=== PATIENT | female | born 1975 | race African-American/Black ===

== ENCOUNTER 2016-11-24 21:47 | Inpatient (IN) | payer MEDICARE, MEDICAID ==
[2016-11-24 23:09] LABS: ABSOLUTE BASOPHILS # (AUTO) 0.1 10^3/uL (0.0-0.2); ABSOLUTE EOSINOPHILS # (AUTO) 0.1 10^3/uL (0.0-0.6); ABSOLUTE LYMPHOCYTES (AUTO) 0.6 10^3/uL (0.5-4.7); ABSOLUTE MONOCYTES (AUTO) 0.4 10^3/uL (0.1-1.4); ABSOLUTE NEUT (AUTO) 4.2 10^3/uL (1.7-8.2); BASOPHILS % (AUTO) 1.3 % (0-2); EOSINOPHILS % (AUTO) 1.4 % (0-6); HEMATOCRIT 40.3 % (36.0-47.0); HEMOGLOBIN 13.1 g/dL (12.0-15.5); LYMPHOCYTES % (AUTO) 10.3 % (13-45); MEAN CORPUSCULAR HEMOGLOBIN 29.3 pg (27.0-33.4); MEAN CORPUSCULAR HGB CONC 32.6 g/dL (32.0-36.0); MEAN CORPUSCULAR VOLUME 90 fl (80-97); MONOCYTES % (AUTO) 8.2 % (3-13); RED BLOOD COUNT 4.47 10^6/uL (3.72-5.28); RED CELL DISTRIBUTION WIDTH 15.9 % (11.5-14.0); SEGMENTED NEUTROPHILS % (AUTO) 78.8 % (42-78); WHITE BLOOD COUNT 5.4 10^3/uL (4.0-10.5)
[2016-11-24] MEDS ORDERED: ALBUTEROL SULFATE HFA (90 MCG/PUFF) 200 PUFF/8.5 GM MDI IH PRN (23:15)
[2016-11-24 23:21] LABS: ANION GAP 10 (5-19); BLOOD UREA NITROGEN 44 mg/dL (7-20); CALCIUM 8.1 mg/dL (8.4-10.2); CARBON DIOXIDE 21 mmol/L (22-30); CHLORIDE 112 mmol/L (98-107); CREATININE RESULT 2.28 mg/dL (0.52-1.25); GLUCOSE 70 mg/dL (75-110); POTASSIUM 3.8 mmol/L (3.6-5.0)
[2016-11-24] MEDS ORDERED: CARVEDILOL 12.5 MG TABLET PO SCH (23:30)
[2016-11-24] MEDS ORDERED: FUROSEMIDE 80 MG TABLET PO SCH (23:30)
[2016-11-25] MEDS: DIPHENHYDRAMINE HCL 25 MG CAPSULE PO PRN ×4 (01:05→21:29)
[2016-11-25] MEDS: MORPHINE SULFATE 10 MG/ML INJ IV PRN ×3 (01:05→21:29)
[2016-11-25 07:33] LABS: PROTHROMBIN TIME 15.1 SEC (11.4-15.4)
[2016-11-25 07:34] LABS: PARTIAL THROMBOPLASTIN TIME 33.6 SEC (23.5-35.8)
[2016-11-25] MEDS: METOLAZONE 5 MG TABLET PO SCH (10:18)
[2016-11-25] MEDS: CARVEDILOL 12.5 MG TABLET PO SCH ×2 (10:19→21:29)
[2016-11-25] MEDS: FAMOTIDINE 20 MG TABLET PO SCH (10:19)
[2016-11-25] MEDS: LISINOPRIL 10 MG TABLET PO SCH (10:19)
[2016-11-25] MEDS: ISOSORBIDE MONONITRATE 60 MG TAB.ER.24H PO SCH (10:20)
[2016-11-25] MEDS: DIGOXIN 0.125 MG TABLET PO SCH (10:20)
[2016-11-25] MEDS: FUROSEMIDE 80 MG TABLET PO SCH (13:09)
--- NOTE | 2016-11-25 17:38 | PDOC H&P ---
History of Present Illness Admission Date/PCP: 11/24/16 21:47 VU GUZMAN MD History of Present Illness: BERONICA YEUNG is a 41 year old female, she also history of chronic combined systolic and diastolic failure, she was admitted directly from the office to the hospital because it was felt that she have ascites on that she needed to have abdominal paracentesis, but the CT scan of the abdomen and pelvis did not show any ascite it showed abdominal wall anasarca. She was admitted for observation Past Medical History Cardiac Medical History: Reports: Congestive Heart Failure, Coronary Artery Disease, Myocardial Infarction, Hypertension Endocrine Medical History: Reports: Diabetes Mellitus Type 2 Renal/ Medical History: Reports: Chronic Kidney Disease - Chronic kidney disease stage IV, Other - Nephrotic syndrome GI Medical History: Reports: Gastroesophageal Reflux Disease Psychiatric Medical History: Reports: Depression Past Surgical History Past Surgical History: Reports: Cardiac Catheterization - stent x1, Coronary Stent, Pacemaker - AICD Social History Smoking Status: Never Smoker Frequency of Alcohol Use: None Hx Recreational Drug Use: No Hx Prescription Drug Abuse: No Family History Family History: Reviewed & Not Pertinent, Hypertension Parental Family History Reviewed: Yes Children Family History Reviewed: Yes Sibling(s) Family History Reviewed.: Yes Medication/Allergy Home Medications: Albuterol Sulfate [Proair Respiclick] 90 mcg IH Q4HP PRN 11/25/16 Allopurinol [Zyloprim 100 mg Tablet] 100 mg PO DAILY 11/25/16 Aspirin [Aspirin 81 mg Chewable Tablet] 81 mg PO DAILY 11/25/16 Atorvastatin Calcium [Lipitor 80 mg Tablet] 80 mg PO DAILY 11/25/16 Carvedilol [Coreg 25 mg Tablet] 12.5 tab PO Q12 11/25/16 Diazepam [Valium] 10 mg PO DAILY 11/25/16 Diphenhydramine HCl [Benadryl] 50 mg PO Q8 11/25/16 Docusate Sodium [Colace 100 mg Capsule] 100 mg PO BIDP PRN 11/25/16 Furosemide [Lasix] 80 mg PO BID 11/25/16 Isosorbide Mononitrate [Isosorbide Mononitrate ER] 120 mg PO DAILY 11/25/16 Morphine Sulfate [Morphine Ir 15 Mg Tablet] 10 mg PO Q8 11/25/16 Omeprazole 40 mg PO DAILY 02/28/17 Sacubitril/Valsartan [Entresto 24 mg-26 mg Tablet] 1 each PO BID 11/25/16 Simethicone [Gas Relief] 125 mg PO QID 11/25/16 Allergies/Adverse Reactions: hydrocodone bitartrate [From Vicodin] Allergy (Verified 11/14/13 15:11) Hives hydromorphone HCl [From Dilaudid] Allergy (Verified 11/14/13 15:11) Hives levofloxacin [From Levaquin] Allergy (Verified 11/14/13 15:11) Hives oxycodone HCl [From Percocet] Allergy (Verified 11/14/13 15:11) Hives tramadol [Tramadol] Allergy (Verified 11/14/13 15:11) Hives Review of Systems Constitutional: PRESENT: fatigue, weight gain Cardiovascular: PRESENT: dyspnea on exertion Gastrointestinal: PRESENT: abdominal pain, bloating, nausea Musculoskeletal: PRESENT: back pain Psychiatric: PRESENT: depression Physical Exam Vital Signs: Temp Pulse Resp BP Pulse Ox 98.8 F 73 16 141/96 H 100 11/25/16 16:00 11/25/16 16:00 11/25/16 16:00 11/25/16 16:00 11/25/16 16:00 Intake & Output 11/24/16 11/25/16 11/26/16 06:59 06:59 06:59 Intake Total 360 Balance 360 Weight 109.225 kg General appearance: PRESENT: mild distress Head exam: PRESENT: atraumatic, normocephalic Eye exam: PRESENT: conjunctiva pink, EOMI, PERRLA Mouth exam: PRESENT: moist, tongue midline Neck exam: PRESENT: full ROM Respiratory exam: PRESENT: crackles Cardiovascular exam: PRESENT: RRR, +S1, +S2 Vascular exam: PRESENT: normal capillary refill GI/Abdominal exam: PRESENT: normal bowel sounds, soft, other - There is abdominal wall edema Rectal exam: PRESENT: deferred Extremities exam: PRESENT: pedal edema, other - There is lower extremity up to the thighs Neurological exam: PRESENT: alert, awake, oriented to person, oriented to place , oriented to time, oriented to situation, CN II-XII grossly intact Psychiatric exam: PRESENT: appropriate affect, normal mood Skin exam: PRESENT: dry, intact, warm Results Laboratory Results: 11/24/16 23:05 11/24/16 23:05 11/24/16 11/24/16 23:05 23:05 WBC 5.4 RBC 4.47 Hgb 13.1 Hct 40.3 MCV 90 MCH 29.3 MCHC 32.6 RDW 15.9 H Plt Count 190 Seg Neutrophils % 78.8 H Lymphocytes % 10.3 L Monocytes % 8.2 Eosinophils % 1.4 Basophils % 1.3 Absolute Neutrophils 4.2 Absolute Lymphocytes 0.6 Absolute Monocytes 0.4 Absolute Eosinophils 0.1 Absolute Basophils 0.1 Sodium 143.0 Potassium 3.8 Chloride 112 H Carbon Dioxide 21 L Anion Gap 10 BUN 44 H Creatinine 2.28 H Est GFR ( Amer) 29 L Est GFR (Non-Af Amer) 24 L Glucose 70 L Calcium 8.1 L Impressions: Abdomen/Pelvis CT 11/25/16 00:00 IMPRESSION: No ascites. Third-spacing of fluid along the abdominal wall fat, anasarca Moderate right, small left pleural effusions Assessment & Plan - Diagnosis (1) Anasarca Is this a current diagnosis for this admission?: YesPlan: The anasarca is from combination of nephrotic syndrome and chronic diastolic and systolic heart failure, she will be diuresed with furosemide infusion thank you (2) Chronic combined systolic (congestive) and diastolic (congestive) heart failure Is this a current diagnosis for this admission?: Yes (3) Chronic kidney disease, stage 4 (severe) Is this a current diagnosis for this admission?: Yes (4) Nephrotic syndrome Is this a current diagnosis for this admission?: Yes
[2016-11-25] MEDS: NORMAL SALINE 250 ML with FUROSEMIDE 250 MG IV PRN ×2 (20:38)
[2016-11-25] MEDS: ONDANSETRON 4 MG TAB.RAPDIS PO PRN (21:29)
[2016-11-26] MEDS: ZOLPIDEM TARTRATE 5 MG TABLET PO PRN ×2 (00:27→22:44)
[2016-11-26] MEDS: METOLAZONE 5 MG TABLET PO SCH (10:41)
[2016-11-26] MEDS: DIGOXIN 0.125 MG TABLET PO SCH (10:42)
[2016-11-26] MEDS: FAMOTIDINE 20 MG TABLET PO SCH (10:43)
[2016-11-26] MEDS: ISOSORBIDE MONONITRATE 60 MG TAB.ER.24H PO SCH (10:43)
[2016-11-26] MEDS: FUROSEMIDE 80 MG TABLET PO SCH (10:46)
[2016-11-26] MEDS: CARVEDILOL 12.5 MG TABLET PO SCH ×2 (10:46→22:44)
[2016-11-26] MEDS: LISINOPRIL 10 MG TABLET PO SCH (10:46)
--- NOTE | 2016-11-26 17:20 | PDOC PROGRESS REPORT ---
Subjective Progress Note for:: 11/26/16 Subjective:: Patient was admitted for observation due to anasarca for combination of nephrotic syndrome and combined diastolic and systolic heart failure. She was admitted for treatment, she is diuresing quite well with the intravenous furosemide. She said she wants to stay one more day because of the very good result she is seeing. Physical Exam Vital Signs: Temp Pulse Resp BP Pulse Ox 97.3 F 70 20 122/81 98 11/26/16 15:56 11/26/16 15:56 11/26/16 15:56 11/26/16 15:56 11/26/16 15:56 Intake & Output 11/25/16 11/26/16 11/27/16 06:59 06:59 06:59 Intake Total 360 1175 747 Balance 360 1175 747 Weight 109.225 kg 107.2 kg General appearance: PRESENT: no acute distress Eye exam: PRESENT: PERRLA Respiratory exam: PRESENT: clear to auscultation abdi Cardiovascular exam: PRESENT: +S1, +S2 GI/Abdominal exam: PRESENT: other - Abdominal wall edema Neurological exam: PRESENT: alert, CN II-XII grossly intact Results Laboratory Results: 11/24/16 23:05 11/24/16 23:05 Impressions: Abdomen/Pelvis CT 11/25/16 00:00 IMPRESSION: No ascites. Third-spacing of fluid along the abdominal wall fat, anasarca Moderate right, small left pleural effusions Assessment & Plan - Diagnosis (1) Anasarca Is this a current diagnosis for this admission?: YesPlan: She will continue furosemide infusion at the same rate (2) Chronic combined systolic (congestive) and diastolic (congestive) heart failure Is this a current diagnosis for this admission?: Yes (3) Chronic kidney disease, stage 4 (severe) Is this a current diagnosis for this admission?: Yes (4) Nephrotic syndrome Is this a current diagnosis for this admission?: Yes
[2016-11-26 18:31] LABS: ANION GAP 9 (5-19); BLOOD UREA NITROGEN 49 mg/dL (7-20); CALCIUM 8.6 mg/dL (8.4-10.2); CARBON DIOXIDE 27 mmol/L (22-30); CHLORIDE 103 mmol/L (98-107); GLUCOSE 98 mg/dL (75-110); POTASSIUM 4.6 mmol/L (3.6-5.0); SODIUM 138.7 mmol/L (137-145)
[2016-11-26] MEDS: NORMAL SALINE 250 ML with FUROSEMIDE 250 MG IV PRN ×2 (18:36)
[2016-11-26] MEDS: DIPHENHYDRAMINE HCL 25 MG CAPSULE PO PRN (22:44)
[2016-11-26] MEDS: ONDANSETRON 4 MG TAB.RAPDIS PO PRN (22:44)
[2016-11-26] MEDS: MORPHINE SULFATE 10 MG/ML INJ IV PRN (22:55)
[2016-11-27] MEDS: METOLAZONE 5 MG TABLET PO SCH (10:06)
[2016-11-27] MEDS: DIGOXIN 0.125 MG TABLET PO SCH (10:06)
[2016-11-27] MEDS: FAMOTIDINE 20 MG TABLET PO SCH (10:07)
[2016-11-27] MEDS: ISOSORBIDE MONONITRATE 60 MG TAB.ER.24H PO SCH (10:08)
[2016-11-27] MEDS: CARVEDILOL 12.5 MG TABLET PO SCH ×2 (10:08→22:26)
[2016-11-27] MEDS: NORMAL SALINE 250 ML with FUROSEMIDE 250 MG IV PRN ×4 (10:08→18:38)
[2016-11-27] MEDS: LISINOPRIL 10 MG TABLET PO SCH (10:08)
--- NOTE | 2016-11-27 20:28 | PDOC PROGRESS REPORT ---
Subjective Progress Note for:: 11/27/16 Subjective:: Patient seen by the bedside she is still on Lasix infusion Physical Exam Vital Signs: Temp Pulse Resp BP Pulse Ox 97.5 F 72 16 115/75 98 11/27/16 17:11 11/27/16 17:11 11/27/16 17:11 11/27/16 17:11 11/27/16 17:11 Intake & Output 11/26/16 11/27/16 11/28/16 06:59 06:59 06:59 Intake Total 1175 1747 621 Balance 1175 1747 621 Weight 107.2 kg 106.2 kg General appearance: PRESENT: no acute distress Eye exam: PRESENT: PERRLA Respiratory exam: PRESENT: decreased breath sounds Cardiovascular exam: PRESENT: +S1, +S2 GI/Abdominal exam: PRESENT: soft Neurological exam: PRESENT: alert, CN II-XII grossly intact Results Laboratory Results: 11/24/16 23:05 11/26/16 18:00 Impressions: Abdomen/Pelvis CT 11/25/16 00:00 IMPRESSION: No ascites. Third-spacing of fluid along the abdominal wall fat, anasarca Moderate right, small left pleural effusions Assessment & Plan - Diagnosis (1) Anasarca Is this a current diagnosis for this admission?: Yes (2) Chronic combined systolic (congestive) and diastolic (congestive) heart failure Is this a current diagnosis for this admission?: Yes (3) Chronic kidney disease, stage 4 (severe) Is this a current diagnosis for this admission?: Yes (4) Nephrotic syndrome Is this a current diagnosis for this admission?: Yes
[2016-11-27 20:57] LABS: ANION GAP 8 (5-19); BLOOD UREA NITROGEN 58 mg/dL (7-20); CALCIUM 8.4 mg/dL (8.4-10.2); CARBON DIOXIDE 31 mmol/L (22-30); CHLORIDE 99 mmol/L (98-107); CREATININE RESULT 2.69 mg/dL (0.52-1.25); GLUCOSE 81 mg/dL (75-110); POTASSIUM 3.9 mmol/L (3.6-5.0); SODIUM 137.8 mmol/L (137-145)
[2016-11-27] MEDS: DIPHENHYDRAMINE HCL 25 MG CAPSULE PO PRN (22:26)
[2016-11-27] MEDS: ONDANSETRON 4 MG TAB.RAPDIS PO PRN (22:26)
[2016-11-27] MEDS: ZOLPIDEM TARTRATE 5 MG TABLET PO PRN (22:27)
[2016-11-27] MEDS: MORPHINE SULFATE 10 MG/ML INJ IV PRN (23:22)
[2016-11-27] MEDS: DOCUSATE SODIUM 100 MG CAPSULE PO PRN (23:22)
[2016-11-28] MEDS: FUROSEMIDE 80 MG TABLET PO SCH ×2 (06:24→13:36)
[2016-11-28] MEDS: METOLAZONE 5 MG TABLET PO SCH (10:57)
[2016-11-28] MEDS: FAMOTIDINE 20 MG TABLET PO SCH (10:57)
[2016-11-28] MEDS: CARVEDILOL 12.5 MG TABLET PO SCH ×2 (11:08→22:57)
[2016-11-28] MEDS: LISINOPRIL 10 MG TABLET PO SCH (11:08)
[2016-11-28] MEDS: DIGOXIN 0.125 MG TABLET PO SCH (11:08)
[2016-11-28] MEDS: ISOSORBIDE MONONITRATE 60 MG TAB.ER.24H PO SCH (11:08)
[2016-11-28] MEDS: DOCUSATE SODIUM 100 MG CAPSULE PO PRN ×2 (11:13→22:57)
[2016-11-28] MEDS: MAGNESIUM CITRATE 296 ML BOTTLE PO PRN (22:56)
[2016-11-28] MEDS: ONDANSETRON 4 MG TAB.RAPDIS PO PRN (22:57)
[2016-11-28] MEDS: DIPHENHYDRAMINE HCL 25 MG CAPSULE PO PRN (22:57)
[2016-11-28] MEDS: ZOLPIDEM TARTRATE 5 MG TABLET PO PRN (22:57)
[2016-11-28] MEDS: MORPHINE SULFATE 10 MG/ML INJ IV PRN (22:57)
[2016-11-29] MEDS: MORPHINE SULFATE 10 MG/ML INJ IV PRN ×2 (04:01→21:55)
[2016-11-29] MEDS: DIPHENHYDRAMINE HCL 25 MG CAPSULE PO PRN ×2 (06:09→21:55)
[2016-11-29] MEDS: MAGNESIUM CITRATE 296 ML BOTTLE PO PRN (06:12)
[2016-11-29] MEDS: CARVEDILOL 12.5 MG TABLET PO SCH ×2 (10:43→21:55)
[2016-11-29] MEDS: DIGOXIN 0.125 MG TABLET PO SCH (10:43)
[2016-11-29] MEDS: ISOSORBIDE MONONITRATE 60 MG TAB.ER.24H PO SCH (10:43)
[2016-11-29] MEDS: METOLAZONE 5 MG TABLET PO SCH (10:43)
[2016-11-29] MEDS: FAMOTIDINE 20 MG TABLET PO SCH (10:44)
[2016-11-29] MEDS: DOCUSATE SODIUM 100 MG CAPSULE PO PRN ×2 (10:46→23:58)
[2016-11-29] MEDS: LISINOPRIL 10 MG TABLET PO SCH (10:47)
--- NOTE | 2016-11-29 17:12 | PDOC PROGRESS REPORT ---
Subjective Progress Note for:: 11/28/16 Subjective:: Patient was seen by the bedside, she continues to require Lasix infusion she is diuresing very well Physical Exam Vital Signs: Temp Pulse Resp BP Pulse Ox 97.3 F 73 14 114/68 99 11/28/16 15:08 11/28/16 15:08 11/28/16 15:08 11/28/16 15:08 11/28/16 15:08 Intake & Output 11/27/16 11/28/16 11/29/16 06:59 06:59 06:59 Intake Total 1747 1646 1230 Balance 1747 1646 1230 Weight 106.2 kg 105.6 kg General appearance: PRESENT: no acute distress Eye exam: PRESENT: PERRLA Cardiovascular exam: PRESENT: +S1, +S2 Neurological exam: PRESENT: alert Results Laboratory Results: 11/24/16 23:05 11/27/16 20:40 11/27/16 20:40 Sodium 137.8 Potassium 3.9 Chloride 99 Carbon Dioxide 31 H Anion Gap 8 BUN 58 H Creatinine 2.69 H Est GFR ( Amer) 24 L Est GFR (Non-Af Amer) 20 L Glucose 81 Calcium 8.4 Impressions: Abdomen/Pelvis CT 11/25/16 00:00 IMPRESSION: No ascites. Third-spacing of fluid along the abdominal wall fat, anasarca Moderate right, small left pleural effusions Assessment & Plan - Diagnosis (1) Anasarca Is this a current diagnosis for this admission?: YesPlan: Continue IV furosemide (2) Chronic combined systolic (congestive) and diastolic (congestive) heart failure Is this a current diagnosis for this admission?: Yes (3) Chronic kidney disease, stage 4 (severe) Is this a current diagnosis for this admission?: Yes (4) Nephrotic syndrome Is this a current diagnosis for this admission?: Yes
[2016-11-29] MEDS ORDERED: FUROSEMIDE INJ/PF 100 MG/10 ML SDV ONE (22:58)
[2016-11-30] MEDS: MORPHINE SULFATE 10 MG/ML INJ IV PRN ×3 (01:04→18:43)
[2016-11-30] MEDS: MAGNESIUM CITRATE 296 ML BOTTLE PO PRN (09:55)
[2016-11-30] MEDS: CARVEDILOL 12.5 MG TABLET PO SCH ×2 (09:55→21:31)
[2016-11-30] MEDS: DIGOXIN 0.125 MG TABLET PO SCH (09:56)
[2016-11-30] MEDS: LISINOPRIL 10 MG TABLET PO SCH (09:56)
[2016-11-30] MEDS: METOLAZONE 5 MG TABLET PO SCH (09:56)
[2016-11-30] MEDS: FAMOTIDINE 20 MG TABLET PO SCH (09:56)
[2016-11-30] MEDS: ISOSORBIDE MONONITRATE 60 MG TAB.ER.24H PO SCH (09:56)
[2016-11-30] MEDS: DIPHENHYDRAMINE HCL 25 MG CAPSULE PO PRN ×2 (10:00→18:45)
--- NOTE | 2016-11-30 15:18 | PDOC PROGRESS REPORT ---
Subjective Progress Note for:: 11/29/16 Subjective:: Patient was seen by the bedside, she has no new complaints Physical Exam Vital Signs: Temp Pulse Resp BP Pulse Ox 97.4 F 70 20 109/68 100 11/30/16 07:44 11/30/16 12:26 11/30/16 12:26 11/30/16 12:26 11/30/16 12:26 Intake & Output 11/29/16 11/30/16 12/01/16 06:59 06:59 06:59 Intake Total 2080 690 Output Total 1800 Balance 280 690 General appearance: PRESENT: no acute distress, well-developed, well-nourished Head exam: PRESENT: atraumatic, normocephalic Eye exam: PRESENT: conjunctiva pink, EOMI, PERRLA Ear exam: PRESENT: normal external ear exam Neck exam: PRESENT: full ROM Respiratory exam: PRESENT: clear to auscultation abdi Cardiovascular exam: PRESENT: RRR, +S1, +S2 Pulses: PRESENT: normal dorsalis pedis pul, +2 pedal pulses bilateral Vascular exam: PRESENT: normal capillary refill GI/Abdominal exam: PRESENT: normal bowel sounds, soft Rectal exam: PRESENT: deferred Neurological exam: PRESENT: alert, awake, oriented to person, oriented to place , oriented to time, oriented to situation, CN II-XII grossly intact. ABSENT: motor sensory deficit Psychiatric exam: PRESENT: appropriate affect, normal mood Skin exam: PRESENT: dry, intact, warm Results Laboratory Results: 11/24/16 23:05 11/27/16 20:40 Impressions: Abdomen/Pelvis CT 11/25/16 00:00 IMPRESSION: No ascites. Third-spacing of fluid along the abdominal wall fat, anasarca Moderate right, small left pleural effusions Assessment & Plan - Diagnosis (1) Anasarca Is this a current diagnosis for this admission?: Yes (2) Chronic combined systolic (congestive) and diastolic (congestive) heart failure Is this a current diagnosis for this admission?: Yes (3) Chronic kidney disease, stage 4 (severe) Is this a current diagnosis for this admission?: Yes (4) Nephrotic syndrome Is this a current diagnosis for this admission?: Yes
--- NOTE | 2016-11-30 16:07 | PDOC DISCHARGE SUMMARY ---
General - Admit/Disc Date/PCP Admission Date/Primary Care Provider: 11/27/16 11:45 VU GUZMAN MD Discharge Date: 12/01/16 - Discharge Diagnosis (1) Anasarca Is this a current diagnosis for this admission?: Yes (2) Chronic combined systolic (congestive) and diastolic (congestive) heart failure Is this a current diagnosis for this admission?: Yes (3) Chronic kidney disease, stage 4 (severe) Is this a current diagnosis for this admission?: Yes (4) Nephrotic syndrome Is this a current diagnosis for this admission?: Yes - Additional Information Discharge Diet: Cardiac, Diabetic Discharge Activity: Activity As Tolerated, Balance Activity w/Rest, Weigh Daily Home Medications: Albuterol Sulfate [Proair Respiclick] 90 mcg IH Q4HP PRN 11/25/16 Allopurinol [Zyloprim 100 mg Tablet] 100 mg PO DAILY 11/25/16 Aspirin [Aspirin 81 mg Chewable Tablet] 81 mg PO DAILY 11/25/16 Atorvastatin Calcium [Lipitor 80 mg Tablet] 80 mg PO DAILY 11/25/16 Carvedilol [Coreg 25 mg Tablet] 12.5 tab PO Q12 11/25/16 Docusate Sodium [Colace 100 mg Capsule] 100 mg PO BIDP PRN 11/25/16 Furosemide [Lasix] 80 mg PO BID 11/25/16 Isosorbide Mononitrate [Isosorbide Mononitrate ER] 120 mg PO DAILY 11/25/16 Omeprazole 40 mg PO DAILY 11/25/16 Sacubitril/Valsartan [Entresto 24 mg-26 mg Tablet] 1 each PO BID 11/25/16 Simethicone [Gas Relief] 125 mg PO QID 11/25/16 History of Present Illness History of Present Illness: BERONICA YEUNG is a 41 year old female, she also history of chronic combined systolic and diastolic failure, she was admitted directly from the office to the hospital because it was felt that she have ascites on that she needed to have abdominal paracentesis, but the CT scan of the abdomen and pelvis did not show any ascite it showed abdominal wall anasarca. She was admitted for observation Hospital Course Hospital Course: Patient was admitted because of anasarca on the fact that she may have ascites the initial intent was to do paracentesis of the abdomen but CT scan of the abdomen and pelvis was done and it was negative for ascites. She was treated with IV furosemide infusion with very good result she diuresed quite well she lost a tremendous amount of fluid. Physical Exam Vital Signs: Temp Pulse Resp BP Pulse Ox 97.4 F 70 20 109/68 100 11/30/16 07:44 11/30/16 12:26 11/30/16 12:26 11/30/16 12:26 11/30/16 12:26 Intake & Output 11/29/16 11/30/16 12/01/16 06:59 06:59 06:59 Intake Total 2080 690 Output Total 1800 Balance 280 690 General appearance: PRESENT: no acute distress Eye exam: PRESENT: PERRLA Respiratory exam: PRESENT: clear to auscultation abdi Cardiovascular exam: PRESENT: +S1, +S2 GI/Abdominal exam: PRESENT: soft Extremities exam: PRESENT: other - There is lower extremity edema Neurological exam: PRESENT: alert, CN II-XII grossly intact Results Laboratory Results: 11/24/16 23:05 11/27/16 20:40 Impressions: Abdomen/Pelvis CT 11/25/16 00:00 IMPRESSION: No ascites. Third-spacing of fluid along the abdominal wall fat, anasarca Moderate right, small left pleural effusions
[2016-11-30] MEDS: ONDANSETRON 4 MG TAB.RAPDIS PO PRN (18:45)
[2016-12-01] MEDS: MORPHINE SULFATE 10 MG/ML INJ IV PRN ×2 (00:14→10:07)
[2016-12-01] MEDS: NORMAL SALINE 250 ML with FUROSEMIDE 250 MG IV PRN ×2 (00:14)
[2016-12-01 08:25] VITALS: BP 108/74
[2016-12-01] MEDS: METOLAZONE 5 MG TABLET PO SCH (10:08)
[2016-12-01] MEDS: DIGOXIN 0.125 MG TABLET PO SCH (10:08)
[2016-12-01] MEDS: ISOSORBIDE MONONITRATE 60 MG TAB.ER.24H PO SCH (10:08)
[2016-12-01] MEDS: DIPHENHYDRAMINE HCL 25 MG CAPSULE PO PRN (10:08)
[2016-12-01] MEDS: LISINOPRIL 10 MG TABLET PO SCH (10:09)
[2016-12-01] MEDS: CARVEDILOL 12.5 MG TABLET PO SCH (10:09)
[2016-12-01] MEDS: FAMOTIDINE 20 MG TABLET PO SCH (10:09)
== END 2016-12-01 13:00 | disposition home or self-care (01) | DRG 292 ==
LOC: 5 21:47 → OBSVTOIN 11-27 11:45
PROVIDERS: ADMIT Internal Medicine; ATTEND Internal Medicine
PROC: 5A09357 Assistance with Respiratory Ventilation, Less than 24 Consecutive Hours, Continuous Positive Airway Pressure (ICD-10-PCS; principal; 2016-11-25)
DX: I13.0 Hypertensive heart and chronic kidney disease with heart failure and stage 1 through stage 4 chronic kidney disease, or unspecified chronic kidney disease (principal); I50.42 Chronic combined systolic (congestive) and diastolic (congestive) heart failure; N18.4 Chronic kidney disease, stage 4 (severe); I25.10 Atherosclerotic heart disease of native coronary artery without angina pectoris; E11.22 Type 2 diabetes mellitus with diabetic chronic kidney disease; K21.9 Gastro-esophageal reflux disease without esophagitis; F32.9 Major depressive disorder, single episode, unspecified; I25.2 Old myocardial infarction; Z88.6 Allergy status to analgesic agent; Z79.899 Other long term (current) drug therapy; Z95.5 Presence of coronary angioplasty implant and graft; Z95.810 Presence of automatic (implantable) cardiac defibrillator; Z88.3 Allergy status to other anti-infective agents; Z82.49 Family history of ischemic heart disease and other diseases of the circulatory system
CPT/HCPCS: 36415; 74176; 80048; 82962; 85025; 85610; 85730; 94660; G0378; G0379; J1940; J2270; J3490; J7050; S0119

== ENCOUNTER 2017-05-04 20:40 | Inpatient (IN) | payer MEDICARE, MEDICAID ==
[2017-05-04] MEDS ORDERED: FENTANYL CITRATE INJ/PF 100 MCG/2 ML AMPUL IV ONE (21:31)
--- NOTE | 2017-05-04 21:32 | ER Document Report ---
ED General - General Chief Complaint: Shortness Of Breath Stated Complaint: SHORTNESS OF BREATH Time Seen by Provider: 05/04/17 20:47 Notes: Patient is a 42-year-old female with past medical history of chronic combined systolic and diastolic heart failure, chronic kidney disease, morbid obesity, who presents with progressively worsening shortness of breath, worsening bilateral lower extremity edema as well as increasing abdominal edema. Patient saw her primary care doctor in the office last week and was actually scheduled for direct admission did not show for that. Since that time states that she is actually out of her furosemide. She states this is significantly worsened her swelling. Nothing seems to improve her symptoms. She denies any chest pain but does note some diffuse lower abdominal tenderness that she describes as a constant, cramping, aching pain. Has a history of similar presentations in the past. TRAVEL OUTSIDE OF THE [place] IN LAST 30 DAYS: No - Related Data Allergies/Adverse Reactions: hydrocodone bitartrate [From Vicodin] Allergy (Verified 05/04/17 22:08) Hives hydromorphone HCl [From Dilaudid] Allergy (Verified 05/04/17 22:08) Hives levofloxacin [From Levaquin] Allergy (Verified 05/04/17 22:08) Hives oxycodone HCl [From Percocet] Allergy (Verified 05/04/17 22:08) Hives tramadol [Tramadol] Allergy (Verified 05/04/17 22:08) Hives Home Medications: Current Home Medications Cholecalciferol (Vitamin D3) [Vitamin D3] 4,000 unit PO DAILY 05/04/17 [History] Diphenhydramine HCl [Benadryl 25 mg Capsule] 1 cap PO Q4HP PRN 05/04/17 [History ] Lubiprostone [Amitiza 24 Mcg Capsule] 24 mcg PO DAILYP PRN 05/04/17 [History] Medroxyprogesterone Acetate 10 mg PO DAILY 05/04/17 [History] Ranitidine HCl 150 mg PO BID 05/04/17 [History] Past Medical History - General Information source: Patient - Social History Smoking Status: Never Smoker Frequency of alcohol use: None Drug Abuse: None Lives with: Family Family History: Reviewed & Not Pertinent, Hypertension - Past Medical History Cardiac Medical History: Reports: Hx Congestive Heart Failure, Hx Coronary Artery Disease, Hx Heart Attack, Hx Hypertension Pulmonary Medical History: Denies: Hx Tuberculosis Neurological Medical History: Denies: Hx Seizures Endocrine Medical History: Reports: Hx Diabetes Mellitus Type 2 Renal/ Medical History: Reports: Hx Renal Insufficiency GI Medical History: Reports: Hx Gastroesophageal Reflux Disease Skin Medical History: Reports Hx Cellulitis - Left upper extremity cellulitis week and a half ago Psychiatric Medical History: Reports: Hx Depression Past Surgical History: Reports: Hx Cardiac Catheterization - stent x1, Hx Cardiac Surgery - pace/defib, Hx Coronary Stent, Hx Pacemaker - AICD. Denies: Hx Hysterectomy - Immunizations Hx Diphtheria, Pertussis, Tetanus Vaccination: No Hx Pneumococcal Vaccination: 06/28/13 Review of Systems - Review of Systems Notes: Constitutional: Negative for fever. HENT: Negative for sore throat. Eyes: Negative for visual changes. Cardiovascular: Negative for chest pain. Respiratory: Positive for shortness of breath. Gastrointestinal: Negative for abdominal pain, vomiting or diarrhea. Genitourinary: Negative for dysuria. Musculoskeletal: Positive for bilateral lower extremity edema Skin: Negative for rash. Neurological: Negative for headaches, weakness or numbness. 10 point ROS negative except as marked above and in HPI. Physical Exam - Vital signs Vitals: Temp 98.0 F 05/04/17 20:45 Interpretation: Tachycardic, Tachypneic Notes: PHYSICAL EXAMINATION: GENERAL: Appears moderately uncomfortable but in no acute distress HEAD: Atraumatic, normocephalic. EYES: Pupils equal round and reactive to light, extraocular movements intact, sclera anicteric, conjunctiva are normal. ENT: nares patent, oropharynx clear without exudates. Moist mucous membranes. NECK: Normal range of motion, supple without lymphadenopathy LUNGS: Diminished breath sounds at the bases bilaterally. Mild tachypnea with respiratory rate of 23 at time of assessment. No retractions HEART: Regular rate and rhythm without murmurs ABDOMEN: Soft, anasarca present, diffuse mild tenderness without localization, normoactive bowel sounds. No guarding, no rebound. No masses appreciated. EXTREMITIES: Normal range of motion, 4+ pitting edema in the bilateral lower extremities NEUROLOGICAL: No focal neurological deficits. Moves all extremities spontaneously and on command. PSYCH: Normal mood, normal affect. SKIN: Warm, Dry, normal turgor, no rashes or lesions noted. Course - Re-evaluation Re-evalutation: 05/04/17 21:30 Patient presents with concerns of increasing bilateral lower extremity edema, lower abdominal swelling and increasing shortness of breath over the last several months. Admits that she has been out of her furosemide which she takes a total of 360 mg daily for the past 4 days. On exam she does have 4+ pitting edema in the bilateral lower extremities is equal and symmetric. She has significant abdominal wall edema as well. Lungs do show rales at the bases bilaterally. Vitals show mild tachypnea but no hypoxemia or tachycardia. Will obtain basic labs and reassess suspect likely volume overload in the setting of untreated CHF 05/04/17 23:43 Patient's laboratories do demonstrate findings consistent with an acute CHF exacerbation, proBNP of 26,500. Patient has had a 12 kg weight gain since November which I suspect is largely edema based on her exam. She has received 180 mg IV of Lasix here in the emergency department. I discussed this case with patient's primary care provider Dr. Workman will admit. Her vitals remain within normal limits at this time. Her troponin is moderately elevated at 0.044 which is actually below patient's baseline on prior hospitalizations. - Vital Signs Vital signs: Temp Pulse Resp BP Pulse Ox 98.0 F 21 H 148/115 H 100 05/04/17 20:45 05/04/17 23:00 05/04/17 22:36 05/04/17 22:36 - Laboratory Result Diagrams: 05/04/17 22:30 05/04/17 21:30 Laboratory results interpreted by me: 05/04/17 05/04/17 05/04/17 21:30 21:30 22:30 RDW 19.2 H Lymphocytes % 11.4 L Chloride 109 H BUN 57 H Creatinine 2.31 H Est GFR ( Amer) 28 L Est GFR (Non-Af Amer) 23 L Glucose 66 L Calcium 7.9 L Direct Bilirubin 0.5 H Alkaline Phosphatase 144 H NT-Pro-B Natriuret Pep 35644 H Total Protein 5.2 L Albumin 2.7 L - Diagnostic Test Radiology reviewed: Image reviewed, Reports reviewed Radiology results interpreted by me: 05/05/17 00:14 Chest x-ray: Bibasilar pulmonary edema - EKG Interpretation by Me Additional EKG results interpreted by me: 05/05/17 00:22 Low voltage in all leads. Sinus rhythm. Rate 70. No ST elevations or depressions. Discharge - Discharge Clinical Impression: Acute systolic heart failure, Chronic kidney disease, stage 4 (severe), Bilateral lower extremity edema CHF exacerbation Qualifiers: Congestive heart failure type: unspecified congestive heart failure type Qualified Code(s): I50.9 - Heart failure, unspecified Condition: Fair Disposition: ADMITTED INPATIENT Admitting Provider: Jacinta Unit Admitted: [facility]
[2017-05-04 21:58] LABS: ALANINE AMINOTRANSFERASE 25 U/L (9-52); ALBUMIN 2.7 g/dL (3.5-5.0); ALKALINE PHOSPHATASE 144 U/L (38-126); ANION GAP 7 (5-19); ASPARTATE AMINO TRANSFERASE 30 U/L (14-36); BILIRUBIN,DIRECT 0.5 mg/dL (0.0-0.4); BILIRUBIN,TOTAL 0.9 mg/dL (0.2-1.3); BLOOD UREA NITROGEN 57 mg/dL (7-20); CALCIUM 7.9 mg/dL (8.4-10.2); CARBON DIOXIDE 22 mmol/L (22-30); CHLORIDE 109 mmol/L (98-107); CREATININE RESULT 2.31 mg/dL (0.52-1.25); GLUCOSE 66 mg/dL (75-110); POTASSIUM 4.3 mmol/L (3.6-5.0); SODIUM 138.2 mmol/L (137-145); TOTAL PROTEIN 5.2 g/dL (6.3-8.2)
--- NOTE | 2017-05-04 22:06 | RADIOLOGY REPORT (SQ) ---
EXAM DESCRIPTION: CHEST SINGLE VIEW COMPLETED DATE/TIME: 05/04/2017 9:11 pm REASON FOR STUDY: sob COMPARISON: June 2016 EXAM PARAMETERS: NUMBER OF VIEWS: One view. TECHNIQUE: Single frontal radiographic view of the chest acquired. RADIATION DOSE: NA LIMITATIONS: None. FINDINGS: LUNGS AND PLEURA: There is patchy airspace consolidation in the right lung base most consi stent with a pneumonic infiltrate. I cannot exclude a small associated pleural effusion. The left l princess is clear. MEDIASTINUM AND HILAR STRUCTURES: No masses. Contour normal. HEART AND VASCULAR STRUCTURES: Cardiac silhouette remains enlarged. BONES: No acute findings. HARDWARE: AC ID device is identified in position. OTHER: No other significant finding. IMPRESSION: Patchy airspace consolidation in the right lung base most consistent with a pneumonic in filtrate. I cannot exclude a small associated pleural effusion. Other findings as noted above TECHNICAL DOCUMENTATION: JOB ID: [id number]
--- NOTE | 2017-05-04 22:16 | EKG REPORT ---
SEVERITY:- ABNORMAL ECG - ATRIAL-PACED COMPLEXES FIRST DEGREE AV BLOCK NONSPECIFIC INTRAVENTRICULAR CONDUCTION DELAY LOW VOLTAGE IN FRONTAL LEADS : Confirmed by: Megan Dozier 04-May-2017 22:16:00
[2017-05-04 22:18] LABS: TROPONIN I 0.044 ng/mL
[2017-05-04] MEDS ORDERED: FUROSEMIDE INJ/PF 100 MG/10 ML SDV IV ONE (22:24)
[2017-05-04 22:44] LABS: ABSOLUTE BASOPHILS # (AUTO) 0.1 10^3/uL (0.0-0.2); ABSOLUTE EOSINOPHILS # (AUTO) 0.1 10^3/uL (0.0-0.6); ABSOLUTE LYMPHOCYTES (AUTO) 0.5 10^3/uL (0.5-4.7); ABSOLUTE MONOCYTES (AUTO) 0.3 10^3/uL (0.1-1.4); ABSOLUTE NEUT (AUTO) 3.4 10^3/uL (1.7-8.2); BASOPHILS % (AUTO) 1.2 % (0-2); EOSINOPHILS % (AUTO) 2.8 % (0-6); HEMATOCRIT 39.8 % (36.0-47.0); HEMOGLOBIN 12.8 g/dL (12.0-15.5); HGB HCT DIFFERENCE -1.4; LYMPHOCYTES % (AUTO) 11.4 % (13-45); MEAN CORPUSCULAR HEMOGLOBIN 28.4 pg (27.0-33.4); MEAN CORPUSCULAR HGB CONC 32.3 g/dL (32.0-36.0); MEAN CORPUSCULAR VOLUME 88 fl (80-97); MONOCYTES % (AUTO) 7.8 % (3-13); RED BLOOD COUNT 4.53 10^6/uL (3.72-5.28); RED CELL DISTRIBUTION WIDTH 19.2 % (11.5-14.0); SEGMENTED NEUTROPHILS % (AUTO) 76.8 % (42-78); WHITE BLOOD COUNT 4.4 10^3/uL (4.0-10.5)
[2017-05-05] MEDS ORDERED: DOCUSATE SODIUM 100 MG CAPSULE PO PRN (03:04)
[2017-05-05] MEDS ORDERED: LUBIPROSTONE 24 MCG CAPSULE PO PRN (03:09)
[2017-05-05 04:55] LABS: HEMATOCRIT 41.7 % (36.0-47.0); HEMOGLOBIN 13.5 g/dL (12.0-15.5); HGB HCT DIFFERENCE -1.2; MEAN CORPUSCULAR HEMOGLOBIN 28.2 pg (27.0-33.4); MEAN CORPUSCULAR HGB CONC 32.4 g/dL (32.0-36.0); MEAN CORPUSCULAR VOLUME 87 fl (80-97); RED BLOOD COUNT 4.79 10^6/uL (3.72-5.28); RED CELL DISTRIBUTION WIDTH 19.3 % (11.5-14.0); WHITE BLOOD COUNT 5.2 10^3/uL (4.0-10.5)
[2017-05-05 05:22] LABS: ANION GAP 9 (5-19); BLOOD UREA NITROGEN 55 mg/dL (7-20); CALCIUM 7.9 mg/dL (8.4-10.2); CARBON DIOXIDE 20 mmol/L (22-30); CHLORIDE 110 mmol/L (98-107); CREATININE RESULT 2.29 mg/dL (0.52-1.25); GLUCOSE 101 mg/dL (75-110); POTASSIUM 3.9 mmol/L (3.6-5.0); SODIUM 139.2 mmol/L (137-145)
[2017-05-05] MEDS: ALLOPURINOL 100 MG TABLET PO SCH (09:21)
[2017-05-05] MEDS: CARVEDILOL 12.5 MG TABLET PO SCH ×2 (09:22→21:01)
[2017-05-05] MEDS: CHOLECALCIFEROL (D3) 1,000 UNIT TABLET PO SCH (09:22)
[2017-05-05] MEDS: FAMOTIDINE 20 MG TABLET PO SCH ×2 (09:22→21:01)
[2017-05-05] MEDS: MEDROXYPROGESTERONE ACET 10 MG TABLET PO SCH (09:24)
[2017-05-05] MEDS: LANSOPRAZOLE 30 MG TAB.RAP.DR PO SCH (09:24)
[2017-05-05] MEDS: SACUBITRIL/VALSARTAN 24 MG/26 MG TABLET PO SCH ×2 (09:24→21:01)
[2017-05-05] MEDS ORDERED: FUROSEMIDE 80 MG TABLET PO SCH (10:00)
[2017-05-05] MEDS ORDERED: ASPIRIN 81 MG TABLET, CHEWABLE PO SCH (10:00)
[2017-05-05] MEDS ORDERED: (PENDING PHARMACY ID) (Ranitidine Hcl [Ranitidine Hcl] 150 MG) PO SCH (10:00)
[2017-05-05] MEDS ORDERED: SACUBITRIL/VALSARTAN 24 MG/26 MG TABLET PO SCH (10:00)
--- NOTE | 2017-05-05 17:59 | RADIOLOGY REPORT (SQ) ---
EXAM DESCRIPTION: CT CHEST WITHOUT COMPLETED DATE/TIME: 05/05/2017 5:45 pm REASON FOR STUDY: pneumonia COMPARISON: Chest x-ray dated 05/04/2017, CT chest dated 11/21/2014 TECHNIQUE: CT scan performed of the chest without intravenous contrast. Images reviewed with lung, soft tissue and bone windows. Reconstructed coronal and sagittal MPR images reviewed. All images st ored on PACS. All CT scanners at this facility use dose modulation, iterative reconstruction, and/or weight based d osing when appropriate to reduce radiation dose to as low as reasonably achievable (ALARA). [facility]: Dose Right [facility]: CareDose [facility]: Dose Right [facility]: Teradose 4D [facility]: [employer] RADIATION DOSE: Up-to-date CT equipment and radiation dose reduction techniques were employed. CTDIv ol: 25.8 mGy. DLP: 952 mGy-cm. mGy. LIMITATIONS: No technical limitations. FINDINGS: LUNGS AND PLEURA: There is a moderate right-sided pleural effusion. There is right middle lobe airspace disease most consistent with pneumonia. The left lung field is grossly clear. HILAR AND MEDIASTINAL STRUCTURES: No identified masses or abnormal nodes. No obvious aneurysm. HEART AND VASCULAR STRUCTURES: No aneurysm. No pericardial effusion. UPPER ABDOMEN: No significant findings. Limited exam. THYROID AND OTHER SOFT TISSUES: There is diffuse subcutaneous edema. BONES: No significant finding. HARDWARE: Battery pack and leads are in place. OTHER: No other significant findings. IMPRESSION: Moderate right pleural effusion. Right middle lobe infiltrate consistent with pneumonia . Diffuse subcutaneous edema. TECHNICAL DOCUMENTATION: JOB ID: [id number] Quality ID # [id number]: Final reports with documentation of one or more dose reduction techniques (e.g., Au tomated exposure control, adjustment of the mA and/or kV according to patient size, use of iterative reconstruction technique) 2010 [employer]- All Rights Reserved
[2017-05-05 18:06] LABS: PROTHROMBIN TIME 14.9 SEC (11.4-15.4)
[2017-05-05 18:30] LABS: CREATINE KINASE 448 U/L (30-135); MAGNESIUM 1.9 mg/dL (1.6-2.3)
[2017-05-05 18:32] LABS: DIGOXIN < 0.40 ng/mL (0.8-2.0)
[2017-05-05 18:40] LABS: CREATINE KINASE MB 5.47 ng/mL (<4.55); TROPONIN I 0.033 ng/mL
[2017-05-05] MEDS: NORMAL SALINE 250 ML with FUROSEMIDE 250 MG IV PRN ×2 (18:44)
[2017-05-05 18:58] LABS: THYROID STIMULATING HORMONE 5.89 uIU/mL (0.47-4.68)
[2017-05-05] MEDS ORDERED: CEFTRIAXONE 1 GM/D5W RTU 1 GM/50 ML RTUPB IV ONE (19:00)
[2017-05-05] MEDS: ATORVASTATIN CALCIUM 80 MG TABLET PO SCH (21:01)
--- NOTE | 2017-05-05 21:24 | PDOC H&P ---
History of Present Illness Admission Date/PCP: 05/05/17 02:09 VU GUZMAN MD History of Present Illness: BERONICA YEUNG is a 42 year old female, Patient is well-known to me she is a relatively young female with history of combined chronic systolic and diastolic heart failure, nephrotic syndrome, type 2 diabetes mellitus she presented to the emergency room with progressive shortness of breath. She called me last week in the office that she was symptomatic with shortness of breath at the time she was requesting to be admitted directly into the hospital , she is on camelia doses of furosemide, she stated that despite the furosemide she is retaining a lot of fluid in the abdomen and the extremities she was very short of breath with orthopnea, PND all consistent with acute decompensated chronic systolic heart failure. She was supposed to be admitted directly from home and I made arrangements to admit directly into the hospital but she did not show up she told me today that a family member and that is why she did not come in for admission she came in today very symptomatic with tremendous anasarca affecting the abdomen and the lower extremities. I did a CT of her chest it showed a large right pleural effusion with right middle lobe pneumonia. Past Medical History Cardiac Medical History: Reports: Congestive Heart Failure - Chronic systolic and diastolic heart failure, Coronary Artery Disease, Myocardial Infarction, Hypertension Endocrine Medical History: Reports: Diabetes Mellitus Type 2 Renal/ Medical History: Reports: Chronic Kidney Disease, Other - Nephrotic syndrome GI Medical History: Reports: Gastroesophageal Reflux Disease Psychiatric Medical History: Reports: Depression Past Surgical History Past Surgical History: Reports: Cardiac Catheterization - stent x1, Coronary Stent, Pacemaker - AICD Social History Lives with: Family Smoking Status: Never Smoker Frequency of Alcohol Use: None Hx Recreational Drug Use: No Drugs: None Hx Prescription Drug Abuse: No - Advance Directive Resuscitation Status: Full Code Family History Family History: Reviewed & Not Pertinent, Hypertension Parental Family History Reviewed: Yes Children Family History Reviewed: Yes Sibling(s) Family History Reviewed.: Yes Medication/Allergy Home Medications: Allopurinol [Zyloprim 100 mg Tablet] 100 mg PO DAILY 11/25/16 Aspirin [Aspirin 81 mg Chewable Tablet] 81 mg PO DAILY 11/25/16 Docusate Sodium [Colace 100 mg Capsule] 100 mg PO BIDP PRN 11/25/16 Furosemide [Lasix] 160 mg PO Q12 11/25/16 Omeprazole 40 mg PO DAILY 11/25/16 Sacubitril/Valsartan [Entresto 24 mg-26 mg Tablet] 1 tab PO Q12 11/25/16 Cholecalciferol (Vitamin D3) [Vitamin D3] 4,000 unit PO DAILY 05/04/17 Diphenhydramine HCl [Benadryl 25 mg Capsule] 25 mg PO Q4HP PRN 05/04/17 Medroxyprogesterone Acetate 10 mg PO DAILY 05/04/17 Ranitidine HCl 150 mg PO BID 05/04/17 Allergies/Adverse Reactions: hydrocodone bitartrate [From Vicodin] Allergy (Verified 05/04/17 22:08) Hives hydromorphone HCl [From Dilaudid] Allergy (Verified 05/04/17 22:08) Hives levofloxacin [From Levaquin] Allergy (Verified 05/04/17 22:08) Hives oxycodone HCl [From Percocet] Allergy (Verified 05/04/17 22:08) Hives tramadol [Tramadol] Allergy (Verified 05/04/17 22:08) Hives Review of Systems Constitutional: PRESENT: anorexia Eyes: ABSENT: visual disturbances Ears: ABSENT: hearing changes Cardiovascular: PRESENT: dyspnea on exertion, edema Respiratory: PRESENT: cough, dyspnea Gastrointestinal: PRESENT: bloating, heartburn Genitourinary: ABSENT: as per HPI, difficulty urinating, dysuria, hematuria, nocturia, other Musculoskeletal: ABSENT: joint swelling Integumentary: ABSENT: rash, wounds Neurological: PRESENT: abnormal gait, paresthesias Psychiatric: ABSENT: anxiety, depression, homidical ideation, suicidal ideation Endocrine: ABSENT: cold intolerance, heat intolerance, menstrual abnormalities, polydipsia, polyuria Hematologic/Lymphatic: ABSENT: easy bleeding, easy bruising, lymphadenopathy Physical Exam Vital Signs: Temp Pulse Resp BP Pulse Ox 98.4 F 75 20 135/85 H 96 05/05/17 19:46 05/05/17 19:46 05/05/17 19:46 05/05/17 19:46 05/05/17 19:46 Intake & Output 05/04/17 05/05/17 05/06/17 06:59 06:59 06:59 Intake Total 245 247 Output Total 900 600 Balance -655 -353 Weight 117.9 kg General appearance: PRESENT: mild distress Head exam: PRESENT: atraumatic, normocephalic Eye exam: PRESENT: conjunctiva pink, EOMI, PERRLA Respiratory exam: PRESENT: rales, rhonchi Cardiovascular exam: PRESENT: +S1, +S2 Vascular exam: PRESENT: normal capillary refill GI/Abdominal exam: PRESENT: ascites, normal bowel sounds, soft, other - Abdominal wall edema Rectal exam: PRESENT: deferred Neurological exam: PRESENT: alert, CN II-XII grossly intact Psychiatric exam: PRESENT: appropriate affect, normal mood Skin exam: PRESENT: dry, intact, warm Results Laboratory Results: 05/05/17 04:33 05/05/17 04:33 05/05/17 05/05/17 05/05/17 04:33 04:33 17:30 WBC 5.2 RBC 4.79 Hgb 13.5 Hct 41.7 MCV 87 MCH 28.2 MCHC 32.4 RDW 19.3 H Plt Count 164 Sodium 139.2 Potassium 3.9 Chloride 110 H Carbon Dioxide 20 L Anion Gap 9 BUN 55 H Creatinine 2.29 H Est GFR ( Amer) 28 L Est GFR (Non-Af Amer) 23 L Glucose 101 Calcium 7.9 L Magnesium 1.9 TSH Free T4 05/05/17 17:30 WBC RBC Hgb Hct MCV MCH MCHC RDW Plt Count Sodium Potassium Chloride Carbon Dioxide Anion Gap BUN Creatinine Est GFR ( Amer) Est GFR (Non-Af Amer) Glucose Calcium Magnesium TSH 5.89 H Free T4 1.47 05/05/17 05/05/17 17:30 17:30 Creatine Kinase 448 H CK-MB (CK-2) 5.47 H Troponin I 0.033 Impressions: Chest X-Ray 05/04/17 20:52 IMPRESSION: Patchy airspace consolidation in the right lung base most consistent with a pneumonic infiltrate. I cannot exclude a small associated pleural effusion. Other findings as noted above Chest CT 05/05/17 00:00 IMPRESSION: Moderate right pleural effusion. Right middle lobe infiltrate consistent with pneumonia. Diffuse subcutaneous edema. Assessment & Plan - Diagnosis (1) Acute systolic heart failure Is this a current diagnosis for this admission?: YesPlan: She has acute systolic heart failure with anasarca, she be treated with Lasix infusion 2D echo ordered (2) Pneumonia Qualifiers: Pneumonia type: due to unspecified organism Laterality: right Lung location: middle lobe of lung Qualified Code(s): J18.1 - Lobar pneumonia , unspecified organism Is this a current diagnosis for this admission?: YesPlan: Patient CT chest without contrast showed moderate right-sided pleural effusion. There is right middle lobe airspace disease most consistent with pneumonia in the left lung is clear, she be treated with IV azithromycin and Rocephin, thoracentesis ordered
[2017-05-05] MEDS ORDERED: HEPARIN SOD (PORCINE) 5,000 UNIT/ML 1 ML SYRINGE SUBCUT SCH (22:00)
[2017-05-05] MEDS ORDERED: AZITHROMYCIN 500 MG in DEXTROSE 5%-WATER 250 ML IV SCH (22:00)
[2017-05-05 23:58] LABS: CREATINE KINASE MB 4.76 ng/mL (<4.55); TROPONIN I 0.03 ng/mL
[2017-05-06 05:36] LABS: HEMATOCRIT 39.5 % (36.0-47.0); HEMOGLOBIN 13.1 g/dL (12.0-15.5); HGB HCT DIFFERENCE -0.2; MEAN CORPUSCULAR HEMOGLOBIN 28.3 pg (27.0-33.4); MEAN CORPUSCULAR HGB CONC 33.1 g/dL (32.0-36.0); MEAN CORPUSCULAR VOLUME 86 fl (80-97); RED BLOOD COUNT 4.62 10^6/uL (3.72-5.28); RED CELL DISTRIBUTION WIDTH 19.6 % (11.5-14.0); WHITE BLOOD COUNT 4.3 10^3/uL (4.0-10.5)
[2017-05-06 05:55] LABS: PROTHROMBIN TIME 14.8 SEC (11.4-15.4)
[2017-05-06 06:01] LABS: BASOPHILS % (MANUAL) 0 % (0-2); EOSINOPHILS % (MANUAL) 0 % (0-6); LYMPHOCYTES % (MANUAL) 12 % (13-45); TOTAL CELLS COUNTED 100
[2017-05-06 06:06] LABS: ALANINE AMINOTRANSFERASE 25 U/L (9-52); ALBUMIN 2.6 g/dL (3.5-5.0); ALKALINE PHOSPHATASE 155 U/L (38-126); ANION GAP 9 (5-19); ASPARTATE AMINO TRANSFERASE 26 U/L (14-36); BILIRUBIN,DIRECT 0.4 mg/dL (0.0-0.4); BILIRUBIN,TOTAL 0.7 mg/dL (0.2-1.3); BLOOD UREA NITROGEN 56 mg/dL (7-20); CALCIUM 7.8 mg/dL (8.4-10.2); CARBON DIOXIDE 21 mmol/L (22-30); CHLORIDE 110 mmol/L (98-107); CHOLESTEROL 115.07 mg/dL (0-200); CREATINE KINASE 448 U/L (30-135); CREATININE RESULT 2.37 mg/dL (0.52-1.25); Direct HDL 38 mg/dL (>40); GLUCOSE 94 mg/dL (75-110); POTASSIUM 3.6 mmol/L (3.6-5.0); SODIUM 140.1 mmol/L (137-145); TRIGLYCERIDES 57 mg/dL (<150)
[2017-05-06 06:07] LABS: ANISOCYTOSIS 2+; BURR CELLS 1+; OVALOCYTES 1+; POIKILOCYTOSIS 1+; POLYCHROMASIA SLIGHT; TARGET CELLS SLIGHT; TEAR DROP CELLS SLIGHT; TOXIC GRANULATION SLIGHT; TOXIC VACUOLATION PRESENT
[2017-05-06 06:11] LABS: CREATINE KINASE MB 4.96 ng/mL (<4.55); TROPONIN I 0.03 ng/mL
[2017-05-06 06:17] LABS: DIRECT LDL 62 mg/dL (<100)
[2017-05-06] MEDS: NORMAL SALINE 250 ML with FUROSEMIDE 250 MG IV PRN ×4 (07:25→18:26)
--- NOTE | 2017-05-06 10:35 | RADIOLOGY REPORT (SQ) ---
EXAM DESCRIPTION: CHEST SINGLE VIEW COMPLETED DATE/TIME: 05/06/2017 10:13 am REASON FOR STUDY: S/P RT THORACENTESIS COMPARISON: 07/06/2016 EXAM PARAMETERS: NUMBER OF VIEWS: 1. TECHNIQUE: Single frontal radiographic view of the chest acquired. RADIATION DOSE: NA LIMITATIONS: None. FINDINGS: LUNGS AND PLEURA: There is mild pulmonary vascular congestion. No infiltrates or effusion s are seen. There is no pneumothorax MEDIASTINUM AND HILAR STRUCTURES: No masses. Contour normal. HEART AND VASCULAR STRUCTURES: Cardiomegaly. Pulmonary vascular congestion but no wang pulmonary ed ralph. BONES: No acute findings. HARDWARE: Pacemaker/ defibrillator. OTHER: No other significant finding. IMPRESSION: Cardiomegaly with pulmonary vascular congestion but no wang CHF. There is no pneumotho rax. TECHNICAL DOCUMENTATION: JOB ID: [id number]
[2017-05-06] MEDS: CHOLECALCIFEROL (D3) 1,000 UNIT TABLET PO SCH (10:49)
[2017-05-06] MEDS: FAMOTIDINE 20 MG TABLET PO SCH ×2 (10:50→22:09)
[2017-05-06] MEDS: CARVEDILOL 12.5 MG TABLET PO SCH ×2 (10:51→22:11)
[2017-05-06] MEDS: ALLOPURINOL 100 MG TABLET PO SCH (10:52)
[2017-05-06] MEDS: MEDROXYPROGESTERONE ACET 10 MG TABLET PO SCH (10:52)
[2017-05-06] MEDS: LANSOPRAZOLE 30 MG TAB.RAP.DR PO SCH (10:52)
[2017-05-06] MEDS: SACUBITRIL/VALSARTAN 24 MG/26 MG TABLET PO SCH ×2 (10:52→22:12)
--- NOTE | 2017-05-06 10:57 | RADIOLOGY REPORT (SQ) ---
EXAM DESCRIPTION: U/S THORACENTESIS WITH IMAGING COMPLETED DATE/TIME: 05/06/2017 10:24 am REASON FOR STUDY: rt pleural effusion COMPARISON: Next CT chest without contrast 05/05/2017, AP chest 05/04/2017, CT abdomen pelvis 11/25/2016 LIMITATIONS: None. PROCEDURE: Procedure, risks, benefit, and alternative explained to patient who then gave written con sent. The posterior right chest wall was marked using ultrasound guidance. A time-out was called fo r correct marking verification. Chest prepped and draped using sterile technique. Local anesthesia a chieved using 5.5 ml of 1% lidocaine injection. A 6fr Safe-T- Centesis set was introduced into the r ight posterior pleural space. Fluid was aspirated. The catheter was removed and the entry site was covered with sterile bandage. No immediate complications noted. Specimens were sent to the lab for t esting as per the attending physician. Images acquired during the procedure were stored on PACS. FINDINGS: ENTRY SITE: Right posterior pleural space FLUID VOLUME: 600 mL of clear straw-colored fluid. FLUID ANALYSIS: Yes, specimens were sent to the lab for testing as per the attending physician OTHER: Post procedure chest film dictated separately, demonstrates no immediate postprocedure pneumot horax IMPRESSION: SUCCESSFUL THORACENTESIS USING ULTRASOUND GUIDANCE. COMMENT: Patient medication list reviewed: Yes- Quality ID# [id number]:Eligible professional attests to doc umenting in the medical record they obtained, updated, or reviewed the patient's current medications. Quality ID #[id number]: Final reports for procedures using fluoroscopy that document radiation exposure celi hank, or exposure time and number of fluorographic images (if radiation exposure indices are not avail able) TECHNICAL DOCUMENTATION: JOB ID: [id number] [employer]- All Rights Reserved
[2017-05-06 12:37] LABS: FLUID APPEARANCE HAZY; FLUID RBC AVERAGE 337.5; FLUID RBC DILUENT USED SALINE; FLUID RBC DILUTION FACTOR 2; FLUID RBC SIDE 1 345; FLUID RBC SIDE 2 330; FLUID TYPE PLEURAL
[2017-05-06 12:38] LABS: TOTAL RBC SQUARES COUNTED FLD 25
--- NOTE | 2017-05-06 13:15 | RADIOLOGY REPORT (SQ) ---
EXAM DESCRIPTION: CHEST SINGLE VIEW COMPLETED DATE/TIME: 05/06/2017 12:36 pm REASON FOR STUDY: 2 HOURS S/P RT THORACENTESIS COMPARISON: AP chest 05/06/2017, [address] chest 05/05/2017 EXAM PARAMETERS: NUMBER OF VIEWS: One view. TECHNIQUE: Single frontal radiographic view of the chest acquired. RADIATION DOSE: NA LIMITATIONS: None. FINDINGS: LUNGS AND PLEURA: No pneumothorax 2 hours post right thoracentesis. No focal infiltrates. No residual pleural effusion. MEDIASTINUM AND HILAR STRUCTURES: No masses. Contour normal. HEART AND VASCULAR STRUCTURES: Stable market cardiomegaly and unchanged left-sided dual lead pacemake r. BONES: No acute findings. HARDWARE: Pacemaker unchanged OTHER: No other significant finding. IMPRESSION: No pneumothorax 2 hours post right thoracentesis. TECHNICAL DOCUMENTATION: JOB ID: [id number]
--- NOTE | 2017-05-06 14:07 | Physician Advisory Note ---
Physician Advisor ProgressNote .: Pursuant to the plan for [facility], I have reviewed the medical record for this patient. Physician Advisor Statement: Please consider documentin. PNA - the most likely causative organism - (gram +? gram neg? ...) 2. ? - "CKD stage 4" (GFR 20's, both now & 2016- at hospital) 3. ?- "Acute Metabolic Acidosis, suspect due to ____" (CKD?, acute infxn? ...) Thanks! CK
--- NOTE | 2017-05-06 14:46 | XCELERA REPORT ---
[address] [address] Transthoracic Echocardiogram Report Name: BERONICA YEUNG Age: 42 yrs Gender: Female : 1975 Patient Status: Inpatient Patient Location: [id number] Study Date: 05/06/2017 11:00 AM Height: 68 in Weight: 215 lb BSA: 2.1 m2 Procedure: A complete two-dimensional transthoracic echocardiogram was performed (2D, M-mode, spectral and color flow Doppler). The study was technically difficult with many images being suboptimal in quality. Reason For Study: chf Ordering Physician: VU GUZMAN Performed By: Jolanta Borden Interpretation Summary The Ejection Fraction estimate is 25-30% Left ventricular systolic function is severely reduced. There is moderate concentric left ventricular hypertrophy. The left ventricle is mildly dilated. Doppler measurements suggest reversible restrictive left ventricular relaxation, which is associated with grade III/IV or moderate diastolic dysfunction There is severe global hypokinesis of the left ventricle. The right ventricle is mildly dilated. The right ventricular systolic function is moderately reduced. The right atrium is mildly dilated. The left atrium is moderately dilated. There is a mild to moderate amount of mitral regurgitation There is no mitral valve stenosis. No aortic regurgitation is present. There is no aortic valve stenosis There is a mild amount of tricuspid regurgitation Right ventricular systolic pressure is estimated to be elevated at 50- 60mmHg. There is moderate pulmonary hypertension by echo The aortic root is not well visualized but is probably normal size. The inferior vena cava appeared dilated and decreased < 50% with respiration (RAP 15-20 mmHg) There is no pericardial effusion. MMode/2D Measurements \T\ Calculations RVDd: 4.2 cm LVIDd: 6.3 cm FS: 13.9 % Ao root diam: IVSd: 1.3 cm LVIDs: 5.4 cm EDV(Teich): 2.8 cm LVPWd: 1.2 cm 199.4 ml Ao root area: ESV(Teich): 141.5 ml 6.0 cm2 EF(Teich): 29.0 % LA dimension: 5.1 cm LVLd ap4: 8.9 cm SV(MOD-sp4): EDV(MOD-sp4): 56.0 ml 200.0 ml LVLs ap4: 8.7 cm ESV(MOD-sp4): 144.0 ml EF(MOD-sp4): 28.0 % Doppler Measurements \T\ Calculations MV E max summer: MV P1/2t max summer: Ao V2 max: LV V1 max P.0 cm/sec 112.5 cm/sec 103.4 cm/sec 2.8 mmHg MV A max summer: MV P1/2t: 44.9 msec Ao max PG: LV V1 max: 104.6 cm/sec MVA(P1/2t): 4.9 cm2 4.3 mmHg 84.4 cm/sec MV E/A: 1.1 MV dec slope: 733.5 cm/sec2 PA V2 max: PI end-d summer: TR max summer: 63.7 cm/sec 194.1 cm/sec 342.3 cm/sec PA max P.6 mmHg TR max P.0 mmHg Left Ventricle The left ventricle is mildly dilated. There is moderate concentric left ventricular hypertrophy. Left ventricular systolic function is severely reduced. The Ejection Fraction estimate is 25-30%. Doppler measurements suggest reversible restrictive left ventricular relaxation, which is associated with grade III/IV or moderate diastolic dysfunction. There is severe global hypokinesis of the left ventricle. Right Ventricle The right ventricle is mildly dilated. The right ventricular systolic function is moderately reduced. Atria The right atrium is mildly dilated. The left atrium is moderately dilated. Mitral Valve The mitral valve leaflets are sclerotic, but show no functional abnormalities. There is no mitral valve stenosis. There is a mild to moderate amount of mitral regurgitation. Aortic Valve The aortic valve is grossly normal. There is no aortic valve stenosis. No aortic regurgitation is present. Tricuspid Valve The tricuspid valve is not well visualized, but is grossly normal. There is no tricuspid stenosis. There is a mild amount of tricuspid regurgitation. Right ventricular systolic pressure is estimated to be elevated at 50- 60mmHg. There is moderate pulmonary hypertension by echo. Pulmonic Valve The pulmonic valve is not well visualized. Great Vessels The aortic root is not well visualized but is probably normal size. The inferior vena cava appeared dilated and decreased < 50% with respiration (RAP 15-20 mmHg). Effusions There is no pericardial effusion. : VU GUZMAN > Megan Dozier
--- NOTE | 2017-05-06 17:25 | PDOC PROGRESS REPORT ---
Subjective Progress Note for:: 05/06/17 Subjective:: Patient was admitted yesterday because of acute systolic and diastolic heart failure, pneumonia with parapneumonic effusion. She had thoracentesis done today for 600 cc of fluid was collected. He was seen by the bedside. She has tremendous abdominal edema and ascites. We will request for abdominal paracentesis to drain the ascites with possible Physical Exam Vital Signs: Temp Pulse Resp BP Pulse Ox 98.0 F 72 20 136/89 H 99 05/06/17 15:31 05/06/17 15:31 05/06/17 15:31 05/06/17 15:31 05/06/17 15:31 Intake & Output 05/05/17 05/06/17 05/07/17 06:59 06:59 06:59 Intake Total 245 1171 0 Output Total 900 1700 950 Balance -655 -529 -950 Weight 96 kg 96 kg General appearance: PRESENT: mild distress Eye exam: PRESENT: PERRLA Respiratory exam: PRESENT: crackles, rales Cardiovascular exam: PRESENT: +S1, +S2, systolic murmur GI/Abdominal exam: PRESENT: distended Extremities exam: PRESENT: pedal edema Neurological exam: PRESENT: alert Results Laboratory Results: 05/06/17 05:23 05/06/17 05:23 05/05/17 05/05/17 05/06/17 17:30 17:30 05:23 WBC RBC Hgb Hct MCV MCH MCHC RDW Plt Count Seg Neutrophils % Lymphocytes % Monocytes % Eosinophils % Basophils % Absolute Neutrophils Absolute Lymphocytes Absolute Monocytes Absolute Eosinophils Absolute Basophils Sodium 140.1 Potassium 3.6 Chloride 110 H Carbon Dioxide 21 L Anion Gap 9 BUN 56 H Creatinine 2.37 H Est GFR ( Amer) 27 L Est GFR (Non-Af Amer) 22 L Glucose 94 Calcium 7.8 L Magnesium 1.9 Total Bilirubin 0.7 AST 26 ALT 25 Alkaline Phosphatase 155 H Total Protein 5.0 L Albumin 2.6 L Triglycerides 57 Cholesterol 115.07 LDL Cholesterol Direct 62 VLDL Cholesterol 11.0 HDL Cholesterol 38 L TSH 5.89 H Free T4 1.47 Fluid Type Fluid Source Fluid Color Fluid Appearance Fluid Viscosity Fluid WBC Fluid RBC 05/06/17 05/06/17 05:23 09:50 WBC 4.3 RBC 4.62 Hgb 13.1 Hct 39.5 MCV 86 MCH 28.3 MCHC 33.1 RDW 19.6 H Plt Count 153 Seg Neutrophils % Not Reportable Lymphocytes % Not Reportable Monocytes % Not Reportable Eosinophils % Not Reportable Basophils % Not Reportable Absolute Neutrophils Not Reportable Absolute Lymphocytes Not Reportable Absolute Monocytes Not Reportable Absolute Eosinophils Not Reportable Absolute Basophils Not Reportable Sodium Potassium Chloride Carbon Dioxide Anion Gap BUN Creatinine Est GFR ( Amer) Est GFR (Non-Af Amer) Glucose Calcium Magnesium Total Bilirubin AST ALT Alkaline Phosphatase Total Protein Albumin Triglycerides Cholesterol LDL Cholesterol Direct VLDL Cholesterol HDL Cholesterol TSH Free T4 Fluid Type PLEURAL Fluid Source Fluid Color YELLOW Fluid Appearance HAZY Fluid Viscosity LIQUID Fluid WBC 24 Fluid RBC 6750 05/05/17 05/05/17 05/05/17 17:30 17:30 23:19 Creatine Kinase 448 H 455 H CK-MB (CK-2) 5.47 H Troponin I 0.033 05/05/17 05/06/17 05/06/17 23:19 05:23 05:23 Creatine Kinase 448 H CK-MB (CK-2) 4.76 H 4.96 H Troponin I 0.030 0.030 Impressions: Chest CT 05/05/17 00:00 IMPRESSION: Moderate right pleural effusion. Right middle lobe infiltrate consistent with pneumonia. Diffuse subcutaneous edema. Chest X-Ray 05/06/17 00:00 IMPRESSION: No pneumothorax 2 hours post right thoracentesis. Thoracentesis Ultrasound 05/06/17 18:39 IMPRESSION: SUCCESSFUL THORACENTESIS USING ULTRASOUND GUIDANCE. Assessment & Plan - Diagnosis (1) Acute systolic heart failure Is this a current diagnosis for this admission?: YesPlan: 2D echocardiogram was done today, the left ventricle systolic function is severely reduced, the estimated ejection fraction is 25%, there is severe global hypokinesis of the left ventricle there is associated grade 3 diastolic dysfunction of the left ventricle (2) Pneumonia Qualifiers: Pneumonia type: due to unspecified organism Laterality: right Lung location: middle lobe of lung Qualified Code(s): J18.1 - Lobar pneumonia , unspecified organism Is this a current diagnosis for this admission?: Yes (3) Anasarca Is this a current diagnosis for this admission?: Yes (4) Bilateral lower extremity edema Is this a current diagnosis for this admission?: Yes (5) Chronic combined systolic (congestive) and diastolic (congestive) heart failure Is this a current diagnosis for this admission?: Yes (6) Nephrotic syndrome Is this a current diagnosis for this admission?: Yes (7) Chronic kidney disease, stage 4 (severe) Is this a current diagnosis for this admission?: Yes (8) Cardiorenal syndrome Qualifiers: Hypertensive chronic kidney disease stage: stage 1-4 or unspecified chronic kidney disease Heart failure presence: with heart failure Qualified Code(s): I13.0 - Hypertensive heart and chronic kidney disease with heart failure and stage 1 through stage 4 chronic kidney disease, or unspecified chronic kidney disease Is this a current diagnosis for this admission?: YesPlan: There is a complement of cardiorenal syndrome, part of the kidney failure could be from heart disease - Plan Summary Plan Summary: She will continue the furosemide infusion, IV antibiotic with intravenous azithromycin and Rocephin
[2017-05-06] MEDS: CEFTRIAXONE 1 GM/D5W RTU 1 GM/50 ML RTUPB IV SCH (18:21)
[2017-05-06] MEDS: MORPHINE SULFATE 10 MG/ML INJ IV PRN (22:08)
[2017-05-06] MEDS: ATORVASTATIN CALCIUM 80 MG TABLET PO SCH (22:09)
[2017-05-06] MEDS: DIPHENHYDRAMINE HCL 25 MG CAPSULE PO PRN (22:14)
[2017-05-07 02:26] LABS: APPEARANCE,URINE CLEAR; BILIRUBIN,URINE NEGATIVE (NEGATIVE); GLUCOSE, URINE NEGATIVE (NEGATIVE); KETONES,URINE NEGATIVE (NEGATIVE); LEUKOCYTE ESTERASE,URINE NEGATIVE (NEGATIVE); NITRITE,URINE NEGATIVE (NEGATIVE); PROTEIN,URINE NEGATIVE (NEGATIVE); URINE SPECIFIC GRAVITY 1.004; UROBILINOGEN,URINE NEGATIVE mg/dL (<2.0)
[2017-05-07 06:08] LABS: ABSOLUTE BASOPHILS # (AUTO) 0.1 10^3/uL (0.0-0.2); ABSOLUTE EOSINOPHILS # (AUTO) 0.2 10^3/uL (0.0-0.6); ABSOLUTE LYMPHOCYTES (AUTO) 0.6 10^3/uL (0.5-4.7); ABSOLUTE MONOCYTES (AUTO) 0.4 10^3/uL (0.1-1.4); ABSOLUTE NEUT (AUTO) 3.9 10^3/uL (1.7-8.2); EOSINOPHILS % (AUTO) 3.3 % (0-6); HEMATOCRIT 37.6 % (36.0-47.0); HEMOGLOBIN 12.2 g/dL (12.0-15.5); LYMPHOCYTES % (AUTO) 10.9 % (13-45); MEAN CORPUSCULAR HEMOGLOBIN 28.5 pg (27.0-33.4); MEAN CORPUSCULAR HGB CONC 32.4 g/dL (32.0-36.0); MEAN CORPUSCULAR VOLUME 88 fl (80-97); MONOCYTES % (AUTO) 7.8 % (3-13); RED BLOOD COUNT 4.28 10^6/uL (3.72-5.28); RED CELL DISTRIBUTION WIDTH 19.5 % (11.5-14.0); WHITE BLOOD COUNT 5.1 10^3/uL (4.0-10.5)
[2017-05-07] MEDS: NORMAL SALINE 250 ML with FUROSEMIDE 250 MG IV PRN ×4 (09:07→22:12)
[2017-05-07] MEDS: CARVEDILOL 12.5 MG TABLET PO SCH ×2 (09:12→22:15)
[2017-05-07] MEDS: CHOLECALCIFEROL (D3) 1,000 UNIT TABLET PO SCH (09:13)
[2017-05-07] MEDS: MEDROXYPROGESTERONE ACET 10 MG TABLET PO SCH (09:13)
[2017-05-07] MEDS: ALLOPURINOL 100 MG TABLET PO SCH (09:13)
[2017-05-07] MEDS: SACUBITRIL/VALSARTAN 24 MG/26 MG TABLET PO SCH ×2 (09:13→22:16)
[2017-05-07] MEDS: FAMOTIDINE 20 MG TABLET PO SCH ×2 (09:13→22:16)
[2017-05-07] MEDS: LANSOPRAZOLE 30 MG TAB.RAP.DR PO SCH (09:14)
--- NOTE | 2017-05-07 10:22 | RADIOLOGY REPORT (SQ) ---
EXAM DESCRIPTION: U/S ABDOMEN LIMITED W/O DOP COMPLETED DATE/TIME: 05/07/2017 9:56 am REASON FOR STUDY: ascities COMPARISON: CT abdomen pelvis 11/25/2016 CT chest 05/05/2017 Thoracentesis 05/06/2017 TECHNIQUE: Ultrasound of all 4 quadrants was performed, to search for ascites. LIMITATIONS: None. FINDINGS: No ascites. Diffuse edema in the abdominal wall. IMPRESSION: No ascites TECHNICAL DOCUMENTATION: JOB ID: [id number] [employer]- All Rights Reserved
[2017-05-07] MEDS: CEFTRIAXONE 1 GM/D5W RTU 1 GM/50 ML RTUPB IV SCH (17:00)
[2017-05-07 18:00] LABS: ALANINE AMINOTRANSFERASE 21 U/L (9-52); ALBUMIN 2.7 g/dL (3.5-5.0); ALKALINE PHOSPHATASE 154 U/L (38-126); ANION GAP 11 (5-19); ASPARTATE AMINO TRANSFERASE 24 U/L (14-36); BILIRUBIN,DIRECT 0.5 mg/dL (0.0-0.4); BILIRUBIN,TOTAL 0.6 mg/dL (0.2-1.3); BLOOD UREA NITROGEN 53 mg/dL (7-20); CARBON DIOXIDE 20 mmol/L (22-30); CHLORIDE 108 mmol/L (98-107); CREATININE RESULT 2.51 mg/dL (0.52-1.25); GLUCOSE 124 mg/dL (75-110); SODIUM 138.6 mmol/L (137-145); TOTAL PROTEIN 5.1 g/dL (6.3-8.2)
--- NOTE | 2017-05-07 18:00 | PDOC PROGRESS REPORT ---
Subjective Progress Note for:: 05/07/17 Subjective:: Patient was seen by the bedside, ultrasound of the abdomen was done did not show ascities Physical Exam Vital Signs: Temp Pulse Resp BP Pulse Ox 98.3 F 70 16 128/75 H 97 05/07/17 11:32 05/07/17 14:00 05/07/17 11:32 05/07/17 11:32 05/07/17 11:32 Intake & Output 05/06/17 05/07/17 05/08/17 06:59 06:59 06:59 Intake Total 1171 978 870 Output Total 1701 8410 1999 Balance -529 -1972 -1130 Weight 96 kg 106.6 kg General appearance: PRESENT: no acute distress Eye exam: PRESENT: PERRLA Respiratory exam: PRESENT: clear to auscultation abdi Cardiovascular exam: PRESENT: +S1, +S2 GI/Abdominal exam: PRESENT: soft Neurological exam: PRESENT: alert Results Laboratory Results: 05/07/17 05:18 05/06/17 05/06/17 05/06/17 09:50 09:50 09:50 WBC RBC Hgb Hct MCV MCH MCHC RDW Plt Count Seg Neutrophils % Lymphocytes % Monocytes % Eosinophils % Basophils % Absolute Neutrophils Absolute Lymphocytes Absolute Monocytes Absolute Eosinophils Absolute Basophils Urine Color Urine Appearance Urine pH Ur Specific [place] Urine Protein Urine Glucose (UA) Urine Ketones Urine Blood Urine Nitrite Ur Leukocyte Esterase Urine WBC (Auto) Urine RBC (Auto) Fluid Glucose 115 Fluid Total Protein Fluid LDH 65 Fluid Amylase 05/06/17 05/07/17 05/07/17 09:50 01:52 05:18 WBC 5.1 RBC 4.28 Hgb 12.2 Hct 37.6 MCV 88 MCH 28.5 MCHC 32.4 RDW 19.5 H Plt Count 150 Seg Neutrophils % 77.0 Lymphocytes % 10.9 L Monocytes % 7.8 Eosinophils % 3.3 Basophils % 1.0 Absolute Neutrophils 3.9 Absolute Lymphocytes 0.6 Absolute Monocytes 0.4 Absolute Eosinophils 0.2 Absolute Basophils 0.1 Urine Color STRAW Urine Appearance CLEAR Urine pH 6.0 Ur Specific [place] 1.004 Urine Protein NEGATIVE Urine Glucose (UA) NEGATIVE Urine Ketones NEGATIVE Urine Blood NEGATIVE Urine Nitrite NEGATIVE Ur Leukocyte Esterase NEGATIVE Urine WBC (Auto) 0 Urine RBC (Auto) 1 Fluid Glucose Fluid Total Protein 1.6 Fluid LDH Fluid Amylase 05/05/17 05/05/17 05/05/17 17:30 17:30 23:19 Creatine Kinase 448 H 455 H CK-MB (CK-2) 5.47 H Troponin I 0.033 05/05/17 05/06/17 05/06/17 23:19 05:23 05:23 Creatine Kinase 448 H CK-MB (CK-2) 4.76 H 4.96 H Troponin I 0.030 0.030 Impressions: Chest CT 05/05/17 00:00 IMPRESSION: Moderate right pleural effusion. Right middle lobe infiltrate consistent with pneumonia. Diffuse subcutaneous edema. Chest X-Ray 05/06/17 00:00 IMPRESSION: No pneumothorax 2 hours post right thoracentesis. Thoracentesis Ultrasound 05/06/17 18:39 IMPRESSION: SUCCESSFUL THORACENTESIS USING ULTRASOUND GUIDANCE. Abdomen Ultrasound 05/07/17 10:00 IMPRESSION: No ascites Assessment & Plan - Diagnosis (1) Acute systolic heart failure Is this a current diagnosis for this admission?: Yes (2) Pneumonia Qualifiers: Pneumonia type: due to unspecified organism Laterality: right Lung location: middle lobe of lung Qualified Code(s): J18.1 - Lobar pneumonia , unspecified organism Is this a current diagnosis for this admission?: Yes (3) Anasarca Is this a current diagnosis for this admission?: Yes (4) Bilateral lower extremity edema Is this a current diagnosis for this admission?: Yes (5) Chronic combined systolic (congestive) and diastolic (congestive) heart failure Is this a current diagnosis for this admission?: Yes (6) Nephrotic syndrome Is this a current diagnosis for this admission?: Yes (7) Chronic kidney disease, stage 4 (severe) Is this a current diagnosis for this admission?: Yes (8) Cardiorenal syndrome Qualifiers: Hypertensive chronic kidney disease stage: stage 1-4 or unspecified chronic kidney disease Heart failure presence: with heart failure Qualified Code(s): I13.0 - Hypertensive heart and chronic kidney disease with heart failure and stage 1 through stage 4 chronic kidney disease, or unspecified chronic kidney disease Is this a current diagnosis for this admission?: Yes - Plan Summary Plan Summary: Continue treatment
[2017-05-07] MEDS: AZITHROMYCIN 250 MG TABLET PO SCH (22:14)
[2017-05-07] MEDS: ATORVASTATIN CALCIUM 80 MG TABLET PO SCH (22:15)
[2017-05-07] MEDS: MORPHINE SULFATE 10 MG/ML INJ IV PRN (23:36)
[2017-05-07] MEDS: DIPHENHYDRAMINE HCL 25 MG CAPSULE PO PRN (23:37)
[2017-05-08 06:19] LABS: ALANINE AMINOTRANSFERASE 27 U/L (9-52); ALBUMIN 3.1 g/dL (3.5-5.0); ALKALINE PHOSPHATASE 153 U/L (38-126); ANION GAP 9 (5-19); ASPARTATE AMINO TRANSFERASE 30 U/L (14-36); BILIRUBIN,DIRECT 0.5 mg/dL (0.0-0.4); BILIRUBIN,TOTAL 0.7 mg/dL (0.2-1.3); BLOOD UREA NITROGEN 56 mg/dL (7-20); CALCIUM 8.1 mg/dL (8.4-10.2); CARBON DIOXIDE 26 mmol/L (22-30); CHLORIDE 106 mmol/L (98-107); CREATININE RESULT 2.56 mg/dL (0.52-1.25); GLUCOSE 97 mg/dL (75-110); POTASSIUM 3.6 mmol/L (3.6-5.0); SODIUM 140.7 mmol/L (137-145); TOTAL PROTEIN 5.9 g/dL (6.3-8.2)
[2017-05-08] MEDS: MEDROXYPROGESTERONE ACET 10 MG TABLET PO SCH (11:22)
[2017-05-08] MEDS: ALLOPURINOL 100 MG TABLET PO SCH (11:23)
[2017-05-08] MEDS: CARVEDILOL 12.5 MG TABLET PO SCH ×2 (11:23→22:12)
[2017-05-08] MEDS: SACUBITRIL/VALSARTAN 24 MG/26 MG TABLET PO SCH ×2 (11:23→22:12)
[2017-05-08] MEDS: LANSOPRAZOLE 30 MG TAB.RAP.DR PO SCH (11:24)
[2017-05-08] MEDS: CHOLECALCIFEROL (D3) 1,000 UNIT TABLET PO SCH (11:24)
[2017-05-08] MEDS: FAMOTIDINE 20 MG TABLET PO SCH ×2 (11:25→22:12)
[2017-05-08] MEDS: CEFTRIAXONE 1 GM/D5W RTU 1 GM/50 ML RTUPB IV SCH (17:27)
[2017-05-08] MEDS: NORMAL SALINE 250 ML with FUROSEMIDE 250 MG IV PRN ×2 (17:28)
[2017-05-08] MEDS: AZITHROMYCIN 250 MG TABLET PO SCH (22:12)
[2017-05-08] MEDS: ATORVASTATIN CALCIUM 80 MG TABLET PO SCH (22:12)
--- NOTE | 2017-05-08 22:14 | PDOC PROGRESS REPORT ---
Subjective Progress Note for:: 05/08/17 Subjective:: Patient was seen by the bedside, she is concerned about the dietary restriction of low salt, low calories, Physical Exam Vital Signs: Temp Pulse Resp BP Pulse Ox 97.4 F 70 20 120/78 96 05/08/17 20:03 05/08/17 20:03 05/08/17 20:03 05/08/17 20:03 05/08/17 20:03 Intake & Output 05/07/17 05/08/17 05/09/17 06:59 06:59 06:59 Intake Total 978 2800 1224 Output Total 2950 7400 3100 Balance -4038 -8512 -8879 Weight 106.6 kg 107.1 kg General appearance: PRESENT: no acute distress Eye exam: PRESENT: PERRLA Respiratory exam: PRESENT: clear to auscultation abdi Cardiovascular exam: PRESENT: +S1, +S2 GI/Abdominal exam: PRESENT: soft Neurological exam: PRESENT: alert Results Laboratory Results: 05/07/17 05:18 05/08/17 05:12 05/08/17 05:12 Sodium 140.7 Potassium 3.6 Chloride 106 Carbon Dioxide 26 Anion Gap 9 BUN 56 H Creatinine 2.56 H Est GFR ( Amer) 25 L Est GFR (Non-Af Amer) 21 L Glucose 97 Calcium 8.1 L Total Bilirubin 0.7 AST 30 ALT 27 Alkaline Phosphatase 153 H Total Protein 5.9 L Albumin 3.1 L 05/06/17 09:50 Pleural Fluid - Right Pleural Effusion AFB Smear Concentration - Final 05/06/17 09:50 Pleural Fluid - Right Pleural Effusion Acid Fast Bacilli Smear - Final 05/05/17 05/05/17 05/05/17 17:30 17:30 23:19 Creatine Kinase 448 H 455 H CK-MB (CK-2) 5.47 H Troponin I 0.033 05/05/17 05/06/17 05/06/17 23:19 05:23 05:23 Creatine Kinase 448 H CK-MB (CK-2) 4.76 H 4.96 H Troponin I 0.030 0.030 Impressions: Chest CT 05/05/17 00:00 IMPRESSION: Moderate right pleural effusion. Right middle lobe infiltrate consistent with pneumonia. Diffuse subcutaneous edema. Chest X-Ray 05/06/17 00:00 IMPRESSION: No pneumothorax 2 hours post right thoracentesis. Thoracentesis Ultrasound 05/06/17 18:39 IMPRESSION: SUCCESSFUL THORACENTESIS USING ULTRASOUND GUIDANCE. Abdomen Ultrasound 05/07/17 10:00 IMPRESSION: No ascites Assessment & Plan - Diagnosis (1) Acute systolic heart failure Is this a current diagnosis for this admission?: Yes (2) Pneumonia Qualifiers: Pneumonia type: due to unspecified organism Laterality: right Lung location: middle lobe of lung Qualified Code(s): J18.1 - Lobar pneumonia , unspecified organism Is this a current diagnosis for this admission?: Yes (3) Anasarca Is this a current diagnosis for this admission?: Yes (4) Bilateral lower extremity edema Is this a current diagnosis for this admission?: Yes (5) Chronic combined systolic (congestive) and diastolic (congestive) heart failure Is this a current diagnosis for this admission?: Yes (6) Nephrotic syndrome Is this a current diagnosis for this admission?: Yes (7) Chronic kidney disease, stage 4 (severe) Is this a current diagnosis for this admission?: Yes (8) Cardiorenal syndrome Qualifiers: Hypertensive chronic kidney disease stage: stage 1-4 or unspecified chronic kidney disease Heart failure presence: with heart failure Qualified Code(s): I13.0 - Hypertensive heart and chronic kidney disease with heart failure and stage 1 through stage 4 chronic kidney disease, or unspecified chronic kidney disease Is this a current diagnosis for this admission?: Yes
[2017-05-08] MEDS: DIPHENHYDRAMINE HCL 25 MG CAPSULE PO PRN (22:23)
[2017-05-08] MEDS: MORPHINE SULFATE 10 MG/ML INJ IV PRN (22:24)
[2017-05-09] MEDS: DIPHENHYDRAMINE HCL 25 MG CAPSULE PO PRN (04:30)
[2017-05-09] MEDS: MORPHINE SULFATE 10 MG/ML INJ IV PRN (04:30)
[2017-05-09] MEDS: NORMAL SALINE 250 ML with FUROSEMIDE 250 MG IV PRN ×2 (06:26)
[2017-05-09] MEDS: MEDROXYPROGESTERONE ACET 10 MG TABLET PO SCH (10:20)
[2017-05-09] MEDS: SACUBITRIL/VALSARTAN 24 MG/26 MG TABLET PO SCH (10:20)
[2017-05-09] MEDS: ALLOPURINOL 100 MG TABLET PO SCH (10:20)
[2017-05-09] MEDS: LANSOPRAZOLE 30 MG TAB.RAP.DR PO SCH (10:21)
[2017-05-09] MEDS: CARVEDILOL 12.5 MG TABLET PO SCH (10:21)
[2017-05-09] MEDS: CHOLECALCIFEROL (D3) 1,000 UNIT TABLET PO SCH (10:21)
[2017-05-09] MEDS: FAMOTIDINE 20 MG TABLET PO SCH (10:21)
--- NOTE | 2017-05-09 14:17 | PDOC DISCHARGE SUMMARY ---
General - Admit/Disc Date/PCP Admission Date/Primary Care Provider: 05/05/17 02:09 VU GUZMAN MD Discharge Date: 05/09/17 - Discharge Diagnosis (1) Acute systolic heart failure Is this a current diagnosis for this admission?: Yes (2) Pneumonia Is this a current diagnosis for this admission?: Yes (3) Anasarca Is this a current diagnosis for this admission?: Yes (4) Bilateral lower extremity edema Is this a current diagnosis for this admission?: Yes (5) Chronic combined systolic (congestive) and diastolic (congestive) heart failure Is this a current diagnosis for this admission?: Yes (6) Nephrotic syndrome Is this a current diagnosis for this admission?: Yes (7) Chronic kidney disease, stage 4 (severe) Is this a current diagnosis for this admission?: Yes (8) Cardiorenal syndrome Is this a current diagnosis for this admission?: Yes - Additional Information Resuscitation Status: Full Code Discharge Diet: Cardiac, Diabetic Discharge Activity: Activity As Tolerated, Balance Activity w/Rest, Weigh Daily Home Medications: Allopurinol [Zyloprim 100 mg Tablet] 100 mg PO DAILY 11/25/16 Aspirin [Aspirin 81 mg Chewable Tablet] 81 mg PO DAILY 11/25/16 Docusate Sodium [Colace 100 mg Capsule] 100 mg PO BIDP PRN 11/25/16 Omeprazole 40 mg PO DAILY 11/25/16 Sacubitril/Valsartan [Entresto 24 mg-26 mg Tablet] 1 tab PO Q12 11/25/16 Cholecalciferol (Vitamin D3) [Vitamin D3] 4,000 unit PO DAILY 05/04/17 Diphenhydramine HCl [Benadryl 25 mg Capsule] 25 mg PO Q4HP PRN 05/04/17 Atorvastatin Calcium [Lipitor 80 mg Tablet] 80 mg PO QHS #90 tablet 05/09/17 Azithromycin [Zithromax 250 mg Tablet] 500 mg PO QHS #10 tablet 05/09/17 Carvedilol [Coreg 12.5 mg Tablet] 25 mg PO Q12 #60 tablet 05/09/17 Furosemide [Lasix] 160 mg PO Q12 #60 05/09/17 Sacubitril/Valsartan [Entresto 97 mg-103 mg Tablet] 1 each PO BID #60 tablet 09/13 History of Present Illness History of Present Illness: BERONICA YEUNG is a 42 year old female, Patient is well-known to me she is a relatively young female with history of combined chronic systolic and diastolic heart failure, nephrotic syndrome, type 2 diabetes mellitus she presented to the emergency room with progressive shortness of breath. She called me last week in the office that she was symptomatic with shortness of breath at the time she was requesting to be admitted directly into the hospital , she is on camelia doses of furosemide, she stated that despite the furosemide she is retaining a lot of fluid in the abdomen and the extremities she was very short of breath with orthopnea, PND all consistent with acute decompensated chronic systolic heart failure. She was supposed to be admitted directly from home and I made arrangements to admit directly into the hospital but she did not show up she told me today that a family member and that is why she did not come in for admission she came in today very symptomatic with tremendous anasarca affecting the abdomen and the lower extremities. I did a CT of her chest it showed a large right pleural effusion with right middle lobe pneumonia. Hospital Course Hospital Course: Patient was admitted for the management of acute systolic heart failure, pneumonia with parapneumonic effusion. She was treated with furosemide infusion , she underwent thoracentesis because of right large pleural effusion, 700 mL of pleural fluid was collected she was empirically treated with IV antibiotic azithromycin and rocephin to cover community-acquired pathogens. There was significant improvement in symptoms. No specific pathogen was identified in the pleural fluid, the pleural fluid was consistent with exudative fluid. The dose of entresto was adjusted for maximum dose. Physical Exam Vital Signs: Temp Pulse Resp BP Pulse Ox 98.3 F 70 18 125/89 H 96 05/09/17 11:35 05/09/17 11:35 05/09/17 11:35 05/09/17 11:35 05/09/17 11:35 Intake & Output 05/08/17 05/09/17 05/10/17 06:59 06:59 06:59 Intake Total 2800 2537 437 Output Total 7400 8200 1400 Balance -4600 -5663 -963 Weight 107.1 kg 102.7 kg General appearance: PRESENT: no acute distress, well-developed, well-nourished Head exam: PRESENT: atraumatic, normocephalic Eye exam: PRESENT: PERRLA Neck exam: PRESENT: full ROM Respiratory exam: PRESENT: clear to auscultation abdi Cardiovascular exam: PRESENT: RRR, +S1, +S2 GI/Abdominal exam: PRESENT: normal bowel sounds, soft, other - The abdominal wall edema Rectal exam: PRESENT: deferred Extremities exam: PRESENT: pedal edema Neurological exam: PRESENT: alert, CN II-XII grossly intact Psychiatric exam: PRESENT: appropriate affect, normal mood Skin exam: PRESENT: dry, intact, warm Results Laboratory Results: 05/07/17 05:18 05/08/17 05:12 05/07/17 01:52 Clean Catch Midstream Urine Culture - Final NO GROWTH 2 DAYS 05/05/17 05/05/17 05/05/17 17:30 17:30 23:19 Creatine Kinase 448 H 455 H CK-MB (CK-2) 5.47 H Troponin I 0.033 05/05/17 05/06/17 05/06/17 23:19 05:23 05:23 Creatine Kinase 448 H CK-MB (CK-2) 4.76 H 4.96 H Troponin I 0.030 0.030 Impressions: Chest CT 05/05/17 00:00 IMPRESSION: Moderate right pleural effusion. Right middle lobe infiltrate consistent with pneumonia. Diffuse subcutaneous edema. Chest X-Ray 05/06/17 00:00 IMPRESSION: No pneumothorax 2 hours post right thoracentesis. Thoracentesis Ultrasound 05/06/17 18:39 IMPRESSION: SUCCESSFUL THORACENTESIS USING ULTRASOUND GUIDANCE. Abdomen Ultrasound 05/07/17 10:00 IMPRESSION: No ascites
[2017-05-09 17:03] VITALS: BP 119/69
[2017-05-09] MEDS: CEFTRIAXONE 1 GM/D5W RTU 1 GM/50 ML RTUPB IV SCH (17:33)
== END 2017-05-09 17:38 | disposition home or self-care (01) | DRG 291 ==
LOC: ER 20:40 → EH 23:58 → UNDOADMIN 23:58 → EH 05-05 00:40 → 3W 05-05 00:40 → EH 05-05 02:09 → 3W 05-05 02:09
PROVIDERS: ADMIT Internal Medicine; ATTEND Internal Medicine
PROC: 0W993ZZ Drainage of Right Pleural Cavity, Percutaneous Approach (ICD-10-PCS; principal; 2017-05-06)
DX: I13.0 Hypertensive heart and chronic kidney disease with heart failure and stage 1 through stage 4 chronic kidney disease, or unspecified chronic kidney disease (principal); I50.43 Acute on chronic combined systolic (congestive) and diastolic (congestive) heart failure; J18.1 Lobar pneumonia, unspecified organism; N18.4 Chronic kidney disease, stage 4 (severe); E11.22 Type 2 diabetes mellitus with diabetic chronic kidney disease; Z79.82 Long term (current) use of aspirin; Z79.899 Other long term (current) drug therapy; Z88.8 Allergy status to other drugs, medicaments and biological substances
CPT/HCPCS: 32555; 36415; 71010; 71250; 76705; 80048; 80053; 80061; 80076; 80162; 81001; 82150; 82550; 82553; 82945; 82962; 83036; 83615; 83735; 83880; 84157; 84439; 84443; 84484; 85025; 85027; 85610; 85730; 87015; 87070; 87075; 87086; 87101; 87116; 87205; 87206; 87252; 88305; 89050; 93005; 93010; 93306; 94660; 96374; 96375; 99285; J0456; J0696; J1940; J2270; J3010; J3490; J7050; J7060

== ENCOUNTER 2017-06-26 18:11 | Inpatient (IN) | payer MEDICARE, MEDICAID ==
[2017-06-26] MEDS ORDERED: ASPIRIN 81 MG TABLET, CHEWABLE PO ONE (20:38)
--- NOTE | 2017-06-26 21:28 | RADIOLOGY REPORT (SQ) ---
EXAM DESCRIPTION: CHEST SINGLE VIEW COMPLETED DATE/TIME: 06/26/2017 9:19 pm REASON FOR STUDY: cp COMPARISON: 05/06/2017 EXAM PARAMETERS: NUMBER OF VIEWS: One view. TECHNIQUE: Single frontal radiographic view of the chest acquired. RADIATION DOSE: NA LIMITATIONS: None. FINDINGS: LUNGS AND PLEURA: Increased moderate to large right pleural effusion with associated compr essive atelectasis/ airspace disease. MEDIASTINUM AND HILAR STRUCTURES: Stable in size and contour. HEART AND VASCULAR STRUCTURES: Heart stable in size. Normal vasculature. BONES: No acute findings. HARDWARE: Stable. OTHER: No other significant finding. IMPRESSION: INCREASED RIGHT PLEURAL EFFUSION WITH ASSOCIATED COMPRESSIVE ATELECTASIS/ AIRSPACE DISEA SE. TECHNICAL DOCUMENTATION: JOB ID: [id number]
--- NOTE | 2017-06-26 22:04 | ER Document Report ---
ED Respiratory Problem - General Chief Complaint: Shortness Of Breath Stated Complaint: CHEST PAIN Time Seen by Provider: 06/26/17 22:03 Notes: The patient is a 42-year-old female, past medical history CHF with AICD (EF 20%) , menorrhagia on Provera, presents with increasing shortness of breath over the past several days. She is taking her 80 mg Lasix twice a day as directed. She follows with Dr. Guzman and was supposed to be directly admitted. Patient is also having weeping from her left leg and noticed a small blister that formed. Patient denies fevers, abdominal pain, cough, nausea, vomiting, diarrhea, constipation, back pain, urinary symptoms or headache. TRAVEL OUTSIDE OF THE [place] IN LAST 30 DAYS: No - Related Data Allergies/Adverse Reactions: hydrocodone bitartrate [From Vicodin] Allergy (Verified 06/26/17 18:25) Hives hydromorphone HCl [From Dilaudid] Allergy (Verified 06/26/17 18:25) Hives levofloxacin [From Levaquin] Allergy (Verified 06/26/17 18:25) Hives oxycodone HCl [From Percocet] Allergy (Verified 06/26/17 18:25) Hives tramadol [Tramadol] Allergy (Verified 06/26/17 18:25) Hives Past Medical History - General Information source: Patient - Social History Smoking Status: Unknown if Ever Smoked Family History: Reviewed & Not Pertinent, Hypertension - Past Medical History Cardiac Medical History: Reports: Hx Congestive Heart Failure - Chronic systolic and diastolic heart failure, Hx Coronary Artery Disease, Hx Heart Attack, Hx Hypertension Pulmonary Medical History: Denies: Hx Tuberculosis Neurological Medical History: Denies: Hx Seizures Endocrine Medical History: Reports: Hx Diabetes Mellitus Type 2 Renal/ Medical History: Reports: Hx Renal Insufficiency. Denies: Hx Peritoneal Dialysis GI Medical History: Reports: Hx Gastroesophageal Reflux Disease Skin Medical History: Reports Hx Cellulitis - Left upper extremity cellulitis week and a half ago Psychiatric Medical History: Reports: Hx Depression Past Surgical History: Reports: Hx Cardiac Catheterization - stent x1, Hx Cardiac Surgery - pace/defib, Hx Coronary Stent, Hx Pacemaker - AICD. Denies: Hx Hysterectomy - Immunizations Hx Diphtheria, Pertussis, Tetanus Vaccination: No Hx Pneumococcal Vaccination: 06/28/13 Review of Systems - Review of Systems Notes: REVIEW OF SYSTEMS: CONSTITUTIONAL: -fevers, -chills EENT: -eye pain, -difficulty swallowing, -nasal congestion CARDIOVASCULAR: -chest pain, -syncope. RESPIRATORY: -cough, +SOB GASTROINTESTINAL: -abdominal pain, -nausea, -vomiting, -diarrhea GENITOURINARY: -dysuria, -hematuria, +vaginal bleeding MUSCULOSKELETAL: -back pain, -neck pain, +LE swelling SKIN: -rash or skin lesions. HEMATOLOGIC: -easy bruising or bleeding. LYMPHATIC: -swollen, enlarged glands. NEUROLOGICAL: -altered mental status or loss of consciousness, -headache, - neurologic symptoms PSYCHIATRIC: -anxiety, -depression. ALL OTHER SYSTEMS REVIEWED AND NEGATIVE. Physical Exam - Vital signs Vitals: Temp Pulse Resp BP Pulse Ox 98.0 F 90 2 L 156/115 H 94 06/26/17 18:18 06/26/17 18:18 06/26/17 18:18 06/26/17 18:18 06/26/17 18:18 - Notes Notes: PHYSICAL EXAMINATION: GENERAL: Tachypneic, mild respiratory distress. HEAD: Atraumatic, normocephalic. EYES: Pupils equal round and reactive to light, extraocular movements intact, sclera anicteric, conjunctiva are normal. ENT: nares patent, oropharynx clear without exudates. Moist mucous membranes. NECK: Normal range of motion, supple without lymphadenopathy LUNGS: Tachypneic, dull right lower lung sun HEART: Regular rate and rhythm without murmurs ABDOMEN: Soft, nontender, normoactive bowel sounds. No guarding, no rebound. No masses appreciated. EXTREMITIES: 2+ peripheral edema up to knees. NEUROLOGICAL: Cranial nerves grossly intact. Normal speech, normal gait. Normal sensory and motor exams. PSYCH: Normal mood, normal affect. SKIN: Weeping from B/L lower extremities. 2 cm blister on left anterior cummings. Course - Re-evaluation Re-evalutation: Pt mildly tachypneic with worsening right pleural effusion on chest x-ray and peripheral edema. Provided her with 80 mg IV Lasix to help with her peripheral edema. Pt's first troponin is 0.06 and her EKG is unchanged from prior ones. No chest pain and the troponin may be related to her CKD. No signs of infection at this time. Pt requires inpatient admission for further evaluation and treatment of her shortness of breath, CHF exacerbation and pleural effusion. 06/27/17 00:[address] Guzman and he has accepted patient for inpatient admission to telemetry. - Vital Signs Vital signs: Temp Pulse Resp BP Pulse Ox 97.5 F 93 19 166/105 H 92 06/26/17 20:40 06/26/17 20:40 06/27/17 00:18 06/27/17 00:18 06/27/17 00:00 - Laboratory Result Diagrams: 06/26/17 23:35 06/26/17 23:35 Laboratory results interpreted by me: 06/26/17 06/26/17 06/26/17 23:35 23:35 23:35 RBC 5.66 H Hgb 16.0 H Hct 48.7 H RDW 18.8 H Sodium 136.1 L Carbon Dioxide 20 L BUN 59 H Creatinine 2.45 H Est GFR ( Amer) 26 L Est GFR (Non-Af Amer) 22 L Glucose 125 H Direct Bilirubin 0.7 H Alkaline Phosphatase 207 H Creatine Kinase 497 H CK-MB (CK-2) 7.28 H NT-Pro-B Natriuret Pep 61247 H Total Protein 5.8 L Albumin 3.1 L - Diagnostic Test Radiology reviewed: Image reviewed, Reports reviewed Radiology results interpreted by me: CXR: INCREASED RIGHT PLEURAL EFFUSION WITH ASSOCIATED COMPRESSIVE ATELECTASIS/ AIRSPACE DISEASE. - EKG Interpretation by Me EKG shows normal: Sinus rhythm, [place], Intervals, QRS Complexes, ST-T Waves When compared to previous EKG there are: No significant change Discharge - Discharge Clinical Impression: Pleural effusion, Shortness of breath, Peripheral edema Condition: Stable Disposition: ADMITTED INPATIENT Admitting Provider: Jacinta Unit Admitted: Telemetry Referrals: VU GUZMAN MD [Primary Care Provider] - Follow up as needed
[2017-06-26] MEDS ORDERED: FUROSEMIDE INJ/PF 40 MG/4 ML SDV IV ONE ×2 (22:05→23:03)
--- NOTE | 2017-06-26 22:55 | EKG REPORT ---
SEVERITY:- ABNORMAL ECG - SINUS RHYTHM LOW VOLTAGE IN FRONTAL LEADS NONSPECIFIC T ABNORMALITIES, LATERAL LEADS : Confirmed by: Megan Dozier 26-Jun-2017 22:54:29
[2017-06-26] MEDS ORDERED: BACITRACIN ZINC OINTMENT 15 GM TP ONE (23:03)
[2017-06-26] MEDS ORDERED: DIPHENHYDRAMINE HCL 25 MG CAPSULE PO ONE (23:34)
[2017-06-26] MEDS ORDERED: MORPHINE SULFATE 10 MG/ML INJ IV ONE (23:35)
[2017-06-26 23:46] LABS: ABSOLUTE LYMPHOCYTES (AUTO) 0.8 10^3/uL (0.5-4.7); ABSOLUTE MONOCYTES (AUTO) 0.5 10^3/uL (0.1-1.4); ABSOLUTE NEUT (AUTO) 3.7 10^3/uL (1.7-8.2); BASOPHILS % (AUTO) 0.9 % (0-2); EOSINOPHILS % (AUTO) 0.9 % (0-6); HEMATOCRIT 48.7 % (36.0-47.0); HGB HCT DIFFERENCE -0.7; LYMPHOCYTES % (AUTO) 16.2 % (13-45); MEAN CORPUSCULAR HEMOGLOBIN 28.2 pg (27.0-33.4); MEAN CORPUSCULAR HGB CONC 32.8 g/dL (32.0-36.0); MEAN CORPUSCULAR VOLUME 86 fl (80-97); RED BLOOD COUNT 5.66 10^6/uL (3.72-5.28); RED CELL DISTRIBUTION WIDTH 18.8 % (11.5-14.0); WHITE BLOOD COUNT 5.2 10^3/uL (4.0-10.5)
[2017-06-26 23:59] LABS: ALANINE AMINOTRANSFERASE 24 U/L (9-52); ALBUMIN 3.1 g/dL (3.5-5.0); ALKALINE PHOSPHATASE 207 U/L (38-126); ANION GAP 11 (5-19); ASPARTATE AMINO TRANSFERASE 32 U/L (14-36); BILIRUBIN,DIRECT 0.7 mg/dL (0.0-0.4); BILIRUBIN,TOTAL 1.2 mg/dL (0.2-1.3); BLOOD UREA NITROGEN 59 mg/dL (7-20); CALCIUM 9.3 mg/dL (8.4-10.2); CARBON DIOXIDE 20 mmol/L (22-30); CHLORIDE 105 mmol/L (98-107); CREATINE KINASE 497 U/L (30-135); CREATININE RESULT 2.45 mg/dL (0.52-1.25); GLUCOSE 125 mg/dL (75-110); POTASSIUM 3.9 mmol/L (3.6-5.0); SODIUM 136.1 mmol/L (137-145); TOTAL PROTEIN 5.8 g/dL (6.3-8.2)
[2017-06-27 00:11] LABS: CREATINE KINASE MB 7.28 ng/mL (<4.55)
[2017-06-27 00:37] LABS: TROPONIN I 0.068 ng/mL
[2017-06-27 02:10] LABS: PROTHROMBIN TIME 14.4 SEC (11.4-15.4)
[2017-06-27] MEDS ORDERED: FUROSEMIDE INJ/PF 100 MG/10 ML SDV ONE (02:23)
[2017-06-27] MEDS: NORMAL SALINE 250 ML with FUROSEMIDE 250 MG IV PRN ×2 (02:45)
[2017-06-27 03:16] LABS: AMORPHOUS SEDIMENT,URINE TRACE /HPF; APPEARANCE,URINE SLIGHTLY-CLOUDY; BILIRUBIN,URINE NEGATIVE (NEGATIVE); GLUCOSE, URINE NEGATIVE (NEGATIVE); KETONES,URINE NEGATIVE (NEGATIVE); LEUKOCYTE ESTERASE,URINE NEGATIVE (NEGATIVE); NITRITE,URINE NEGATIVE (NEGATIVE); PROTEIN,URINE >=500 mg/dL (NEGATIVE); URINE SPECIFIC GRAVITY 1.009; UROBILINOGEN,URINE NEGATIVE mg/dL (<2.0)
[2017-06-27 03:27] LABS: THYROID STIMULATING HORMONE 11.2 uIU/mL (0.47-4.68)
[2017-06-27] MEDS: HEPARIN SOD (PORCINE) 5,000 UNIT/ML 1 ML SYRINGE SUBCUT SCH ×3 (05:36→21:15)
[2017-06-27 06:06] LABS: CREATINE KINASE MB 6.68 ng/mL (<4.55); TROPONIN I 0.071 ng/mL
[2017-06-27] MEDS ORDERED: DOCUSATE SODIUM 100 MG CAPSULE PO PRN (09:05)
[2017-06-27] MEDS: ACETAMINOPHEN WITH CODEINE #3 TABLET PO SCH ×2 (09:38→17:15)
[2017-06-27] MEDS ORDERED: SACUBITRIL/VALSARTAN 97 MG/103 MG TABLET PO SCH (10:00)
[2017-06-27] MEDS ORDERED: (PENDING PHARMACY ID) (Cholecalciferol (Vitamin D3) [Vitamin D3] 4,000 UNIT) PO SCH (10:00)
[2017-06-27] MEDS: CHOLECALCIFEROL (D3) 1,000 UNIT TABLET PO SCH (10:58)
[2017-06-27] MEDS: CARVEDILOL 12.5 MG TABLET PO SCH ×2 (10:58→21:14)
[2017-06-27] MEDS: ALLOPURINOL 100 MG TABLET PO SCH (10:59)
[2017-06-27] MEDS: LANSOPRAZOLE 30 MG TAB.RAP.DR PO SCH (10:59)
[2017-06-27] MEDS: ASPIRIN 81 MG TABLET, CHEWABLE PO SCH (10:59)
[2017-06-27] MEDS: LUBIPROSTONE 24 MCG CAPSULE PO SCH ×2 (11:00→17:14)
[2017-06-27] MEDS: MEDROXYPROGESTERONE ACET 10 MG TABLET PO SCH (11:00)
[2017-06-27] MEDS: SACUBITRIL/VALSARTAN 97 MG/103 MG TABLET PO SCH ×2 (11:01→21:14)
[2017-06-27 12:41] LABS: CREATINE KINASE MB 7.47 ng/mL (<4.55); TROPONIN I 0.073 ng/mL
--- NOTE | 2017-06-27 14:22 | PDOC H&P ---
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 She was recently discharged from this hospital on 05/05/2017 at a time she was admitted for decompensated chronic diastolic and diastolic heart failure, she was treated with intravenous furosemide infusion. She could emergency room because of worsening shortness of breath, increasing lower extremity edema, persistent vaginal bleeding despite being on Provera. She also recently started having persistent vaginal bleeding, she was seen by abrasive grinder she was assessed not to be a good candidate for surgery because of her cardiomyopathy and multiple comorbid conditions. She was given Provera but despite the hormonal treatment she continues to bleed. She was seen and evaluated in the emergency room chest x- ray was done that showed increasing pleural effusion, the management physician wants her admitted into the hospital. The last time she was in the hospital she had a 2D echo done that was on 05/06/2017, it showed a dilated left ventricle severely depressed ejection fraction estimated about 25% that was associated grade 3 diastolic dysfunction. The atria were dilated the left atrium was moderately dilated, the right atrium was mildly dilated there was also moderate pulmonary hypertension with moderate amount of mitral regurgitation. Patient is on optimal medical therapy with beta-bear,entresto Past Medical History Cardiac Medical History: Reports: Congestive Heart Failure - Chronic systolic and diastolic heart failure, Coronary Artery Disease, Myocardial Infarction, Hypertension, Other - Chronic systolic and diastolic heart failure Endocrine Medical History: Reports: Diabetes Mellitus Type 2 Renal/ Medical History: Reports: Other - Chronic kidney disease stage IV, focal segmental glomerulonephritis GI Medical History: Reports: Gastroesophageal Reflux Disease Psychiatric Medical History: Reports: Depression Past Surgical History Past Surgical History: Reports: Cardiac Catheterization - stent x1, Coronary Stent, Pacemaker - AICD Social History Smoking Status: Never Smoker Frequency of Alcohol Use: None Hx Recreational Drug Use: No Drugs: None Hx Prescription Drug Abuse: No Family History Family History: Reviewed & Not Pertinent, Hypertension Parental Family History Reviewed: Yes Children Family History Reviewed: Yes Sibling(s) Family History Reviewed.: Yes Medication/Allergy Home Medications: Allopurinol [Zyloprim 100 mg Tablet] 100 mg PO DAILY 11/25/16 Aspirin [Aspirin 81 mg Chewable Tablet] 81 mg PO DAILY 11/25/16 Docusate Sodium [Colace 100 mg Capsule] 100 mg PO BIDP PRN 11/25/16 Omeprazole 40 mg PO DAILY 11/25/16 Cholecalciferol (Vitamin D3) [Vitamin D3] 4,000 unit PO DAILY 05/04/17 Diphenhydramine HCl [Benadryl 25 mg Capsule] 25 mg PO Q4HP PRN 05/04/17 Atorvastatin Calcium [Lipitor 80 mg Tablet] 80 mg PO QHS #90 tablet 05/09/17 Carvedilol [Coreg 12.5 mg Tablet] 25 mg PO Q12 #60 tablet 05/09/17 Furosemide [Lasix] 160 mg PO Q12 #60 05/09/17 Sacubitril/Valsartan [Entresto 97 mg-103 mg Tablet] 1 each PO BID #60 tablet 09/13 Acetaminophen with Codeine [Acetaminophen-Cod #3 Tablet] 1 each PO Q8 06/27/17 Lubiprostone [Amitiza] 24 mcg PO BID 06/27/17 Medroxyprogesterone Acet [Provera 10 mg Tablet] 1 tab PO DAILY 06/27/17 Allergies/Adverse Reactions: hydrocodone bitartrate [From Vicodin] Allergy (Verified 06/26/17 18:25) Hives hydromorphone HCl [From Dilaudid] Allergy (Verified 06/26/17 18:25) Hives levofloxacin [From Levaquin] Allergy (Verified 06/26/17 18:25) Hives oxycodone HCl [From Percocet] Allergy (Verified 06/26/17 18:25) Hives tramadol [Tramadol] Allergy (Verified 06/26/17 18:25) Hives Review of Systems Constitutional: PRESENT: fatigue, headache(s), weakness Cardiovascular: PRESENT: chest pain Respiratory: PRESENT: dyspnea Gastrointestinal: PRESENT: abdominal pain Genitourinary: ABSENT: dysuria, hematuria Musculoskeletal: ABSENT: joint swelling Integumentary: ABSENT: rash, wounds Neurological: ABSENT: abnormal gait, abnormal speech, confusion, dizziness, focal weakness, syncope Psychiatric: ABSENT: anxiety, depression, homidical ideation, suicidal ideation Hematologic/Lymphatic: ABSENT: easy bleeding, easy bruising, lymphadenopathy Physical Exam Vital Signs: Temp Pulse Resp BP Pulse Ox 97.5 F 100 20 156/123 H 100 06/27/17 07:28 06/27/17 07:28 06/27/17 12:52 06/27/17 07:28 06/27/17 12:52 Intake & Output 06/26/17 06/27/17 06/28/17 06:59 06:59 06:59 Intake Total 260 200 Output Total 550 Balance -290 200 Weight 115.7 kg General appearance: PRESENT: mild distress Head exam: PRESENT: atraumatic, normocephalic Eye exam: PRESENT: PERRLA Mouth exam: PRESENT: moist, tongue midline Neck exam: PRESENT: full ROM Respiratory exam: PRESENT: crackles, decreased breath sounds Cardiovascular exam: PRESENT: RRR, +S1, +S2, systolic murmur Vascular exam: PRESENT: normal capillary refill GI/Abdominal exam: PRESENT: soft, other - Abdominal wall edema Rectal exam: PRESENT: deferred Extremities exam: PRESENT: other - Lower extremity edema Neurological exam: PRESENT: alert, CN II-XII grossly intact Psychiatric exam: PRESENT: appropriate affect, normal mood Skin exam: PRESENT: other - Open blisterOn the left leg Results Laboratory Results: 06/27/17 02:50 Urine Color YELLOW Urine Appearance SLIGHTLY-CLOUDY Urine pH 5.0 Ur Specific [place] 1.009 Urine Protein >=500 H Urine Glucose (UA) NEGATIVE Urine Ketones NEGATIVE Urine Blood SMALL H Urine Nitrite NEGATIVE Ur Leukocyte Esterase NEGATIVE Urine WBC (Auto) 0 Urine RBC (Auto) 2 06/27/17 06/27/17 06/27/17 05:25 05:25 11:57 Creatine Kinase 431 H 426 H CK-MB (CK-2) 6.68 H Troponin I 0.071 06/27/17 11:57 Creatine Kinase CK-MB (CK-2) 7.47 H Troponin I 0.073 Impressions: Chest X-Ray 06/26/17 20:38 IMPRESSION: INCREASED RIGHT PLEURAL EFFUSION WITH ASSOCIATED COMPRESSIVE ATELECTASIS/ AIRSPACE DISEASE. Assessment & Plan - Diagnosis (1) Acute combined systolic (congestive) and diastolic (congestive) heart failure Is this a current diagnosis for this admission?: Yes Plan: Patient will be continued on beta-bear and other medication for cardiomyopathy and also furosemide infusion (2) Nephrotic syndrome Is this a current diagnosis for this admission?: Yes (3) Focal segmental glomerulosclerosis Is this a current diagnosis for this admission?: Yes (4) Pulmonary hypertension Is this a current diagnosis for this admission?: Yes (5) Mitral valve regurgitation Qualifiers: Cardiac valve disease etiology: nonrheumatic Qualified Code(s): I34.0 - Nonrheumatic mitral (valve) insufficiency Is this a current diagnosis for this admission?: Yes (6) Subclinical hypothyroidism Is this a current diagnosis for this admission?: Yes Plan: TSH 11.2 free T4 1.92 this is consistent with subclinical hypothyroidism. She will be started on Synthroid, 50 mcg p.o. daily
[2017-06-27] MEDS ORDERED: LEVOTHYROXINE SODIUM 0.05 MG TABLET PO ONE (15:00)
[2017-06-27 18:22] LABS: CREATINE KINASE MB 5.63 ng/mL (<4.55); TROPONIN I 0.067 ng/mL
[2017-06-27] MEDS ORDERED: DEXTROSE 50%-WATER SYRINGE 12.5 GM/25 ML DOSE IV PRN (18:59)
[2017-06-27] MEDS ORDERED: GLUCAGON,HUMAN RECOMB 1 MG INJ IM PRN (18:59)
[2017-06-27] MEDS ORDERED: DEXTROSE 40% GEL 15 GM TUBE X 2 PO PRN (18:59)
[2017-06-27] MEDS ORDERED: DEXTROSE 50%-WATER SYRINGE 25 GM/50 ML DOSE IV PRN (18:59)
[2017-06-27] MEDS ORDERED: DEXTROSE 40% GEL 15 GM TUBE PO PRN (18:59)
[2017-06-27] MEDS ORDERED: INSULIN REG, HUMAN 100 UNIT/ML 3 ML VIAL (PYX) SUBCUT PRN (18:59)
[2017-06-27] MEDS: ATORVASTATIN CALCIUM 80 MG TABLET PO SCH (21:13)
[2017-06-28] MEDS: ACETAMINOPHEN WITH CODEINE #3 TABLET PO SCH ×3 (02:06→17:26)
[2017-06-28 05:04] LABS: ALANINE AMINOTRANSFERASE 27 U/L (9-52); ALBUMIN 2.1 g/dL (3.5-5.0); ALKALINE PHOSPHATASE 139 U/L (38-126); ANION GAP 10 (5-19); ASPARTATE AMINO TRANSFERASE 16 U/L (14-36); BILIRUBIN,DIRECT 1.1 mg/dL (0.0-0.4); BILIRUBIN,TOTAL 1.8 mg/dL (0.2-1.3); BLOOD UREA NITROGEN 64 mg/dL (7-20); CALCIUM 8.1 mg/dL (8.4-10.2); CARBON DIOXIDE 20 mmol/L (22-30); CHLORIDE 105 mmol/L (98-107); CHOLESTEROL 98.78 mg/dL (0-200); CREATININE RESULT 2.71 mg/dL (0.52-1.25); Direct HDL 24 mg/dL (>40); GLUCOSE 152 mg/dL (75-110); POTASSIUM 3.8 mmol/L (3.6-5.0); SODIUM 135.2 mmol/L (137-145); TOTAL PROTEIN 4.3 g/dL (6.3-8.2); TRIGLYCERIDES 72 mg/dL (<150)
[2017-06-28 05:16] LABS: DIRECT LDL 64 mg/dL (<100)
[2017-06-28] MEDS: HEPARIN SOD (PORCINE) 5,000 UNIT/ML 1 ML SYRINGE SUBCUT SCH ×3 (05:28→21:06)
[2017-06-28 06:29] LABS: ARTERIAL BLOOD BASE EXCESS -3.3 mmol/L; ARTERIAL BLOOD O2 SATURATION 94.3 % (94-98)
[2017-06-28] MEDS: CHOLECALCIFEROL (D3) 1,000 UNIT TABLET PO SCH (10:52)
[2017-06-28] MEDS: MEDROXYPROGESTERONE ACET 10 MG TABLET PO SCH (10:52)
[2017-06-28] MEDS: LUBIPROSTONE 24 MCG CAPSULE PO SCH ×2 (10:52→17:26)
[2017-06-28] MEDS: LEVOTHYROXINE SODIUM 0.05 MG TABLET PO SCH (10:53)
[2017-06-28] MEDS: LANSOPRAZOLE 30 MG TAB.RAP.DR PO SCH (10:54)
[2017-06-28] MEDS: ALLOPURINOL 100 MG TABLET PO SCH (10:55)
[2017-06-28] MEDS: ASPIRIN 81 MG TABLET, CHEWABLE PO SCH (10:55)
[2017-06-28] MEDS: NORMAL SALINE 250 ML with FUROSEMIDE 250 MG IV PRN ×2 (10:58)
[2017-06-28] MEDS: SACUBITRIL/VALSARTAN 97 MG/103 MG TABLET PO SCH (10:58)
[2017-06-28] MEDS: CARVEDILOL 12.5 MG TABLET PO SCH (11:11)
--- NOTE | 2017-06-28 12:13 | PDOC PROGRESS REPORT ---
Subjective Progress Note for:: 06/28/17 Subjective:: Patient was seen by the bedside she complained of generalized pain involving the abdomen, the extremity the nursing staff stated that patient I have morphine tablets on her, the son brought the medication in last night. The blood pressure is low today, the kidney function is worsening, ABG on FiO2 of 1 L, pH is 7.45 PCO2 66.4 bicarbonate is 19.3 Physical Exam Vital Signs: Temp Pulse Resp BP Pulse Ox 98.4 F 69 16 99/71 L 98 06/28/17 11:22 06/28/17 11:22 06/28/17 11:22 06/28/17 11:22 06/28/17 11:22 Intake & Output 06/27/17 06/28/17 06/29/17 06:59 06:59 06:59 Intake Total 260 676 Output Total 550 550 Balance -290 126 Weight 115.7 kg 120 kg General appearance: PRESENT: mild distress Eye exam: PRESENT: PERRLA Respiratory exam: PRESENT: clear to auscultation abdi Cardiovascular exam: PRESENT: +S1, +S2 GI/Abdominal exam: PRESENT: soft Extremities exam: PRESENT: other - edema of both lower extremity Neurological exam: PRESENT: alert, CN II-XII grossly intact Results Laboratory Results: 06/28/17 03:55 06/28/17 06/28/17 03:55 06:15 Carbonic Acid 0.85 L HCO3/H2CO3 Ratio 22:1 ABG pH 7.45 ABG pCO2 28.3 L ABG pO2 66.4 L ABG HCO3 19.3 L ABG O2 Saturation 94.3 ABG Base Excess -3.3 FiO2 1L Sodium 135.2 L Potassium 3.8 Chloride 105 Carbon Dioxide 20 L Anion Gap 10 BUN 64 H Creatinine 2.71 H Est GFR ( Amer) 23 L Est GFR (Non-Af Amer) 19 L Glucose 152 H Calcium 8.1 L Total Bilirubin 1.8 H AST 16 ALT 27 Alkaline Phosphatase 139 H Total Protein 4.3 L Albumin 2.1 L Triglycerides 72 Cholesterol 98.78 LDL Cholesterol Direct 64 VLDL Cholesterol 14.0 HDL Cholesterol 24 L 06/27/17 06/27/17 06/27/17 05:25 05:25 11:57 Creatine Kinase 431 H 426 H CK-MB (CK-2) 6.68 H Troponin I 0.071 06/27/17 06/27/17 06/27/17 11:57 17:35 17:35 Creatine Kinase 413 H CK-MB (CK-2) 7.47 H 5.63 H Troponin I 0.073 0.067 Impressions: Chest X-Ray 06/26/17 20:38 IMPRESSION: INCREASED RIGHT PLEURAL EFFUSION WITH ASSOCIATED COMPRESSIVE ATELECTASIS/ AIRSPACE DISEASE. Assessment & Plan - Diagnosis (1) Acute combined systolic (congestive) and diastolic (congestive) heart failure Is this a current diagnosis for this admission?: Yes (2) Nephrotic syndrome Is this a current diagnosis for this admission?: Yes (3) Focal segmental glomerulosclerosis Is this a current diagnosis for this admission?: Yes (4) Pulmonary hypertension Is this a current diagnosis for this admission?: Yes (5) Mitral valve regurgitation Qualifiers: Cardiac valve disease etiology: nonrheumatic Qualified Code(s): I34.0 - Nonrheumatic mitral (valve) insufficiency Is this a current diagnosis for this admission?: Yes (6) Subclinical hypothyroidism Is this a current diagnosis for this admission?: Yes (7) Hypotension Qualifiers: Hypotension type: unspecified hypotension type Qualified Code(s): I95.9 - Hypotension, unspecified Is this a current diagnosis for this admission?: Yes Plan: Start dopamine infusion
--- NOTE | 2017-06-28 12:59 | EKG REPORT ---
SEVERITY:- ABNORMAL ECG - SINUS OR ECTOPIC ATRIAL RHYTHM LOW VOLTAGE IN FRONTAL LEADS BORDERLINE T ABNORMALITIES, ANT-LAT LEADS BORDERLINE PROLONGED QT INTERVAL : Confirmed by: Megan Dozier 28-Jun-2017 12:59:27
[2017-06-28] MEDS: DOPAMINE HCL 800 MG/D5W 250 ML IV PRN (13:33)
[2017-06-28] MEDS ORDERED: INFLUENZA ADLT QUAD (36MOS+) 2017-18 VAC 0.5 ML SYR IM PRN (16:24)
--- NOTE | 2017-06-28 16:34 | PDOC CONSULTATION ---
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 She was recently discharged from this hospital on 05/05/2017 at a time she was admitted for decompensated chronic diastolic and diastolic heart failure, she was treated with intravenous furosemide infusion. She is well known to STRIPPING SHOVEL OPERATOR office at [facility] ( seen by Dr. Sultana previously) and EMBx in 2013 was benign. She follows [place] for cardiac disease and they have recommended non surgical management which I agree with in this patient due to her cardiomyopathy and multiple comorbid conditions. She was given Provera by Dr. Anderson which had previously managed her well. She reports that prior to arrival in the ER she noted 7 weeks of bleeding - which she reports as very heavy. However, per RN reports scant to mild bleeding with q12 hr shift change of depends. The last time she was in the hospital she had a 2D echo done that was on 05/06/2017, it showed a dilated left ventricle severely depressed ejection fraction estimated about 25% that was associated grade 3 diastolic dysfunction. The atria were dilated the left atrium was moderately dilated, the right atrium was mildly dilated there was also moderate pulmonary hypertension with moderate amount of mitral regurgitation. Patient is on optimal medical therapy with beta-bear, entresto. Cardiology has also been consulted on this admission and ECHO ordered. EKG in ER abnormal. She is not diuresing on the Lasix gtt as evidence by her UOP. She reports weakness and SOB - reviewed with pt weakness is not due to anemia and that vaginal bleeding is scant presently. More Likely her weakness is due heart failure. Past Medical History Gynecological Infection: No Cardiac Medical History: Reports: Congestive Heart Failure - Chronic systolic and diastolic heart failure, Coronary Artery Disease, Myocardial Infarction, Hypertension, Other - Chronic systolic and diastolic heart failure Pulmonary Medical History: Denies: Tuberculosis Neurological Medical History: Denies: Seizures Endocrine Medical History: Reports: Diabetes Mellitus Type 2 - non compliant ( pt has snacks in her suitcase etc) Renal/ Medical History: Reports: Other - Chronic kidney disease stage IV, focal segmental glomerulonephritis GI Medical History: Reports: Gastroesophageal Reflux Disease Skin Medical History: Reports: Other - weeping sores on LE due to edema Psychiatric Medical History: Reports: Depression Social History Information Source: Patient, Dr. Chung Smoking Status: Never Smoker Frequency of Alcohol Use: None Hx Recreational Drug Use: No Drugs: None Hx Prescription Drug Abuse: No Family History Family History: None, Reviewed & Not Pertinent, Hypertension Parental Family History Reviewed: No Children Family History Reviewed: NA Sibling(s) Family History Reviewed.: NA Medication/Allergy Home Medications: Allopurinol [Zyloprim 100 mg Tablet] 100 mg PO DAILY 11/25/16 Aspirin [Aspirin 81 mg Chewable Tablet] 81 mg PO DAILY 11/25/16 Docusate Sodium [Colace 100 mg Capsule] 100 mg PO BIDP PRN 11/25/16 Omeprazole 40 mg PO DAILY 11/25/16 Cholecalciferol (Vitamin D3) [Vitamin D3] 4,000 unit PO DAILY 05/04/17 Diphenhydramine HCl [Benadryl 25 mg Capsule] 25 mg PO Q4HP PRN 05/04/17 Atorvastatin Calcium [Lipitor 80 mg Tablet] 80 mg PO QHS #90 tablet 05/09/17 Carvedilol [Coreg 12.5 mg Tablet] 25 mg PO Q12 #60 tablet 05/09/17 Furosemide [Lasix] 160 mg PO Q12 #60 05/09/17 Sacubitril/Valsartan [Entresto 97 mg-103 mg Tablet] 1 each PO BID #60 tablet 09/13 Acetaminophen with Codeine [Acetaminophen-Cod #3 Tablet] 1 each PO Q8 06/27/17 Lubiprostone [Amitiza] 24 mcg PO BID 06/27/17 Medroxyprogesterone Acet [Provera 10 mg Tablet] 1 tab PO DAILY 06/27/17 Allergies/Adverse Reactions: hydrocodone bitartrate [From Vicodin] Allergy (Verified 06/26/17 18:25) Hives hydromorphone HCl [From Dilaudid] Allergy (Verified 06/26/17 18:25) Hives levofloxacin [From Levaquin] Allergy (Verified 06/26/17 18:25) Hives oxycodone HCl [From Percocet] Allergy (Verified 06/26/17 18:25) Hives tramadol [Tramadol] Allergy (Verified 06/26/17 18:25) Hives Review of Systems Constitutional: PRESENT: fatigue, weakness, weight gain. ABSENT: fever(s) Cardiovascular: PRESENT: dyspnea on exertion, edema Gastrointestinal: PRESENT: abdominal pain, nausea. ABSENT: heartburn, hematemesis, vomiting Musculoskeletal: PRESENT: back pain Integumentary: PRESENT: lesions, wounds - LE from edema Neurological: PRESENT: weakness. ABSENT: abnormal speech Psychiatric: ABSENT: anxiety, depression, homidical ideation, suicidal ideation Endocrine: PRESENT: cold intolerance, menstrual abnormalities Hematologic/Lymphatic: ABSENT: easy bleeding, easy bruising Physical Exam - Physical Exam Vital Signs: Temp Pulse Resp BP Pulse Ox 98.4 F 69 16 99/71 L 98 06/28/17 11:22 06/28/17 11:22 06/28/17 11:22 06/28/17 11:22 06/28/17 11:22 Intake & Output 06/27/17 06/28/17 06/29/17 06:59 06:59 06:59 Intake Total 260 676 50 Output Total 550 550 150 Balance -290 126 -100 Weight 115.7 kg 120 kg General appearance: PRESENT: cooperative, mild distress, obese Head exam: PRESENT: atraumatic Respiratory exam: PRESENT: crackles, decreased breath sounds, symmetrical, unlabored Cardiovascular exam: PRESENT: RRR, +S1, +S2 GI/Abdominal exam: PRESENT: normal bowel sounds, soft. ABSENT: distended, guarding, rebound, tenderness Rectal exam: PRESENT: deferred Gentrourinary exam: PRESENT: other - scant blood on sanitary product. ABSENT: lesions Extremities exam: PRESENT: +2 edema. ABSENT: calf tenderness Musculoskeletal exam: PRESENT: ambulatory, other - patient stood at bedside to assist with exam Neurological exam: PRESENT: alert, awake, oriented to person, oriented to place , oriented to time, oriented to situation, CN II-XII grossly intact. ABSENT: motor sensory deficit Psychiatric exam: PRESENT: appropriate affect Skin exam: PRESENT: skin tears. ABSENT: intact Result Laboratory Results: 06/28/17 03:55 06/28/17 06/28/17 03:55 06:15 Carbonic Acid 0.85 L HCO3/H2CO3 Ratio 22:1 ABG pH 7.45 ABG pCO2 28.3 L ABG pO2 66.4 L ABG HCO3 19.3 L ABG O2 Saturation 94.3 ABG Base Excess -3.3 FiO2 1L Sodium 135.2 L Potassium 3.8 Chloride 105 Carbon Dioxide 20 L Anion Gap 10 BUN 64 H Creatinine 2.71 H Est GFR ( Amer) 23 L Est GFR (Non-Af Amer) 19 L Glucose 152 H Calcium 8.1 L Total Bilirubin 1.8 H AST 16 ALT 27 Alkaline Phosphatase 139 H Total Protein 4.3 L Albumin 2.1 L Triglycerides 72 Cholesterol 98.78 LDL Cholesterol Direct 64 VLDL Cholesterol 14.0 HDL Cholesterol 24 L 06/27/17 06/27/17 06/27/17 05:25 05:25 11:57 Creatine Kinase 431 H 426 H CK-MB (CK-2) 6.68 H Troponin I 0.071 06/27/17 06/27/17 06/27/17 11:57 17:35 17:35 Creatine Kinase 413 H CK-MB (CK-2) 7.47 H 5.63 H Troponin I 0.073 0.067 Impressions: Chest X-Ray 06/26/17 20:38 IMPRESSION: INCREASED RIGHT PLEURAL EFFUSION WITH ASSOCIATED COMPRESSIVE ATELECTASIS/ AIRSPACE DISEASE. Status: Imported from PACS Assessment & Plan - Diagnosis (1) Dysfunctional uterine bleeding Is this a current diagnosis for this admission?: Yes Plan: Would recommend updated pelvic US for eval of endometrial lining. Pt is currently on provera 10mg po daily. Due to multiple comorbidities would not recommend surgical management - reviewed this with patient. Concern that cardiac function may be deteriorating as well - apparently ECHO ordered for this week. Due to scant nature of her bleeding would continue Provera 10mg po daily. If bleeding increases more than 1 pad/hr then would increase provera to 20mg po TID for 3 days then back down to 10mg per day for maintenance. Depending on ES noted on pelvic US may need repeat EMBx - would defer that for now until patient status improved - then will perform in office if needed. Unfortunately, this level of nuisance bleeding may be present despite treatment (and may continue for remainder of her life) and I don't think high dose provera is warranted at this time. Reviewd this with patient as well. Reviewed with her that her hb/Hct are wnl and no e/o need for transfusion. (patient thought she needed treatment for anemia and vaginal bleeding was the source of her weakness and not feeling well). Appreciate consult. If further assistance needed please re-consult. If US not done today then will have tomorrow's call MD review for you and give any further recommendations if those are warranted. REmainder of medical issues for admitting physician and other consulting providers. - Time Time Spent: 30 to 50 Minutes Critical Time spent with patient: Less than 15 minutes Medications reviewed and adjusted accordingly: Yes Anticipated discharge: Home Within: Other - when deemed stable per PCM - Inpatient Certification Based on my medical assessment, after consideration of the patient's comorbidities, presenting symptoms, or acuity I expect that the services needed warrant INPATIENT care.: Yes I certify that my determination is in accordance with my understanding of Medicare's requirements for reasonable and necessary INPATIENT services [42 CFR 412.3e].: Yes Medical Necessity: Significant Comorbidiites Make Outpatient Treatment Too Risky , Need Close Monitoring Due to Risk of Patient Decompensation, Need For Continuous Telemetry Monitoring Post Hospital Care: D/C Braille Operator Documentation
[2017-06-28] MEDS: ATORVASTATIN CALCIUM 80 MG TABLET PO SCH (21:06)
[2017-06-29] MEDS: ACETAMINOPHEN WITH CODEINE #3 TABLET PO SCH ×3 (01:10→18:56)
--- NOTE | 2017-06-29 04:32 | CONSULTATION REPORT E ---
Consultation Report NAME: BERONICA YEUNG : 1975 AGE: 42Y DATE: 06/28/2017 301 A TO: SCOT CASIANO M.D. FROM: VU GUZMAN M.D. Requesting Physician REASON FOR CONSULTATION: Congestive heart failure. HISTORY: The patient is a 42-year-old female, who has a history of hypertension, diabetes mellitus, coronary artery disease, history of ME and history stents in unknown vessels, history of AICD for LV dysfunction, history of cardiomyopathy with LV ejection fraction of 25-30% on echo of April 2017 and history of chronic kidney disease, baseline stage 3 and 4 at present. She also has history of nephrotic syndrome. She also has history of sleep apnea and wears CPAP. She also claims to have COPD. The patient states since the last 2 weeks, she has been having progressive increasing leg swelling, PND, orthopnea and significant shortness of breath, which progressed and hence, she came in to the hospital on 06/27/2017. In the emergency room, she was found to be short of breath. She had a chest x-ray that showed cardiomegaly and increasing right pleural effusion and hence has been admitted. The patient at present still complains of shortness of breath, PND, orthopnea and leg edema, but no palpitations. She claims the AICD went off last night, but I am not sure if it was interrogated. She denies any chest pain or discomfort. There are no palpitations. There are no TIA or CVA symptoms. The patient at present is on IV Lasix, but has progressively increased. Also, she is hypotensive with systolic blood pressure of 90 mmHg. PAST MEDICAL HISTORY: 1. History of ME in 2007, at which time an AICD was placed due to ejection fraction being severely reduced. 2. She also has history of hypertension, but now she is hypotensive. 3. She also has history of chronic kidney disease, stage 3 baseline, at present is stage 4. 4. She also diabetes mellitus type 2. 5. She also had an AICD placed and she states that it fired yesterday. 6. The patient also states in the last 7 weeks, she has been having vaginal bleeding and she was felt not to be a candidate due to multiple comorbidities including severe cardiomyopathy, moderately pulmonary hypertension, and other existing medical conditions. She was placed on Provera, but in spite of that she continues to bleed. SOCIAL HISTORY: The patient does not smoke. There is no history of ETOH abuse. PAST SURGICAL HISTORY: 1. Positive for cardiac catheterization. 2. Stent placement. 3. AICD placement. 4. x2. FAMILY HISTORY: Positive for coronary artery disease, history of hypertension. ALLERGIES: She is allergic to HYDROCODONE, HYDROMORPHONE, LEVAQUIN, PERCOCET, TRAMADOL. MEDICATIONS: 1. *------* 1 p.o. q.8 hours. 2. Zyloprim 100 mg per day. 3. Aspirin 81 mg p.o. daily. 4. Atorvastatin calcium 80 mg p.o. at bedtime. 5. Coreg 25 mg q.12 hours. 6. Vitamin D 4000 units p.o. daily. 7. Hypoglycemic precautions with Glutose 40% gel, 15 grams p.o. and 30 mg grams p.o. hypoglycemia. 6. Hypoglycemic precautions with dextrose 50%, 12.5 grams IV and 25 grams IV p.r.n. hypoglycemia. 7. Colace 100 mg p.o. daily. 8. Dopamine 2.5 mcg/kg per day. 9. Glucagon 1 mg p.r.n. hyperglycemia. 10. Heparin 5000 units subcutaneously q.8 hours. 11. Accu-Chek with sliding scale regular insulin. 12. Lasix at 5.5 mg per hour. 13. Prevacid 30 mg p.o. daily. 14. Levothyroxine 50 mcg p.o. daily. 15. Provera 10 mg p.o. daily. 16. Entresto 97 mg/103 mg daily. ADVANCED DIRECTIVES: Patient is a FULL CODE. Her son is the surrogate healthcare decision maker. REVIEW OF SYSTEMS: CONSTITUTIONAL: Complains of generalized fatigue and generalized pain, but no fevers, chills or rigors. She also complains of increasing lethargy. HEENT: Head: Denies headaches or head injuries. Eyes: No history of amaurosis fugax, no history of blurred vision. Ears: No history of tinnitus, no history of hearing loss. Nose: No history of hay fever, no history of nosebleeds, no history of nasal polyps. Mouth: No history of altered taste sensation, no history of ulcers in the mouth, no bleeding from the gums. Throat: No history of odynophagia or dysphagia. No history of bleeding gums or sore throats. SKIN: No history of skin rashes. No history of skin bleeding. The patient states she gets itching with morphine and this is relieved with Benadryl. NECK: No painful neck lymph nodes. No goiter. LUNGS: Denies any wheezing or cough production, does have sleep apnea and uses CPAP. There is no hemoptysis. No history of pulmonary embolism. She claims to have COPD. There is no history of asthma. There is no pleuritic chest pain. CARDIAC: History of hypertension in the past, at present the patient is hypotensive on dopamine. She has a history of CAD. History of ME. History of stents and the vessels are not known. History of AICD placement. She claims it went off last night. This needs to be checked. No atrial arrhythmias. The patient has symptoms of [id number] congestive heart failure, systolic right ventricular failure. She has leg edema. She has orthopnea. No arrhythmia and no dizziness or syncope. GASTROINTESTINAL: History of GERD present. No history of GI bleed. No history of fatty food intolerance. No history of altered bowel movements. No history of abdominal pain. GENITOURINARY: She has chronic kidney disease stage 4. She denies history of UTI. No history of pyuria, dysuria, hematuria. CASHIER PAYMENTS RECEIVED: The patient has vaginal bleeding, no controlled, even after the patient started Provera. RENAL: She has history of nephrotic syndrome. She states that she had a kidney biopsy on the left side in the past with post procedure bleeding and also a hematoma, which was painful. The results of the biopsy are not available. MUSCULOSKELETAL: Denies collagen vascular disease or arthritis. CENTRAL NERVOUS SYSTEM: No history of TIA or CVA. No history of seizures, headaches or migraines. PSYCHIATRIC: History of depression present. The patient does appear to be depressed. There is no history of anxiety. There is no suicidal ideation. VASCULAR: No history of calf tenderness or claudication. No history of DVT. HEMATOLOGIC: No history of bleeding diathesis or clotting disorder, but the patient has vaginal bleeding of unknown etiology. Patient thought not to be a candidate for surgery due to her existing severe medical illnesses. PHYSICAL EXAMINATION: GENERAL: The patient is morbidly obese. She appears to be in distress due to shortness of breath in spite of her being on a CPAP. VITAL SIGNS: She is afebrile with temperature of 98.4, pulse 67 beats per minute, blood pressure 99/71 on dopamine drip. The patient is also on Lasix. Respirations are 16 per minute, O2 saturation 95% on CPAP. HEENT: Head is atraumatic, normocephalic. Eyes: Pupils are equal, round, regular, reactive to light and accommodation. Extraocular movements are normal. There is no conjunctival pallor. There is no scleral icterus. Ears: Tympanic membranes are intact. External auditory canals are clear. Nose: There is no deviated nasal septum. There is no inflammation of the nasal mucous membranes. Mouth: Mucous membranes of the mouth are moist. Tongue is moist. There are no ulcers. There is no bleeding from the gums. Throat: There is no redness of the oropharynx. There are no exudates. SKIN: There are no skin rashes, petechia or ecchymoses. There are some skin lesions/ulcers of the legs, which have been covered with bandage. NECK: Supple. There is JVD present. Carotids are equal. There is no bruit. There is no goiter. Trachea is central. LUNGS: Show absent breath sounds on the right base and mid zone and there is evidence of left basilar rales. There are no rhonchi or wheezing. There is less air in the right lower lobe and middle lobe. HEART: S1 and S2 are heard. There is no S3 gallop. There is no S4 gallop. There is systolic murmur of MR and there is no aortic stenosis murmur. There is no aortic regurgitation murmur. There is no rub. ABDOMEN: Obese and nontender. There is no hepatosplenomegaly. Bowel sounds are well heard. There are no tender areas or masses. EXTREMITIES: Femorals are diminished. There are no femoral bruits. Leg pulses are diminished. There is 2+ to 3+ edema bilaterally. There is no cyanosis or clubbing. CENTRAL NERVOUS SYSTEM: The patient is conscious, awake, alert, slightly drowsy, but oriented x3 with no focal deficits. PSYCHIATRIC: The patient does appear to be depressed but her judgment and insight are intact. Her affect is flat. DIAGNOSTIC TEST RESULTS: The patient's chest x-ray shows increased right pleural effusion, compressive disease/atelectasis. There is no definite evidence of left heart failure, although clinically she does have it. The patient's EKG shows sinus rhythm, low voltage in frontal leads, nonspecific ST and T in lateral leads, but my interpretation shows that the patient has atrial paced and ventricular captured rhythm. The patient's 24-hour intake is 676 mL, output is 550 mL. The patient's white count is 5400, hemoglobin 16, hematocrit 45.7, platelet count 206,000. ABG shows pH of 7.45, PCO2 low at 28.3, PO2 66.4, which low. O2 saturation 94.3% earlier done on 1 liter. The patient's sodium is 135, potassium 3.8, chloride 105, CO2 20. The patient's BUN is 60 with creatinine 2.71. GFR reduced at 23, which is chronic kidney disease stage 4. Her glucose is 152, hemoglobin A1c 6.4. Liver function test shows elevated alkaline phosphatase of 139, elevated total bilirubin of 1.8 and direct bilirubin elevated at 1.1. Her albumin is 2.1, total protein 4.3. Total cholesterol 98.78, triglycerides normal at 72, LDL cholesterol good at 64, HDL cholesterol low at 24. The patient's CK-MB is elevated, but the troponin-I are indeterminate at 0.03 and 0.067. Free T4 1.92, TSH elevated at 11.20. IMPRESSION: 1. Bzlwx-ri-jtzmuek systolic and diastolic left ventricular failure. 2. Zoscw-ys-rnbqamm right systolic failure. 3. Right pleural effusion, most likely secondary to heart failure due to biventricular compromise. 4. History of hypertension, at present patient is hypotensive. 5. Hypotension, the patient's blood pressure is marginal at 99 on dopamine drip. 6. Moderate pulmonary hypertension. 7. Moderate mitral regurgitation. 8. Diabetes mellitus. 9. Chronic kidney disease, at present stage 4. 10. Hypothyroidism with TSH still high, patient on replacement. 11. Coronary artery disease with history of stents and angina. 12. Old myocardial infarction. 13. Cardiomyopathy with left ventricular ejection fraction of 25-30%. 14. Automatic implantable cardioverter-defibrillator. Patient states it fired last night and needs to be checked. 15. Nephrotic syndrome. 16. Vaginal bleed in spite of patient being on Provera. 17. Obstructive sleep apnea on CPAP. 18. Chronic obstructive pulmonary disease per history. 19. Depression. 20. Dyslipidemia. RECOMMENDATIONS: 1. Continue current medications including dopamine and Lasix drip. 2. Continue Entresto and Coreg. Would recommend starting the patient on dobutamine. Also, since the patient is started on nitrites, would try a trial of sildenafil. 3. Consider Nephrology consult. Patient's prognosis is very poor. Patient is not a candidate for transplant in view of other coexisting medical illnesses, especially renal failure, diabetes mellitus. NOTE: Of note, the patient was seen at 11 a.m. Forty minutes were spent on the patient with more than 50% of the time spent on direct patient care. Also, medications have been reviewed, adjustments and additional medications will be discussed with the attending physician. Note, the decision making in this case is of very high complexity and the patient requires *------* to keep her blood pressure borderline. Would recommend stopping the dopamine and starting the patient on norepinephrine to see if this might help since it is a good drug against RV failure. Dr. Chiu will back tomorrow. This is his patient and he will follow the patient. Discussed with the attending physician. Note, the patient had an echo in April of 2017 with 30% severe global hyperkinesis. She had moderate MR and also moderate pulmonary hypertension and right systolic pressure between 50-60%. DICTATING PHYSICIAN: SCOT CASIANO M.D. [id number] ELIZA#: [id number] ID: [id number] JOB#: [id number] ACCT: [id number] cc:SCOT CASIANO M.D. >
[2017-06-29] MEDS: HEPARIN SOD (PORCINE) 5,000 UNIT/ML 1 ML SYRINGE SUBCUT SCH ×3 (05:10→22:16)
[2017-06-29] MEDS: ASPIRIN 81 MG TABLET, CHEWABLE PO SCH (09:49)
[2017-06-29] MEDS: LEVOTHYROXINE SODIUM 0.05 MG TABLET PO SCH (09:49)
[2017-06-29] MEDS: CHOLECALCIFEROL (D3) 1,000 UNIT TABLET PO SCH (09:49)
[2017-06-29] MEDS: LANSOPRAZOLE 30 MG TAB.RAP.DR PO SCH (09:49)
[2017-06-29] MEDS: ALLOPURINOL 100 MG TABLET PO SCH (09:51)
[2017-06-29] MEDS: MEDROXYPROGESTERONE ACET 10 MG TABLET PO SCH (09:51)
[2017-06-29] MEDS: LUBIPROSTONE 24 MCG CAPSULE PO SCH ×2 (09:51→18:56)
[2017-06-29] MEDS ORDERED: SACUBITRIL/VALSARTAN 24 MG/26 MG TABLET PO ONE (11:30)
[2017-06-29] MEDS: NORMAL SALINE 250 ML with FUROSEMIDE 250 MG IV PRN ×2 (13:50)
--- NOTE | 2017-06-29 15:57 | PDOC CONSULTATION ---
Consultation Consult Date: 06/29/17 Consult reason:: FSGS, Nephrotic syndrome History of Present Illness Admission Date/PCP: 06/27/17 01:45 VU GUZMAN MD History of Present Illness: Ms. Alcira Bill is a 42 year old female admitted by her PCM for heart failure and renal/cardiac disease. She has also had vaginal bleeding for the past few weeks. Patient with chronic systolic and diastolic heart failure, chronic kidney disease stage IV nephrotic syndrome due to focal segmental glomerulosclerosis, cardiorenal syndrome. She also has long standing diabetes that is currently controlled. She was recently seen in the hospital hospital on 05/05/2017 for decompensated chronic diastolic and diastolic heart failure, she was treated with intravenous furosemide infusion. The last time she was in the hospital she had a 2D echo done that was on 05/06/2017, it showed a dilated left ventricle severely depressed ejection fraction estimated about 25 to 30% that was associated grade 3 diastolic dysfunction. The atria were dilated the left atrium was moderately dilated, the right atrium was mildly dilated there was also moderate pulmonary hypertension with moderate amount of mitral regurgitation. Since being placed in the hospital she has had a chest x-ray that showed her to be in fluid overload. She also has been receiving IV lasix at 5mg an hour and dopamine do to hypotension. Just recently the started to produce more urine. Prior to last night she was producing about 500mLs a day. Does have SOB and weakness. Denies fevers or chills. Past Medical History Cardiac Medical History: Reports: Coronary Artery Disease, Myocardial Infarction , Other - Chronic systolic and diastolic heart failure Pulmonary Medical History: Denies: Tuberculosis Neurological Medical History: Denies: Seizures Endocrine Medical History: Reports: Diabetes Mellitus Type 2 - non compliant ( pt has snacks in her suitcase etc) Renal/ Medical History: Reports: Other - Chronic kidney disease stage IV, focal segmental glomerulonephritis GI Medical History: Reports: Gastroesophageal Reflux Disease Skin Medical History: Reports: Other - weeping sores on LE due to edema Psychiatric Medical History: Reports: Depression Past Surgical History Past Surgical History: Reports: Cardiac Catheterization - stent x1, Coronary Stent, Pacemaker - AICD Denies: Hysterectomy Social History Smoking Status: Never Smoker Frequency of Alcohol Use: None Hx Recreational Drug Use: No Drugs: None Hx Prescription Drug Abuse: No Family History Parental Family History Reviewed: No Children Family History Reviewed: No Sibling(s) Family History Reviewed.: No Medication/Allergy Home Medications: RX: Allopurinol [Zyloprim 100 mg Tablet] 100 mg PO DAILY 11/25/16 RX: Aspirin [Aspirin 81 mg Chewable Tablet] 81 mg PO DAILY 11/25/16 RX: Docusate Sodium [Colace 100 mg Capsule] 100 mg PO BIDP PRN 11/25/16 RX: Omeprazole 40 mg PO DAILY 11/25/16 RX: Cholecalciferol (Vitamin D3) [Vitamin D3] 4,000 unit PO DAILY 05/04/17 RX: Diphenhydramine HCl [Benadryl 25 mg Capsule] 25 mg PO Q4HP PRN 05/04/17 RX: Atorvastatin Calcium [Lipitor 80 mg Tablet] 80 mg PO QHS #90 tablet RX: Carvedilol [Coreg 12.5 mg Tablet] 25 mg PO Q12 #60 tablet 05/09/17 RX: Furosemide [Lasix] 160 mg PO Q12 #60 05/09/17 Sacubitril/Valsartan [Entresto 97 mg-103 mg Tablet] 1 each PO BID #60 tablet 09/13 Acetaminophen with Codeine [Acetaminophen-Cod #3 Tablet] 1 each PO Q8 06/27/17 Lubiprostone [Amitiza] 24 mcg PO BID 06/27/17 Medroxyprogesterone Acet [Provera 10 mg Tablet] 1 tab PO DAILY 06/27/17 Allergies/Adverse Reactions: hydrocodone bitartrate [From Vicodin] Allergy (Verified 06/26/17 18:25) Hives hydromorphone HCl [From Dilaudid] Allergy (Verified 06/26/17 18:25) Hives levofloxacin [From Levaquin] Allergy (Verified 06/26/17 18:25) Hives oxycodone HCl [From Percocet] Allergy (Verified 06/26/17 18:25) Hives tramadol [Tramadol] Allergy (Verified 06/26/17 18:25) Hives Review of Systems Constitutional: PRESENT: fatigue, weakness. ABSENT: chills, fever(s) Eyes: ABSENT: visual disturbances Ears: ABSENT: hearing changes Nose, Mouth, and Throat: ABSENT: headache(s) Cardiovascular: PRESENT: chest pain, dyspnea on exertion, edema, orthropnea, palpitations Respiratory: PRESENT: cough, dyspnea. ABSENT: hemoptysis Gastrointestinal: ABSENT: abdominal pain, diarrhea, nausea, vomiting Genitourinary: ABSENT: difficulty urinating, dysuria Musculoskeletal: PRESENT: muscle weakness. ABSENT: deformity, joint swelling Integumentary: PRESENT: erythema, rash, wounds Neurological: PRESENT: numbness, weakness. ABSENT: dizziness Psychiatric: PRESENT: anxiety, depression Physical Exam Vital Signs: Temp Pulse Resp BP Pulse Ox 98.0 F 89 16 104/67 95 06/29/17 11:42 06/29/17 11:42 06/29/17 12:02 06/29/17 11:42 06/29/17 11:42 Intake & Output 06/28/17 06/29/17 06/30/17 06:59 06:59 06:59 Intake Total 676 1385 Output Total 550 1150 Balance 126 235 Weight 120 kg 116.5 kg General appearance: PRESENT: no acute distress, well-developed, well-nourished Head exam: PRESENT: atraumatic, normocephalic Mouth exam: PRESENT: moist, tongue midline Neck exam: PRESENT: full ROM. ABSENT: JVD, tracheal deviation Respiratory exam: PRESENT: crackles. ABSENT: accessory muscle use, chest wall tenderness, clear to auscultation abdi, wheezes Cardiovascular exam: PRESENT: +S1, +S2 GI/Abdominal exam: PRESENT: normal bowel sounds, soft. ABSENT: tenderness Extremities exam: PRESENT: pedal edema, tenderness - -shins were sore, +1 edema Musculoskeletal exam: PRESENT: tenderness. ABSENT: deformity, normal inspection Neurological exam: PRESENT: alert, awake, oriented to person, oriented to place , oriented to time, oriented to situation Psychiatric exam: PRESENT: appropriate affect, normal mood Skin exam: PRESENT: erythema - -lower legs, normal color, warm - -lower legs Results Laboratory Results: 06/28/17 03:55 06/27/17 02:50 Raza Catheter Urine Culture - Final NO GROWTH 2 DAYS 06/27/17 06/27/17 06/27/17 05:25 05:25 11:57 Creatine Kinase 431 H 426 H CK-MB (CK-2) 6.68 H Troponin I 0.071 06/27/17 06/27/17 06/27/17 11:57 17:35 17:35 Creatine Kinase 413 H CK-MB (CK-2) 7.47 H 5.63 H Troponin I 0.073 0.067 Impressions: Chest X-Ray 06/26/17 20:38 IMPRESSION: INCREASED RIGHT PLEURAL EFFUSION WITH ASSOCIATED COMPRESSIVE ATELECTASIS/ AIRSPACE DISEASE. Assessment & Plan - Diagnosis (1) Cardiogenic shock Plan: currently stable on dopamine (2) Acute combined systolic (congestive) and diastolic (congestive) heart failure Is this a current diagnosis for this admission?: Yes Plan: continue current dose of lasix. May need dialysis if patient does not start to urinate more. (3) Hypotension Qualifiers: Hypotension type: unspecified hypotension type Qualified Code(s): I95.9 - Hypotension, unspecified Is this a current diagnosis for this admission?: Yes Plan: currently controlled on dopamine. (4) Chronic kidney disease, stage 4 (severe) Plan: looks to be at baseline compared to the previous visits. Has not visited the office in over almost two years. Biopsy of the kidney was done in the hospital in November 2015. Current worsening of kidney disease is from cardiorenal syndrome with underlining FSGS and diabetes. (5) Nephrotic syndrome Is this a current diagnosis for this admission?: Yes Plan: From FSGS that is most likely due to diabetes, will review kidney biopsy results (6) Focal segmental glomerulosclerosis Is this a current diagnosis for this admission?: Yes Plan: most likely secondary to long standing diabetes. (7) Erythrocytosis Plan: hemoglobin is suddenly elevated to 16 from the 12s, will get ultrasound of the kidney to rule out renal carcinoma. (8) Pleural effusion Plan: continue current dosage of lasix, may need thoracentesis (9) Hypertension Plan: Entresto and carvedilol currently on hold - Notes Notes: Patient looks to have a poor prognosis due to severity of Heart failure and the severity of her cardiorenal syndrome. Patient was reviewed with Dr. Carlin.
[2017-06-29] MEDS: DOPAMINE HCL 800 MG/D5W 250 ML IV PRN (19:01)
--- NOTE | 2017-06-29 19:32 | PDOC PROGRESS REPORT ---
Subjective Progress Note for:: 06/29/17 Subjective:: Patient claims she is not doing well. She claims body ache all over especially left lower leg. She also feels very fatigued and tired. Currently on dobutamine drip. Patient entresto and carvedilol were stopped. We are going to start patient back on entresto at a low dose. Patient has significant renal dysfunction. Physical Exam Vital Signs: Temp Pulse Resp BP Pulse Ox 99.3 F 98 18 101/60 96 06/29/17 16:12 06/29/17 16:12 06/29/17 16:12 06/29/17 16:12 06/29/17 16:35 Intake & Output 06/28/17 06/29/17 06/30/17 06:59 06:59 06:59 Intake Total 676 1385 222 Output Total 550 1150 700 Balance 126 235 -478 Weight 120 kg 116.5 kg 116.5 kg Exam: GENERAL: well-nourished and in no acute distress. Alert and oriented x3 HEAD: Atraumatic, normocephalic. EYES: Pupils equal round and reactive to light, extraocular movements intact, sclera anicteric, conjunctiva are normal. ENT: TMs normal, nares patent, oropharynx clear without exudates. Moist mucous membranes. No oral ulcerations or bleeding gums noted NECK: supple without lymphadenopathy. Trachea is central. No cervical or axillary lymphadenopathy noted. Carotids are 2+, JVD 10-12 cm LUNGS: Respiration seems nonlabored, no significant accessory muscle action noted. Bibasilar fine crackles are noted. CHEST: Palpation of the chest wall shows no significant chest wall tenderness. No other significant abnormalities noted. 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 ABDOMEN: Soft, no significant tenderness appreciated, normoactive bowel sounds. No guarding, no rebound. No rigidity noted . No masses appreciated. EXTREMITIES: Pedal pulses are 1-2+, no calf tenderness noted. No clubbing or cyanosis. 1-2 + pedal edema noted NEUROLOGICAL: Focused neurological exam showed no significant neurologic deficit. Normal speech, no focal weakness appreciated. PSYCH: Normal mood, normal affect. Judgment and insight within normal limits. SKIN: No significant ecchymosis, rash, ulcerations noted left lower leg and also some minor ulcerations right lower leg. MUSCULOSKELETAL EXAM: No significant joint swelling noted. Results Laboratory Results: 06/28/17 03:55 06/27/17 02:50 Rzaa Catheter Urine Culture - Final NO GROWTH 2 DAYS 06/27/17 06/27/17 06/27/17 05:25 05:25 11:57 Creatine Kinase 431 H 426 H CK-MB (CK-2) 6.68 H Troponin I 0.071 06/27/17 06/27/17 06/27/17 11:57 17:35 17:35 Creatine Kinase 413 H CK-MB (CK-2) 7.47 H 5.63 H Troponin I 0.073 0.067 EKG Comments: Telemetry strips shows sinus rhythm Impressions: Chest X-Ray 06/26/17 20:38 IMPRESSION: INCREASED RIGHT PLEURAL EFFUSION WITH ASSOCIATED COMPRESSIVE ATELECTASIS/ AIRSPACE DISEASE. Assessment & Plan - Diagnosis (1) Acute on chronic combined systolic and diastolic CHF, NYHA class 3 Is this a current diagnosis for this admission?: Yes (2) Cardiomyopathy Qualifiers: Cardiomyopathy type: unspecified Qualified Code(s): I42.9 - Cardiomyopathy , unspecified Is this a current diagnosis for this admission?: Yes (3) Hypertension Qualifiers: Hypertension type: essential hypertension Qualified Code(s): I10 - Essential (primary) hypertension Is this a current diagnosis for this admission?: Yes (4) Hypotension Qualifiers: Hypotension type: unspecified hypotension type Qualified Code(s): I95.9 - Hypotension, unspecified Is this a current diagnosis for this admission?: Yes (5) Mitral valve regurgitation Qualifiers: Cardiac valve disease etiology: nonrheumatic Qualified Code(s): I34.0 - Nonrheumatic mitral (valve) insufficiency Is this a current diagnosis for this admission?: Yes (6) Cardiac defibrillator in situ Is this a current diagnosis for this admission?: Yes (7) Chronic kidney disease, stage 4 (severe) Is this a current diagnosis for this admission?: Yes (8) Pulmonary hypertension Is this a current diagnosis for this admission?: Yes - Notes Notes: Patient has severe cardiomyopathy, coronary artery disease and significant renal disease and other significant comorbid diagnosis. Patient does have credit resolution representative in [facility]. Patient not progressing well. Have started patient back on entresto. Will gradually restart carvedilol as blood pressure will allow. It may be worthwhile to consider transfer to tertiary care to see if any other options are available to this patient. Will discuss with Dr. Workman.. - Time Time with patient: Greater than 35 minutes - CODE STATUS was discussed, patient remains full code. Surrogate decision-maker unchanged. Multiple medical problems were addressed. More than 50% of the time spent coordinating care, discussing management plans with involved caregivers. Management plans discussed with involved personnels. Medical decision making was of moderate to high complexity, patient's has multiple comorbidities. Medications reviewed and adjusted accordingly: Yes
--- NOTE | 2017-06-29 21:37 | PDOC PROGRESS REPORT ---
Subjective Progress Note for:: 06/29/17 Subjective:: She complained of pain all over her body she is requesting for morphine but the blood pressure is low she is presently on intravenous pressors to maintain blood pressure she has allergy to tramadol, oxycodone she is presently on acetaminophen for pain control. She was seen by Dr. Dozier today the last time she was seen by Dr. Dozier inpatient she was [facility] was [facility] for patient to be considered for ventricular assist device but it was felt that she is not a candidate for ventricular assist device this patient options are limited. She has AICD- pacemaker implantation already she been optimized on medical management. Physical Exam Vital Signs: Temp Pulse Resp BP Pulse Ox 99.3 F 98 18 101/60 96 06/29/17 16:12 06/29/17 16:12 06/29/17 16:12 06/29/17 16:12 06/29/17 16:35 Intake & Output 06/28/17 06/29/17 06/30/17 06:59 06:59 06:59 Intake Total 676 1385 372 Output Total 550 1150 700 Balance 126 235 -328 Weight 120 kg 116.5 kg 116.5 kg General appearance: PRESENT: no acute distress Eye exam: PRESENT: PERRLA Respiratory exam: PRESENT: clear to auscultation abdi Cardiovascular exam: PRESENT: +S1, +S2 GI/Abdominal exam: PRESENT: soft Extremities exam: PRESENT: pedal edema Results Laboratory Results: 06/28/17 03:55 06/27/17 02:50 Raza Catheter Urine Culture - Final NO GROWTH 2 DAYS 06/27/17 06/27/17 06/27/17 05:25 05:25 11:57 Creatine Kinase 431 H 426 H CK-MB (CK-2) 6.68 H Troponin I 0.071 06/27/17 06/27/17 06/27/17 11:57 17:35 17:35 Creatine Kinase 413 H CK-MB (CK-2) 7.47 H 5.63 H Troponin I 0.073 0.067 Impressions: Chest X-Ray 06/26/17 20:38 IMPRESSION: INCREASED RIGHT PLEURAL EFFUSION WITH ASSOCIATED COMPRESSIVE ATELECTASIS/ AIRSPACE DISEASE. Assessment & Plan - Diagnosis (1) Acute combined systolic (congestive) and diastolic (congestive) heart failure Is this a current diagnosis for this admission?: Yes (2) Nephrotic syndrome Is this a current diagnosis for this admission?: Yes (3) Focal segmental glomerulosclerosis Is this a current diagnosis for this admission?: Yes (4) Pulmonary hypertension Is this a current diagnosis for this admission?: Yes (5) Mitral valve regurgitation Qualifiers: Cardiac valve disease etiology: nonrheumatic Qualified Code(s): I34.0 - Nonrheumatic mitral (valve) insufficiency Is this a current diagnosis for this admission?: Yes (6) Subclinical hypothyroidism Is this a current diagnosis for this admission?: Yes (7) Hypotension Qualifiers: Hypotension type: unspecified hypotension type Qualified Code(s): I95.9 - Hypotension, unspecified Is this a current diagnosis for this admission?: Yes - Plan Summary Plan Summary: She will continue present treatment
[2017-06-29] MEDS: SACUBITRIL/VALSARTAN 24 MG/26 MG TABLET PO SCH (22:08)
[2017-06-29] MEDS: ATORVASTATIN CALCIUM 80 MG TABLET PO SCH (22:16)
[2017-06-29 22:27] LABS: ALANINE AMINOTRANSFERASE 29 U/L (9-52); ALKALINE PHOSPHATASE 142 U/L (38-126); ANION GAP 6 (5-19); ASPARTATE AMINO TRANSFERASE 17 U/L (14-36); BILIRUBIN,DIRECT 1.2 mg/dL (0.0-0.4); BILIRUBIN,TOTAL 1.4 mg/dL (0.2-1.3); BLOOD UREA NITROGEN 72 mg/dL (7-20); CALCIUM 7.7 mg/dL (8.4-10.2); CARBON DIOXIDE 25 mmol/L (22-30); CHLORIDE 103 mmol/L (98-107); CREATININE RESULT 2.89 mg/dL (0.52-1.25); GLUCOSE 110 mg/dL (75-110); SODIUM 133.9 mmol/L (137-145); TOTAL PROTEIN 4.2 g/dL (6.3-8.2)
[2017-06-30] MEDS: ACETAMINOPHEN WITH CODEINE #3 TABLET PO SCH ×3 (01:02→17:25)
[2017-06-30] MEDS: HEPARIN SOD (PORCINE) 5,000 UNIT/ML 1 ML SYRINGE SUBCUT SCH ×3 (05:33→21:01)
[2017-06-30 07:47] LABS: HEMATOCRIT 38.9 % (36.0-47.0); HGB HCT DIFFERENCE 0.1; MEAN CORPUSCULAR HEMOGLOBIN 28.4 pg (27.0-33.4); MEAN CORPUSCULAR HGB CONC 33.5 g/dL (32.0-36.0); MEAN CORPUSCULAR VOLUME 85 fl (80-97); RED BLOOD COUNT 4.57 10^6/uL (3.72-5.28); RED CELL DISTRIBUTION WIDTH 18.8 % (11.5-14.0); WHITE BLOOD COUNT 13.7 10^3/uL (4.0-10.5)
[2017-06-30 08:04] LABS: ALANINE AMINOTRANSFERASE 28 U/L (9-52); ALBUMIN 2.1 g/dL (3.5-5.0); ALKALINE PHOSPHATASE 177 U/L (38-126); ANION GAP 9 (5-19); ASPARTATE AMINO TRANSFERASE 20 U/L (14-36); BILIRUBIN,DIRECT 1.3 mg/dL (0.0-0.4); BILIRUBIN,TOTAL 1.7 mg/dL (0.2-1.3); BLOOD UREA NITROGEN 71 mg/dL (7-20); CALCIUM 7.7 mg/dL (8.4-10.2); CARBON DIOXIDE 24 mmol/L (22-30); CHLORIDE 103 mmol/L (98-107); CREATININE RESULT 2.77 mg/dL (0.52-1.25); GLUCOSE 110 mg/dL (75-110); POTASSIUM 3.9 mmol/L (3.6-5.0); SODIUM 135.5 mmol/L (137-145); TOTAL PROTEIN 4.5 g/dL (6.3-8.2)
--- NOTE | 2017-06-30 08:31 | RADIOLOGY REPORT (SQ) ---
EXAM DESCRIPTION: U/S RETROPERITON LTD COMPLETED DATE/TIME: 06/29/2017 8:54 pm REASON FOR STUDY: Ruleout renal carcinoma COMPARISON: CT abdomen pelvis 11/25/2016 Abdominal ultrasound 12/28/2015, 11/01/2013 TECHNIQUE: Dynamic and static grayscale images acquired of the kidneys and bladder and recorded on P ACS. Additional selected color Doppler and spectral images recorded. LIMITATIONS: Patient body habitus FINDINGS: Very limited study due to patient body habitus. Right kidney is 9 cm in length, no hydron ephrosis. Grossly normal parenchymal thickness. Left kidney 11.1 cm in length. No hydronephrosis. Grossly normal cortical thickness. Bladder not identified, decompressed. At least moderate size right pleural effusion is present. IMPRESSION: Very limited study. No hydronephrosis. Moderate right pleural effusion TECHNICAL DOCUMENTATION: JOB ID: [id number] [employer]- All Rights Reserved
--- NOTE | 2017-06-30 08:33 | RADIOLOGY REPORT (SQ) ---
EXAM DESCRIPTION: U/S NON-OB PELVIS TV W/O DOP COMPLETED DATE/TIME: 06/29/2017 8:59 pm REASON FOR STUDY: look at endometrium stripe COMPARISON: CT abdomen pelvis 11/25/2016 TECHNIQUE: Dynamic and static grayscale images acquired of the pelvis via transvaginal approach and recorded on PACS. Additional selected color Doppler and spectral images recorded. LIMITATIONS: Large patient, unable to fill her bladder. FINDINGS: Uterus is 9.4 x 5.7 x 5.5 cm in size. Endometrial stripe 6 mm in thickness. Cervix closed, 3.3 cm in length. The ovaries were not identified, adnexal bowel gas shadowing. Small amount of cul-de-sac free pelvic fluid. IMPRESSION: Normal size uterus. Endometrial stripe 6 mm in thickness. Ovaries not visualized. TECHNICAL DOCUMENTATION: JOB ID: [id number] [employer]- All Rights Reserved
[2017-06-30 08:46] LABS: BASOPHILS % (MANUAL) 0 % (0-2); EOSINOPHILS % (MANUAL) 1 % (0-6); LYMPHOCYTES % (MANUAL) 4 % (13-45); TOTAL CELLS COUNTED 100
[2017-06-30 08:54] LABS: ANISOCYTOSIS 2+; POIKILOCYTOSIS 1+; POLYCHROMASIA SLIGHT
[2017-06-30 08:55] LABS: BURR CELLS SLIGHT; OVALOCYTES SLIGHT
[2017-06-30] MEDS: LANSOPRAZOLE 30 MG TAB.RAP.DR PO SCH (10:45)
[2017-06-30] MEDS: LUBIPROSTONE 24 MCG CAPSULE PO SCH ×2 (10:45→17:26)
[2017-06-30] MEDS: ASPIRIN 81 MG TABLET, CHEWABLE PO SCH (10:46)
[2017-06-30] MEDS: CHOLECALCIFEROL (D3) 1,000 UNIT TABLET PO SCH (10:46)
[2017-06-30] MEDS: ALLOPURINOL 100 MG TABLET PO SCH (10:46)
[2017-06-30] MEDS: SACUBITRIL/VALSARTAN 24 MG/26 MG TABLET PO SCH ×2 (10:46→21:00)
[2017-06-30] MEDS: MEDROXYPROGESTERONE ACET 10 MG TABLET PO SCH (10:46)
[2017-06-30] MEDS: LEVOTHYROXINE SODIUM 0.05 MG TABLET PO SCH (10:46)
--- NOTE | 2017-06-30 10:54 | PDOC PROGRESS REPORT ---
Subjective Progress Note for:: 06/30/17 Subjective:: Patient claims she is not doing well. She claims body ache all over especially left lower leg. She also feels very fatigued and tired. Patient also complains of chronic itching. Currently on dopamine drip at 3 mics per KG per minute. Patient entresto and carvedilol were stopped. Patient has significant renal dysfunction. Patient claims that her blood pressure has been low. Yesterday I ordered for entresto to be started at the lower dose. Patient's blood pressure may need to be taken manually preferably in the right arm. Reviewed Dr. Workman's note. Physical Exam Vital Signs: Temp Pulse Resp BP Pulse Ox 98.2 F 87 20 122/79 97 06/30/17 07:53 06/30/17 07:53 06/30/17 07:53 06/30/17 07:53 06/30/17 07:53 Intake & Output 06/29/17 06/30/17 07/01/17 06:59 06:59 06:59 Intake Total 1385 1281 Output Total 1150 1500 Balance 235 -219 Weight 116.5 kg 116.3 kg Exam: GENERAL: well-nourished and in no acute distress. Alert and oriented x3 HEAD: Atraumatic, normocephalic. EYES: Pupils equal round and reactive to light, extraocular movements intact, sclera anicteric, conjunctiva are normal. ENT: TMs normal, nares patent, oropharynx clear without exudates. Moist mucous membranes. No oral ulcerations or bleeding gums noted NECK: supple without lymphadenopathy. Trachea is central. No cervical or axillary lymphadenopathy noted. Carotids are 2+, JVD 10-12 cm LUNGS: Respiration seems nonlabored, no significant accessory muscle action noted. Bibasilar fine crackles are noted. CHEST: Palpation of the chest wall shows no significant chest wall tenderness. No other significant abnormalities noted. 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 ABDOMEN: Soft, no significant tenderness appreciated, normoactive bowel sounds. No guarding, no rebound. No rigidity noted . No masses appreciated. EXTREMITIES: Pedal pulses are 1-2+, no calf tenderness noted. No clubbing or cyanosis. 1-2 + pedal edema noted NEUROLOGICAL: Focused neurological exam showed no significant neurologic deficit. Normal speech, no focal weakness appreciated. PSYCH: Normal mood, normal affect. Judgment and insight within normal limits. SKIN: No significant ecchymosis, rash, ulcerations noted left lower leg and also some minor ulcerations right lower leg. MUSCULOSKELETAL EXAM: No significant joint swelling noted. Results Laboratory Results: 06/30/17 07:28 06/30/17 07:28 06/29/17 06/30/17 06/30/17 21:55 07:28 07:28 WBC 13.7 H RBC 4.57 Hgb 13.0 Hct 38.9 MCV 85 MCH 28.4 MCHC 33.5 RDW 18.8 H Plt Count 138 L Seg Neutrophils % Not Reportable Lymphocytes % Not Reportable Monocytes % Not Reportable Eosinophils % Not Reportable Basophils % Not Reportable Absolute Neutrophils Not Reportable Absolute Lymphocytes Not Reportable Absolute Monocytes Not Reportable Absolute Eosinophils Not Reportable Absolute Basophils Not Reportable Sodium 133.9 L 135.5 L Potassium 4.0 3.9 Chloride 103 103 Carbon Dioxide 25 24 Anion Gap 6 9 BUN 72 H 71 H Creatinine 2.89 H 2.77 H Est GFR ( Amer) 22 L 23 L Est GFR (Non-Af Amer) 18 L 19 L Glucose 110 110 Calcium 7.7 L 7.7 L Total Bilirubin 1.4 H 1.7 H AST 17 20 ALT 29 28 Alkaline Phosphatase 142 H 177 H Total Protein 4.2 L 4.5 L Albumin 2.0 L 2.1 L 06/27/17 02:50 Raza Catheter Urine Culture - Final NO GROWTH 2 DAYS 06/27/17 06/27/17 06/27/17 05:25 05:25 11:57 Creatine Kinase 431 H 426 H CK-MB (CK-2) 6.68 H Troponin I 0.071 06/27/17 06/27/17 06/27/17 11:57 17:35 17:35 Creatine Kinase 413 H CK-MB (CK-2) 7.47 H 5.63 H Troponin I 0.073 0.067 EKG Comments: Telemetry strips shows sinus rhythm without any sustained tachycardia or bradycardia arrhythmias. Impressions: Chest X-Ray 06/26/17 20:38 IMPRESSION: INCREASED RIGHT PLEURAL EFFUSION WITH ASSOCIATED COMPRESSIVE ATELECTASIS/ AIRSPACE DISEASE. Transvaginal US 06/29/17 00:00 IMPRESSION: Normal size uterus. Endometrial stripe 6 mm in thickness. Ovaries not visualized. Renal Ultrasound 06/29/17 15:22 IMPRESSION: Very limited study. No hydronephrosis. Moderate right pleural effusion Assessment & Plan - Diagnosis (1) Acute on chronic combined systolic and diastolic CHF, NYHA class 3 Is this a current diagnosis for this admission?: Yes (2) Cardiomyopathy Qualifiers: Cardiomyopathy type: unspecified Qualified Code(s): I42.9 - Cardiomyopathy , unspecified Is this a current diagnosis for this admission?: Yes (3) Hypertension Qualifiers: Hypertension type: essential hypertension Qualified Code(s): I10 - Essential (primary) hypertension Is this a current diagnosis for this admission?: Yes (4) Hypotension Qualifiers: Hypotension type: unspecified hypotension type Qualified Code(s): I95.9 - Hypotension, unspecified Is this a current diagnosis for this admission?: Yes (5) Mitral valve regurgitation Qualifiers: Cardiac valve disease etiology: nonrheumatic Qualified Code(s): I34.0 - Nonrheumatic mitral (valve) insufficiency Is this a current diagnosis for this admission?: Yes (6) Cardiac defibrillator in situ Is this a current diagnosis for this admission?: Yes (7) Cardiomyopathy Qualifiers: Cardiomyopathy type: unspecified Qualified Code(s): I42.9 - Cardiomyopathy , unspecified Is this a current diagnosis for this admission?: Yes (8) Chronic kidney disease, stage 4 (severe) Is this a current diagnosis for this admission?: Yes (9) Type 2 diabetes mellitus Qualifiers: Diabetes mellitus complication status: with unspecified complications Diabetes mellitus terminal block assembler insulin use: without intermediate use Qualified Code( s): E11.8 - Type 2 diabetes mellitus with unspecified complications - Notes Notes: Ordered chest x-ray today. Patient remains on low-dose dopamine drip. Patient also remains on Lasix drip. Consider spironolactone therapy if okay with screen cutter and trimmer. Patient has significant ongoing multiple comorbid diagnosis. At this point continue with IV Lasix for CHF management. Gradually optimized dose of entresto for cardiomyopathy and CHF management. Blood pressure is satisfactory. No recent cardiac defibrillator discharges noted. Patient also has chronic kidney disease and is being managed by screen cutter and trimmer. Diabetes management is noted to be satisfactory and is being managed by uniformer. Telemetry strips were reviewed. Patient remains critically chronically very ill with multiple chronic problems. Continue with supportive care. - Time Time with patient: Greater than 35 minutes - CODE STATUS was discussed, patient remains full code. Surrogate decision-maker unchanged. Multiple medical problems were addressed. More than 50% of the time spent coordinating care, discussing management plans with involved caregivers. Management plans discussed with involved personnels. Medical decision making was of moderate to high complexity, patient's has multiple comorbidities. Medications reviewed and adjusted accordingly: Yes
[2017-06-30] MEDS: NORMAL SALINE 250 ML with FUROSEMIDE 250 MG IV PRN ×2 (13:45)
--- NOTE | 2017-06-30 14:56 | RADIOLOGY REPORT (SQ) ---
EXAM DESCRIPTION: CHEST SINGLE VIEW COMPLETED DATE/TIME: 06/30/2017 2:04 pm REASON FOR STUDY: follow-up CHF COMPARISON: CT chest 05/05/2017 Chest films 05/06/2017 and 06/26/2017 EXAM PARAMETERS: NUMBER OF VIEWS: One view. TECHNIQUE: Single frontal radiographic view of the chest acquired. RADIATION DOSE: NA LIMITATIONS: None. FINDINGS: LUNGS AND PLEURA: No opacities, masses or pneumothorax. No pleural effusion. MEDIASTINUM AND HILAR STRUCTURES: No masses. Contour normal. HEART AND VASCULAR STRUCTURES: Massive cardiomegaly, stable. BONES: No acute findings. HARDWARE: Left-sided pacemaker/ defibrillator unchanged. OTHER: No other significant finding. IMPRESSION: Stable cardiomegaly. No acute infiltrates. TECHNICAL DOCUMENTATION: JOB ID: [id number]
[2017-06-30] MEDS: DIPHENHYDRAMINE HCL 25 MG CAPSULE PO PRN (21:00)
[2017-06-30] MEDS: ATORVASTATIN CALCIUM 80 MG TABLET PO SCH (21:00)
[2017-06-30] MEDS: DOPAMINE HCL 800 MG/D5W 250 ML IV PRN (21:10)
--- NOTE | 2017-06-30 21:45 | PDOC PROGRESS REPORT ---
Subjective Progress Note for:: 06/30/17 Subjective:: Patient was seen by the bedside she still continues to complain of pain if there is no significant change in her condition ,she will be transferred to [facility] tomorrow Physical Exam Vital Signs: Temp Pulse Resp BP Pulse Ox 98.4 F 81 22 H 117/80 100 06/30/17 19:53 06/30/17 19:53 06/30/17 19:53 06/30/17 19:53 06/30/17 19:53 Intake & Output 06/29/17 06/30/17 07/01/17 06:59 06:59 06:59 Intake Total 1385 1281 1023 Output Total 1150 1500 2400 Balance 235 -219 -1377 Weight 116.5 kg 116.3 kg General appearance: PRESENT: mild distress Eye exam: PRESENT: PERRLA Respiratory exam: PRESENT: decreased breath sounds Cardiovascular exam: PRESENT: +S1, +S2 GI/Abdominal exam: PRESENT: soft Neurological exam: PRESENT: alert, CN II-XII grossly intact Results Laboratory Results: 06/30/17 07:28 06/30/17 07:28 06/29/17 06/30/17 06/30/17 21:55 07:28 07:28 WBC 13.7 H RBC 4.57 Hgb 13.0 Hct 38.9 MCV 85 MCH 28.4 MCHC 33.5 RDW 18.8 H Plt Count 138 L Seg Neutrophils % Not Reportable Lymphocytes % Not Reportable Monocytes % Not Reportable Eosinophils % Not Reportable Basophils % Not Reportable Absolute Neutrophils Not Reportable Absolute Lymphocytes Not Reportable Absolute Monocytes Not Reportable Absolute Eosinophils Not Reportable Absolute Basophils Not Reportable Sodium 133.9 L 135.5 L Potassium 4.0 3.9 Chloride 103 103 Carbon Dioxide 25 24 Anion Gap 6 9 BUN 72 H 71 H Creatinine 2.89 H 2.77 H Est GFR ( Amer) 22 L 23 L Est GFR (Non-Af Amer) 18 L 19 L Glucose 110 110 Calcium 7.7 L 7.7 L Total Bilirubin 1.4 H 1.7 H AST 17 20 ALT 29 28 Alkaline Phosphatase 142 H 177 H Total Protein 4.2 L 4.5 L Albumin 2.0 L 2.1 L 06/27/17 06/27/17 06/27/17 05:25 05:25 11:57 Creatine Kinase 431 H 426 H CK-MB (CK-2) 6.68 H Troponin I 0.071 06/27/17 06/27/17 06/27/17 11:57 17:35 17:35 Creatine Kinase 413 H CK-MB (CK-2) 7.47 H 5.63 H Troponin I 0.073 0.067 Impressions: Transvaginal US 06/29/17 00:00 IMPRESSION: Normal size uterus. Endometrial stripe 6 mm in thickness. Ovaries not visualized. Renal Ultrasound 06/29/17 15:22 IMPRESSION: Very limited study. No hydronephrosis. Moderate right pleural effusion Chest X-Ray 06/30/17 10:58 IMPRESSION: Stable cardiomegaly. No acute infiltrates. Assessment & Plan - Diagnosis (1) Acute combined systolic (congestive) and diastolic (congestive) heart failure Is this a current diagnosis for this admission?: Yes (2) Nephrotic syndrome Is this a current diagnosis for this admission?: Yes (3) Focal segmental glomerulosclerosis Is this a current diagnosis for this admission?: Yes (4) Pulmonary hypertension Is this a current diagnosis for this admission?: Yes (5) Mitral valve regurgitation Qualifiers: Cardiac valve disease etiology: nonrheumatic Qualified Code(s): I34.0 - Nonrheumatic mitral (valve) insufficiency Is this a current diagnosis for this admission?: Yes (6) Subclinical hypothyroidism Is this a current diagnosis for this admission?: Yes (7) Hypotension Qualifiers: Hypotension type: unspecified hypotension type Qualified Code(s): I95.9 - Hypotension, unspecified Is this a current diagnosis for this admission?: Yes - Plan Summary Plan Summary: She will continue present treatment
[2017-07-01] MEDS: ACETAMINOPHEN WITH CODEINE #3 TABLET PO SCH ×3 (03:02→18:06)
[2017-07-01] MEDS: DIPHENHYDRAMINE HCL 25 MG CAPSULE PO PRN ×3 (03:03→18:06)
[2017-07-01] MEDS: HEPARIN SOD (PORCINE) 5,000 UNIT/ML 1 ML SYRINGE SUBCUT SCH ×2 (05:20→14:35)
[2017-07-01 10:35] LABS: HEMATOCRIT 42.8 % (36.0-47.0); HEMOGLOBIN 13.9 g/dL (12.0-15.5); HGB HCT DIFFERENCE -1.1; MEAN CORPUSCULAR HEMOGLOBIN 27.7 pg (27.0-33.4); MEAN CORPUSCULAR HGB CONC 32.4 g/dL (32.0-36.0); MEAN CORPUSCULAR VOLUME 85 fl (80-97); RED BLOOD COUNT 5.02 10^6/uL (3.72-5.28); RED CELL DISTRIBUTION WIDTH 18.9 % (11.5-14.0); WHITE BLOOD COUNT 14.5 10^3/uL (4.0-10.5)
[2017-07-01 10:50] LABS: ANION GAP 7 (5-19); BLOOD UREA NITROGEN 67 mg/dL (7-20); CALCIUM 8.3 mg/dL (8.4-10.2); CARBON DIOXIDE 26 mmol/L (22-30); CHLORIDE 104 mmol/L (98-107); CREATININE RESULT 2.68 mg/dL (0.52-1.25); GLUCOSE 86 mg/dL (75-110); POTASSIUM 3.5 mmol/L (3.6-5.0); SODIUM 136.6 mmol/L (137-145)
[2017-07-01 11:08] LABS: BAND NEUTROPHILS % (MANUAL) 1 % (3-5); BASOPHILS % (MANUAL) 0 % (0-2); EOSINOPHILS % (MANUAL) 0 % (0-6); LYMPHOCYTES % (MANUAL) 4 % (13-45); TOTAL CELLS COUNTED 100
[2017-07-01 11:10] LABS: ACANTHOCYTES 1+; ANISOCYTOSIS 2+; OVALOCYTES SLIGHT; POIKILOCYTOSIS 1+; POLYCHROMASIA 1+; TOXIC VACUOLATION PRESENT
--- NOTE | 2017-07-01 11:21 | PDOC PROGRESS REPORT ---
Subjective Progress Note for:: 07/01/17 Subjective:: Patient claims she is not doing well. She claims body ache all over especially left lower leg. She also feels very fatigued and tired. Patient also complains of chronic itching. Currently on dopamine drip at 3 mics per KG per minute. Patient entresto and carvedilol were stopped. Patient has significant renal dysfunction. Patient claims that her blood pressure has been low. It seems patient has not been getting entresto. It may be worthwhile to consider hydralazine nitrate combination in this patient. May also consider starting spironolactone, if cleared by reconsignment clerk.. Patient's blood pressure may need to be taken manually preferably in the right arm. Reviewed Dr. Workman's note. Physical Exam Vital Signs: Temp Pulse Resp BP Pulse Ox 97.6 F 98 17 97/79 L 97 07/01/17 04:12 07/01/17 07:00 07/01/17 04:12 07/01/17 04:12 07/01/17 04:12 Intake & Output 06/30/17 07/01/17 07/02/17 06:59 06:59 06:59 Intake Total 1281 2703 Output Total 1500 3600 Balance -219 -897 Weight 116.3 kg 113.6 kg Exam: GENERAL: well-nourished and in some chronic pain. Alert and oriented x3 HEAD: Atraumatic, normocephalic. EYES: Pupils equal round and reactive to light, extraocular movements intact, sclera anicteric, conjunctiva are normal. ENT: TMs normal, nares patent, oropharynx clear without exudates. Moist mucous membranes. No oral ulcerations or bleeding gums noted NECK: supple without lymphadenopathy. Trachea is central. No cervical or axillary lymphadenopathy noted. Carotids are 2+, JVD 10-12 cm LUNGS: Respiration seems nonlabored, no significant accessory muscle action noted. Bibasilar fine crackles are noted. CHEST: Palpation of the chest wall shows no significant chest wall tenderness. No other significant abnormalities noted. 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 ABDOMEN: Soft, no significant tenderness appreciated, normoactive bowel sounds. No guarding, no rebound. No rigidity noted . No masses appreciated. EXTREMITIES: Pedal pulses are difficult to feel, no calf tenderness noted. No clubbing or cyanosis. 1-2 + pedal edema noted. NEUROLOGICAL: Focused neurological exam showed no significant neurologic deficit. Normal speech, no focal weakness appreciated. PSYCH: Normal mood, normal affect. Judgment and insight within normal limits. SKIN: No significant ecchymosis, rash, ulcerations noted left lower leg and also some minor ulcerations right lower leg. MUSCULOSKELETAL EXAM: No significant joint swelling noted. Results Laboratory Results: 07/01/17 10:20 07/01/17 10:20 07/01/17 07/01/17 10:20 10:20 WBC 14.5 H RBC 5.02 Hgb 13.9 Hct 42.8 MCV 85 MCH 27.7 MCHC 32.4 RDW 18.9 H Plt Count 164 Seg Neutrophils % Not Reportable Lymphocytes % Not Reportable Monocytes % Not Reportable Eosinophils % Not Reportable Basophils % Not Reportable Absolute Neutrophils Not Reportable Absolute Lymphocytes Not Reportable Absolute Monocytes Not Reportable Absolute Eosinophils Not Reportable Absolute Basophils Not Reportable Sodium 136.6 L Potassium 3.5 L Chloride 104 Carbon Dioxide 26 Anion Gap 7 BUN 67 H Creatinine 2.68 H Est GFR ( Amer) 24 L Est GFR (Non-Af Amer) 19 L Glucose 86 Calcium 8.3 L 06/27/17 06/27/17 06/27/17 05:25 05:25 11:57 Creatine Kinase 431 H 426 H CK-MB (CK-2) 6.68 H Troponin I 0.071 06/27/17 06/27/17 06/27/17 11:57 17:35 17:35 Creatine Kinase 413 H CK-MB (CK-2) 7.47 H 5.63 H Troponin I 0.073 0.067 Impressions: Transvaginal US 06/29/17 00:00 IMPRESSION: Normal size uterus. Endometrial stripe 6 mm in thickness. Ovaries not visualized. Renal Ultrasound 06/29/17 15:22 IMPRESSION: Very limited study. No hydronephrosis. Moderate right pleural effusion Chest X-Ray 06/30/17 10:58 IMPRESSION: Stable cardiomegaly. No acute infiltrates. Assessment & Plan - Diagnosis (1) Acute on chronic combined systolic and diastolic CHF, NYHA class 3 Is this a current diagnosis for this admission?: Yes (2) Cardiomyopathy Qualifiers: Cardiomyopathy type: unspecified Qualified Code(s): I42.9 - Cardiomyopathy , unspecified Is this a current diagnosis for this admission?: Yes (3) Hypertension Qualifiers: Hypertension type: essential hypertension Qualified Code(s): I10 - Essential (primary) hypertension Is this a current diagnosis for this admission?: Yes (4) Hypotension Qualifiers: Hypotension type: unspecified hypotension type Qualified Code(s): I95.9 - Hypotension, unspecified Is this a current diagnosis for this admission?: Yes (5) Mitral valve regurgitation Qualifiers: Cardiac valve disease etiology: nonrheumatic Qualified Code(s): I34.0 - Nonrheumatic mitral (valve) insufficiency Is this a current diagnosis for this admission?: Yes (6) Cardiac defibrillator in situ Is this a current diagnosis for this admission?: Yes (7) Cardiomyopathy Qualifiers: Cardiomyopathy type: unspecified Qualified Code(s): I42.9 - Cardiomyopathy , unspecified Is this a current diagnosis for this admission?: Yes (8) Chronic kidney disease, stage 4 (severe) Is this a current diagnosis for this admission?: Yes (9) Type 2 diabetes mellitus Qualifiers: Diabetes mellitus complication status: with unspecified complications Diabetes mellitus longterm insulin use: without termite renewal inspector use Qualified Code( s): E11.8 - Type 2 diabetes mellitus with unspecified complications - Notes Notes: Chest x-ray reviewed shows significant improvement. The pleural effusion has improved however chest x-ray was a portable therefore could miss bilateral basal effusion. Any weight may be worthwhile to consider reducing IV Lasix so that her blood pressure can come up and we can start cardiomyopathy medication such as entresto, hydralazine nitrate combination, carvedilol gradually. It seems from Dr. Workman's note that patient was felt not a candidate for any LV assist device. This was on her previous admissions. However patient is full code and wants transfer to tertiary care just to see if patient can be reevaluated especially given her young age regarding any other cardiovascular, nephrology, rheumatological support that we do not have here. This was related to Dr. Workman, who will be contacting tertiary care regarding transfer. Patient has significant discomfort in lower extremity. Agree with arterial vascular duplex being done. Patient's blood pressure is on the low side. May consider starting Midodrin. Patient has significant comorbid diagnosis therefore needs some multiple specialist. The care is being coordinated by Dr. Workman. At this point, I will just leave my recommendation but not enter orders. Will continue to follow patient. Overall prognosis is on the poor side. This was explained to the patient. However patient seems to have somewhat limited understanding. - Time Time with patient: Greater than 35 minutes - CODE STATUS was discussed, patient remains full code. Surrogate decision-maker unchanged. Multiple medical problems were addressed. More than 50% of the time spent coordinating care, discussing management plans with involved caregivers. Management plans discussed with involved personnels. Medical decision making was of high complexity, patient's has multiple comorbidities. Total time spent was approximately 40 minutes. Medications reviewed and adjusted accordingly: Yes
[2017-07-01] MEDS: DORIPENEM 250 MG in NORMAL SALINE 50 ML IV SCH ×2 (11:45→18:06)
[2017-07-01] MEDS: LUBIPROSTONE 24 MCG CAPSULE PO SCH ×2 (11:52→17:10)
[2017-07-01] MEDS: MEDROXYPROGESTERONE ACET 10 MG TABLET PO SCH (11:52)
[2017-07-01] MEDS: LANSOPRAZOLE 30 MG TAB.RAP.DR PO SCH (11:52)
[2017-07-01] MEDS: LEVOTHYROXINE SODIUM 0.05 MG TABLET PO SCH (11:52)
[2017-07-01] MEDS: CHOLECALCIFEROL (D3) 1,000 UNIT TABLET PO SCH (11:52)
[2017-07-01] MEDS: ALLOPURINOL 100 MG TABLET PO SCH (11:53)
[2017-07-01] MEDS: ASPIRIN 81 MG TABLET, CHEWABLE PO SCH (11:53)
--- NOTE | 2017-07-01 14:25 | PDOC PROGRESS REPORT ---
Subjective Progress Note for:: 07/01/17 Subjective:: Patient was seen this morning today.She is not feeling well and is in respiratory distress as evidenced by being on BiPAP.She is complaining of pain affecting the left leg from the middle of the thigh downwards.She denies any history of fever, chills or riders.Discussed with the treating nurse. She has been started on dopamine at 2.5 mcg/kg as of yesterday for apparently low blood pressure.Also noted that she is on entresto.Vital signs shows variable blood pressures in the low 100s and sometimes in the high 90s.She has had better urine output on the current dose of IV Lasix.Labs and medications are reviewed with the patient and the treating nurse. In discussions with the treating nurse, the patient has been discussed by her with Dr. Bustamante and he is asked for an arterial Doppler of the left lower extremity. Physical Exam Vital Signs: Temp Pulse Resp BP Pulse Ox 97.6 F 98 17 97/79 L 97 07/01/17 04:12 07/01/17 07:00 07/01/17 04:12 07/01/17 04:12 07/01/17 04:12 Intake & Output 06/30/17 07/01/17 07/02/17 06:59 06:59 06:59 Intake Total 1281 2703 Output Total 1500 3600 Balance -219 -897 Weight 116.3 kg 113.6 kg General appearance: PRESENT: mild distress Respiratory exam: PRESENT: clear to auscultation abdi, crackles, decreased breath sounds. ABSENT: rhonchi Cardiovascular exam: PRESENT: +S1, +S2 GI/Abdominal exam: PRESENT: normal bowel sounds, soft. ABSENT: tenderness Extremities exam: PRESENT: +2 edema Neurological exam: PRESENT: awake, oriented to person, oriented to place Psychiatric exam: PRESENT: anxious, flat affect Skin exam: PRESENT: cyanosis - Of the left lower extremity affecting the feet and to the middle of the left foot. She apparently has some blistering of the middle of the left foot which is now currently wrapped up in a bandage according to the treating nurse., mottled - Left lower extremity Results Laboratory Results: 07/01/17 10:20 07/01/17 10:20 07/01/17 07/01/17 10:20 10:20 WBC 14.5 H RBC 5.02 Hgb 13.9 Hct 42.8 MCV 85 MCH 27.7 MCHC 32.4 RDW 18.9 H Plt Count 164 Seg Neutrophils % Not Reportable Lymphocytes % Not Reportable Monocytes % Not Reportable Eosinophils % Not Reportable Basophils % Not Reportable Absolute Neutrophils Not Reportable Absolute Lymphocytes Not Reportable Absolute Monocytes Not Reportable Absolute Eosinophils Not Reportable Absolute Basophils Not Reportable Sodium 136.6 L Potassium 3.5 L Chloride 104 Carbon Dioxide 26 Anion Gap 7 BUN 67 H Creatinine 2.68 H Est GFR ( Amer) 24 L Est GFR (Non-Af Amer) 19 L Glucose 86 Calcium 8.3 L 06/27/17 06/27/17 06/27/17 05:25 05:25 11:57 Creatine Kinase 431 H 426 H CK-MB (CK-2) 6.68 H Troponin I 0.071 06/27/17 06/27/17 06/27/17 11:57 17:35 17:35 Creatine Kinase 413 H CK-MB (CK-2) 7.47 H 5.63 H Troponin I 0.073 0.067 Impressions: Transvaginal US 06/29/17 00:00 IMPRESSION: Normal size uterus. Endometrial stripe 6 mm in thickness. Ovaries not visualized. Renal Ultrasound 06/29/17 15:22 IMPRESSION: Very limited study. No hydronephrosis. Moderate right pleural effusion Chest X-Ray 06/30/17 10:58 IMPRESSION: Stable cardiomegaly. No acute infiltrates. Assessment & Plan - Diagnosis (1) Acute on chronic combined systolic and diastolic CHF, NYHA class 3 Is this a current diagnosis for this admission?: Yes Plan: As per echocardiogram done couple of months earlier which I reviewed the patient has got biventricular failure. Her LV ejection fraction is around 25-30 % and she has gone right ventricular failure. She has got severe left ventricular global dyskinesia. (2) Cardiogenic shock Plan: Given her worsening hypertension the patient is developing early cardiogenic shock with other differentials including drug effects of carvedilol and Entresto. Other differentials to be considered could also be septic shock in light of the blistering's and changes developing in the left lower extremity.She is developed being cyanotic you have affecting the left lower extremity indicator of possible arterial compromise.Recommend discontinuation of interest for the moment and cutting down the dopamine to 1 mcg/kg. Will get blood cultures and started on IV doripenem adjusted to current renal status. His blood pressure continues to drop then she will probably go deeper into her cardiorenal syndrome with worsening and anuric renal functions.That develop she would need to be on continuous renal replacement therapy which we do not have in this hospital and when one would have to consider transferring her at that time. (3) Cardiomyopathy Qualifiers: Cardiomyopathy type: unspecified Qualified Code(s): I42.9 - Cardiomyopathy , unspecified Is this a current diagnosis for this admission?: Yes Plan: Given her biventricular failure she looks like she she would be requiring a cardiac transplant. However, given no overall comorbidities she would not be a candidate for that. (4) Dysfunctional uterine bleeding Is this a current diagnosis for this admission?: Yes (5) Focal segmental glomerulosclerosis Is this a current diagnosis for this admission?: Yes Plan: Secondary to diabetes mellitus. Treat primary cause. (6) Hypotension Qualifiers: Hypotension type: unspecified hypotension type Qualified Code(s): I95.9 - Hypotension, unspecified Is this a current diagnosis for this admission?: Yes Plan: Differential is as explained earlier includes early developing of cardiogenic shock, drug effects, probably septic shock.Suggest holding back on the interest of which have gone on to discontinue. Suggest cutting back on the dopamine given her arterial compromise of the left lower extremity. If she drops her blood pressure further would recommend transfer to ICU and starting on Levophed and possibly dobutamine. Have gone on to get blood cultures and started on IV doripenem adjusted to renal status.Overall prognosis is poor. (7) Chronic kidney disease, stage 4 (severe) Plan: Nonoliguric. Currently stable. Good urine output. (8) Type 2 diabetes mellitus Qualifiers: Diabetes mellitus complication status: with unspecified complications Diabetes mellitus lobsterman insulin use: without snf use Qualified Code( s): E11.8 - Type 2 diabetes mellitus with unspecified complications (9) Morbid obesity Plan: Could be a factor for the development of right heart failure (10) Arterial insufficiency of lower extremity Plan: Left lower extremity. Arterial Dopplers have been ordered. Would get surgical consult given her blistering and possibility of infection affecting her left lower extremity as well.Antibiotics have been ordered as mentioned earlier.
[2017-07-01] MEDS: NORMAL SALINE 250 ML with FUROSEMIDE 250 MG IV PRN ×2 (14:43)
--- NOTE | 2017-07-01 14:43 | PDOC TRANSFER SUMMARY ---
General Admission Date/PCP: 06/27/17 01:45 VU GUZMAN MD Admission Date: 06/27/17 Transfer Date: 07/01/17 Accepting Facility: [facility] Resuscitation Status: Full Code - Transfer Diagnosis (1) Acute combined systolic (congestive) and diastolic (congestive) heart failure Is this a current diagnosis for this admission?: Yes (2) Nephrotic syndrome Is this a current diagnosis for this admission?: Yes (3) Focal segmental glomerulosclerosis Is this a current diagnosis for this admission?: Yes (4) Pulmonary hypertension Is this a current diagnosis for this admission?: Yes (5) Mitral valve regurgitation Is this a current diagnosis for this admission?: Yes (6) Subclinical hypothyroidism Is this a current diagnosis for this admission?: Yes (7) Hypotension Is this a current diagnosis for this admission?: Yes (8) Cardiorenal syndrome with renal failure Is this a current diagnosis for this admission?: Yes (9) Cellulitis of left lower leg Is this a current diagnosis for this admission?: Yes (10) Uterine bleeding Is this a current diagnosis for this admission?: Yes - Transfer Medications Home Medications: Allopurinol [Zyloprim 100 mg Tablet] 100 mg PO DAILY 11/25/16 Aspirin [Aspirin 81 mg Chewable Tablet] 81 mg PO DAILY 11/25/16 Docusate Sodium [Colace 100 mg Capsule] 100 mg PO BIDP PRN 11/25/16 Omeprazole 40 mg PO DAILY 11/25/16 Cholecalciferol (Vitamin D3) [Vitamin D3] 4,000 unit PO DAILY 05/04/17 Diphenhydramine HCl [Benadryl 25 mg Capsule] 25 mg PO Q4HP PRN 05/04/17 Acetaminophen with Codeine [Acetaminophen-Cod #3 Tablet] 1 each PO Q8 06/27/17 Lubiprostone [Amitiza] 24 mcg PO BID 06/27/17 Medroxyprogesterone Acet [Provera 10 mg Tablet] 1 tab PO DAILY 06/27/17 Transfer Medications: Current Medications Acetaminophen/Codeine Phosphate (Tylenol #3 Tablet) 1 each PO Q8A DEBBY Stop: 07/04/17 09:59 Last Admin: 07/01/17 11:53 Dose: 1 each Allopurinol (Zyloprim 100 Mg Tablet) 100 mg PO DAILY DEBBY Stop: 07/27/17 09:59 Last Admin: 07/01/17 11:53 Dose: 100 mg Aspirin (Aspirin 81 Mg Chewable Tablet) 81 mg PO DAILY DEBBY Stop: 07/27/17 09:59 Last Admin: 07/01/17 11:53 Dose: 81 mg Atorvastatin Calcium (Lipitor 80 Mg Tablet) 80 mg PO QHS DEBBY Stop: 07/27/17 21:59 Last Admin: 06/30/17 21:00 Dose: 80 mg Carvedilol (Coreg 12.5 Mg Tablet) 25 mg PO Q12 DEBBY Stop: 07/27/17 09:59 Last Admin: 06/28/17 11:11 Dose: Not Given Cholecalciferol (Vitamin D3 1000 Unit Tablet) 4,000 unit PO DAILY DEBBY Stop: 07/27/17 09:59 Last Admin: 07/01/17 11:52 Dose: 4,000 unit Dextrose (Dextrose Inj 50% Syringe (25 Gm/50 Ml)) 12.5 gm IV PRN PRN; Protocol PRN Reason: FOR BG 50-69 IN ALERT PATIENT Stop: 07/27/17 18:58 Dextrose (Dextrose Inj 50% Syringe (25 Gm/50 Ml)) 25 gm IV PRN PRN PRN Reason: Protocol Stop: 07/27/17 18:58 Diphenhydramine HCl (Benadryl 25 Mg Capsule) 25 mg PO Q6HP PRN PRN Reason: ITCHING Stop: 07/30/17 18:25 Last Admin: 07/01/17 12:04 Dose: 25 mg Docusate Sodium (Colace 100 Mg Capsule) 100 mg PO BIDP PRN PRN Reason: CONSTIPATION Stop: 07/27/17 09:04 Glucagon (Glucagen Inj 1 Mg Vial) 1 mg IM PRN PRN; Protocol PRN Reason: EVALUATE FOR BG < 70 Stop: 07/27/17 18:58 Glucose (Glutose 40% Gel 15 Gm Tube) 15 gm PO PRN PRN; Protocol PRN Reason: FOR BG 50-69 IN ALERT PATIENT Stop: 07/27/17 18:58 Glucose (Glutose 40% Gel 15 Gm Tube) 30 gm PO PRN PRN; Protocol PRN Reason: FOR BG < 50 IN ALERT PATIENT Stop: 07/27/17 18:58 Heparin Sodium (Porcine) (Heparin Inj 5,000 Units/Ml 1 Ml Syringe) 5,000 unit SUBCUT Q8 DEBBY Stop: 07/27/17 05:59 Last Admin: 07/01/17 05:20 Dose: 5,000 unit Furosemide 250 mg/ Sodium (Chloride) 275 mls @ 5.5 mls/hr IV CONTINUOUS PRN; 5 MG/HR PRN Reason: THIS MED IS NOT "PRN" Stop: 07/27/17 01:49 Last Admin: 06/30/17 13:45 Dose: 250 mg Dopamine HCl/Dextrose (Dopamine Rtu 800 Mg-D5w 250 Ml (Adult) Premix) 800 mg in 250 mls @ 0 mls/hr IV CONTINUOUS PRN; Protocol; Titrate PRN Reason: THIS MED IS NOT "PRN" Stop: 07/28/17 12:08 Last Admin: 06/30/17 21:10 Dose: 250 ml Doripenem 250 mg/ Sodium (Chloride) 50 mls @ 50 mls/hr IV Q8A [facility] Stop: 07/08/17 09:59 Last Admin: 07/01/17 11:45 Dose: 250 mg Influenza Virus Vaccine Quadrival (Fluzone Adlt Quad [id number] Vac 0.5 Ml Syr) 0.5 ml IM .DISCHARGE PRN PRN Reason: THIS MED IS NOT "PRN" Stop: 07/28/17 16:23 Insulin Human Regular (Humulin R (Pyxis) Insulin 100 Unit/Ml 3ml) 0 - 12 unit SUBCUT ACHSP PRN PRN Reason: Protocol Stop: 07/27/17 18:58 Lansoprazole (Prevacid 30 Mg Odt Tablet) 30 mg PO DAILY [facility] Stop: 07/27/17 09:59 Last Admin: 07/01/17 11:52 Dose: 30 mg Levothyroxine Sodium (Synthroid 0.05 Mg Tablet) 0.05 mg PO DAILY [facility] Stop: 07/28/17 09:59 Last Admin: 07/01/17 11:52 Dose: 0.05 mg Lubiprostone (Amitiza 24 Mcg Capsule) 24 mcg PO BID [facility] Stop: 07/27/17 09:59 Last Admin: 07/01/17 11:52 Dose: 24 mcg Medroxyprogesterone Acetate (Provera 10 Mg Tablet) 10 mg PO DAILY [facility] Stop: 07/27/17 09:59 Last Admin: 07/01/17 11:52 Dose: 10 mg Sodium Chloride (Saline Flush 2.5 Ml Monoject Prefil Syrin) 2.5 ml IV Q8 DEBBY Stop: 07/27/17 05:59 Last Admin: 07/01/17 05:13 Dose: Not Given - Allergies Allergies/Adverse Reactions: hydrocodone bitartrate [From Vicodin] Allergy (Verified 06/26/17 18:25) Hives hydromorphone HCl [From Dilaudid] Allergy (Verified 06/26/17 18:25) Hives levofloxacin [From Levaquin] Allergy (Verified 06/26/17 18:25) Hives oxycodone HCl [From Percocet] Allergy (Verified 06/26/17 18:25) Hives tramadol [Tramadol] Allergy (Verified 06/26/17 18:25) Hives - Diet/Activity Discharge Diet: Cardiac, Diabetic Hospital Course Hospital Course: Patient 42-year-old very unfortunate young female with multiple comorbid conditions including chronic systolic and diastolic heart failure, chronic kidney disease stage IV, nephrotic syndrome due to focal segmental glomerularsclerosis, cardiorenal syndrome she presented on 06/27/2017 with progressive shortness of breath, lower extremity leg swelling, decompensated chronic diastolic and systolic heart failure. She has ongoing persistent vaginal bleeding, despite being on Provera. She was evaluated for this condition by the sustainability coordinator but she was found not to be a good candidate for surgery because of multiple comorbid conditions including cardiomyopathy, chronic kidney disease stage IV nephrotic syndrome. She was admitted in this hospital on 05/05/2017 for decompensated chronic systolic heart failure at the time she was treated with furosemide infusion and a 2D echo was done at a time that showed severely depressed ejection fraction of left ventricle estimated at 25%. On admission the blood pressure was elevated she was started on Lasix infusion at 5 mg/h, and she was continue on beta-bear, and entresto. This was complicated with hypotension requiring dopamine and dobutamine to maintain adequate blood pressure, the entresto and the Coreg were held. On admission she had a blistering ulcer on the left leg the ulcer was due to chronic venous hypertension from chronic CHF and pulmonary hypertension. The ulcer was complicated with cellulitis and she was started on IV antibiotic today doripenem. She also had arterial Doppler done of the lower extremities. She was seen by cardiology service, Dr. Dozier, nephrology, Dr. Sam Carlin. Dr. Dozier is recommending that patient be transfer to tertiary care center. I called [facility] today, patient is well-known to them, she was accepted in transfer. She was seen by sustainability coordinator regarding the uterine bleeding and basically the sustainability coordinator seems not to have any more to offer the patient. transvaginal ultrasound was done that showed normal thickness of the uterus Physical Exam Vital Signs: Temp Pulse Resp BP Pulse Ox 97.6 F 98 17 97/79 L 97 07/01/17 04:12 07/01/17 07:00 07/01/17 04:12 07/01/17 04:12 07/01/17 04:12 Intake & Output 06/30/17 07/01/17 07/02/17 06:59 06:59 06:59 Intake Total 1281 2703 Output Total 1500 3600 Balance -219 -897 Weight 116.3 kg 113.6 kg General appearance: PRESENT: mild distress Eye exam: PRESENT: PERRLA Respiratory exam: PRESENT: decreased breath sounds Cardiovascular exam: PRESENT: +S1, +S2, systolic murmur Pulses: PRESENT: +1 pedal pulses bilateral GI/Abdominal exam: PRESENT: soft, other - Abdomen wall edema Extremities exam: PRESENT: pedal edema - There is redness of the left leg from the lower leg to the thigh, there are 2 ulcers on the lower leg,oval shaped, other Neurological exam: PRESENT: alert, CN II-XII grossly intact Skin exam: PRESENT: erythema Results Laboratory Results: 07/01/17 10:20 07/01/17 10:20 07/01/17 07/01/17 10:20 10:20 WBC 14.5 H RBC 5.02 Hgb 13.9 Hct 42.8 MCV 85 MCH 27.7 MCHC 32.4 RDW 18.9 H Plt Count 164 Seg Neutrophils % Not Reportable Lymphocytes % Not Reportable Monocytes % Not Reportable Eosinophils % Not Reportable Basophils % Not Reportable Absolute Neutrophils Not Reportable Absolute Lymphocytes Not Reportable Absolute Monocytes Not Reportable Absolute Eosinophils Not Reportable Absolute Basophils Not Reportable Sodium 136.6 L Potassium 3.5 L Chloride 104 Carbon Dioxide 26 Anion Gap 7 BUN 67 H Creatinine 2.68 H Est GFR ( Amer) 24 L Est GFR (Non-Af Amer) 19 L Glucose 86 Calcium 8.3 L 06/27/17 06/27/17 06/27/17 05:25 05:25 11:57 Creatine Kinase 431 H 426 H CK-MB (CK-2) 6.68 H Troponin I 0.071 06/27/17 06/27/17 06/27/17 11:57 17:35 17:35 Creatine Kinase 413 H CK-MB (CK-2) 7.47 H 5.63 H Troponin I 0.073 0.067 Impressions: Transvaginal US 06/29/17 00:00 IMPRESSION: Normal size uterus. Endometrial stripe 6 mm in thickness. Ovaries not visualized. Renal Ultrasound 06/29/17 15:22 IMPRESSION: Very limited study. No hydronephrosis. Moderate right pleural effusion Chest X-Ray 06/30/17 10:58 IMPRESSION: Stable cardiomegaly. No acute infiltrates.
[2017-07-01 20:29] VITALS: BP 123/88
--- NOTE | 2017-07-02 15:20 | XCELERA REPORT ---
[address] [address] Lower Extremity Arterial Evaluation Name: BERONICA YEUNG Age: 42 yrs Gender: Female : 1975 Patient Status: Inpatient Patient Location: [address] [place], [place] [address] Study Date: 07/01/2017 10:11 AM Procedure: A color flow and duplex scan of the lower extremity arteries was performed on the left with velocity and waveform anaylsis. Reason For Study: decrease circulation LLE Ordering Physician: VU GUZMAN Performed By: Yesenia Manzano Measurements and Calculations Right Left BIT SHARPENER OPERATOR PSV 137.5 cm/sec Prox PFA PSV -85.1 cm/sec Prox SFA PSV 108.1 cm/sec Mid SFA PSV -107.0 cm/sec Dist SFA PSV -72.9 cm/sec Prox Pop A PSV 91.7 cm/sec Dist AMPARO PSV 78.2 cm/sec Dist MEDICAID BILLING CLERK PSV -45.5 cm/sec Drew Pedis PSV 66.4 37.9 cm/sec Right Side Arterial Evaluation Biphaisc signal in the Dorsalisl Pedis. Left Side Arterial Evaluation Normal velocity and triphasic waveforms noted in the Common Femoral artery. Biphasic thereafter to the infrageniculate vessels. Some vessel wall calcification noted. 0-19% stenosis at the Femoral artery. Ankle Brachial index was not obtainable due to pain.. Interpretation Summary Mild hemodynamically significant lesions in the left lower extremity only, on duplex imaging, at rest. : VU GUZMAN > [employer]
== END 2017-07-01 22:00 | disposition short-term general hospital (02) | DRG 291 ==
LOC: ER 18:11 → UNDOADMIN 06-27 01:03 → EH 06-27 01:03 → 3N 06-27 03:09
PROVIDERS: ADMIT Internal Medicine; ATTEND Internal Medicine
DX: I13.0 Hypertensive heart and chronic kidney disease with heart failure and stage 1 through stage 4 chronic kidney disease, or unspecified chronic kidney disease (principal); I50.43 Acute on chronic combined systolic (congestive) and diastolic (congestive) heart failure; R57.0 Cardiogenic shock; N18.4 Chronic kidney disease, stage 4 (severe); L03.116 Cellulitis of left lower limb; I87.332 Chronic venous hypertension (idiopathic) with ulcer and inflammation of left lower extremity; L97.921 Non-pressure chronic ulcer of unspecified part of left lower leg limited to breakdown of skin; E11.22 Type 2 diabetes mellitus with diabetic chronic kidney disease; N26.9 Renal sclerosis, unspecified; I27.20 Pulmonary hypertension, unspecified; E02 Subclinical iodine-deficiency hypothyroidism; I42.9 Cardiomyopathy, unspecified; I34.0 Nonrheumatic mitral (valve) insufficiency; I95.9 Hypotension, unspecified; G89.29 Other chronic pain; N93.8 Other specified abnormal uterine and vaginal bleeding; E66.01 Morbid (severe) obesity due to excess calories; D75.1 Secondary polycythemia; G47.30 Sleep apnea, unspecified; E78.5 Hyperlipidemia, unspecified; I25.2 Old myocardial infarction; K21.9 Gastro-esophageal reflux disease without esophagitis; F32.9 Major depressive disorder, single episode, unspecified; Z95.810 Presence of automatic (implantable) cardiac defibrillator; Z95.5 Presence of coronary angioplasty implant and graft; Z79.899 Other long term (current) drug therapy; Z88.1 Allergy status to other antibiotic agents; Z88.6 Allergy status to analgesic agent; Z91.19 Patient's noncompliance with other medical treatment and regimen; Z79.82 Long term (current) use of aspirin; Z68.38 Body mass index [BMI] 38.0-38.9, adult
CPT/HCPCS: 36415; 36600; 51702; 71010; 76775; 76830; 80048; 80053; 80061; 80076; 81001; 82550; 82553; 82803; 82962; 83036; 83735; 83880; 84439; 84443; 84484; 85025; 85610; 87040; 87077; 87086; 87186; 93005; 93010; 93926; 94660; 96374; 96375; 99285; J1265; J1267; J1644; J1815; J1940; J2270; J3490; J7050

== ENCOUNTER 2018-04-18 07:30 | Inpatient (IN) | payer MEDICARE, MEDICAID ==
[2018-04-18] MEDS ORDERED: FUROSEMIDE INJ/PF 40 MG/4 ML SDV IV ONE ×2 (07:55→14:47)
[2018-04-18 08:30] LABS: HEMATOCRIT 40.3 % (36.0-47.0); HEMOGLOBIN 12.9 g/dL (12.0-15.5); MEAN CORPUSCULAR HEMOGLOBIN 26.8 pg (27.0-33.4); MEAN CORPUSCULAR VOLUME 84 fl (80-97); PLATELET COUNT 237 10^3/uL (150-450); RED BLOOD COUNT 4.83 10^6/uL (3.72-5.28); RED CELL DISTRIBUTION WIDTH 19.1 % (11.5-14.0); WHITE BLOOD COUNT 4.3 10^3/uL (4.0-10.5)
[2018-04-18 08:40] LABS: INTERNATIONAL RATION (INR) 1.07; PARTIAL THROMBOPLASTIN TIME 30.1 SEC (23.5-35.8); PROTHROMBIN TIME 14.4 SEC (11.4-15.4)
[2018-04-18 08:46] LABS: APPEARANCE,URINE CLEAR; BILIRUBIN,URINE NEGATIVE (NEGATIVE); COLOR,URINE YELLOW; GLUCOSE, URINE NEGATIVE (NEGATIVE); KETONES,URINE NEGATIVE (NEGATIVE); LEUKOCYTE ESTERASE,URINE NEGATIVE (NEGATIVE); NITRITE,URINE NEGATIVE (NEGATIVE); PROTEIN,URINE 30 mg/dL (NEGATIVE); UROBILINOGEN,URINE NEGATIVE mg/dL (<2.0)
--- NOTE | 2018-04-18 08:46 | ER Document Report ---
ED Respiratory Problem - General Chief Complaint: Respiratory Distress Stated Complaint: DIFFICULTY BREATHING Time Seen by Provider: 04/18/18 07:53 Mode of Arrival: Medic Information source: Patient Notes: 43-year-old female with CHF (systolic & diastolic), CAD, stents, mitral valve regurgitation, renal insufficiency, diabetes type 2, cardiomyopathy, systolic implanted pacer defibrillator better(battery changed 1 month ago), came in acute respiratory distress with tachypnea over 30 and pitting peripheral edema up into her abdomen. She states she has been breathing like this for 1 week. Denies chest pain. TRAVEL OUTSIDE OF THE [place] IN LAST 30 DAYS: No - Related Data Allergies/Adverse Reactions: hydrocodone bitartrate [From Vicodin] Allergy (Verified 06/26/17 18:25) Hives hydromorphone HCl [From Dilaudid] Allergy (Verified 06/26/17 18:25) Hives levofloxacin [From Levaquin] Allergy (Verified 06/26/17 18:25) Hives oxycodone HCl [From Percocet] Allergy (Verified 06/26/17 18:25) Hives tramadol [Tramadol] Allergy (Verified 06/26/17 18:25) Hives Past Medical History - General Information source: Patient - Social History Smoking Status: Former Smoker Frequency of alcohol use: None Drug Abuse: None Lives with: Family Family History: None, Reviewed & Not Pertinent, Hypertension Patient has suicidal ideation: No Patient has homicidal ideation: No - Past Medical History Cardiac Medical History: Reports: Hx Congestive Heart Failure - Chronic systolic and diastolic heart failure, Hx Coronary Artery Disease, Hx Heart Attack, Hx Hypertension Pulmonary Medical History: Denies: Hx Tuberculosis Endocrine Medical History: Reports: Hx Diabetes Mellitus Type 2 - non compliant (pt has snacks in her suitcase etc) Renal/ Medical History: Reports: Hx Renal Insufficiency. Denies: Hx Peritoneal Dialysis GI Medical History: Reports: Hx Gastroesophageal Reflux Disease Skin Medical History: Reports Hx Cellulitis - Left upper extremity cellulitis week and a half ago Psychiatric Medical History: Reports: Hx Depression Past Surgical History: Reports: Hx Cardiac Catheterization - stent x1, Hx Cardiac Surgery - pace/defib, Hx Coronary Stent, Hx Pacemaker - AICD - Immunizations Hx Diphtheria, Pertussis, Tetanus Vaccination: No Hx Pneumococcal Vaccination: 06/28/13 Review of Systems - Review of Systems Constitutional: See HPI EENT: No symptoms reported Cardiovascular: No symptoms reported Respiratory: See HPI Gastrointestinal: No symptoms reported Genitourinary: No symptoms reported Female Genitourinary: No symptoms reported Musculoskeletal: No symptoms reported Skin: No symptoms reported Hematologic/Lymphatic: No symptoms reported Neurological/Psychological: No symptoms reported Physical Exam - Vital signs Vitals: Resp Pulse Ox 25 H 99 04/18/18 07:37 04/18/18 07:37 Interpretation: Hypertensive, Tachypneic - General General appearance: Alert Notes: chronically ill, breathing fast and hard to maintain pulse ox - HEENT Head: Normocephalic, Atraumatic Eyes: Normal Pupils: PERRL Mucous membranes: Dry Neck: Supple. No: Lymphadenopathy - Respiratory Respiratory status: Tachypnea, Tripod position Chest status: Nontender Breath sounds: Normal. No: Rales, Wheezing Chest palpation: Normal - Cardiovascular Rhythm: Regular Heart sounds: Normal auscultation Murmur: No - Abdominal Inspection: Normal, Other - pitting edema to lower 1/2 abdomen Distension: No distension Bowel sounds: Normal Tenderness: Nontender Organomegaly: No organomegaly - Back Back: Normal, Nontender - Extremities General upper extremity: Normal inspection, Nontender, Normal color, Normal ROM , Normal temperature General lower extremity: Nontender, Edema - pitting bilateral legs, Normal color , Normal temperature. No: Andrew's sign - Neurological Neuro grossly intact: Yes Cognition: Normal Orientation: AAOx4 [place] Coma Scale Eye Opening: Spontaneous [place] Coma Scale Verbal: Oriented Vince Coma Scale Motor: Obeys Commands Vince Coma Scale Total: 15 Speech: Normal Motor strength normal: LUE, RUE, LLE, RLE Sensory: Normal - Psychological Associated symptoms: Normal affect, Normal mood - Skin Skin Temperature: Warm Skin Moisture: Dry Skin Color: Normal Skin irregularity: negative: Rash Course - Re-evaluation Re-evalutation: 04/18/18 08:44 diuresing well, feels better with the bipap, able to recline some on the bed. Pt had battery change 1 month ago in [place]. 04/18/18 09:36 Patient has some low back pain I will give her a small dose of morphine. 04/18/18 09:42 Chest x-ray is consistent with congestive heart failure however a superimposed infectious process cannot be excluded per radiologist. 04/18/18 10:[address] jaimes who is covering for her PCP dr monte, he will admit the patient to [facility]. BNP is elevated and creatinine is slightly elevated. Troponin is actually below her baseline. Patient feels a lot better and is resting, stable vital signs. - Vital Signs Vital signs: Temp Pulse Resp BP Pulse Ox 98.6 F 20 159/114 H 94 04/18/18 07:48 04/18/18 10:01 04/18/18 10:00 04/18/18 10:01 - Laboratory Result Diagrams: 04/18/18 08:15 04/18/18 09:40 Laboratory results interpreted by me: 04/18/18 04/18/18 04/18/18 08:15 08:15 08:25 MCH 26.8 L RDW 19.1 H Seg Neuts % (Manual) 81 H Monocytes % (Manual) 2 L D-Dimer 2.00 H Chloride BUN Creatinine Est GFR ( Amer) Est GFR (Non-Af Amer) Alkaline Phosphatase Creatine Kinase NT-Pro-B Natriuret Pep Total Protein Albumin Urine Protein 30 H 04/18/18 04/18/18 09:40 09:40 MCH RDW Seg Neuts % (Manual) Monocytes % (Manual) D-Dimer Chloride 109 H BUN 29 H Creatinine 1.64 H Est GFR ( Amer) 41 L Est GFR (Non-Af Amer) 34 L Alkaline Phosphatase 163 H Creatine Kinase 407 H NT-Pro-B Natriuret Pep 06630 H Total Protein 5.6 L Albumin 3.1 L Urine Protein Discharge - Discharge Clinical Impression: Shortness of breath, Peripheral edema CHF exacerbation Qualifiers: Heart failure type: unspecified Qualified Code(s): I50.9 - Heart failure, unspecified Low back pain Qualifiers: Chronicity: unspecified Back pain laterality: unspecified Sciatica presence: without sciatica Qualified Code(s): M54.5 - Low back pain Pneumonia Qualifiers: Aspiration pneumonia type: unspecified Laterality: unspecified laterality Lung location: unspecified part of lung Condition: Stable Disposition: ADMITTED INPATIENT Referrals: VU MONTE MD [Primary Care Provider] - Follow up as needed
[2018-04-18 08:47] LABS: VENOUS BLOOD BASE EXCESS -0.2 mmol/L; VENOUS BLOOD PCO2 37.9 mmHg (35-63); VENOUS BLOOD PH 7.42 (7.30-7.42)
--- NOTE | 2018-04-18 08:57 | RADIOLOGY REPORT (SQ) ---
EXAM DESCRIPTION: CHEST SINGLE VIEW COMPLETED DATE/TIME: 04/18/2018 8:47 am REASON FOR STUDY: chf, extreme sob COMPARISON: 06/30/2017 EXAM PARAMETERS: NUMBER OF VIEWS: One view. TECHNIQUE: Single frontal radiographic view of the chest acquired. RADIATION DOSE: NA LIMITATIONS: None. FINDINGS: LUNGS AND PLEURA: Bilateral pleural effusions, right greater than left. Patchy airspace o pacities in the lung bases bilaterally. MEDIASTINUM AND HILAR STRUCTURES: Unchanged HEART AND VASCULAR STRUCTURES: Stable cardiomegaly BONES: No acute findings. HARDWARE: Interval change of the left chest wall cardiac device OTHER: No other significant finding. IMPRESSION: Findings consistent with congestive heart failure, however a superimposed infectious pro cess cannot be excluded. TECHNICAL DOCUMENTATION: JOB ID: [id number] [employer]- All Rights Reserved Reading location - IP/workstation name: [email or web address]
[2018-04-18 09:03] LABS: ABSOLUTE LYMPHOCYTES# (MANUAL) 0.6 10^3/uL (0.5-4.7); ABSOLUTE MONOCYTES # (MANUAL) 0.1 10^3/uL (0.1-1.4); ABSOLUTE NEUTROPHILS# (MANUAL) 3.5 10^3/uL (1.7-8.2); ANISOCYTOSIS 2+; BASOPHILS % (MANUAL) 0 % (0-2); EOSINOPHILS % (MANUAL) 2 % (0-6); HYPOCHROMASIA SLIGHT; LYMPHOCYTES % (MANUAL) 15 % (13-45); MONOCYTES % (MANUAL) 2 % (3-13); OVALOCYTES SLIGHT; PLATELET COMMENT ADEQUATE; POIKILOCYTOSIS SLIGHT; SEGMENTED NEUTROPHILS % (MAN) 81 % (42-78); TOTAL CELLS COUNTED 100
[2018-04-18] MEDS ORDERED: MORPHINE SULFATE 10 MG/ML INJ IV ONE (09:36)
[2018-04-18] MEDS ORDERED: CEFTRIAXONE 1 GM/D5W RTU 50 ML IV ONE (09:37)
[2018-04-18] MEDS ORDERED: DIPHENHYDRAMINE HCL 50 MG/ML VIAL IV ONE (09:49)
--- NOTE | 2018-04-18 09:55 | EKG REPORT ---
SEVERITY:- ABNORMAL ECG - ATRIAL-SENSED VENTRICULAR-PACED RHYTHM : Confirmed by: Megan Dozier 18-Apr-2018 09:54:22
[2018-04-18 10:14] LABS: ALANINE AMINOTRANSFERASE 24 U/L (9-52); ALBUMIN 3.1 g/dL (3.5-5.0); ALKALINE PHOSPHATASE 163 U/L (38-126); ANION GAP 10 (5-19); ASPARTATE AMINO TRANSFERASE 21 U/L (14-36); BILIRUBIN,DIRECT 0.3 mg/dL (0.0-0.4); BILIRUBIN,TOTAL 0.8 mg/dL (0.2-1.3); BLOOD UREA NITROGEN 29 mg/dL (7-20); CALCIUM 8.6 mg/dL (8.4-10.2); CARBON DIOXIDE 26 mmol/L (22-30); CHLORIDE 109 mmol/L (98-107); CREATINE KINASE 407 U/L (30-135); GLUCOSE 94 mg/dL (75-110); POTASSIUM 3.6 mmol/L (3.6-5.0); SODIUM 144.6 mmol/L (137-145); TOTAL PROTEIN 5.6 g/dL (6.3-8.2)
[2018-04-18 10:26] LABS: CREATINE KINASE MB 3.35 ng/mL (<4.55)
[2018-04-18 10:27] LABS: TROPONIN I 0.045 ng/mL
[2018-04-18] MEDS ORDERED: CEFTRIAXONE SODIUM 1,000 MG in DEXTROSE 5%-WATER 50 ML IV ONE (11:00)
--- NOTE | 2018-04-18 18:28 | PDOC H&P ---
History of Present Illness Admission Date/PCP: 04/18/18 12:14 VU GUZMAN MD Patient complains of: Difficulty with breathing History of Present Illness: BERONICA YEUNG is a 43 year old female of Dr Guzman who presented to the Ed with complain of worsening difficulty with her breathing over last 7 days. She claimed associated epigastric region chest pain without radiation into her upper extremities or associated diaphoresis, palpitation, or dizziness. She has extensive cardiac disease history including systolic CHF, CAD s/p stent angioplasty, cardiomyopathy s/p AICD with recent change of battery. Her initial evaluation in the ED was remarkable for tachypnea and bilateral pitting pedal edema. She was initially treated with IV Furosemide and BiPAP support with improvement in her symptoms. Her laboratory evaluation was suggestive of acute decompensation in cardiac function with elevated NT-Pro BNP and elevated D- Dimmer. Her morbidities include Chronic systolic and diastolic heart failure, Coronary Artery Disease with Old CO and stent angioplasty, Hypertension, Diabetes Mellitus Type 2 - non compliant, Renal Insufficiency, Gastroesophageal Reflux Disease, and Depression. She was advised hospitalization for further evaluation and management. Past Medical History Cardiac Medical History: Reports: Congestive Heart Failure - Chronic systolic and diastolic heart failure, Coronary Artery Disease, Myocardial Infarction, Hypertension Pulmonary Medical History: Denies: Tuberculosis Neurological Medical History: Denies: Seizures Endocrine Medical History: Reports: Diabetes Mellitus Type 2 - non compliant ( pt has snacks in her suitcase etc) GI Medical History: Reports: Gastroesophageal Reflux Disease Psychiatric Medical History: Reports: Depression Past Surgical History Past Surgical History: Reports: Cardiac Catheterization - stent x1, Coronary Stent, Pacemaker - AICD Denies: Hysterectomy Social History Lives with: Family Smoking Status: Former Smoker Frequency of Alcohol Use: None Hx Recreational Drug Use: No Drugs: None Hx Prescription Drug Abuse: No - Advance Directive Resuscitation Status: Full Code Family History Family History: None, Reviewed & Not Pertinent, Hypertension Parental Family History Reviewed: Yes Children Family History Reviewed: Yes Sibling(s) Family History Reviewed.: Yes Medication/Allergy Home Medications: RX: Allopurinol [Zyloprim 100 mg Tablet] 100 mg PO DAILY 11/25/16 RX: Docusate Sodium [Colace 100 mg Capsule] 100 mg PO BIDP PRN 11/25/16 RX: Omeprazole 40 mg PO DAILY 11/25/16 RX: Cholecalciferol (Vitamin D3) [Vitamin D3] 4,000 unit PO DAILY 05/04/17 RX: Atorvastatin Calcium [Lipitor 80 mg Tablet] 80 mg PO QHS #90 tablet Medroxyprogesterone Acet [Provera 10 mg Tablet] 10 mg PO DAILY 06/27/17 Amlodipine Besylate [Norvasc 10 mg Tablet] 10 mg PO DAILY 04/18/18 Aspirin [Aspirin EC] 81 mg PO DAILY 04/18/18 Bumetanide [Bumex 1 mg Tablet] 3 mg PO Q6AM 04/18/18 Doxepin HCl [Silenor] 6 mg PO QHS 04/18/18 Gabapentin [Neurontin 300 mg Capsule] 600 mg PO Q8 04/18/18 Hydralazine HCl [Apresoline 50 mg Tablet] 50 mg PO Q8HP PRN 04/18/18 Lutein [Natural Lutein] 20 mg PO DAILY 04/18/18 RX: Carvedilol [Coreg 12.5 mg Tablet] 12.5 mg PO Q12 04/18/18 RX: Furosemide [Lasix] 80 mg PO TID 04/18/18 RX: Isosorbide Dinitrate 60 mg PO TID@06,12,18 04/18/18 Sacubitril/Valsartan [Entresto 97 mg-103 mg Tablet] 1 each PO Q12 04/18/18 Vitamin E [Natural Vitamin E] 400 unit PO DAILY 04/18/18 Allergies/Adverse Reactions: hydrocodone bitartrate [From Vicodin] Allergy (Verified 06/26/17 18:25) Hives hydromorphone HCl [From Dilaudid] Allergy (Verified 06/26/17 18:25) Hives levofloxacin [From Levaquin] Allergy (Verified 06/26/17 18:25) Hives oxycodone HCl [From Percocet] Allergy (Verified 06/26/17 18:25) Hives tramadol [Tramadol] Allergy (Verified 06/26/17 18:25) Hives Review of Systems Constitutional: PRESENT: chills. ABSENT: as per HPI, anorexia, fatigue, fever(s ), headache(s), night sweats, weakness, weight gain, weight loss, other Eyes: ABSENT: visual disturbances Ears: ABSENT: hearing changes Nose, Mouth, and Throat: ABSENT: as per HPI, headache(s), mouth pain, sore throat, vertigo, other Cardiovascular: PRESENT: dyspnea on exertion, edema. ABSENT: as per HPI, chest pain, orthropnea, palpitations, other Respiratory: PRESENT: dyspnea. ABSENT: as per HPI, cough, hemoptysis, sputum, other Gastrointestinal: ABSENT: abdominal pain, constipation, diarrhea, hematemesis, hematochezia, nausea, vomiting Genitourinary: ABSENT: dysuria, hematuria Musculoskeletal: PRESENT: back pain Integumentary: ABSENT: rash, wounds Neurological: ABSENT: abnormal gait, abnormal speech, confusion, dizziness, focal weakness, syncope Psychiatric: ABSENT: anxiety, depression, homidical ideation, suicidal ideation Endocrine: ABSENT: cold intolerance, heat intolerance, menstrual abnormalities, polydipsia, polyuria Hematologic/Lymphatic: ABSENT: easy bleeding, easy bruising, lymphadenopathy Allergic/Immunologic: ABSENT: seasonal rhinorrhea Physical Exam Vital Signs: Temp Pulse Resp BP Pulse Ox 98.6 F 90 20 152/97 H 97 04/18/18 07:48 04/18/18 17:35 04/18/18 17:01 04/18/18 15:00 04/18/18 17:01 Intake & Output 04/17/18 04/18/18 04/19/18 06:59 06:59 06:59 Weight 104.2 kg General appearance: PRESENT: obese, severe distress - on BiPAP support Head exam: PRESENT: atraumatic, normocephalic Eye exam: PRESENT: conjunctiva pink, EOMI, PERRLA. ABSENT: scleral icterus Ear exam: PRESENT: normal external ear exam Mouth exam: PRESENT: moist, neck supple, tongue midline Neck exam: PRESENT: full ROM. ABSENT: carotid bruit, JVD, lymphadenopathy, thyromegaly Respiratory exam: PRESENT: clear to auscultation abdi, decreased breath sounds Cardiovascular exam: PRESENT: RRR, +S1, +S2, systolic murmur. ABSENT: diastolic murmur, rubs Murmur grade: 3 Pulses: PRESENT: +1 pedal pulses bilateral Vascular exam: PRESENT: normal capillary refill. ABSENT: pallor GI/Abdominal exam: PRESENT: normal bowel sounds, soft. ABSENT: distended, guarding, mass, organolmegaly, rebound, tenderness Rectal exam: PRESENT: deferred Gentrourinary exam: PRESENT: indwelling catheter Extremities exam: PRESENT: pedal edema - chronic bilateral pitting edema Musculoskeletal exam: PRESENT: deformity - related to multiple joints involvement with arthritis Neurological exam: PRESENT: alert, awake, oriented to person, oriented to place , oriented to time, oriented to situation, CN II-XII grossly intact. ABSENT: motor sensory deficit Psychiatric exam: PRESENT: appropriate affect, normal mood. ABSENT: homicidal ideation, suicidal ideation Skin exam: PRESENT: dry, warm Results Laboratory Results: I reviewed her laboratory findings on [employer] [facility] and form significnat aspect of my medical decision making. 04/18/18 12:40 Troponin I 0.042 Impressions: Chest X-Ray 04/18/18 07:53 IMPRESSION: Findings consistent with congestive heart failure, however a superimposed infectious process cannot be excluded. Assessment & Plan - Diagnosis (1) Acute on chronic combined systolic and diastolic CHF, NYHA class 3 Is this a current diagnosis for this admission?: Yes Plan: See covering admiring physician orders. (2) Cardiomyopathy Qualifiers: Cardiomyopathy type: unspecified Qualified Code(s): I42.9 - Cardiomyopathy , unspecified Is this a current diagnosis for this admission?: Yes Plan: See covering admiring physician orders. (3) CKD (chronic kidney disease) stage 3, GFR 30-59 ml/min Is this a current diagnosis for this admission?: Yes Plan: See covering admiring physician orders. 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 (5) Hypertension Qualifiers: Hypertension type: essential hypertension Qualified Code(s): I10 - Essential (primary) hypertension Is this a current diagnosis for this admission?: Yes Plan: See covering admiring physician orders. (6) Cardiac defibrillator in situ Is this a current diagnosis for this admission?: Yes Plan: See covering admiring physician orders. (7) Mitral valve regurgitation Qualifiers: Cardiac valve disease etiology: nonrheumatic Qualified Code(s): I34.0 - Nonrheumatic mitral (valve) insufficiency Is this a current diagnosis for this admission?: Yes Plan: See covering admiring physician orders. - Time Time Spent: 50 to 70 Minutes Medications reviewed and adjusted accordingly: Yes Anticipated discharge: Home with Homehealth Within: Other - Inpatient Certification Based on my medical assessment, after consideration of the patient's comorbidities, presenting symptoms, or acuity I expect that the services needed warrant INPATIENT care.: Yes I certify that my determination is in accordance with my understanding of Medicare's requirements for reasonable and necessary INPATIENT services [42 CFR 412.3e].: Yes Medical Necessity: Need Close Monitoring Due to Risk of Patient Decompensation, Need For Continuous Telemetry Monitoring, Risk of Complication if Not Cared For in Hospital Post Hospital Care: D/C [employer] Documentation - Plan Summary Plan Summary: See covering admiring physician orders.
[2018-04-18] MEDS ORDERED: HYDRALAZINE HCL 50 MG TABLET PO PRN (18:30)
[2018-04-18] MEDS ORDERED: DOCUSATE SODIUM 100 MG CAPSULE PO PRN (18:30)
[2018-04-18] MEDS ORDERED: GLUCAGON,HUMAN RECOMB 1 MG INJ IM PRN (18:38)
[2018-04-18] MEDS ORDERED: INSULIN LISPRO 100 UNIT/ML 3 ML VIAL SUBCUT PRN (18:38)
[2018-04-18] MEDS ORDERED: DEXTROSE 50%-WATER 25 GM/50 ML DISP.SYRIN IV PRN ×2 (18:38)
[2018-04-18] MEDS ORDERED: DEXTROSE 40% GEL 15 GM TUBE PO PRN ×2 (18:38)
[2018-04-18 19:49] LABS: CREATINE KINASE MB 2.57 ng/mL (<4.55); TROPONIN I 0.038 ng/mL
[2018-04-18] MEDS: GABAPENTIN 300 MG CAPSULE PO SCH (23:00)
[2018-04-18] MEDS: CARVEDILOL 12.5 MG TABLET PO SCH (23:00)
[2018-04-18] MEDS: SACUBITRIL/VALSARTAN 97 MG/103 MG TABLET PO SCH (23:19)
[2018-04-18] MEDS ORDERED: DIPHENHYDRAMINE HCL 25 MG CAPSULE PO ONE (23:45)
[2018-04-19 01:40] LABS: CREATINE KINASE MB 2.1 ng/mL (<4.55); TROPONIN I 0.039 ng/mL
[2018-04-19] MEDS ORDERED: BUMETANIDE 1 MG TABLET ONE (06:17)
[2018-04-19] MEDS: ISOSORBIDE DINITRATE 20 MG TABLET PO SCH ×3 (06:45→19:22)
[2018-04-19] MEDS: GABAPENTIN 300 MG CAPSULE PO SCH ×3 (06:45→23:37)
[2018-04-19] MEDS: BUMETANIDE 1 MG TABLET PO SCH (06:46)
[2018-04-19] MEDS: LANSOPRAZOLE 30 MG TAB.RAP.DR PO SCH (06:46)
[2018-04-19 07:14] LABS: ABSOLUTE EOSINOPHILS # (AUTO) 0.1 10^3/uL (0.0-0.6); ABSOLUTE LYMPHOCYTES (AUTO) 0.4 10^3/uL (0.5-4.7); ABSOLUTE MONOCYTES (AUTO) 0.3 10^3/uL (0.1-1.4); ABSOLUTE NEUT (AUTO) 3.6 10^3/uL (1.7-8.2); BASOPHILS % (AUTO) 1.1 % (0-2); EOSINOPHILS % (AUTO) 2.6 % (0-6); HEMATOCRIT 36.6 % (36.0-47.0); HEMOGLOBIN 11.8 g/dL (12.0-15.5); LYMPHOCYTES % (AUTO) 8.6 % (13-45); MEAN CORPUSCULAR HEMOGLOBIN 26.8 pg (27.0-33.4); MEAN CORPUSCULAR HGB CONC 32.1 g/dL (32.0-36.0); MEAN CORPUSCULAR VOLUME 83 fl (80-97); PLATELET COUNT 220 10^3/uL (150-450); RED BLOOD COUNT 4.39 10^6/uL (3.72-5.28); RED CELL DISTRIBUTION WIDTH 18.6 % (11.5-14.0); SEGMENTED NEUTROPHILS % (AUTO) 80.7 % (42-78); TOTAL CELLS COUNTED % (AUTO) 100 %; WHITE BLOOD COUNT 4.5 10^3/uL (4.0-10.5)
[2018-04-19 07:42] LABS: ALANINE AMINOTRANSFERASE 16 U/L (9-52); ALBUMIN 2.4 g/dL (3.5-5.0); ALKALINE PHOSPHATASE 127 U/L (38-126); ANION GAP 8 (5-19); ASPARTATE AMINO TRANSFERASE 15 U/L (14-36); BILIRUBIN,DIRECT 0.4 mg/dL (0.0-0.4); BILIRUBIN,TOTAL 0.4 mg/dL (0.2-1.3); BLOOD UREA NITROGEN 30 mg/dL (7-20); CALCIUM 8.2 mg/dL (8.4-10.2); CARBON DIOXIDE 23 mmol/L (22-30); CHLORIDE 111 mmol/L (98-107); CREATINE KINASE 187 U/L (30-135); GLUCOSE 95 mg/dL (75-110); POTASSIUM 3.8 mmol/L (3.6-5.0); SODIUM 142.4 mmol/L (137-145); TOTAL PROTEIN 4.7 g/dL (6.3-8.2)
[2018-04-19 07:50] LABS: CREATINE KINASE MB 2.16 ng/mL (<4.55); TROPONIN I 0.032 ng/mL
[2018-04-19] MEDS ORDERED: LUTEIN 20 MG PO SCH (10:00)
[2018-04-19] MEDS: ASPIRIN 81 MG TABLET, ENT COATED PO SCH (10:52)
[2018-04-19] MEDS: ALLOPURINOL 100 MG TABLET PO SCH (10:53)
[2018-04-19] MEDS: CARVEDILOL 12.5 MG TABLET PO SCH ×2 (10:53→23:37)
[2018-04-19] MEDS: CHOLECALCIFEROL (D3) 1,000 UNIT TABLET PO SCH (10:55)
[2018-04-19] MEDS: FUROSEMIDE 80 MG TABLET PO SCH ×3 (10:55→19:22)
[2018-04-19] MEDS: AMLODIPINE BESYLATE 10 MG TABLET PO SCH (10:55)
[2018-04-19] MEDS: SACUBITRIL/VALSARTAN 97 MG/103 MG TABLET PO SCH ×2 (10:55→23:36)
[2018-04-19] MEDS: ENOXAPARIN SODIUM INJ 40 MG/0.4 ML DISP.SYRIN SUBCUT SCH (10:56)
[2018-04-19] MEDS ORDERED: ACETAMINOPHEN 325 MG TABLET PO PRN (14:21)
--- NOTE | 2018-04-19 21:39 | PDOC PROGRESS REPORT ---
Subjective Progress Note for:: 04/19/18 Subjective:: She has severe cardiomyopathy and other comorbid conditions, she was admitted over the weekend with CHF,she complain of back pain Reason For Visit: ACUTE ON CHRONIC COMBINED CHF Physical Exam Vital Signs: Temp Pulse Resp BP Pulse Ox 98.8 F 80 16 127/74 H 98 04/19/18 12:07 04/19/18 14:00 04/19/18 12:07 04/19/18 12:07 04/19/18 12:07 Intake & Output 04/18/18 04/19/18 04/20/18 06:59 06:59 06:59 Intake Total 150 1037 Output Total 2550 1225 Balance -2400 -188 Weight 105.6 kg 105.6 kg General appearance: PRESENT: mild distress Eye exam: PRESENT: PERRLA Respiratory exam: PRESENT: crackles Cardiovascular exam: PRESENT: +S1, +S2 Murmur grade: 3 GI/Abdominal exam: PRESENT: soft Extremities exam: PRESENT: pedal edema Neurological exam: PRESENT: alert, CN II-XII grossly intact Results Laboratory Results: 04/19/18 06:50 04/19/18 06:50 04/19/18 04/19/18 06:50 06:50 WBC 4.5 RBC 4.39 Hgb 11.8 L Hct 36.6 MCV 83 MCH 26.8 L MCHC 32.1 RDW 18.6 H Plt Count 220 Seg Neutrophils % 80.7 H Lymphocytes % 8.6 L Monocytes % 7.0 Eosinophils % 2.6 Basophils % 1.1 Absolute Neutrophils 3.6 Absolute Lymphocytes 0.4 L Absolute Monocytes 0.3 Absolute Eosinophils 0.1 Absolute Basophils 0.0 Sodium 142.4 Potassium 3.8 Chloride 111 H Carbon Dioxide 23 Anion Gap 8 BUN 30 H Creatinine 1.73 H Est GFR ( Amer) 39 L Est GFR (Non-Af Amer) 32 L Glucose 95 Calcium 8.2 L Total Bilirubin 0.4 AST 15 ALT 16 Alkaline Phosphatase 127 H Total Protein 4.7 L Albumin 2.4 L 04/18/18 04/18/18 04/18/18 12:40 19:10 19:10 Creatine Kinase 270 H CK-MB (CK-2) 2.57 Troponin I 0.042 0.038 NT-Pro-B Natriuret Pep 04/19/18 04/19/18 04/19/18 00:50 00:50 06:50 Creatine Kinase 163 H 187 H CK-MB (CK-2) 2.10 Troponin I 0.039 NT-Pro-B Natriuret Pep 04/19/18 06:50 Creatine Kinase CK-MB (CK-2) 2.16 Troponin I 0.032 NT-Pro-B Natriuret Pep 38890 H Impressions: Chest X-Ray 04/18/18 07:53 IMPRESSION: Findings consistent with congestive heart failure, however a superimposed infectious process cannot be excluded. Assessment & Plan - Diagnosis (1) Acute systolic heart failure Is this a current diagnosis for this admission?: Yes Plan: continue treatment (2) Nephrotic syndrome Is this a current diagnosis for this admission?: Yes (3) Cardiomyopathy Qualifiers: Cardiomyopathy type: ischemic Qualified Code(s): I25.5 - Ischemic cardiomyopathy Is this a current diagnosis for this admission?: Yes
[2018-04-19] MEDS: TRAMADOL HCL 50 MG TABLET PO PRN (23:37)
[2018-04-19] MEDS: DIPHENHYDRAMINE HCL 25 MG CAPSULE PO PRN (23:37)
[2018-04-20] MEDS: ISOSORBIDE DINITRATE 20 MG TABLET PO SCH ×3 (05:46→17:38)
[2018-04-20] MEDS: GABAPENTIN 300 MG CAPSULE PO SCH ×3 (05:46→21:45)
[2018-04-20] MEDS: LANSOPRAZOLE 30 MG TAB.RAP.DR PO SCH (05:46)
[2018-04-20] MEDS: BUMETANIDE 1 MG TABLET PO SCH (05:47)
[2018-04-20] MEDS: CHOLECALCIFEROL (D3) 1,000 UNIT TABLET PO SCH (09:48)
[2018-04-20] MEDS: FUROSEMIDE 80 MG TABLET PO SCH ×3 (09:49→17:38)
[2018-04-20] MEDS: ALLOPURINOL 100 MG TABLET PO SCH (09:49)
[2018-04-20] MEDS: ASPIRIN 81 MG TABLET, ENT COATED PO SCH (09:49)
[2018-04-20] MEDS: ENOXAPARIN SODIUM INJ 40 MG/0.4 ML DISP.SYRIN SUBCUT SCH (09:51)
[2018-04-20] MEDS: CARVEDILOL 12.5 MG TABLET PO SCH ×2 (09:56→21:45)
[2018-04-20] MEDS: SACUBITRIL/VALSARTAN 97 MG/103 MG TABLET PO SCH ×2 (09:56→21:44)
[2018-04-20] MEDS: AMLODIPINE BESYLATE 10 MG TABLET PO SCH (10:04)
[2018-04-20] MEDS: SIMETHICONE 80 MG TAB.CHEW PO PRN ×2 (11:44→21:49)
[2018-04-20] MEDS ORDERED: LUBIPROSTONE 24 MCG CAPSULE PO PRN (13:48)
--- NOTE | 2018-04-20 16:41 | PDOC PROGRESS REPORT ---
Subjective Progress Note for:: 04/20/18 Subjective:: Patient was seen by the bedside, she complained of gas pain, back pain, abdominal distention Reason For Visit: ACUTE ON CHRONIC COMBINED CHF Physical Exam Vital Signs: Temp Pulse Resp BP Pulse Ox 98.2 F 88 16 146/97 H 96 04/20/18 12:22 04/20/18 12:22 04/20/18 12:22 04/20/18 12:22 04/20/18 12:22 Intake & Output 04/19/18 04/20/18 04/21/18 06:59 06:59 06:59 Intake Total 150 1778 237 Output Total 2550 9250 7260 Balance -9089 -181 -0861 Weight 105.6 kg 104.3 kg General appearance: PRESENT: no acute distress Eye exam: PRESENT: PERRLA Respiratory exam: PRESENT: rales Cardiovascular exam: PRESENT: +S1, +S2 Murmur grade: 3 GI/Abdominal exam: PRESENT: ascites, soft Neurological exam: PRESENT: alert, CN II-XII grossly intact Results Laboratory Results: 04/19/18 06:50 04/19/18 06:50 04/18/18 04/18/18 04/18/18 12:40 19:10 19:10 Creatine Kinase 270 H CK-MB (CK-2) 2.57 Troponin I 0.042 0.038 NT-Pro-B Natriuret Pep 04/19/18 04/19/18 04/19/18 00:50 00:50 06:50 Creatine Kinase 163 H 187 H CK-MB (CK-2) 2.10 Troponin I 0.039 NT-Pro-B Natriuret Pep 04/19/18 06:50 Creatine Kinase CK-MB (CK-2) 2.16 Troponin I 0.032 NT-Pro-B Natriuret Pep 63712 H Impressions: Chest X-Ray 04/18/18 07:53 IMPRESSION: Findings consistent with congestive heart failure, however a superimposed infectious process cannot be excluded. Assessment & Plan - Diagnosis (1) Acute systolic heart failure Is this a current diagnosis for this admission?: Yes (2) Nephrotic syndrome Is this a current diagnosis for this admission?: Yes (3) Cardiomyopathy Qualifiers: Cardiomyopathy type: ischemic Qualified Code(s): I25.5 - Ischemic cardiomyopathy Is this a current diagnosis for this admission?: Yes - Plan Summary Plan Summary: Abdominal paracentesis is ordered, consultation will be obtained from [employer] for interrogation of the AICD device
[2018-04-20 16:55] LABS: ABSOLUTE EOSINOPHILS # (AUTO) 0.2 10^3/uL (0.0-0.6); ABSOLUTE LYMPHOCYTES (AUTO) 0.5 10^3/uL (0.5-4.7); ABSOLUTE MONOCYTES (AUTO) 0.4 10^3/uL (0.1-1.4); ABSOLUTE NEUT (AUTO) 3.2 10^3/uL (1.7-8.2); EOSINOPHILS % (AUTO) 4.7 % (0-6); HEMATOCRIT 33.9 % (36.0-47.0); HEMOGLOBIN 10.7 g/dL (12.0-15.5); MEAN CORPUSCULAR HEMOGLOBIN 26.7 pg (27.0-33.4); MEAN CORPUSCULAR HGB CONC 31.7 g/dL (32.0-36.0); MEAN CORPUSCULAR VOLUME 84 fl (80-97); MONOCYTES % (AUTO) 9.4 % (3-13); PLATELET COUNT 229 10^3/uL (150-450); RED BLOOD COUNT 4.03 10^6/uL (3.72-5.28); RED CELL DISTRIBUTION WIDTH 18.9 % (11.5-14.0); SEGMENTED NEUTROPHILS % (AUTO) 73.9 % (42-78); TOTAL CELLS COUNTED % (AUTO) 100 %; WHITE BLOOD COUNT 4.3 10^3/uL (4.0-10.5)
[2018-04-20 17:00] LABS: INTERNATIONAL RATION (INR) 1.02
[2018-04-20 17:11] LABS: ALANINE AMINOTRANSFERASE 22 U/L (9-52); ALBUMIN 2.3 g/dL (3.5-5.0); ALKALINE PHOSPHATASE 121 U/L (38-126); ANION GAP 8 (5-19); ASPARTATE AMINO TRANSFERASE 13 U/L (14-36); BILIRUBIN,DIRECT 0.3 mg/dL (0.0-0.4); BILIRUBIN,TOTAL 0.3 mg/dL (0.2-1.3); BLOOD UREA NITROGEN 35 mg/dL (7-20); CALCIUM 7.7 mg/dL (8.4-10.2); CARBON DIOXIDE 25 mmol/L (22-30); CHLORIDE 110 mmol/L (98-107); GLUCOSE 103 mg/dL (75-110); POTASSIUM 3.9 mmol/L (3.6-5.0); SODIUM 143.4 mmol/L (137-145); TOTAL PROTEIN 4.5 g/dL (6.3-8.2)
[2018-04-20 17:12] LABS: ALBUMIN 2.2 g/dL (3.5-5.0); TOTAL PROTEIN 4.4 g/dL (6.3-8.2)
[2018-04-20] MEDS: TRAMADOL HCL 50 MG TABLET PO PRN ×2 (17:49→23:51)
[2018-04-20] MEDS: DIPHENHYDRAMINE HCL 25 MG CAPSULE PO PRN ×2 (17:50→23:52)
[2018-04-21] MEDS ORDERED: DIPHENHYDRAMINE HCL 25 MG CAPSULE ONE (00:02)
[2018-04-21] MEDS ORDERED: DIPHENHYDRAMINE HCL 25 MG CAPSULE PO ONE (00:15)
[2018-04-21 05:19] LABS: ABSOLUTE EOSINOPHILS # (AUTO) 0.2 10^3/uL (0.0-0.6); ABSOLUTE LYMPHOCYTES (AUTO) 0.5 10^3/uL (0.5-4.7); ABSOLUTE MONOCYTES (AUTO) 0.3 10^3/uL (0.1-1.4); ABSOLUTE NEUT (AUTO) 2.5 10^3/uL (1.7-8.2); BASOPHILS % (AUTO) 1.1 % (0-2); EOSINOPHILS % (AUTO) 5.3 % (0-6); HEMATOCRIT 33.1 % (36.0-47.0); HEMOGLOBIN 10.7 g/dL (12.0-15.5); LYMPHOCYTES % (AUTO) 13.6 % (13-45); MEAN CORPUSCULAR HGB CONC 32.3 g/dL (32.0-36.0); MEAN CORPUSCULAR VOLUME 84 fl (80-97); MONOCYTES % (AUTO) 9.2 % (3-13); PLATELET COUNT 226 10^3/uL (150-450); RED BLOOD COUNT 3.96 10^6/uL (3.72-5.28); RED CELL DISTRIBUTION WIDTH 18.6 % (11.5-14.0); SEGMENTED NEUTROPHILS % (AUTO) 70.8 % (42-78); TOTAL CELLS COUNTED % (AUTO) 100 %; WHITE BLOOD COUNT 3.6 10^3/uL (4.0-10.5)
[2018-04-21 05:40] LABS: ALANINE AMINOTRANSFERASE 21 U/L (9-52); ALBUMIN 2.3 g/dL (3.5-5.0); ALKALINE PHOSPHATASE 122 U/L (38-126); ANION GAP 9 (5-19); ASPARTATE AMINO TRANSFERASE 16 U/L (14-36); BILIRUBIN,DIRECT 0.3 mg/dL (0.0-0.4); BILIRUBIN,TOTAL 0.3 mg/dL (0.2-1.3); BLOOD UREA NITROGEN 36 mg/dL (7-20); CALCIUM 7.9 mg/dL (8.4-10.2); CARBON DIOXIDE 23 mmol/L (22-30); CHLORIDE 110 mmol/L (98-107); GLUCOSE 78 mg/dL (75-110); POTASSIUM 4.1 mmol/L (3.6-5.0); SODIUM 142.2 mmol/L (137-145); TOTAL PROTEIN 4.6 g/dL (6.3-8.2)
--- NOTE | 2018-04-21 09:43 | RADIOLOGY REPORT (SQ) ---
EXAM DESCRIPTION: U/S ABDOMEN LIMITED W/O DOP COMPLETED DATE/TIME: 04/21/2018 9:34 am REASON FOR STUDY: ascities COMPARISON: April 2017 TECHNIQUE: Sonographic sections through the abdomen were obtained in varying positions. LIMITATIONS: None. FINDINGS: No intra-abdominal ascitic fluid was identified. For this reason a paracentesis was not p erformed. IMPRESSION: No intra-abdominal ascitic fluid was identified. TECHNICAL DOCUMENTATION: JOB ID: [id number] [employer]- All Rights Reserved Reading location - IP/workstation name: [email or web address]
[2018-04-21] MEDS: ALLOPURINOL 100 MG TABLET PO SCH (09:52)
[2018-04-21] MEDS: CARVEDILOL 12.5 MG TABLET PO SCH ×2 (09:52→22:34)
[2018-04-21] MEDS: FUROSEMIDE 80 MG TABLET PO SCH ×3 (09:52→18:03)
[2018-04-21] MEDS: CHOLECALCIFEROL (D3) 1,000 UNIT TABLET PO SCH (09:57)
[2018-04-21] MEDS: SACUBITRIL/VALSARTAN 97 MG/103 MG TABLET PO SCH ×2 (09:57→22:34)
[2018-04-21] MEDS: SIMETHICONE 80 MG TAB.CHEW PO PRN (12:15)
[2018-04-21] MEDS: ISOSORBIDE DINITRATE 20 MG TABLET PO SCH ×3 (13:14→19:49)
[2018-04-21] MEDS: GABAPENTIN 300 MG CAPSULE PO SCH ×3 (13:15→22:34)
[2018-04-21 17:07] LABS: INTERNATIONAL RATION (INR) 0.98; PROTHROMBIN TIME 13.5 SEC (11.4-15.4)
[2018-04-21] MEDS: TRAMADOL HCL 50 MG TABLET PO PRN (18:05)
[2018-04-21] MEDS: DIPHENHYDRAMINE HCL 25 MG CAPSULE PO PRN (18:06)
[2018-04-21] MEDS: BUMETANIDE 1 MG TABLET PO SCH (19:49)
[2018-04-21] MEDS: LANSOPRAZOLE 30 MG TAB.RAP.DR PO SCH (19:49)
[2018-04-21] MEDS: ASPIRIN 81 MG TABLET, ENT COATED PO SCH (19:50)
[2018-04-21] MEDS: ENOXAPARIN SODIUM INJ 40 MG/0.4 ML DISP.SYRIN SUBCUT SCH (19:50)
[2018-04-21] MEDS: AMLODIPINE BESYLATE 10 MG TABLET PO SCH (19:50)
--- NOTE | 2018-04-21 20:44 | PDOC PROGRESS REPORT ---
Subjective Progress Note for:: 04/21/18 Subjective:: She was at radiology today for abdominal paracentesis but on the ultrasound guidance no ascites was demonstrated so this was not done. She has bilateral pleural effusion, we will schedule for thoracentesis in the morning hopefully discharge home quickly Reason For Visit: ACUTE ON CHRONIC COMBINED CHF Physical Exam Vital Signs: Temp Pulse Resp BP Pulse Ox 97.4 F 80 21 H 113/62 98 04/21/18 19:08 04/21/18 19:08 04/21/18 19:08 04/21/18 19:08 04/21/18 20:02 Intake & Output 04/20/18 04/21/18 04/22/18 06:59 06:59 06:59 Intake Total 1778 1092 950 Output Total 1105 3983 8983 Balance -699 -3092 -032 Weight 104.3 kg 104 kg General appearance: PRESENT: no acute distress Eye exam: PRESENT: PERRLA Respiratory exam: PRESENT: clear to auscultation abdi Cardiovascular exam: PRESENT: +S1, +S2 Murmur grade: 3 GI/Abdominal exam: PRESENT: soft Neurological exam: PRESENT: alert, CN II-XII grossly intact Results Laboratory Results: 04/21/18 04:42 04/21/18 04:42 04/21/18 04/21/18 04/21/18 04:42 04:42 16:35 WBC 3.6 L RBC 3.96 Hgb 10.7 L Hct 33.1 L MCV 84 MCH 27.0 MCHC 32.3 RDW 18.6 H Plt Count 226 Seg Neutrophils % 70.8 Lymphocytes % 13.6 Monocytes % 9.2 Eosinophils % 5.3 Basophils % 1.1 Absolute Neutrophils 2.5 Absolute Lymphocytes 0.5 Absolute Monocytes 0.3 Absolute Eosinophils 0.2 Absolute Basophils 0.0 Sodium 142.2 Potassium 4.1 Chloride 110 H Carbon Dioxide 23 Anion Gap 9 BUN 36 H Creatinine 2.01 H Est GFR ( Amer) 33 L Est GFR (Non-Af Amer) 27 L Glucose 78 Calcium 7.9 L Total Bilirubin 0.3 AST 16 ALT 21 Alkaline Phosphatase 122 Total Protein 4.6 L 5.2 L Albumin 2.3 L 04/18/18 04/18/18 04/18/18 12:40 19:10 19:10 Creatine Kinase 270 H CK-MB (CK-2) 2.57 Troponin I 0.042 0.038 NT-Pro-B Natriuret Pep 04/19/18 04/19/18 04/19/18 00:50 00:50 06:50 Creatine Kinase 163 H 187 H CK-MB (CK-2) 2.10 Troponin I 0.039 NT-Pro-B Natriuret Pep 04/19/18 06:50 Creatine Kinase CK-MB (CK-2) 2.16 Troponin I 0.032 NT-Pro-B Natriuret Pep 52292 H Impressions: Chest X-Ray 04/18/18 07:53 IMPRESSION: Findings consistent with congestive heart failure, however a superimposed infectious process cannot be excluded. Abdomen Ultrasound 04/21/18 16:35 IMPRESSION: No intra-abdominal ascitic fluid was identified. Assessment & Plan - Diagnosis (1) Acute systolic heart failure Is this a current diagnosis for this admission?: Yes (2) Nephrotic syndrome Is this a current diagnosis for this admission?: Yes (3) Cardiomyopathy Qualifiers: Cardiomyopathy type: ischemic Qualified Code(s): I25.5 - Ischemic cardiomyopathy Is this a current diagnosis for this admission?: Yes (4) Low back pain Qualifiers: Chronicity: unspecified Back pain laterality: unspecified Sciatica presence: without sciatica Qualified Code(s): M54.5 - Low back pain Is this a current diagnosis for this admission?: Yes (5) Acute on chronic combined systolic and diastolic CHF, NYHA class 3 Is this a current diagnosis for this admission?: Yes (6) Anasarca Is this a current diagnosis for this admission?: Yes (7) Chronic kidney disease, stage 4 (severe) Is this a current diagnosis for this admission?: Yes (8) Focal segmental glomerulosclerosis Is this a current diagnosis for this admission?: Yes (9) Hypertension Qualifiers: Hypertension type: essential hypertension Qualified Code(s): I10 - Essential (primary) hypertension Is this a current diagnosis for this admission?: Yes (11) Mitral regurgitation Qualifiers: Cardiac valve disease etiology: etiology unspecified Qualified Code(s): I34.0 - Nonrheumatic mitral (valve) insufficiency Is this a current diagnosis for this admission?: Yes (12) Type 2 diabetes mellitus Qualifiers: Diabetes mellitus assisted insulin use: without computer terminal operator use Diabetes mellitus complication status: with unspecified complications Qualified Code(s) : E11.8 - Type 2 diabetes mellitus with unspecified complications Is this a current diagnosis for this admission?: Yes
[2018-04-22] MEDS: TRAMADOL HCL 50 MG TABLET PO PRN ×3 (00:05→21:24)
[2018-04-22] MEDS: DIPHENHYDRAMINE HCL 25 MG CAPSULE PO PRN ×3 (00:05→21:25)
[2018-04-22] MEDS: CHOLECALCIFEROL (D3) 1,000 UNIT TABLET PO SCH (11:31)
[2018-04-22] MEDS: ALLOPURINOL 100 MG TABLET PO SCH (11:32)
[2018-04-22] MEDS: CARVEDILOL 12.5 MG TABLET PO SCH ×2 (11:32→21:25)
[2018-04-22] MEDS: AMLODIPINE BESYLATE 10 MG TABLET PO SCH (11:32)
[2018-04-22] MEDS: SACUBITRIL/VALSARTAN 97 MG/103 MG TABLET PO SCH ×2 (11:32→21:24)
[2018-04-22] MEDS: FUROSEMIDE 80 MG TABLET PO SCH ×3 (11:32→18:00)
[2018-04-22] MEDS: ASPIRIN 81 MG TABLET, ENT COATED PO SCH (11:33)
[2018-04-22] MEDS: ENOXAPARIN SODIUM INJ 40 MG/0.4 ML DISP.SYRIN SUBCUT SCH (11:34)
[2018-04-22] MEDS: GABAPENTIN 300 MG CAPSULE PO SCH ×3 (14:51→21:25)
[2018-04-22] MEDS: ISOSORBIDE DINITRATE 20 MG TABLET PO SCH ×3 (14:52→20:24)
[2018-04-22 19:08] LABS: ABSOLUTE EOSINOPHILS # (AUTO) 0.3 10^3/uL (0.0-0.6); ABSOLUTE LYMPHOCYTES (AUTO) 0.5 10^3/uL (0.5-4.7); ABSOLUTE MONOCYTES (AUTO) 0.4 10^3/uL (0.1-1.4); ABSOLUTE NEUT (AUTO) 4.4 10^3/uL (1.7-8.2); BASOPHILS % (AUTO) 0.8 % (0-2); EOSINOPHILS % (AUTO) 4.9 % (0-6); HEMATOCRIT 36.3 % (36.0-47.0); HEMOGLOBIN 11.6 g/dL (12.0-15.5); LYMPHOCYTES % (AUTO) 8.6 % (13-45); MEAN CORPUSCULAR HEMOGLOBIN 27.1 pg (27.0-33.4); MEAN CORPUSCULAR HGB CONC 31.9 g/dL (32.0-36.0); MEAN CORPUSCULAR VOLUME 85 fl (80-97); MONOCYTES % (AUTO) 6.5 % (3-13); PLATELET COUNT 258 10^3/uL (150-450); RED BLOOD COUNT 4.27 10^6/uL (3.72-5.28); RED CELL DISTRIBUTION WIDTH 18.3 % (11.5-14.0); SEGMENTED NEUTROPHILS % (AUTO) 79.2 % (42-78); TOTAL CELLS COUNTED % (AUTO) 100 %; WHITE BLOOD COUNT 5.6 10^3/uL (4.0-10.5)
[2018-04-22 19:25] LABS: ALANINE AMINOTRANSFERASE 19 U/L (9-52); ALBUMIN 2.8 g/dL (3.5-5.0); ALKALINE PHOSPHATASE 141 U/L (38-126); ANION GAP 11 (5-19); ASPARTATE AMINO TRANSFERASE 16 U/L (14-36); BILIRUBIN,DIRECT 0.4 mg/dL (0.0-0.4); BILIRUBIN,TOTAL 0.4 mg/dL (0.2-1.3); BLOOD UREA NITROGEN 39 mg/dL (7-20); CALCIUM 8.4 mg/dL (8.4-10.2); CARBON DIOXIDE 28 mmol/L (22-30); CHLORIDE 102 mmol/L (98-107); GLUCOSE 137 mg/dL (75-110); POTASSIUM 4.6 mmol/L (3.6-5.0); SODIUM 141.1 mmol/L (137-145)
[2018-04-22] MEDS: BUMETANIDE 1 MG TABLET PO SCH (20:23)
[2018-04-22] MEDS: LANSOPRAZOLE 30 MG TAB.RAP.DR PO SCH (20:24)
--- NOTE | 2018-04-22 20:52 | PDOC PROGRESS REPORT ---
Subjective Progress Note for:: 04/22/18 Subjective:: Patient was seen by the bedside, he was supposed to have thoracentesis done today but this was delayed to tomorrow because of emergency cases they could not get to her Reason For Visit: ACUTE ON CHRONIC COMBINED CHF Physical Exam Vital Signs: Temp Pulse Resp BP Pulse Ox 97.4 F 72 18 119/69 97 04/22/18 16:14 04/22/18 19:00 04/22/18 16:14 04/22/18 16:14 04/22/18 16:14 Intake & Output 04/21/18 04/22/18 04/23/18 06:59 06:59 06:59 Intake Total 1092 1542 444 Output Total 8538 0055 1300 Balance -2770 -3682 -662 Weight 104 kg General appearance: PRESENT: mild distress Eye exam: PRESENT: PERRLA Respiratory exam: PRESENT: clear to auscultation abdi Cardiovascular exam: PRESENT: +S1, +S2 Murmur grade: 3 GI/Abdominal exam: PRESENT: soft Neurological exam: PRESENT: alert Results Laboratory Results: 04/22/18 18:36 04/22/18 18:36 04/22/18 04/22/18 18:36 18:36 WBC 5.6 RBC 4.27 Hgb 11.6 L Hct 36.3 MCV 85 MCH 27.1 MCHC 31.9 L RDW 18.3 H Plt Count 258 Seg Neutrophils % 79.2 H Lymphocytes % 8.6 L Monocytes % 6.5 Eosinophils % 4.9 Basophils % 0.8 Absolute Neutrophils 4.4 Absolute Lymphocytes 0.5 Absolute Monocytes 0.4 Absolute Eosinophils 0.3 Absolute Basophils 0.0 Sodium 141.1 Potassium 4.6 Chloride 102 Carbon Dioxide 28 Anion Gap 11 BUN 39 H Creatinine 2.11 H Est GFR ( Amer) 31 L Est GFR (Non-Af Amer) 26 L Glucose 137 H Calcium 8.4 Total Bilirubin 0.4 AST 16 ALT 19 Alkaline Phosphatase 141 H Total Protein 5.0 L Albumin 2.8 L 04/18/18 04/18/18 04/18/18 12:40 19:10 19:10 Creatine Kinase 270 H CK-MB (CK-2) 2.57 Troponin I 0.042 0.038 NT-Pro-B Natriuret Pep 04/19/18 04/19/18 04/19/18 00:50 00:50 06:50 Creatine Kinase 163 H 187 H CK-MB (CK-2) 2.10 Troponin I 0.039 NT-Pro-B Natriuret Pep 04/19/18 06:50 Creatine Kinase CK-MB (CK-2) 2.16 Troponin I 0.032 NT-Pro-B Natriuret Pep 05826 H Impressions: Chest X-Ray 04/18/18 07:53 IMPRESSION: Findings consistent with congestive heart failure, however a superimposed infectious process cannot be excluded. Abdomen Ultrasound 04/21/18 16:35 IMPRESSION: No intra-abdominal ascitic fluid was identified. Assessment & Plan - Diagnosis (1) Acute systolic heart failure Is this a current diagnosis for this admission?: Yes (2) Nephrotic syndrome Is this a current diagnosis for this admission?: Yes (3) Cardiomyopathy Qualifiers: Cardiomyopathy type: ischemic Qualified Code(s): I25.5 - Ischemic cardiomyopathy Is this a current diagnosis for this admission?: Yes (4) Low back pain Qualifiers: Chronicity: unspecified Back pain laterality: unspecified Sciatica presence: without sciatica Qualified Code(s): M54.5 - Low back pain Is this a current diagnosis for this admission?: Yes (5) Acute on chronic combined systolic and diastolic CHF, NYHA class 3 Is this a current diagnosis for this admission?: Yes (6) Anasarca Is this a current diagnosis for this admission?: Yes (7) Chronic kidney disease, stage 4 (severe) Is this a current diagnosis for this admission?: Yes (8) Focal segmental glomerulosclerosis Is this a current diagnosis for this admission?: Yes (9) Hypertension Qualifiers: Hypertension type: essential hypertension Qualified Code(s): I10 - Essential (primary) hypertension Is this a current diagnosis for this admission?: Yes (10) Pulmonary hypertension Is this a current diagnosis for this admission?: Yes (11) Mitral regurgitation Qualifiers: Cardiac valve disease etiology: etiology unspecified Qualified Code(s): I34.0 - Nonrheumatic mitral (valve) insufficiency Is this a current diagnosis for this admission?: Yes (12) Type 2 diabetes mellitus Qualifiers: Diabetes mellitus longterm insulin use: without extermination inspector use Diabetes mellitus complication status: with unspecified complications Qualified Code(s) : E11.8 - Type 2 diabetes mellitus with unspecified complications Is this a current diagnosis for this admission?: Yes
[2018-04-23] MEDS: GABAPENTIN 300 MG CAPSULE PO SCH ×3 (05:35→21:11)
[2018-04-23] MEDS: ISOSORBIDE DINITRATE 20 MG TABLET PO SCH ×3 (05:35→17:27)
[2018-04-23] MEDS: BUMETANIDE 1 MG TABLET PO SCH (05:35)
[2018-04-23] MEDS: LANSOPRAZOLE 30 MG TAB.RAP.DR PO SCH (05:35)
[2018-04-23] MEDS ORDERED: LIDOCAINE 1% INJ-PF (10 MG/ML) 30 ML SDV ONE (08:32)
--- NOTE | 2018-04-23 09:24 | RADIOLOGY REPORT (SQ) ---
EXAM DESCRIPTION: CHEST SINGLE VIEW COMPLETED DATE/TIME: 04/23/2018 9:15 am REASON FOR STUDY: S/P RT THORACENTESIS COMPARISON: 04/18/2018 NUMBER OF VIEWS: One view. TECHNIQUE: Single frontal radiographic view of the chest acquired. LIMITATIONS: None. FINDINGS: LUNGS AND PLEURA: Compared to prior, improved basilar aeration. Mild persistent central v ascular prominence and haziness in the lung bases. No significant effusion. No pneumothorax post th oracentesis. MEDIASTINUM AND HILAR STRUCTURES: No masses. Contour normal. HEART AND VASCULAR STRUCTURES: Heart normal in size. Normal vasculature. BONES: No acute findings. HARDWARE: Pacer, as before. OTHER: No other significant finding. IMPRESSION: No pneumothorax after thoracentesis. Improved. TECHNICAL DOCUMENTATION: JOB ID: [id number] [employer]- All Rights Reserved Reading location - IP/workstation name: [email or web address]
[2018-04-23] MEDS: ENOXAPARIN SODIUM INJ 40 MG/0.4 ML DISP.SYRIN SUBCUT SCH (09:41)
[2018-04-23] MEDS: TRAMADOL HCL 50 MG TABLET PO PRN ×2 (09:42→21:11)
[2018-04-23] MEDS: AMLODIPINE BESYLATE 10 MG TABLET PO SCH (09:42)
[2018-04-23] MEDS: DIPHENHYDRAMINE HCL 25 MG CAPSULE PO PRN ×2 (09:43→21:12)
[2018-04-23] MEDS: CHOLECALCIFEROL (D3) 1,000 UNIT TABLET PO SCH (09:43)
[2018-04-23] MEDS: ALLOPURINOL 100 MG TABLET PO SCH (09:43)
[2018-04-23] MEDS: CARVEDILOL 12.5 MG TABLET PO SCH ×2 (09:43→21:12)
[2018-04-23] MEDS: ASPIRIN 81 MG TABLET, ENT COATED PO SCH (09:44)
[2018-04-23] MEDS: FUROSEMIDE 80 MG TABLET PO SCH ×3 (09:44→17:27)
[2018-04-23] MEDS: SACUBITRIL/VALSARTAN 97 MG/103 MG TABLET PO SCH ×2 (09:44→21:12)
[2018-04-23 10:34] LABS: FLUID COLOR LIGHT YELLOW; FLUID SOURCE LUNG; FLUID TYPE PLEURAL
[2018-04-23 10:35] LABS: FLUID APPEARANCE SLIGHTLY HAZY; FLUID VISCOSITY LIQUID
--- NOTE | 2018-04-23 11:55 | RADIOLOGY REPORT (SQ) ---
EXAM DESCRIPTION: CHEST SINGLE VIEW COMPLETED DATE/TIME: 04/23/2018 11:23 am REASON FOR STUDY: 2 HOUR POST Right Thoracentesis COMPARISON: Earlier from today. FINDINGS: Portable AP upright single-view timed approximately 1111 hours. Stable chest without pneumothorax. IMPRESSION: Stable 2 hour post right thoracentesis radiograph. No pneumothorax. TECHNICAL DOCUMENTATION: JOB ID: [id number] Reading location - IP/workstation name: [email or web address]
--- NOTE | 2018-04-23 12:08 | RADIOLOGY REPORT (SQ) ---
EXAM DESCRIPTION: U/S THORACENTESIS WITH IMAGING COMPLETED DATE/TIME: 04/23/2018 9:08 am REASON FOR STUDY: pleural effusion COMPARISON: None. LIMITATIONS: None. PROCEDURE: Procedure, risks, benefit, and alternative explained to patient who then gave written con sent. The right chest wall was marked using ultrasound guidance. A time-out was called for correct marking verification. Chest prepped and draped using sterile technique. Local anesthesia achieved us ing 5 ml of 1% lidocaine injection. A 6fr Safe-T- Centesis set was introduced into the right pleural space. Fluid was aspirated. The catheter was removed and the entry site was covered with sterile b andage. No immediate complications noted. Images acquired during the procedure were stored on PACS. FINDINGS: ENTRY SITE: Right lateral FLUID VOLUME: 1,050 FLUID ANALYSIS: Straws OTHER: None IMPRESSION: SUCCESSFUL THORACENTESIS USING ULTRASOUND GUIDANCE. COMMENT: Patient medication list reviewed: Yes- Quality ID# [id number]:Eligible professional attests to doc umenting in the medical record they obtained, updated, or reviewed the patient's current medications. TECHNICAL DOCUMENTATION: JOB ID: [id number] [employer]- All Rights Reserved Reading location - IP/workstation name: [email or web address]
--- NOTE | 2018-04-23 20:50 | PDOC PROGRESS REPORT ---
Subjective Progress Note for:: 04/23/18 Subjective:: Patient was seen by the bedside, she had thoracentesis done today over a liter of fluid was collected, fluid sent for analysis most likely is transudative pleural effusion. She feels somewhat better she has expresses desire to go home on oxygen Reason For Visit: ACUTE ON CHRONIC COMBINED CHF Physical Exam Vital Signs: Temp Pulse Resp BP Pulse Ox 97.8 F 72 20 93/78 L 100 04/23/18 19:35 04/23/18 19:35 04/23/18 19:35 04/23/18 19:35 04/23/18 19:35 Intake & Output 04/22/18 04/23/18 04/24/18 06:59 06:59 06:59 Intake Total 1542 1347 572 Output Total 6949 1760 1300 Balance -4713 -8140 -708 General appearance: PRESENT: no acute distress Eye exam: PRESENT: PERRLA Respiratory exam: PRESENT: clear to auscultation abdi Cardiovascular exam: PRESENT: +S1, +S2 Murmur grade: 3 GI/Abdominal exam: PRESENT: soft Neurological exam: PRESENT: alert Results Laboratory Results: 04/22/18 18:36 04/22/18 18:36 04/23/18 08:40 Fluid Type PLEURAL Fluid Source LUNG Fluid Color LIGHT YELLOW Fluid Appearance SLIGHTLY HAZY Fluid Viscosity LIQUID Fluid WBC 34 Fluid RBC 33 04/18/18 04/18/18 04/18/18 12:40 19:10 19:10 Creatine Kinase 270 H CK-MB (CK-2) 2.57 Troponin I 0.042 0.038 NT-Pro-B Natriuret Pep 04/19/18 04/19/18 04/19/18 00:50 00:50 06:50 Creatine Kinase 163 H 187 H CK-MB (CK-2) 2.10 Troponin I 0.039 NT-Pro-B Natriuret Pep 04/19/18 06:50 Creatine Kinase CK-MB (CK-2) 2.16 Troponin I 0.032 NT-Pro-B Natriuret Pep [id number] H Impressions: Abdomen Ultrasound 04/21/18 16:35 IMPRESSION: No intra-abdominal ascitic fluid was identified. Chest X-Ray 04/23/18 12:30 IMPRESSION: Stable 2 hour post right thoracentesis radiograph. No pneumothorax. Thoracentesis Ultrasound 04/23/18 16:09 IMPRESSION: SUCCESSFUL THORACENTESIS USING ULTRASOUND GUIDANCE. Assessment & Plan - Diagnosis (1) Acute systolic heart failure Is this a current diagnosis for this admission?: Yes (2) Nephrotic syndrome Is this a current diagnosis for this admission?: Yes (3) Cardiomyopathy Qualifiers: Cardiomyopathy type: ischemic Qualified Code(s): I25.5 - Ischemic cardiomyopathy Is this a current diagnosis for this admission?: Yes (4) Low back pain Qualifiers: Chronicity: unspecified Back pain laterality: unspecified Sciatica presence: without sciatica Qualified Code(s): M54.5 - Low back pain Is this a current diagnosis for this admission?: Yes (5) Acute on chronic combined systolic and diastolic CHF, NYHA class 3 Is this a current diagnosis for this admission?: Yes (6) Anasarca Is this a current diagnosis for this admission?: Yes (7) Chronic kidney disease, stage 4 (severe) Is this a current diagnosis for this admission?: Yes (8) Focal segmental glomerulosclerosis Is this a current diagnosis for this admission?: Yes (9) Hypertension Qualifiers: Hypertension type: essential hypertension Qualified Code(s): I10 - Essential (primary) hypertension Is this a current diagnosis for this admission?: Yes (10) Pulmonary hypertension Is this a current diagnosis for this admission?: Yes (11) Mitral regurgitation Qualifiers: Cardiac valve disease etiology: etiology unspecified Qualified Code(s): I34.0 - Nonrheumatic mitral (valve) insufficiency Is this a current diagnosis for this admission?: Yes (12) Type 2 diabetes mellitus Qualifiers: Diabetes mellitus tight cooper insulin use: without tight cooper use Diabetes mellitus complication status: with unspecified complications Qualified Code(s) : E11.8 - Type 2 diabetes mellitus with unspecified complications Is this a current diagnosis for this admission?: Yes - Plan Summary Plan Summary: Continue treatment
[2018-04-23] MEDS: SIMETHICONE 80 MG TAB.CHEW PO PRN (23:02)
[2018-04-24] MEDS: BUMETANIDE 1 MG TABLET PO SCH (05:09)
[2018-04-24] MEDS: GABAPENTIN 300 MG CAPSULE PO SCH ×3 (05:09→22:33)
[2018-04-24] MEDS: LANSOPRAZOLE 30 MG TAB.RAP.DR PO SCH (05:09)
[2018-04-24] MEDS: ISOSORBIDE DINITRATE 20 MG TABLET PO SCH ×3 (05:09→18:11)
[2018-04-24] MEDS: ASPIRIN 81 MG TABLET, ENT COATED PO SCH (10:01)
[2018-04-24] MEDS: FUROSEMIDE 80 MG TABLET PO SCH ×3 (10:01→18:11)
[2018-04-24] MEDS: CARVEDILOL 12.5 MG TABLET PO SCH ×2 (10:01→22:35)
[2018-04-24] MEDS: SACUBITRIL/VALSARTAN 97 MG/103 MG TABLET PO SCH ×2 (10:01→22:33)
[2018-04-24] MEDS: ALLOPURINOL 100 MG TABLET PO SCH (10:01)
[2018-04-24] MEDS: AMLODIPINE BESYLATE 10 MG TABLET PO SCH (10:01)
[2018-04-24] MEDS: CHOLECALCIFEROL (D3) 1,000 UNIT TABLET PO SCH (10:02)
[2018-04-24] MEDS: ENOXAPARIN SODIUM INJ 40 MG/0.4 ML DISP.SYRIN SUBCUT SCH (10:02)
--- NOTE | 2018-04-24 13:07 | PDOC PROGRESS REPORT ---
Subjective Progress Note for:: 04/24/18 Subjective:: She was by the bedside no new complaints Reason For Visit: ACUTE ON CHRONIC COMBINED CHF Physical Exam Vital Signs: Temp Pulse Resp BP Pulse Ox 98.1 F 70 15 118/77 99 04/24/18 08:00 04/24/18 08:00 04/24/18 12:25 04/24/18 08:00 04/24/18 08:30 Intake & Output 04/23/18 04/24/18 04/25/18 06:59 06:59 06:59 Intake Total 1347 1052 Output Total 2700 2100 Balance -1353 -1048 General appearance: PRESENT: no acute distress Head exam: PRESENT: atraumatic, normocephalic Eye exam: PRESENT: PERRLA Ear exam: PRESENT: normal external ear exam Mouth exam: PRESENT: moist, tongue midline Neck exam: PRESENT: full ROM Respiratory exam: PRESENT: clear to auscultation abdi Cardiovascular exam: PRESENT: RRR, +S1, +S2 Murmur grade: 3 Pulses: PRESENT: normal dorsalis pedis pul, +2 pedal pulses bilateral Vascular exam: PRESENT: normal capillary refill GI/Abdominal exam: PRESENT: normal bowel sounds, soft Rectal exam: PRESENT: deferred Neurological exam: PRESENT: alert, CN II-XII grossly intact Psychiatric exam: PRESENT: appropriate affect, normal mood Skin exam: PRESENT: dry, intact, warm. ABSENT: cyanosis, rash Results Laboratory Results: 04/22/18 18:36 04/22/18 18:36 04/18/18 04/18/18 04/18/18 12:40 19:10 19:10 Creatine Kinase 270 H CK-MB (CK-2) 2.57 Troponin I 0.042 0.038 NT-Pro-B Natriuret Pep 04/19/18 04/19/18 04/19/18 00:50 00:50 06:50 Creatine Kinase 163 H 187 H CK-MB (CK-2) 2.10 Troponin I 0.039 NT-Pro-B Natriuret Pep 04/19/18 06:50 Creatine Kinase CK-MB (CK-2) 2.16 Troponin I 0.032 NT-Pro-B Natriuret Pep 13404 H Impressions: Abdomen Ultrasound 04/21/18 16:35 IMPRESSION: No intra-abdominal ascitic fluid was identified. Chest X-Ray 04/23/18 12:30 IMPRESSION: Stable 2 hour post right thoracentesis radiograph. No pneumothorax. Thoracentesis Ultrasound 04/23/18 16:09 IMPRESSION: SUCCESSFUL THORACENTESIS USING ULTRASOUND GUIDANCE. Assessment & Plan - Diagnosis (1) Acute systolic heart failure Is this a current diagnosis for this admission?: Yes (2) Nephrotic syndrome Is this a current diagnosis for this admission?: Yes (3) Cardiomyopathy Qualifiers: Cardiomyopathy type: ischemic Qualified Code(s): I25.5 - Ischemic cardiomyopathy Is this a current diagnosis for this admission?: Yes (4) Low back pain Qualifiers: Chronicity: unspecified Back pain laterality: unspecified Sciatica presence: without sciatica Qualified Code(s): M54.5 - Low back pain Is this a current diagnosis for this admission?: Yes (5) Acute on chronic combined systolic and diastolic CHF, NYHA class 3 Is this a current diagnosis for this admission?: Yes (6) Anasarca Is this a current diagnosis for this admission?: Yes (7) Chronic kidney disease, stage 4 (severe) Is this a current diagnosis for this admission?: Yes (8) Focal segmental glomerulosclerosis Is this a current diagnosis for this admission?: Yes (9) Hypertension Qualifiers: Hypertension type: essential hypertension Qualified Code(s): I10 - Essential (primary) hypertension Is this a current diagnosis for this admission?: Yes (10) Pulmonary hypertension Is this a current diagnosis for this admission?: Yes (11) Mitral regurgitation Qualifiers: Cardiac valve disease etiology: etiology unspecified Qualified Code(s): I34.0 - Nonrheumatic mitral (valve) insufficiency Is this a current diagnosis for this admission?: Yes (12) Type 2 diabetes mellitus Qualifiers: Diabetes mellitus custodial insulin use: without longwall machine operator helper use Diabetes mellitus complication status: with unspecified complications Qualified Code(s) : E11.8 - Type 2 diabetes mellitus with unspecified complications Is this a current diagnosis for this admission?: Yes
[2018-04-24] MEDS: TRAMADOL HCL 50 MG TABLET PO PRN ×2 (16:13→22:33)
[2018-04-24] MEDS: DIPHENHYDRAMINE HCL 25 MG CAPSULE PO PRN ×2 (16:13→22:33)
[2018-04-24] MEDS: SIMETHICONE 80 MG TAB.CHEW PO PRN (22:33)
[2018-04-25] MEDS: BUMETANIDE 1 MG TABLET PO SCH (05:49)
[2018-04-25] MEDS: GABAPENTIN 300 MG CAPSULE PO SCH ×3 (05:49→22:47)
[2018-04-25] MEDS: LANSOPRAZOLE 30 MG TAB.RAP.DR PO SCH (05:49)
[2018-04-25] MEDS: ISOSORBIDE DINITRATE 20 MG TABLET PO SCH ×3 (05:50→17:20)
[2018-04-25 06:07] LABS: TOTAL PROTEIN BODY FLUID 1.3 g/dL (.)
[2018-04-25] MEDS: SACUBITRIL/VALSARTAN 97 MG/103 MG TABLET PO SCH ×2 (09:20→22:46)
[2018-04-25] MEDS: ASPIRIN 81 MG TABLET, ENT COATED PO SCH (09:20)
[2018-04-25] MEDS: ALLOPURINOL 100 MG TABLET PO SCH (09:20)
[2018-04-25] MEDS: CARVEDILOL 12.5 MG TABLET PO SCH ×2 (09:20→22:46)
[2018-04-25] MEDS: FUROSEMIDE 80 MG TABLET PO SCH ×3 (09:20→17:20)
[2018-04-25] MEDS: AMLODIPINE BESYLATE 10 MG TABLET PO SCH (09:20)
[2018-04-25] MEDS: ENOXAPARIN SODIUM INJ 40 MG/0.4 ML DISP.SYRIN SUBCUT SCH (09:20)
[2018-04-25] MEDS: CHOLECALCIFEROL (D3) 1,000 UNIT TABLET PO SCH (09:20)
[2018-04-25] MEDS: TRAMADOL HCL 50 MG TABLET PO PRN ×2 (09:30→22:46)
[2018-04-25] MEDS: DIPHENHYDRAMINE HCL 25 MG CAPSULE PO PRN ×2 (09:30→22:46)
[2018-04-25] MEDS: SIMETHICONE 80 MG TAB.CHEW PO PRN ×2 (09:30→22:47)
[2018-04-25 13:55] LABS: ABSOLUTE EOSINOPHILS # (AUTO) 0.2 10^3/uL (0.0-0.6); ABSOLUTE LYMPHOCYTES (AUTO) 0.3 10^3/uL (0.5-4.7); ABSOLUTE MONOCYTES (AUTO) 0.3 10^3/uL (0.1-1.4); ABSOLUTE NEUT (AUTO) 3.3 10^3/uL (1.7-8.2); BASOPHILS % (AUTO) 0.7 % (0-2); HEMATOCRIT 35.1 % (36.0-47.0); HEMOGLOBIN 11.3 g/dL (12.0-15.5); MEAN CORPUSCULAR HEMOGLOBIN 26.9 pg (27.0-33.4); MEAN CORPUSCULAR HGB CONC 32.1 g/dL (32.0-36.0); MEAN CORPUSCULAR VOLUME 84 fl (80-97); MONOCYTES % (AUTO) 7.7 % (3-13); PLATELET COUNT 231 10^3/uL (150-450); RED BLOOD COUNT 4.19 10^6/uL (3.72-5.28); RED CELL DISTRIBUTION WIDTH 18.2 % (11.5-14.0); SEGMENTED NEUTROPHILS % (AUTO) 79.6 % (42-78); TOTAL CELLS COUNTED % (AUTO) 100 %; WHITE BLOOD COUNT 4.1 10^3/uL (4.0-10.5)
[2018-04-25 14:19] LABS: ALANINE AMINOTRANSFERASE 20 U/L (9-52); ALKALINE PHOSPHATASE 146 U/L (38-126); ANION GAP 9 (5-19); ASPARTATE AMINO TRANSFERASE 18 U/L (14-36); BILIRUBIN,DIRECT 0.3 mg/dL (0.0-0.4); BILIRUBIN,TOTAL 0.4 mg/dL (0.2-1.3); BLOOD UREA NITROGEN 58 mg/dL (7-20); CALCIUM 8.7 mg/dL (8.4-10.2); CARBON DIOXIDE 29 mmol/L (22-30); CHLORIDE 103 mmol/L (98-107); GLUCOSE 100 mg/dL (75-110); POTASSIUM 4.6 mmol/L (3.6-5.0); SODIUM 141.4 mmol/L (137-145); TOTAL PROTEIN 5.5 g/dL (6.3-8.2)
--- NOTE | 2018-04-25 15:09 | PDOC PROGRESS REPORT ---
Subjective Progress Note for:: 04/25/18 Subjective:: She has many issues to address, she wants colonoscopy because of altered bowel habits, she wanted to be seen by nephrology because of nephrotic syndrome, she wants oxygen when she gets discharged, She would like to have another thoracentesis because she still short of breath Reason For Visit: ACUTE ON CHRONIC COMBINED CHF Physical Exam Vital Signs: Temp Pulse Resp BP Pulse Ox 98.1 F 72 20 118/73 98 04/25/18 12:38 04/25/18 12:38 04/25/18 12:38 04/25/18 12:38 04/25/18 12:38 Intake & Output 04/24/18 04/25/18 04/26/18 06:59 06:59 06:59 Intake Total 1052 1689 355 Output Total 2100 1520 900 Balance -5138 -761 -545 Weight 104.9 kg General appearance: PRESENT: no acute distress Eye exam: PRESENT: PERRLA Respiratory exam: PRESENT: decreased breath sounds Cardiovascular exam: PRESENT: +S1, +S2 Murmur grade: 3 GI/Abdominal exam: PRESENT: soft Neurological exam: PRESENT: alert Results Laboratory Results: 04/25/18 13:30 04/25/18 13:30 04/23/18 04/25/18 04/25/18 08:40 13:30 13:30 WBC 4.1 RBC 4.19 Hgb 11.3 L Hct 35.1 L MCV 84 MCH 26.9 L MCHC 32.1 RDW 18.2 H Plt Count 231 Seg Neutrophils % 79.6 H Lymphocytes % 8.0 L Monocytes % 7.7 Eosinophils % 4.0 Basophils % 0.7 Absolute Neutrophils 3.3 Absolute Lymphocytes 0.3 L Absolute Monocytes 0.3 Absolute Eosinophils 0.2 Absolute Basophils 0.0 Sodium 141.4 Potassium 4.6 Chloride 103 Carbon Dioxide 29 Anion Gap 9 BUN 58 H Creatinine 2.48 H Est GFR ( Amer) 26 L Est GFR (Non-Af Amer) 21 L Glucose 100 Calcium 8.7 Total Bilirubin 0.4 AST 18 ALT 20 Alkaline Phosphatase 146 H Total Protein 5.5 L Albumin 3.0 L Fluid Glucose 109 Fluid Total Protein 1.3 Fluid LDH 67 04/18/18 04/18/18 04/18/18 12:40 19:10 19:10 Creatine Kinase 270 H CK-MB (CK-2) 2.57 Troponin I 0.042 0.038 NT-Pro-B Natriuret Pep 04/19/18 04/19/18 04/19/18 00:50 00:50 06:50 Creatine Kinase 163 H 187 H CK-MB (CK-2) 2.10 Troponin I 0.039 NT-Pro-B Natriuret Pep 04/19/18 06:50 Creatine Kinase CK-MB (CK-2) 2.16 Troponin I 0.032 NT-Pro-B Natriuret Pep 28712 H Impressions: Abdomen Ultrasound 04/21/18 16:35 IMPRESSION: No intra-abdominal ascitic fluid was identified. Chest X-Ray 04/23/18 12:30 IMPRESSION: Stable 2 hour post right thoracentesis radiograph. No pneumothorax. Thoracentesis Ultrasound 04/23/18 16:09 IMPRESSION: SUCCESSFUL THORACENTESIS USING ULTRASOUND GUIDANCE. Assessment & Plan - Diagnosis (1) Acute systolic heart failure Is this a current diagnosis for this admission?: Yes (2) Nephrotic syndrome Is this a current diagnosis for this admission?: Yes (3) Cardiomyopathy Qualifiers: Cardiomyopathy type: ischemic Qualified Code(s): I25.5 - Ischemic cardiomyopathy Is this a current diagnosis for this admission?: Yes (4) Low back pain Qualifiers: Chronicity: unspecified Back pain laterality: unspecified Sciatica presence: without sciatica Qualified Code(s): M54.5 - Low back pain Is this a current diagnosis for this admission?: Yes (5) Acute on chronic combined systolic and diastolic CHF, NYHA class 3 Is this a current diagnosis for this admission?: Yes (6) Anasarca Is this a current diagnosis for this admission?: Yes (7) Chronic kidney disease, stage 4 (severe) Is this a current diagnosis for this admission?: Yes (8) Focal segmental glomerulosclerosis Is this a current diagnosis for this admission?: Yes (9) Hypertension Qualifiers: Hypertension type: essential hypertension Qualified Code(s): I10 - Essential (primary) hypertension Is this a current diagnosis for this admission?: Yes (10) Pulmonary hypertension Is this a current diagnosis for this admission?: Yes (11) Mitral regurgitation Qualifiers: Cardiac valve disease etiology: etiology unspecified Qualified Code(s): I34.0 - Nonrheumatic mitral (valve) insufficiency Is this a current diagnosis for this admission?: Yes (12) Type 2 diabetes mellitus Qualifiers: Diabetes mellitus exterminator insulin use: without exterminator use Diabetes mellitus complication status: with unspecified complications Qualified Code(s) : E11.8 - Type 2 diabetes mellitus with unspecified complications Is this a current diagnosis for this admission?: Yes
[2018-04-25 17:09] LABS: ARTERIAL BLOOD BASE EXCESS 2.9 mmol/L; ARTERIAL BLOOD FIO2 21%; ARTERIAL BLOOD H2CO3 1.18 mmol/L (1.05-1.35); ARTERIAL BLOOD HCO3 26.9 mmol/L (20-26); ARTERIAL BLOOD O2 SATURATION 95.5 % (94-98); ARTERIAL BLOOD PCO2 39.1 mmHg (35-45); ARTERIAL BLOOD PH 7.46 (7.35-7.45); ARTERIAL BLOOD PO2 73.6 mmHg (80-100); ARTERIAL BLOOD TOTAL CO2 28.1 mmol/L (21-25)
[2018-04-26] MEDS: BUMETANIDE 1 MG TABLET PO SCH (05:58)
[2018-04-26] MEDS: LANSOPRAZOLE 30 MG TAB.RAP.DR PO SCH (05:58)
[2018-04-26] MEDS: GABAPENTIN 300 MG CAPSULE PO SCH ×3 (05:58→21:03)
[2018-04-26] MEDS: ISOSORBIDE DINITRATE 20 MG TABLET PO SCH ×3 (05:59→17:11)
[2018-04-26 06:54] LABS: ALANINE AMINOTRANSFERASE 19 U/L (9-52); ALBUMIN 2.6 g/dL (3.5-5.0); ALKALINE PHOSPHATASE 145 U/L (38-126); ANION GAP 10 (5-19); ASPARTATE AMINO TRANSFERASE 19 U/L (14-36); BILIRUBIN,DIRECT 0.3 mg/dL (0.0-0.4); BILIRUBIN,TOTAL 0.3 mg/dL (0.2-1.3); BLOOD UREA NITROGEN 64 mg/dL (7-20); CALCIUM 8.5 mg/dL (8.4-10.2); CARBON DIOXIDE 26 mmol/L (22-30); CHLORIDE 105 mmol/L (98-107); GLUCOSE 86 mg/dL (75-110); POTASSIUM 4.6 mmol/L (3.6-5.0); SODIUM 141.4 mmol/L (137-145)
[2018-04-26] MEDS: ALLOPURINOL 100 MG TABLET PO SCH (10:03)
[2018-04-26] MEDS: CHOLECALCIFEROL (D3) 1,000 UNIT TABLET PO SCH (10:03)
[2018-04-26] MEDS: FUROSEMIDE 80 MG TABLET PO SCH ×3 (10:03→17:11)
[2018-04-26] MEDS: CARVEDILOL 12.5 MG TABLET PO SCH ×2 (10:05→21:03)
[2018-04-26] MEDS: AMLODIPINE BESYLATE 10 MG TABLET PO SCH (10:05)
[2018-04-26] MEDS: SACUBITRIL/VALSARTAN 97 MG/103 MG TABLET PO SCH ×2 (10:05→21:02)
[2018-04-26] MEDS: ENOXAPARIN SODIUM INJ 40 MG/0.4 ML DISP.SYRIN SUBCUT SCH (10:11)
[2018-04-26] MEDS: ASPIRIN 81 MG TABLET, ENT COATED PO SCH (10:11)
--- NOTE | 2018-04-26 12:18 | RADIOLOGY REPORT (SQ) ---
EXAM DESCRIPTION: CHEST SINGLE VIEW COMPLETED DATE/TIME: 04/26/2018 11:25 am REASON FOR STUDY: S/P RT THORACENTESIS COMPARISON: 04/23/2018. EXAM PARAMETERS: NUMBER OF VIEWS: One view. TECHNIQUE: Single frontal radiographic view of the chest acquired. RADIATION DOSE: NA LIMITATIONS: None. FINDINGS: LUNGS AND PLEURA: No opacities, masses or pneumothorax. No large pleural effusion. MEDIASTINUM AND HILAR STRUCTURES: No masses. Contour normal. HEART AND VASCULAR STRUCTURES: Stable cardiomegaly. BONES: No acute findings. HARDWARE: Defibrillator. OTHER: No other significant finding. IMPRESSION: STABLE APPEARANCE OF THE CHEST. NO PNEUMOTHORAX FOLLOWING THORACENTESIS. TECHNICAL DOCUMENTATION: JOB ID: [id number] [employer]- All Rights Reserved Reading location - IP/workstation name: [email or web address]
--- NOTE | 2018-04-26 12:19 | RADIOLOGY REPORT (SQ) ---
EXAM DESCRIPTION: U/S THORACENTESIS WITH IMAGING COMPLETED DATE/TIME: 04/26/2018 11:21 am REASON FOR STUDY: pleural effusion COMPARISON: None. LIMITATIONS: None. PROCEDURE: Procedure, risks, benefit, and alternative explained to patient who then gave written con sent. The posterior right chest wall was marked using ultrasound guidance. A time-out was called fo r correct marking verification. Chest prepped and draped using sterile technique. Local anesthesia a chieved using 10 ml of 1% lidocaine injection. A 6fr Safe-T- Centesis set was introduced into the [facility] pleural space. Fluid was aspirated. The catheter was removed and the entry site was covered wit h sterile bandage. No immediate complications noted. Images acquired during the procedure were stored on PACS. FINDINGS: ENTRY SITE: Posterior right chest. FLUID VOLUME: 450 mL. FLUID ANALYSIS: Straw-colored. OTHER: Therapeutic only IMPRESSION: SUCCESSFUL THORACENTESIS USING ULTRASOUND GUIDANCE. COMMENT: Patient medication list reviewed: Yes- Quality ID# [id number]:Eligible professional attests to doc umenting in the medical record they obtained, updated, or reviewed the patient's current medications. TECHNICAL DOCUMENTATION: JOB ID: [id number] [employer]- All Rights Reserved Reading location - IP/workstation name: [email or web address]
[2018-04-26] MEDS: TRAMADOL HCL 50 MG TABLET PO PRN ×2 (13:08→21:02)
[2018-04-26] MEDS: DIPHENHYDRAMINE HCL 25 MG CAPSULE PO PRN ×2 (13:08→21:03)
[2018-04-26] MEDS: SIMETHICONE 80 MG TAB.CHEW PO PRN (13:09)
--- NOTE | 2018-04-26 13:51 | RADIOLOGY REPORT (SQ) ---
EXAM DESCRIPTION: CHEST SINGLE VIEW COMPLETED DATE/TIME: 04/26/2018 1:40 pm REASON FOR STUDY: 2 HOURS S/P RT THORACENTESIS COMPARISON: 04/26/2018 at 1120 hours. EXAM PARAMETERS: NUMBER OF VIEWS: One view. TECHNIQUE: Single frontal radiographic view of the chest acquired. RADIATION DOSE: NA LIMITATIONS: None. FINDINGS: LUNGS AND PLEURA: No opacities, masses or pneumothorax. No pleural effusion. MEDIASTINUM AND HILAR STRUCTURES: No masses. Contour normal. HEART AND VASCULAR STRUCTURES: Stable cardiomegaly. BONES: No acute findings. HARDWARE: Defibrillator. OTHER: No other significant finding. IMPRESSION: STABLE APPEARANCE OF THE CHEST. NO PNEUMOTHORAX 2 HOURS FOLLOWING THORACENTESIS. TECHNICAL DOCUMENTATION: JOB ID: [id number] [employer]- All Rights Reserved Reading location - IP/workstation name: [email or web address]
--- NOTE | 2018-04-26 14:04 | PDOC CONSULTATION ---
Consultation Consult Date: 04/26/18 Attending physician:: GARY ERVIN Consult reason:: Diarrhea, change in bowel habits History of Present Illness Admission Date/PCP: 04/18/18 12:14 VU GUZMAN MD History of Present Illness: BERONICA YEUNG is a 43 year old female admitted by Dr Terrazas has elevated BNP c/w with severe CHF has been having loose stools wants another colonoscopy saw that she was scoped by Dr Mcneal, in 2016, at that time had EGD no report of a colonoscopy done as an inpatient will need to get records patient will need cardiac clearance I have spoken to RN to get Dr Terrazas to order cardiac consult denies any blood in her stools Past Medical History Cardiac Medical History: Reports: Congestive Heart Failure - Chronic systolic and diastolic heart failure, Coronary Artery Disease, Myocardial Infarction, Hypertension Pulmonary Medical History: Denies: Tuberculosis Neurological Medical History: Denies: Seizures Endocrine Medical History: Reports: Diabetes Mellitus Type 2 - non compliant ( pt has snacks in her suitcase etc) GI Medical History: Reports: Gastroesophageal Reflux Disease Psychiatric Medical History: Reports: Depression Past Surgical History Past Surgical History: Reports: Cardiac Catheterization - stent x1, Coronary Stent, Pacemaker - AICD Denies: Hysterectomy Social History Lives with: Family Smoking Status: Former Smoker Frequency of Alcohol Use: None Hx Recreational Drug Use: No Drugs: None Hx Prescription Drug Abuse: No - Advance Directive Resuscitation Status: Full Code Family History Family History: None, Reviewed & Not Pertinent, Hypertension Parental Family History Reviewed: Yes Children Family History Reviewed: Unknown Sibling(s) Family History Reviewed.: Unknown Medication/Allergy Home Medications: Allopurinol [Zyloprim 100 mg Tablet] 100 mg PO DAILY 11/25/16 Docusate Sodium [Colace 100 mg Capsule] 100 mg PO BIDP PRN 11/25/16 Omeprazole 40 mg PO DAILY 11/25/16 Cholecalciferol (Vitamin D3) [Vitamin D3] 4,000 unit PO DAILY 05/04/17 Atorvastatin Calcium [Lipitor 80 mg Tablet] 80 mg PO QHS #90 tablet 05/09/17 Medroxyprogesterone Acet [Provera 10 mg Tablet] 10 mg PO DAILY 06/27/17 Amlodipine Besylate [Norvasc 10 mg Tablet] 10 mg PO DAILY 04/18/18 Aspirin [Aspirin EC] 81 mg PO DAILY 04/18/18 Bumetanide [Bumex 1 mg Tablet] 3 mg PO Q6AM 04/18/18 Carvedilol [Coreg 12.5 mg Tablet] 12.5 mg PO Q12 04/18/18 Doxepin HCl [Silenor] 6 mg PO QHS 04/18/18 Furosemide [Lasix] 80 mg PO TID 04/18/18 Gabapentin [Neurontin 300 mg Capsule] 600 mg PO Q8 04/18/18 Hydralazine HCl [Apresoline 50 mg Tablet] 50 mg PO Q8HP PRN 04/18/18 Isosorbide Dinitrate 60 mg PO TID@06,12,18 04/18/18 Lutein [Natural Lutein] 20 mg PO DAILY 04/18/18 Sacubitril/Valsartan [Entresto 97 mg-103 mg Tablet] 1 each PO Q12 04/18/18 Vitamin E [Natural Vitamin E] 400 unit PO DAILY 04/18/18 Allergies/Adverse Reactions: hydrocodone bitartrate [From Vicodin] Allergy (Verified 06/26/17 18:25) Hives hydromorphone HCl [From Dilaudid] Allergy (Verified 06/26/17 18:25) Hives levofloxacin [From Levaquin] Allergy (Verified 06/26/17 18:25) Hives oxycodone HCl [From Percocet] Allergy (Verified 06/26/17 18:25) Hives tramadol [Tramadol] Allergy (Verified 06/26/17 18:25) Hives Review of Systems Constitutional: PRESENT: weakness. ABSENT: fever(s), headache(s), night sweats Eyes: ABSENT: visual disturbances Ears: ABSENT: hearing changes Nose, Mouth, and Throat: ABSENT: mouth pain, sore throat Cardiovascular: PRESENT: orthropnea Respiratory: PRESENT: dyspnea. ABSENT: hemoptysis Gastrointestinal: PRESENT: diarrhea. ABSENT: dysphagia, melena, nausea, vomiting Genitourinary: ABSENT: dysuria, hematuria Musculoskeletal: ABSENT: deformity, joint swelling Neurological: ABSENT: syncope, tingling, tremor(s), vertigo Endocrine: ABSENT: polydipsia, polyphagia, polyuria Hematologic/Lymphatic: ABSENT: easy bruising Physical Exam Vital Signs: Temp Pulse Resp BP Pulse Ox 97.8 F 73 16 127/89 H 99 04/26/18 11:47 04/26/18 11:47 04/26/18 11:47 04/26/18 11:47 04/26/18 12:40 Intake & Output 04/25/18 04/26/18 04/27/18 06:59 06:59 06:59 Intake Total 1689 1397 237 Output Total 2450 6380 1000 Balance -761 -1483 -763 Weight 104.9 kg 104.2 kg General appearance: PRESENT: well-developed, well-nourished Head exam: PRESENT: atraumatic, normocephalic Eye exam: PRESENT: EOMI, PERRLA. ABSENT: nystagmus, periorbital swelling, scleral icterus Mouth exam: PRESENT: moist, neck supple Throat exam: ABSENT: tonsillar exudate, tonsillogmegaly Respiratory exam: PRESENT: unlabored. ABSENT: symmetrical, tachypnea, wheezes Cardiovascular exam: PRESENT: +S1, +S2 GI/Abdominal exam: PRESENT: soft. ABSENT: rebound, rigid, tenderness Extremities exam: PRESENT: +1 edema Neurological exam: PRESENT: oriented to time, oriented to situation, CN II-XII grossly intact Focused psych exam: ABSENT: restlessness Skin exam: PRESENT: normal color. ABSENT: mottled, pallor, urticaria, vesicles Results Laboratory Results: 04/25/18 13:30 04/26/18 05:21 04/25/18 04/25/18 04/25/18 13:30 13:30 16:55 WBC 4.1 RBC 4.19 Hgb 11.3 L Hct 35.1 L MCV 84 MCH 26.9 L MCHC 32.1 RDW 18.2 H Plt Count 231 Seg Neutrophils % 79.6 H Lymphocytes % 8.0 L Monocytes % 7.7 Eosinophils % 4.0 Basophils % 0.7 Absolute Neutrophils 3.3 Absolute Lymphocytes 0.3 L Absolute Monocytes 0.3 Absolute Eosinophils 0.2 Absolute Basophils 0.0 Carbonic Acid 1.18 HCO3/H2CO3 Ratio 22:1 ABG pH 7.46 H ABG pCO2 39.1 ABG pO2 73.6 L ABG HCO3 26.9 H ABG O2 Saturation 95.5 ABG Base Excess 2.9 FiO2 21% Sodium 141.4 Potassium 4.6 Chloride 103 Carbon Dioxide 29 Anion Gap 9 BUN 58 H Creatinine 2.48 H Est GFR ( Amer) 26 L Est GFR (Non-Af Amer) 21 L Glucose 100 Calcium 8.7 Total Bilirubin 0.4 AST 18 ALT 20 Alkaline Phosphatase 146 H Total Protein 5.5 L Albumin 3.0 L 04/26/18 05:21 WBC RBC Hgb Hct MCV MCH MCHC RDW Plt Count Seg Neutrophils % Lymphocytes % Monocytes % Eosinophils % Basophils % Absolute Neutrophils Absolute Lymphocytes Absolute Monocytes Absolute Eosinophils Absolute Basophils Carbonic Acid HCO3/H2CO3 Ratio ABG pH ABG pCO2 ABG pO2 ABG HCO3 ABG O2 Saturation ABG Base Excess FiO2 Sodium 141.4 Potassium 4.6 Chloride 105 Carbon Dioxide 26 Anion Gap 10 BUN 64 H Creatinine 2.66 H Est GFR ( Amer) 24 L Est GFR (Non-Af Amer) 20 L Glucose 86 Calcium 8.5 Total Bilirubin 0.3 AST 19 ALT 19 Alkaline Phosphatase 145 H Total Protein 5.0 L Albumin 2.6 L 04/23/18 08:40 Pleural Fluid - Not Specified AFB Smear Concentration - Final 04/23/18 08:40 Pleural Fluid - Not Specified Acid Fast Bacilli Smear - Final 04/18/18 04/18/18 04/18/18 12:40 19:10 19:10 Creatine Kinase 270 H CK-MB (CK-2) 2.57 Troponin I 0.042 0.038 NT-Pro-B Natriuret Pep 04/19/18 04/19/18 04/19/18 00:50 00:50 06:50 Creatine Kinase 163 H 187 H CK-MB (CK-2) 2.10 Troponin I 0.039 NT-Pro-B Natriuret Pep 04/19/18 06:50 Creatine Kinase CK-MB (CK-2) 2.16 Troponin I 0.032 NT-Pro-B Natriuret Pep 77573 H Impressions: Abdomen Ultrasound 04/21/18 16:35 IMPRESSION: No intra-abdominal ascitic fluid was identified. Chest X-Ray 04/26/18 00:00 IMPRESSION: STABLE APPEARANCE OF THE CHEST. NO PNEUMOTHORAX 2 HOURS FOLLOWING THORACENTESIS. Thoracentesis Ultrasound 04/26/18 00:00 IMPRESSION: SUCCESSFUL THORACENTESIS USING ULTRASOUND GUIDANCE. Assessment & Plan - Diagnosis (1) Change in bowel habits Plan: will try to get old records if a colonoscopy has already been done in the previous 5 years , no clear indication for that moreover, patient has severe CHF, I do not think that she will tolerate nor do well with conscious sedation will get cardiac clearance first then will see if Anesthesia will be able to sedate - Time Time Spent: 50 to 70 Minutes
--- NOTE | 2018-04-26 18:26 | PDOC CONSULTATION ---
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 She has been appropriately treated with intravenous diuretics and control of blood pressure. She is since admission underwent bilateral thoracentesis. Presently feeling better than when she came in. She has been taking daily advil pm on many days. Says was watching diet. She also mentions loose stools daily without any blood. She is unsure of her last colonoscopy. She continues to have menorrhagia and says tat the Provera has failed her. Apparently Obgyn has been unwilling to take her up for a Hysterectomy. She denies any history of chest pains, coughing spells, fever or chills. Labs and medications were reviewed with the patient. Past Medical History Cardiac Medical History: Reports: Coronary Artery Disease, Hypertension-primary , Myocardial Infarction Pulmonary Medical History: Denies: Tuberculosis Neurological Medical History: Denies: Seizures Endocrine Medical History: Reports: Diabetes Mellitus Type 2 - non compliant ( pt has snacks in her suitcase etc) Renal/ Medical History: Reports: Chronic Kidney Disease Stage IV GI Medical History: Reports: Gastroesophageal Reflux Disease Psychiatric Medical History: Reports: Depression Past Surgical History Past Surgical History: Reports: Cardiac Catheterization - stent x1, Coronary Stent, Pacemaker - AICD Denies: Hysterectomy Social History Lives with: Family Smoking Status: Former Smoker Frequency of Alcohol Use: None Hx Recreational Drug Use: No Drugs: None Hx Prescription Drug Abuse: No - Advance Directive Resuscitation Status: Full Code Family History Parental Family History Reviewed: Yes - Negative for ESRD Children Family History Reviewed: No Sibling(s) Family History Reviewed.: No Medication/Allergy Home Medications: Allopurinol [Zyloprim 100 mg Tablet] 100 mg PO DAILY 11/25/16 Docusate Sodium [Colace 100 mg Capsule] 100 mg PO BIDP PRN 11/25/16 Omeprazole 40 mg PO DAILY 11/25/16 Cholecalciferol (Vitamin D3) [Vitamin D3] 4,000 unit PO DAILY 05/04/17 Atorvastatin Calcium [Lipitor 80 mg Tablet] 80 mg PO QHS #90 tablet 05/09/17 Medroxyprogesterone Acet [Provera 10 mg Tablet] 10 mg PO DAILY 06/27/17 Amlodipine Besylate [Norvasc 10 mg Tablet] 10 mg PO DAILY 04/18/18 Aspirin [Aspirin EC] 81 mg PO DAILY 04/18/18 Bumetanide [Bumex 1 mg Tablet] 3 mg PO Q6AM 04/18/18 Carvedilol [Coreg 12.5 mg Tablet] 12.5 mg PO Q12 04/18/18 Doxepin HCl [Silenor] 6 mg PO QHS 04/18/18 Furosemide [Lasix] 80 mg PO TID 04/18/18 Gabapentin [Neurontin 300 mg Capsule] 600 mg PO Q8 04/18/18 Hydralazine HCl [Apresoline 50 mg Tablet] 50 mg PO Q8HP PRN 04/18/18 Isosorbide Dinitrate 60 mg PO TID@,,18 04/18/18 Lutein [Natural Lutein] 20 mg PO DAILY 04/18/18 Sacubitril/Valsartan [Entresto 97 mg-103 mg Tablet] 1 each PO Q12 04/18/18 Vitamin E [Natural Vitamin E] 400 unit PO DAILY 04/18/18 Lubiprostone [Amitiza 24 Mcg Capsule] 24 mcg PO BIDP PRN #60 capsule 04/29/18 Simethicone [Mylicon 80 mg Chewable Tablet] 80 mg PO QIDP PRN tab.chew Tramadol HCl [Ultram 50 mg Tablet] 50 mg PO Q6HP PRN #60 tablet 04/29/18 Allergies/Adverse Reactions: hydrocodone bitartrate [From Vicodin] Allergy (Verified 06/26/17 18:25) Hives hydromorphone HCl [From Dilaudid] Allergy (Verified 06/26/17 18:25) Hives levofloxacin [From Levaquin] Allergy (Verified 06/26/17 18:25) Hives oxycodone HCl [From Percocet] Allergy (Verified 06/26/17 18:25) Hives tramadol [Tramadol] Allergy (Verified 06/26/17 18:25) Hives Review of Systems Constitutional: PRESENT: fatigue, headache(s), weakness. ABSENT: fever(s) Nose, Mouth, and Throat: ABSENT: mouth pain, sore throat Cardiovascular: PRESENT: dyspnea on exertion, edema, orthropnea. ABSENT: chest pain Respiratory: PRESENT: dyspnea. ABSENT: cough, hemoptysis Gastrointestinal: PRESENT: diarrhea. ABSENT: abdominal pain, coffee ground emesis, constipation, dysphagia, heartburn, hematemesis, hematochezia Genitourinary: ABSENT: dysuria, hematuria Neurological: ABSENT: abnormal gait, abnormal movements, abnormal speech, confusion, convulsions, focal weakness Endocrine: PRESENT: menstrual abnormalities Hematologic/Lymphatic: ABSENT: easy bruising, lymphadenopathy Physical Exam Vital Signs: Temp Pulse Resp BP Pulse Ox 97.8 F 70 16 127/89 H 99 04/26/18 11:47 04/26/18 14:00 04/26/18 11:47 04/26/18 11:47 04/26/18 12:40 Intake & Output 04/25/18 04/26/18 04/27/18 06:59 06:59 06:59 Intake Total 1689 1397 237 Output Total 2450 2880 1000 Balance -761 -1483 -763 Weight 104.9 kg 104.2 kg General appearance: PRESENT: no acute distress Eye exam: PRESENT: conjunctiva pink, EOMI, PERRLA. ABSENT: scleral icterus Ear exam: PRESENT: normal external ear exam Mouth exam: PRESENT: moist, neck supple Neck exam: ABSENT: lymphadenopathy, meningismus, tenderness, thyromegaly, tracheal deviation Respiratory exam: PRESENT: clear to auscultation abdi. ABSENT: crackles, rhonchi Cardiovascular exam: PRESENT: +S1, +S2 GI/Abdominal exam: PRESENT: normal bowel sounds, soft. ABSENT: organomegaly, tenderness Extremities exam: PRESENT: pedal edema Neurological exam: PRESENT: alert, awake, oriented to person, oriented to place , oriented to time Skin exam: ABSENT: cyanosis, erythema, mottled, rash Results Laboratory Results: 04/25/18 13:30 04/26/18 05:21 04/25/18 04/26/18 16:55 05:21 Carbonic Acid 1.18 HCO3/H2CO3 Ratio 22:1 ABG pH 7.46 H ABG pCO2 39.1 ABG pO2 73.6 L ABG HCO3 26.9 H ABG O2 Saturation 95.5 ABG Base Excess 2.9 FiO2 21% Sodium 141.4 Potassium 4.6 Chloride 105 Carbon Dioxide 26 Anion Gap 10 BUN 64 H Creatinine 2.66 H Est GFR ( Amer) 24 L Est GFR (Non-Af Amer) 20 L Glucose 86 Calcium 8.5 Total Bilirubin 0.3 AST 19 ALT 19 Alkaline Phosphatase 145 H Total Protein 5.0 L Albumin 2.6 L 04/23/18 08:40 Pleural Fluid - Not Specified AFB Smear Concentration - Final 04/23/18 08:40 Pleural Fluid - Not Specified Acid Fast Bacilli Smear - Final 04/18/18 04/18/18 04/18/18 12:40 19:10 19:10 Creatine Kinase 270 H CK-MB (CK-2) 2.57 Troponin I 0.042 0.038 NT-Pro-B Natriuret Pep 04/19/18 04/19/18 04/19/18 00:50 00:50 06:50 Creatine Kinase 163 H 187 H CK-MB (CK-2) 2.10 Troponin I 0.039 NT-Pro-B Natriuret Pep 04/19/18 06:50 Creatine Kinase CK-MB (CK-2) 2.16 Troponin I 0.032 NT-Pro-B Natriuret Pep 00818 H Impressions: Abdomen Ultrasound 04/21/18 16:35 IMPRESSION: No intra-abdominal ascitic fluid was identified. Chest X-Ray 04/26/18 00:00 IMPRESSION: STABLE APPEARANCE OF THE CHEST. NO PNEUMOTHORAX 2 HOURS FOLLOWING THORACENTESIS. Thoracentesis Ultrasound 04/26/18 00:00 IMPRESSION: SUCCESSFUL THORACENTESIS USING ULTRASOUND GUIDANCE. Assessment & Plan - Diagnosis (1) Proteinuria Plan: Does not look nephrotic on UA.Quantify.Monitor. (2) Chronic kidney disease, stage 4 (severe) Is this a current diagnosis for this admission?: Yes Plan: Was earlier fluid overloaded and now stable. 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 (3) CHF exacerbation Qualifiers: Heart failure type: unspecified Qualified Code(s): I50.9 - Heart failure, unspecified Plan: Bi Ventricular.Systolic/diastolic..Continue on current meds. (4) Cardiomyopathy Qualifiers: Cardiomyopathy type: ischemic Qualified Code(s): I25.5 - Ischemic cardiomyopathy Is this a current diagnosis for this admission?: Yes Plan: Ischemic.Decompensated but improving. (5) Acute combined systolic (congestive) and diastolic (congestive) heart failure Plan: Improving. (6) Focal segmental glomerulosclerosis Is this a current diagnosis for this admission?: Yes Plan: Was an earlier diagnosis.Check and quantify proteinuria. (7) Hypertension Qualifiers: Hypertension type: essential hypertension Qualified Code(s): I10 - Essential (primary) hypertension Is this a current diagnosis for this admission?: Yes Plan: Stable. (8) Pulmonary hypertension Plan: Stable. (9) Type 2 diabetes mellitus Qualifiers: Diabetes mellitus custodial insulin use: without terminal computer operator use Diabetes mellitus complication status: with unspecified complications Qualified Code(s) : E11.8 - Type 2 diabetes mellitus with unspecified complications Is this a current diagnosis for this admission?: Yes (10) Obesity Plan: Was morbidly Obese but has lost lots of weight and that seems to have helped her overall.
--- NOTE | 2018-04-26 20:33 | PDOC PROGRESS REPORT ---
Subjective Progress Note for:: 04/26/18 Subjective:: She had an arthrocentesis done today, she was seen by nephrology and GI in consultation Reason For Visit: ACUTE ON CHRONIC COMBINED CHF Physical Exam Vital Signs: Temp Pulse Resp BP Pulse Ox 98.7 F 71 16 109/64 96 04/26/18 19:29 04/26/18 19:29 04/26/18 19:29 04/26/18 19:29 04/26/18 19:29 Intake & Output 04/25/18 04/26/18 04/27/18 06:59 06:59 06:59 Intake Total 1689 1397 826 Output Total 2450 5420 0685 Balance -943 -2472 -352 Weight 104.9 kg 104.2 kg General appearance: PRESENT: no acute distress Eye exam: PRESENT: PERRLA Respiratory exam: PRESENT: crackles Cardiovascular exam: PRESENT: +S1, +S2 Murmur grade: 3 GI/Abdominal exam: PRESENT: soft Neurological exam: PRESENT: alert, CN II-XII grossly intact Results Laboratory Results: 04/25/18 13:30 04/26/18 05:21 04/26/18 05:21 Sodium 141.4 Potassium 4.6 Chloride 105 Carbon Dioxide 26 Anion Gap 10 BUN 64 H Creatinine 2.66 H Est GFR ( Amer) 24 L Est GFR (Non-Af Amer) 20 L Glucose 86 Calcium 8.5 Total Bilirubin 0.3 AST 19 ALT 19 Alkaline Phosphatase 145 H Total Protein 5.0 L Albumin 2.6 L 04/18/18 04/18/18 04/18/18 12:40 19:10 19:10 Creatine Kinase 270 H CK-MB (CK-2) 2.57 Troponin I 0.042 0.038 NT-Pro-B Natriuret Pep 04/19/18 04/19/18 04/19/18 00:50 00:50 06:50 Creatine Kinase 163 H 187 H CK-MB (CK-2) 2.10 Troponin I 0.039 NT-Pro-B Natriuret Pep 04/19/18 06:50 Creatine Kinase CK-MB (CK-2) 2.16 Troponin I 0.032 NT-Pro-B Natriuret Pep [id number] H Impressions: Abdomen Ultrasound 04/21/18 16:35 IMPRESSION: No intra-abdominal ascitic fluid was identified. Chest X-Ray 04/26/18 00:00 IMPRESSION: STABLE APPEARANCE OF THE CHEST. NO PNEUMOTHORAX 2 HOURS FOLLOWING THORACENTESIS. Thoracentesis Ultrasound 04/26/18 00:00 IMPRESSION: SUCCESSFUL THORACENTESIS USING ULTRASOUND GUIDANCE. Assessment & Plan - Diagnosis (1) Acute systolic heart failure Is this a current diagnosis for this admission?: Yes (2) Nephrotic syndrome Is this a current diagnosis for this admission?: Yes (3) Cardiomyopathy Qualifiers: Cardiomyopathy type: ischemic Qualified Code(s): I25.5 - Ischemic cardiomyopathy Is this a current diagnosis for this admission?: Yes (4) Low back pain Qualifiers: Chronicity: unspecified Back pain laterality: unspecified Sciatica presence: without sciatica Qualified Code(s): M54.5 - Low back pain Is this a current diagnosis for this admission?: Yes (5) Acute on chronic combined systolic and diastolic CHF, NYHA class 3 Is this a current diagnosis for this admission?: Yes (6) Anasarca Is this a current diagnosis for this admission?: Yes (7) Chronic kidney disease, stage 4 (severe) Is this a current diagnosis for this admission?: Yes (8) Focal segmental glomerulosclerosis Is this a current diagnosis for this admission?: Yes (9) Hypertension Qualifiers: Hypertension type: essential hypertension Qualified Code(s): I10 - Essential (primary) hypertension Is this a current diagnosis for this admission?: Yes (10) Pulmonary hypertension Is this a current diagnosis for this admission?: Yes (11) Mitral regurgitation Qualifiers: Cardiac valve disease etiology: etiology unspecified Qualified Code(s): I34.0 - Nonrheumatic mitral (valve) insufficiency Is this a current diagnosis for this admission?: Yes (12) Type 2 diabetes mellitus Qualifiers: Diabetes mellitus intermediate card tender insulin use: without residential use Diabetes mellitus complication status: with unspecified complications Qualified Code(s) : E11.8 - Type 2 diabetes mellitus with unspecified complications Is this a current diagnosis for this admission?: Yes
[2018-04-27] MEDS: GABAPENTIN 300 MG CAPSULE PO SCH ×3 (05:21→21:30)
[2018-04-27] MEDS: BUMETANIDE 1 MG TABLET PO SCH (05:21)
[2018-04-27] MEDS: ISOSORBIDE DINITRATE 20 MG TABLET PO SCH ×3 (05:21→17:46)
[2018-04-27] MEDS: LANSOPRAZOLE 30 MG TAB.RAP.DR PO SCH (05:21)
[2018-04-27 05:31] LABS: ANION GAP 9 (5-19); BLOOD UREA NITROGEN 69 mg/dL (7-20); CALCIUM 8.3 mg/dL (8.4-10.2); CARBON DIOXIDE 28 mmol/L (22-30); CHLORIDE 103 mmol/L (98-107); GLUCOSE 78 mg/dL (75-110); POTASSIUM 4.5 mmol/L (3.6-5.0); SODIUM 140.1 mmol/L (137-145)
[2018-04-27] MEDS: ALLOPURINOL 100 MG TABLET PO SCH (10:03)
[2018-04-27] MEDS: CARVEDILOL 12.5 MG TABLET PO SCH ×2 (10:03→21:29)
[2018-04-27] MEDS: DIPHENHYDRAMINE HCL 25 MG CAPSULE PO PRN (10:03)
[2018-04-27] MEDS: TRAMADOL HCL 50 MG TABLET PO PRN (10:03)
[2018-04-27] MEDS: SIMETHICONE 80 MG TAB.CHEW PO PRN (10:03)
[2018-04-27] MEDS: CHOLECALCIFEROL (D3) 1,000 UNIT TABLET PO SCH (10:03)
[2018-04-27] MEDS: SACUBITRIL/VALSARTAN 97 MG/103 MG TABLET PO SCH ×2 (10:03→21:29)
[2018-04-27] MEDS: ASPIRIN 81 MG TABLET, ENT COATED PO SCH (10:03)
[2018-04-27] MEDS: FUROSEMIDE 80 MG TABLET PO SCH ×3 (10:04→17:46)
[2018-04-27] MEDS: ENOXAPARIN SODIUM INJ 40 MG/0.4 ML DISP.SYRIN SUBCUT SCH (10:04)
[2018-04-27] MEDS: AMLODIPINE BESYLATE 10 MG TABLET PO SCH (10:04)
[2018-04-27 11:59] LABS: UR PRO/CREAT RATIO RESULT 0.5 mg/mg (0.0-0.2); URINE CREATININE 43.8 mg/dL (15-278); URINE PROTEIN 20.8 mg/dL (<12)
--- NOTE | 2018-04-27 12:38 | Progress Note ---
Provider Note Provider Note: I received a call from Dr Pal stated that patient can undergo colonoscopy with anesthesia back up will schedule for tomorrow will get orders written for her
[2018-04-27] MEDS ORDERED: PEG 3350/NA SULF,BICARB,CL/KCL 4000 ML PO ONE (16:00)
--- NOTE | 2018-04-27 16:10 | PDOC PROGRESS REPORT ---
Subjective Progress Note for:: 04/27/18 Subjective:: Patient was sitting up comfortably in her bed during examination. She admits to occasional shortness of breath. She also admitted that at home she sometimes would go days without eating due to her depression. Reason For Visit: ACUTE ON CHRONIC COMBINED CHF Physical Exam Vital Signs: Temp Pulse Resp BP Pulse Ox 98.3 F 71 20 105/69 100 04/27/18 11:39 04/27/18 14:00 04/27/18 11:39 04/27/18 11:39 04/27/18 11:39 Intake & Output 04/26/18 04/27/18 04/28/18 06:59 06:59 06:59 Intake Total 1397 1772 Output Total 2880 2550 Balance -1483 -778 Weight 104.2 kg General appearance: PRESENT: no acute distress, well-developed, well-nourished Mouth exam: PRESENT: moist, neck supple Respiratory exam: PRESENT: clear to auscultation abdi. ABSENT: accessory muscle use, crackles, rales, rhonchi, wheezes Cardiovascular exam: PRESENT: +S1, +S2 GI/Abdominal exam: PRESENT: normal bowel sounds, soft. ABSENT: organomegaly, tenderness Extremities exam: PRESENT: pedal edema - -trace+. ABSENT: tenderness, +1 edema , +2 edema Musculoskeletal exam: PRESENT: normal inspection. ABSENT: tenderness Neurological exam: PRESENT: alert, awake, oriented to person, oriented to place , oriented to time, oriented to situation Psychiatric exam: PRESENT: depressed Skin exam: PRESENT: dry, intact, warm. ABSENT: cyanosis Results Laboratory Results: 04/25/18 13:30 04/27/18 04:46 04/27/18 04:46 Sodium 140.1 Potassium 4.5 Chloride 103 Carbon Dioxide 28 Anion Gap 9 BUN 69 H Creatinine 2.48 H Est GFR ( Amer) 26 L Est GFR (Non-Af Amer) 21 L Glucose 78 Calcium 8.3 L 04/23/18 08:40 Pleural Fluid Fungal Smear - Final 04/23/18 08:40 Pleural Fluid Fungal Smear - Final 04/23/18 08:40 Pleural Fluid - Not Specified Gram Stain - Final 04/23/18 08:40 Pleural Fluid - Not Specified Body Fluid Culture - Final NO AEROBIC OR ANAEROBIC ORGANISMS RECOVERED 04/18/18 04/18/18 04/18/18 12:40 19:10 19:10 Creatine Kinase 270 H CK-MB (CK-2) 2.57 Troponin I 0.042 0.038 NT-Pro-B Natriuret Pep 04/19/18 04/19/18 04/19/18 00:50 00:50 06:50 Creatine Kinase 163 H 187 H CK-MB (CK-2) 2.10 Troponin I 0.039 NT-Pro-B Natriuret Pep 04/19/18 06:50 Creatine Kinase CK-MB (CK-2) 2.16 Troponin I 0.032 NT-Pro-B Natriuret Pep [id number] H Impressions: Abdomen Ultrasound 04/21/18 16:35 IMPRESSION: No intra-abdominal ascitic fluid was identified. Chest X-Ray 04/26/18 00:00 IMPRESSION: STABLE APPEARANCE OF THE CHEST. NO PNEUMOTHORAX 2 HOURS FOLLOWING THORACENTESIS. Thoracentesis Ultrasound 04/26/18 00:00 IMPRESSION: SUCCESSFUL THORACENTESIS USING ULTRASOUND GUIDANCE. Assessment & Plan - Diagnosis (1) Chronic kidney disease, stage 4 (severe) Plan: looks to be at baseline (2) Pleural effusion Plan: most likely due to hypoalbuminia from malnutrition from her depression. (3) Focal segmental glomerulosclerosis Is this a current diagnosis for this admission?: Yes Plan: stable (4) Proteinuria Plan: upc showed only 500mg of proteinuria per a day. Improved from her past. Not nephrotic level. (5) CHF exacerbation Qualifiers: Heart failure type: unspecified Qualified Code(s): I50.9 - Heart failure, unspecified Plan: looks to have almost resolved; needs to be more compliant with medications (6) Change in bowel habits Plan: gets a colonoscopy soon. (7) Obesity Plan: looks to have lost a lot of weight. Advised on the need to keep losing weight. (8) Peripheral edema Plan: improving (9) Hypoalbuminemia due to protein-calorie malnutrition Plan: due to not eating much, she admits to not having a high protein intake. (10) Hypertension Qualifiers: Hypertension type: essential hypertension Qualified Code(s): I10 - Essential (primary) hypertension Is this a current diagnosis for this admission?: Yes Plan: stable (11) Type 2 diabetes mellitus Qualifiers: Diabetes mellitus senior care insulin use: without senior care use Diabetes mellitus complication status: with unspecified complications Qualified Code(s) : E11.8 - Type 2 diabetes mellitus with unspecified complications Is this a current diagnosis for this admission?: Yes (12) Low back pain Qualifiers: Chronicity: unspecified Back pain laterality: unspecified Sciatica presence: without sciatica Qualified Code(s): M54.5 - Low back pain Is this a current diagnosis for this admission?: Yes
--- NOTE | 2018-04-27 21:41 | PDOC PROGRESS REPORT ---
Subjective Progress Note for:: 04/27/18 Subjective:: She is getting colonoscopy tomorrow Reason For Visit: ACUTE ON CHRONIC COMBINED CHF Physical Exam Vital Signs: Temp Pulse Resp BP Pulse Ox 97.4 F 77 18 112/61 99 04/27/18 19:34 04/27/18 19:34 04/27/18 19:34 04/27/18 19:34 04/27/18 19:34 Intake & Output 04/26/18 04/27/18 04/28/18 06:59 06:59 06:59 Intake Total 1397 1772 1046 Output Total 2880 2550 9461 Balance -1483 -778 -454 Weight 104.2 kg General appearance: PRESENT: no acute distress Eye exam: PRESENT: PERRLA Respiratory exam: PRESENT: clear to auscultation abdi Cardiovascular exam: PRESENT: +S1, +S2 Murmur grade: 3 GI/Abdominal exam: PRESENT: soft Neurological exam: PRESENT: alert Results Laboratory Results: 04/25/18 13:30 04/27/18 04:46 04/27/18 04:46 Sodium 140.1 Potassium 4.5 Chloride 103 Carbon Dioxide 28 Anion Gap 9 BUN 69 H Creatinine 2.48 H Est GFR ( Amer) 26 L Est GFR (Non-Af Amer) 21 L Glucose 78 Calcium 8.3 L 04/23/18 08:40 Pleural Fluid Fungal Smear - Final 04/23/18 08:40 Pleural Fluid Fungal Smear - Final 04/23/18 08:40 Pleural Fluid - Not Specified Gram Stain - Final 04/23/18 08:40 Pleural Fluid - Not Specified Body Fluid Culture - Final NO AEROBIC OR ANAEROBIC ORGANISMS RECOVERED 04/18/18 04/18/18 04/18/18 12:40 19:10 19:10 Creatine Kinase 270 H CK-MB (CK-2) 2.57 Troponin I 0.042 0.038 NT-Pro-B Natriuret Pep 04/19/18 04/19/18 04/19/18 00:50 00:50 06:50 Creatine Kinase 163 H 187 H CK-MB (CK-2) 2.10 Troponin I 0.039 NT-Pro-B Natriuret Pep 04/19/18 06:50 Creatine Kinase CK-MB (CK-2) 2.16 Troponin I 0.032 NT-Pro-B Natriuret Pep 20608 H Impressions: Abdomen Ultrasound 04/21/18 16:35 IMPRESSION: No intra-abdominal ascitic fluid was identified. Chest X-Ray 04/26/18 00:00 IMPRESSION: STABLE APPEARANCE OF THE CHEST. NO PNEUMOTHORAX 2 HOURS FOLLOWING THORACENTESIS. Thoracentesis Ultrasound 04/26/18 00:00 IMPRESSION: SUCCESSFUL THORACENTESIS USING ULTRASOUND GUIDANCE. Assessment & Plan - Diagnosis (1) Acute systolic heart failure Is this a current diagnosis for this admission?: Yes (2) Nephrotic syndrome Is this a current diagnosis for this admission?: Yes (3) Cardiomyopathy Qualifiers: Cardiomyopathy type: ischemic Qualified Code(s): I25.5 - Ischemic cardiomyopathy Is this a current diagnosis for this admission?: Yes (4) Low back pain Qualifiers: Chronicity: unspecified Back pain laterality: unspecified Sciatica presence: without sciatica Qualified Code(s): M54.5 - Low back pain Is this a current diagnosis for this admission?: Yes (5) Acute on chronic combined systolic and diastolic CHF, NYHA class 3 Is this a current diagnosis for this admission?: Yes (6) Anasarca Is this a current diagnosis for this admission?: Yes (7) Chronic kidney disease, stage 4 (severe) Is this a current diagnosis for this admission?: Yes (8) Focal segmental glomerulosclerosis Is this a current diagnosis for this admission?: Yes (9) Hypertension Qualifiers: Hypertension type: essential hypertension Qualified Code(s): I10 - Essential (primary) hypertension Is this a current diagnosis for this admission?: Yes (10) Pulmonary hypertension Is this a current diagnosis for this admission?: Yes (11) Mitral regurgitation Qualifiers: Cardiac valve disease etiology: etiology unspecified Qualified Code(s): I34.0 - Nonrheumatic mitral (valve) insufficiency Is this a current diagnosis for this admission?: Yes (12) Type 2 diabetes mellitus Qualifiers: Diabetes mellitus usp insulin use: without usp use Diabetes mellitus complication status: with unspecified complications Qualified Code(s) : E11.8 - Type 2 diabetes mellitus with unspecified complications Is this a current diagnosis for this admission?: Yes
[2018-04-28] MEDS: ISOSORBIDE DINITRATE 20 MG TABLET PO SCH ×3 (05:01→18:18)
[2018-04-28] MEDS: GABAPENTIN 300 MG CAPSULE PO SCH ×3 (05:01→22:36)
[2018-04-28] MEDS: LANSOPRAZOLE 30 MG TAB.RAP.DR PO SCH (05:01)
[2018-04-28] MEDS: BUMETANIDE 1 MG TABLET PO SCH (05:01)
[2018-04-28 06:43] LABS: ANION GAP 11 (5-19); BLOOD UREA NITROGEN 69 mg/dL (7-20); CALCIUM 8.4 mg/dL (8.4-10.2); CARBON DIOXIDE 27 mmol/L (22-30); CHLORIDE 101 mmol/L (98-107); GLUCOSE 86 mg/dL (75-110); POTASSIUM 4.3 mmol/L (3.6-5.0); SODIUM 138.9 mmol/L (137-145)
[2018-04-28 08:58] LABS: HEMATOCRIT 32.4 % (36.0-47.0); HEMOGLOBIN 10.4 g/dL (12.0-15.5); MEAN CORPUSCULAR HEMOGLOBIN 26.7 pg (27.0-33.4); MEAN CORPUSCULAR VOLUME 83 fl (80-97); PLATELET COUNT 194 10^3/uL (150-450); RED BLOOD COUNT 3.88 10^6/uL (3.72-5.28); WHITE BLOOD COUNT 3.1 10^3/uL (4.0-10.5)
[2018-04-28] MEDS: AMLODIPINE BESYLATE 10 MG TABLET PO SCH (09:25)
[2018-04-28] MEDS: CARVEDILOL 12.5 MG TABLET PO SCH ×2 (09:27→22:36)
[2018-04-28] MEDS: FUROSEMIDE 80 MG TABLET PO SCH ×3 (09:27→18:18)
[2018-04-28] MEDS: ASPIRIN 81 MG TABLET, ENT COATED PO SCH (09:28)
[2018-04-28] MEDS: SACUBITRIL/VALSARTAN 97 MG/103 MG TABLET PO SCH ×2 (09:28→22:36)
[2018-04-28] MEDS: ALLOPURINOL 100 MG TABLET PO SCH (09:29)
[2018-04-28] MEDS: CHOLECALCIFEROL (D3) 1,000 UNIT TABLET PO SCH (09:29)
[2018-04-28] MEDS ORDERED: PROPOFOL INJ 200 MG/20 ML VIAL IV ONE (09:46)
[2018-04-28] MEDS ORDERED: LIDOCAINE 2% INJ-PF (100 MG/5 ML) SYRINGE ONE (09:46)
--- NOTE | 2018-04-28 09:54 | PDOC PROGRESS REPORT ---
Subjective Progress Note for:: 04/28/18 Subjective:: Patient was seen sitting on the side of her bed. At the time she was irritated and upset because she could not finish the go lightly. She also was upset because she did not sleep well. Currently she is scheduled for a colonoscopy today. She denies chest pain, fevers, chills, n/v/c. She is having some shortness of breath when the nasal cannula falls off her nose. Reason For Visit: ACUTE ON CHRONIC COMBINED CHF Physical Exam Vital Signs: Temp Pulse Resp BP Pulse Ox 98.5 F 70 18 109/64 97 04/28/18 08:07 04/28/18 08:07 04/28/18 08:07 04/28/18 08:07 04/28/18 08:07 Intake & Output 04/27/18 04/28/18 04/29/18 06:59 06:59 06:59 Intake Total 1772 1046 Output Total 2550 1695 Balance -778 -1429 Weight 104.5 kg General appearance: PRESENT: no acute distress, well-developed, well-nourished Mouth exam: PRESENT: moist, neck supple Neck exam: PRESENT: full ROM. ABSENT: JVD Respiratory exam: PRESENT: clear to auscultation abdi. ABSENT: accessory muscle use, crackles, rales, rhonchi, wheezes Cardiovascular exam: PRESENT: +S1, +S2 GI/Abdominal exam: PRESENT: normal bowel sounds, soft. ABSENT: organomegaly, tenderness Extremities exam: PRESENT: pedal edema, +1 edema. ABSENT: tenderness, +2 edema Musculoskeletal exam: ABSENT: normal inspection, tenderness Neurological exam: PRESENT: alert, awake, oriented to person, oriented to place , oriented to time, oriented to situation Psychiatric exam: PRESENT: agitated, anxious Skin exam: PRESENT: dry, intact, warm. ABSENT: cyanosis Results Laboratory Results: 04/28/18 05:58 04/28/18 05:58 04/28/18 04/28/18 05:58 05:58 WBC 3.1 L RBC 3.88 Hgb 10.4 L Hct 32.4 L MCV 83 MCH 26.7 L MCHC 32.0 RDW 18.0 H Plt Count 194 Sodium 138.9 Potassium 4.3 Chloride 101 Carbon Dioxide 27 Anion Gap 11 BUN 69 H Creatinine 2.40 H Est GFR ( Amer) 27 L Est GFR (Non-Af Amer) 22 L Glucose 86 Calcium 8.4 04/23/18 08:40 Pleural Fluid Fungal Smear - Final 04/23/18 08:40 Pleural Fluid Fungal Smear - Final 04/23/18 08:40 Pleural Fluid - Not Specified Gram Stain - Final 04/23/18 08:40 Pleural Fluid - Not Specified Body Fluid Culture - Final NO AEROBIC OR ANAEROBIC ORGANISMS RECOVERED 04/18/18 04/18/18 04/18/18 12:40 19:10 19:10 Creatine Kinase 270 H CK-MB (CK-2) 2.57 Troponin I 0.042 0.038 NT-Pro-B Natriuret Pep 04/19/18 04/19/18 04/19/18 00:50 00:50 06:50 Creatine Kinase 163 H 187 H CK-MB (CK-2) 2.10 Troponin I 0.039 NT-Pro-B Natriuret Pep 04/19/18 06:50 Creatine Kinase CK-MB (CK-2) 2.16 Troponin I 0.032 NT-Pro-B Natriuret Pep [id number] H Impressions: Abdomen Ultrasound 04/21/18 16:35 IMPRESSION: No intra-abdominal ascitic fluid was identified. Chest X-Ray 04/26/18 00:00 IMPRESSION: STABLE APPEARANCE OF THE CHEST. NO PNEUMOTHORAX 2 HOURS FOLLOWING THORACENTESIS. Thoracentesis Ultrasound 04/26/18 00:00 IMPRESSION: SUCCESSFUL THORACENTESIS USING ULTRASOUND GUIDANCE. Assessment & Plan - Diagnosis (1) Chronic kidney disease, stage 4 (severe) Plan: stable at 2.4 (2) Pleural effusion Plan: most likely due to hypoalbuminia from malnutrition from when she is depressed. (3) Focal segmental glomerulosclerosis Is this a current diagnosis for this admission?: Yes Plan: stable (4) Proteinuria Plan: upc showed only 500mg of proteinuria per a day. Improved from her past. Not nephrotic level. (5) CHF exacerbation Qualifiers: Heart failure type: unspecified Qualified Code(s): I50.9 - Heart failure, unspecified Plan: looks to have almost resolved; needs to be more compliant with medications (6) Change in bowel habits Plan: colonoscopy today; fleet enemas are contraindicated in CKD patients due to the severe absorption of phosphorous. (8) Peripheral edema Plan: on loop diuretics (10) Hypertension Qualifiers: Hypertension type: essential hypertension Qualified Code(s): I10 - Essential (primary) hypertension Is this a current diagnosis for this admission?: Yes (11) Type 2 diabetes mellitus Qualifiers: Diabetes mellitus group home insulin use: without group home use Diabetes mellitus complication status: with unspecified complications Qualified Code(s) : E11.8 - Type 2 diabetes mellitus with unspecified complications Is this a current diagnosis for this admission?: Yes (12) Low back pain Qualifiers: Chronicity: unspecified Back pain laterality: unspecified Sciatica presence: without sciatica Qualified Code(s): M54.5 - Low back pain Is this a current diagnosis for this admission?: Yes
--- NOTE | 2018-04-28 10:58 | CONSULTATION REPORT E ---
Consultation Report NAME: BERONICA YEUNG : 1975 AGE: 43Y DATE: 04/27/2018 321 B TO: SCOT CASIANO M.D. FROM: VU GUZMAN M.D. Requesting Physician TIME OF VISIT: Patient seen at 2:00 p.m. REASON FOR CONSULTATION: A patient with cardiomyopathy, congestive heart failure, AICD placement, coronary artery disease, and elevated BNP. Patient for pre-procedure cardiac risk assessment for colonoscopy. HISTORY OF PRESENT ILLNESS: Note: Chart reviewed. Patient interviewed and examined. Patient is a moderately-obese 43-year-old female with a history of coronary artery disease, NJ, history of stent placement, history of hypertension, history of cardiomyopathy with severely reduced LV ejection fraction with several episodes of acute on chronic systolic and diastolic heart failure, and history of AICD placement who was admitted with noncardiac chest pain and shortness of breath and improved with BiPAP and other respiratory treatments and diuretics. She also had 2 on the right side which clearly showed a transudate and not an exudate, with most likely secondary to congestive heart failure. She has pretty much improved and also has some slight orthopnea but no further chest pain. Her chest pains on admission were noncardiac and her EKG shows atrial stents with ventricular paced rhythm and negative troponin I and negative CPK-MBs. There is no firing of the AICD. The patient has mild leg edema which is now improving and currently trace to mild. She has no PND. She has no palpitations. There are no clear-cut anginal symptoms. There is no syncope. There was no chest pain or discomfort. There were no palpitations. There was no PND or leg edema. There was no dizziness or near syncope. There were no palpitations. There were no recent symptoms of TIA or CVA. PAST MEDICAL HISTORY: Positive for history of hypertension, history of coronary artery disease, history of NJ, history of stent placement. History of cardiomyopathy with severely reduced LV ejection fraction, history of AICD with no recent firing of the AICD. No history of cardiac arrhythmia. No syncope. History of diabetes mellitus, not well controlled since the patient is noncompliant with diet and medication. She also has history of GERD and a history of depression. The patient denies history of sleep apnea. She has a past history of menorrhagia which now has resolved by itself. At that time, the patient was thought to be high risk for . PAST SURGICAL HISTORY: Positive for: 1. Cardiac catheterization. 2. Stent placement. 3. AICD placement. 4. She recently had a pacemaker battery change. FAMILY HISTORY: Positive for hypertension. SOCIAL HISTORY: The patient smoked in the past and has quit many years. There is no history of ETOH or street drug abuse. DISPOSITION: The patient is a FULL CODE. Her son is the surrogate healthcare decision maker. ALLERGIES: 1. HYDROCODONE. 2. HYDROMORPHONE. 3. LEVAQUIN. 4. OXYCODONE. 5. TRAMADOL. REVIEW OF SYSTEMS: CONSTITUTIONAL: Denies any fevers, chills or rigors. Complains of generalized fatigue and weakness. HEAD: Denies headaches or head injury. EYES: No history of amblyopia or diplopia. No history of amaurosis fugax. EARS: No history of hearing loss. No history of tinnitus. No history of recurrent ear infections. NOSE: No history of nosebleeds. No history of nasal polyps. MOUTH: No altered taste sensation. No ulcers in the mouth. No bleeding from the gums. THROAT: No odynophagia or dysphagia. No history of recurrent sore throats. SKIN: No pruritus. No yellowish discoloration of the skin. No eczema. NECK: Denies neck pain. No thyromegaly. No swelling in the neck. No goiter. LUNGS: Denies history of asthma, COPD but the patient looks like she might have sleep apnea, but the patient denies it. I am not sure if she has had a sleep test. Recent symptoms of shortness of breath with chronic orthopnea. She had noncardiac chest pain, most likely, chest wall pain. This has resolved now. There is no pleuritic chest pain. There is no history of pulmonary embolism. No hemoptysis. She denies sleep apnea. CARDIAC: History of hypertension. History of coronary artery disease. History of NJ. History of stent placement. History of cardiomyopathy with severely reduced ejection fraction by echo, in 2017 showed an EF of 25-30%. She has an AICD placed. No firing of the AICD. She has no history of cardiac arrhythmia. No syncope. She has leg edema. She has history of acute on chronic systolic and diastolic left . No palpitations. GASTROINTESTINAL: History of GERD. No history of GI bleed. No history of jaundice or cirrhosis. No history of fatty food intolerance. The patient recently as been having loose stools and hence, desires a colonoscopy. Hence, the consult. There is no history of hematochezia, hematemesis or melena. There is no history of GI bleed. The patient denies any abdominal pain. The patient complains that the diarrhea is not foul smelling and it is loose. She has a history of irritable bowel syndrome. MUSCULOSKELETAL: Denies arthritis or collagen-vascular disease but does complain of pain in both knees. This may be because of the patient's obesity. METABOLIC: Denies gout. The patient is moderately obese. ENDOCRINE: History of diabetes mellitus, not well controlled. No history of thyroid disease. No history of polydipsia, polyuria. No history of heat or cold intolerance. No history of hirsutism. No history of excessive sweating. RENAL: History of chronic kidney disease, at present, stage 4. No symptoms of UTI. No history of hematuria, pyuria or dysuria. CENTRAL NERVOUS SYSTEM: No history of TIA or CVA. No history of headaches, migraines or seizures. PSYCHIATRIC: History of depression, states is well controlled with medication, and no history of anxiety. No history of suicidal ideation. No homicidal ideation. VASCULAR: No history of calf or buttocks claudication. No history of DVT. HEMATOLOGICAL: No history of bleeding diathesis. No history of clotting disorders. MEDICATIONS: 1. Acetaminophen 650 mg p.o. q. 4 hours p.r.n. 2. Allopurinol 100 mg p.o. daily. 3. Amlodipine 10 mg p.o. daily. 4. Aspirin 81 mg p.o. daily. 5. Bumex 3 mg p.o. q. 6:00 a.m. 6. Coreg 12.5 mg p.o. q. 12 hours. 7. Vitamin D 4000 units p.o. daily. 8. Hypoglycemic precautions with glucose 40% gel 15 g and 30 g p.o. p.r.n. hypoglycemia. 9. Dextrose 50% at 12.5 g and 25 g IV p.r.n. hypoglycemia. 10. Benadryl 50 mg p.o. q. 6 hours p.r.n. 11. Colace 100 mg p.o. b.i.d. 12. Glucagon 1 mg intramuscularly p.r.n. hypoglycemia. 13. Lovenox 40 mg subcutaneously daily. 14. Lasix 80 mg p.o. t.i.d. 15. Gabapentin/Neurontin 600 mg p.o. q. 8 hours. 16. Hydralazine 50 mg p.o. q. 8 hours p.r.n. 17. Accu-Cheks a.c. t.i.d. and adjust with sliding scale insulin coverage with regular insulin. 18. Isosorbide dinitrate 60 mg p.o. t.i.d. 19. Lansoprazole 30 mg p.o. 6:00 a.m. 20. Amitiza 24 mcg p.o. b.i.d. 21. Lutein 20 mg p.o. daily. 22. Entresto 97 mg/103 mg tablet p.o. q. 12 hours. 23. Simethicone 80 mg p.o. t.i.d. 24. TRAMADOL 50 mg p.o. q. 6 hours p.r.n. but THE PATIENT CLAIMS SHE IS ALLERGIC TO IT. PHYSICAL EXAMINATION: GENERAL: The patient is moderately obese, well groomed, at present in no acute distress. She is sitting up in the chair without any respiratory distress. VITAL SIGNS: She is afebrile with a temperature of 97.7 degrees Fahrenheit. Pulse is 73 beats per minute. Blood pressure 112/68. Respirations are 18 per minute. O2 sats are 96% on room air. HEENT: Head is atraumatic and normocephalic. Eyes: Pupils are equal, round, regular, reactive to light and accommodation. Extraocular movements are normal. There is no conjunctival pallor. There is no scleral icterus. Ears: Tympanic membranes are intact. External auditory canals are clear. Nose: There is no deviated nasal septum. There is no inflammation of the nasal mucous membranes. Mouth: Mucous membranes of the mouth are moist. Tongue is moist. There are no ulcers. There is no bleeding from the gums. Throat: There is no redness of the oropharynx. There are no exudates. SKIN: There are no skin rashes. There is no petechia or ecchymosis. There are no skin lesions. NECK: Supple. There is no JVD. Carotids are equal. There is no bruit. There is no lymphadenopathy. There is no goiter. Trachea central. LUNGS: Show diminished air entry, prolonged expiration due to the patient's obesity. Otherwise, there is some dullness in the base and also in the left base with absent breath sounds, representing pleural effusion. HEART: S1 and S2 is heard. There is no S3 gallop. There is no S4 gallop. There is a systolic murmur in the left sternal border on the apex. There is no rub. ABDOMEN: Soft and nontender. There is no hepatosplenomegaly. Bowel sounds are well heard. Abdomen is obese. Bowel sounds are normal. There are no tender areas or masses. There is no rebound, guarding or rigidity. EXTREMITIES: Femorals are very much deep, they are very much diminished. There are no femoral bruits. Leg pulses are diminished. There is trace to mild pedal edema. There is no cellulitis. There is no DVT or calf tenderness. There is no cyanosis or clubbing. CENTRAL NERVOUS SYSTEM: The patient is conscious, awake, alert, and oriented x3 with no focal deficits. PSYCHIATRIC: The patient's judgment and insight are intact. . She does have appear to be depressed by looking at her. DIAGNOSTICS: The patient's EKG shows atrial venting with a ventricular paced rhythm. The patient's chest x-ray shows a stable appearance of the chest, no pneumothorax, no pleural effusion, no heart failure. There is cardiomegaly present. The patient's sodium is 144.6 on 04/18/2018; on 04/27/2018, the patient's sodium is 130.1, potassium 4.5, chloride 103, CO2 is 28, the patient's BUN is 16, creatinine is 2.48, GFR is reduced at 26 which is chronic kidney disease stage 4, and her calcium is 8.3. Her liver function tests are normal except for elevated alk phos of 145. The patient's NT-proBNP is . The patient's albumin is 2.6, total protein is 5.0. The patient's CPK-MBs are negative. Her troponin I is 0.039 and 0.032. IMPRESSION: 1. Diarrhea, ? etiology. 2. History of irritable bowel syndrome. 3. Acute on chronic systolic and diastolic heart failure. 4. Coronary artery disease, history of NJ, no evidence of NJ this admission, history of stent placement in the past. 5. Cardiomyopathy, dilated/ischemic, at present, seems to be stable. 6. Pleural effusion, bilateral, most likely secondary to congestive heart failure. This has been resolved with . Continue diuretics. 7. Hypertension, blood pressure well controlled. 8. Diabetes mellitus type 2. 9. Chronic kidney disease, stage 4. 10. Moderate obesity. 11. Suspect obstructive sleep apnea. 12. Noncompliance with diet and medications. 13. Pre-procedural cardiac examination for risk assessment. RECOMMENDATIONS: Continue current treatment. The patient will be at acceptable/low risk for this procedure but would recommend the anesthesia to be given by . Discussed with the sight mounter. Discussed with the attending physician. Her medications have been reviewed. TIME SPENT: Of note, minutes was spent on this patient with more than 50% of the time spent on direct patient care. In view of the multiple comorbid disease, the medical decision making is of moderate to high complexity. I will follow with you. This has been discussed with the patient. Her medications have been reviewed. DICTATING PHYSICIAN: SCOT CASIANO M.D. [id number] PHY#: [id number] ID: [id number] JOB#: [id number] ACCT: [id number] cc:SCOT CASIANO M.D. >
[2018-04-28] MEDS ORDERED: FENTANYL CITRATE INJ/PF 100 MCG/2 ML AMPUL IV PRN ×2 (12:32)
[2018-04-28] MEDS ORDERED: ONDANSETRON HCL INJ/PF 4 MG/2 ML SDV IV PRN (12:32)
[2018-04-28] MEDS ORDERED: PROMETHAZINE HCL INJ 25 MG/1 ML VIAL IV PRN ×2 (12:32)
[2018-04-28] MEDS: ENOXAPARIN SODIUM INJ 40 MG/0.4 ML DISP.SYRIN SUBCUT SCH (14:09)
--- NOTE | 2018-04-28 17:32 | PDOC PROGRESS REPORT ---
Subjective Progress Note for:: 04/28/18 Subjective:: Patient was seen by the bedside, she had colonoscopy done today Reason For Visit: ACUTE ON CHRONIC COMBINED CHF Physical Exam Vital Signs: Temp Pulse Resp BP Pulse Ox 97.3 F 77 16 101/56 L 96 04/28/18 16:09 04/28/18 16:09 04/28/18 16:09 04/28/18 16:09 04/28/18 16:09 Intake & Output 04/27/18 04/28/18 04/29/18 06:59 06:59 06:59 Intake Total 1772 1046 550 Output Total 2550 4265 650 Balance -562 -5779 -100 Weight 104.5 kg General appearance: PRESENT: no acute distress Eye exam: PRESENT: PERRLA Respiratory exam: PRESENT: clear to auscultation abdi Cardiovascular exam: PRESENT: +S1, +S2 Murmur grade: 3 GI/Abdominal exam: PRESENT: soft Neurological exam: PRESENT: alert Results Laboratory Results: 04/28/18 05:58 04/28/18 05:58 04/28/18 04/28/18 05:58 05:58 WBC 3.1 L RBC 3.88 Hgb 10.4 L Hct 32.4 L MCV 83 MCH 26.7 L MCHC 32.0 RDW 18.0 H Plt Count 194 Sodium 138.9 Potassium 4.3 Chloride 101 Carbon Dioxide 27 Anion Gap 11 BUN 69 H Creatinine 2.40 H Est GFR ( Amer) 27 L Est GFR (Non-Af Amer) 22 L Glucose 86 Calcium 8.4 04/18/18 04/18/18 04/18/18 12:40 19:10 19:10 Creatine Kinase 270 H CK-MB (CK-2) 2.57 Troponin I 0.042 0.038 NT-Pro-B Natriuret Pep 04/19/18 04/19/18 04/19/18 00:50 00:50 06:50 Creatine Kinase 163 H 187 H CK-MB (CK-2) 2.10 Troponin I 0.039 NT-Pro-B Natriuret Pep 04/19/18 06:50 Creatine Kinase CK-MB (CK-2) 2.16 Troponin I 0.032 NT-Pro-B Natriuret Pep 64286 H Impressions: Abdomen Ultrasound 04/21/18 16:35 IMPRESSION: No intra-abdominal ascitic fluid was identified. Chest X-Ray 04/26/18 00:00 IMPRESSION: STABLE APPEARANCE OF THE CHEST. NO PNEUMOTHORAX 2 HOURS FOLLOWING THORACENTESIS. Thoracentesis Ultrasound 04/26/18 00:00 IMPRESSION: SUCCESSFUL THORACENTESIS USING ULTRASOUND GUIDANCE. Assessment & Plan - Diagnosis (1) Acute systolic heart failure Is this a current diagnosis for this admission?: Yes (2) Nephrotic syndrome Is this a current diagnosis for this admission?: Yes (3) Cardiomyopathy Qualifiers: Cardiomyopathy type: ischemic Qualified Code(s): I25.5 - Ischemic cardiomyopathy Is this a current diagnosis for this admission?: Yes (4) Low back pain Qualifiers: Chronicity: unspecified Back pain laterality: unspecified Sciatica presence: without sciatica Qualified Code(s): M54.5 - Low back pain Is this a current diagnosis for this admission?: Yes (5) Acute on chronic combined systolic and diastolic CHF, NYHA class 3 Is this a current diagnosis for this admission?: Yes (6) Anasarca Is this a current diagnosis for this admission?: Yes (7) Chronic kidney disease, stage 4 (severe) Is this a current diagnosis for this admission?: Yes (8) Focal segmental glomerulosclerosis Is this a current diagnosis for this admission?: Yes (9) Hypertension Qualifiers: Hypertension type: essential hypertension Qualified Code(s): I10 - Essential (primary) hypertension Is this a current diagnosis for this admission?: Yes (10) Pulmonary hypertension Is this a current diagnosis for this admission?: Yes (11) Mitral regurgitation Qualifiers: Cardiac valve disease etiology: etiology unspecified Qualified Code(s): I34.0 - Nonrheumatic mitral (valve) insufficiency Is this a current diagnosis for this admission?: Yes (12) Type 2 diabetes mellitus Qualifiers: Diabetes mellitus skilled nursing insulin use: without skilled nursing use Diabetes mellitus complication status: with unspecified complications Qualified Code(s) : E11.8 - Type 2 diabetes mellitus with unspecified complications Is this a current diagnosis for this admission?: Yes
--- NOTE | 2018-04-28 19:56 | Operative Report ---
Operative Report DATE OF SURGERY: 04/28/18 Operative Report: The risks, benefits and alternatives of the procedure are explained to the patient in detail she is taken to the OR for Propofol sedation she did not consume her prep overnight Following sedation, the Olympus videoscope introduced into the patient's rectum the prep is poor she has a very redundant colon the scope is advanced to the cecum this is identified by the usual anatomical landmarks the scope is then slowly withdrawn, tubular and concentric views are obtained retroflexion is done PREOPERATIVE DIAGNOSIS: change in bowel habits POSTOPERATIVE DIAGNOSIS: poorly prepped colon. patient did not want to participate with the prep instructions. random biopsies obtained to rule out collagenous, microscopic or lymphocytic colitis. no obstruction is noted. internal hemorrhoids OPERATION: colonoscopy with biopsy SURGEON: GARY ERVIN ANESTHESIA: LMAC TISSUE REMOVED OR ALTERED: as noted above, right side colon biopsies COMPLICATIONS: none ESTIMATED BLOOD LOSS: none INTRAOPERATIVE FINDINGS: as noted above PROCEDURE: patient tolerated her procedure well did not have have any post procedure complications patient to resume regular diet, meds and activity level wait on biopsies prep was not properly done, small polyps could have been missed patient can follow up as outpatient as needed
[2018-04-28] MEDS ORDERED: PHENYLEPHRINE HCL INJ/PF 10 MG/1 ML SDV ONE (21:19)
[2018-04-28] MEDS: TRAMADOL HCL 50 MG TABLET PO PRN (22:40)
[2018-04-28] MEDS: DIPHENHYDRAMINE HCL 25 MG CAPSULE PO PRN (22:41)
--- NOTE | 2018-04-29 00:40 | PROGRESS NOTE E ---
Progress Note NAME: BERONICA YEUNG : 1975 AGE: 43Y DATE: 04/28/2018 ROOM: 321 SUBJECTIVE: The patient had her colonoscopy. This showed no obstruction. There was a poor prep. The patient denies any chest pain or discomfort. She still has some mild orthopnea, but no PND. The leg edema is much improved. There is no chest pain or discomfort. There is no shortness of breath at rest. There are no events seen on the monitor. The patient remains in sinus rhythm. There are no TIA or CVA symptoms. OBJECTIVE: GENERAL: Moderately obese, but well groomed in no acute distress. VITAL SIGNS: She is afebrile with a temperature of 97.3 degrees Fahrenheit. Pulse 77 beats per minute. Blood pressure 101/56. Respirations 16 per minute, O2 saturation 96% on room air. HEENT: Head is normocephalic/atraumatic. Eyes: Pupils are equal, round, regular, reactive to light and accommodation. Extraocular movements are normal. There is no conjunctival pallor. There is no scleral icterus. ENT is negative. NECK: Supple. There is no JVD. Carotids are equal. There is no bruit. There is no goiter. There is no lymphadenopathy. LUNGS: Diminished air entry, prolonged expiration due to the patient's obesity. Small area of dullness in the bases with absent breath sounds. There is a very small area. The rest of the lungs have no rhonchi, rales, or wheezing. HEART: S1, S2 heard. There is no S3 gallop. There is no S4 gallop. There is a systolic murmur in the left sternal border in the apex. There is no rub. ABDOMEN: Soft and nontender. There is no hepatosplenomegaly. Bowel sounds are well heard. Abdomen is obese. EXTREMITIES: Femorals are deep. They are very much diminished. There are no femoral bruits. Leg pulses are diminished. There is trace pedal edema bilaterally. There is no cellulitis. There is no DVT or calf tenderness. There is no cyanosis or clubbing. 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 PSYCHIATRIC: The patient's judgment and insight are intact. Affect is normal. LABORATORY: The patient's white count is 3100, hemoglobin 10.4, hematocrit 32.4, platelet count 194,000. The patient's sodium is 138.9, potassium 4.3, chloride 101, CO2 is 27. The patient's BUN is 69, creatinine 2.4, GFR is reduced at 27 which is chronic kidney disease stage IV. Calcium 8.4. ADDENDUM: The patient states that she has no more loose stools. ASSESSMENT: 1. DIARRHEA, QUESTION ETIOLOGY. Resolved. 2. HISTORY OF IRRITABLE BOWEL SYNDROME. At present, does not seem to be active. 3. ACUTE ON CHRONIC SYSTOLIC AND DIASTOLIC HEART FAILURE. At present, compensated. 4. CORONARY ARTERY DISEASE. History of myocardial infarction. No evidence of myocardial infarction this admission. History of stent placement in the past. No anginal symptoms. 5. CARDIOMYOPATHY, DILATED/ISCHEMIC. At present, seems to be stable. Severely reduced left ventricular ejection fraction. 6. PLEURAL EFFUSION BILATERALLY. Most likely secondary to congestive heart failure. This is resolved with diuretics and thoracentesis. Continue diuretics. 7. HYPERTENSION. Blood pressure well controlled. 8. DIABETES MELLITUS TYPE 2. 9. CHRONIC KIDNEY DISEASE STAGE IV. 10. MODERATE OBESITY. 11. OBSTRUCTIVE SLEEP APNEA. The patient has not had a sleep test. She is requesting BiPAP to see if she feels better with that. Will recommend to the patient outpatient sleep study. 12. NONCOMPLIANCE WITH DIET AND MEDICATIONS. The patient is educated about this. Continue the patient's current amlodipine, aspirin, Bumex, Lasix, isosorbide dinitrate, hydralazine, and Entresto. The patient is stable. The patient desires to follow up with me in the office. I have given her my cell phone number to contact me to set up an appointment as an outpatient. Her cardiac status is stable. Continue current medications. Her medications have been reviewed. Discussed with the patient. Will sign off the case. Note that 40 minutes were spent on the patient, with more than 50% of the time spent in direct patient care. Medical decision making is of moderate complexity. DICTATING PHYSICIAN: SCOT CASIANO M.D. [id number] PHY#: [id number] ID: [id number] JOB#: [id number] ACCT: [id number] cc: >
[2018-04-29 06:06] LABS: ANION GAP 10 (5-19); BLOOD UREA NITROGEN 67 mg/dL (7-20); CALCIUM 8.2 mg/dL (8.4-10.2); CARBON DIOXIDE 26 mmol/L (22-30); CHLORIDE 101 mmol/L (98-107); GLUCOSE 75 mg/dL (75-110); POTASSIUM 4.2 mmol/L (3.6-5.0); SODIUM 137.1 mmol/L (137-145)
[2018-04-29] MEDS: BUMETANIDE 1 MG TABLET PO SCH (06:09)
[2018-04-29] MEDS: ISOSORBIDE DINITRATE 20 MG TABLET PO SCH ×3 (06:09→17:56)
[2018-04-29] MEDS: LANSOPRAZOLE 30 MG TAB.RAP.DR PO SCH (06:09)
[2018-04-29] MEDS: GABAPENTIN 300 MG CAPSULE PO SCH ×3 (06:09→21:24)
[2018-04-29] MEDS ORDERED: ACETAMINOPHEN 325 MG TABLET PO PRN (07:36)
[2018-04-29] MEDS: CARVEDILOL 12.5 MG TABLET PO SCH ×2 (09:50→21:25)
[2018-04-29] MEDS: FUROSEMIDE 80 MG TABLET PO SCH ×3 (09:52→17:56)
[2018-04-29] MEDS: ASPIRIN 81 MG TABLET, ENT COATED PO SCH (09:52)
[2018-04-29] MEDS: ENOXAPARIN SODIUM INJ 40 MG/0.4 ML DISP.SYRIN SUBCUT SCH (09:53)
[2018-04-29] MEDS: AMLODIPINE BESYLATE 10 MG TABLET PO SCH (09:54)
[2018-04-29] MEDS: CHOLECALCIFEROL (D3) 1,000 UNIT TABLET PO SCH (09:55)
[2018-04-29] MEDS: SACUBITRIL/VALSARTAN 97 MG/103 MG TABLET PO SCH ×2 (09:55→21:25)
[2018-04-29] MEDS: ALLOPURINOL 100 MG TABLET PO SCH (09:55)
--- NOTE | 2018-04-29 12:33 | PSYCHOLOGICAL NOTE ---
Psych Note - Psych Note Psych Note: Reason For Consult: Depression Consent permissions: None provided patient expressed feelings of depression and requested to speak to someone from psychology Patient discloses that she was "feeling down the other day" because she has a lot going on. She denies continued sadness stating that she is feeling "a little better." She reports that in the past she has taken Zoloft however she is currently not taking any medications and does not have an outpatient mental health provider. She states she is interested in receiving resource list of providers in the local area. Patient is alert and orientated to person, place, time and circumstance. Mood is euthymic with congruent affect. Patient denies suicidal and homicidal ideations. Delusions are absent behaviors congruent with intact reality based presentation i.e. organized and linear thought process. Eye contact was well- maintained. Conversational speech was within normal rate, tone and prosody. Intellectual abilities appear to be within the average range. Attention and concentration are good. Insight, judgment, impulse control are good. No medication recommendations at this time Diagnosis V6 2.9 (C65.9) unspecified problem related to unspecified psychosocial circumstance Impression\\plan: Patient is cleared from acute psychiatric services. Patient discloses wanting to speak to somebody from psychiatry because she was feeling down the other day but denies having continued sadness. Patient is currently prepping for surgery. At this time patient has no other concerns or complaints. Patient states she is interested in receiving outpatient mental health resource list; this will be provided with her discharge paperwork. Dr. Underwood was consulted and the care and management this patient; attending physician is agreement with augmentations and disposition
--- NOTE | 2018-04-29 14:56 | PDOC PROGRESS REPORT ---
Subjective Progress Note for:: 04/29/18 Subjective:: Patient was once again sitting up on the side of her bed. At the time she was saying that she wanted a EGD now. Colonoscopy was done yesterday and currently awaiting results. At the time she denied chest pain, SOB, n/v/d/c. Reason For Visit: ACUTE ON CHRONIC COMBINED CHF Physical Exam Vital Signs: Temp Pulse Resp BP Pulse Ox 97.2 F 70 16 92/49 L 96 04/29/18 11:53 04/29/18 11:53 04/29/18 11:53 04/29/18 11:53 04/29/18 13:07 Intake & Output 04/28/18 04/29/18 04/30/18 06:59 06:59 06:59 Intake Total 1046 1689 Output Total 6865 0410 Balance -1429 -2161 Weight 104.5 kg 102.9 kg General appearance: PRESENT: no acute distress, well-developed, well-nourished Mouth exam: PRESENT: moist, neck supple Neck exam: PRESENT: full ROM. ABSENT: JVD Respiratory exam: PRESENT: clear to auscultation abdi. ABSENT: accessory muscle use, crackles, rales, rhonchi, wheezes Cardiovascular exam: PRESENT: +S1, +S2 GI/Abdominal exam: PRESENT: normal bowel sounds, soft. ABSENT: organomegaly, tenderness Extremities exam: PRESENT: pedal edema - -trace+. ABSENT: tenderness, +1 edema , +2 edema Musculoskeletal exam: PRESENT: normal inspection. ABSENT: tenderness Neurological exam: PRESENT: alert, awake, oriented to person, oriented to place , oriented to time, oriented to situation Psychiatric exam: PRESENT: appropriate affect, normal mood Skin exam: PRESENT: dry, intact, warm. ABSENT: cyanosis Results Laboratory Results: 04/28/18 05:58 04/29/18 05:02 04/29/18 05:02 Sodium 137.1 Potassium 4.2 Chloride 101 Carbon Dioxide 26 Anion Gap 10 BUN 67 H Creatinine 2.21 H Est GFR ( Amer) 29 L Est GFR (Non-Af Amer) 24 L Glucose 75 Calcium 8.2 L 04/18/18 04/18/18 04/18/18 12:40 19:10 19:10 Creatine Kinase 270 H CK-MB (CK-2) 2.57 Troponin I 0.042 0.038 NT-Pro-B Natriuret Pep 04/19/18 04/19/18 04/19/18 00:50 00:50 06:50 Creatine Kinase 163 H 187 H CK-MB (CK-2) 2.10 Troponin I 0.039 NT-Pro-B Natriuret Pep 04/19/18 06:50 Creatine Kinase CK-MB (CK-2) 2.16 Troponin I 0.032 NT-Pro-B Natriuret Pep 77300 H Impressions: Abdomen Ultrasound 04/21/18 16:35 IMPRESSION: No intra-abdominal ascitic fluid was identified. Chest X-Ray 04/26/18 00:00 IMPRESSION: STABLE APPEARANCE OF THE CHEST. NO PNEUMOTHORAX 2 HOURS FOLLOWING THORACENTESIS. Thoracentesis Ultrasound 04/26/18 00:00 IMPRESSION: SUCCESSFUL THORACENTESIS USING ULTRASOUND GUIDANCE. Assessment & Plan - Diagnosis (1) Chronic kidney disease, stage 4 (severe) Plan: currently creatinine looks to be at baseline. She is safe for discharge from nephrology's standpoint. Discussed with the nurse and her about following up with Dr. Carlin in 14 days with labs. (2) Pleural effusion Plan: stable (3) Focal segmental glomerulosclerosis Is this a current diagnosis for this admission?: Yes Plan: stable (4) Proteinuria Plan: upc showed only 500mg of proteinuria per a day. Improved from her past. Not nephrotic level. (5) CHF exacerbation Qualifiers: Heart failure type: unspecified Qualified Code(s): I50.9 - Heart failure, unspecified Plan: looks to have almost resolved; needs to be more compliant with medications (6) Change in bowel habits Plan: had colonoscopy yesterday, she now wants an EGD (8) Peripheral edema Plan: on loop diuretics; improving (9) Hypoalbuminemia due to protein-calorie malnutrition Plan: Advised on proper diet and making sure to eat. 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
[2018-04-29] MEDS: TRAMADOL HCL 50 MG TABLET PO PRN (20:21)
[2018-04-29] MEDS: DIPHENHYDRAMINE HCL 25 MG CAPSULE PO PRN (20:21)
--- NOTE | 2018-04-29 20:36 | PDOC DISCHARGE SUMMARY ---
General - Admit/Disc Date/PCP Admission Date/Primary Care Provider: 04/18/18 12:14 VU GUZMAN MD Discharge Date: 04/29/18 - Discharge Diagnosis (1) Acute systolic heart failure Is this a current diagnosis for this admission?: Yes (2) Nephrotic syndrome Is this a current diagnosis for this admission?: Yes (3) Cardiomyopathy Is this a current diagnosis for this admission?: Yes (4) Low back pain Is this a current diagnosis for this admission?: Yes (5) Acute on chronic combined systolic and diastolic CHF, NYHA class 3 Is this a current diagnosis for this admission?: Yes (6) Anasarca Is this a current diagnosis for this admission?: Yes (7) Chronic kidney disease, stage 4 (severe) Is this a current diagnosis for this admission?: Yes (8) Focal segmental glomerulosclerosis Is this a current diagnosis for this admission?: Yes (9) Hypertension Is this a current diagnosis for this admission?: Yes (10) Pulmonary hypertension Is this a current diagnosis for this admission?: Yes (11) Mitral regurgitation Is this a current diagnosis for this admission?: Yes (12) Type 2 diabetes mellitus Is this a current diagnosis for this admission?: Yes - Additional Information Resuscitation Status: Full Code Discharge Diet: Cardiac, Diabetic Discharge Activity: Activity As Tolerated, Balance Activity w/Rest, Weigh Daily Prescriptions: Tramadol HCl [Ultram 50 mg Tablet] 50 mg PO Q6HP PRN #60 tablet PRN Reason: Lubiprostone [Amitiza 24 Mcg Capsule] 24 mcg PO BIDP PRN #60 capsule PRN Reason: Home Medications: Allopurinol [Zyloprim 100 mg Tablet] 100 mg PO DAILY 11/25/16 Docusate Sodium [Colace 100 mg Capsule] 100 mg PO BIDP PRN 11/25/16 Omeprazole 40 mg PO DAILY 11/25/16 Cholecalciferol (Vitamin D3) [Vitamin D3] 4,000 unit PO DAILY 05/04/17 Atorvastatin Calcium [Lipitor 80 mg Tablet] 80 mg PO QHS #90 tablet 05/09/17 Medroxyprogesterone Acet [Provera 10 mg Tablet] 10 mg PO DAILY 06/27/17 Amlodipine Besylate [Norvasc 10 mg Tablet] 10 mg PO DAILY 04/18/18 Aspirin [Aspirin EC] 81 mg PO DAILY 04/18/18 Bumetanide [Bumex 1 mg Tablet] 3 mg PO Q6AM 04/18/18 Carvedilol [Coreg 12.5 mg Tablet] 12.5 mg PO Q12 04/18/18 Doxepin HCl [Silenor] 6 mg PO QHS 04/18/18 Furosemide [Lasix] 80 mg PO TID 04/18/18 Gabapentin [Neurontin 300 mg Capsule] 600 mg PO Q8 04/18/18 Hydralazine HCl [Apresoline 50 mg Tablet] 50 mg PO Q8HP PRN 04/18/18 Isosorbide Dinitrate 60 mg PO TID@06,12,18 04/18/18 Lutein [Natural Lutein] 20 mg PO DAILY 04/18/18 Sacubitril/Valsartan [Entresto 97 mg-103 mg Tablet] 1 each PO Q12 04/18/18 Vitamin E [Natural Vitamin E] 400 unit PO DAILY 04/18/18 Lubiprostone [Amitiza 24 Mcg Capsule] 24 mcg PO BIDP PRN #60 capsule 04/29/18 Simethicone [Mylicon 80 mg Chewable Tablet] 80 mg PO QIDP PRN tab.chew Tramadol HCl [Ultram 50 mg Tablet] 50 mg PO Q6HP PRN #60 tablet 04/29/18 History of Present Illness History of Present Illness: BERONICA YEUNG is a 43 year old female, she has chronic combined systolic and diastolic heart failure she was admitted for management of decompensated acute on chronic systolic and diastolic heart failure. Hospital Course Hospital Course: She was admitted for the management of acute combined systolic and diastolic heart failure, she was treated with furosemide infusion, she also underwent thoracentesis copious amount of fluid was collected. She was seen by cardiology , nephrology and GI. She underwent colonoscopy for the evaluation of altered bowel habits, it was a poor prep bowel no obstructive lesion was found. She has nephrotic syndrome secondary to focal segmental glomerulosclerosis. She has obstructive sleep apnea, presently on CPAP, requesting for upgrade of the device, she will need another sleep study this will be done outpatient Physical Exam Vital Signs: Temp Pulse Resp BP Pulse Ox 98.3 F 70 16 109/70 97 04/29/18 19:21 04/29/18 19:21 04/29/18 19:21 04/29/18 19:21 04/29/18 19:21 Intake & Output 04/28/18 04/29/18 04/30/18 06:59 06:59 06:59 Intake Total 1046 1689 1110 Output Total 3521 0110 2050 Balance -1429 -2163 -940 Weight 104.5 kg 102.9 kg General appearance: PRESENT: no acute distress Eye exam: PRESENT: PERRLA Respiratory exam: PRESENT: rhonchi Cardiovascular exam: PRESENT: +S1, +S2 Murmur grade: 3 GI/Abdominal exam: PRESENT: soft Neurological exam: PRESENT: alert Results Laboratory Results: 04/28/18 05:58 04/29/18 05:02 04/29/18 05:02 Sodium 137.1 Potassium 4.2 Chloride 101 Carbon Dioxide 26 Anion Gap 10 BUN 67 H Creatinine 2.21 H Est GFR ( Amer) 29 L Est GFR (Non-Af Amer) 24 L Glucose 75 Calcium 8.2 L 04/18/18 04/18/18 04/18/18 12:40 19:10 19:10 Creatine Kinase 270 H CK-MB (CK-2) 2.57 Troponin I 0.042 0.038 NT-Pro-B Natriuret Pep 04/19/18 04/19/18 04/19/18 00:50 00:50 06:50 Creatine Kinase 163 H 187 H CK-MB (CK-2) 2.10 Troponin I 0.039 NT-Pro-B Natriuret Pep 04/19/18 06:50 Creatine Kinase CK-MB (CK-2) 2.16 Troponin I 0.032 NT-Pro-B Natriuret Pep 05643 H Impressions: Abdomen Ultrasound 04/21/18 16:35 IMPRESSION: No intra-abdominal ascitic fluid was identified. Chest X-Ray 04/26/18 00:00 IMPRESSION: STABLE APPEARANCE OF THE CHEST. NO PNEUMOTHORAX 2 HOURS FOLLOWING THORACENTESIS. Thoracentesis Ultrasound 04/26/18 00:00 IMPRESSION: SUCCESSFUL THORACENTESIS USING ULTRASOUND GUIDANCE. Qualifiers - * PATIENT BEING DISCHARGED WITH ANY OF THE FOLLOWING DIAGNOSIS: No
[2018-04-30] MEDS ORDERED: LANSOPRAZOLE 30 MG TAB.RAP.DR PO SCH (06:00)
[2018-04-30] MEDS: ISOSORBIDE DINITRATE 20 MG TABLET PO SCH (06:10)
[2018-04-30] MEDS: GABAPENTIN 300 MG CAPSULE PO SCH (06:10)
[2018-04-30] MEDS: BUMETANIDE 1 MG TABLET PO SCH (06:11)
[2018-04-30] MEDS: ALLOPURINOL 100 MG TABLET PO SCH (09:01)
[2018-04-30] MEDS: AMLODIPINE BESYLATE 10 MG TABLET PO SCH (09:01)
[2018-04-30] MEDS: FUROSEMIDE 80 MG TABLET PO SCH (09:01)
[2018-04-30] MEDS: CARVEDILOL 12.5 MG TABLET PO SCH (09:02)
[2018-04-30] MEDS: CHOLECALCIFEROL (D3) 1,000 UNIT TABLET PO SCH (09:02)
[2018-04-30] MEDS: ASPIRIN 81 MG TABLET, ENT COATED PO SCH (09:02)
[2018-04-30] MEDS: ENOXAPARIN SODIUM INJ 40 MG/0.4 ML DISP.SYRIN SUBCUT SCH (09:02)
[2018-04-30] MEDS: SACUBITRIL/VALSARTAN 97 MG/103 MG TABLET PO SCH (09:02)
[2018-04-30 09:19] VITALS: BP 122/74
== END 2018-04-30 10:00 | disposition home or self-care (01) | DRG 291 ==
LOC: ER 07:30 → EH 12:14 → 3W 17:28
PROVIDERS: ADMIT Internal Medicine; ATTEND Internal Medicine
PROC: 5A09557 Assistance with Respiratory Ventilation, Greater than 96 Consecutive Hours, Continuous Positive Airway Pressure (ICD-10-PCS; 2018-04-18)
PROC: 0W993ZX Drainage of Right Pleural Cavity, Percutaneous Approach, Diagnostic (ICD-10-PCS; 2018-04-18)
PROC: 0W993ZX Drainage of Right Pleural Cavity, Percutaneous Approach, Diagnostic (ICD-10-PCS; 2018-04-26)
PROC: 0DBF8ZX Excision of Right Large Intestine, Via Natural or Artificial Opening Endoscopic, Diagnostic (ICD-10-PCS; principal; 2018-04-28 12:15)
DX: I13.0 Hypertensive heart and chronic kidney disease with heart failure and stage 1 through stage 4 chronic kidney disease, or unspecified chronic kidney disease (principal); I50.43 Acute on chronic combined systolic (congestive) and diastolic (congestive) heart failure; N18.4 Chronic kidney disease, stage 4 (severe); J91.8 Pleural effusion in other conditions classified elsewhere; E46 Unspecified protein-calorie malnutrition; N05.9 Unspecified nephritic syndrome with unspecified morphologic changes; M54.5 Low back pain; N26.9 Renal sclerosis, unspecified; I27.20 Pulmonary hypertension, unspecified; I34.0 Nonrheumatic mitral (valve) insufficiency; E11.22 Type 2 diabetes mellitus with diabetic chronic kidney disease; G47.33 Obstructive sleep apnea (adult) (pediatric); I25.10 Atherosclerotic heart disease of native coronary artery without angina pectoris; F32.9 Major depressive disorder, single episode, unspecified; K21.9 Gastro-esophageal reflux disease without esophagitis; J44.9 Chronic obstructive pulmonary disease, unspecified; K58.0 Irritable bowel syndrome with diarrhea; I25.5 Ischemic cardiomyopathy; E88.09 Other disorders of plasma-protein metabolism, not elsewhere classified; K64.8 Other hemorrhoids; R19.4 Change in bowel habit; E66.01 Morbid (severe) obesity due to excess calories; Z68.34 Body mass index [BMI] 34.0-34.9, adult; I25.2 Old myocardial infarction; Z95.810 Presence of automatic (implantable) cardiac defibrillator; Z79.82 Long term (current) use of aspirin; Z79.899 Other long term (current) drug therapy; Z95.5 Presence of coronary angioplasty implant and graft; Z87.891 Personal history of nicotine dependence; Z88.6 Allergy status to analgesic agent; Z88.3 Allergy status to other anti-infective agents; Z91.11 Patient's noncompliance with dietary regimen; Z91.14 Patient's other noncompliance with medication regimen; Z82.49 Family history of ischemic heart disease and other diseases of the circulatory system
CPT/HCPCS: 32555; 36415; 36600; 45380; 51702; 71045; 76705; 80048; 80053; 81001; 811; 82040; 82550; 82553; 82570; 82803; 82945; 82962; 83036; 83605; 83615; 83880; 84155; 84156; 84157; 84484; 85025; 85027; 85379; 85610; 85730; 87015; 87040; 87070; 87075; 87086; 87101; 87116; 87205; 87206; 87252; 88305; 89050; 93005; 93010; 94660; 96374; 96375; 99285; J0696; J1200; J1650; J1940; J2001; J2270; J2370; J2704; J3490

== ENCOUNTER → 2018-05-04 | Outpatient (CLI) | payer MEDICARE, MEDICAID ==
[2018-05-04 11:52] LABS: HEMATOCRIT 36.3 % (36.0-47.0); HEMOGLOBIN 11.6 g/dL (12.0-15.5); MEAN CORPUSCULAR HEMOGLOBIN 27.1 pg (27.0-33.4); MEAN CORPUSCULAR HGB CONC 31.9 g/dL (32.0-36.0); MEAN CORPUSCULAR VOLUME 85 fl (80-97); PLATELET COUNT 211 10^3/uL (150-450); RED BLOOD COUNT 4.27 10^6/uL (3.72-5.28); RED CELL DISTRIBUTION WIDTH 18.9 % (11.5-14.0); WHITE BLOOD COUNT 3.8 10^3/uL (4.0-10.5)
[2018-05-04 11:53] LABS: APPEARANCE,URINE CLEAR; BILIRUBIN,URINE NEGATIVE (NEGATIVE); COLOR,URINE YELLOW; GLUCOSE, URINE NEGATIVE (NEGATIVE); KETONES,URINE NEGATIVE (NEGATIVE); LEUKOCYTE ESTERASE,URINE NEGATIVE (NEGATIVE); NITRITE,URINE NEGATIVE (NEGATIVE); PROTEIN,URINE 30 mg/dL (NEGATIVE); URINE SPECIFIC GRAVITY 1.011; UROBILINOGEN,URINE NEGATIVE mg/dL (<2.0)
[2018-05-04 12:15] LABS: ANION GAP 12 (5-19); BLOOD UREA NITROGEN 48 mg/dL (7-20); CALCIUM 9.1 mg/dL (8.4-10.2); CARBON DIOXIDE 26 mmol/L (22-30); CHLORIDE 106 mmol/L (98-107); GLUCOSE 85 mg/dL (75-110); POTASSIUM 4.1 mmol/L (3.6-5.0); SODIUM 143.7 mmol/L (137-145)
== END ==
LOC: OD 11:03
PROVIDERS: ATTEND Physician Assistant Medical
DX: N18.9 Chronic kidney disease, unspecified (principal); D64.9 Anemia, unspecified
CPT/HCPCS: 36415; 80048; 81001; 85027

== ENCOUNTER 2018-07-27 04:48 | Observation (INO) | payer MEDICARE, MEDICAID ==
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
[2018-07-27 05:31] LABS: ABSOLUTE EOSINOPHILS # (AUTO) 0.2 10^3/uL (0.0-0.6); ABSOLUTE LYMPHOCYTES (AUTO) 0.4 10^3/uL (0.5-4.7); ABSOLUTE MONOCYTES (AUTO) 0.4 10^3/uL (0.1-1.4); BASOPHILS % (AUTO) 0.3 % (0-2); EOSINOPHILS % (AUTO) 3.3 % (0-6); HEMATOCRIT 31.9 % (36.0-47.0); HEMOGLOBIN 10.3 g/dL (12.0-15.5); LYMPHOCYTES % (AUTO) 8.2 % (13-45); MEAN CORPUSCULAR HEMOGLOBIN 26.6 pg (27.0-33.4); MEAN CORPUSCULAR HGB CONC 32.2 g/dL (32.0-36.0); MEAN CORPUSCULAR VOLUME 83 fl (80-97); MONOCYTES % (AUTO) 7.9 % (3-13); PLATELET COUNT 194 10^3/uL (150-450); RED BLOOD COUNT 3.87 10^6/uL (3.72-5.28); RED CELL DISTRIBUTION WIDTH 19.6 % (11.5-14.0); SEGMENTED NEUTROPHILS % (AUTO) 80.3 % (42-78); TOTAL CELLS COUNTED % (AUTO) 100 %
[2018-07-27 05:37] LABS: PROTHROMBIN TIME 23.6 SEC (11.4-15.4)
[2018-07-27 05:52] LABS: ALANINE AMINOTRANSFERASE 14 U/L (9-52); ALBUMIN 3.3 g/dL (3.5-5.0); ALKALINE PHOSPHATASE 141 U/L (38-126); ANION GAP 12 (5-19); ASPARTATE AMINO TRANSFERASE 57 U/L (14-36); BILIRUBIN,DIRECT 0.3 mg/dL (0.0-0.4); BILIRUBIN,TOTAL 0.5 mg/dL (0.2-1.3); BLOOD UREA NITROGEN 50 mg/dL (7-20); CALCIUM 8.5 mg/dL (8.4-10.2); CARBON DIOXIDE 21 mmol/L (22-30); CHLORIDE 110 mmol/L (98-107); CREATINE KINASE 162 U/L (30-135); GLUCOSE 96 mg/dL (75-110); POTASSIUM 4.1 mmol/L (3.6-5.0); SODIUM 142.9 mmol/L (137-145); TOTAL PROTEIN 6.2 g/dL (6.3-8.2)
[2018-07-27 06:03] LABS: CREATINE KINASE MB 2.71 ng/mL (<4.55); TROPONIN I 0.03 ng/mL
[2018-07-27] MEDS ORDERED: MORPHINE SULFATE 10 MG/ML INJ IV ONE (06:26)
[2018-07-27 06:27] LABS: A TYPE INFLUENZA AG NEGATIVE (NEGATIVE); B INFLUENZA AG NEGATIVE (NEGATIVE)
[2018-07-27] MEDS ORDERED: ONDANSETRON HCL INJ/PF 4 MG/2 ML SDV IV ONE (06:27)
[2018-07-27] MEDS ORDERED: DIPHENHYDRAMINE HCL 50 MG/ML VIAL IV ONE (06:27)
[2018-07-27] MEDS ORDERED: IPRATROPIUM/ALBUTEROL 0.5-2.5 MG/3 ML AMPUL NEB ONE ×2 (06:27→08:10)
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
--- NOTE | 2018-07-27 07:14 | RADIOLOGY REPORT (SQ) ---
Chest single view on 07/27/2018 at 6:54 AM CLINICAL INDICATION: Shortness of breath COMPARISON: None currently available FINDINGS: Multilead left subclavian AICD device is noted in place. Cardiomegaly is noted. There is slight elevation of the right hemidiaphragm. Minimal vascular congestion is noted. The lungs are otherwise clear. Vascular calcification is noted in the aorta. IMPRESSION: Cardiomegaly with minimal vascular congestion.
[2018-07-27] MEDS ORDERED: FUROSEMIDE INJ/PF 40 MG/4 ML SDV IV ONE (07:32)
--- NOTE | 2018-07-27 10:36 | EKG REPORT ---
SEVERITY:- ABNORMAL ECG - A-V DUAL-PACED RHYTHM WITH SOME INHIBITION : Confirmed by: Maite Carter MD 27-Jul-2018 10:36:06
[2018-07-27] MEDS ORDERED: DIPHENHYDRAMINE HCL 25 MG CAPSULE PO PRN (13:56)
[2018-07-27] MEDS ORDERED: ALBUTEROL SULFATE HFA (90 MCG/PUFF) 8 GM MDI (1 MDI/ER DISP) IH PRN (13:56)
[2018-07-27] MEDS ORDERED: LUTEIN 25 MG PO SCH (14:00)
[2018-07-27] MEDS ORDERED: VITAMIN E 400 UNIT PO SCH (14:00)
[2018-07-27] MEDS ORDERED: TURMERIC ROOT EXTRACT 500 MG PO SCH (14:00)
[2018-07-27] MEDS ORDERED: ALBUTEROL SULFATE HFA (90 MCG/PUFF) 200 PUFF/8.5 GM MDI IH PRN (14:22)
[2018-07-27 15:14] LABS: HEMATOCRIT 32.9 % (36.0-47.0); HEMOGLOBIN 10.6 g/dL (12.0-15.5); MEAN CORPUSCULAR HEMOGLOBIN 26.2 pg (27.0-33.4); MEAN CORPUSCULAR HGB CONC 32.1 g/dL (32.0-36.0); MEAN CORPUSCULAR VOLUME 82 fl (80-97); PLATELET COUNT 186 10^3/uL (150-450); RED BLOOD COUNT 4.03 10^6/uL (3.72-5.28); RED CELL DISTRIBUTION WIDTH 19.5 % (11.5-14.0); WHITE BLOOD COUNT 4.1 10^3/uL (4.0-10.5)
[2018-07-27 15:15] LABS: INTERNATIONAL RATION (INR) 1.99; PROTHROMBIN TIME 23.6 SEC (11.4-15.4)
[2018-07-27] MEDS: FUROSEMIDE 80 MG TABLET PO SCH ×2 (15:57→22:03)
[2018-07-27] MEDS: LUBIPROSTONE 24 MCG CAPSULE PO SCH ×2 (15:58→22:14)
[2018-07-27] MEDS: ASPIRIN 81 MG TABLET, ENT COATED PO SCH (15:58)
[2018-07-27] MEDS: CARVEDILOL 12.5 MG TABLET PO SCH ×2 (15:58→22:03)
[2018-07-27] MEDS: ALLOPURINOL 100 MG TABLET PO SCH (15:58)
[2018-07-27] MEDS: AMLODIPINE BESYLATE 10 MG TABLET PO SCH (15:58)
[2018-07-27] MEDS: SACUBITRIL/VALSARTAN 97 MG/103 MG TABLET PO SCH ×3 (15:59→22:06)
[2018-07-27] MEDS: MEDROXYPROGESTERONE ACET 10 MG TABLET PO SCH (16:00)
[2018-07-27] MEDS: VITAMIN E (DL, ACETATE) 400 UNIT CAPSULE PO SCH (16:01)
[2018-07-27] MEDS: LANSOPRAZOLE 30 MG TAB.RAP.DR PO SCH (16:14)
[2018-07-27] MEDS: ISOSORBIDE DINITRATE 20 MG TABLET PO SCH (17:06)
[2018-07-27] MEDS ORDERED: ISOSORBIDE DINITRATE 60 MG PO SCH (18:00)
[2018-07-27] MEDS ORDERED: MORPHINE SULFATE 10 MG/ML INJ IV PRN (18:31)
[2018-07-27] MEDS: BENZOCAINE/MENTHOL SORE THROAT LOZENGE BUCCAL PRN (19:36)
[2018-07-27] MEDS ORDERED: SIMETHICONE 80 MG TAB.CHEW PO PRN (21:10)
[2018-07-27] MEDS ORDERED: DIPHENHYDRAMINE HCL 50 MG CAPSULE PO PRN (21:10)
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
[2018-07-27] MEDS ORDERED: WARFARIN SODIUM 5 MG TABLET PO SCH (22:00)
[2018-07-27] MEDS ORDERED: ATORVASTATIN CALCIUM 80 MG TABLET PO SCH (22:00)
[2018-07-27] MEDS ORDERED: (PENDING PHARMACY ID) (Doxepin Hcl [Silenor] 6 MG) PO SCH (22:00)
[2018-07-27] MEDS ORDERED: DIPHENHYDRAMINE HCL 25 MG CAPSULE PO ONE (22:00)
[2018-07-28] MEDS: BENZOCAINE/MENTHOL SORE THROAT LOZENGE BUCCAL PRN ×2 (00:55→10:07)
[2018-07-28] MEDS ORDERED: BUMETANIDE 1 MG TABLET PO SCH (06:00)
[2018-07-28] MEDS: LANSOPRAZOLE 30 MG TAB.RAP.DR PO SCH (06:26)
[2018-07-28] MEDS: FUROSEMIDE 80 MG TABLET PO SCH ×2 (06:26→13:29)
[2018-07-28] MEDS: ISOSORBIDE DINITRATE 20 MG TABLET PO SCH ×2 (06:27→11:52)
[2018-07-28 06:36] LABS: APPEARANCE,URINE CLEAR; BILIRUBIN,URINE NEGATIVE (NEGATIVE); COLOR,URINE YELLOW; GLUCOSE, URINE NEGATIVE (NEGATIVE); KETONES,URINE NEGATIVE (NEGATIVE); LEUKOCYTE ESTERASE,URINE NEGATIVE (NEGATIVE); NITRITE,URINE NEGATIVE (NEGATIVE); PROTEIN,URINE NEGATIVE (NEGATIVE); URINE SPECIFIC GRAVITY 1.011; UROBILINOGEN,URINE NEGATIVE mg/dL (<2.0)
[2018-07-28 06:37] LABS: INTERNATIONAL RATION (INR) 2.04; PROTHROMBIN TIME 24.1 SEC (11.4-15.4)
[2018-07-28] MEDS: ALLOPURINOL 100 MG TABLET PO SCH (09:51)
[2018-07-28] MEDS: AMLODIPINE BESYLATE 10 MG TABLET PO SCH (09:51)
[2018-07-28] MEDS: ASPIRIN 81 MG TABLET, ENT COATED PO SCH (09:51)
[2018-07-28] MEDS: CARVEDILOL 12.5 MG TABLET PO SCH (09:51)
[2018-07-28] MEDS: VITAMIN E (DL, ACETATE) 400 UNIT CAPSULE PO SCH (09:52)
[2018-07-28] MEDS: SACUBITRIL/VALSARTAN 97 MG/103 MG TABLET PO SCH (09:53)
[2018-07-28] MEDS: MEDROXYPROGESTERONE ACET 10 MG TABLET PO SCH (09:53)
[2018-07-28] MEDS: LUBIPROSTONE 24 MCG CAPSULE PO SCH (09:53)
--- NOTE | 2018-07-28 15:18 | PDOC DISCHARGE SUMMARY ---
General - Admit/Disc Date/PCP Admission Date/Primary Care Provider: 07/27/18 09:29 VU GUZMAN MD Discharge Date: 07/28/18 - Discharge Diagnosis (1) Acute combined systolic (congestive) and diastolic (congestive) heart failure Is this a current diagnosis for this admission?: Yes (2) Deep vein thrombosis Is this a current diagnosis for this admission?: Yes (3) Pulmonary embolism Is this a current diagnosis for this admission?: Yes (4) Chronic kidney disease, stage 3 Is this a current diagnosis for this admission?: Yes - Additional Information Discharge Diet: Cardiac Discharge Activity: Activity As Tolerated, Balance Activity w/Rest, Weigh Daily Prescriptions: Atorvastatin Calcium [Lipitor 80 mg Tablet] 80 mg PO QHS #90 tablet Doxepin HCl [Silenor] 6 mg PO QHS #30 tablet Albuterol Sulfate [Proair HFA] 2 puff IH Q4HP PRN #5 hfa.aer.ad PRN Reason: Shortness Of Breath Allopurinol [Zyloprim 100 mg Tablet] 100 mg PO DAILY #90 tablet Amlodipine Besylate [Norvasc 10 mg Tablet] 10 mg PO DAILY #90 tablet Bumetanide [Bumex 1 mg Tablet] 3 mg PO 0600 #90 tablet Carvedilol [Coreg 12.5 mg Tablet] 12.5 mg PO Q12 #60 tablet Diphenhydramine HCl [Benadryl] 25 mg PO DAILYP PRN #30 capsule PRN Reason: ALLERIGES Furosemide [Lasix 80 mg Tablet] 80 mg PO Q8 #90 tablet Isosorbide Dinitrate 60 mg PO 0600,1200,1800 #90 tablet Lubiprostone [Amitiza 24 Mcg Capsule] 24 mcg PO Q12 #90 capsule Lutein 25 mg PO DAILY #90 capsule Medroxyprogesterone Acetate [Provera] 10 mg PO DAILY #90 tablet Omeprazole 40 mg PO DAILY #30 capsule. Sacubitril/Valsartan [Entresto 97 mg-103 mg Tablet] 1 each PO Q12 #60 tablet Simethicone [Mylicon 80 mg Chewable Tablet] 80 mg PO QIDP PRN #90 tab.chew PRN Reason: Turmeric Root Extract [Turmeric Curcumin] 500 mg PO DAILY #90 capsule Vitamin E [Natural Vitamin E] 400 unit PO DAILY #90 capsule Warfarin Sodium [Coumadin 5 mg Tablet] 5 mg PO QPM #30 tablet Home Medications: Albuterol Sulfate [Proair HFA] 2 puff IH Q4HP PRN #5 hfa.aer.ad 07/28/18 Allopurinol [Zyloprim 100 mg Tablet] 100 mg PO DAILY #90 tablet 07/28/18 Amlodipine Besylate [Norvasc 10 mg Tablet] 10 mg PO DAILY #90 tablet 07/28/18 Atorvastatin Calcium [Lipitor 80 mg Tablet] 80 mg PO QHS #90 tablet 07/28/18 Bumetanide [Bumex 1 mg Tablet] 3 mg PO 0600 #90 tablet 07/28/18 Carvedilol [Coreg 12.5 mg Tablet] 12.5 mg PO Q12 #60 tablet 07/28/18 Diphenhydramine HCl [Benadryl] 25 mg PO DAILYP PRN #30 capsule 07/28/18 Doxepin HCl [Silenor] 6 mg PO QHS #30 tablet 07/28/18 Furosemide [Lasix 80 mg Tablet] 80 mg PO Q8 #90 tablet 07/28/18 Isosorbide Dinitrate 60 mg PO 0600,1200,1800 #90 tablet 07/28/18 Lubiprostone [Amitiza 24 Mcg Capsule] 24 mcg PO Q12 #90 capsule 07/28/18 Lutein 25 mg PO DAILY #90 capsule 07/28/18 Medroxyprogesterone Acetate [Provera] 10 mg PO DAILY #90 tablet 07/28/18 Omeprazole 40 mg PO DAILY #30 capsule. 07/28/18 Sacubitril/Valsartan [Entresto 97 mg-103 mg Tablet] 1 each PO Q12 #60 tablet Simethicone [Mylicon 80 mg Chewable Tablet] 80 mg PO QIDP PRN #90 tab.chew 07/28 Turmeric Root Extract [Turmeric Curcumin] 500 mg PO DAILY #90 capsule 07/28/18 Vitamin E [Natural Vitamin E] 400 unit PO DAILY #90 capsule 07/28/18 Warfarin Sodium [Coumadin 5 mg Tablet] 5 mg PO QPM #30 tablet 07/28/18 History of Present Illness History of Present Illness: BERONICA YEUNG is a 43 year old female she has chronic systolic and diastolic heart failure, status post biventricular pacer/AICD placement, she was recently admitted at [facility] on June 27, 2018 when she moved due to the inclement weather. She was discharged from that hospital on July 17, 2018, she could emergency room for evaluation of shortness of breath, chest pain, sore throat. I reviewed records from [facility], she presented to the emergency room at [facility] for evaluation of worsening shortness of breath as well as lower extremity swelling and edema the hospital stay was prolonged at [facility] she was treated with aggressive IV diuresis a venous Doppler of the lower extremity was done he demonstrated acute deep vein thrombosis because of the chest pain she had a VQ scan done and the VQ scan was interpreted as intermediate probability for PE given overall history it was felt that she should be treated with IV anticoagulant with heparin, it was felt that she is not a candidate for Eliquis or Xarelto because of renal insufficiency.. When she was discharged from [place] the INR was subtherapeutic, the goal of treatment was to get to therapeutic PT/INR but she was not willing to stay that long to achieve that goal., She stated that she was thinking of Entresto, I reviewed the records from [facility] I did not see any indication or reason why she was taken off Entresto, it was not stated the discharge summary why she would need to be off Entresto, she has severe cardiomyopathy ejection fraction is less than 20%, she would benefit from Entresto this to be restarted. She is presently therapeutic on the Coumadin, she is on megadoses of diuretic Hospital Course Hospital Course: Patient was admitted for the management of acute CHF, she was continue on her regular medications for CHF, she recently was diagnosed with DVT and PE she is on Coumadin, the INR is therapeutic, she will be discharged home today, follow PT/INR outpatient Physical Exam Vital Signs: Temp Pulse Resp BP Pulse Ox 99.1 F 74 19 114/67 99 07/28/18 11:31 07/28/18 11:31 07/28/18 11:31 07/28/18 11:31 07/28/18 11:31 Intake & Output 07/27/18 07/28/18 07/29/18 06:59 06:59 06:59 Intake Total 222 459 Output Total 1200 1500 Balance -978 -1041 Weight 90 kg General appearance: PRESENT: no acute distress, well-developed, well-nourished Head exam: PRESENT: atraumatic, normocephalic Eye exam: PRESENT: conjunctiva pink, EOMI, PERRLA Ear exam: PRESENT: normal external ear exam Mouth exam: PRESENT: moist, tongue midline Neck exam: PRESENT: full ROM Respiratory exam: PRESENT: clear to auscultation abdi Cardiovascular exam: PRESENT: RRR, +S1, +S2 Pulses: PRESENT: normal dorsalis pedis pul, +2 pedal pulses bilateral Vascular exam: PRESENT: normal capillary refill GI/Abdominal exam: PRESENT: normal bowel sounds, soft Rectal exam: PRESENT: deferred Neurological exam: PRESENT: alert, CN II-XII grossly intact Psychiatric exam: PRESENT: appropriate affect, normal mood Skin exam: PRESENT: dry, intact, warm Results Laboratory Results: 07/27/18 14:41 07/27/18 07/28/18 07/28/18 14:41 06:00 11:33 WBC 4.1 RBC 4.03 Hgb 10.6 L Hct 32.9 L MCV 82 MCH 26.2 L MCHC 32.1 RDW 19.5 H Plt Count 186 Urine Color YELLOW Urine Appearance CLEAR Urine pH 5.0 Ur Specific Egan 1.011 Urine Protein NEGATIVE Urine Glucose (UA) NEGATIVE Urine Ketones NEGATIVE Urine Blood NEGATIVE Urine Nitrite NEGATIVE Ur Leukocyte Esterase NEGATIVE Urine WBC (Auto) 0 Urine RBC (Auto) 0 Stool Occult Blood NEGATIVE Impressions: Chest X-Ray 07/27/18 04:59 IMPRESSION: Cardiomegaly with minimal vascular congestion. Qualifiers - * PATIENT BEING DISCHARGED WITH ANY OF THE FOLLOWING DIAGNOSIS: No, Heart Failure VTE patient discharged on overlapping Therapy?: Yes HF Pt being discharged on ACEI for LVEF less than 40%?: Yes HF Pt being discharged on ARBS for LVEF less than 40%?: Yes HF Pt with Afib discharged with Warfarin?: Yes HF Pt discharged on evidence-based Beta Marco:: Yes
[2018-07-28 15:50] VITALS: BP 124/74
== END 2018-07-28 17:34 | disposition home or self-care (01) ==
LOC: ER 04:48 → EH 09:29 → INTOOBSV 09:29 → 3S 12:14
PROVIDERS: ADMIT Internal Medicine; ATTEND Internal Medicine
DX: I13.0 Hypertensive heart and chronic kidney disease with heart failure and stage 1 through stage 4 chronic kidney disease, or unspecified chronic kidney disease (principal); I50.41 Acute combined systolic (congestive) and diastolic (congestive) heart failure; N18.3 Chronic kidney disease, stage 3 (moderate); E11.22 Type 2 diabetes mellitus with diabetic chronic kidney disease; I82.409 Acute embolism and thrombosis of unspecified deep veins of unspecified lower extremity; I26.99 Other pulmonary embolism without acute cor pulmonale; I42.9 Cardiomyopathy, unspecified; N26.9 Renal sclerosis, unspecified; K21.9 Gastro-esophageal reflux disease without esophagitis; R11.2 Nausea with vomiting, unspecified; I25.10 Atherosclerotic heart disease of native coronary artery without angina pectoris; R05 Cough; J02.9 Acute pharyngitis, unspecified; R68.83 Chills (without fever); D64.9 Anemia, unspecified; R80.9 Proteinuria, unspecified; E88.09 Other disorders of plasma-protein metabolism, not elsewhere classified; E46 Unspecified protein-calorie malnutrition; I25.2 Old myocardial infarction; Z68.30 Body mass index [BMI] 30.0-30.9, adult; Z79.899 Other long term (current) drug therapy; Z95.810 Presence of automatic (implantable) cardiac defibrillator; Z79.02 Long term (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 of antithrombotics/antiplatelets; Z91.11 Patient's noncompliance with dietary regimen; Z95.5 Presence of coronary angioplasty implant and graft; Z82.49 Family history of ischemic heart disease and other diseases of the circulatory system; Z23 Encounter for immunization
CPT/HCPCS: 93005; 94640 ×2; 99285; 96374; 96375; 36415 ×2; 82553; 82550; 84703; 85025; 85027; 85610 ×2; 82272; 80053; 81001; 84484; 87804; 83880; 71045; 90686; 93010; 94660 ×2; G0378 ×3; A9270 ×27; J1200; J1940; J2270; J2405; J3490; J7620

== ENCOUNTER → 2018-08-05 | Outpatient (CLI) | payer MEDICARE, MEDICAID ==
[2018-08-05 17:49] LABS: INTERNATIONAL RATION (INR) 1.38; PROTHROMBIN TIME 17.7 SEC (11.4-15.4)
== END ==
LOC: LAB 17:23
PROVIDERS: ATTEND Internal Medicine
DX: I82.409 Acute embolism and thrombosis of unspecified deep veins of unspecified lower extremity (principal)
CPT/HCPCS: 36415; 85610

== ENCOUNTER → 2018-08-11 | Outpatient (CLI) | payer MEDICARE, MEDICAID ==
[2018-08-11 15:53] LABS: INTERNATIONAL RATION (INR) 1.32
== END ==
LOC: LAB 15:31
PROVIDERS: ATTEND Internal Medicine
DX: I82.409 Acute embolism and thrombosis of unspecified deep veins of unspecified lower extremity (principal)
CPT/HCPCS: 36415; 85610

== ENCOUNTER 2019-05-17 17:20 | Inpatient (IN) | payer MEDICARE, MEDICAID ==
--- NOTE | 2019-05-17 17:55 | ER Document Report ---
ED Medical Screen (RME) - General Chief Complaint: Chest Tightness Stated Complaint: CHEST DISCOMFORT Time Seen by Provider: 05/17/19 17:41 Primary Care Provider: VU GUZMAN MD [Primary Care Provider] - Follow up as needed Notes: Patient is a 44-year-old female with a history of congestive heart failure, AICD, CA, hypertension, COPD presents to the emergency department with a chief complaint of chest pain. Patient states she was upstairs in the endoscopy suite for a scheduled upper and lower endoscopy by Dr. Mcneal when she was sent down to the emergency department due to her chest pain. Patient states she has had a squeezing to the center of her chest for 1 week that has been constant. Patient reports a shortness of breath. Patient reports she has gained 60 to 70 pounds in the past 3 weeks as she feels like this is fluid overload from her congestive heart failure. Patient states she developed a productive cough 3 days ago. Patient states she is currently on warfarin as she was diagnosed with a blood clot in her left leg and lung back in June. Patient states she has been taking all of her meds including her diuretic. Patient reports that Dr. Guzman to be called with results as he would like her to be admitted. TRAVEL OUTSIDE OF THE [place] IN LAST 30 DAYS: No - Related Data Allergies/Adverse Reactions: hydrocodone bitartrate [From Vicodin] Allergy (Verified 07/27/18 11:36) Hives hydromorphone HCl [From Dilaudid] Allergy (Verified 05/16/19 14:28) Hives levofloxacin [From Levaquin] Allergy (Verified 07/27/18 11:36) Hives oxycodone HCl [From Percocet] Allergy (Verified 07/27/18 11:36) Hives tramadol [Tramadol] Allergy (Verified 07/27/18 11:36) Hives Past Medical History - Past Medical History Cardiac Medical History: Reports: Hx Congestive Heart Failure - Chronic systolic and diastolic heart failure, Hx Coronary Artery Disease, Hx Heart Attack - STENTS/DEFIBRILLATOR/PACEMAKER, Hx Hypertension, Hx Pulmonary Embolism Pulmonary Medical History: Reports: Hx COPD, Hx Pneumonia Denies: Hx Asthma, Hx Bronchitis, Hx Tuberculosis Neurological Medical History: Denies: Hx Cerebrovascular Accident, Hx Seizures Endocrine Medical History: Reports: Hx Diabetes Mellitus Type 2 - non compliant (pt has snacks in her suitcase etc) Renal/ Medical History: Reports: Hx Renal Insufficiency. Denies: Hx Peritoneal Dialysis GI Medical History: Reports: Hx Gastroesophageal Reflux Disease Musculoskeltal Medical History: Denies Hx Arthritis Skin Medical History: Reports Hx Cellulitis - Left upper extremity cellulitis week and a half ago Psychiatric Medical History: Reports: Hx Depression Past Surgical History: Reports: Hx Cardiac Catheterization - stent x1, Hx Cardiac Surgery - pace/defib, Hx Coronary Stent, Hx Internal Defibrillator, Hx Pacemaker - AICD. Denies: Hx Hysterectomy - Immunizations Hx Diphtheria, Pertussis, Tetanus Vaccination: No History of Influenza Vaccine for 06/2017 - 11/2017 Season: No Influenza Administration Date for 06/2017 - 11/2017 Season: 06/28/18 Physical Exam - Respiratory Respiratory status: Respiratory distress, Tachypnea Chest status: Nontender Breath sounds: Productive cough, Rhonchi, Wheezing, Other Chest palpation: Normal Course - Re-evaluation Re-evalutation: 05/17/19 17:55 I have greeted and performed a rapid initial assessment of this patient. A comprehensive ED assessment and evaluation of the patient, analysis of test results and completion of the medical decision making process will be conducted by additional ED providers. Doctor's Discharge - Discharge Referrals: VU GUZMAN MD [Primary Care Provider] - Follow up as needed
[2019-05-17] MEDS ORDERED: MORPHINE SULFATE 10 MG/ML INJ IV ONE (18:00)
--- NOTE | 2019-05-17 18:18 | RADIOLOGY REPORT (SQ) ---
EXAM DESCRIPTION: CHEST 2 VIEWS COMPLETED DATE/TIME: 05/17/2019 6:04 pm REASON FOR STUDY: productive cough, shortness of breath COMPARISON: 07/27/2018 NUMBER OF VIEWS: Two views. TECHNIQUE: Frontal and lateral radiographic views of the chest acquired. LIMITATIONS: None. FINDINGS: LUNGS AND PLEURA: Chronic elevation right diaphragm. Diffuse interstitial pattern with mo re confluent density in the lung bases. No large effusions. MEDIASTINUM AND HILAR STRUCTURES: Stable. HEART AND VASCULAR STRUCTURES: Cardiac enlargement. Vascular congestion. BONES: No acute findings. HARDWARE: Stable position of defibrillator. OTHER: No other significant finding. IMPRESSION: CARDIAC ENLARGEMENT. VASCULAR CONGESTION. TECHNICAL DOCUMENTATION: JOB ID: [id number] [employer]- All Rights Reserved Reading location - IP/workstation name: [email or web address]
[2019-05-17 18:22] LABS: INTERNATIONAL RATION (INR) 1.64; PROTHROMBIN TIME 19.6 SEC (11.4-15.4)
[2019-05-17 18:23] LABS: PARTIAL THROMBOPLASTIN TIME 32.5 SEC (23.5-35.8)
[2019-05-17 18:25] LABS: HEMATOCRIT 38.5 % (36.0-47.0); HEMOGLOBIN 11.7 g/dL (12.0-15.5); MEAN CORPUSCULAR HEMOGLOBIN 22.9 pg (27.0-33.4); MEAN CORPUSCULAR HGB CONC 30.5 g/dL (32.0-36.0); MEAN CORPUSCULAR VOLUME 75 fl (80-97); PLATELET COUNT 265 10^3/uL (150-450); RED BLOOD COUNT 5.11 10^6/uL (3.72-5.28); RED CELL DISTRIBUTION WIDTH 25.5 % (11.5-14.0); WHITE BLOOD COUNT 5.1 10^3/uL (4.0-10.5)
[2019-05-17] MEDS ORDERED: DIPHENHYDRAMINE HCL 50 MG/ML VIAL IV ONE (18:36)
--- NOTE | 2019-05-17 18:55 | ER Document Report ---
ED Cardiac - General Chief Complaint: Chest Tightness Stated Complaint: CHEST DISCOMFORT Time Seen by Provider: 05/17/19 17:41 Primary Care Provider: VU GUZMAN MD [Primary Care Provider] - Follow up as needed Information source: Patient TRAVEL OUTSIDE OF THE [place] 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 She states she was scheduled to have a colonoscopy and an upper endoscopy. However when she told him that she was having some substernal chest pain referred her to the emergency department and told her that she would need admission. She states she has had substernal chest pain several days. Nothing makes it better or worse. It is a sharp sensation in between her breast. It does make her feel short of breath. It radiates into her back. She states she is also had shortness of breath and cough. Patient denies any vomiting or diarrhea. She has had a cough productive of some white sputum. Symptoms have been moderate. She does have a history of cardiac disease. She has a severely compromised ejection fraction. She has stents placed. She also has a defibrillator and pacemaker. - Related Data Allergies/Adverse Reactions: hydrocodone bitartrate [From Vicodin] Allergy (Verified 07/27/18 11:36) Hives hydromorphone HCl [From Dilaudid] Allergy (Verified 05/16/19 14:28) Hives levofloxacin [From Levaquin] Allergy (Verified 07/27/18 11:36) Hives oxycodone HCl [From Percocet] Allergy (Verified 07/27/18 11:36) Hives tramadol [Tramadol] Allergy (Verified 07/27/18 11:36) Hives Past Medical History - General Information source: Patient - Social History Smoking Status: Never Smoker Chew tobacco use (# tins/day): No Frequency of alcohol use: None Drug Abuse: None Family History: None, Reviewed & Not Pertinent, Hypertension Patient has suicidal ideation: No Patient has homicidal ideation: No - Past Medical History Cardiac Medical History: Reports: Hx Congestive Heart Failure - Chronic systolic and diastolic heart failure, Hx Coronary Artery Disease, Hx Heart Attack - STENTS/DEFIBRILLATOR/PACEMAKER, Hx Hypertension, Hx Pulmonary Embolism Pulmonary Medical History: Reports: Hx COPD, Hx Pneumonia Denies: Hx Asthma, Hx Bronchitis, Hx Tuberculosis Neurological Medical History: Denies: Hx Cerebrovascular Accident, Hx Seizures Endocrine Medical History: Reports: Hx Diabetes Mellitus Type 2 - non compliant (pt has snacks in her suitcase etc) Renal/ Medical History: Reports: Hx Renal Insufficiency. Denies: Hx Perit messer Dialysis GI Medical History: Reports: Hx Gastroesophageal Reflux Disease Musculoskeletal Medical History: Denies Hx Arthritis Skin Medical History: Reports Hx Cellulitis - Left upper extremity cellulitis week and a half ago Psychiatric Medical History: Reports: Hx Depression Past Surgical History: Reports: Hx Cardiac Catheterization - stent x1, Hx Cardiac Surgery - pace/defib, Hx Coronary Stent, Hx Internal Defibrillator, Hx Pacemaker - AICD. Denies: Hx Hysterectomy - Immunizations Hx Diphtheria, Pertussis, Tetanus Vaccination: No Hx Pneumococcal Vaccination: 06/28/13 Review of Systems - Review of Systems Constitutional: Malaise, Weakness Cardiovascular: Chest pain, Dyspnea Respiratory: Cough, Short of breath -: Yes All other systems reviewed and negative Physical Exam - Vital signs Vitals: Resp Pulse Ox 12 97 05/17/19 17:47 05/17/19 17:47 Interpretation: Normal - General General appearance: Appears well, Alert - HEENT Head: Normocephalic, Atraumatic Eyes: Normal Pupils: PERRL - Respiratory Respiratory status: No respiratory distress Chest status: Nontender Breath sounds: Decreased air movement Chest palpation: Normal - Cardiovascular Rhythm: Regular Heart sounds: Normal auscultation Murmur: No - Abdominal Inspection: Normal Distension: No distension Bowel sounds: Normal Tenderness: Nontender Organomegaly: No organomegaly - Back Back: Normal, Nontender - Extremities General upper extremity: Normal inspection, Nontender, Normal color, Normal ROM, Normal temperature General lower extremity: Normal inspection, Nontender, Edema - Patient has 2+ pitting edema bilaterally of the lower extremities, Normal color, Normal ROM, Normal temperature, Normal weight bearing. No: Andrew's sign - Neurological Neuro grossly intact: Yes Cognition: Normal Orientation: AAOx4 [place] Coma Scale Eye Opening: Spontaneous [place] Coma Scale Verbal: Oriented Vince Coma Scale Motor: Obeys Commands [place] Coma Scale Total: 15 Speech: Normal Motor strength normal: LUE, RUE, LLE, RLE Sensory: Normal - Psychological Associated symptoms: Normal affect, Normal mood - Skin Skin Temperature: Warm Skin Moisture: Dry Skin Color: Normal Course - Re-evaluation Re-evalutation: 05/17/19 20:17 Patient currently resting comfortably in the bed. Patient's BNP is not significantly different from previous BNPs. Troponin is not elevated. No evidence of acute ischemia on EKG. Chest x-ray shows some congestion however he r respirations are not labored and she has a saturation of 97% on room air. I discussed possible diuretic with the admitting physician but he asked me to hold off until he evaluates her. I thought that was reasonable. I also did not give the patient nitro due to her lower blood pressure. My suspicion that the patient is having an acute coronary event is low however patient has significant risk factors so it seems prudent to have her admit for serial enzymes and further evaluation. - Vital Signs Vital signs: Temp Pulse Resp BP Pulse Ox 98.8 F 12 103/89 H 99 05/17/19 18:04 05/17/19 17:53 05/17/19 17:53 05/17/19 17:53 - Laboratory Result Diagrams: 05/17/19 17:48 05/17/19 17:48 Laboratory results interpreted by me: 05/17/19 05/17/19 05/17/19 17:48 17:48 17:48 Hgb 11.7 L MCV 75 L MCH 22.9 L MCHC 30.5 L RDW 25.5 H Seg Neuts % (Manual) 89 H Lymphocytes % (Manual) 6 L Abs Lymphs (Manual) 0.3 L PT 19.6 H NT-Pro-B Natriuret Pep 09097 H 05/17/19 20:16 Laboratory 05/17/19 05/17/19 05/17/19 17:48 17:48 17:48 WBC 5.1 RBC 5.11 Hgb 11.7 L Hct 38.5 MCV 75 L MCH 22.9 L MCHC 30.5 L RDW 25.5 H Plt Count 265 Total Counted 100 Seg Neutrophils % Not Reportable Seg Neuts % (Manual) 89 H Lymphocytes % Not Reportable Lymphocytes % (Manual) 6 L Monocytes % Not Reportable Monocytes % (Manual) 4 Eosinophils % Not Reportable Eosinophils % (Manual) 1 Basophils % Not Reportable Basophils % (Manual) 0 Absolute Neutrophils Not Reportable Abs Neuts (Manual) 4.5 Absolute Lymphocytes Not Reportable Abs Lymphs (Manual) 0.3 L Absolute Monocytes Not Reportable Abs Monocytes (Manual) 0.2 Absolute Eosinophils Not Reportable Absolute Eos (Manual) 0.1 Absolute Basophils Not Reportable Abs Basophils (Manual) 0.0 Toxic Vacuolation PRESENT Platelet Comment ADEQUATE Polychromasia 1+ Poikilocytosis 1+ Anisocytosis 3+ Microcytosis 1+ Ovalocytes 1+ Aurora Cells 1+ PT 19.6 H INR 1.64 APTT 32.5 Sodium Cancelled Potassium Cancelled Chloride Cancelled Carbon Dioxide Cancelled Anion Gap Cancelled BUN Cancelled Creatinine Cancelled Est GFR ( Amer) Cancelled Est GFR (Non-Af Amer) Cancelled Glucose Cancelled Calcium Cancelled Total Bilirubin Cancelled Direct Bilirubin Cancelled Neonat Total Bilirubin Cancelled Neonat Direct Bilirubin Cancelled Neonat Indirect Bili Cancelled AST Cancelled ALT Cancelled Alkaline Phosphatase Cancelled Troponin I NT-Pro-B Natriuret Pep Total Protein Cancelled Albumin Cancelled 05/17/19 17:48 WBC RBC Hgb Hct MCV MCH MCHC RDW Plt Count Total Counted Seg Neutrophils % Seg Neuts % (Manual) Lymphocytes % Lymphocytes % (Manual) Monocytes % Monocytes % (Manual) Eosinophils % Eosinophils % (Manual) Basophils % Basophils % (Manual) Absolute Neutrophils Abs Neuts (Manual) Absolute Lymphocytes Abs Lymphs (Manual) Absolute Monocytes Abs Monocytes (Manual) Absolute Eosinophils Absolute Eos (Manual) Absolute Basophils Abs Basophils (Manual) Toxic Vacuolation Platelet Comment Polychromasia Poikilocytosis Anisocytosis Microcytosis Ovalocytes Aurora Cells PT INR APTT Sodium Potassium Chloride Carbon Dioxide Anion Gap BUN Creatinine Est GFR ( Amer) Est GFR (Non-Af Amer) Glucose Calcium Total Bilirubin Direct Bilirubin Neonat Total Bilirubin Neonat Direct Bilirubin Neonat Indirect Bili AST ALT Alkaline Phosphatase Troponin I 0.041 NT-Pro-B Natriuret Pep 73979 H Total Protein Albumin - Diagnostic Test Radiology reviewed: Image reviewed, Reports reviewed Radiology results interpreted by me: 05/17/19 20:17 Chest X-Ray 05/17/19 17:52 IMPRESSION: CARDIAC ENLARGEMENT. VASCULAR CONGESTION. - EKG Interpretation by Me Rate: Normal - 87 Rhythm: Other - Patient has a paced rhythm. rate 87. Voltage: No: Increased voltage Discharge - Discharge Clinical Impression: Chest pain at rest, Cardiac defibrillator in situ, Bilateral lower extremity edema, Shortness of breath, Peripheral edema, Morbid obesity Chest pain Qualifiers: Chest pain type: unspecified Qualified Code(s): R07.9 - Chest pain, unspecified Condition: Serious Disposition: ADMITTED INPATIENT Admitting Provider: Dania (Hospitalist) Unit Admitted: Telemetry Referrals: VU GUZMAN MD [Primary Care Provider] - Follow up as needed
[2019-05-17 18:58] LABS: TROPONIN I 0.041 ng/mL
[2019-05-17 18:59] LABS: ABSOLUTE LYMPHOCYTES# (MANUAL) 0.3 10^3/uL (0.5-4.7); ABSOLUTE MONOCYTES # (MANUAL) 0.2 10^3/uL (0.1-1.4); BASOPHILS % (MANUAL) 0 % (0-2); EOSINOPHILS % (MANUAL) 1 % (0-6); LYMPHOCYTES % (MANUAL) 6 % (13-45); MONOCYTES % (MANUAL) 4 % (3-13); SEGMENTED NEUTROPHILS % (MAN) 89 % (42-78); TOTAL CELLS COUNTED 100
[2019-05-17 19:02] LABS: ANISOCYTOSIS 3+; TOXIC VACUOLATION PRESENT
[2019-05-17 19:03] LABS: BURR CELLS 1+; OVALOCYTES 1+; PLATELET COMMENT ADEQUATE; POIKILOCYTOSIS 1+; POLYCHROMASIA 1+
--- NOTE | 2019-05-17 19:57 | EKG REPORT ---
SEVERITY:- ABNORMAL ECG - A-V DUAL-PACED COMPLEXES W/ SOME INHIBITION : Confirmed by: Maite Carter MD 17-May-2019 19:56:03
[2019-05-17 20:22] LABS: ALBUMIN 2.5 g/dL (3.5-5.0); ALKALINE PHOSPHATASE 137 U/L (38-126); ANION GAP 9 (5-19); ASPARTATE AMINO TRANSFERASE 24 U/L (14-36); BILIRUBIN,DIRECT 0.3 mg/dL (0.0-0.4); BLOOD UREA NITROGEN 34 mg/dL (7-20); CALCIUM 8.4 mg/dL (8.4-10.2); CARBON DIOXIDE 20 mmol/L (22-30); CHLORIDE 109 mmol/L (98-107); GLUCOSE 121 mg/dL (75-110); POTASSIUM 3.5 mmol/L (3.6-5.0); TOTAL PROTEIN 4.7 g/dL (6.3-8.2)
[2019-05-17] MEDS ORDERED: ASPIRIN 81 MG TABLET, ENT COATED PO ONE (23:00)
[2019-05-17] MEDS ORDERED: FERROUS SULFATE 325 MG TABLET PO ONE (23:00)
[2019-05-17] MEDS ORDERED: FUROSEMIDE 80 MG TABLET PO ONE (23:30)
[2019-05-17] MEDS ORDERED: CALCITRIOL 0.25 MCG CAPSULE PO ONE (23:30)
[2019-05-18] MEDS ORDERED: FUROSEMIDE 40 MG TABLET ONE (00:02)
[2019-05-18 02:17] LABS: CREATINE KINASE MB 4.07 ng/mL (<4.55); TROPONIN I 0.048 ng/mL
[2019-05-18] MEDS: FUROSEMIDE 80 MG TABLET PO SCH ×4 (06:24→21:48)
[2019-05-18] MEDS: HEPARIN SOD (PORCINE) 5,000 UNIT/ML 1 ML VIAL SUBCUT SCH ×3 (06:24→21:42)
[2019-05-18 06:28] LABS: CHOLESTEROL 155.68 mg/dL (0-200); TRIGLYCERIDES 134 mg/dL (<150)
[2019-05-18 06:39] LABS: DIRECT LDL 115 mg/dL (<100)
[2019-05-18 06:44] LABS: CREATINE KINASE MB 4.14 ng/mL (<4.55); TROPONIN I 0.053 ng/mL
[2019-05-18] MEDS: ASPIRIN 81 MG TABLET, ENT COATED PO SCH ×2 (11:02→11:06)
[2019-05-18] MEDS: CALCITRIOL 0.25 MCG CAPSULE PO SCH (11:02)
[2019-05-18] MEDS: PANTOPRAZOLE SODIUM 40 MG TABLET.DR PO SCH (11:02)
[2019-05-18] MEDS: FERROUS SULFATE 325 MG TABLET PO SCH (11:03)
[2019-05-18 13:28] LABS: CREATINE KINASE MB 4.57 ng/mL (<4.55); TROPONIN I 0.044 ng/mL
[2019-05-18] MEDS ORDERED: DIPHENHYDRAMINE HCL 50 MG CAPSULE PO PRN (15:04)
--- NOTE | 2019-05-18 17:31 | EKG REPORT ---
SEVERITY:- ABNORMAL ECG - ATRIAL-SENSED VENTRICULAR-PACED RHYTHM : Confirmed by: Maite Carter MD 18-May-2019 17:29:59
--- NOTE | 2019-05-18 17:57 | PDOC H&P ---
History of Present Illness Admission Date/PCP: 05/17/19 20:28 VU GUZMAN MD History of Present Illness: BERONICA YEUNG is a 44 year old female,She was sent to the emergency room by the vault person, she was scheduled for outpatient EGD and colonoscopy however she stated that she was having chest pain, the chest pain was substernal because of her symptoms, Dr. Mcneal the vault person referred her to the emergency room for evaluation. In the emergency room she was evaluated it was felt that she needed to be admitted to the hospital for further evaluation. 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 3 sets of cardiac enzymes were negative for acute AZ, BNP is elevated but she has a history of chronic systolic and diastolic heart failure, 2D echo is ordered to assess LV function Past Medical History Cardiac Medical History: Reports: Congestive Heart Failure - Chronic systolic and diastolic heart failure, Coronary Artery Disease, Myocardial Infarction - STENTS/DEFIBRILLATOR/PACEMAKER, Hypertension, Pulmonary Embolism Pulmonary Medical History: Reports: Chronic Obstructive Pulmonary Disease (COPD), Pneumonia Neurological Medical History: Denies: Seizures Endocrine Medical History: Reports: Diabetes Mellitus Type 2 - non compliant (pt has snacks in her suitcase etc) GI Medical History: Reports: Gastroesophageal Reflux Disease Musculoskeltal Medical History: Denies: Arthritis Psychiatric Medical History: Reports: Depression Hematology: Reports: Anemia Past Surgical History Past Surgical History: Reports: Cardiac Catheterization - stent x1, Coronary Stent, Internal Defibrillator, Pacemaker - AICD Denies: Hysterectomy Social History Smoking Status: Never Smoker Frequency of Alcohol Use: None Hx Recreational Drug Use: No Drugs: None Hx Prescription Drug Abuse: No - Advance Directive Resuscitation Status: Full Code Family History Family History: None, Reviewed & Not Pertinent, Hypertension Parental Family History Reviewed: Yes Children Family History Reviewed: Yes Sibling(s) Family History Reviewed.: Yes Medication/Allergy Home Medications: Bumetanide [Bumex 1 mg Tablet] 3 mg PO 0600 #90 tablet 07/28/18 Doxepin HCl [Silenor] 6 mg PO QHS #30 tablet 07/28/18 Calcitriol [Rocaltrol 0.25 mcg Capsule] 0.25 mcg PO DAILY 05/17/19 Ergocalciferol (Vitamin D2) [Drisdol 50,000 Unit (1.25MG) Capsule] 50,000 unit PO MO@1000 05/17/19 Ferrous Sulfate [Feosol 325 mg Tablet] 325 mg PO DAILY 05/17/19 Furosemide [Lasix 80 mg Tablet] 80 mg PO Q8 05/17/19 Pantoprazole Sodium [Protonix [address] Tablet] 40 mg PO QAM 05/17/19 Atorvastatin Calcium [Lipitor 80 mg Tablet] 80 mg PO QHS 05/18/19 Carvedilol [Coreg 12.5 mg Tablet] 12.5 mg PO Q12 05/18/19 Isosorbide Mononitrate [Imdur 30 mg Tablet.er] 30 mg PO DAILY@0600,1200,1800 05/18/19 Sacubitril/Valsartan [Entresto 97 mg/103 mg Tablet] 1 tab PO Q12 05/18/19 Warfarin Sodium [Coumadin 5 mg Tablet] 5 mg PO DAILY 05/18/19 Warfarin Sodium [Coumadin 7.5 mg Tablet] 7.5 mg PO TUTH@1000 05/18/19 Allergies/Adverse Reactions: hydrocodone bitartrate [From Vicodin] Allergy (Verified 07/27/18 11:36) Hives hydromorphone HCl [From Dilaudid] Allergy (Verified 05/16/19 14:28) Hives levofloxacin [From Levaquin] Allergy (Verified 07/27/18 11:36) Hives oxycodone HCl [From Percocet] Allergy (Verified 07/27/18 11:36) Hives tramadol [Tramadol] Allergy (Verified 07/27/18 11:36) Hives Review of Systems Constitutional: ABSENT: chills, fever(s), headache(s), weight gain, weight loss Eyes: ABSENT: visual disturbances Ears: ABSENT: hearing changes Cardiovascular: PRESENT: chest pain. ABSENT: dyspnea on exertion, edema, orthropnea, palpitations Respiratory: ABSENT: cough, hemoptysis Gastrointestinal: ABSENT: abdominal pain, constipation, diarrhea, hematemesis, hematochezia, nausea, vomiting Genitourinary: ABSENT: dysuria, hematuria Musculoskeletal: PRESENT: back pain. ABSENT: joint swelling Integumentary: ABSENT: rash, wounds Neurological: ABSENT: abnormal gait, abnormal speech, confusion, dizziness, focal weakness, syncope Psychiatric: ABSENT: anxiety, depression, homidical ideation, suicidal ideation Endocrine: ABSENT: cold intolerance, heat intolerance, menstrual abnormalities, polydipsia, polyuria Hematologic/Lymphatic: ABSENT: easy bleeding, easy bruising, lymphadenopathy Physical Exam Vital Signs: Temp Pulse Resp BP Pulse Ox 97.2 F 71 18 139/91 H 99 05/18/19 17:02 05/18/19 17:02 05/18/19 17:02 05/18/19 17:02 05/18/19 17:02 Intake & Output 05/17/19 05/18/19 05/19/19 06:59 06:59 06:59 Intake Total 422 300 Balance 422 300 Weight 108.3 kg General appearance: PRESENT: no acute distress, well-developed, well-nourished Head exam: PRESENT: atraumatic, normocephalic Eye exam: PRESENT: conjunctiva pink, EOMI, PERRLA Ear exam: PRESENT: normal external ear exam Mouth exam: PRESENT: moist, tongue midline Neck exam: PRESENT: full ROM Respiratory exam: PRESENT: clear to auscultation abdi Cardiovascular exam: PRESENT: RRR, +S1, +S2 Pulses: PRESENT: normal dorsalis pedis pul, +2 pedal pulses bilateral Vascular exam: PRESENT: normal capillary refill GI/Abdominal exam: PRESENT: normal bowel sounds, soft Rectal exam: PRESENT: deferred Neurological exam: PRESENT: alert, awake, oriented to person, oriented to place, oriented to time, oriented to situation, CN II-XII grossly intact Psychiatric exam: PRESENT: appropriate affect, normal mood Skin exam: PRESENT: dry, intact, warm Results Laboratory Results: 05/17/19 17:48 05/17/19 19:40 05/17/19 05/17/19 05/17/19 17:48 17:48 19:40 WBC 5.1 RBC 5.11 Hgb 11.7 L Hct 38.5 MCV 75 L MCH 22.9 L MCHC 30.5 L RDW 25.5 H Plt Count 265 Seg Neutrophils % Not Reportable Lymphocytes % Not Reportable Monocytes % Not Reportable Eosinophils % Not Reportable Basophils % Not Reportable Absolute Neutrophils Not Reportable Absolute Lymphocytes Not Reportable Absolute Monocytes Not Reportable Absolute Eosinophils Not Reportable Absolute Basophils Not Reportable Sodium Cancelled 137.8 Potassium Cancelled 3.5 L Chloride Cancelled 109 H Carbon Dioxide Cancelled 20 L Anion Gap Cancelled 9 BUN Cancelled 34 H Creatinine Cancelled 1.92 H Est GFR ( Amer) Cancelled 34 L Est GFR (Non-Af Amer) Cancelled 28 L Glucose Cancelled 121 H Calcium Cancelled 8.4 Total Bilirubin Cancelled 1.0 AST Cancelled 24 Alkaline Phosphatase Cancelled 137 H Total Protein Cancelled 4.7 L Albumin Cancelled 2.5 L Triglycerides Cholesterol LDL Cholesterol Direct VLDL Cholesterol HDL Cholesterol 05/18/19 05:08 WBC RBC Hgb Hct MCV MCH MCHC RDW Plt Count Seg Neutrophils % Lymphocytes % Monocytes % Eosinophils % Basophils % Absolute Neutrophils Absolute Lymphocytes Absolute Monocytes Absolute Eosinophils Absolute Basophils Sodium Potassium Chloride Carbon Dioxide Anion Gap BUN Creatinine Est GFR ( Amer) Est GFR (Non-Af Amer) Glucose Calcium Total Bilirubin AST Alkaline Phosphatase Total Protein Albumin Triglycerides 134 Cholesterol 155.68 LDL Cholesterol Direct 115 H VLDL Cholesterol 27.0 HDL Cholesterol 31 L 05/17/19 05/18/19 05/18/19 17:48 01:36 05:08 CK-MB (CK-2) 4.07 4.14 Troponin I 0.041 0.048 0.053 NT-Pro-B Natriuret Pep 26499 H 05/18/19 12:38 CK-MB (CK-2) 4.57 H Troponin I 0.044 NT-Pro-B Natriuret Pep Impressions: Chest X-Ray 05/17/19 17:52 IMPRESSION: CARDIAC ENLARGEMENT. VASCULAR CONGESTION. Assessment & Plan - Diagnosis (1) Chest pain Qualifiers: Chest pain type: unspecified Qualified Code(s): R07.9 - Chest pain, unspecified Is this a current diagnosis for this admission?: Yes Plan: The chest pain she has is in the context of generalized body pain she is experiencing, I do not believe the chest pain represent ischemic chest pain, 3 sets of enzymes so far negative for acute AZ. Consultation will be requested from Dr. Mcneal. The Coumadin is on hold for 5 days in anticipation of EGD and colonoscopy (2) Chronic combined systolic (congestive) and diastolic (congestive) heart failure Is this a current diagnosis for this admission?: Yes (3) Focal segmental glomerulosclerosis Is this a current diagnosis for this admission?: Yes (4) Focal segmental glomerulosclerosis Is this a current diagnosis for this admission?: Yes
[2019-05-18] MEDS: CARVEDILOL 12.5 MG TABLET PO SCH (20:33)
[2019-05-18] MEDS: DIPHENHYDRAMINE HCL 50 MG/ML VIAL IV PRN (21:42)
[2019-05-18] MEDS: SACUBITRIL/VALSARTAN 97 MG/103 MG TABLET PO SCH (21:42)
[2019-05-18] MEDS: ATORVASTATIN CALCIUM 80 MG TABLET PO SCH (21:42)
[2019-05-18] MEDS: MORPHINE SULFATE 10 MG/ML INJ IV PRN (21:43)
[2019-05-19] MEDS: CARVEDILOL 12.5 MG TABLET PO SCH ×2 (05:19→17:30)
[2019-05-19] MEDS: HEPARIN SOD (PORCINE) 5,000 UNIT/ML 1 ML VIAL SUBCUT SCH ×3 (05:19→21:33)
[2019-05-19] MEDS: FUROSEMIDE 80 MG TABLET PO SCH ×3 (05:19→21:33)
[2019-05-19] MEDS: ISOSORBIDE MONONITRATE 30 MG TAB.ER.24H PO SCH ×3 (05:21→17:34)
[2019-05-19] MEDS: SACUBITRIL/VALSARTAN 97 MG/103 MG TABLET PO SCH ×2 (11:18→21:33)
[2019-05-19] MEDS: BUMETANIDE 1 MG TABLET PO SCH ×2 (11:18→17:31)
[2019-05-19] MEDS: ASPIRIN 81 MG TABLET, ENT COATED PO SCH (11:18)
[2019-05-19] MEDS: PANTOPRAZOLE SODIUM 40 MG TABLET.DR PO SCH (11:19)
[2019-05-19] MEDS: FERROUS SULFATE 325 MG TABLET PO SCH (11:19)
[2019-05-19] MEDS: CALCITRIOL 0.25 MCG CAPSULE PO SCH (11:19)
[2019-05-19] MEDS ORDERED: MAGNESIUM CITRATE 296 ML BOTTLE PO ONE (15:00)
--- NOTE | 2019-05-19 18:50 | XCELERA REPORT ---
[address] [address] Transthoracic Echocardiogram Report Name: BERONICA YEUNG Age: 44 yrs Gender: Female : 1975 Patient Status: Inpatient Patient Location: [address] [place], [place] [address] Study Date: 05/18/2019 09:21 AM Height: 68 in Weight: 240 lb BSA: 2.2 m2 Procedure: A two-dimensional transthoracic echocardiogram with color flow and Doppler was performed. Study Quality: Fair. Reason For Study: CHF History: CHF. Ordering Physician: VU GUZMAN Performed By: Dominique Pérez Interpretation Summary Study Quality: Fair. The left ventricle is moderately to severly dilated. There is normal left ventricular wall thickness. LV EF is Less than 15% Left ventricular systolic function is severely reduced. There is severe global hypokinesis of the left ventricle. There is no thrombus. cannot assess ASD ,VSD , or PFO. The right ventricle is moderately dilated. The right ventricular systolic function is moderate to severely reduced. AICD / PACMAKER LEAD IN RA AND RV. The right atrium is moderately dilated. The left atrium is severely dilated. There is no evidence of mitral valve prolapse. There is no vegetation seen on the mitral valve. There is no mitral valve stenosis. Eccentric posteriorly directed MR jet. There is no aortic valvular vegetation. There is no aortic valve stenosis There is no LVOT obstruction. No aortic regurgitation is present. There is no tricuspid stenosis. There is a mild to moderate amount of tricuspid regurgitation There is servere pulmonary hypertension by echo RVSP is at least 69 mm of Hg , with RA mean of at least 20. There is no pulmonic valvular stenosis. There is a mild amount of pulmonic regurgitation The aortic root is normal size. The inferior vena cava appeared dilated and did not change with respiration (RAP > 20 mmHg) There is no pericardial effusion. MMode/2D Measurements & Calculations RVDd: 4.5 cm LVIDd: 6.5 cm FS: 6.8 % Ao root diam: 2.7 cm IVSd: 1.1 cm LVIDs: 6.0 cm EDV(Teich): 214.1 ml Ao root area: 5.6 cm2 LVPWd: 1.1 cm ESV(Teich): 182.3 ml EF(Teich): 14.9 % Doppler Measurements & Calculations MV E max summer: MV dec slope: Ao V2 max: LV V1 max P.1 cm/sec 776.7 cm/sec2 117.5 cm/sec 2.6 mmHg MV A max summer: MV dec time: 0.17 sec Ao max PG: LV V1 max: 74.3 cm/sec 5.5 mmHg 80.9 cm/sec MV E/A: 1.7 PA V2 max: TR max summer: 63.8 cm/sec 348.7 cm/sec PA max P.6 mmHg TR max P.6 mmHg Left Ventricle The left ventricle is moderately to severly dilated. There is normal left ventricular wall thickness. LV EF is Less than 15%. Left ventricular systolic function is severely reduced. There is severe global hypokinesis of the left ventricle. There is no thrombus. cannot assess ASD ,VSD , or PFO. Right Ventricle The right ventricle is moderately dilated. The right ventricle is not well visualized secondary to technical limitations. AICD / PACMAKER LEAD IN RA AND RV. The right ventricular systolic function is moderate to severely reduced. Atria The right atrium is moderately dilated. The left atrium is severely dilated. Mitral Valve There is no evidence of mitral valve prolapse. There is no vegetation seen on the mitral valve. There is no mitral valve stenosis. Eccentric posteriorly directed MR jet. Aortic Valve There is no aortic valvular vegetation. There is no aortic valve stenosis. There is no LVOT obstruction. No aortic regurgitation is present. Tricuspid Valve There is no tricuspid stenosis. There is a mild to moderate amount of tricuspid regurgitation. There is servere pulmonary hypertension by echo. RVSP is at least 69 mm of Hg , with RA mean of at least 20. Pulmonic Valve There is no pulmonic valvular stenosis. There is a mild amount of pulmonic regurgitation. Great Vessels The aortic root is normal size. The inferior vena cava appeared dilated and did not change with respiration (RAP > 20 mmHg). Effusions There is no pericardial effusion. : VU GUZMAN > Maite Carter
--- NOTE | 2019-05-19 21:11 | PDOC PROGRESS REPORT ---
Subjective Progress Note for:: 05/19/19 Subjective:: She was admitted yesterday, she has cardiomyopathy, chronic, she is scheduled for colonoscopy and EGD tomorrow Reason For Visit: CHF EXACERBATION Physical Exam Vital Signs: Temp Pulse Resp BP Pulse Ox 98.4 F 70 22 H 111/71 100 05/19/19 20:05 05/19/19 20:05 05/19/19 20:05 05/19/19 20:05 05/19/19 20:05 Intake & Output 05/18/19 05/19/19 05/20/19 06:59 06:59 06:59 Intake Total 422 1260 1010 Output Total 825 Balance 422 1260 185 Weight 108.3 kg 108 kg General appearance: PRESENT: no acute distress Eye exam: PRESENT: PERRLA Respiratory exam: PRESENT: clear to auscultation abdi Cardiovascular exam: PRESENT: +S1, +S2 GI/Abdominal exam: PRESENT: soft Neurological exam: PRESENT: alert Results Laboratory Results: 05/17/19 17:48 05/17/19 19:40 05/17/19 05/18/19 05/18/19 17:48 01:36 05:08 CK-MB (CK-2) 4.07 4.14 Troponin I 0.041 0.048 0.053 NT-Pro-B Natriuret Pep 50644 H 05/18/19 12:38 CK-MB (CK-2) 4.57 H Troponin I 0.044 NT-Pro-B Natriuret Pep Impressions: Chest X-Ray 05/17/19 17:52 IMPRESSION: CARDIAC ENLARGEMENT. VASCULAR CONGESTION. Assessment & Plan - Diagnosis (1) Chest pain Qualifiers: Chest pain type: unspecified Qualified Code(s): R07.9 - Chest pain, unspecified Is this a current diagnosis for this admission?: Yes (2) Chronic combined systolic (congestive) and diastolic (congestive) heart failure Is this a current diagnosis for this admission?: Yes (3) Focal segmental glomerulosclerosis Is this a current diagnosis for this admission?: Yes (4) Focal segmental glomerulosclerosis Is this a current diagnosis for this admission?: Yes (5) Chronic pain syndrome Is this a current diagnosis for this admission?: Yes
[2019-05-19] MEDS: ATORVASTATIN CALCIUM 80 MG TABLET PO SCH (21:33)
[2019-05-19] MEDS ORDERED: BISACODYL 5 MG TABEC PO ONE (22:00)
[2019-05-19] MEDS: DIPHENHYDRAMINE HCL 50 MG/ML VIAL IV PRN (22:12)
[2019-05-19] MEDS: MORPHINE SULFATE 10 MG/ML INJ IV PRN (22:12)
[2019-05-20] MEDS: HEPARIN SOD (PORCINE) 5,000 UNIT/ML 1 ML VIAL SUBCUT SCH ×3 (05:47→22:00)
[2019-05-20] MEDS: FUROSEMIDE 80 MG TABLET PO SCH ×3 (05:47→21:59)
[2019-05-20] MEDS: CARVEDILOL 12.5 MG TABLET PO SCH ×2 (05:47→17:43)
[2019-05-20] MEDS: BUMETANIDE 1 MG TABLET PO SCH (05:47)
[2019-05-20] MEDS: ISOSORBIDE MONONITRATE 30 MG TAB.ER.24H PO SCH ×3 (05:49→17:43)
[2019-05-20] MEDS ORDERED: PEG 3350/NA SULF,BICARB,CL/KCL 4000 ML PO ONE (07:00)
[2019-05-20] MEDS: ASPIRIN 81 MG TABLET, ENT COATED PO SCH (10:08)
[2019-05-20] MEDS: PANTOPRAZOLE SODIUM 40 MG TABLET.DR PO SCH (10:09)
[2019-05-20] MEDS: CALCITRIOL 0.25 MCG CAPSULE PO SCH (10:09)
[2019-05-20] MEDS: SACUBITRIL/VALSARTAN 97 MG/103 MG TABLET PO SCH ×2 (10:09→21:59)
[2019-05-20] MEDS ORDERED: DIPHENHYDRAMINE HCL 50 MG/ML VIAL ONE (17:19)
[2019-05-20] MEDS ORDERED: ONDANSETRON HCL INJ/PF 4 MG/2 ML SDV ONE (17:19)
[2019-05-20] MEDS ORDERED: FENTANYL CITRATE INJ/PF 100 MCG/2 ML AMPUL ONE (17:19)
[2019-05-20] MEDS ORDERED: MIDAZOLAM 2 MG/2 ML INJ ONE (17:20)
[2019-05-20] MEDS ORDERED: NALOXONE HCL INJ/PF 0.4 MG/1 ML SDV ONE (17:20)
[2019-05-20] MEDS ORDERED: FLUMAZENIL INJ 0.5 MG/5 ML VIAL ONE (17:20)
[2019-05-20] MEDS ORDERED: GLUCAGON,HUMAN RECOMB 1 MG INJ ONE (17:20)
[2019-05-20] MEDS ORDERED: EPINEPHRINE INJ 1 MG/10 ML DISP.SYRIN ONE (17:20)
--- NOTE | 2019-05-20 18:00 | PDOC CONSULTATION ---
Consultation Consult Date: 05/18/19 Provider Consulted: SHEILA MUNOZ History of Present Illness Admission Date/PCP: 05/17/19 20:28 VU GUZMAN MD History of Present Illness: BERONICA YENUG is a 44 year old femalePatient who was admitted on 05/17/2019 for chest pain. She had come to endoscopy department for an outpatient EGD and colonoscopy but she did not have a ride home so the procedure was canceled. She then presented to the emergency room complaining of chest pain. I saw her in the office a few weeks ago for abdominal pain. She has been ruled out for myocardial infarction and she continues to complain of pain in the abdomen and chest. Past Medical History Cardiac Medical History: Reports: Congestive Heart Failure - Chronic systolic and diastolic heart failure, Coronary Artery Disease, Myocardial Infarction - STENTS/DEFIBRILLATOR/PACEMAKER, Hypertension, Pulmonary Embolism Pulmonary Medical History: Reports: Chronic Obstructive Pulmonary Disease (COPD), Pneumonia Denies: Asthma, Bronchitis, Tuberculosis Neurological Medical History: Denies: Seizures Endocrine Medical History: Reports: Diabetes Mellitus Type 2 - non compliant (pt has snacks in her suitcase etc) GI Medical History: Reports: Gastroesophageal Reflux Disease Musculoskeltal Medical History: Denies: Arthritis Psychiatric Medical History: Reports: Depression Hematology: Reports: Anemia Past Surgical History Past Surgical History: Reports: Cardiac Catheterization - stent x1, Coronary Stent, Internal Defibrillator, Pacemaker - AICD Denies: Hysterectomy Social History Smoking Status: Never Smoker Frequency of Alcohol Use: None Hx Recreational Drug Use: No Drugs: None Hx Prescription Drug Abuse: No - Advance Directive Resuscitation Status: Full Code Family History Family History: None, Reviewed & Not Pertinent, Hypertension Parental Family History Reviewed: No Children Family History Reviewed: NA Sibling(s) Family History Reviewed.: NA Medication/Allergy Home Medications: Bumetanide [Bumex 1 mg Tablet] 3 mg PO 0600 #90 tablet 07/28/18 Doxepin HCl [Silenor] 6 mg PO QHS #30 tablet 07/28/18 Calcitriol [Rocaltrol 0.25 mcg Capsule] 0.25 mcg PO DAILY 05/17/19 Ergocalciferol (Vitamin D2) [Drisdol 50,000 Unit (1.25MG) Capsule] 50,000 unit PO MO@1000 05/17/19 Ferrous Sulfate [Feosol 325 mg Tablet] 325 mg PO DAILY 05/17/19 Furosemide [Lasix 80 mg Tablet] 80 mg PO Q8 05/17/19 Pantoprazole Sodium [Protonix [address] Tablet] 40 mg PO QAM 05/17/19 Atorvastatin Calcium [Lipitor 80 mg Tablet] 80 mg PO QHS 05/18/19 Carvedilol [Coreg 12.5 mg Tablet] 12.5 mg PO Q12 05/18/19 Isosorbide Mononitrate [Imdur 30 mg Tablet.er] 30 mg PO DAILY@0600,1200,1800 05/18/19 Sacubitril/Valsartan [Entresto 97 mg/103 mg Tablet] 1 tab PO Q12 05/18/19 Warfarin Sodium [Coumadin 5 mg Tablet] 5 mg PO DAILY 05/18/19 Warfarin Sodium [Coumadin 7.5 mg Tablet] 7.5 mg PO TUTH@1000 05/18/19 Allergies/Adverse Reactions: hydrocodone bitartrate [From Vicodin] Allergy (Verified 07/27/18 11:36) Hives hydromorphone HCl [From Dilaudid] Allergy (Verified 05/16/19 14:28) Hives levofloxacin [From Levaquin] Allergy (Verified 07/27/18 11:36) Hives oxycodone HCl [From Percocet] Allergy (Verified 07/27/18 11:36) Hives tramadol [Tramadol] Allergy (Verified 07/27/18 11:36) Hives Review of Systems All systems: reviewed and no additional remarkable complaints except as stated Physical Exam Vital Signs: Temp Pulse Resp BP Pulse Ox 97.8 F 73 16 110/77 99 05/20/19 10:50 05/20/19 14:00 05/20/19 10:50 05/20/19 10:50 05/20/19 10:50 Intake & Output 05/19/19 05/20/19 05/21/19 06:59 06:59 06:59 Intake Total 1260 1460 200 Output Total 1725 100 Balance 1260 -265 100 Weight 108 kg Exam: General: Patient is alert and looks well. HEENT: There is no pallor or jaundice. PERRLA. Oropharynx normal Respiratory: No chest deformity. No respiratory distress. Chest wall palpitation was unremarkable. Breath sounds were normal Cardiovascular: Heart sounds 1 and 2 normal with no murmurs. Abdominal: Not distended. Soft and nontender. Liver and spleen not palpable. No ascites demonstrated. Bowel sounds active. Rectal examination was deferred. Extremities: No edema Neurological: Alert and oriented x4. Grossly nonfocal. Normal speech Skin: No significant rash Psychological: Normal affect Results Laboratory Results: 05/17/19 17:48 05/17/19 19:40 05/17/19 05/18/19 05/18/19 17:48 01:36 05:08 CK-MB (CK-2) 4.07 4.14 Troponin I 0.041 0.048 0.053 NT-Pro-B Natriuret Pep [id number] H 05/18/19 12:38 CK-MB (CK-2) 4.57 H Troponin I 0.044 NT-Pro-B Natriuret Pep Impressions: Chest X-Ray 05/17/19 17:52 IMPRESSION: CARDIAC ENLARGEMENT. VASCULAR CONGESTION. Assessment & Plan - Diagnosis (1) Abdominal pain Is this a current diagnosis for this admission?: Yes Plan: The plan was to perform an EGD and colonoscopy while in the hospital. Apparently patient did not drink her bowel prep and she has also been drinking liquids even though she was supposed to be n.p.o. for her EGD and colonoscopy. Her procedures were canceled and will be attempted as outpatient. I suspect her pain is functional in nature (2) Chest pain Qualifiers: Chest pain type: unspecified Qualified Code(s): R07.9 - Chest pain, unspecified Is this a current diagnosis for this admission?: Yes (3) Chronic pain syndrome Is this a current diagnosis for this admission?: Yes
[2019-05-20] MEDS: ATORVASTATIN CALCIUM 80 MG TABLET PO SCH (22:00)
[2019-05-20] MEDS: MORPHINE SULFATE 10 MG/ML INJ IV PRN (22:07)
[2019-05-20] MEDS: DIPHENHYDRAMINE HCL 50 MG/ML VIAL IV PRN (22:09)
[2019-05-21] MEDS: DIPHENHYDRAMINE HCL 50 MG/ML VIAL IV PRN ×2 (02:39→22:39)
[2019-05-21] MEDS: FUROSEMIDE 80 MG TABLET PO SCH ×3 (06:36→14:25)
[2019-05-21] MEDS: HEPARIN SOD (PORCINE) 5,000 UNIT/ML 1 ML VIAL SUBCUT SCH ×3 (06:38→22:19)
[2019-05-21] MEDS: BUMETANIDE 1 MG TABLET PO SCH (06:52)
[2019-05-21] MEDS: ISOSORBIDE MONONITRATE 30 MG TAB.ER.24H PO SCH ×3 (06:53→18:48)
[2019-05-21] MEDS: CARVEDILOL 12.5 MG TABLET PO SCH ×2 (06:53→18:47)
[2019-05-21 07:17] LABS: PROTHROMBIN TIME 15.3 SEC (11.4-15.4)
[2019-05-21] MEDS: ASPIRIN 81 MG TABLET, ENT COATED PO SCH (10:16)
[2019-05-21] MEDS: CALCITRIOL 0.25 MCG CAPSULE PO SCH (10:16)
[2019-05-21] MEDS: SACUBITRIL/VALSARTAN 97 MG/103 MG TABLET PO SCH ×2 (10:16→22:19)
[2019-05-21] MEDS: PANTOPRAZOLE SODIUM 40 MG TABLET.DR PO SCH (10:16)
[2019-05-21] MEDS ORDERED: DEXTROSE 50%-WATER SYRINGE 25 GM/50 ML DOSE IV PRN (13:30)
[2019-05-21] MEDS ORDERED: DEXTROSE 50%-WATER SYRINGE 12.5 GM/25 ML DOSE IV PRN (13:30)
[2019-05-21] MEDS ORDERED: DEXTROSE 40% GEL 15 GM TUBE X 2 PO PRN (13:30)
[2019-05-21] MEDS ORDERED: DEXTROSE 40% GEL 15 GM TUBE PO PRN (13:30)
[2019-05-21] MEDS ORDERED: GLUCAGON,HUMAN RECOMB 1 MG INJ IM PRN (13:30)
[2019-05-21 13:46] LABS: ABSOLUTE EOSINOPHILS # (AUTO) 0.1 10^3/uL (0.0-0.6); ABSOLUTE LYMPHOCYTES (AUTO) 0.5 10^3/uL (0.5-4.7); ABSOLUTE MONOCYTES (AUTO) 0.4 10^3/uL (0.1-1.4); ABSOLUTE NEUT (AUTO) 2.7 10^3/uL (1.7-8.2); BASOPHILS % (AUTO) 0.7 % (0-2); EOSINOPHILS % (AUTO) 3.4 % (0-6); HEMATOCRIT 36.8 % (36.0-47.0); HEMOGLOBIN 11.5 g/dL (12.0-15.5); LYMPHOCYTES % (AUTO) 13.2 % (13-45); MEAN CORPUSCULAR HEMOGLOBIN 23.5 pg (27.0-33.4); MEAN CORPUSCULAR HGB CONC 31.1 g/dL (32.0-36.0); MEAN CORPUSCULAR VOLUME 76 fl (80-97); MONOCYTES % (AUTO) 11.2 % (3-13); PLATELET COUNT 250 10^3/uL (150-450); RED BLOOD COUNT 4.87 10^6/uL (3.72-5.28); RED CELL DISTRIBUTION WIDTH 26.4 % (11.5-14.0); SEGMENTED NEUTROPHILS % (AUTO) 71.5 % (42-78); TOTAL CELLS COUNTED % (AUTO) 100 %; WHITE BLOOD COUNT 3.8 10^3/uL (4.0-10.5)
[2019-05-21 13:48] LABS: ANION GAP 7 (5-19); BLOOD UREA NITROGEN 37 mg/dL (7-20); CALCIUM 8.2 mg/dL (8.4-10.2); CARBON DIOXIDE 25 mmol/L (22-30); CHLORIDE 107 mmol/L (98-107); GLUCOSE 120 mg/dL (75-110); POTASSIUM 3.7 mmol/L (3.6-5.0)
[2019-05-21 14:20] LABS: ANISOCYTOSIS 3+; HYPOCHROMASIA 1+; POIKILOCYTOSIS 1+; POLYCHROMASIA 1+
[2019-05-21 14:21] LABS: OVALOCYTES 1+; PLATELET COMMENT ADEQUATE
--- NOTE | 2019-05-21 16:19 | PDOC PROGRESS REPORT ---
Subjective Progress Note for:: 05/21/19 Subjective:: Patient was admitted initially for observation for evaluation of chest pain, she was supposed to have EGD and colonoscopy yesterday but this was not done because patient did not follow instruction for GI prep, she was supposed to be discharged home this morning, she complained of increased shortness of breath, orthopnea, she has a history of chronic systolic and diastolic heart failure, the echo done on this admission demonstrated ejection fraction of less than 15%, there is severe global hypokinesis of the left ventricle the right ventricle is dilated she is known to have history of pulmonary embolism. She has four- chamber dilatation. Patient started to be changed to inpatient, will be optimized the CHF with diuretic intravenously, she is presently on p.o. furosemide, it is probably not well absorbed because of the CHF due to GI tract edema. She also complained of urinary symptoms dysuria and frequency Reason For Visit: CHF EXACERBATION Physical Exam Vital Signs: Temp Pulse Resp BP Pulse Ox 97.4 F 69 16 121/85 100 05/21/19 11:04 05/21/19 11:04 05/21/19 11:04 05/21/19 11:04 05/21/19 11:04 Intake & Output 05/20/19 05/21/19 05/22/19 06:59 06:59 06:59 Intake Total 1460 550 Output Total 1725 100 Balance -265 450 Weight 108.2 kg 107.5 kg General appearance: PRESENT: mild distress Eye exam: PRESENT: PERRLA Respiratory exam: PRESENT: clear to auscultation abdi Cardiovascular exam: PRESENT: irregular rhythm, +S1, +S2 GI/Abdominal exam: PRESENT: soft Neurological exam: PRESENT: alert Results Laboratory Results: 05/21/19 12:59 05/21/19 12:59 05/21/19 05/21/19 12:59 12:59 WBC 3.8 L RBC 4.87 Hgb 11.5 L Hct 36.8 MCV 76 L MCH 23.5 L MCHC 31.1 L RDW 26.4 H Plt Count 250 Seg Neutrophils % 71.5 Sodium 138.6 Potassium 3.7 Chloride 107 Carbon Dioxide 25 Anion Gap 7 BUN 37 H Creatinine 2.09 H Est GFR ( Amer) 31 L Glucose 120 H Calcium 8.2 L 05/17/19 05/18/19 05/18/19 17:48 01:36 05:08 CK-MB (CK-2) 4.07 4.14 Troponin I 0.041 0.048 0.053 NT-Pro-B Natriuret Pep [id number] H 05/18/19 12:38 CK-MB (CK-2) 4.57 H Troponin I 0.044 NT-Pro-B Natriuret Pep Impressions: Chest X-Ray 05/17/19 17:52 IMPRESSION: CARDIAC ENLARGEMENT. VASCULAR CONGESTION. Assessment & Plan - Diagnosis (1) Chest pain Qualifiers: Chest pain type: unspecified Qualified Code(s): R07.9 - Chest pain, unspecified Is this a current diagnosis for this admission?: Yes (2) Chronic combined systolic (congestive) and diastolic (congestive) heart failure Is this a current diagnosis for this admission?: Yes (3) Focal segmental glomerulosclerosis Is this a current diagnosis for this admission?: Yes (4) Focal segmental glomerulosclerosis Is this a current diagnosis for this admission?: Yes (5) Chronic pain syndrome Is this a current diagnosis for this admission?: Yes (6) Acute systolic heart failure Is this a current diagnosis for this admission?: Yes Plan: She has acute decompensation of chronic systolic and diastolic heart failure, start Lasix infusion DC p.o. furosemide (7) Urinary tract infection Qualifiers: Urinary tract infection type: site unspecified Hematuria presence: without hematuria Qualified Code(s): N39.0 - Urinary tract infection, site not specified Is this a current diagnosis for this admission?: Yes Plan: , UA, urine culture,
[2019-05-21] MEDS: INSULIN LISPRO 100 UNIT/ML 3 ML VIAL SUBCUT SCH ×2 (17:15→22:19)
[2019-05-21] MEDS ORDERED: FUROSEMIDE INJ/PF 100 MG/10 ML SDV ONE ×2 (18:29→18:57)
[2019-05-21] MEDS: NITROFURANTOIN MONOHYD/M-CRYST 100 MG CAPSULE PO SCH (18:47)
[2019-05-21] MEDS: NORMAL SALINE 250 ML with FUROSEMIDE 250 MG IV PRN ×2 (18:47)
[2019-05-21 20:20] LABS: APPEARANCE,URINE CLEAR; BILIRUBIN,URINE NEGATIVE (NEGATIVE); COLOR,URINE YELLOW; GLUCOSE, URINE NEGATIVE (NEGATIVE); KETONES,URINE NEGATIVE (NEGATIVE); LEUKOCYTE ESTERASE,URINE NEGATIVE (NEGATIVE); NITRITE,URINE NEGATIVE (NEGATIVE); PROTEIN,URINE NEGATIVE (NEGATIVE); URINE SPECIFIC GRAVITY 1.008; UROBILINOGEN,URINE NEGATIVE mg/dL (<2.0)
[2019-05-21] MEDS ORDERED: WARFARIN SODIUM 5 MG TABLET PO SCH (22:00)
[2019-05-21] MEDS ORDERED: (PENDING PHARMACY ID) (Doxepin Hcl [Silenor] 6 MG) PO SCH (22:00)
[2019-05-21] MEDS: ATORVASTATIN CALCIUM 80 MG TABLET PO SCH (22:19)
[2019-05-21] MEDS: WARFARIN SODIUM 5 MG TABLET PO SCH (22:19)
[2019-05-21] MEDS: MORPHINE SULFATE 10 MG/ML INJ IV PRN (22:37)
[2019-05-22 05:18] LABS: INTERNATIONAL RATION (INR) 1.04; PROTHROMBIN TIME 13.6 SEC (11.4-15.4)
[2019-05-22 05:24] LABS: HEMATOCRIT 37.1 % (36.0-47.0); HEMOGLOBIN 11.3 g/dL (12.0-15.5); MEAN CORPUSCULAR HGB CONC 30.4 g/dL (32.0-36.0); MEAN CORPUSCULAR VOLUME 76 fl (80-97); PLATELET COUNT 251 10^3/uL (150-450); RED BLOOD COUNT 4.91 10^6/uL (3.72-5.28); RED CELL DISTRIBUTION WIDTH 25.5 % (11.5-14.0); WHITE BLOOD COUNT 3.4 10^3/uL (4.0-10.5)
[2019-05-22] MEDS: HEPARIN SOD (PORCINE) 5,000 UNIT/ML 1 ML VIAL SUBCUT SCH ×3 (06:30→21:35)
[2019-05-22] MEDS: ISOSORBIDE MONONITRATE 30 MG TAB.ER.24H PO SCH ×3 (06:30→18:06)
[2019-05-22] MEDS: CARVEDILOL 12.5 MG TABLET PO SCH ×2 (06:30→18:06)
[2019-05-22] MEDS: INSULIN LISPRO 100 UNIT/ML 3 ML VIAL SUBCUT SCH ×2 (09:16→14:18)
[2019-05-22] MEDS: NITROFURANTOIN MONOHYD/M-CRYST 100 MG CAPSULE PO SCH ×2 (09:23→18:06)
[2019-05-22] MEDS: CALCITRIOL 0.25 MCG CAPSULE PO SCH (09:23)
[2019-05-22] MEDS: SACUBITRIL/VALSARTAN 97 MG/103 MG TABLET PO SCH ×2 (09:23→21:35)
[2019-05-22] MEDS: PANTOPRAZOLE SODIUM 40 MG TABLET.DR PO SCH (09:23)
--- NOTE | 2019-05-22 13:45 | PDOC PROGRESS REPORT ---
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, FSGN nephrotic syndrome Reason For Visit: CHF EXACERBATION Physical Exam Vital Signs: Temp Pulse Resp BP Pulse Ox 97.4 F 74 18 126/86 H 100 05/22/19 07:56 05/22/19 07:56 05/22/19 07:56 05/22/19 07:56 05/22/19 07:56 Intake & Output 05/21/19 05/22/19 05/23/19 06:59 06:59 06:59 Intake Total 550 1265 Output Total 100 1275 Balance 450 -10 Weight 107.5 kg 106.5 kg General appearance: PRESENT: no acute distress Eye exam: PRESENT: PERRLA Respiratory exam: PRESENT: clear to auscultation abdi Cardiovascular exam: PRESENT: +S1, +S2 GI/Abdominal exam: PRESENT: soft Neurological exam: PRESENT: alert Results Laboratory Results: 05/22/19 03:54 05/21/19 12:59 05/21/19 05/21/19 05/21/19 12:59 12:59 19:55 WBC 3.8 L RBC 4.87 Hgb 11.5 L Hct 36.8 MCV 76 L MCH 23.5 L MCHC 31.1 L RDW 26.4 H Plt Count 250 Seg Neutrophils % 71.5 Sodium 138.6 Potassium 3.7 Chloride 107 Carbon Dioxide 25 Anion Gap 7 BUN 37 H Creatinine 2.09 H Est GFR ( Amer) 31 L Glucose 120 H Calcium 8.2 L Urine Color YELLOW Urine Appearance CLEAR Urine pH 6.0 Ur Specific [place] 1.008 Urine Protein NEGATIVE Urine Glucose (UA) NEGATIVE Urine Ketones NEGATIVE Urine Blood SMALL H Urine Nitrite NEGATIVE Ur Leukocyte Esterase NEGATIVE Urine WBC (Auto) 0 Urine RBC (Auto) 1 05/22/19 03:54 WBC 3.4 L RBC 4.91 Hgb 11.3 L Hct 37.1 MCV 76 L MCH 23.0 L MCHC 30.4 L RDW 25.5 H Plt Count 251 Seg Neutrophils % Sodium Potassium Chloride Carbon Dioxide Anion Gap BUN Creatinine Est GFR ( Amer) Glucose Calcium Urine Color Urine Appearance Urine pH Ur Specific [place] Urine Protein Urine Glucose (UA) Urine Ketones Urine Blood Urine Nitrite Ur Leukocyte Esterase Urine WBC (Auto) Urine RBC (Auto) 05/17/19 05/18/19 05/18/19 17:48 01:36 05:08 CK-MB (CK-2) 4.07 4.14 Troponin I 0.041 0.048 0.053 NT-Pro-B Natriuret Pep 87534 H 05/18/19 12:38 CK-MB (CK-2) 4.57 H Troponin I 0.044 NT-Pro-B Natriuret Pep Impressions: Chest X-Ray 05/17/19 17:52 IMPRESSION: CARDIAC ENLARGEMENT. VASCULAR CONGESTION. Assessment & Plan - Diagnosis (1) Acute systolic heart failure Is this a current diagnosis for this admission?: Yes Plan: Continue present line of management (2) Chest pain Qualifiers: Chest pain type: unspecified Qualified Code(s): R07.9 - Chest pain, unspecified Is this a current diagnosis for this admission?: Yes (3) Chronic combined systolic (congestive) and diastolic (congestive) heart failure Is this a current diagnosis for this admission?: Yes (4) Focal segmental glomerulosclerosis Is this a current diagnosis for this admission?: Yes (5) Focal segmental glomerulosclerosis Is this a current diagnosis for this admission?: Yes (6) Chronic pain syndrome Is this a current diagnosis for this admission?: Yes (7) Urinary tract infection Qualifiers: Urinary tract infection type: site unspecified Hematuria presence: without hematuria Qualified Code(s): N39.0 - Urinary tract infection, site not specif ied Is this a current diagnosis for this admission?: Yes
[2019-05-22] MEDS: NORMAL SALINE 250 ML with FUROSEMIDE 250 MG IV PRN ×2 (18:06)
[2019-05-22] MEDS: PHARMACY COMMUNICATION ORDER MC SCH (18:51)
[2019-05-22] MEDS: WARFARIN SODIUM 5 MG TABLET PO SCH (21:35)
[2019-05-22] MEDS: ATORVASTATIN CALCIUM 80 MG TABLET PO SCH (21:35)
[2019-05-22] MEDS: DIPHENHYDRAMINE HCL 50 MG/ML VIAL IV PRN (21:45)
[2019-05-22] MEDS: MORPHINE SULFATE 10 MG/ML INJ IV PRN (21:45)
[2019-05-23] MEDS: DIPHENHYDRAMINE HCL 50 MG/ML VIAL IV PRN ×3 (01:42→22:30)
[2019-05-23 05:25] LABS: INTERNATIONAL RATION (INR) 1.22; PROTHROMBIN TIME 15.4 SEC (11.4-15.4)
[2019-05-23] MEDS: CARVEDILOL 12.5 MG TABLET PO SCH ×2 (05:43→18:05)
[2019-05-23] MEDS: HEPARIN SOD (PORCINE) 5,000 UNIT/ML 1 ML VIAL SUBCUT SCH ×2 (05:43→13:22)
[2019-05-23] MEDS: ISOSORBIDE MONONITRATE 30 MG TAB.ER.24H PO SCH ×3 (06:04→18:08)
[2019-05-23] MEDS ORDERED: ERGOCALCIFEROL (VITAMIN D2) 50000 UNIT (1.25 MG) CAPSULE PO SCH (10:00)
[2019-05-23] MEDS: CALCITRIOL 0.25 MCG CAPSULE PO SCH (10:02)
[2019-05-23] MEDS: NITROFURANTOIN MONOHYD/M-CRYST 100 MG CAPSULE PO SCH ×2 (10:02→18:05)
[2019-05-23] MEDS: SACUBITRIL/VALSARTAN 97 MG/103 MG TABLET PO SCH ×2 (10:02→22:25)
[2019-05-23] MEDS: PANTOPRAZOLE SODIUM 40 MG TABLET.DR PO SCH (10:02)
[2019-05-23 11:28] LABS: APPEARANCE,URINE CLEAR; BILIRUBIN,URINE NEGATIVE (NEGATIVE); COLOR,URINE YELLOW; GLUCOSE, URINE NEGATIVE (NEGATIVE); KETONES,URINE NEGATIVE (NEGATIVE); LEUKOCYTE ESTERASE,URINE NEGATIVE (NEGATIVE); NITRITE,URINE NEGATIVE (NEGATIVE); PROTEIN,URINE NEGATIVE (NEGATIVE); UROBILINOGEN,URINE NEGATIVE mg/dL (<2.0)
[2019-05-23 11:56] LABS: ALBUMIN 2.4 g/dL (3.5-5.0); ALKALINE PHOSPHATASE 123 U/L (38-126); ANION GAP 5 (5-19); ASPARTATE AMINO TRANSFERASE 21 U/L (14-36); BILIRUBIN,DIRECT 0.3 mg/dL (0.0-0.4); BILIRUBIN,TOTAL 0.5 mg/dL (0.2-1.3); BLOOD UREA NITROGEN 40 mg/dL (7-20); CALCIUM 7.9 mg/dL (8.4-10.2); CARBON DIOXIDE 26 mmol/L (22-30); CHLORIDE 107 mmol/L (98-107); GLUCOSE 109 mg/dL (75-110); POTASSIUM 3.6 mmol/L (3.6-5.0); TOTAL PROTEIN 4.7 g/dL (6.3-8.2)
[2019-05-23] MEDS: PHARMACY COMMUNICATION ORDER MC SCH (18:05)
[2019-05-23] MEDS: NORMAL SALINE 250 ML with FUROSEMIDE 250 MG IV PRN ×2 (18:05)
[2019-05-23] MEDS: SIMETHICONE 80 MG TAB.CHEW PO PRN ×2 (18:08→23:19)
--- NOTE | 2019-05-23 19:56 | PDOC PROGRESS REPORT ---
Subjective Progress Note for:: 05/23/19 Subjective:: Patient was seen by the bedside, yesterday she was started on intravenous furosemide infusion, she is diuresing very well, she has less shortness of breath, she has underlining chronic systolic and diastolic heart failure, FSGN nephrotic syndrome Reason For Visit: CHF EXACERBATION Physical Exam Vital Signs: Temp Pulse Resp BP Pulse Ox 98.3 F 72 18 119/72 100 05/23/19 16:45 05/23/19 16:45 05/23/19 16:45 05/23/19 16:45 05/23/19 16:45 Intake & Output 05/22/19 05/23/19 05/24/19 06:59 06:59 06:59 Intake Total 1265 1584 520 Output Total 1275 1875 500 Balance -10 -291 20 Weight 106.5 kg 107.4 kg General appearance: PRESENT: no acute distress Eye exam: PRESENT: PERRLA Respiratory exam: PRESENT: clear to auscultation abdi Cardiovascular exam: PRESENT: +S1, +S2 GI/Abdominal exam: PRESENT: soft Neurological exam: PRESENT: alert Results Laboratory Results: 05/22/19 03:54 05/23/19 05:00 05/23/19 05/23/19 05:00 10:09 Sodium 138.1 Potassium 3.6 Chloride 107 Carbon Dioxide 26 Anion Gap 5 BUN 40 H Creatinine 2.28 H Est GFR ( Amer) 28 L Glucose 109 Calcium 7.9 L Total Bilirubin 0.5 AST 21 Alkaline Phosphatase 123 Total Protein 4.7 L Albumin 2.4 L Urine Color YELLOW Urine Appearance CLEAR Urine pH 6.0 Ur Specific [place] 1.010 Urine Protein NEGATIVE Urine Glucose (UA) NEGATIVE Urine Ketones NEGATIVE Urine Blood MODERATE H Urine Nitrite NEGATIVE Ur Leukocyte Esterase NEGATIVE Urine WBC (Auto) 0 Urine RBC (Auto) 2 05/21/19 19:55 Clean Catch Midstream Urine Culture - Final NO GROWTH 2 DAYS 05/17/19 05/18/19 05/18/19 17:48 01:36 05:08 CK-MB (CK-2) 4.07 4.14 Troponin I 0.041 0.048 0.053 NT-Pro-B Natriuret Pep [id number] H 05/18/19 12:38 CK-MB (CK-2) 4.57 H Troponin I 0.044 NT-Pro-B Natriuret Pep Impressions: Chest X-Ray 05/17/19 17:52 IMPRESSION: CARDIAC ENLARGEMENT. VASCULAR CONGESTION. Assessment & Plan - Diagnosis (1) Acute systolic heart failure Is this a current diagnosis for this admission?: Yes Plan: Continue present line of management (2) Chest pain Qualifiers: Chest pain type: unspecified Qualified Code(s): R07.9 - Chest pain, unspecified Is this a current diagnosis for this admission?: Yes (3) Chronic combined systolic (congestive) and diastolic (congestive) heart failure Is this a current diagnosis for this admission?: Yes (4) Focal segmental glomerulosclerosis Is this a current diagnosis for this admission?: Yes (5) Focal segmental glomerulosclerosis Is this a current diagnosis for this admission?: Yes (6) Chronic pain syndrome Is this a current diagnosis for this admission?: Yes (7) Urinary tract infection Qualifiers: Urinary tract infection type: site unspecified Hematuria presence: without hematuria Qualified Code(s): N39.0 - Urinary tract infection, site not specified Is this a current diagnosis for this admission?: Yes (8) Epigastric pain Is this a current diagnosis for this admission?: Yes Plan: Obtain upper GI series
[2019-05-23] MEDS: WARFARIN SODIUM 5 MG TABLET PO SCH (22:25)
[2019-05-23] MEDS: ATORVASTATIN CALCIUM 80 MG TABLET PO SCH (22:25)
[2019-05-23] MEDS: MORPHINE SULFATE 10 MG/ML INJ IV PRN (22:30)
[2019-05-24] MEDS: MORPHINE SULFATE 10 MG/ML INJ IV PRN (03:58)
[2019-05-24] MEDS: SIMETHICONE 80 MG TAB.CHEW PO PRN ×2 (03:58→19:38)
[2019-05-24] MEDS: DIPHENHYDRAMINE HCL 50 MG/ML VIAL IV PRN (03:58)
[2019-05-24 05:50] LABS: PROTHROMBIN TIME 17.3 SEC (11.4-15.4)
[2019-05-24] MEDS: ISOSORBIDE MONONITRATE 30 MG TAB.ER.24H PO SCH ×3 (06:20→17:03)
[2019-05-24] MEDS: PANTOPRAZOLE SODIUM 40 MG TABLET.DR PO SCH (07:29)
[2019-05-24 08:46] LABS: ALBUMIN 2.2 g/dL (3.5-5.0); ALKALINE PHOSPHATASE 113 U/L (38-126); ANION GAP 8 (5-19); ASPARTATE AMINO TRANSFERASE 20 U/L (14-36); BILIRUBIN,DIRECT 0.4 mg/dL (0.0-0.4); BILIRUBIN,TOTAL 0.7 mg/dL (0.2-1.3); BLOOD UREA NITROGEN 41 mg/dL (7-20); CALCIUM 8.3 mg/dL (8.4-10.2); CARBON DIOXIDE 23 mmol/L (22-30); CHLORIDE 107 mmol/L (98-107); GLUCOSE 114 mg/dL (75-110); POTASSIUM 3.8 mmol/L (3.6-5.0); TOTAL PROTEIN 4.5 g/dL (6.3-8.2)
[2019-05-24] MEDS: CARVEDILOL 12.5 MG TABLET PO SCH ×2 (09:00→17:03)
[2019-05-24] MEDS: CALCITRIOL 0.25 MCG CAPSULE PO SCH (09:00)
[2019-05-24] MEDS: NITROFURANTOIN MONOHYD/M-CRYST 100 MG CAPSULE PO SCH ×2 (09:00→17:03)
[2019-05-24] MEDS: SACUBITRIL/VALSARTAN 97 MG/103 MG TABLET PO SCH (09:00)
--- NOTE | 2019-05-24 09:39 | XCELERA REPORT ---
[address] [facility] [address] Lower Extremity Venous Evaluation Procedure: Color flow and duplex imaging bilaterally of the veins of the lower extremities as well as the Common Femoral veins. Right Sided Venous Evaluation Normal vessel filling wall to wall, compression and augmentation as well as Colour flow down to the infrageniculate veins. Left Sided Venous Evaluation Normal vessel filling wall to wall, compression and augmentation as well as Colour flow down to the infrageniculate veins. Interpretation Summary No duplex evidence of DVT or obstruction in the bilateral lower extremities. Name: BERONICA YEUNG Age: 44 yrs Gender: Female : 1975 Patient Status: Inpatient Patient Location: [address] [place] [address] Study Date: 05/23/2019 03:05 PM Reason For Study: chf exacerbation Ordering Physician: VU GUZMAN Performed By: Yesenia Manzano : VU GUZMAN > [employer]
[2019-05-24] MEDS ORDERED: WARFARIN SODIUM 7.5 MG TABLET PO SCH ×2 (10:00→22:00)
--- NOTE | 2019-05-24 14:28 | RADIOLOGY REPORT (SQ) ---
EXAM DESCRIPTION: UGI SERIES COMPLETED DATE/TIME: 05/24/2019 10:19 am REASON FOR STUDY: Chest discomfort, ABD PAIN, NAUSEA Z79.01 HALF-WAY (CURRENT) USE OF ANTICOAGULAN TS N39.0 URINARY TRACT INFECTION, SITE NOT SPECIFIED COMPARISON: None. TECHNIQUE: Under fluoroscopic guidance, patient ingested effervescent granules followed by thick and thin barium. Fluoroscopic spot images and routine radiographic images acquired and stored on PACS. 12 MM BARIUM TABLET GIVEN: Yes. LIMITATIONS: None. FLUOROSCOPY TIME: FLUORO TIME: 4.1 minutes 19 images saved to PACS. FINDINGS: NEUROMUSCULAR COORDINATION OF SWALLOW: Normal. No aspiration. ESOPHAGEAL MOTILITY: Normal peristalsis. No esophageal spasm. ESOPHAGEAL MUCOSA: Normal mucosa without masses or ulceration. GASTRO-ESOPHAGEAL JUNCTION: No hiatal hernia or reflux. STOMACH: Postsurgical changes from the gastric bypass. No delay of contrast traversing into the smal l bowel lumen. DUODENAL BULB: Postsurgical change from gastric bypass. Not imaged. PROXIMAL SMALL BOWEL: Mucosa normal. No extrinsic masses or malrotation. NON-GI TRACT STRUCTURES: Partially visualized left-sided cardiac pacer/ defibrillator. OTHER: Intrauterine device overlies pelvis. IMPRESSION: 1. Postsurgical changes from gastric bypass. Otherwise unremarkable upper GI series. COMMENT: Quality ID [id number]: Final reports for procedures using fluoroscopy that document radiation exp osure indices, or exposure time and number of fluorographic images (if radiation exposure indices are not available) TECHNICAL DOCUMENTATION: JOB ID: [id number] [employer]- All Rights Reserved Reading location - IP/workstation name: [email or web address]
--- NOTE | 2019-05-24 18:35 | PDOC PROGRESS REPORT ---
Subjective Progress Note for:: 05/24/19 Subjective:: Patient was seen by the bedside patient seen by the bedside, the upper GI series negative, ultrasound of the gallbladder is ordered Reason For Visit: CHF EXACERBATION Physical Exam Vital Signs: Temp Pulse Resp BP Pulse Ox 98.2 F 71 18 113/74 99 05/24/19 16:56 05/24/19 16:56 05/24/19 16:56 05/24/19 16:56 05/24/19 16:56 Intake & Output 05/23/19 05/24/19 05/25/19 06:59 06:59 06:59 Intake Total 1584 520 0 Output Total 1875 700 Balance -291 -180 0 Weight 107.4 kg 108.3 kg General appearance: PRESENT: no acute distress Eye exam: PRESENT: PERRLA Respiratory exam: PRESENT: clear to auscultation abdi Cardiovascular exam: PRESENT: +S1, +S2 GI/Abdominal exam: PRESENT: soft Neurological exam: PRESENT: alert Results Laboratory Results: 05/22/19 03:54 05/24/19 04:45 05/24/19 04:45 Sodium 137.9 Potassium 3.8 Chloride 107 Carbon Dioxide 23 Anion Gap 8 BUN 41 H Creatinine 2.14 H Est GFR ( Amer) 30 L Glucose 114 H Calcium 8.3 L Total Bilirubin 0.7 AST 20 Alkaline Phosphatase 113 Total Protein 4.5 L Albumin 2.2 L 05/17/19 05/18/19 05/18/19 17:48 01:36 05:08 CK-MB (CK-2) 4.07 4.14 Troponin I 0.041 0.048 0.053 NT-Pro-B Natriuret Pep 23994 H 05/18/19 12:38 CK-MB (CK-2) 4.57 H Troponin I 0.044 NT-Pro-B Natriuret Pep Impressions: Chest X-Ray 05/17/19 17:52 IMPRESSION: CARDIAC ENLARGEMENT. VASCULAR CONGESTION. Upper GI Series 05/24/19 00:00 IMPRESSION: 1. Postsurgical changes from gastric bypass. Otherwise unremarkable upper GI series. Assessment & Plan - Diagnosis (1) Acute systolic heart failure Is this a current diagnosis for this admission?: Yes Plan: DC Lasix drip (2) Chest pain Qualifiers: Chest pain type: unspecified Qualified Code(s): R07.9 - Chest pain, unspecified Is this a current diagnosis for this admission?: Yes (3) Chronic combined systolic (congestive) and diastolic (congestive) heart failure Is this a current diagnosis for this admission?: Yes (4) Focal segmental glomerulosclerosis Is this a current diagnosis for this admission?: Yes (5) Focal segmental glomerulosclerosis Is this a current diagnosis for this admission?: Yes (6) Chronic pain syndrome Is this a current diagnosis for this admission?: Yes (7) Urinary tract infection Qualifiers: Urinary tract infection type: site unspecified Hematuria presence: without hematuria Qualified Code(s): N39.0 - Urinary tract infection, site not specified Is this a current diagnosis for this admission?: Yes (8) Epigastric pain Is this a current diagnosis for this admission?: Yes
[2019-05-25] MEDS: DIPHENHYDRAMINE HCL 50 MG/ML VIAL IV PRN ×2 (00:03→04:16)
[2019-05-25] MEDS: WARFARIN SODIUM 5 MG TABLET PO SCH (00:03)
[2019-05-25] MEDS: FUROSEMIDE 80 MG TABLET PO SCH ×4 (00:03→22:16)
[2019-05-25] MEDS: ATORVASTATIN CALCIUM 80 MG TABLET PO SCH ×2 (00:03→22:16)
[2019-05-25] MEDS: MORPHINE SULFATE 10 MG/ML INJ IV PRN (00:03)
[2019-05-25] MEDS: SACUBITRIL/VALSARTAN 97 MG/103 MG TABLET PO SCH ×3 (00:07→22:16)
[2019-05-25] MEDS ORDERED: WARFARIN SODIUM 5 MG TABLET PO SCH ×3 (02:00→22:00)
[2019-05-25] MEDS: SIMETHICONE 80 MG TAB.CHEW PO PRN ×2 (04:16→22:16)
[2019-05-25] MEDS: BUMETANIDE 1 MG TABLET PO SCH (05:40)
[2019-05-25] MEDS: CARVEDILOL 12.5 MG TABLET PO SCH ×2 (05:40→17:14)
[2019-05-25] MEDS: ISOSORBIDE MONONITRATE 30 MG TAB.ER.24H PO SCH ×3 (05:40→17:14)
[2019-05-25 06:01] LABS: HEMATOCRIT 35.6 % (36.0-47.0); HEMOGLOBIN 11.2 g/dL (12.0-15.5); MEAN CORPUSCULAR HEMOGLOBIN 23.6 pg (27.0-33.4); MEAN CORPUSCULAR HGB CONC 31.5 g/dL (32.0-36.0); MEAN CORPUSCULAR VOLUME 75 fl (80-97); PLATELET COUNT 241 10^3/uL (150-450); RED BLOOD COUNT 4.75 10^6/uL (3.72-5.28); RED CELL DISTRIBUTION WIDTH 25.7 % (11.5-14.0)
[2019-05-25 06:03] LABS: PROTHROMBIN TIME 20.2 SEC (11.4-15.4)
--- NOTE | 2019-05-25 08:26 | RADIOLOGY REPORT (SQ) ---
EXAM DESCRIPTION: U/S ABDOMEN COMPLETE W/DOPPLER COMPLETED DATE/TIME: 05/25/2019 6:42 am REASON FOR STUDY: epigastric pain Z79.01 ALF (CURRENT) USE OF ANTICOAGULANTS N39.0 URINARY T RACT INFECTION, SITE NOT SPECIFIED COMPARISON: None. TECHNIQUE: Dynamic and static grayscale images acquired of the abdomen and recorded on PACS. Additio nal selected color Doppler and spectral images recorded. Note: Study does not meet criteria for complete doppler/duplex scan LIMITATIONS: None. FINDINGS: PANCREAS: Visualized portions the pancreas are unremarkable. LIVER: There is fatty infiltration of the liver. Mild hepatomegaly. Cranial caudal dimensions is me asured at 20.5 cm. LIVER VASCULATURE: Normal directional flow of the main portal vein and hepatic veins. GALLBLADDER: Small stones. Gallbladder wall is thickened measured 4.7 mm. ULTRASOUND-DETECTED WEBB'S SIGN: Negative. INTRAHEPATIC DUCTS AND COMMON DUCT: CBD and intrahepatic ducts normal caliber. No filling defects. INFERIOR VENA CAVA: Normal flow. AORTA: No aneurysm. RIGHT KIDNEY: The right kidney measured 8.9 cm in length. Echogenicity is increased. No solid or suspicious masses. No hydronephrosis. No calcifications. LEFT KIDNEY: The left kidney measures 10.3 cm in length. Echogenicity is increased. No solid or suspicious masses. No hydronephrosis. No calcifications. SPLEEN: Normal size. No solid masses. PERITONEAL AND PLEURAL SPACES: No ascites or effusions. OTHER: No other significant finding. IMPRESSION: 1. Echogenic kidneys suggestive of medical renal disease. 2. Mild hepatomegaly with fatty infiltration of liver. 3. Thickened gallbladder wall. Negative sonographic Webb sign. There are gallstones. TECHNICAL DOCUMENTATION: JOB ID: [id number]- All Rights Reserved Reading location - IP/workstation name: [email or web address]
[2019-05-25] MEDS ORDERED: WARFARIN SODIUM 2.5 MG TABLET PO ONE (09:00)
[2019-05-25] MEDS: PANTOPRAZOLE SODIUM 40 MG TABLET.DR PO SCH (09:17)
[2019-05-25] MEDS: CALCITRIOL 0.25 MCG CAPSULE PO SCH (09:17)
[2019-05-25] MEDS: NITROFURANTOIN MONOHYD/M-CRYST 100 MG CAPSULE PO SCH ×2 (09:18→17:14)
--- NOTE | 2019-05-25 15:56 | PDOC PROGRESS REPORT ---
Subjective Progress Note for:: 05/25/19 Subjective:: Patient seen by the bedside, the ultrasound of the gallbladder demonstrated thickened wall of the gallbladder with stone the result of the ultrasound was discussed with the patient I also spoke to the surgeon about the ultrasound results, she is a high risk for surgery but she also have symptomatic gallstone probably cholecystitis she will need cholecystectomy Reason For Visit: CHF EXACERBATION Physical Exam Vital Signs: Temp Pulse Resp BP Pulse Ox 98.8 F 77 16 115/82 100 05/25/19 11:40 05/25/19 14:00 05/25/19 11:40 05/25/19 11:40 05/25/19 11:40 Intake & Output 05/24/19 05/25/19 05/26/19 06:59 06:59 06:59 Intake Total 520 1094 Output Total 700 1000 Balance -180 94 Weight 108.3 kg 106 kg General appearance: PRESENT: no acute distress Eye exam: PRESENT: PERRLA Respiratory exam: PRESENT: clear to auscultation abdi Cardiovascular exam: PRESENT: +S1, +S2 GI/Abdominal exam: PRESENT: soft, tenderness Neurological exam: PRESENT: alert, CN II-XII grossly intact Results Laboratory Results: 05/25/19 04:56 05/24/19 04:45 05/25/19 04:56 WBC 4.0 RBC 4.75 Hgb 11.2 L Hct 35.6 L MCV 75 L MCH 23.6 L MCHC 31.5 L RDW 25.7 H Plt Count 241 05/17/19 05/18/19 05/18/19 17:48 01:36 05:08 CK-MB (CK-2) 4.07 4.14 Troponin I 0.041 0.048 0.053 NT-Pro-B Natriuret Pep [id number] H 05/18/19 12:38 CK-MB (CK-2) 4.57 H Troponin I 0.044 NT-Pro-B Natriuret Pep Impressions: Chest X-Ray 05/17/19 17:52 IMPRESSION: CARDIAC ENLARGEMENT. VASCULAR CONGESTION. Upper GI Series 05/24/19 00:00 IMPRESSION: 1. Postsurgical changes from gastric bypass. Otherwise unremarkable upper GI series. Abdomen Ultrasound 05/25/19 00:00 IMPRESSION: 1. Echogenic kidneys suggestive of medical renal disease. 2. Mild hepatomegaly with fatty infiltration of liver. 3. Thickened gallbladder wall. Negative sonographic Webb sign. There are gallstones. Assessment & Plan - Diagnosis (1) Acute systolic heart failure Is this a current diagnosis for this admission?: Yes (2) Chest pain Qualifiers: Chest pain type: unspecified Qualified Code(s): R07.9 - Chest pain, unspecified Is this a current diagnosis for this admission?: Yes (3) Chronic combined systolic (congestive) and diastolic (congestive) heart failure Is this a current diagnosis for this admission?: Yes (4) Focal segmental glomerulosclerosis Is this a current diagnosis for this admission?: Yes (5) Focal segmental glomerulosclerosis Is this a current diagnosis for this admission?: Yes (6) Chronic pain syndrome Is this a current diagnosis for this admission?: Yes (7) Urinary tract infection Qualifiers: Urinary tract infection type: site unspecified Hematuria presence: without hematuria Qualified Code(s): N39.0 - Urinary tract infection, site not specified Is this a current diagnosis for this admission?: Yes (8) Epigastric pain Is this a current diagnosis for this admission?: Yes (9) Cholelithiasis Qualifiers: Cholelithiasis location: gallbladder Cholecystitis presence: with cholecystitis Cholecystitis acuity: acute Biliary obstruction: without biliary obstruction Qualified Code(s): K80.00 - Calculus of gallbladder with acute cholecystitis without obstruction Is this a current diagnosis for this admission?: Yes Plan: Surgical consultation ordered
--- NOTE | 2019-05-25 23:32 | PDOC CONSULTATION ---
Consultation Consult Date: 05/25/19 Provider Consulted: SURGICAL SURGICALIST Consult reason:: abdominal pain History of Present Illness Admission Date/PCP: 05/21/19 16:11 VU GUZMAN MD History of Present Illness: BERONICA YEUNG is a 44 year old female with multiple medical problems including congestive heart failure, chronic renal insufficiency, diabetes, pulmonary embolism (on Coumadin), and morbid obesity (status post gastric bypass). Patient reports epigastric abdominal pain that is constant and severe. Nothing makes it better or worse. She is noncompliant with her gastric bypass diet. The patient ate earlier today without difficulty. She denies chest pain, shortness of breath, headache, fevers, chills, orthostasis, dizziness, blurry vision, melena, hematochezia, hematemesis. She does report nausea without vomiting. Past Medical History Cardiac Medical History: Reports: Congestive Heart Failure - Chronic systolic and diastolic heart failure, Coronary Artery Disease, Myocardial Infarction - STENTS/DEFIBRILLATOR/PACEMAKER, Hypertension, Pulmonary Embolism Pulmonary Medical History: Reports: Chronic Obstructive Pulmonary Disease (COPD), Pneumonia Denies: Asthma, Bronchitis, Tuberculosis Neurological Medical History: Denies: Seizures Endocrine Medical History: Reports: Diabetes Mellitus Type 2 - non compliant (pt has snacks in her suitcase etc) GI Medical History: Reports: Gastroesophageal Reflux Disease Musculoskeltal Medical History: Denies: Arthritis Psychiatric Medical History: Reports: Depression Hematology: Reports: Anemia Past Surgical History Past Surgical History: Reports: Cardiac Catheterization - stent x1, Coronary Stent, Internal Defibrillator, Pacemaker - AICD Denies: Hysterectomy Social History Smoking Status: Never Smoker Frequency of Alcohol Use: None Hx Recreational Drug Use: No Drugs: None Hx Prescription Drug Abuse: No - Advance Directive Resuscitation Status: Full Code Family History Family History: None, Reviewed & Not Pertinent, Hypertension Parental Family History Reviewed: Yes Children Family History Reviewed: Yes Sibling(s) Family History Reviewed.: Yes Medication/Allergy Home Medications: Bumetanide [Bumex 1 mg Tablet] 3 mg PO 0600 #90 tablet 07/28/18 Doxepin HCl [Silenor] 6 mg PO QHS #30 tablet 07/28/18 Calcitriol [Rocaltrol 0.25 mcg Capsule] 0.25 mcg PO DAILY 05/17/19 Ergocalciferol (Vitamin D2) [Drisdol 50,000 Unit (1.25MG) Capsule] 50,000 unit PO MO@1000 05/17/19 Ferrous Sulfate [Feosol 325 mg Tablet] 325 mg PO DAILY 05/17/19 Furosemide [Lasix 80 mg Tablet] 80 mg PO Q8 05/17/19 Pantoprazole Sodium [Protonix [address] Tablet] 40 mg PO QAM 05/17/19 Atorvastatin Calcium [Lipitor 80 mg Tablet] 80 mg PO QHS 05/18/19 Carvedilol [Coreg 12.5 mg Tablet] 12.5 mg PO Q12 05/18/19 Isosorbide Mononitrate [Imdur 30 mg Tablet.er] 30 mg PO DAILY@0600,1200,1800 05/18/19 Sacubitril/Valsartan [Entresto 97 mg/103 mg Tablet] 1 tab PO Q12 05/18/19 Warfarin Sodium [Coumadin 5 mg Tablet] 5 mg PO DAILY 05/18/19 Warfarin Sodium [Coumadin 7.5 mg Tablet] 7.5 mg PO TUTH@1000 05/18/19 Allergies/Adverse Reactions: hydrocodone bitartrate [From Vicodin] Allergy (Verified 07/27/18 11:36) Hives hydromorphone HCl [From Dilaudid] Allergy (Verified 05/16/19 14:28) Hives levofloxacin [From Levaquin] Allergy (Verified 07/27/18 11:36) Hives oxycodone HCl [From Percocet] Allergy (Verified 07/27/18 11:36) Hives tramadol [Tramadol] Allergy (Verified 07/27/18 11:36) Hives Review of Systems Constitutional: ABSENT: anorexia, chills, fatigue Eyes: ABSENT: visual disturbances Ears: ABSENT: hearing changes Nose, Mouth, and Throat: ABSENT: mouth pain, sore throat Cardiovascular: ABSENT: chest pain Respiratory: ABSENT: cough Gastrointestinal: PRESENT: abdominal pain, nausea. ABSENT: hematemesis, hematochezia, melena, vomiting Genitourinary: ABSENT: difficulty urinating Musculoskeletal: PRESENT: back pain Integumentary: ABSENT: pruritus, rash Neurological: ABSENT: confusion, convulsions, dizziness Psychiatric: ABSENT: anxiety, depression Endocrine: PRESENT: cold intolerance. ABSENT: heat intolerance Hematologic/Lymphatic: PRESENT: easy bleeding, easy bruising Physical Exam Vital Signs: Temp Pulse Resp BP Pulse Ox 98.6 F 100 16 114/76 98 05/25/19 17:09 05/25/19 17:09 05/25/19 17:09 05/25/19 17:09 05/25/19 17:09 Intake & Output 05/24/19 05/25/19 05/26/19 06:59 06:59 06:59 Intake Total 520 1094 462 Output Total 700 1000 650 Balance -180 94 -188 Weight 108.3 kg 106 kg General appearance: PRESENT: no acute distress, obese Head exam: PRESENT: atraumatic, normocephalic Eye exam: PRESENT: EOMI, PERRLA. ABSENT: scleral icterus Mouth exam: PRESENT: moist, neck supple Neck exam: ABSENT: meningismus, tenderness, thyromegaly, tracheal deviation Respiratory exam: PRESENT: unlabored. ABSENT: tachypnea, wheezes Cardiovascular exam: PRESENT: RRR Pulses: PRESENT: normal radial pulses Vascular exam: PRESENT: normal capillary refill. ABSENT: pallor GI/Abdominal exam: PRESENT: soft, tenderness - Mild epigastric. ABSENT: distended, guarding, Webb's sign, rigid Rectal exam: PRESENT: deferred Extremities exam: ABSENT: clubbing Musculoskeletal exam: ABSENT: deformity Neurological exam: PRESENT: alert, awake, oriented to person, oriented to place, oriented to time, oriented to situation Psychiatric exam: ABSENT: agitated, anxious, depressed Focused psych exam: ABSENT: delusional Skin exam: ABSENT: cyanosis, erythema, jaundice Results Laboratory Results: 05/25/19 04:56 05/24/19 04:45 05/25/19 04:56 WBC 4.0 RBC 4.75 Hgb 11.2 L Hct 35.6 L MCV 75 L MCH 23.6 L MCHC 31.5 L RDW 25.7 H Plt Count 241 05/17/19 05/18/19 05/18/19 17:48 01:36 05:08 CK-MB (CK-2) 4.07 4.14 Troponin I 0.041 0.048 0.053 NT-Pro-B Natriuret Pep 32530 H 05/18/19 12:38 CK-MB (CK-2) 4.57 H Troponin I 0.044 NT-Pro-B Natriuret Pep Impressions: Chest X-Ray 05/17/19 17:52 IMPRESSION: CARDIAC ENLARGEMENT. VASCULAR CONGESTION. Upper GI Series 05/24/19 00:00 IMPRESSION: 1. Postsurgical changes from gastric bypass. Otherwise unremarkable upper GI series. Abdomen Ultrasound 05/25/19 00:00 IMPRESSION: 1. Echogenic kidneys suggestive of medical renal disease. 2. Mild hepatomegaly with fatty infiltration of liver. 3. Thickened gallbladder wall. Negative sonographic Webb sign. There are gallstones. Assessment & Plan - Diagnosis (1) Abdominal pain Qualifiers: Abdominal location: epigastric Qualified Code(s): R10.13 - Epigastric pain Is this a current diagnosis for this admission?: Yes - Plan Summary Plan Summary: This is a 44-year-old female with epigastric abdominal pain. The patient has congestive heart failure. Her last BNP was 25,000. A gallbladder ultrasound was ordered, showing thickening of the gallbladder wall. In this patient, a finding of gallbladder wall thickening is not necessarily pathologic. With congestive heart failure one can experience cardiac hepatopathy and benign gallbladder wall thickening. I will order a HIDA scan to evaluate for filling of the gallbladder. If the gallbladder fills, cholecystitis can be ruled out. The patient's LFTs are completely normal, which also is consistent with benign thickening of the gallbladder due to congestive heart failure. Currently, I do not have an explanation for the patient's constant abdominal pain. She reports that she ate normally earlier today. If her HIDA scan is normal, further work- up may be warranted. I will order an amylase and lipase to evaluate for pancreatitis. A CT scan may be necessary to rule out internal hernias or afferent limb syndrome (associated with her gastric bypass). Further recommendations will be determined once her HIDA scan has been performed.
[2019-05-26] MEDS: FUROSEMIDE 80 MG TABLET PO SCH ×3 (01:31→17:32)
[2019-05-26 05:27] LABS: INTERNATIONAL RATION (INR) 2.24; PROTHROMBIN TIME 25.2 SEC (11.4-15.4)
[2019-05-26 05:45] LABS: ALBUMIN 2.1 g/dL (3.5-5.0); ALKALINE PHOSPHATASE 107 U/L (38-126); ANION GAP 7 (5-19); ASPARTATE AMINO TRANSFERASE 22 U/L (14-36); BILIRUBIN,DIRECT 0.3 mg/dL (0.0-0.4); BILIRUBIN,TOTAL 0.5 mg/dL (0.2-1.3); BLOOD UREA NITROGEN 42 mg/dL (7-20); CALCIUM 7.6 mg/dL (8.4-10.2); CARBON DIOXIDE 24 mmol/L (22-30); CHLORIDE 107 mmol/L (98-107); GLUCOSE 96 mg/dL (75-110); POTASSIUM 3.5 mmol/L (3.6-5.0); TOTAL PROTEIN 4.1 g/dL (6.3-8.2)
[2019-05-26 05:50] LABS: AMYLASE < 30 U/L (30-110)
[2019-05-26] MEDS: CARVEDILOL 12.5 MG TABLET PO SCH ×2 (06:34→17:32)
[2019-05-26] MEDS: BUMETANIDE 1 MG TABLET PO SCH (06:34)
[2019-05-26] MEDS: ISOSORBIDE MONONITRATE 30 MG TAB.ER.24H PO SCH ×3 (06:35→17:32)
[2019-05-26] MEDS: CALCITRIOL 0.25 MCG CAPSULE PO SCH (09:37)
[2019-05-26] MEDS: SACUBITRIL/VALSARTAN 97 MG/103 MG TABLET PO SCH ×2 (09:37→21:47)
[2019-05-26] MEDS: PANTOPRAZOLE SODIUM 40 MG TABLET.DR PO SCH (09:38)
[2019-05-26] MEDS: NITROFURANTOIN MONOHYD/M-CRYST 100 MG CAPSULE PO SCH ×2 (09:38→17:32)
--- NOTE | 2019-05-26 10:12 | RADIOLOGY REPORT (SQ) ---
EXAM DESCRIPTION: NM HIDA SCAN COMPLETED DATE/TIME: 05/26/2019 9:41 am REASON FOR STUDY: GB wall thickening, eval for cholecystitis Z79.01 LONGTERM (CURRENT) USE OF ANTI COAGULANTS N39.0 URINARY TRACT INFECTION, SITE NOT SPECIFIED COMPARISON: None. RADIONUCLIDE AND DOSE: DOSAGE RADIONUCLIDE: 5.31 millicuries Tc99m Mebrofenin. DOSAGE MORPHINE: Not required. The route of agent administration: Intravenous TECHNIQUE: Serial imaging right upper quadrant up to 60 minutes following injection of radionuclide. Patient imaged AP and Right Lateral. LIMITATIONS: None. FINDINGS: LIVER: Normal visualization without areas of photopenia. INTRA-HEPATIC BILE DUCTS: Temporal visualization normal. No dilatation. COMMON BILE DUCT: Normal without dilatation or delayed visualization. GALLBLADDER: Normal visualization. OTHER: No other significant finding. IMPRESSION: The cystic and common bile ducts are patent. TECHNICAL DOCUMENTATION: JOB ID: [id number] [employer]- All Rights Reserved Reading location - IP/workstation name: [email or web address]
--- NOTE | 2019-05-26 15:42 | PDOC PROGRESS REPORT ---
Subjective Progress Note for:: 05/26/19 Subjective:: epigastric pains Reason For Visit: CHF EXACERBATION Physical Exam Vital Signs: Temp Pulse Resp BP Pulse Ox 97.7 F 77 18 103/63 98 05/26/19 07:28 05/26/19 11:12 05/26/19 07:28 05/26/19 11:12 05/26/19 11:12 Intake & Output 05/25/19 05/26/19 05/27/19 06:59 06:59 06:59 Intake Total 1094 562 Output Total 1000 1075 Balance 94 -513 Weight 106 kg 106.5 kg Exam: abd is soft with very . Claims she has this off and on past 2 months mild epigastric tenderness Results Laboratory Results: 05/25/19 04:56 05/26/19 05:04 05/26/19 05:04 Sodium 137.6 Potassium 3.5 L Chloride 107 Carbon Dioxide 24 Anion Gap 7 BUN 42 H Creatinine 2.16 H Est GFR ( Amer) 30 L Glucose 96 Calcium 7.6 L Total Bilirubin 0.5 AST 22 Alkaline Phosphatase 107 Total Protein 4.1 L Albumin 2.1 L Amylase < 30 L Lipase 22.1 L 05/17/19 05/18/19 05/18/19 17:48 01:36 05:08 CK-MB (CK-2) 4.07 4.14 Troponin I 0.041 0.048 0.053 NT-Pro-B Natriuret Pep 10137 H 05/18/19 12:38 CK-MB (CK-2) 4.57 H Troponin I 0.044 NT-Pro-B Natriuret Pep Impressions: Chest X-Ray 05/17/19 17:52 IMPRESSION: CARDIAC ENLARGEMENT. VASCULAR CONGESTION. Upper GI Series 05/24/19 00:00 IMPRESSION: 1. Postsurgical changes from gastric bypass. Otherwise unremarkable upper GI series. Abdomen Ultrasound 05/25/19 00:00 IMPRESSION: 1. Echogenic kidneys suggestive of medical renal disease. 2. Mild hepatomegaly with fatty infiltration of liver. 3. Thickened gallbladder wall. Negative sonographic Webb sign. There are gallstones. Hepatobiliary Scan Nuclear Medicine 05/25/19 00:00 IMPRESSION: The cystic and common bile ducts are patent. Assessment & Plan - Time Time Spent with patient: 15-24 minutes - Plan Summary Plan Summary: HIDA scan is normal. All LFT's also normal. She is able to eat. No surgical abdomen at this time. May need more work-up for chronic epigastric pains with GI
--- NOTE | 2019-05-26 19:37 | PDOC DISCHARGE SUMMARY ---
General - Admit/Disc Date/PCP Admission Date/Primary Care Provider: 05/21/19 16:11 VU GUZMAN MD Discharge Date: 05/26/19 - Discharge Diagnosis (1) Acute systolic heart failure Is this a current diagnosis for this admission?: Yes (2) Chest pain Is this a current diagnosis for this admission?: Yes (3) Chronic combined systolic (congestive) and diastolic (congestive) heart failure Is this a current diagnosis for this admission?: Yes (4) Focal segmental glomerulosclerosis Is this a current diagnosis for this admission?: Yes (5) Focal segmental glomerulosclerosis Is this a current diagnosis for this admission?: Yes (6) Chronic pain syndrome Is this a current diagnosis for this admission?: Yes (7) Urinary tract infection Is this a current diagnosis for this admission?: Yes (8) Epigastric pain Is this a current diagnosis for this admission?: Yes (9) Cholelithiasis Is this a current diagnosis for this admission?: Yes - Additional Information Resuscitation Status: Full Code Discharge Diet: Cardiac Discharge Activity: Activity As Tolerated, Balance Activity w/Rest, Weigh Daily Home Medications: Bumetanide [Bumex 1 mg Tablet] 3 mg PO 0600 #90 tablet 07/28/18 Doxepin HCl [Silenor] 6 mg PO QHS #30 tablet 07/28/18 Calcitriol [Rocaltrol 0.25 mcg Capsule] 0.25 mcg PO DAILY 05/17/19 Ergocalciferol (Vitamin D2) [Drisdol 50,000 unit (1.25MG) Capsule] 50,000 unit PO MO@1000 05/17/19 Ferrous Sulfate [Feosol 325 mg Tablet] 325 mg PO DAILY 05/17/19 Furosemide [Lasix 80 mg Tablet] 80 mg PO Q8 05/17/19 Pantoprazole Sodium [Protonix [address] Tablet] 40 mg PO QAM 05/17/19 Atorvastatin Calcium [Lipitor 80 mg Tablet] 80 mg PO QHS 05/18/19 Carvedilol [Coreg 12.5 mg Tablet] 12.5 mg PO Q12 05/18/19 Isosorbide Mononitrate [Imdur 30 mg Tablet.er] 30 mg PO DAILY@0600,1200,1800 05/18/19 Sacubitril/Valsartan [Entresto 97 mg/103 mg Tablet] 1 tab PO Q12 05/18/19 Warfarin Sodium [Coumadin 5 mg Tablet] 5 mg PO DAILY 05/18/19 Warfarin Sodium [Coumadin 7.5 mg Tablet] 7.5 mg PO TUTH@1000 05/18/19 Warfarin Sodium [Coumadin 5 mg Tablet] 5 mg PO QHS tablet 05/26/19 History of Present Illness History of Present Illness: BERONICA YEUNG is a 44 year old female,She was sent to the emergency room by the coil tester, she was scheduled for outpatient EGD and colonoscopy however she stated that she was having chest pain, the chest pain was substernal because of her symptoms, Dr. Mcneal the coil tester referred her to the emergency room for evaluation. In the emergency room she was evaluated it was felt that she needed to be admitted to the hospital for further evaluation. 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 3 sets of cardiac enzymes were negative for acute CT, BNP is elevated but she has a history of chronic systolic and diastolic heart failure, 2D echo is ordered to assess LV function Hospital Course Hospital Course: Patient was admitted for the management of epigastric pain, she has history of chronic systolic and diastolic heart failure. 3 sets of cardiac enzymes negative for acute CT, she was initially admitted for observation, she decompensated, developed acute systolic and diastolic heart failure, the care was transition to inpatient. She was treated with furosemide infusion, she was diuresed. She continues to have epigastric pain, she was initially supposed to undergo EGD and colonoscopy but she did not follow the guidelines for the GI prep so the procedure was never done. Because of the continued epigastric pain she underwent upper GI series with GI follow-through, this was negative for any ulcers or any mucosal lesion essentially negative study. She subsequently had ultrasound of the gallbladder that demonstrated thickened gallbladder with gallstones per consultation was requested from surgery, the surgeon ordered a HIDA scan which was negative for cholecystitis, the surgeon felt she does not need surgery at this time, though she has symptomatic gallstones Physical Exam Vital Signs: Temp Pulse Resp BP Pulse Ox 98.3 F 75 18 103/75 100 05/26/19 15:16 05/26/19 15:16 05/26/19 15:16 05/26/19 15:16 05/26/19 15:16 Intake & Output 05/25/19 05/26/19 05/27/19 06:59 06:59 06:59 Intake Total 1094 562 360 Output Total 1000 1075 1300 Balance 94 -513 -940 Weight 106 kg 106.5 kg General appearance: PRESENT: no acute distress Eye exam: PRESENT: PERRLA Respiratory exam: PRESENT: clear to auscultation abdi Cardiovascular exam: PRESENT: +S1, +S2 GI/Abdominal exam: PRESENT: soft Neurological exam: PRESENT: alert Results Laboratory Results: 05/25/19 04:56 05/26/19 05:04 05/26/19 05:04 Sodium 137.6 Potassium 3.5 L Chloride 107 Carbon Dioxide 24 Anion Gap 7 BUN 42 H Creatinine 2.16 H Est GFR ( Amer) 30 L Glucose 96 Calcium 7.6 L Total Bilirubin 0.5 AST 22 Alkaline Phosphatase 107 Total Protein 4.1 L Albumin 2.1 L Amylase < 30 L Lipase 22.1 L 05/17/19 05/18/19 05/18/19 17:48 01:36 05:08 CK-MB (CK-2) 4.07 4.14 Troponin I 0.041 0.048 0.053 NT-Pro-B Natriuret Pep [id number] H 05/18/19 12:38 CK-MB (CK-2) 4.57 H Troponin I 0.044 NT-Pro-B Natriuret Pep Impressions: Chest X-Ray 05/17/19 17:52 IMPRESSION: CARDIAC ENLARGEMENT. VASCULAR CONGESTION. Upper GI Series 05/24/19 00:00 IMPRESSION: 1. Postsurgical changes from gastric bypass. Otherwise unremarkable upper GI series. Abdomen Ultrasound 05/25/19 00:00 IMPRESSION: 1. Echogenic kidneys suggestive of medical renal disease. 2. Mild hepatomegaly with fatty infiltration of liver. 3. Thickened gallbladder wall. Negative sonographic Webb sign. There are gallstones. Hepatobiliary Scan Nuclear Medicine 05/25/19 00:00 IMPRESSION: The cystic and common bile ducts are patent. Qualifiers - * PATIENT BEING DISCHARGED WITH ANY OF THE FOLLOWING DIAGNOSIS: No VTE patient discharged on overlapping Therapy?: No Reason(s) for not prescribing Overlap Therapy:: Not indicated Stroke Pt being discharged on Anti-thrombolytic therapy?: No Reason(s) for not prescribing Anti-thrombolytic therapy:: Not indicated Stroke Pt being discharged on Statins?: No Reason(s) for not prescribing Statins therapy:: Not indicated CT Pt being discharged on Aspirin therapy?: No Reason(s) for not prescribing Aspirin therapy:: Not indicated CT Pt being discharged on Statins?: No Reason(s) for not prescribing Statin therapy:: Not indicated CT Pt discharged ACEI/ARBS?: No Reason(s) for not prescribing ACEI/ARBS:: Not indicated Acute Heart Failure - Is this a Heart Failure Patient?: Yes Documentation of LVEF assessment?: Yes LVEF < 40%?: Yes-if yes answer questions a through e a) Discharged on ACEI?: Yes b) Discharges on ARB?: Yes c) Discharged on ARNI?: Yes d) Discharged on evidence-based Beta bear(carvedilol, sustained release metoprolol succinate, or bisoprolol)?: Yes e) For LVEF <35%, discharged on Aldosterone antagonist?: No-document contraincations Reason(s) not discharged on Aldosterone antagonist for LVEF < 35%: Hyperkalemia 3. Anticoagulant therapy for permanect/persistent/paraoxysmal Afib or Aflutter: Yes Follow-up Appointment scheduled within 7 days?: Yes
[2019-05-26] MEDS: ATORVASTATIN CALCIUM 80 MG TABLET PO SCH (21:47)
[2019-05-26] MEDS ORDERED: WARFARIN SODIUM 7.5 MG TABLET PO SCH (22:00)
[2019-05-26] MEDS ORDERED: WARFARIN SODIUM 5 MG TABLET PO SCH (22:00)
[2019-05-26] MEDS: DIPHENHYDRAMINE HCL 50 MG/ML VIAL IV PRN (22:52)
[2019-05-27 01:14] VITALS: BP 117/72
[2019-05-27] MEDS: FUROSEMIDE 80 MG TABLET PO SCH (02:02)
[2019-05-27 05:41] LABS: INTERNATIONAL RATION (INR) 2.78; PROTHROMBIN TIME 29.9 SEC (11.4-15.4)
[2019-05-27] MEDS: BUMETANIDE 1 MG TABLET PO SCH (06:06)
[2019-05-27] MEDS: CARVEDILOL 12.5 MG TABLET PO SCH (06:06)
[2019-05-27] MEDS: ISOSORBIDE MONONITRATE 30 MG TAB.ER.24H PO SCH (06:06)
[2019-05-28] MEDS ORDERED: WARFARIN SODIUM 5 MG TABLET PO SCH (22:00)
[2019-05-29] MEDS ORDERED: WARFARIN SODIUM 5 MG TABLET PO SCH (22:00)
== END 2019-05-27 09:13 | disposition home or self-care (01) | DRG 292 ==
LOC: ER 17:20 → EH 20:28 → INTOOBSV 20:28 → 3N 05-18 01:58 → OBSVTOIN 05-21 16:11
PROVIDERS: ADMIT Internal Medicine; ATTEND Internal Medicine
DX: I11.0 Hypertensive heart disease with heart failure (principal); N04.9 Nephrotic syndrome with unspecified morphologic changes; K80.00 Calculus of gallbladder with acute cholecystitis without obstruction; N39.0 Urinary tract infection, site not specified; I50.42 Chronic combined systolic (congestive) and diastolic (congestive) heart failure; E66.01 Morbid (severe) obesity due to excess calories; Z79.01 Long term (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 of 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; G47.33 Obstructive sleep apnea (adult) (pediatric); E11.9 Type 2 diabetes mellitus without complications; F32.9 Major depressive disorder, single episode, unspecified; D64.9 Anemia, unspecified; G89.29 Other chronic pain; R10.13 Epigastric pain; I25.10 Atherosclerotic heart disease of native coronary artery without angina pectoris; K21.9 Gastro-esophageal reflux disease without esophagitis; J44.9 Chronic obstructive pulmonary disease, unspecified; N26.9 Renal sclerosis, unspecified; R30.0 Dysuria; R35.0 Frequency of micturition; Z86.718 Personal history of other venous thrombosis and embolism; Z86.711 Personal history of pulmonary embolism; Z98.84 Bariatric surgery status; Z95.5 Presence of coronary angioplasty implant and graft; I25.2 Old myocardial infarction; Z95.810 Presence of automatic (implantable) cardiac defibrillator; Z91.11 Patient's noncompliance with dietary regimen; Z82.49 Family history of ischemic heart disease and other diseases of the circulatory system; Z88.6 Allergy status to analgesic agent; Z88.1 Allergy status to other antibiotic agents
CPT/HCPCS: 36415; 71046; 74247; 76700; 78226; 80048; 80053; 80061; 81001; 82150; 82553; 82962; 83690; 83880; 84484; 85025; 85027; 85610; 85730; 87086; 93005; 93010; 93306; 93970; 93976; 94660; 96374; 96375; 99285; A9537; G0378; J0171; J1200; J1610; J1644; J1940; J2250; J2270; J2310; J2405; J3010; J3490; J7050; J8499; Q9969

== ENCOUNTER → 2019-05-17 | Day surgery (SDC) | payer MEDICARE, MEDICAID ==
[2019-05-17 16:20] VITALS: BP 136/90
== END ==
LOC: END 15:59
PROVIDERS: ATTEND Internal Medicine Gastroenterology
DX: R69 Illness, unspecified (principal)

== ENCOUNTER 2019-09-08 00:06 | Inpatient (IN) | payer MEDICARE, MEDICAID ==
[2019-09-08 01:25] LABS: ABSOLUTE EOSINOPHILS # (AUTO) 0.1 10^3/uL (0.0-0.6); ABSOLUTE LYMPHOCYTES (AUTO) 0.6 10^3/uL (0.5-4.7); ABSOLUTE MONOCYTES (AUTO) 0.3 10^3/uL (0.1-1.4); ABSOLUTE NEUT (AUTO) 3.6 10^3/uL (1.7-8.2); BASOPHILS % (AUTO) 0.9 % (0-2); EOSINOPHILS % (AUTO) 2.1 % (0-6); HEMATOCRIT 39.6 % (36.0-47.0); HEMOGLOBIN 12.5 g/dL (12.0-15.5); LYMPHOCYTES % (AUTO) 12.5 % (13-45); MEAN CORPUSCULAR HEMOGLOBIN 26.6 pg (27.0-33.4); MEAN CORPUSCULAR HGB CONC 31.5 g/dL (32.0-36.0); MEAN CORPUSCULAR VOLUME 84 fl (80-97); PLATELET COUNT 245 10^3/uL (150-450); RED BLOOD COUNT 4.69 10^6/uL (3.72-5.28); RED CELL DISTRIBUTION WIDTH 18.6 % (11.5-14.0); SEGMENTED NEUTROPHILS % (AUTO) 77.5 % (42-78); TOTAL CELLS COUNTED % (AUTO) 100 %; WHITE BLOOD COUNT 4.7 10^3/uL (4.0-10.5)
[2019-09-08 01:26] LABS: APPEARANCE,URINE TURBID; BILIRUBIN,URINE NEGATIVE (NEGATIVE); COLOR,URINE AMBER; GLUCOSE, URINE NEGATIVE (NEGATIVE); KETONES,URINE NEGATIVE (NEGATIVE); LEUKOCYTE ESTERASE,URINE NEGATIVE (NEGATIVE); NITRITE,URINE NEGATIVE (NEGATIVE); PROTEIN,URINE >=500 mg/dL (NEGATIVE); URINE SPECIFIC GRAVITY 1.026
--- NOTE | 2019-09-08 01:32 | RADIOLOGY REPORT (SQ) ---
EXAM DESCRIPTION: XR CHEST 1 VIEW COMPLETED DATE/TME: 09/08/2019 00:46 CLINICAL HISTORY: 44 years, Female, difficulty breathing COMPARISON: 05/17/2019 chest NUMBER OF VIEWS: 1 TECHNIQUE: Portable chest LIMITATIONS: None. FINDINGS: Cardiac megaly. Left-sided pacing device. Elevation of the right hemidiaphragm. Small right pleural effusion with adjacent airspace opacity. No pneumothorax IMPRESSION: Cardiomegaly. Small right pleural effusion with adjacent airspace opacity copyright 2010 [employer]- All Rights Reserved
[2019-09-08 01:37] LABS: ALBUMIN 2.2 g/dL (3.5-5.0); ALKALINE PHOSPHATASE 118 U/L (38-126); ANION GAP 9 (5-19); ASPARTATE AMINO TRANSFERASE 20 U/L (14-36); BILIRUBIN,DIRECT 0.2 mg/dL (0.0-0.4); BILIRUBIN,TOTAL 0.5 mg/dL (0.2-1.3); BLOOD UREA NITROGEN 39 mg/dL (7-20); CALCIUM 7.5 mg/dL (8.4-10.2); CARBON DIOXIDE 24 mmol/L (22-30); CHLORIDE 105 mmol/L (98-107); GLUCOSE 100 mg/dL (75-110); POTASSIUM 3.2 mmol/L (3.6-5.0); TOTAL PROTEIN 4.6 g/dL (6.3-8.2)
[2019-09-08 01:49] LABS: CREATINE KINASE MB 5.41 ng/mL (<4.55)
[2019-09-08 01:51] LABS: TROPONIN I 0.05 ng/mL
[2019-09-08] MEDS ORDERED: DIPHENHYDRAMINE HCL 50 MG/ML VIAL IV ONE ×3 (03:15→05:35)
[2019-09-08] MEDS ORDERED: MORPHINE SULFATE 10 MG/ML INJ IV ONE (03:15)
--- NOTE | 2019-09-08 03:23 | ER Document Report ---
ED Respiratory Problem <MAT ENAMORADO - Last Filed: 09/08/19 06:12> - General TRAVEL OUTSIDE OF THE [place] IN LAST 30 DAYS: No <VIDHYA BONILLA - Last Filed: 09/08/19 06:23> - General Chief Complaint: Breathing Difficulty Stated Complaint: DIFFICULTY BREATHING Time Seen by Provider: 09/08/19 02:22 Primary Care Provider: VU GUZMAN MD [Primary Care Provider] - Follow up as needed Notes: Patient is a 44-year-old female with multiple chronic medical problems including CHF, CKD, hypertension, who presents the emergency department with chest pain and shortness of breath. Patient states that she has had her chest pain shortness of breath for the past week. She was sent for a CT of the abdomen pelvis and was diagnosed with a large pulmonary edema noted on the right side. (VIDHYA BONILLA) - Related Data Allergies/Adverse Reactions: hydrocodone bitartrate [From Vicodin] Allergy (Verified 07/27/18 11:36) Hives hydromorphone HCl [From Dilaudid] Allergy (Verified 05/16/19 14:28) Hives levofloxacin [From Levaquin] Allergy (Verified 07/27/18 11:36) Hives oxycodone HCl [From Percocet] Allergy (Verified 07/27/18 11:36) Hives tramadol [Tramadol] Allergy (Verified 07/27/18 11:36) Hives Past Medical History - Social History Smoking Status: Never Smoker Family History: None, Reviewed & Not Pertinent, Hypertension Patient has suicidal ideation: No Patient has homicidal ideation: No - Past Medical History Cardiac Medical History: Reports: Hx Congestive Heart Failure - Chronic systolic and diastolic heart failure, Hx Coronary Artery Disease, Hx Heart Attack - STENTS/DEFIBRILLATOR/PACEMAKER, Hx Hypertension, Hx Pulmonary Embolism Pulmonary Medical History: Reports: Hx COPD, Hx Pneumonia Denies: Hx Asthma, Hx Bronchitis, Hx Tuberculosis Neurological Medical History: Denies: Hx Cerebrovascular Accident, Hx Seizures Endocrine Medical History: Reports: Hx Diabetes Mellitus Type 2 - non compliant (pt has snacks in her suitcase etc) Renal/ Medical History: Reports: Hx Renal Insufficiency. Denies: Hx Peritoneal Dialysis GI Medical History: Reports: Hx Gastroesophageal Reflux Disease Musculoskeletal Medical History: Denies Hx Arthritis Skin Medical History: Reports Hx Cellulitis - Left upper extremity cellulitis week and a half ago Psychiatric Medical History: Reports: Hx Depression Past Surgical History: Reports: Hx Cardiac Catheterization - stent x1, Hx Cardiac Surgery - pace/defib, Hx Coronary Stent, Hx Internal Defibrillator, Hx Pacemaker - AICD. Denies: Hx Hysterectomy - Immunizations Hx Diphtheria, Pertussis, Tetanus Vaccination: No Hx Pneumococcal Vaccination: 06/28/13 <VIDHYA BONILLA - Last Filed: 09/08/19 06:23> Physical Exam - Vital signs Vitals: Temp Pulse Ox 98.6 F 3 L 09/08/19 00:06 09/08/19 00:06 Course - Laboratory Result Diagrams: 09/08/19 01:08 09/08/19 01:08 <MAT ENAMORADO - Last Filed: 09/08/19 06:12> - Laboratory Result Diagrams: 09/08/19 01:08 09/08/19 01:08 <VIDHYA BONILLA - Last Filed: 09/08/19 06:23> - Re-evaluation Re-evalutation: 09/08/19 06:12 I did personally see and examined this patient in conjunction with nurse practitioner Vidhya bonilla. Patient has a history of recurrent right-sided pleural effusion that has been drained several times. Patient has also been having worsening right upper quadrant abdominal pain that worsens with all foods and is associated with nausea and vomiting. CAT scan from outside imaging center has report available only, it does show possible cholelithiasis, ultrasou nd was obtained and it does show cholelithiasis and cholecystitis. X-ray shows right-sided pleural effusion, patient has some hypoxia but she does not need a thoracentesis immediately. Patient will be admitted to Dr. Terrazas service with Dr. Burgess consulting for the acute cholecystitis and the pleural effusion if it ends up needing drainage. Patient is currently stable on 3 L via nasal cannula. (MAT ENAMORADO) 09/08/19 05:[address] Burgess, the surgicalist stonemason supervisor. He is willing to consult for the patient's acute cholecystitis. I also advised him of the patient's right pulmonary effusion. 09/08/19 05:[address] Guzman, the patient will be admitted to [facility]MCU. (VIDHYA BONILLA) - Vital Signs Vital signs: Temp Pulse Resp BP Pulse Ox 98.1 F 13 116/91 H 99 09/08/19 05:00 09/08/19 05:58 09/08/19 05:06 09/08/19 05:59 - Laboratory Laboratory results interpreted by me: 09/08/19 09/08/19 09/08/19 01:08 01:08 01:08 MCH 26.6 L MCHC 31.5 L RDW 18.6 H Lymph % (Auto) 12.5 L Potassium 3.2 L BUN 39 H Creatinine 1.74 H Est GFR ( Amer) 38 L Est GFR (MDRD) Non-Af 32 L Calcium 7.5 L CK-MB (CK-2) 5.41 H NT-Pro-B Natriuret Pep 60097 H Total Protein 4.6 L Albumin 2.2 L Urine Protein Urine Blood Urine Urobilinogen Urine Ascorbic Acid 09/08/19 01:14 MCH MCHC RDW Lymph % (Auto) Potassium BUN Creatinine Est GFR ( Amer) Est GFR (MDRD) Non-Af Calcium CK-MB (CK-2) NT-Pro-B Natriuret Pep Total Protein Albumin Urine Protein >=500 H Urine Blood SMALL H Urine Urobilinogen 2.0 H Urine Ascorbic Acid 20 H Discharge <MAT ENAMORADO - Last Filed: 09/08/19 06:12> - Discharge Admitting Provider: Jacinta Unit Admitted: IMCU <VIDHYA BONILLA - Last Filed: 09/08/19 06:23> - Discharge Clinical Impression: Hypoxia, Acute cholecystitis Abdominal pain Qualifiers: Abdominal location: right upper quadrant Qualified Code(s): R10.11 - Right upper quadrant pain Chronic kidney disease Qualifiers: Chronic kidney disease stage: unspecified stage Qualified Code(s): N18.9 - Chronic kidney disease, unspecified Condition: Fair Disposition: ADMITTED INPATIENT Referrals: VU GUZMAN MD [Primary Care Provider] - Follow up as needed
[2019-09-08] MEDS ORDERED: IPRATROPIUM/ALBUTEROL 0.5-2.5 MG/3 ML AMPUL NEB ONE (03:34)
[2019-09-08] MEDS ORDERED: HYDROMORPHONE HCL INJ/PF 2 MG/ML AMPULE IV ONE (03:34)
--- NOTE | 2019-09-08 04:28 | RADIOLOGY REPORT (SQ) ---
CLINICAL HISTORY: RUQ pain COMPARISON: None. TECHNIQUE: US ABDOMEN LIMITED on 09/08/2019 3:19 AM INSTRUMENT PROCESSING TECH FINDINGS: Liver is enlarged and fatty in echotexture. Portal vein is patent. Gallbladder is normally distended with wall thickening of up to 11 mm. There are no definite gallstones. There is no pericholecystic fluid. Common bile duct measures 2 mm. Right kidney measures 9 cm and is slightly echogenic. Spleen is not imaged. IMPRESSION: Thickening of the gallbladder wall. Acute cholecystitis is not excluded.
[2019-09-08] MEDS ORDERED: ONDANSETRON HCL INJ/PF 4 MG/2 ML SDV IV ONE (04:54)
[2019-09-08] MEDS: POTASSI CL 20 MEQ/50 ML RIDER 20 MEQ/50 ML RTUPB IV SCH ×2 (06:13→09:21)
[2019-09-08] MEDS ORDERED: FUROSEMIDE INJ/PF 40 MG/4 ML SDV IV ONE (06:14)
--- NOTE | 2019-09-08 06:44 | EKG REPORT ---
SEVERITY:- ABNORMAL ECG - AFIB/FLUT AND V-PACED COMPLEXES : Confirmed by: Wilfredo Bailey MD 08-Sep-2019 06:43:20
[2019-09-08 10:51] LABS: ANION GAP 6 (5-19); BLOOD UREA NITROGEN 41 mg/dL (7-20); CALCIUM 7.8 mg/dL (8.4-10.2); CARBON DIOXIDE 26 mmol/L (22-30); CHLORIDE 107 mmol/L (98-107); CREATINE KINASE 339 U/L (30-135); GLUCOSE 111 mg/dL (75-110); POTASSIUM 3.9 mmol/L (3.6-5.0)
[2019-09-08 10:57] LABS: CREATINE KINASE MB 6.19 ng/mL (<4.55); TROPONIN I 0.077 ng/mL
--- NOTE | 2019-09-08 13:34 | PDOC CONSULTATION ---
Consultation Consult Date: 09/08/19 Provider Consulted: MARK ANTHONY DE LA FUENTE Consult reason:: Right upper quadrant pains with thickened gallbladder wall on ultrasound History of Present Illness Admission Date/PCP: 09/08/19 06:24 VU GUZMAN MD Patient complains of: RUQ and back pains History of Present Illness: BERONICA YEUNG is a 44 year old female with history of CHF,CKD and hypertension came to ED last night for SOB and chest pains. Noted thickend gallbladder wall to 11 mm but no stones.Slightly elevated troponin 0.077 and BNP 22,750 with right pleural effusion on CXR. Past Medical History Cardiac Medical History: Reports: Congestive Heart Failure - Chronic systolic and diastolic heart failure, Coronary Artery Disease, Myocardial Infarction - STENTS/DEFIBRILLATOR/PACEMAKER, Hypertension, Pulmonary Embolism Pulmonary Medical History: Reports: Chronic Obstructive Pulmonary Disease (COPD ), Pneumonia Denies: Asthma, Bronchitis, Tuberculosis Neurological Medical History: Denies: Seizures Endocrine Medical History: Reports: Diabetes Mellitus Type 2 - non compliant (pt has snacks in her suitcase etc) GI Medical History: Reports: Gastroesophageal Reflux Disease Musculoskeltal Medical History: Denies: Arthritis Psychiatric Medical History: Reports: Depression Hematology: Reports: Anemia Past Surgical History Past Surgical History: Reports: Cardiac Catheterization - stent x1, Coronary Stent, Internal Defibrillator, Pacemaker - AICD Denies: Hysterectomy Social History Smoking Status: Never Smoker Electronic Cigarette use?: No Frequency of Alcohol Use: None Hx Recreational Drug Use: No Drugs: None Hx Prescription Drug Abuse: No Family History Family History: None, Reviewed & Not Pertinent, Hypertension Parental Family History Reviewed: Yes Children Family History Reviewed: No Sibling(s) Family History Reviewed.: No Medication/Allergy Home Medications: Allopurinol [Zyloprim 100 mg Tablet] 100 mg PO DAILY 09/08/19 Amlodipine Besylate [Norvasc 10 mg Tablet] 10 mg PO DAILY 09/08/19 Atorvastatin Calcium [Lipitor 80 mg Tablet] 80 mg PO QHS 09/08/19 Calcitriol [Rocaltrol 0.25 Mcg Capsule] 0.25 mcg PO DAILY 09/08/19 Carvedilol [Coreg 12.5 mg Tablet] 12.5 mg PO Q12 09/08/19 Docusate Sodium [Colace] 50 mg PO Q8 09/08/19 Ferrous Sulfate [Feosol 325 mg Tablet] 325 mg PO DAILY 09/08/19 Furosemide [Lasix 80 mg Tablet] 80 mg PO Q8 09/08/19 Isosorbide Mononitrate [Imdur 30 mg Tablet.er] 60 mg PO Q8 09/08/19 Lubiprostone [Amitiza 24 Mcg Capsule] 24 mcg PO Q12 09/08/19 Medroxyprogesterone Acet [Provera 10 Mg Tablet] 10 mg PO DAILY 09/08/19 Ondansetron HCl [Zofran 8 mg Tablet] 8 mg PO ASDIR PRN 09/08/19 Pantoprazole Sodium [Protonix [address] Tablet] 40 mg PO Q6AM 09/08/19 Sacubitril/Valsartan [Entresto 97 mg/103 mg Tablet] 1 tab PO Q12 09/08/19 Warfarin Sodium [Coumadin 5 mg Tablet] 5 mg PO DAILY 09/08/19 Warfarin Sodium [Coumadin 7.5 mg Tablet] 7.5 mg PO TUTH@1000 09/08/19 Zolpidem Tartrate [Ambien] 10 mg PO QHS 09/08/19 Allergies/Adverse Reactions: hydrocodone bitartrate [From Vicodin] Allergy (Verified 07/27/18 11:36) Hives hydromorphone HCl [From Dilaudid] Allergy (Verified 05/16/19 14:28) Hives levofloxacin [From Levaquin] Allergy (Verified 07/27/18 11:36) Hives oxycodone HCl [From Percocet] Allergy (Verified 07/27/18 11:36) Hives tramadol [Tramadol] Allergy (Verified 07/27/18 11:36) Hives Review of Systems Constitutional: PRESENT: as per HPI, other - No fever or chills Cardiovascular: PRESENT: chest pain Gastrointestinal: PRESENT: abdominal pain - Right upper quadrant pains Physical Exam Vital Signs: Temp Pulse Resp BP Pulse Ox 97.2 F 78 18 110/72 99 09/08/19 10:47 09/08/19 10:47 09/08/19 10:47 09/08/19 10:47 09/08/19 10:47 Intake & Output 09/07/19 09/08/19 09/09/19 06:59 06:59 06:59 Intake Total 50 Balance 50 Weight 111.13 kg General appearance: PRESENT: mild distress Head exam: PRESENT: atraumatic Eye exam: PRESENT: conjunctiva pink Mouth exam: PRESENT: moist Neck exam: PRESENT: full ROM Respiratory exam: PRESENT: decreased breath sounds Cardiovascular exam: PRESENT: RRR Pulses: PRESENT: normal radial pulses Vascular exam: PRESENT: normal capillary refill GI/Abdominal exam: PRESENT: soft, tenderness - Mild right upper quadrant Rectal exam: PRESENT: deferred Musculoskeletal exam: PRESENT: ambulatory Neurological exam: PRESENT: alert, oriented to person, oriented to place, oriented to time, oriented to situation Psychiatric exam: PRESENT: anxious Skin exam: PRESENT: normal color, warm Results Laboratory Results: 09/08/19 01:08 09/08/19 09:55 09/08/19 09/08/19 09/08/19 01:08 01:08 01:14 WBC 4.7 RBC 4.69 Hgb 12.5 Hct 39.6 MCV 84 MCH 26.6 L MCHC 31.5 L RDW 18.6 H Plt Count 245 Seg Neutrophils % 77.5 Sodium 137.8 Potassium 3.2 L Chloride 105 Carbon Dioxide 24 Anion Gap 9 BUN 39 H Creatinine 1.74 H Est GFR ( Amer) 38 L Glucose 100 Calcium 7.5 L Total Bilirubin 0.5 AST 20 Alkaline Phosphatase 118 Total Protein 4.6 L Albumin 2.2 L Urine Color [place] Urine Appearance TURBID Urine pH 5.0 Ur Specific [place] 1.026 Urine Protein >=500 H Urine Glucose (UA) NEGATIVE Urine Ketones NEGATIVE Urine Blood SMALL H Urine Nitrite NEGATIVE Ur Leukocyte Esterase NEGATIVE Urine WBC (Auto) 5 Urine RBC (Auto) 18 09/08/19 09:55 WBC RBC Hgb Hct MCV MCH MCHC RDW Plt Count Seg Neutrophils % Sodium 138.9 Potassium 3.9 Chloride 107 Carbon Dioxide 26 Anion Gap 6 BUN 41 H Creatinine 1.91 H Est GFR ( Amer) 35 L Glucose 111 H Calcium 7.8 L Total Bilirubin AST Alkaline Phosphatase Total Protein Albumin Urine Color Urine Appearance Urine pH Ur Specific [place] Urine Protein Urine Glucose (UA) Urine Ketones Urine Blood Urine Nitrite Ur Leukocyte Esterase Urine WBC (Auto) Urine RBC (Auto) 09/08/19 09/08/19 09/08/19 01:08 09:55 09:55 Creatine Kinase 339 H CK-MB (CK-2) 5.41 H 6.19 H Troponin I 0.050 0.077 NT-Pro-B Natriuret Pep 41123 H Impressions: Chest X-Ray 09/08/19 00:46 IMPRESSION: Cardiomegaly. Small right pleural effusion with adjacent airspace opacity copyright 2011 [employer]- All Rights Reserved Abdomen Ultrasound 09/08/19 03:19 IMPRESSION: Thickening of the gallbladder wall. Acute cholecystitis is not excluded. Assessment & Plan - Diagnosis (1) Abdominal pain Qualifiers: Abdominal location: right upper quadrant Qualified Code(s): R10.11 - Right upper quadrant pain Is this a current diagnosis for this admission?: Yes (2) Chronic kidney disease Qualifiers: Chronic kidney disease stage: stage 3 (moderate) Qualified Code(s): N18.3 - Chronic kidney disease, stage 3 (moderate) Is this a current diagnosis for this admission?: Yes (3) Acute combined systolic (congestive) and diastolic (congestive) heart failure Is this a current diagnosis for this admission?: Yes (4) Chest pain Qualifiers: Chest pain type: unspecified Qualified Code(s): R07.9 - Chest pain, unspecified Is this a current diagnosis for this admission?: Yes (5) Morbid obesity Is this a current diagnosis for this admission?: Yes - Time Time Spent: 30 to 50 Minutes - Inpatient Certification Medical Necessity: Need For Continuous Telemetry Monitoring, Risk of Complication if Not Cared For in Hospital - Plan Summary Plan Summary: 44-year-old female with known history of congestive heart failure, chronic kidney disease and hypertension complained of chest pains and shortness of breath. Incidental finding of thickened gallbladder wall on ultrasound but no stones. No definite evidence of acute cholecystitis. Her BNP is markedly elevated to 22,750. WBC is normal and all LFTs are normal. Impression: Patient does not present as having acute cholecystitis. Her right upper quadrant pains may be due to hepatomegaly due to congestive heart failure which she has based on the BNP that is markedly elevated. Plans: We will order HIDA scan primarily to check on the status of the gallladder. Thickenng of the gallbladder wall maybe seen in CHF & RUQ pains may also be seen in CHF with distended liver Zion's capsule.
[2019-09-08 15:58] LABS: CREATINE KINASE MB 5.64 ng/mL (<4.55); TROPONIN I 0.063 ng/mL
[2019-09-08] MEDS ORDERED: ONDANSETRON HCL 8 MG TABLET PO PRN (17:40)
[2019-09-08] MEDS ORDERED: (PENDING PHARMACY ID) (Warfarin Sodium 5 MG) PO SCH (17:45)
--- NOTE | 2019-09-08 20:51 | PDOC H&P ---
History of Present Illness Admission Date/PCP: 09/08/19 06:24 VU GUZMAN MD History of Present Illness: BERONICA YEUNG is a 44 year old female, She has history of chronic systolic and diastolic heart failure, she came to the emergency room for evaluation of abdominal pain, she was seen in the urgent care for evaluation of abdominal pain, she underwent a CAT scan of the abdomen and pelvis for the evaluation of the abdominal pain, the CAT scan demonstrated thickened gallbladder with possible stones, cholecystitis was suspected, she was then referred to the emergency room for further evaluation. In the emergency room she had ultrasound of the upper abdomen, it demonstrated thickened gallbladder no definitive stone was identified. She underlining chronic systolic and diastolic heart failure, the CAT scan of the abdomen and pelvis that was done outpatient demonstrated large pleural effusion but this was not demonstrated on the chest x-ray, the pleural effusion on chest x-ray was mild. Past Medical History Cardiac Medical History: Reports: Congestive Heart Failure - Chronic systolic and diastolic heart failure, Coronary Artery Disease, Myocardial Infarction - STENTS/DEFIBRILLATOR/PACEMAKER, Hypertension, Pulmonary Embolism Pulmonary Medical History: Reports: Chronic Obstructive Pulmonary Disease (COPD), Pneumonia Endocrine Medical History: Reports: Diabetes Mellitus Type 2 - non compliant (pt has snacks in her suitcase etc) GI Medical History: Reports: Gastroesophageal Reflux Disease Musculoskeltal Medical History: Denies: Arthritis Psychiatric Medical History: Reports: Depression Hematology: Reports: Anemia Past Surgical History Past Surgical History: Reports: Cardiac Catheterization - stent x1, Coronary Stent, Internal Defibrillator, Pacemaker - AICD Social History Smoking Status: Never Smoker Electronic Cigarette use?: No Frequency of Alcohol Use: None Hx Recreational Drug Use: No Drugs: None Hx Prescription Drug Abuse: No Family History Family History: None, Reviewed & Not Pertinent, Hypertension Parental Family History Reviewed: Yes Children Family History Reviewed: Yes Sibling(s) Family History Reviewed.: Yes Medication/Allergy Home Medications: Allopurinol [Zyloprim 100 mg Tablet] 100 mg PO DAILY 09/08/19 Amlodipine Besylate [Norvasc 10 mg Tablet] 10 mg PO DAILY 09/08/19 Atorvastatin Calcium [Lipitor 80 mg Tablet] 80 mg PO QHS 09/08/19 Calcitriol [Rocaltrol 0.25 Mcg Capsule] 0.25 mcg PO DAILY 09/08/19 Carvedilol [Coreg 12.5 mg Tablet] 12.5 mg PO Q12 09/08/19 Docusate Sodium [Colace] 50 mg PO Q8 09/08/19 Ferrous Sulfate [Feosol 325 mg Tablet] 325 mg PO DAILY 09/08/19 Furosemide [Lasix 80 mg Tablet] 80 mg PO Q8 09/08/19 Isosorbide Mononitrate [Imdur 30 mg Tablet.er] 60 mg PO Q8 09/08/19 Lubiprostone [Amitiza 24 Mcg Capsule] 24 mcg PO Q12 09/08/19 Medroxyprogesterone Acet [Provera 10 Mg Tablet] 10 mg PO DAILY 09/08/19 Ondansetron HCl [Zofran 8 mg Tablet] 8 mg PO ASDIR PRN 09/08/19 Pantoprazole Sodium [Protonix [address] Tablet] 40 mg PO Q6AM 09/08/19 Sacubitril/Valsartan [Entresto 97 mg/103 mg Tablet] 1 tab PO Q12 09/08/19 Warfarin Sodium [Coumadin 5 mg Tablet] 5 mg PO DAILY 09/08/19 Warfarin Sodium [Coumadin 7.5 mg Tablet] 7.5 mg PO TUTH@1000 09/08/19 Zolpidem Tartrate [Ambien] 10 mg PO QHS 09/08/19 Allergies/Adverse Reactions: hydrocodone bitartrate [From Vicodin] Allergy (Verified 07/27/18 11:36) Hives hydromorphone HCl [From Dilaudid] Allergy (Verified 05/16/19 14:28) Hives levofloxacin [From Levaquin] Allergy (Verified 07/27/18 11:36) Hives oxycodone HCl [From Percocet] Allergy (Verified 07/27/18 11:36) Hives tramadol [Tramadol] Allergy (Verified 07/27/18 11:36) Hives Review of Systems Constitutional: ABSENT: chills, fever(s), headache(s), weight gain, weight loss Eyes: ABSENT: visual disturbances Ears: ABSENT: hearing changes Cardiovascular: PRESENT: dyspnea on exertion, edema Respiratory: ABSENT: cough, hemoptysis Gastrointestinal: PRESENT: abdominal pain, nausea. ABSENT: constipation, diarrhea, hematemesis, hematochezia, vomiting Genitourinary: ABSENT: dysuria, hematuria Musculoskeletal: ABSENT: joint swelling Integumentary: ABSENT: rash, wounds Neurological: ABSENT: abnormal gait, abnormal speech, confusion, dizziness, focal weakness, syncope Psychiatric: ABSENT: anxiety, depression, homidical ideation, suicidal ideation Endocrine: ABSENT: cold intolerance, heat intolerance, menstrual abnormalities, polydipsia, polyuria Hematologic/Lymphatic: ABSENT: easy bleeding, easy bruising, lymphadenopathy Physical Exam Vital Signs: Temp Pulse Resp BP Pulse Ox 97.2 F 91 16 109/78 98 09/08/19 16:31 09/08/19 16:31 09/08/19 16:31 09/08/19 16:31 09/08/19 16:31 Intake & Output 09/07/19 09/08/19 09/09/19 06:59 06:59 06:59 Intake Total 50 Output Total 0 Balance 50 Weight 111.13 kg General appearance: PRESENT: no acute distress Head exam: PRESENT: atraumatic, normocephalic Eye exam: PRESENT: PERRLA Ear exam: PRESENT: normal external ear exam Neck exam: PRESENT: full ROM Respiratory exam: PRESENT: crackles Cardiovascular exam: PRESENT: RRR, +S1, +S2 Pulses: PRESENT: normal dorsalis pedis pul, +2 pedal pulses bilateral Vascular exam: PRESENT: normal capillary refill GI/Abdominal exam: PRESENT: normal bowel sounds, soft, tenderness Rectal exam: PRESENT: deferred Neurological exam: PRESENT: alert, CN II-XII grossly intact Psychiatric exam: ABSENT: homicidal ideation, suicidal ideation Skin exam: PRESENT: dry, intact, warm. ABSENT: cyanosis, rash Results Laboratory Results: 09/08/19 01:08 09/08/19 09:55 09/08/19 09/08/19 09/08/19 01:08 01:08 01:14 WBC 4.7 RBC 4.69 Hgb 12.5 Hct 39.6 MCV 84 MCH 26.6 L MCHC 31.5 L RDW 18.6 H Plt Count 245 Seg Neutrophils % 77.5 Sodium 137.8 Potassium 3.2 L Chloride 105 Carbon Dioxide 24 Anion Gap 9 BUN 39 H Creatinine 1.74 H Est GFR ( Amer) 38 L Glucose 100 Calcium 7.5 L Total Bilirubin 0.5 AST 20 Alkaline Phosphatase 118 Total Protein 4.6 L Albumin 2.2 L Urine Color [place] Urine Appearance TURBID Urine pH 5.0 Ur Specific [place] 1.026 Urine Protein >=500 H Urine Glucose (UA) NEGATIVE Urine Ketones NEGATIVE Urine Blood SMALL H Urine Nitrite NEGATIVE Ur Leukocyte Esterase NEGATIVE Urine WBC (Auto) 5 Urine RBC (Auto) 18 09/08/19 09:55 WBC RBC Hgb Hct MCV MCH MCHC RDW Plt Count Seg Neutrophils % Sodium 138.9 Potassium 3.9 Chloride 107 Carbon Dioxide 26 Anion Gap 6 BUN 41 H Creatinine 1.91 H Est GFR ( Amer) 35 L Glucose 111 H Calcium 7.8 L Total Bilirubin AST Alkaline Phosphatase Total Protein Albumin Urine Color Urine Appearance Urine pH Ur Specific [place] Urine Protein Urine Glucose (UA) Urine Ketones Urine Blood Urine Nitrite Ur Leukocyte Esterase Urine WBC (Auto) Urine RBC (Auto) 09/08/19 09/08/19 09/08/19 01:08 09:55 09:55 Creatine Kinase 339 H CK-MB (CK-2) 5.41 H 6.19 H Troponin I 0.050 0.077 NT-Pro-B Natriuret Pep [id number] H 09/08/19 09/08/19 14:51 14:57 Creatine Kinase 336 H CK-MB (CK-2) 5.64 H Troponin I 0.063 NT-Pro-B Natriuret Pep Impressions: Chest X-Ray 09/08/19 00:46 IMPRESSION: Cardiomegaly. Small right pleural effusion with adjacent airspace opacity copyright 2011 [employer]- All Rights Reserved Abdomen Ultrasound 09/08/19 03:19 IMPRESSION: Thickening of the gallbladder wall. Acute cholecystitis is not excluded. Assessment & Plan - Diagnosis (1) Abdominal pain Qualifiers: Abdominal location: right upper quadrant Qualified Code(s): R10.11 - Right upper quadrant pain Is this a current diagnosis for this admission?: Yes Plan: She has right upper quadrant abdominal pain, the ultrasound demonstrated a thickened gallbladder, HIDA scan to be obtained to rule in or rule out acute cholecystitis consultation obtained from surgery (2) Chronic combined systolic and diastolic CHF (congestive heart failure) Is this a current diagnosis for this admission?: Yes Plan: She has chronic combined systolic and diastolic heart failure the outside facility CAT scan suggests large right pleural effusion, ultrasound-guided thoracentesis will be ordered
[2019-09-08 21:09] LABS: CREATINE KINASE MB 5.31 ng/mL (<4.55); TROPONIN I 0.053 ng/mL
[2019-09-08] MEDS: AMLODIPINE BESYLATE 10 MG TABLET PO SCH (21:11)
[2019-09-08] MEDS ORDERED: (PENDING PHARMACY ID) (Zolpidem Tartrate [Ambien] 10 MG) PO SCH (22:00)
[2019-09-08] MEDS: FUROSEMIDE 80 MG TABLET PO SCH (22:16)
[2019-09-08] MEDS: ATORVASTATIN CALCIUM 80 MG TABLET PO SCH (22:16)
[2019-09-08] MEDS: ZOLPIDEM TARTRATE 5 MG TABLET PO SCH (22:16)
[2019-09-08] MEDS: DOCUSATE SODIUM 100 MG CAPSULE PO SCH (22:23)
[2019-09-08] MEDS: CARVEDILOL 12.5 MG TABLET PO SCH (22:23)
[2019-09-08] MEDS: LUBIPROSTONE 24 MCG CAPSULE PO SCH (22:23)
[2019-09-08] MEDS: SACUBITRIL/VALSARTAN 97 MG/103 MG TABLET PO SCH (22:23)
[2019-09-08] MEDS: ISOSORBIDE MONONITRATE 30 MG TAB.ER.24H PO SCH (22:24)
[2019-09-08] MEDS: DIPHENHYDRAMINE HCL 50 MG/ML VIAL IV PRN (22:56)
[2019-09-08] MEDS: MORPHINE SULFATE 10 MG/ML INJ IV PRN (22:56)
[2019-09-08 23:00] LABS: INTERNATIONAL RATION (INR) 1.55; PARTIAL THROMBOPLASTIN TIME 31.9 SEC (23.5-35.8); PROTHROMBIN TIME 18.7 SEC (11.4-15.4)
[2019-09-08 23:11] LABS: ALBUMIN 2.2 g/dL (3.5-5.0); ALKALINE PHOSPHATASE 110 U/L (38-126); ANION GAP 10 (5-19); ASPARTATE AMINO TRANSFERASE 18 U/L (14-36); BILIRUBIN,DIRECT 0.2 mg/dL (0.0-0.4); BILIRUBIN,TOTAL 0.4 mg/dL (0.2-1.3); BLOOD UREA NITROGEN 43 mg/dL (7-20); CALCIUM 7.8 mg/dL (8.4-10.2); CARBON DIOXIDE 22 mmol/L (22-30); CHLORIDE 104 mmol/L (98-107); GLUCOSE 169 mg/dL (75-110); POTASSIUM 3.9 mmol/L (3.6-5.0); TOTAL PROTEIN 4.5 g/dL (6.3-8.2)
[2019-09-09 05:03] LABS: HEMATOCRIT 38.6 % (36.0-47.0); HEMOGLOBIN 12.3 g/dL (12.0-15.5); MEAN CORPUSCULAR HEMOGLOBIN 26.9 pg (27.0-33.4); MEAN CORPUSCULAR HGB CONC 31.9 g/dL (32.0-36.0); MEAN CORPUSCULAR VOLUME 84 fl (80-97); PLATELET COUNT 243 10^3/uL (150-450); RED BLOOD COUNT 4.58 10^6/uL (3.72-5.28); RED CELL DISTRIBUTION WIDTH 18.5 % (11.5-14.0); WHITE BLOOD COUNT 4.2 10^3/uL (4.0-10.5)
[2019-09-09 05:31] LABS: ALBUMIN 2.4 g/dL (3.5-5.0); ALKALINE PHOSPHATASE 116 U/L (38-126); ANION GAP 9 (5-19); ASPARTATE AMINO TRANSFERASE 26 U/L (14-36); BILIRUBIN,DIRECT 0.2 mg/dL (0.0-0.4); BILIRUBIN,TOTAL 0.5 mg/dL (0.2-1.3); BLOOD UREA NITROGEN 44 mg/dL (7-20); CALCIUM 7.7 mg/dL (8.4-10.2); CARBON DIOXIDE 24 mmol/L (22-30); CHLORIDE 107 mmol/L (98-107); GLUCOSE 106 mg/dL (75-110); POTASSIUM 3.5 mmol/L (3.6-5.0); TOTAL PROTEIN 4.9 g/dL (6.3-8.2)
[2019-09-09] MEDS: DOCUSATE SODIUM 100 MG CAPSULE PO SCH ×3 (06:09→23:27)
[2019-09-09] MEDS: AMLODIPINE BESYLATE 10 MG TABLET PO SCH (09:40)
[2019-09-09] MEDS: CARVEDILOL 12.5 MG TABLET PO SCH ×2 (09:41→21:59)
[2019-09-09] MEDS: FERROUS SULFATE 325 MG TABLET PO SCH (09:41)
[2019-09-09] MEDS: CALCITRIOL 0.25 MCG CAPSULE PO SCH (09:41)
[2019-09-09] MEDS: LUBIPROSTONE 24 MCG CAPSULE PO SCH ×2 (09:41→23:22)
[2019-09-09] MEDS: ALLOPURINOL 100 MG TABLET PO SCH (09:41)
[2019-09-09] MEDS: SACUBITRIL/VALSARTAN 97 MG/103 MG TABLET PO SCH ×2 (09:42→21:59)
[2019-09-09] MEDS: MEDROXYPROGESTERONE ACET 10 MG TABLET PO SCH (09:44)
[2019-09-09] MEDS: FUROSEMIDE 80 MG TABLET PO SCH ×3 (09:44→23:23)
[2019-09-09] MEDS: PANTOPRAZOLE SODIUM 40 MG TABLET.DR PO SCH (09:44)
[2019-09-09] MEDS: ISOSORBIDE MONONITRATE 30 MG TAB.ER.24H PO SCH ×3 (09:44→21:59)
--- NOTE | 2019-09-09 10:16 | RADIOLOGY REPORT (SQ) ---
EXAM DESCRIPTION: NM HIDA SCAN COMPLETED DATE/TIME: 09/09/2019 9:26 am REASON FOR STUDY: r/o acute cholecystitis I50.42 CHRONIC COMBINED SYSTOLIC AND DIASTOLIC HRT FAIL COMPARISON: Ultrasound dated 09/08/2019 RADIONUCLIDE AND DOSE: DOSAGE RADIONUCLIDE: 5.50 millicuries Tc99m Mebrofenin. DOSAGE MORPHINE: Not required. The route of agent administration: Intravenous TECHNIQUE: Serial imaging right upper quadrant up to 60 minutes following injection of radionuclide. Patient imaged AP and Right Lateral. LIMITATIONS: None. FINDINGS: LIVER: Normal visualization without areas of photopenia. INTRA-HEPATIC BILE DUCTS: Temporal visualization normal. No dilatation. COMMON BILE DUCT: Normal without dilatation or delayed visualization. GALLBLADDER: Normal visualization. OTHER: No other significant finding. IMPRESSION: NORMAL STUDY WITHOUT CYSTIC OR COMMON DUCT OBSTRUCTION. TECHNICAL DOCUMENTATION: JOB ID: [id number] [employer]- All Rights Reserved Reading location - IP/workstation name: [email or web address]
[2019-09-09 14:09] LABS: PROTHROMBIN TIME 17.3 SEC (11.4-15.4)
--- NOTE | 2019-09-09 15:47 | PDOC PROGRESS REPORT ---
Subjective Progress Note for:: 09/09/19 Subjective:: pains RUQ Reason For Visit: ?CHOLECYSTITIS,CHRONIC SYSTOLIC HEART FAILURE Physical Exam Vital Signs: Temp Pulse Resp BP Pulse Ox 98.4 F 80 20 96/41 L 100 09/09/19 10:49 09/09/19 10:49 09/09/19 10:49 09/09/19 10:49 09/09/19 10:49 Intake & Output 09/08/19 09/09/19 09/10/19 06:59 06:59 06:59 Intake Total 50 0 Output Total 400 0 Balance -350 0 Weight 111.13 kg 111.5 kg Results Laboratory Results: 09/09/19 04:12 09/09/19 04:12 09/08/19 09/09/19 09/09/19 22:37 04:12 04:12 WBC 4.2 RBC 4.58 Hgb 12.3 Hct 38.6 MCV 84 MCH 26.9 L MCHC 31.9 L RDW 18.5 H Plt Count 243 Sodium 136.1 L 139.7 Potassium 3.9 3.5 L Chloride 104 107 Carbon Dioxide 22 24 Anion Gap 10 9 BUN 43 H 44 H Creatinine 2.14 H 2.29 H Est GFR ( Amer) 30 L 28 L Glucose 169 H 106 Calcium 7.8 L 7.7 L Total Bilirubin 0.4 0.5 AST 18 26 Alkaline Phosphatase 110 116 Total Protein 4.5 L 4.9 L Albumin 2.2 L 2.4 L 09/08/19 09/08/19 09/08/19 01:08 09:55 09:55 Creatine Kinase 339 H CK-MB (CK-2) 5.41 H 6.19 H Troponin I 0.050 0.077 NT-Pro-B Natriuret Pep [id number] H 09/08/19 09/08/19 09/08/19 14:51 14:57 20:13 Creatine Kinase 336 H 305 H CK-MB (CK-2) 5.64 H Troponin I 0.063 NT-Pro-B Natriuret Pep 09/08/19 20:13 Creatine Kinase CK-MB (CK-2) 5.31 H Troponin I 0.053 NT-Pro-B Natriuret Pep Impressions: Abdomen Ultrasound 09/08/19 03:19 IMPRESSION: Thickening of the gallbladder wall. Acute cholecystitis is not excluded. Hepatobiliary Scan Nuclear Medicine 09/09/19 00:00 IMPRESSION: NORMAL STUDY WITHOUT CYSTIC OR COMMON DUCT OBSTRUCTION. Assessment & Plan - Diagnosis (1) Abdominal pain Qualifiers: Abdominal location: right upper quadrant Qualified Code(s): R10.11 - Right upper quadrant pain Is this a current diagnosis for this admission?: Yes (2) Chronic kidney disease Qualifiers: Chronic kidney disease stage: unspecified stage Qualified Code(s): N18.9 - Chronic kidney disease, unspecified Is this a current diagnosis for this admission?: Yes (3) Acute combined systolic (congestive) and diastolic (congestive) heart failure Is this a current diagnosis for this admission?: Yes (4) Chest pain Qualifiers: Chest pain type: unspecified Qualified Code(s): R07.9 - Chest pain, unspecified Is this a current diagnosis for this admission?: Yes (5) Morbid obesity Is this a current diagnosis for this admission?: Yes - Time Time Spent with patient: Less than 15 minutes - Plan Summary Plan Summary: HIDA SCAN is normal. No acute cholecystitis. Thickening of gallbladder wall due to CHF. Surgery will sign off.
--- NOTE | 2019-09-09 15:54 | RADIOLOGY REPORT (SQ) ---
EXAM DESCRIPTION: CHEST SINGLE VIEW COMPLETED DATE/TIME: 09/09/2019 3:44 pm REASON FOR STUDY: POST THORA ON RIGHT COMPARISON: 09/08/2019 EXAM PARAMETERS: NUMBER OF VIEWS: One view. TECHNIQUE: Single frontal radiographic view of the chest acquired. RADIATION DOSE: NA LIMITATIONS: None. FINDINGS: LUNGS AND PLEURA: No pneumothorax following right-sided thoracentesis. Pleural effusion i s significantly smaller in size. MEDIASTINUM AND HILAR STRUCTURES: No masses. Contour normal. HEART AND VASCULAR STRUCTURES: Heart remains enlarged. Mild central vascular prominence. BONES: No acute findings. HARDWARE: Battery pack and leads remain in place. OTHER: No other significant finding. IMPRESSION: No pneumothorax following right-sided thoracentesis. TECHNICAL DOCUMENTATION: JOB ID: [id number] [employer]- All Rights Reserved Reading location - IP/workstation name: [email or web address]
--- NOTE | 2019-09-09 15:55 | RADIOLOGY REPORT (SQ) ---
EXAM DESCRIPTION: U/S THORACENTESIS WITH IMAGING COMPLETED DATE/TIME: 09/09/2019 3:43 pm REASON FOR STUDY: pleural effusion I50.42 CHRONIC COMBINED SYSTOLIC AND DIASTOLIC HRT FAIL I26.99 OTHER PULMONARY EMBOLISM WITHOUT ACUTE COR PULMONALE COMPARISON: 04/26/2018 RADIATION DOSE: None. LIMITATIONS: None. PROCEDURE: Procedure, risks, benefit, and alternative explained to patient who then gave written con sent. The posterior right chest wall was marked using ultrasound guidance. A time-out was called fo r correct marking verification. Chest prepped and draped using sterile technique. Local anesthesia a chieved using 10 ml of 1% lidocaine injection. A 6fr Safe-T- Centesis set was introduced into the [facility] pleural space. Fluid was aspirated. The catheter was removed and the entry site was covered wit h sterile bandage. No immediate complications noted. Images acquired during the procedure were stored on PACS. FINDINGS: ENTRY SITE: posterior right chest. FLUID VOLUME: 400 mL FLUID ANALYSIS: Clear, straw-colored. OTHER: Fluid sent to the lab for testing. IMPRESSION: SUCCESSFUL RIGHT THORACENTESIS USING ULTRASOUND GUIDANCE. COMMENT: Patient medication list reviewed: Yes- Quality ID# [id number]:Eligible professional attests to doc umenting in the medical record they obtained, updated, or reviewed the patient's current medications. TECHNICAL DOCUMENTATION: JOB ID: [id number] [employer]- All Rights Reserved Reading location - IP/workstation name: [email or web address]
[2019-09-09 17:36] LABS: FLUID APPEARANCE CLEAR; FLUID COLOR STRAW; FLUID SOURCE LUNG; FLUID TYPE PLEURAL
[2019-09-09 17:37] LABS: FLUID VISCOSITY LIQUID
--- NOTE | 2019-09-09 18:01 | RADIOLOGY REPORT (SQ) ---
EXAM DESCRIPTION: CHEST SINGLE VIEW COMPLETED DATE/TIME: 09/09/2019 5:52 pm REASON FOR STUDY: POST THORA ON RIGHT COMPARISON: 09/09/2019 earlier. FINDINGS: Single-view chest 2 hours status post thoracentesis. Cardiomegaly. Diminished basilar aeration, unchanged. No overt pneumothorax. Pacer in place. TECHNICAL DOCUMENTATION: JOB ID: [id number] Reading location - IP/workstation name: [email or web address]
--- NOTE | 2019-09-09 18:04 | PDOC PROGRESS REPORT ---
Subjective Progress Note for:: 09/09/19 Subjective:: epigastric and RUQ pains Reason For Visit: ?CHOLECYSTITIS,CHRONIC SYSTOLIC HEART FAILURE Physical Exam Vital Signs: Temp Pulse Resp BP Pulse Ox 98.2 F 83 18 129/46 H 100 09/09/19 16:42 09/09/19 16:42 09/09/19 16:42 09/09/19 16:42 09/09/19 16:42 Intake & Output 09/08/19 09/09/19 09/10/19 06:59 06:59 06:59 Intake Total 50 480 Output Total 400 200 Balance -350 280 Weight 111.13 kg 111.5 kg Exam: Abdomen is soft with mild tenderness RUQ Results Laboratory Results: 09/09/19 04:12 09/09/19 04:12 09/08/19 09/09/19 09/09/19 22:37 04:12 04:12 WBC 4.2 RBC 4.58 Hgb 12.3 Hct 38.6 MCV 84 MCH 26.9 L MCHC 31.9 L RDW 18.5 H Plt Count 243 Sodium 136.1 L 139.7 Potassium 3.9 3.5 L Chloride 104 107 Carbon Dioxide 22 24 Anion Gap 10 9 BUN 43 H 44 H Creatinine 2.14 H 2.29 H Est GFR ( Amer) 30 L 28 L Glucose 169 H 106 Calcium 7.8 L 7.7 L Total Bilirubin 0.4 0.5 AST 18 26 Alkaline Phosphatase 110 116 Total Protein 4.5 L 4.9 L Albumin 2.2 L 2.4 L Fluid Type Fluid Source Fluid Color Fluid Appearance Fluid Viscosity Fluid WBC Fluid RBC 09/09/19 15:30 WBC RBC Hgb Hct MCV MCH MCHC RDW Plt Count Sodium Potassium Chloride Carbon Dioxide Anion Gap BUN Creatinine Est GFR ( Amer) Glucose Calcium Total Bilirubin AST Alkaline Phosphatase Total Protein Albumin Fluid Type PLEURAL Fluid Source LUNG Fluid Color STRAW Fluid Appearance CLEAR Fluid Viscosity LIQUID Fluid WBC 11 Fluid RBC 477 09/08/19 09/08/19 09/08/19 01:08 09:55 09:55 Creatine Kinase 339 H CK-MB (CK-2) 5.41 H 6.19 H Troponin I 0.050 0.077 NT-Pro-B Natriuret Pep 15313 H 09/08/19 09/08/19 09/08/19 14:51 14:57 20:13 Creatine Kinase 336 H 305 H CK-MB (CK-2) 5.64 H Troponin I 0.063 NT-Pro-B Natriuret Pep 09/08/19 20:13 Creatine Kinase CK-MB (CK-2) 5.31 H Troponin I 0.053 NT-Pro-B Natriuret Pep Impressions: Abdomen Ultrasound 09/08/19 03:19 IMPRESSION: Thickening of the gallbladder wall. Acute cholecystitis is not excluded. Hepatobiliary Scan Nuclear Medicine 09/09/19 00:00 IMPRESSION: NORMAL STUDY WITHOUT CYSTIC OR COMMON DUCT OBSTRUCTION. Thoracentesis Ultrasound 09/09/19 08:00 IMPRESSION: SUCCESSFUL RIGHT THORACENTESIS USING ULTRASOUND GUIDANCE. Assessment & Plan - Diagnosis (1) Abdominal pain Qualifiers: Abdominal location: right upper quadrant Qualified Code(s): R10.11 - Right upper quadrant pain Is this a current diagnosis for this admission?: Yes (2) Chronic kidney disease Qualifiers: Chronic kidney disease stage: stage 3 (moderate) Qualified Code(s): N18.3 - Chronic kidney disease, stage 3 (moderate) Is this a current diagnosis for this admission?: Yes (3) Acute combined systolic (congestive) and diastolic (congestive) heart failure Is this a current diagnosis for this admission?: Yes (4) Chest pain Qualifiers: Chest pain type: unspecified Qualified Code(s): R07.9 - Chest pain, unspecified Is this a current diagnosis for this admission?: Yes (5) Morbid obesity Is this a current diagnosis for this admission?: Yes - Time Time Spent with patient: Less than 15 minutes - Inpatient Certification Medical Necessity: Need Close Monitoring Due to Risk of Patient Decompensation, Need for Surgery - Plan Summary Plan Summary: Dr. Workman requests surgery to do an EGD because of chronic epigastric and right upper quadrant pains within normal scan. We will keep the patient n.p.o. from midnight and asked Dr. Alexandra to do an EGD tomorrow
[2019-09-09 19:15] LABS: HEMATOCRIT 39.5 % (36.0-47.0); HEMOGLOBIN 12.4 g/dL (12.0-15.5); MEAN CORPUSCULAR HEMOGLOBIN 26.4 pg (27.0-33.4); MEAN CORPUSCULAR HGB CONC 31.3 g/dL (32.0-36.0); MEAN CORPUSCULAR VOLUME 84 fl (80-97); PLATELET COUNT 285 10^3/uL (150-450); RED BLOOD COUNT 4.68 10^6/uL (3.72-5.28); RED CELL DISTRIBUTION WIDTH 18.5 % (11.5-14.0); WHITE BLOOD COUNT 4.4 10^3/uL (4.0-10.5)
--- NOTE | 2019-09-09 20:52 | PDOC PROGRESS REPORT ---
Subjective Progress Note for:: 09/09/19 Subjective:: She continues to have epigastric pain, the HIDA scan is normal suggesting that the pain is not from acute cholecystitis, she had this problem previously she was evaluated in the same fashion HIDA scan was negative but she never had upper endoscopy done, she refused to go home she wants to know the etiology of this pain that has been ongoing since April ,again as indicated she has never had upper endoscopy done I spoke to the surgicalist about her case ,he advised that Dr. Alexandra may do upper endoscopy tomorrow she will be put on the list she will be kept n.p.o. past midnight Reason For Visit: ?CHOLECYSTITIS,CHRONIC SYSTOLIC HEART FAILURE Physical Exam Vital Signs: Temp Pulse Resp BP Pulse Ox 98.2 F 83 18 129/46 H 100 09/09/19 16:42 09/09/19 16:42 09/09/19 16:42 09/09/19 16:42 09/09/19 16:42 Intake & Output 09/08/19 09/09/19 09/10/19 06:59 06:59 06:59 Intake Total 50 480 Output Total 400 200 Balance -350 280 Weight 111.13 kg 111.5 kg General appearance: PRESENT: no acute distress Eye exam: PRESENT: PERRLA Respiratory exam: PRESENT: clear to auscultation abdi Cardiovascular exam: PRESENT: +S1, +S2 GI/Abdominal exam: PRESENT: soft Neurological exam: PRESENT: alert Results Laboratory Results: 09/09/19 19:05 09/09/19 04:12 09/08/19 09/09/19 09/09/19 22:37 04:12 04:12 WBC 4.2 RBC 4.58 Hgb 12.3 Hct 38.6 MCV 84 MCH 26.9 L MCHC 31.9 L RDW 18.5 H Plt Count 243 Sodium 136.1 L 139.7 Potassium 3.9 3.5 L Chloride 104 107 Carbon Dioxide 22 24 Anion Gap 10 9 BUN 43 H 44 H Creatinine 2.14 H 2.29 H Est GFR ( Amer) 30 L 28 L Glucose 169 H 106 Calcium 7.8 L 7.7 L Total Bilirubin 0.4 0.5 AST 18 26 Alkaline Phosphatase 110 116 Total Protein 4.5 L 4.9 L Albumin 2.2 L 2.4 L Fluid Type Fluid Source Fluid Color Fluid Appearance Fluid Viscosity Fluid WBC Fluid RBC 09/09/19 09/09/19 15:30 19:05 WBC 4.4 RBC 4.68 Hgb 12.4 Hct 39.5 MCV 84 MCH 26.4 L MCHC 31.3 L RDW 18.5 H Plt Count 285 Sodium Potassium Chloride Carbon Dioxide Anion Gap BUN Creatinine Est GFR ( Amer) Glucose Calcium Total Bilirubin AST Alkaline Phosphatase Total Protein Albumin Fluid Type PLEURAL Fluid Source LUNG Fluid Color STRAW Fluid Appearance CLEAR Fluid Viscosity LIQUID Fluid WBC 11 Fluid RBC 477 09/08/19 09/08/19 09/08/19 01:08 09:55 09:55 Creatine Kinase 339 H CK-MB (CK-2) 5.41 H 6.19 H Troponin I 0.050 0.077 NT-Pro-B Natriuret Pep [id number] H 09/08/19 09/08/19 09/08/19 14:51 14:57 20:13 Creatine Kinase 336 H 305 H CK-MB (CK-2) 5.64 H Troponin I 0.063 NT-Pro-B Natriuret Pep 09/08/19 20:13 Creatine Kinase CK-MB (CK-2) 5.31 H Troponin I 0.053 NT-Pro-B Natriuret Pep Impressions: Abdomen Ultrasound 09/08/19 03:19 IMPRESSION: Thickening of the gallbladder wall. Acute cholecystitis is not excluded. Hepatobiliary Scan Nuclear Medicine 09/09/19 00:00 IMPRESSION: NORMAL STUDY WITHOUT CYSTIC OR COMMON DUCT OBSTRUCTION. Thoracentesis Ultrasound 09/09/19 08:00 IMPRESSION: SUCCESSFUL RIGHT THORACENTESIS USING ULTRASOUND GUIDANCE. Assessment & Plan - Diagnosis (1) Abdominal pain Qualifiers: Abdominal location: right upper quadrant Qualified Code(s): R10.11 - Right upper quadrant pain Is this a current diagnosis for this admission?: Yes Plan: consult surgery (2) Chronic combined systolic and diastolic CHF (congestive heart failure) Is this a current diagnosis for this admission?: Yes - Time Time Spent with patient: 15-24 minutes
[2019-09-09] MEDS: ZOLPIDEM TARTRATE 5 MG TABLET PO SCH (23:22)
[2019-09-09] MEDS: WARFARIN SODIUM 5 MG TABLET PO SCH (23:22)
[2019-09-09] MEDS: MORPHINE SULFATE 10 MG/ML INJ IV PRN (23:23)
[2019-09-09] MEDS: ATORVASTATIN CALCIUM 80 MG TABLET PO SCH (23:23)
[2019-09-09] MEDS: DIPHENHYDRAMINE HCL 50 MG/ML VIAL IV PRN (23:24)
[2019-09-10 05:03] LABS: HEMATOCRIT 38.6 % (36.0-47.0); HEMOGLOBIN 12.3 g/dL (12.0-15.5); MEAN CORPUSCULAR HEMOGLOBIN 26.5 pg (27.0-33.4); MEAN CORPUSCULAR HGB CONC 31.8 g/dL (32.0-36.0); MEAN CORPUSCULAR VOLUME 84 fl (80-97); PLATELET COUNT 261 10^3/uL (150-450); RED BLOOD COUNT 4.62 10^6/uL (3.72-5.28); RED CELL DISTRIBUTION WIDTH 18.3 % (11.5-14.0); WHITE BLOOD COUNT 5.6 10^3/uL (4.0-10.5)
[2019-09-10] MEDS: ISOSORBIDE MONONITRATE 30 MG TAB.ER.24H PO SCH ×3 (06:55→22:30)
[2019-09-10] MEDS: DOCUSATE SODIUM 100 MG CAPSULE PO SCH ×3 (06:56→22:29)
[2019-09-10] MEDS: FUROSEMIDE 80 MG TABLET PO SCH ×3 (06:56→22:28)
[2019-09-10] MEDS: PANTOPRAZOLE SODIUM 40 MG TABLET.DR PO SCH (06:56)
[2019-09-10 08:07] LABS: INTERNATIONAL RATION (INR) 1.36; PROTHROMBIN TIME 16.9 SEC (11.4-15.4)
--- NOTE | 2019-09-10 09:50 | PDOC PROGRESS REPORT ---
Subjective Progress Note for:: 09/10/19 Subjective:: Patient is scheduled for the endoscopy today Patient is seen by the general surgery for the gallbladder issue with a thickening of the gallbladder and suggest most likely coming from the chronic CHF patient HIDA scan is all negative's Patient is not seen any cardiology here patient used to see the cardiology and defibrillator placement [place] but not locally seen here Reason For Visit: ?CHOLECYSTITIS,CHRONIC SYSTOLIC HEART FAILURE Physical Exam Vital Signs: Temp Pulse Resp BP Pulse Ox 97.4 F 78 18 116/79 100 09/10/19 08:21 09/10/19 07:05 09/10/19 08:21 09/10/19 08:21 09/10/19 08:21 Intake & Output 09/09/19 09/10/19 09/11/19 06:59 06:59 06:59 Intake Total 50 740 Output Total 400 550 Balance -350 190 Weight 111.5 kg 113.5 kg General appearance: PRESENT: no acute distress, well-developed, well-nourished Head exam: PRESENT: atraumatic, normocephalic Eye exam: PRESENT: conjunctiva pink, EOMI, PERRLA. ABSENT: scleral icterus Ear exam: PRESENT: normal external ear exam Mouth exam: PRESENT: moist, tongue midline Neck exam: PRESENT: full ROM. ABSENT: carotid bruit, JVD, lymphadenopathy, thyromegaly Respiratory exam: PRESENT: clear to auscultation abdi Cardiovascular exam: PRESENT: RRR. ABSENT: diastolic murmur, rubs, systolic murmur Pulses: PRESENT: normal dorsalis pedis pul, +2 pedal pulses bilateral Vascular exam: PRESENT: normal capillary refill GI/Abdominal exam: PRESENT: normal bowel sounds, soft. ABSENT: distended, guarding, mass, organolmegaly, rebound, tenderness Rectal exam: PRESENT: deferred Extremities exam: PRESENT: pedal edema Musculoskeletal exam: PRESENT: ambulatory Neurological exam: PRESENT: alert, awake, oriented to person, oriented to place, oriented to time, oriented to situation, CN II-XII grossly intact. ABSENT: motor sensory deficit Psychiatric exam: PRESENT: appropriate affect, normal mood. ABSENT: homicidal ideation, suicidal ideation Skin exam: PRESENT: dry, intact, warm. ABSENT: cyanosis, rash Results Laboratory Results: 09/10/19 04:25 09/09/19 04:12 09/09/19 09/09/19 09/10/19 15:30 19:05 04:25 WBC 4.4 5.6 RBC 4.68 4.62 Hgb 12.4 12.3 Hct 39.5 38.6 MCV 84 84 MCH 26.4 L 26.5 L MCHC 31.3 L 31.8 L RDW 18.5 H 18.3 H Plt Count 285 261 Fluid Type PLEURAL Fluid Source LUNG Fluid Color STRAW Fluid Appearance CLEAR Fluid Viscosity LIQUID Fluid WBC 11 Fluid RBC 477 09/08/19 09/08/19 09/08/19 01:08 09:55 09:55 Creatine Kinase 339 H CK-MB (CK-2) 5.41 H 6.19 H Troponin I 0.050 0.077 NT-Pro-B Natriuret Pep [id number] H 09/08/19 09/08/19 09/08/19 14:51 14:57 20:13 Creatine Kinase 336 H 305 H CK-MB (CK-2) 5.64 H Troponin I 0.063 NT-Pro-B Natriuret Pep 09/08/19 20:13 Creatine Kinase CK-MB (CK-2) 5.31 H Troponin I 0.053 NT-Pro-B Natriuret Pep Impressions: Abdomen Ultrasound 09/08/19 03:19 IMPRESSION: Thickening of the gallbladder wall. Acute cholecystitis is not excluded. Hepatobiliary Scan Nuclear Medicine 09/09/19 00:00 IMPRESSION: NORMAL STUDY WITHOUT CYSTIC OR COMMON DUCT OBSTRUCTION. Thoracentesis Ultrasound 09/09/19 08:00 IMPRESSION: SUCCESSFUL RIGHT THORACENTESIS USING ULTRASOUND GUIDANCE. Assessment & Plan - Diagnosis (1) Abdominal pain Qualifiers: Abdominal location: right upper quadrant Qualified Code(s): R10.11 - Right upper quadrant pain Is this a current diagnosis for this admission?: Yes Plan: Patient is currently seen by the surgery scheduled for the endoscopy (2) Chronic combined systolic and diastolic CHF (congestive heart failure) Is this a current diagnosis for this admission?: Yes Plan: Is currently taking Lasix 80 mg p.o. nightly I think patients get a benefit to see the cardiology locally here we will consult Dr. SCHNEIDER (3) Chronic kidney disease Qualifiers: Chronic kidney disease stage: stage 3 (moderate) Qualified Code(s): N18.3 - Chronic kidney disease, stage 3 (moderate) Is this a current diagnosis for this admission?: Yes (4) Cardiomyopathy Qualifiers: Cardiomyopathy type: ischemic Qualified Code(s): I25.5 - Ischemic cardiomyopathy Is this a current diagnosis for this admission?: Yes (5) Cardiorenal syndrome Qualifiers: Heart failure presence: with heart failure Hypertensive chronic kidney disease stage: stage 1-4 or unspecified chronic kidney disease Qualified Code(s): I13.0 - Hypertensive heart and chronic kidney disease with heart failure and stage 1 through stage 4 chronic kidney disease, or unspecified chronic kidney disease Is this a current diagnosis for this admission?: Yes - Time Time Spent with patient: 25-34 minutes Level of Care: IMCU Medications reviewed and adjusted accordingly: Yes Anticipated discharge: Other Within: Other - Plan Summary Plan Summary: Continues to current medications I think patients needs to be evaluated by cardiology with ongoing anasarca
[2019-09-10] MEDS: CARVEDILOL 12.5 MG TABLET PO SCH ×2 (11:53→22:29)
[2019-09-10] MEDS: LUBIPROSTONE 24 MCG CAPSULE PO SCH ×2 (11:53→22:30)
[2019-09-10] MEDS: CALCITRIOL 0.25 MCG CAPSULE PO SCH (11:54)
[2019-09-10] MEDS: ALLOPURINOL 100 MG TABLET PO SCH (11:54)
[2019-09-10] MEDS: FERROUS SULFATE 325 MG TABLET PO SCH (11:54)
[2019-09-10] MEDS: AMLODIPINE BESYLATE 10 MG TABLET PO SCH (11:54)
[2019-09-10] MEDS: MEDROXYPROGESTERONE ACET 10 MG TABLET PO SCH (11:55)
[2019-09-10] MEDS: SACUBITRIL/VALSARTAN 97 MG/103 MG TABLET PO SCH ×2 (11:55→22:33)
--- NOTE | 2019-09-10 14:11 | PDOC PROGRESS REPORT ---
Subjective Progress Note for:: 09/10/19 Subjective:: Patient still having abdominal pain, nonlocalized. She expresses her frustration with not knowing what is going on with her, and multiple pain is regarding the etiology of her abdominal. Patient was found by gallbladder ultrasound to have gallstones and a gallbladder wall thickness of 11 mm. HIDA scan was. Patient has history of known gallstones. She also has a remote history of ulcers. She is 8 years status post gastric bypass procedure per her recollection, [place]. Postoperatively patient developed DVT lower extremity and has been on Coumadin since. Her abdominal pain is nonlocalized. Patient kept n.p.o. for planned EGD Reason For Visit: ?CHOLECYSTITIS,CHRONIC SYSTOLIC HEART FAILURE Physical Exam Vital Signs: Temp Pulse Resp BP Pulse Ox 97.4 F 78 18 116/79 100 09/10/19 08:21 09/10/19 07:05 09/10/19 08:21 09/10/19 08:21 09/10/19 08:21 Intake & Output 09/09/19 09/10/19 09/11/19 06:59 06:59 06:59 Intake Total 50 740 Output Total 400 550 Balance -350 190 Weight 111.5 kg 113.5 kg General appearance: PRESENT: no acute distress GI/Abdominal exam: PRESENT: other - Abdomen examined. Morbidly obese. Multiple scars consistent with previous surgery. There is some epigastric tenderness to deep palpation, but no wang peritoneal signs. Results Laboratory Results: 09/10/19 04:25 09/09/19 04:12 09/09/19 09/09/19 09/10/19 15:30 19:05 04:25 WBC 4.4 5.6 RBC 4.68 4.62 Hgb 12.4 12.3 Hct 39.5 38.6 MCV 84 84 MCH 26.4 L 26.5 L MCHC 31.3 L 31.8 L RDW 18.5 H 18.3 H Plt Count 285 261 Fluid Type PLEURAL Fluid Source LUNG Fluid Color STRAW Fluid Appearance CLEAR Fluid Viscosity LIQUID Fluid WBC 11 Fluid RBC 477 09/08/19 09/08/19 09/08/19 01:08 09:55 09:55 Creatine Kinase 339 H CK-MB (CK-2) 5.41 H 6.19 H Troponin I 0.050 0.077 NT-Pro-B Natriuret Pep [id number] H 09/08/19 09/08/19 09/08/19 14:51 14:57 20:13 Creatine Kinase 336 H 305 H CK-MB (CK-2) 5.64 H Troponin I 0.063 NT-Pro-B Natriuret Pep 09/08/19 20:13 Creatine Kinase CK-MB (CK-2) 5.31 H Troponin I 0.053 NT-Pro-B Natriuret Pep Impressions: Abdomen Ultrasound 09/08/19 03:19 IMPRESSION: Thickening of the gallbladder wall. Acute cholecystitis is not excluded. Hepatobiliary Scan Nuclear Medicine 09/09/19 00:00 IMPRESSION: NORMAL STUDY WITHOUT CYSTIC OR COMMON DUCT OBSTRUCTION. Thoracentesis Ultrasound 09/09/19 08:00 IMPRESSION: SUCCESSFUL RIGHT THORACENTESIS USING ULTRASOUND GUIDANCE. Assessment & Plan - Diagnosis (1) Abdominal pain Qualifiers: Abdominal location: right upper quadrant Qualified Code(s): R10.11 - Right upper quadrant pain Is this a current diagnosis for this admission?: Yes Plan: Impression: Chronic abdominal pain, etiology determined; work-up for cholecystitis mistreated normal HIDA scan. Patient not septic. Do not recommend interval cholecystectomy at this time. Recommendations: 1. Explained to patient why multiple opinions have been expressed regarding the etiology of abdominal pain. Possible she is suffering from a marginal ulcer status post Ni-en-Y gastric bypass. She could also have an ulcer of her bypassed stomach remnant. I dillon pictures of her presumed anatomy, and explained the above. 2. Patient would like to proceed with EGD, possible biopsy today. 3. I have discussed with patient care team, and anesthesiologist patient's risks of undergoing any anesthesia secondary to chronic cardiomyopathy, coronary artery disease, history of pacer defibrillator placement. Patient's jordan worker is in [place]. I did personally phone Dr.Anil Vargas from [facility] cardiology, who will see patient in consultation and render an opinion regarding patient's suitability for LMAC anesthesia. - Time Time Spent with patient: 15-24 minutes
[2019-09-10] MEDS: DIPHENHYDRAMINE HCL 50 MG/ML VIAL IV PRN (14:18)
[2019-09-10] MEDS: MORPHINE SULFATE 10 MG/ML INJ IV PRN ×2 (14:24→22:20)
--- NOTE | 2019-09-10 16:20 | XCELERA REPORT ---
[address] [address] Transthoracic Echocardiogram Report Name: BERONICA YEUNG Age: 44 yrs Gender: Female : 1975 Patient Status: Inpatient Patient Location: [address] [place] [address] Study Date: 09/10/2019 02:27 PM History: Dilated Cardiomyopathy Height: 68 in Weight: 250 lb BSA: 2.2 m2 Procedure: A complete two-dimensional transthoracic echocardiogram was performed (2D, M-mode, spectral and color flow Doppler). The study was technically difficult with many images being suboptimal in quality. 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 Obesity. CAD. Ordering Physician: BHUPENDRA HARDWICK Performed By: Yesenia Manzano Interpretation Summary Left ventricular systolic function is moderate to severely reduced. The Ejection Fraction estimate is 20-25% The right ventricular systolic function is moderately reduced. There is a moderate amount of mitral regurgitation There is a moderate amount of tricuspid regurgitation There is servere pulmonary hypertension by echo Minimal pericardial effusion. Compared to prior study dated 05/18/2019 no significant improvement in LV funciton is seen. MMode/2D Measurements & Calculations RVDd: 3.8 cm LVIDd: 6.5 cm FS: 9.6 % Ao root diam: 2.5 cm IVSd: 0.88 cm LVIDs: 5.8 cm EDV(Teich): LVPWd: 0.93 cm 213.2 ml Ao root area: ESV(Teich): 4.9 cm2 169.3 ml LA dimension: EF(Teich): 20.6 % 5.0 cm LVLd ap4: 9.3 cm SV(MOD-sp4): EDV(MOD-sp4): 28.0 ml 194.0 ml LVLs ap4: 8.7 cm ESV(MOD-sp4): 166.0 ml EF(MOD-sp4): 14.4 % Doppler Measurements & Calculations MV E max summer: MV P1/2t max summer: Ao V2 max: LV V1 max P.4 cm/sec 84.4 cm/sec 117.1 cm/sec 3.0 mmHg MV A max summer: MV P1/2t: 55.6 msec Ao max PG: LV V1 max: 95.8 cm/sec MVA(P1/2t): 4.0 cm2 5.5 mmHg 86.9 cm/sec MV E/A: 0.88 MV dec slope: 444.4 cm/sec2 MV dec time: 0.17 sec PA V2 max: PI end-d summer: TR max summer: MV P1/2t-pr_phl: 70.6 cm/sec 187.3 cm/sec 346.1 cm/sec 55.6 msec PA max PG: TR max P.0 mmHg 47.9 mmHg Left Ventricle The left ventricle is moderately to severly dilated. There is mild concentric left ventricular hypertrophy. Left ventricular systolic function is moderate to severely reduced. The Ejection Fraction estimate is 20-25%. Doppler measurements suggest impaired left ventricular relaxation, which is associated with grade I/IV or mild diastolic dysfunction. There is moderate to severe global hypokinesis of the left ventricle. Right Ventricle There is a pacemaker lead in the right ventricle. The right ventricle is moderate to severely dilated. The right ventricular systolic function is moderately reduced. Atria There is a catheter/pacemaker lead seen in the right atrium. The right atrium is mild to moderately dilated. Mitral Valve The mitral valve is grossly normal. There is no mitral valve stenosis. There is a moderate amount of mitral regurgitation. Aortic Valve The aortic valve is trileaflet. The aortic valve opens well. The aortic valve is normal in structure and function. There is no aortic valve stenosis. No aortic regurgitation is present. Tricuspid Valve The tricuspid valve is normal in structure and function. There is no tricuspid stenosis. There is a moderate amount of tricuspid regurgitation. There is servere pulmonary hypertension by echo. Pulmonic Valve The pulmonic valve is normal in structure and function. There is no pulmonic valvular stenosis. There is a trace or physiologic amount of pulmonic regurgitation. Great Vessels The aortic root is normal size. The inferior vena cava appeared dilated and did not change with respiration (RAP > 20 mmHg). Effusions Minimal pericardial effusion. : BHUPENDRA HARDWICK Anil
--- NOTE | 2019-09-10 16:40 | PDOC CONSULTATION ---
Consultation Consult Date: 09/10/19 Provider Consulted: BHUPENDRA HARDWICK Consult reason:: Preoperative evaluation prior to endoscopy, congestive heart failure History of Present Illness Admission Date/PCP: 09/10/19 10:57 VU GUZMAN MD Patient complains of: Abdominal pain History of Present Illness: BERONICA YEUNG is a 44 year old female With the following active problems 1. 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 Dilated cardiomyopathy-mixed etiology 3. Coronary artery disease 4. Left-sided Medtronic biventricular ICD 02/26/2018 5. DVT 6. Pulmonary embolism 7. Warfarin anticoagulation 8. Systemic hypertension 9. Obesity 10. Status post gastric bypass surgery 11. Severe pulmonary hypertension 42-year-old lady who has been admitted to the hospital with complaints of chronic abdominal pain. There was concern of cholecystitis however ultrasound imaging test showed gallbladder thickening. She reports a history of gastric bypass surgery and there is a consideration of ulceration and other abdominal symptoms which have led to endoscopy being considered. However patient is significant cardiac history as mentioned above. My conversation with the patient patient has been compliant with her medications and reports no recent heart failure exacerbation. Since admission she had thoracentesis done from the right chest which yielded approximately 400 mL of straw-colored fluid. In terms of her symptoms she appears to be her baseline. Her prior echocardiogram in April 2019 showed severely diminished left ventricular ejection fraction estimated at 15%. She reports no ICD shocks. Past Medical History Cardiac Medical History: Reports: Congestive Heart Failure - Chronic systolic and diastolic heart failure, Coronary Artery Disease, Myocardial Infarction - STENTS/DEFIBRILLATOR/PACEMAKER, Hypertension, Pulmonary Embolism Pulmonary Medical History: Reports: Chronic Obstructive Pulmonary Disease (COPD), Pneumonia Denies: Asthma, Bronchitis, Tuberculosis Neurological Medical History: Denies: Seizures Endocrine Medical History: Reports: Diabetes Mellitus Type 2 - non compliant (pt has snacks in her suitcase etc) GI Medical History: Reports: Gastroesophageal Reflux Disease Musculoskeltal Medical History: Denies: Arthritis Psychiatric Medical History: Reports: Depression Hematology: Reports: Anemia Past Surgical History Past Surgical History: Reports: Cardiac Catheterization - stent x1, Coronary Stent, Internal Defibrillator, Other - Left-sided biventricular Medtronic defibrillator 02/26/2018, Lui Milner Denies: Hysterectomy Social History Smoking Status: Never Smoker Electronic Cigarette use?: No Frequency of Alcohol Use: None Hx Recreational Drug Use: No Drugs: None Hx Prescription Drug Abuse: No Family History Family History: None, Reviewed & Not Pertinent, Hypertension Parental Family History Reviewed: Yes - No familial illnesses chronical Children Family History Reviewed: NA Sibling(s) Family History Reviewed.: NA Medication/Allergy Home Medications: Allopurinol [Zyloprim 100 mg Tablet] 100 mg PO DAILY 09/08/19 Amlodipine Besylate [Norvasc 10 mg Tablet] 10 mg PO DAILY 09/08/19 Atorvastatin Calcium [Lipitor 80 mg Tablet] 80 mg PO QHS 09/08/19 Calcitriol [Rocaltrol 0.25 Mcg Capsule] 0.25 mcg PO DAILY 09/08/19 Carvedilol [Coreg 12.5 mg Tablet] 12.5 mg PO Q12 09/08/19 Docusate Sodium [Colace] 50 mg PO Q8 09/08/19 Ferrous Sulfate [Feosol 325 mg Tablet] 325 mg PO DAILY 09/08/19 Furosemide [Lasix 80 mg Tablet] 80 mg PO Q8 09/08/19 Isosorbide Mononitrate [Imdur 30 mg Tablet.er] 60 mg PO Q8 09/08/19 Lubiprostone [Amitiza 24 Mcg Capsule] 24 mcg PO Q12 09/08/19 Medroxyprogesterone Acet [Provera 10 Mg Tablet] 10 mg PO DAILY 09/08/19 Ondansetron HCl [Zofran 8 mg Tablet] 8 mg PO ASDIR PRN 09/08/19 Pantoprazole Sodium [Protonix [address] Tablet] 40 mg PO Q6AM 09/08/19 Sacubitril/Valsartan [Entresto 97 mg/103 mg Tablet] 1 tab PO Q12 09/08/19 Warfarin Sodium [Coumadin 5 mg Tablet] 5 mg PO DAILY 09/08/19 Warfarin Sodium [Coumadin 7.5 mg Tablet] 7.5 mg PO TUTH@1000 09/08/19 Zolpidem Tartrate [Ambien] 10 mg PO QHS 09/08/19 Allergies/Adverse Reactions: hydrocodone bitartrate [From Vicodin] Allergy (Verified 07/27/18 11:36) Hives hydromorphone HCl [From Dilaudid] Allergy (Verified 05/16/19 14:28) Hives levofloxacin [From Levaquin] Allergy (Verified 07/27/18 11:36) Hives oxycodone HCl [From Percocet] Allergy (Verified 07/27/18 11:36) Hives tramadol [Tramadol] Allergy (Verified 07/27/18 11:36) Hives Review of Systems Cardiovascular: PRESENT: as per HPI Respiratory: PRESENT: as per HPI Gastrointestinal: PRESENT: abdominal pain Physical Exam Vital Signs: Temp Pulse Resp BP Pulse Ox 98.3 F 73 16 122/75 100 09/10/19 11:34 09/10/19 11:34 09/10/19 11:34 09/10/19 11:34 09/10/19 11:34 Intake & Output 09/09/19 09/10/19 09/11/19 06:59 06:59 06:59 Intake Total 50 740 Output Total 400 550 Balance -350 190 Weight 111.5 kg 113.5 kg General appearance: PRESENT: cooperative, morbidly obese, obese Head exam: PRESENT: atraumatic, normocephalic Eye exam: PRESENT: conjunctiva pink, EOMI Ear exam: PRESENT: normal external ear exam Mouth exam: PRESENT: moist Respiratory exam: PRESENT: unlabored Cardiovascular exam: PRESENT: RRR, +S1, +S2, other - Left-sided chest wall in the infraclavicular area has well-healed ICD pocket with 2 linear scars horizontally. There is no excoriation of edema or significant tenderness on palpation. Pulses: PRESENT: normal radial pulses GI/Abdominal exam: PRESENT: distended, soft Rectal exam: PRESENT: deferred Neurological exam: PRESENT: alert, awake, oriented to person, oriented to place, oriented to time, oriented to situation Psychiatric exam: PRESENT: appropriate affect Skin exam: PRESENT: dry, intact Results Laboratory Results: 09/10/19 04:25 09/09/19 04:12 09/09/19 09/09/19 09/10/19 15:30 19:05 04:25 WBC 4.4 5.6 RBC 4.68 4.62 Hgb 12.4 12.3 Hct 39.5 38.6 MCV 84 84 MCH 26.4 L 26.5 L MCHC 31.3 L 31.8 L RDW 18.5 H 18.3 H Plt Count 285 261 Fluid Type PLEURAL Fluid Source LUNG Fluid Color STRAW Fluid Appearance CLEAR Fluid Viscosity LIQUID Fluid WBC 11 Fluid RBC 477 09/08/19 09/08/19 09/08/19 01:08 09:55 09:55 Creatine Kinase 339 H CK-MB (CK-2) 5.41 H 6.19 H Troponin I 0.050 0.077 NT-Pro-B Natriuret Pep 79420 H 09/08/19 09/08/19 09/08/19 14:51 14:57 20:13 Creatine Kinase 336 H 305 H CK-MB (CK-2) 5.64 H Troponin I 0.063 NT-Pro-B Natriuret Pep 09/08/19 20:13 Creatine Kinase CK-MB (CK-2) 5.31 H Troponin I 0.053 NT-Pro-B Natriuret Pep EKG Comments: Twelve-lead EKG 09/08/2019 Biventricular paced rhythm at 88 bpm. Transthoracic echocardiogram May 18, 2019 Left atrial ejection fraction less than 15% Transthoracic echocardiogram 09/10/2019 The ventricular ejection fraction estimated at about 20 to 25% with moderate regurgitation of the mitral valve and at least moderate regurgitation of the tricuspid valve. Doppler evidence and right-sided chamber enlargement suggest the presence of significant pulmonary hypertension. Trivial pericardial effusion is also noted. There has been no significant improvement in left ventricular ejection fraction compared to prior study. Chest x-ray 09/09/2019. Independently reviewed by me Enlarged cardiac silhouette. Dual coil defibrillator lead noted. 09/09/2019 400 mL straw-colored fluid removed at thoracentesis. 09/09/2019 Hepatobiliary scan normal study without cystic or common duct obstruction Impressions: Abdomen Ultrasound 09/08/19 03:19 IMPRESSION: Thickening of the gallbladder wall. Acute cholecystitis is not excluded. Hepatobiliary Scan Nuclear Medicine 09/09/19 00:00 IMPRESSION: NORMAL STUDY WITHOUT CYSTIC OR COMMON DUCT OBSTRUCTION. Thoracentesis Ultrasound 09/09/19 08:00 IMPRESSION: SUCCESSFUL RIGHT THORACENTESIS USING ULTRASOUND GUIDANCE. Assessment & Plan - Diagnosis (1) Preop cardiovascular exam Is this a current diagnosis for this admission?: Yes Plan: From a cardiovascular standpoint patient appears to be nearly euvolemic. Continue guideline directed medical therapy for congestive heart failure presently consisting of Entresto as well as carvedilol. She appears to be tolerating these medicines. She she also has a left-sided biventricular defibrillator, Inhibitex which appears to be functioning normally with evidence of biventricular pacing on EKG. No recent ICD discharges shocks mentioned. She is medically optimized as well can be for the procedure. Risks of the procedure or anesthesia stem from history of heart failure and coronary artery disease the latter being remote. Other comorbidities also confer an increased risk but since her congestive heart failure is compensated and optimally managed she should be an acceptable risk for the planned procedure without further re- stratification or alteration in therapy. Would recommend proceeding with close attention to fluid status. Avoid exces sive fluid challenge of fluid overload as her cardiovascular reserve is minimal. There is also evidence of right ventricular dysfunction on echocardiogram. (2) Cardiomyopathy Qualifiers: Cardiomyopathy type: unspecified Qualified Code(s): I42.9 - Cardiomyopathy, unspecified Is this a current diagnosis for this admission?: Yes Plan: Dilated mixed etiology cardiomyopathy likely-patient reports history of coronary artery disease and stents. However echocardiogram is suggestive of probably nonischemic etiology with biventricular enlargement and dilatation. She appears to be on a very good medical regimen consisting of Entresto as well as carvedilol. She does not have market JVD elevation and she is status post thoracentesis which removed 400 mL of fluid from the right chest. Compared to prior echocardiogram dated 05/18/2019 there has been no significant improvement in left ventricular ejection fraction however this is only a short period of time since her last study. Would recommend continuing guideline directed medical therapy for congestive heart failure. Strict attention to salt and free water restriction. (3) ICD (implantable cardioverter-defibrillator) in place Is this a current diagnosis for this admission?: Yes Plan: Left-sided biventricular Medtronic ICD which appears to be functioning normally as there is evidence of biventricular pacing on twelve-lead EKG. We will arrange for interrogation of the ICD
[2019-09-10] MEDS: ATORVASTATIN CALCIUM 80 MG TABLET PO SCH (22:30)
[2019-09-10] MEDS: ZOLPIDEM TARTRATE 5 MG TABLET PO SCH (22:30)
[2019-09-10] MEDS: WARFARIN SODIUM 5 MG TABLET PO SCH (22:31)
[2019-09-11 05:38] LABS: INTERNATIONAL RATION (INR) 1.63; PROTHROMBIN TIME 19.5 SEC (11.4-15.4)
[2019-09-11 05:43] LABS: HEMATOCRIT 37.1 % (36.0-47.0); HEMOGLOBIN 11.9 g/dL (12.0-15.5); MEAN CORPUSCULAR HEMOGLOBIN 26.7 pg (27.0-33.4); MEAN CORPUSCULAR HGB CONC 32.1 g/dL (32.0-36.0); MEAN CORPUSCULAR VOLUME 83 fl (80-97); PLATELET COUNT 238 10^3/uL (150-450); RED BLOOD COUNT 4.45 10^6/uL (3.72-5.28); RED CELL DISTRIBUTION WIDTH 18.3 % (11.5-14.0); WHITE BLOOD COUNT 4.3 10^3/uL (4.0-10.5)
[2019-09-11 05:57] LABS: ANION GAP 8 (5-19); BLOOD UREA NITROGEN 44 mg/dL (7-20); CALCIUM 7.6 mg/dL (8.4-10.2); CARBON DIOXIDE 25 mmol/L (22-30); CHLORIDE 107 mmol/L (98-107); POTASSIUM 3.6 mmol/L (3.6-5.0)
[2019-09-11 06:10] LABS: GLUCOSE 66 mg/dL (75-110)
[2019-09-11] MEDS: FUROSEMIDE 80 MG TABLET PO SCH ×4 (06:18→23:00)
[2019-09-11] MEDS: PANTOPRAZOLE SODIUM 40 MG TABLET.DR PO SCH ×2 (06:18→06:25)
[2019-09-11] MEDS: DOCUSATE SODIUM 100 MG CAPSULE PO SCH ×3 (06:19→22:57)
[2019-09-11] MEDS: ISOSORBIDE MONONITRATE 30 MG TAB.ER.24H PO SCH ×3 (06:19→22:58)
[2019-09-11] MEDS ORDERED: DEXTROSE 5%-WATER 1000 ML 1,000 ML IV PRN (07:43)
[2019-09-11] MEDS ORDERED: LIDOCAINE 2% INJ-PF (20 MG/ML) 10 ML AMPUL ONE (08:18)
[2019-09-11] MEDS ORDERED: PROPOFOL INJ 200 MG/20 ML VIAL IV ONE (08:18)
[2019-09-11] MEDS ORDERED: PROMETHAZINE HCL INJ 25 MG/1 ML VIAL IV PRN (09:21)
[2019-09-11] MEDS ORDERED: ONDANSETRON HCL INJ/PF 4 MG/2 ML SDV IV PRN (09:21)
[2019-09-11] MEDS ORDERED: DIPHENHYDRAMINE HCL 50 MG/ML VIAL IV PRN (09:21)
--- NOTE | 2019-09-11 09:36 | Operative Report ---
Operative Report DATE OF SURGERY: 09/11/19 PREOPERATIVE DIAGNOSIS: 1. Chronic abdominal pain. 2. Status post gastric by pass with Ni-en-Y gastrojejunostomy. 3. Severe cardiomyopathy. 4. Obesity POSTOPERATIVE DIAGNOSIS: Same with. 1. Intact gastro jejunostomy. 2. Intact jejunal jejunostomy. 3. No evidence of significant esophageal, gastric pouch, or jejunal pathology OPERATION: 1. Flexible esophago-gastroscopy with cold forceps biopsy of gastrojejunal anastomosis. 2. Flexible upper endoscopy using pediatric colonoscope through gastrojejunostomy, jejunal-jejunostomy and duodenum SURGEON: CRISTEL GARRIDO ANESTHESIA: LMAC TISSUE REMOVED OR ALTERED: Cold forceps biopsy of gastrojejunal mucosa COMPLICATIONS: None ESTIMATED BLOOD LOSS: scant INTRAOPERATIVE FINDINGS: See below PROCEDURE: The patient was evaluated the preop holding area by anesthesia. Patient has a known profound cardiomyopathy, and was seen preoperatively by Dr. Walter Vargas. Patient was felt to be a moderate to high risk candidate for LMAC anesthesia. Appropriate preparations were made for potential cardiovascular collapse during the procedure. This was explained to the patient preoperatively. She expressed understanding and agreed to proceed. The patient was taken to the main operating room where very careful LMAC anesthesia was induced. Oral mouthpiece inserted, patient placed in the left lateral decubitus position. Surgical plan surgical timeout conducted. The flexible adult upper endoscope was advanced through the hypopharynx, through the esophagus through the GE junction and into the patient gastric pouch. The gastric pouch was intact, with a volume of approximately 100 cc. The gastrojejunostomy anastomosis was wide open. Advance the scope through the length of the gastroscope, approximately 90 cm, then withdrew the scope. There was no evidence of pathology in the jejunum, or the gastric pouch. No tumor, stricture bleeding polyp or ulcer. The GE junction was at approximately 42 cm from the incisor. No significant formation of the esophagus seen. The scope was withdrawn from the patient's oropharynx. It was apparent that the patient had undergone, as she had stated, a Ni-en-Y gastrojejunostomy consistent with gastric bypass. We therefore switched scopes and brought out the pediatric colonoscope. This was advanced uneventfully through the patient's hypopharynx, down the esophagus through the gastric pouch and through the Ni limb all the way to the jejunojejunostomy. I then advanced the scope up the proximal jejunum through the duodenum all the way to the pylorus. Photos were taken. DeSpite multiple manipulations of the scope, gentle abdominal wall pressure, and repositioning of the patient, I was unable to advance the scope through the pylorus. The pylorus on the duodenal side however appeared normal. The mucosa was friable and bled secondary to repeat suctioning. At this point I felt we had exhausted the capabilities of the team. The patient remained hemodynamically stable and in satisfactory respiratory state, so the scope was withdrawn slowly. No pathology seen on the way out with the colonoscope. We did take a cold forceps biopsy of the gastro jejunostomy anastomosis. Bleeding was minimal. The scope was withdrawn the patient's oropharynx. She tolerated procedure well was taken recovery room in stable condition. Impression: No endoscopic evidence of significant pathology involving the esophagus, gastric pouch, efferent or afferent jejunal limbs; intact Ni-en-Y gastric bypass; unable to evaluate bypassed distal gastric remnant; no evidence of cardiovascular respiratory collapse during the procedure Recommendations: 1. Discussed findings with Dr. Diaz; no indication for further intervention at this time 2. Patient is extremely high risk for undergoing any procedures under any form of anesthesia. 3. Will sign off from a surgical standpoint; reconsult if necessary.
[2019-09-11] MEDS ORDERED: EPINEPHRINE INJ 1 MG/10 ML DISP.SYRIN ONE (10:34)
--- NOTE | 2019-09-11 10:50 | PDOC PROGRESS REPORT ---
Subjective Progress Note for:: 09/11/19 Subjective:: Patient is currently doing well status post endoscopy Patient's endoscopy is pretty much all stable as per discussed with the Dr. Jonnie mo no sign of any abdominal issues Patient had a pediatric scope using into the colonoscopy and according to the surgery there is no sign of any other abnormalities patient's previous surgical sites Patient seen by the cardiology with a EF is 20 Patient is currently on a maximum treatment for the CHF Reason For Visit: ?CHOLECYSTITIS,CHRONIC SYSTOLIC HEART FAILURE Physical Exam Vital Signs: Temp Pulse Resp BP Pulse Ox 98.6 F 78 18 110/62 94 09/11/19 10:07 09/11/19 10:07 09/11/19 10:07 09/11/19 10:07 09/11/19 10:07 Intake & Output 09/10/19 09/11/19 09/12/19 06:59 06:59 06:59 Intake Total 740 100 500 Output Total 550 201 Balance 190 -101 500 Weight 113.5 kg 110 kg General appearance: PRESENT: no acute distress, well-developed, well-nourished Head exam: PRESENT: atraumatic, normocephalic Eye exam: PRESENT: conjunctiva pink, EOMI, PERRLA. ABSENT: scleral icterus Ear exam: PRESENT: normal external ear exam Mouth exam: PRESENT: moist, tongue midline Neck exam: PRESENT: full ROM. ABSENT: carotid bruit, JVD, lymphadenopathy, thyromegaly Respiratory exam: PRESENT: clear to auscultation abdi Cardiovascular exam: PRESENT: RRR. ABSENT: diastolic murmur, rubs, systolic murmur Pulses: PRESENT: normal dorsalis pedis pul, +2 pedal pulses bilateral Vascular exam: PRESENT: normal capillary refill GI/Abdominal exam: PRESENT: normal bowel sounds, soft. ABSENT: distended, guarding, mass, organolmegaly, rebound, tenderness Rectal exam: PRESENT: deferred Musculoskeletal exam: PRESENT: ambulatory Neurological exam: PRESENT: alert, awake, oriented to person, oriented to place, oriented to time, oriented to situation, CN II-XII grossly intact. ABSENT: motor sensory deficit Psychiatric exam: PRESENT: appropriate affect, normal mood. ABSENT: homicidal ideation, suicidal ideation Skin exam: PRESENT: dry, intact, warm. ABSENT: cyanosis, rash Results Laboratory Results: 09/11/19 04:32 09/11/19 04:32 09/11/19 09/11/19 04:32 04:32 WBC 4.3 RBC 4.45 Hgb 11.9 L Hct 37.1 MCV 83 MCH 26.7 L MCHC 32.1 RDW 18.3 H Plt Count 238 Sodium 140.3 Potassium 3.6 Chloride 107 Carbon Dioxide 25 Anion Gap 8 BUN 44 H Creatinine 2.19 H Est GFR ( Amer) 29 L Glucose 66 L Calcium 7.6 L 09/08/19 09/08/19 09/08/19 01:08 09:55 09:55 Creatine Kinase 339 H CK-MB (CK-2) 5.41 H 6.19 H Troponin I 0.050 0.077 NT-Pro-B Natriuret Pep 47111 H 09/08/19 09/08/19 09/08/19 14:51 14:57 20:13 Creatine Kinase 336 H 305 H CK-MB (CK-2) 5.64 H Troponin I 0.063 NT-Pro-B Natriuret Pep 09/08/19 20:13 Creatine Kinase CK-MB (CK-2) 5.31 H Troponin I 0.053 NT-Pro-B Natriuret Pep Impressions: Abdomen Ultrasound 09/08/19 03:19 IMPRESSION: Thickening of the gallbladder wall. Acute cholecystitis is not excluded. Hepatobiliary Scan Nuclear Medicine 09/09/19 00:00 IMPRESSION: NORMAL STUDY WITHOUT CYSTIC OR COMMON DUCT OBSTRUCTION. Thoracentesis Ultrasound 09/09/19 08:00 IMPRESSION: SUCCESSFUL RIGHT THORACENTESIS USING ULTRASOUND GUIDANCE. Assessment & Plan - Diagnosis (1) Abdominal pain Qualifiers: Abdominal location: right upper quadrant Qualified Code(s): R10.11 - Right upper quadrant pain Is this a current diagnosis for this admission?: Yes Plan: This post scope as per surgery no sign of any surgical interventions (2) Chronic combined systolic and diastolic CHF (congestive heart failure) Is this a current diagnosis for this admission?: Yes Plan: Is to current medical management (3) Chronic kidney disease Qualifiers: Chronic kidney disease stage: stage 3 (moderate) Qualified Code(s): N18.3 - Chronic kidney disease, stage 3 (moderate) Is this a current diagnosis for this admission?: Yes (4) Cardiomyopathy Qualifiers: Cardiomyopathy type: ischemic Qualified Code(s): I25.5 - Ischemic cardiomyopathy Is this a current diagnosis for this admission?: Yes (5) Cardiorenal syndrome Qualifiers: Heart failure presence: with heart failure Hypertensive chronic kidney disease stage: stage 1-4 or unspecified chronic kidney disease Qualified Code(s): I13.0 - Hypertensive heart and chronic kidney disease with heart failure and stage 1 through stage 4 chronic kidney disease, or unspecified chronic kidney disease Is this a current diagnosis for this admission?: Yes - Time Time Spent with patient: 15-24 minutes Level of Care: IMCU Medications reviewed and adjusted accordingly: Yes Anticipated discharge: Other Within: Other - Plan Summary Plan Summary: Continues to current medications
[2019-09-11] MEDS: CARVEDILOL 12.5 MG TABLET PO SCH ×2 (10:56→22:59)
[2019-09-11] MEDS: AMLODIPINE BESYLATE 10 MG TABLET PO SCH (10:56)
[2019-09-11] MEDS: LUBIPROSTONE 24 MCG CAPSULE PO SCH ×2 (10:56→22:57)
[2019-09-11] MEDS: MEDROXYPROGESTERONE ACET 10 MG TABLET PO SCH (10:57)
[2019-09-11] MEDS: SACUBITRIL/VALSARTAN 97 MG/103 MG TABLET PO SCH ×2 (10:57→23:04)
[2019-09-11] MEDS: ALLOPURINOL 100 MG TABLET PO SCH (10:57)
[2019-09-11] MEDS: CALCITRIOL 0.25 MCG CAPSULE PO SCH (10:57)
[2019-09-11] MEDS: FERROUS SULFATE 325 MG TABLET PO SCH (10:57)
--- NOTE | 2019-09-11 11:30 | PDOC PROGRESS REPORT ---
Subjective Progress Note for:: 09/11/19 Subjective:: Patient is status post endoscopy for abdominal pain. She tolerated the procedure fairly well. But she did require pressors to help correct hypotension that resulted from the use of anesthetic including propofol. Presently is groggy without symptoms. Blood pressure and heart rate are within normal range. Mild hypoxia was being corrected in PACU. Reason For Visit: ?CHOLECYSTITIS,CHRONIC SYSTOLIC HEART FAILURE Physical Exam Vital Signs: Temp Pulse Resp BP Pulse Ox 97.6 F 77 16 104/80 97 09/11/19 10:53 09/11/19 10:53 09/11/19 10:53 09/11/19 10:53 09/11/19 10:53 Intake & Output 09/10/19 09/11/19 09/12/19 06:59 06:59 06:59 Intake Total 740 100 500 Output Total 550 201 Balance 190 -101 500 Weight 113.5 kg 110 kg General appearance: PRESENT: no acute distress, morbidly obese, obese Head exam: PRESENT: atraumatic, normocephalic Eye exam: PRESENT: conjunctiva pink, EOMI Respiratory exam: PRESENT: unlabored Cardiovascular exam: PRESENT: RRR, +S1, +S2 Pulses: PRESENT: normal radial pulses Rectal exam: PRESENT: deferred Neurological exam: PRESENT: altered Results Laboratory Results: 09/11/19 04:32 09/11/19 04:32 09/11/19 09/11/19 04:32 04:32 WBC 4.3 RBC 4.45 Hgb 11.9 L Hct 37.1 MCV 83 MCH 26.7 L MCHC 32.1 RDW 18.3 H Plt Count 238 Sodium 140.3 Potassium 3.6 Chloride 107 Carbon Dioxide 25 Anion Gap 8 BUN 44 H Creatinine 2.19 H Est GFR ( Amer) 29 L Glucose 66 L Calcium 7.6 L 09/08/19 09/08/19 09/08/19 01:08 09:55 09:55 Creatine Kinase 339 H CK-MB (CK-2) 5.41 H 6.19 H Troponin I 0.050 0.077 NT-Pro-B Natriuret Pep 36967 H 09/08/19 09/08/19 09/08/19 14:51 14:57 20:13 Creatine Kinase 336 H 305 H CK-MB (CK-2) 5.64 H Troponin I 0.063 NT-Pro-B Natriuret Pep 09/08/19 20:13 Creatine Kinase CK-MB (CK-2) 5.31 H Troponin I 0.053 NT-Pro-B Natriuret Pep Impressions: Abdomen Ultrasound 09/08/19 03:19 IMPRESSION: Thickening of the gallbladder wall. Acute cholecystitis is not excluded. Hepatobiliary Scan Nuclear Medicine 09/09/19 00:00 IMPRESSION: NORMAL STUDY WITHOUT CYSTIC OR COMMON DUCT OBSTRUCTION. Thoracentesis Ultrasound 09/09/19 08:00 IMPRESSION: SUCCESSFUL RIGHT THORACENTESIS USING ULTRASOUND GUIDANCE. Assessment & Plan - Diagnosis (1) Preop cardiovascular exam Is this a current diagnosis for this admission?: Yes Plan: Patient has tolerated the procedure with pressor support. Presently doing well. Continue guideline directed medical therapy for congestive heart failure. Volume status appears to be normal. (2) Cardiomyopathy Qualifiers: Cardiomyopathy type: unspecified Qualified Code(s): I42.9 - Cardiomyopathy, unspecified Is this a current diagnosis for this admission?: Yes Plan: Patient appears compensated at the moment Continue Entresto and other guideline directed medical therapy for congestive heart failure. Continue carvedilol Watch fluid status - Notes Notes: Status post endoscopy and doing well at the moment. 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
[2019-09-11] MEDS ORDERED: GUAIFENESIN 600 MG TABLET.SA PO ONE (21:00)
[2019-09-11] MEDS: ZOLPIDEM TARTRATE 5 MG TABLET PO SCH (22:57)
[2019-09-11] MEDS: ATORVASTATIN CALCIUM 80 MG TABLET PO SCH (22:58)
[2019-09-11] MEDS: MORPHINE SULFATE 10 MG/ML INJ IV PRN (22:59)
[2019-09-11] MEDS: WARFARIN SODIUM 5 MG TABLET PO SCH (23:02)
[2019-09-11] MEDS: DIPHENHYDRAMINE HCL 50 MG/ML VIAL IV PRN (23:29)
[2019-09-12] MEDS: DOCUSATE SODIUM 100 MG CAPSULE PO SCH ×3 (06:01→22:24)
[2019-09-12] MEDS: PANTOPRAZOLE SODIUM 40 MG TABLET.DR PO SCH (06:02)
[2019-09-12 07:01] LABS: HEMATOCRIT 35.3 % (36.0-47.0); HEMOGLOBIN 11.3 g/dL (12.0-15.5); MEAN CORPUSCULAR HEMOGLOBIN 26.7 pg (27.0-33.4); MEAN CORPUSCULAR VOLUME 83 fl (80-97); PLATELET COUNT 242 10^3/uL (150-450); RED BLOOD COUNT 4.24 10^6/uL (3.72-5.28); RED CELL DISTRIBUTION WIDTH 18.3 % (11.5-14.0)
[2019-09-12 07:22] LABS: ANION GAP 6 (5-19); BLOOD UREA NITROGEN 44 mg/dL (7-20); CALCIUM 7.2 mg/dL (8.4-10.2); CARBON DIOXIDE 24 mmol/L (22-30); CHLORIDE 108 mmol/L (98-107); GLUCOSE 91 mg/dL (75-110); POTASSIUM 3.8 mmol/L (3.6-5.0)
[2019-09-12 07:24] LABS: INTERNATIONAL RATION (INR) 2.17; PROTHROMBIN TIME 24.5 SEC (11.4-15.4)
[2019-09-12] MEDS: ISOSORBIDE MONONITRATE 30 MG TAB.ER.24H PO SCH ×3 (08:17→22:24)
[2019-09-12] MEDS: FUROSEMIDE 80 MG TABLET PO SCH ×3 (08:17→22:37)
[2019-09-12] MEDS: GUAIFENESIN 600 MG TABLET.SA PO SCH (09:17)
[2019-09-12] MEDS: FERROUS SULFATE 325 MG TABLET PO SCH (09:17)
[2019-09-12] MEDS: ALLOPURINOL 100 MG TABLET PO SCH (09:17)
[2019-09-12] MEDS: LUBIPROSTONE 24 MCG CAPSULE PO SCH ×2 (09:17→22:39)
[2019-09-12] MEDS: AMLODIPINE BESYLATE 10 MG TABLET PO SCH (09:18)
[2019-09-12] MEDS: SACUBITRIL/VALSARTAN 97 MG/103 MG TABLET PO SCH ×2 (09:18→23:19)
[2019-09-12] MEDS: CARVEDILOL 12.5 MG TABLET PO SCH ×2 (09:18→22:11)
[2019-09-12] MEDS: CALCITRIOL 0.25 MCG CAPSULE PO SCH (09:18)
[2019-09-12] MEDS: MEDROXYPROGESTERONE ACET 10 MG TABLET PO SCH (09:18)
--- NOTE | 2019-09-12 09:22 | PDOC PROGRESS REPORT ---
Subjective Progress Note for:: 09/12/19 Subjective:: Patient is status post endoscopy for abdominal pain yesterday. She complains of back pain and generalized body ache and also complains of itching and is requesting for Benadryl. No chest pain or dyspnea. Patient is resting comfortably and is relatively flat in bed without any orthopnea being admitted to. Reason For Visit: ?CHOLECYSTITIS,CHRONIC SYSTOLIC HEART FAILURE Physical Exam Vital Signs: Temp Pulse Resp BP Pulse Ox 97.5 F 79 18 108/70 98 09/12/19 08:05 09/12/19 08:05 09/12/19 08:05 09/12/19 08:05 09/12/19 08:05 Intake & Output 09/11/19 09/12/19 09/13/19 06:59 06:59 06:59 Intake Total 100 2397 Output Total 201 1 Balance -101 2396 Weight 110 kg 109 kg General appearance: PRESENT: morbidly obese, obese Head exam: PRESENT: atraumatic, normocephalic Eye exam: PRESENT: EOMI Mouth exam: PRESENT: moist Respiratory exam: PRESENT: unlabored Cardiovascular exam: PRESENT: RRR, +S1, +S2 Rectal exam: PRESENT: deferred Neurological exam: PRESENT: alert, awake, oriented to person Results Laboratory Results: 09/12/19 06:44 09/12/19 06:44 09/09/19 09/09/19 09/09/19 15:30 15:30 15:30 WBC RBC Hgb Hct MCV MCH MCHC RDW Plt Count Sodium Potassium Chloride Carbon Dioxide Anion Gap BUN Creatinine Est GFR ( Amer) Glucose Calcium Fluid Glucose 130 Fluid LDH 47 Fluid Amylase 11 09/12/19 09/12/19 06:44 06:44 WBC 5.0 RBC 4.24 Hgb 11.3 L Hct 35.3 L MCV 83 MCH 26.7 L MCHC 32.0 RDW 18.3 H Plt Count 242 Sodium 138.1 Potassium 3.8 Chloride 108 H Carbon Dioxide 24 Anion Gap 6 BUN 44 H Creatinine 2.16 H Est GFR ( Amer) 30 L Glucose 91 Calcium 7.2 L Fluid Glucose Fluid LDH Fluid Amylase 09/09/19 15:30 Pleural Fluid - Right Pleural Effusion Gram Stain - Final 09/08/19 09/08/19 09/08/19 01:08 09:55 09:55 Creatine Kinase 339 H CK-MB (CK-2) 5.41 H 6.19 H Troponin I 0.050 0.077 NT-Pro-B Natriuret Pep 19705 H 09/08/19 09/08/19 09/08/19 14:51 14:57 20:13 Creatine Kinase 336 H 305 H CK-MB (CK-2) 5.64 H Troponin I 0.063 NT-Pro-B Natriuret Pep 09/08/19 20:13 Creatine Kinase CK-MB (CK-2) 5.31 H Troponin I 0.053 NT-Pro-B Natriuret Pep Impressions: Abdomen Ultrasound 09/08/19 03:19 IMPRESSION: Thickening of the gallbladder wall. Acute cholecystitis is not excluded. Hepatobiliary Scan Nuclear Medicine 09/09/19 00:00 IMPRESSION: NORMAL STUDY WITHOUT CYSTIC OR COMMON DUCT OBSTRUCTION. Thoracentesis Ultrasound 09/09/19 08:00 IMPRESSION: SUCCESSFUL RIGHT THORACENTESIS USING ULTRASOUND GUIDANCE. Assessment & Plan - Diagnosis (1) Preop cardiovascular exam Is this a current diagnosis for this admission?: Yes Plan: Patient has tolerated the procedure with pressor support. Presently doing well post procedure. We will continue to monitor. Continue guideline directed medical therapy for congestive heart failure.. (2) Cardiomyopathy Qualifiers: Cardiomyopathy type: unspecified Qualified Code(s): I42.9 - Cardiomyopathy, unspecified Is this a current diagnosis for this admission?: Yes Plan: Patient appears compensated at the moment Continue Entresto and other guideline directed medical therapy for congestive heart failure. Continue carvedilol Watch fluid status - Notes Notes: Continue guideline directed therapy for congestive heart failure. Repeat echocardiogram does not show significant improvement in LV function. However patient is on optimal medical therapy and also he is euvolemic on exam.
--- NOTE | 2019-09-12 20:23 | PDOC PROGRESS REPORT ---
Subjective Progress Note for:: 09/12/19 Subjective:: Patient was seen by the bedside,, she had EGD done over the weekend, it was negative for any significant pathology, she continues to complain of pain in the upper abdomen, she also have pain in the extremities, the pain is more likely to be dyspepsia Reason For Visit: ?CHOLECYSTITIS,CHRONIC SYSTOLIC HEART FAILURE Physical Exam Vital Signs: Temp Pulse Resp BP Pulse Ox 98.3 F 76 14 100/67 96 09/12/19 16:21 09/12/19 16:21 09/12/19 16:21 09/12/19 16:21 09/12/19 16:21 Intake & Output 09/11/19 09/12/19 09/13/19 06:59 06:59 06:59 Intake Total 100 2397 342 Output Total 201 1 Balance -101 2396 342 Weight 110 kg 109 kg General appearance: PRESENT: no acute distress Eye exam: PRESENT: PERRLA Respiratory exam: PRESENT: clear to auscultation abdi Cardiovascular exam: PRESENT: +S1, +S2 GI/Abdominal exam: PRESENT: soft Neurological exam: PRESENT: alert Results Laboratory Results: 09/12/19 06:44 09/12/19 06:44 09/09/19 09/09/19 09/09/19 15:30 15:30 15:30 WBC RBC Hgb Hct MCV MCH MCHC RDW Plt Count Sodium Potassium Chloride Carbon Dioxide Anion Gap BUN Creatinine Est GFR ( Amer) Glucose Calcium Fluid Glucose 130 Fluid LDH 47 Fluid Amylase 11 09/12/19 09/12/19 06:44 06:44 WBC 5.0 RBC 4.24 Hgb 11.3 L Hct 35.3 L MCV 83 MCH 26.7 L MCHC 32.0 RDW 18.3 H Plt Count 242 Sodium 138.1 Potassium 3.8 Chloride 108 H Carbon Dioxide 24 Anion Gap 6 BUN 44 H Creatinine 2.16 H Est GFR ( Amer) 30 L Glucose 91 Calcium 7.2 L Fluid Glucose Fluid LDH Fluid Amylase 09/09/19 15:30 Pleural Fluid - Right Pleural Effusion Gram Stain - Final 09/08/19 09/08/19 09/08/19 01:08 09:55 09:55 Creatine Kinase 339 H CK-MB (CK-2) 5.41 H 6.19 H Troponin I 0.050 0.077 NT-Pro-B Natriuret Pep 84917 H 09/08/19 09/08/19 09/08/19 14:51 14:57 20:13 Creatine Kinase 336 H 305 H CK-MB (CK-2) 5.64 H Troponin I 0.063 NT-Pro-B Natriuret Pep 09/08/19 20:13 Creatine Kinase CK-MB (CK-2) 5.31 H Troponin I 0.053 NT-Pro-B Natriuret Pep Impressions: Abdomen Ultrasound 09/08/19 03:19 IMPRESSION: Thickening of the gallbladder wall. Acute cholecystitis is not excluded. Hepatobiliary Scan Nuclear Medicine 09/09/19 00:00 IMPRESSION: NORMAL STUDY WITHOUT CYSTIC OR COMMON DUCT OBSTRUCTION. Thoracentesis Ultrasound 09/09/19 08:00 IMPRESSION: SUCCESSFUL RIGHT THORACENTESIS USING ULTRASOUND GUIDANCE. Assessment & Plan - Diagnosis (1) Abdominal pain Qualifiers: Abdominal location: right upper quadrant Qualified Code(s): R10.11 - Right upper quadrant pain Is this a current diagnosis for this admission?: Yes Plan: She has upper abdominal pain, less likely to be from the heart, the EGD was negative, this could be dyspepsia, or chronic abdominal pain, patient already on pantoprazole, start Cymbalta (2) Chronic combined systolic and diastolic CHF (congestive heart failure) Is this a current diagnosis for this admission?: Yes - Time Time Spent with patient: 25-34 minutes
[2019-09-12] MEDS: WARFARIN SODIUM 5 MG TABLET PO SCH (22:36)
[2019-09-12] MEDS: ATORVASTATIN CALCIUM 80 MG TABLET PO SCH (22:37)
[2019-09-12] MEDS: ZOLPIDEM TARTRATE 5 MG TABLET PO SCH (22:37)
[2019-09-12] MEDS: MORPHINE SULFATE 10 MG/ML INJ IV PRN (22:40)
[2019-09-12] MEDS: DIPHENHYDRAMINE HCL 50 MG/ML VIAL IV PRN (22:40)
[2019-09-12] MEDS: DULOXETINE HCL 30 MG CAPSULE.DR PO SCH (23:19)
[2019-09-13] MEDS: FUROSEMIDE 80 MG TABLET PO SCH ×3 (05:28→22:34)
[2019-09-13] MEDS: PANTOPRAZOLE SODIUM 40 MG TABLET.DR PO SCH (05:29)
[2019-09-13] MEDS: DOCUSATE SODIUM 100 MG CAPSULE PO SCH ×3 (05:29→22:43)
[2019-09-13] MEDS: ISOSORBIDE MONONITRATE 30 MG TAB.ER.24H PO SCH ×3 (05:29→22:35)
[2019-09-13 05:56] LABS: ANION GAP 11 (5-19); BLOOD UREA NITROGEN 48 mg/dL (7-20); CALCIUM 7.5 mg/dL (8.4-10.2); CARBON DIOXIDE 21 mmol/L (22-30); CHLORIDE 107 mmol/L (98-107); GLUCOSE 78 mg/dL (75-110); POTASSIUM 3.6 mmol/L (3.6-5.0)
[2019-09-13] MEDS: GUAIFENESIN 600 MG TABLET.SA PO SCH (09:13)
[2019-09-13] MEDS: ALLOPURINOL 100 MG TABLET PO SCH (09:13)
[2019-09-13] MEDS: MEDROXYPROGESTERONE ACET 10 MG TABLET PO SCH (09:13)
[2019-09-13] MEDS: SACUBITRIL/VALSARTAN 97 MG/103 MG TABLET PO SCH ×2 (09:13→22:43)
[2019-09-13] MEDS: LUBIPROSTONE 24 MCG CAPSULE PO SCH ×2 (09:13→22:35)
[2019-09-13] MEDS: DULOXETINE HCL 30 MG CAPSULE.DR PO SCH (09:13)
[2019-09-13] MEDS: CALCITRIOL 0.25 MCG CAPSULE PO SCH (09:13)
[2019-09-13] MEDS: FERROUS SULFATE 325 MG TABLET PO SCH (09:13)
[2019-09-13] MEDS: AMLODIPINE BESYLATE 10 MG TABLET PO SCH (09:13)
[2019-09-13] MEDS: CARVEDILOL 12.5 MG TABLET PO SCH ×2 (09:13→22:41)
[2019-09-13] MEDS ORDERED: (PENDING PHARMACY ID) (Warfarin Sodium 7.5 MG) PO SCH (10:00)
[2019-09-13 10:29] LABS: INTERNATIONAL RATION (INR) 2.05; PROTHROMBIN TIME 23.4 SEC (11.4-15.4)
[2019-09-13] MEDS ORDERED: ONDANSETRON HCL 8 MG TABLET PO PRN (13:41)
[2019-09-13] MEDS ORDERED: WARFARIN SODIUM 7.5 MG TABLET PO SCH (22:00)
[2019-09-13] MEDS: WARFARIN SODIUM 5 MG TABLET PO SCH (22:32)
[2019-09-13] MEDS: ATORVASTATIN CALCIUM 80 MG TABLET PO SCH (22:32)
[2019-09-13] MEDS: ZOLPIDEM TARTRATE 5 MG TABLET PO SCH (22:33)
[2019-09-13] MEDS: MORPHINE SULFATE 10 MG/ML INJ IV PRN (22:36)
[2019-09-13] MEDS: DIPHENHYDRAMINE HCL 50 MG/ML VIAL IV PRN (22:37)
--- NOTE | 2019-09-13 22:53 | PDOC PROGRESS REPORT ---
Subjective Progress Note for:: 09/13/19 Subjective:: Patient seen by the bedside, she continues to complain of abdominal pain Reason For Visit: ?CHOLECYSTITIS,CHRONIC SYSTOLIC HEART FAILURE Physical Exam Vital Signs: Temp Pulse Resp BP Pulse Ox 98.3 F 71 16 103/66 97 09/13/19 19:47 09/13/19 19:47 09/13/19 19:47 09/13/19 19:47 09/13/19 19:47 Intake & Output 09/12/19 09/13/19 09/14/19 06:59 06:59 06:59 Intake Total 2397 822 1610 Output Total 1 0 Balance 2396 822 1610 Weight 109 kg 113.7 kg General appearance: PRESENT: no acute distress Eye exam: PRESENT: PERRLA Respiratory exam: PRESENT: clear to auscultation abdi Cardiovascular exam: PRESENT: +S1, +S2 GI/Abdominal exam: PRESENT: soft Neurological exam: PRESENT: alert, CN II-XII grossly intact Results Laboratory Results: 09/12/19 06:44 09/13/19 04:36 09/13/19 04:36 Sodium 138.7 Potassium 3.6 Chloride 107 Carbon Dioxide 21 L Anion Gap 11 BUN 48 H Creatinine 2.16 H Est GFR ( Amer) 30 L Glucose 78 Calcium 7.5 L 09/09/19 15:30 Pleural Fluid - Right Pleural Effusion Gram Stain - Final 09/09/19 15:30 Pleural Fluid - Right Pleural Effusion Body Fluid Culture - Final NO AEROBIC OR ANAEROBIC ORGANISMS RECOVERED 09/08/19 09/08/19 09/08/19 01:08 09:55 09:55 Creatine Kinase 339 H CK-MB (CK-2) 5.41 H 6.19 H Troponin I 0.050 0.077 NT-Pro-B Natriuret Pep 85042 H 09/08/19 09/08/19 09/08/19 14:51 14:57 20:13 Creatine Kinase 336 H 305 H CK-MB (CK-2) 5.64 H Troponin I 0.063 NT-Pro-B Natriuret Pep 09/08/19 20:13 Creatine Kinase CK-MB (CK-2) 5.31 H Troponin I 0.053 NT-Pro-B Natriuret Pep Impressions: Abdomen Ultrasound 09/08/19 03:19 IMPRESSION: Thickening of the gallbladder wall. Acute cholecystitis is not excluded. Hepatobiliary Scan Nuclear Medicine 09/09/19 00:00 IMPRESSION: NORMAL STUDY WITHOUT CYSTIC OR COMMON DUCT OBSTRUCTION. Thoracentesis Ultrasound 09/09/19 08:00 IMPRESSION: SUCCESSFUL RIGHT THORACENTESIS USING ULTRASOUND GUIDANCE. Assessment & Plan - Diagnosis (1) Abdominal pain Qualifiers: Abdominal location: right upper quadrant Qualified Code(s): R10.11 - Right upper quadrant pain Is this a current diagnosis for this admission?: Yes (2) Chronic combined systolic and diastolic CHF (congestive heart failure) Is this a current diagnosis for this admission?: Yes - Time Time Spent with patient: 25-34 minutes
[2019-09-14 04:26] LABS: PROTHROMBIN TIME 27.4 SEC (11.4-15.4)
[2019-09-14] MEDS: ISOSORBIDE MONONITRATE 30 MG TAB.ER.24H PO SCH ×3 (05:16→22:39)
[2019-09-14] MEDS: FUROSEMIDE 80 MG TABLET PO SCH ×3 (05:16→21:57)
[2019-09-14] MEDS: PANTOPRAZOLE SODIUM 40 MG TABLET.DR PO SCH (05:19)
[2019-09-14] MEDS: DOCUSATE SODIUM 100 MG CAPSULE PO SCH ×3 (05:19→21:57)
[2019-09-14] MEDS: AMLODIPINE BESYLATE 10 MG TABLET PO SCH (10:10)
[2019-09-14] MEDS: GUAIFENESIN 600 MG TABLET.SA PO SCH (10:10)
[2019-09-14] MEDS: LUBIPROSTONE 24 MCG CAPSULE PO SCH ×2 (10:10→21:57)
[2019-09-14] MEDS: CARVEDILOL 12.5 MG TABLET PO SCH ×2 (10:10→22:39)
[2019-09-14] MEDS: CALCITRIOL 0.25 MCG CAPSULE PO SCH (10:10)
[2019-09-14] MEDS: DULOXETINE HCL 30 MG CAPSULE.DR PO SCH (10:10)
[2019-09-14] MEDS: ALLOPURINOL 100 MG TABLET PO SCH (10:10)
[2019-09-14] MEDS: SACUBITRIL/VALSARTAN 97 MG/103 MG TABLET PO SCH ×2 (10:10→22:39)
[2019-09-14] MEDS: FERROUS SULFATE 325 MG TABLET PO SCH (10:10)
[2019-09-14] MEDS: MEDROXYPROGESTERONE ACET 10 MG TABLET PO SCH (10:11)
[2019-09-14 10:12] LABS: PROTHROMBIN TIME 31.8 SEC (11.4-15.4)
--- NOTE | 2019-09-14 16:59 | PDOC PROGRESS REPORT ---
Subjective Progress Note for:: 09/14/19 Subjective:: Patient seen by the bedside, she is extremely deconditioned, she will need to go to a facility for rehabilitation and physical therapy consultation will be requested from discharge planning Reason For Visit: ?CHOLECYSTITIS,CHRONIC SYSTOLIC HEART FAILURE Physical Exam Vital Signs: Temp Pulse Resp BP Pulse Ox 97.3 F 72 18 102/62 98 09/14/19 11:29 09/14/19 11:29 09/14/19 11:29 09/14/19 11:29 09/14/19 11:29 Intake & Output 09/13/19 09/14/19 09/15/19 06:59 06:59 06:59 Intake Total 822 1610 458 Output Total 0 300 Balance 822 1310 458 Weight 113.7 kg 112.9 kg General appearance: PRESENT: no acute distress Eye exam: PRESENT: PERRLA Respiratory exam: PRESENT: clear to auscultation abdi Cardiovascular exam: PRESENT: +S1, +S2 GI/Abdominal exam: PRESENT: soft Neurological exam: PRESENT: alert Results Laboratory Results: 09/12/19 06:44 09/13/19 04:36 09/08/19 09/08/19 09/08/19 01:08 09:55 09:55 Creatine Kinase 339 H CK-MB (CK-2) 5.41 H 6.19 H Troponin I 0.050 0.077 NT-Pro-B Natriuret Pep 07468 H 09/08/19 09/08/19 09/08/19 14:51 14:57 20:13 Creatine Kinase 336 H 305 H CK-MB (CK-2) 5.64 H Troponin I 0.063 NT-Pro-B Natriuret Pep 09/08/19 20:13 Creatine Kinase CK-MB (CK-2) 5.31 H Troponin I 0.053 NT-Pro-B Natriuret Pep Impressions: Abdomen Ultrasound 09/08/19 03:19 IMPRESSION: Thickening of the gallbladder wall. Acute cholecystitis is not excluded. Hepatobiliary Scan Nuclear Medicine 09/09/19 00:00 IMPRESSION: NORMAL STUDY WITHOUT CYSTIC OR COMMON DUCT OBSTRUCTION. Thoracentesis Ultrasound 09/09/19 08:00 IMPRESSION: SUCCESSFUL RIGHT THORACENTESIS USING ULTRASOUND GUIDANCE. Assessment & Plan - Diagnosis (1) Abdominal pain Qualifiers: Abdominal location: right upper quadrant Qualified Code(s): R10.11 - Right upper quadrant pain Is this a current diagnosis for this admission?: Yes (2) Chronic combined systolic and diastolic CHF (congestive heart failure) Is this a current diagnosis for this admission?: Yes (3) CKD (chronic kidney disease) stage 3, GFR 30-59 ml/min Is this a current diagnosis for this admission?: Yes - Time Time Spent with patient: 15-24 minutes
[2019-09-14] MEDS: WARFARIN SODIUM 5 MG TABLET PO SCH (22:39)
[2019-09-14] MEDS: ATORVASTATIN CALCIUM 80 MG TABLET PO SCH (22:39)
[2019-09-14] MEDS: ZOLPIDEM TARTRATE 5 MG TABLET PO SCH (22:39)
[2019-09-14] MEDS: MORPHINE SULFATE 10 MG/ML INJ IV PRN (22:46)
[2019-09-14] MEDS: DIPHENHYDRAMINE HCL 50 MG/ML VIAL IV PRN (22:47)
[2019-09-15] MEDS: DOCUSATE SODIUM 100 MG CAPSULE PO SCH ×3 (05:15→22:18)
[2019-09-15] MEDS: ISOSORBIDE MONONITRATE 30 MG TAB.ER.24H PO SCH ×3 (05:22→22:22)
[2019-09-15] MEDS: FUROSEMIDE 80 MG TABLET PO SCH ×3 (05:22→22:17)
[2019-09-15] MEDS: PANTOPRAZOLE SODIUM 40 MG TABLET.DR PO SCH (05:22)
[2019-09-15 05:29] LABS: INTERNATIONAL RATION (INR) 3.94; PROTHROMBIN TIME 39.5 SEC (11.4-15.4)
[2019-09-15] MEDS: LUBIPROSTONE 24 MCG CAPSULE PO SCH ×2 (09:52→22:18)
[2019-09-15] MEDS: DULOXETINE HCL 30 MG CAPSULE.DR PO SCH (09:59)
[2019-09-15] MEDS: ALLOPURINOL 100 MG TABLET PO SCH (10:00)
[2019-09-15] MEDS: FERROUS SULFATE 325 MG TABLET PO SCH (10:00)
[2019-09-15] MEDS: MEDROXYPROGESTERONE ACET 10 MG TABLET PO SCH (10:00)
[2019-09-15] MEDS: GUAIFENESIN 600 MG TABLET.SA PO SCH (10:00)
[2019-09-15] MEDS: CALCITRIOL 0.25 MCG CAPSULE PO SCH (10:01)
[2019-09-15 11:19] LABS: INTERNATIONAL RATION (INR) 4.26; PROTHROMBIN TIME 42.1 SEC (11.4-15.4)
[2019-09-15 15:34] LABS: HEMATOCRIT 33.4 % (36.0-47.0); HEMOGLOBIN 10.8 g/dL (12.0-15.5); MEAN CORPUSCULAR HEMOGLOBIN 26.8 pg (27.0-33.4); MEAN CORPUSCULAR HGB CONC 32.4 g/dL (32.0-36.0); MEAN CORPUSCULAR VOLUME 83 fl (80-97); PLATELET COUNT 223 10^3/uL (150-450); RED BLOOD COUNT 4.04 10^6/uL (3.72-5.28); RED CELL DISTRIBUTION WIDTH 18.3 % (11.5-14.0); WHITE BLOOD COUNT 4.5 10^3/uL (4.0-10.5)
[2019-09-15] MEDS: CARVEDILOL 12.5 MG TABLET PO SCH ×2 (16:13→22:18)
[2019-09-15] MEDS: SACUBITRIL/VALSARTAN 97 MG/103 MG TABLET PO SCH ×2 (16:13→22:22)
[2019-09-15] MEDS: AMLODIPINE BESYLATE 10 MG TABLET PO SCH (16:13)
--- NOTE | 2019-09-15 21:14 | PDOC PROGRESS REPORT ---
Subjective Progress Note for:: 09/15/19 Subjective:: She complain of back pain, I recommend that she goes to halfway for rehabilitation Reason For Visit: ?CHOLECYSTITIS,CHRONIC SYSTOLIC HEART FAILURE Physical Exam Vital Signs: Temp Pulse Resp BP Pulse Ox 97.7 F 73 18 106/60 99 09/15/19 16:54 09/15/19 16:54 09/15/19 16:54 09/15/19 16:54 09/15/19 16:54 Intake & Output 09/14/19 09/15/19 09/16/19 06:59 06:59 06:59 Intake Total 9448 322 2700 Output Total 300 Balance 7937 251 2571 Weight 112.9 kg 112 kg General appearance: PRESENT: no acute distress Eye exam: PRESENT: PERRLA Respiratory exam: PRESENT: clear to auscultation abdi Cardiovascular exam: PRESENT: +S1, +S2 GI/Abdominal exam: PRESENT: soft Neurological exam: PRESENT: alert Results Laboratory Results: 09/15/19 15:18 09/13/19 04:36 09/15/19 15:18 WBC 4.5 RBC 4.04 Hgb 10.8 L Hct 33.4 L MCV 83 MCH 26.8 L MCHC 32.4 RDW 18.3 H Plt Count 223 09/08/19 09/08/19 09/08/19 01:08 09:55 09:55 Creatine Kinase 339 H CK-MB (CK-2) 5.41 H 6.19 H Troponin I 0.050 0.077 NT-Pro-B Natriuret Pep 92629 H 09/08/19 09/08/19 09/08/19 14:51 14:57 20:13 Creatine Kinase 336 H 305 H CK-MB (CK-2) 5.64 H Troponin I 0.063 NT-Pro-B Natriuret Pep 09/08/19 20:13 Creatine Kinase CK-MB (CK-2) 5.31 H Troponin I 0.053 NT-Pro-B Natriuret Pep Impressions: Abdomen Ultrasound 09/08/19 03:19 IMPRESSION: Thickening of the gallbladder wall. Acute cholecystitis is not excluded. Hepatobiliary Scan Nuclear Medicine 09/09/19 00:00 IMPRESSION: NORMAL STUDY WITHOUT CYSTIC OR COMMON DUCT OBSTRUCTION. Thoracentesis Ultrasound 09/09/19 08:00 IMPRESSION: SUCCESSFUL RIGHT THORACENTESIS USING ULTRASOUND GUIDANCE. Assessment & Plan - Diagnosis (1) Abdominal pain Qualifiers: Abdominal location: right upper quadrant Qualified Code(s): R10.11 - Right upper quadrant pain Is this a current diagnosis for this admission?: Yes (2) Chronic combined systolic and diastolic CHF (congestive heart failure) Is this a current diagnosis for this admission?: Yes (3) CKD (chronic kidney disease) stage 3, GFR 30-59 ml/min Is this a current diagnosis for this admission?: Yes (4) Radiculopathy, lumbar region Is this a current diagnosis for this admission?: Yes - Time Time Spent with patient: 15-24 minutes
[2019-09-15] MEDS: ATORVASTATIN CALCIUM 80 MG TABLET PO SCH (22:22)
[2019-09-15] MEDS: DIPHENHYDRAMINE HCL 50 MG/ML VIAL IV PRN (23:43)
[2019-09-16] MEDS ORDERED: MORPHINE SULFATE 10 MG/ML INJ ONE (00:35)
[2019-09-16] MEDS ORDERED: MORPHINE SULFATE 10 MG/ML INJ IV ONE (01:00)
[2019-09-16] MEDS: PANTOPRAZOLE SODIUM 40 MG TABLET.DR PO SCH (06:15)
[2019-09-16] MEDS: FUROSEMIDE 80 MG TABLET PO SCH ×3 (06:15→21:48)
[2019-09-16] MEDS: DOCUSATE SODIUM 100 MG CAPSULE PO SCH ×3 (06:16→21:46)
[2019-09-16] MEDS: ISOSORBIDE MONONITRATE 30 MG TAB.ER.24H PO SCH ×3 (06:16→21:47)
--- NOTE | 2019-09-16 09:30 | RADIOLOGY REPORT (SQ) ---
EXAM DESCRIPTION: L SPINE 2 VIEWS COMPLETED DATE/TIME: 09/16/2019 8:52 am REASON FOR STUDY: back pain I50.42 CHRONIC COMBINED SYSTOLIC AND DIASTOLIC HRT FAIL I26.99 OTHER PULMONARY EMBOLISM WITHOUT ACUTE COR PULMONALE COMPARISON: None. NUMBER OF VIEWS: Two views. TECHNIQUE: AP and lateral radiographic images acquired of the lumbar spine. LIMITATIONS: None. FINDINGS: MINERALIZATION: Normal. SEGMENTATION: There are 5 lumbar-type vertebral bodies. There is no transitional anatomy at the lumb osacral junction. ALIGNMENT: No scoliotic curvature or spondylolisthesis VERTEBRAE: The lumbar vertebral body heights are preserved. There is no fracture. DISCS: The intervertebral disc spaces are preserved. POSTERIOR ELEMENTS: The pedicles and facets are intact; there is no pars interarticularis defect. HARDWARE: None in the spine. PARASPINAL SOFT TISSUES: Atherosclerotic calcification of the abdominal aorta and iliac arteries. PELVIS: The SI joints are intact. OTHER: Surgical clips in the left upper quadrant and IUD. IMPRESSION: No fracture or malalignment of the lumbar spine. TECHNICAL DOCUMENTATION: JOB ID: [id number] [employer]- All Rights Reserved Reading location - IP/workstation name: [email or web address]
[2019-09-16] MEDS: GUAIFENESIN 600 MG TABLET.SA PO SCH (11:06)
[2019-09-16] MEDS: CALCITRIOL 0.25 MCG CAPSULE PO SCH (11:06)
[2019-09-16] MEDS: MEDROXYPROGESTERONE ACET 10 MG TABLET PO SCH (11:07)
[2019-09-16] MEDS: FERROUS SULFATE 325 MG TABLET PO SCH (11:07)
[2019-09-16] MEDS: SACUBITRIL/VALSARTAN 97 MG/103 MG TABLET PO SCH ×2 (11:08→21:46)
[2019-09-16] MEDS: DULOXETINE HCL 30 MG CAPSULE.DR PO SCH (11:10)
[2019-09-16] MEDS: ALLOPURINOL 100 MG TABLET PO SCH (11:11)
[2019-09-16] MEDS: CARVEDILOL 12.5 MG TABLET PO SCH ×2 (11:13→21:47)
[2019-09-16] MEDS: AMLODIPINE BESYLATE 10 MG TABLET PO SCH (11:13)
[2019-09-16] MEDS: LUBIPROSTONE 24 MCG CAPSULE PO SCH ×2 (11:13→21:46)
[2019-09-16 21:32] LABS: APPEARANCE,URINE CLEAR; BILIRUBIN,URINE NEGATIVE (NEGATIVE); COLOR,URINE YELLOW; GLUCOSE, URINE NEGATIVE (NEGATIVE); KETONES,URINE NEGATIVE (NEGATIVE); LEUKOCYTE ESTERASE,URINE NEGATIVE (NEGATIVE); NITRITE,URINE NEGATIVE (NEGATIVE); PROTEIN,URINE NEGATIVE (NEGATIVE); URINE SPECIFIC GRAVITY 1.013; UROBILINOGEN,URINE NEGATIVE mg/dL (<2.0)
[2019-09-16] MEDS: ATORVASTATIN CALCIUM 80 MG TABLET PO SCH (21:48)
--- NOTE | 2019-09-17 00:03 | PDOC PROGRESS REPORT ---
Subjective Progress Note for:: 09/16/19 Subjective:: she continues to complain of pain Reason For Visit: ?CHOLECYSTITIS,CHRONIC SYSTOLIC HEART FAILURE Physical Exam Vital Signs: Temp Pulse Resp BP Pulse Ox 98.9 F 70 18 125/75 100 09/16/19 19:29 09/16/19 19:29 09/16/19 19:29 09/16/19 19:29 09/16/19 19:29 Intake & Output 09/15/19 09/16/19 09/17/19 06:59 06:59 06:59 Intake Total 928 1712 1080 Output Total 0 Balance 928 1712 1080 Weight 112 kg 110.6 kg General appearance: PRESENT: no acute distress Eye exam: PRESENT: PERRLA Respiratory exam: PRESENT: clear to auscultation abdi Cardiovascular exam: PRESENT: +S1, +S2 GI/Abdominal exam: PRESENT: soft Results Laboratory Results: 09/15/19 15:18 09/13/19 04:36 09/16/19 20:50 Urine Color YELLOW Urine Appearance CLEAR Urine pH 5.0 Ur Specific [place] 1.013 Urine Protein NEGATIVE Urine Glucose (UA) NEGATIVE Urine Ketones NEGATIVE Urine Blood NEGATIVE Urine Nitrite NEGATIVE Ur Leukocyte Esterase NEGATIVE Urine WBC (Auto) 0 Urine RBC (Auto) 0 09/08/19 09/08/19 09/08/19 01:08 09:55 09:55 Creatine Kinase 339 H CK-MB (CK-2) 5.41 H 6.19 H Troponin I 0.050 0.077 NT-Pro-B Natriuret Pep 98677 H 09/08/19 09/08/19 09/08/19 14:51 14:57 20:13 Creatine Kinase 336 H 305 H CK-MB (CK-2) 5.64 H Troponin I 0.063 NT-Pro-B Natriuret Pep 09/08/19 20:13 Creatine Kinase CK-MB (CK-2) 5.31 H Troponin I 0.053 NT-Pro-B Natriuret Pep Impressions: Abdomen Ultrasound 09/08/19 03:19 IMPRESSION: Thickening of the gallbladder wall. Acute cholecystitis is not excluded. Hepatobiliary Scan Nuclear Medicine 09/09/19 00:00 IMPRESSION: NORMAL STUDY WITHOUT CYSTIC OR COMMON DUCT OBSTRUCTION. Thoracentesis Ultrasound 09/09/19 08:00 IMPRESSION: SUCCESSFUL RIGHT THORACENTESIS USING ULTRASOUND GUIDANCE. Lumbar Spine X-Ray 09/15/19 00:00 IMPRESSION: No fracture or malalignment of the lumbar spine. Assessment & Plan - Diagnosis (1) Abdominal pain Qualifiers: Abdominal location: right upper quadrant Qualified Code(s): R10.11 - Right upper quadrant pain Is this a current diagnosis for this admission?: Yes (2) Chronic combined systolic and diastolic CHF (congestive heart failure) Is this a current diagnosis for this admission?: Yes (3) CKD (chronic kidney disease) stage 3, GFR 30-59 ml/min Is this a current diagnosis for this admission?: Yes (4) Radiculopathy, lumbar region Is this a current diagnosis for this admission?: Yes - Time Time Spent with patient: 15-24 minutes
[2019-09-17] MEDS: ZOLPIDEM TARTRATE 5 MG TABLET PO PRN (00:28)
[2019-09-17] MEDS: DIPHENHYDRAMINE HCL 50 MG/ML VIAL IV PRN ×4 (00:28→23:08)
[2019-09-17] MEDS: MORPHINE SULFATE 10 MG/ML INJ IV PRN ×4 (00:29→23:08)
[2019-09-17 05:48] LABS: INTERNATIONAL RATION (INR) 2.61; PROTHROMBIN TIME 28.4 SEC (11.4-15.4)
[2019-09-17] MEDS: DOCUSATE SODIUM 100 MG CAPSULE PO SCH ×3 (05:51→21:48)
[2019-09-17] MEDS: PANTOPRAZOLE SODIUM 40 MG TABLET.DR PO SCH (05:51)
[2019-09-17] MEDS: FUROSEMIDE 80 MG TABLET PO SCH ×3 (05:51→21:49)
[2019-09-17] MEDS: ISOSORBIDE MONONITRATE 30 MG TAB.ER.24H PO SCH ×3 (05:52→21:46)
[2019-09-17] MEDS: ALLOPURINOL 100 MG TABLET PO SCH (10:08)
[2019-09-17] MEDS: LUBIPROSTONE 24 MCG CAPSULE PO SCH ×2 (10:08→21:48)
[2019-09-17] MEDS: CALCITRIOL 0.25 MCG CAPSULE PO SCH (10:08)
[2019-09-17] MEDS: AMLODIPINE BESYLATE 10 MG TABLET PO SCH (10:09)
[2019-09-17] MEDS: FERROUS SULFATE 325 MG TABLET PO SCH (10:09)
[2019-09-17] MEDS: GUAIFENESIN 600 MG TABLET.SA PO SCH (10:09)
[2019-09-17] MEDS: DULOXETINE HCL 30 MG CAPSULE.DR PO SCH (10:09)
[2019-09-17] MEDS: CARVEDILOL 12.5 MG TABLET PO SCH ×2 (10:09→21:47)
[2019-09-17] MEDS: MEDROXYPROGESTERONE ACET 10 MG TABLET PO SCH (10:11)
[2019-09-17] MEDS: SACUBITRIL/VALSARTAN 97 MG/103 MG TABLET PO SCH ×2 (10:11→21:50)
--- NOTE | 2019-09-17 18:58 | PDOC PROGRESS REPORT ---
Subjective Progress Note for:: 09/17/19 Subjective:: Patient continues to complain of pain, she is requiring opioid therapy, IV access is a challenge for this patient. She initially presented with upper abdominal pain that was felt to be due to Gall bladder disease she underwent HIDA scan this was negative for any cholecystitis or specifically gall bladder disease. She continues to complain of pain in her back, she was seen by physical therapy the recommendation was for her to have physical therapy in the hospital before discharge long-term care facility rehabilitation was not recommended by physical therapy. The x-ray of the lumbar spine that was done did not demonstrate any significant lesion, she cannot obtain MRI because she has AICD pacemaker implantation, we will request CT scan of the lumbar spine. Reason For Visit: ?CHOLECYSTITIS,CHRONIC SYSTOLIC HEART FAILURE Physical Exam Vital Signs: Temp Pulse Resp BP Pulse Ox 98.3 F 71 17 108/77 95 09/17/19 15:42 09/17/19 15:42 09/17/19 15:42 09/17/19 15:42 09/17/19 15:42 Intake & Output 09/16/19 09/17/19 09/18/19 06:59 06:59 06:59 Intake Total 1712 1080 960 Output Total 1 Balance 1712 1079 960 Weight 110.6 kg 110.9 kg 110 kg General appearance: PRESENT: no acute distress Eye exam: PRESENT: PERRLA Respiratory exam: PRESENT: clear to auscultation abdi Cardiovascular exam: PRESENT: +S1, +S2 GI/Abdominal exam: PRESENT: soft Neurological exam: PRESENT: alert Results Laboratory Results: 09/15/19 15:18 09/13/19 04:36 09/16/19 20:50 Urine Color YELLOW Urine Appearance CLEAR Urine pH 5.0 Ur Specific [place] 1.013 Urine Protein NEGATIVE Urine Glucose (UA) NEGATIVE Urine Ketones NEGATIVE Urine Blood NEGATIVE Urine Nitrite NEGATIVE Ur Leukocyte Esterase NEGATIVE Urine WBC (Auto) 0 Urine RBC (Auto) 0 09/08/19 09/08/19 09/08/19 01:08 09:55 09:55 Creatine Kinase 339 H CK-MB (CK-2) 5.41 H 6.19 H Troponin I 0.050 0.077 NT-Pro-B Natriuret Pep 26770 H 09/08/19 09/08/19 09/08/19 14:51 14:57 20:13 Creatine Kinase 336 H 305 H CK-MB (CK-2) 5.64 H Troponin I 0.063 NT-Pro-B Natriuret Pep 09/08/19 20:13 Creatine Kinase CK-MB (CK-2) 5.31 H Troponin I 0.053 NT-Pro-B Natriuret Pep Impressions: Abdomen Ultrasound 09/08/19 03:19 IMPRESSION: Thickening of the gallbladder wall. Acute cholecystitis is not excluded. Hepatobiliary Scan Nuclear Medicine 09/09/19 00:00 IMPRESSION: NORMAL STUDY WITHOUT CYSTIC OR COMMON DUCT OBSTRUCTION. Thoracentesis Ultrasound 09/09/19 08:00 IMPRESSION: SUCCESSFUL RIGHT THORACENTESIS USING ULTRASOUND GUIDANCE. Lumbar Spine X-Ray 09/15/19 00:00 IMPRESSION: No fracture or malalignment of the lumbar spine. Assessment & Plan - Diagnosis (1) Abdominal pain Qualifiers: Abdominal location: right upper quadrant Qualified Code(s): R10.11 - Right upper quadrant pain Is this a current diagnosis for this admission?: Yes (2) Chronic combined systolic and diastolic CHF (congestive heart failure) Is this a current diagnosis for this admission?: Yes (3) CKD (chronic kidney disease) stage 3, GFR 30-59 ml/min Is this a current diagnosis for this admission?: Yes (4) Radiculopathy, lumbar region Is this a current diagnosis for this admission?: Yes - Time Time Spent with patient: 25-34 minutes
[2019-09-17] MEDS: WARFARIN SODIUM 5 MG TABLET PO SCH (21:46)
[2019-09-17] MEDS: ATORVASTATIN CALCIUM 80 MG TABLET PO SCH (21:47)
[2019-09-17] MEDS ORDERED: WARFARIN SODIUM 5 MG TABLET PO SCH (22:00)
[2019-09-17] MEDS ORDERED: WARFARIN SODIUM 2 MG TABLET PO SCH (22:00)
--- NOTE | 2019-09-18 00:32 | RADIOLOGY REPORT (SQ) ---
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 COMPARISON: None. TECHNIQUE: CT scan of the lumbar spine without IV contrast. This exam was performed according to our departmental dose-optimization program, which includes automated exposure control, adjustment of the mA and/or kV according to patient size and/or use of iterative reconstruction technique. FINDINGS: No acute compression fracture is seen. The lumbar alignment is maintained. The disc spaces are preserved. No advanced canal stenosis is identified. The sacroiliac joints are intact. IMPRESSION: No acute lumbar findings.
[2019-09-18 04:58] LABS: INTERNATIONAL RATION (INR) 2.09; PROTHROMBIN TIME 23.8 SEC (11.4-15.4)
[2019-09-18] MEDS: DOCUSATE SODIUM 100 MG CAPSULE PO SCH ×3 (05:35→21:49)
[2019-09-18] MEDS: PANTOPRAZOLE SODIUM 40 MG TABLET.DR PO SCH (05:44)
[2019-09-18] MEDS: ISOSORBIDE MONONITRATE 30 MG TAB.ER.24H PO SCH ×3 (05:45→22:07)
[2019-09-18] MEDS: FUROSEMIDE 80 MG TABLET PO SCH ×3 (05:45→22:07)
[2019-09-18] MEDS: LUBIPROSTONE 24 MCG CAPSULE PO SCH ×2 (09:34→21:49)
[2019-09-18] MEDS: MEDROXYPROGESTERONE ACET 10 MG TABLET PO SCH (09:36)
[2019-09-18] MEDS: ALLOPURINOL 100 MG TABLET PO SCH (09:36)
[2019-09-18] MEDS: CALCITRIOL 0.25 MCG CAPSULE PO SCH (09:36)
[2019-09-18] MEDS: GUAIFENESIN 600 MG TABLET.SA PO SCH (09:36)
[2019-09-18] MEDS: SACUBITRIL/VALSARTAN 97 MG/103 MG TABLET PO SCH ×2 (09:36→21:59)
[2019-09-18] MEDS: AMLODIPINE BESYLATE 10 MG TABLET PO SCH (09:36)
[2019-09-18] MEDS: DULOXETINE HCL 30 MG CAPSULE.DR PO SCH (09:36)
[2019-09-18] MEDS: FERROUS SULFATE 325 MG TABLET PO SCH (09:37)
[2019-09-18] MEDS: CARVEDILOL 12.5 MG TABLET PO SCH ×2 (09:37→21:59)
--- NOTE | 2019-09-18 14:24 | PDOC PROGRESS REPORT ---
Subjective Progress Note for:: 09/18/19 Subjective:: Patient seen by the bedside, the CAT scan of the lumbar spine was normal, the HIDA scan of the abdomen was normal. She continues to complain of pain, the pain is more mechanical in nature, it is no form any pathologic lesion lumbar spine, I will discontinue Dilaudid at this point. She needs to engage in more physical activity Reason For Visit: ?CHOLECYSTITIS,CHRONIC SYSTOLIC HEART FAILURE Physical Exam Vital Signs: Temp Pulse Resp BP Pulse Ox 98.3 F 70 18 112/71 96 09/18/19 08:30 09/18/19 08:30 09/18/19 08:30 09/18/19 08:30 09/18/19 08:30 Intake & Output 09/17/19 09/18/19 09/19/19 06:59 06:59 06:59 Intake Total 1080 960 Output Total 1 1200 Balance 1079 -240 Weight 110.9 kg 114.3 kg General appearance: PRESENT: no acute distress Eye exam: PRESENT: PERRLA Respiratory exam: PRESENT: clear to auscultation abdi Cardiovascular exam: PRESENT: +S1, +S2 GI/Abdominal exam: PRESENT: soft Neurological exam: PRESENT: alert Results Laboratory Results: 09/15/19 15:18 09/13/19 04:36 09/08/19 09/08/19 09/08/19 01:08 09:55 09:55 Creatine Kinase 339 H CK-MB (CK-2) 5.41 H 6.19 H Troponin I 0.050 0.077 NT-Pro-B Natriuret Pep 96357 H 09/08/19 09/08/19 09/08/19 14:51 14:57 20:13 Creatine Kinase 336 H 305 H CK-MB (CK-2) 5.64 H Troponin I 0.063 NT-Pro-B Natriuret Pep 09/08/19 20:13 Creatine Kinase CK-MB (CK-2) 5.31 H Troponin I 0.053 NT-Pro-B Natriuret Pep Impressions: Abdomen Ultrasound 09/08/19 03:19 IMPRESSION: Thickening of the gallbladder wall. Acute cholecystitis is not excluded. Hepatobiliary Scan Nuclear Medicine 09/09/19 00:00 IMPRESSION: NORMAL STUDY WITHOUT CYSTIC OR COMMON DUCT OBSTRUCTION. Thoracentesis Ultrasound 09/09/19 08:00 IMPRESSION: SUCCESSFUL RIGHT THORACENTESIS USING ULTRASOUND GUIDANCE. Lumbar Spine X-Ray 09/15/19 00:00 IMPRESSION: No fracture or malalignment of the lumbar spine. Lumbar Spine CT 09/17/19 15:59 IMPRESSION: No acute lumbar findings. Assessment & Plan - Diagnosis (1) Abdominal pain Qualifiers: Abdominal location: right upper quadrant Qualified Code(s): R10.11 - Right upper quadrant pain Is this a current diagnosis for this admission?: Yes (2) Chronic combined systolic and diastolic CHF (congestive heart failure) Is this a current diagnosis for this admission?: Yes (3) CKD (chronic kidney disease) stage 3, GFR 30-59 ml/min Is this a current diagnosis for this admission?: Yes (4) Radiculopathy, lumbar region Is this a current diagnosis for this admission?: Yes - Time Time Spent with patient: 15-24 minutes
[2019-09-18 14:48] LABS: HEMATOCRIT 34.1 % (36.0-47.0); HEMOGLOBIN 10.7 g/dL (12.0-15.5); MEAN CORPUSCULAR HEMOGLOBIN 26.5 pg (27.0-33.4); MEAN CORPUSCULAR HGB CONC 31.5 g/dL (32.0-36.0); MEAN CORPUSCULAR VOLUME 84 fl (80-97); PLATELET COUNT 236 10^3/uL (150-450); RED BLOOD COUNT 4.06 10^6/uL (3.72-5.28); RED CELL DISTRIBUTION WIDTH 18.1 % (11.5-14.0); WHITE BLOOD COUNT 4.8 10^3/uL (4.0-10.5)
[2019-09-18] MEDS: WARFARIN SODIUM 5 MG TABLET PO SCH (21:59)
[2019-09-18] MEDS: ATORVASTATIN CALCIUM 80 MG TABLET PO SCH (21:59)
[2019-09-18] MEDS: ZOLPIDEM TARTRATE 5 MG TABLET PO PRN (22:07)
[2019-09-19 05:13] LABS: INTERNATIONAL RATION (INR) 2.22
[2019-09-19] MEDS: DOCUSATE SODIUM 100 MG CAPSULE PO SCH ×3 (05:15→23:35)
[2019-09-19] MEDS: FUROSEMIDE 80 MG TABLET PO SCH ×3 (05:25→23:41)
[2019-09-19] MEDS: PANTOPRAZOLE SODIUM 40 MG TABLET.DR PO SCH (05:25)
[2019-09-19] MEDS: ISOSORBIDE MONONITRATE 30 MG TAB.ER.24H PO SCH ×3 (06:45→23:38)
[2019-09-19] MEDS: ALLOPURINOL 100 MG TABLET PO SCH (10:47)
[2019-09-19] MEDS: FERROUS SULFATE 325 MG TABLET PO SCH (10:47)
[2019-09-19] MEDS: DULOXETINE HCL 30 MG CAPSULE.DR PO SCH (10:47)
[2019-09-19] MEDS: CALCITRIOL 0.25 MCG CAPSULE PO SCH (10:47)
[2019-09-19] MEDS: GUAIFENESIN 600 MG TABLET.SA PO SCH (10:47)
[2019-09-19] MEDS: LUBIPROSTONE 24 MCG CAPSULE PO SCH ×2 (10:48→23:35)
[2019-09-19] MEDS: CARVEDILOL 12.5 MG TABLET PO SCH ×2 (10:48→23:38)
[2019-09-19] MEDS: SACUBITRIL/VALSARTAN 97 MG/103 MG TABLET PO SCH ×2 (10:49→23:40)
[2019-09-19] MEDS: AMLODIPINE BESYLATE 10 MG TABLET PO SCH (10:49)
[2019-09-19] MEDS: MEDROXYPROGESTERONE ACET 10 MG TABLET PO SCH (10:50)
--- NOTE | 2019-09-19 20:08 | PDOC DISCHARGE SUMMARY ---
Impression - Admit/DC Date/PCP Admission Date/Primary Care Provider: 09/10/19 10:57 VU GUZMAN MD Discharge Date: 09/20/19 - Discharge Diagnosis (1) Abdominal pain Is this a current diagnosis for this admission?: Yes (2) Chronic combined systolic and diastolic CHF (congestive heart failure) Is this a current diagnosis for this admission?: Yes (3) CKD (chronic kidney disease) stage 3, GFR 30-59 ml/min Is this a current diagnosis for this admission?: Yes (4) Radiculopathy, lumbar region Is this a current diagnosis for this admission?: Yes - Additional Information Resuscitation Status: Full Code Referrals: VU GUZMAN MD [Primary Care Provider] - 10/05/19 9:45 am CRISTEL GARRIDO MD [ACTIVE STAFF] - 10/03/19 10:15 am Prescriptions: Zolpidem Tartrate [Ambien] 10 mg PO QHS #30 Home Medications: Allopurinol [Zyloprim 100 mg Tablet] 100 mg PO DAILY 09/08/19 Amlodipine Besylate [Norvasc 10 mg Tablet] 10 mg PO DAILY 09/08/19 Atorvastatin Calcium [Lipitor 80 mg Tablet] 80 mg PO QHS 09/08/19 Calcitriol [Rocaltrol 0.25 mcg Capsule] 0.25 mcg PO DAILY 09/08/19 Carvedilol [Coreg 12.5 mg Tablet] 12.5 mg PO Q12 09/08/19 Docusate Sodium [Colace] 50 mg PO Q8 09/08/19 Ferrous Sulfate [Feosol 325 mg Tablet] 325 mg PO DAILY 09/08/19 Furosemide [Lasix 80 mg Tablet] 80 mg PO Q8 09/08/19 Isosorbide Mononitrate [Imdur 30 mg Tablet.er] 60 mg PO Q8 09/08/19 Lubiprostone [Amitiza 24 Mcg Capsule] 24 mcg PO Q12 09/08/19 Medroxyprogesterone Acet [Provera 10 mg Tablet] 10 mg PO DAILY 09/08/19 Ondansetron HCl [Zofran 8 mg Tablet] 8 mg PO ASDIR PRN 09/08/19 Pantoprazole Sodium [Protonix [address] Tablet] 40 mg PO Q6AM 09/08/19 Sacubitril/Valsartan [Entresto 97 mg/103 mg Tablet] 1 tab PO Q12 09/08/19 Warfarin Sodium [Coumadin 5 mg Tablet] 5 mg PO DAILY 09/08/19 Warfarin Sodium [Coumadin 7.5 mg Tablet] 7.5 mg PO TUTH@1000 09/08/19 Zolpidem Tartrate [Ambien] 10 mg PO QHS #30 09/19/19 History of Present Illiness History of Present Illness: BERONICA YEUNG is a 44 year old female, She has history of chronic systolic and diastolic heart failure, she came to the emergency room for evaluation of abdominal pain, she was seen in the urgent care for evaluation of abdominal pain, she underwent a CAT scan of the abdomen and pelvis for the evaluation of the abdominal pain, the CAT scan demonstrated thickened gallbladder with possible stones, cholecystitis was suspected, she was then referred to the emergency room for further evaluation. In the emergency room she had ultrasound of the upper abdomen, it demonstrated thickened gallbladder no definitive stone was identified. She underlining chronic systolic and diastolic heart failure, the CAT scan of the abdomen and pelvis that was done outpatient demonstrated large pleural effusion but this was not demonstrated on the chest x-ray, the pleural effusion on chest x-ray was mild. Hospital Course Hospital Course: Patient was admitted for the management of upper abdominal pain, lumbar radiculopathy. Initially it was felt that the upper abdominal pain was from gallstone/cholecystitis. 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 She kept complaining of back pain with radiculopathy impeding her ability to engage in physical therapy, she has chronic systolic and diastolic heart failure with implantation of AICDpacemaker because of the pacemaker AICD MRI of the lumbar spine could not be obtained, a CAT scan of the lumbar spine was obtained and it was normal. There was no structural explanation for the back pain she was experiencing this most likely mechanical pain Physical Exam Vital Signs: Temp Pulse Resp BP Pulse Ox 98.3 F 64 16 113/70 100 09/19/19 17:09 09/19/19 17:09 09/19/19 17:09 09/19/19 17:09 09/19/19 17:09 Intake & Output 09/18/19 09/19/19 09/20/19 06:59 06:59 06:59 Intake Total 411 426 2982 Output Total 1200 1200 Balance -240 -840 1168 Weight 114.3 kg 115.9 kg General appearance: PRESENT: no acute distress Eye exam: PRESENT: PERRLA Respiratory exam: PRESENT: clear to auscultation abdi Cardiovascular exam: PRESENT: +S1, +S2 GI/Abdominal exam: PRESENT: soft Neurological exam: PRESENT: alert, CN II-XII grossly intact Results Laboratory Results: WBC 4.8 10^3/uL (4.0-10.5) 09/18/19 14:38 RBC 4.06 10^6/uL (3.72-5.28) 09/18/19 14:38 Hgb 10.7 g/dL (12.0-15.5) L 09/18/19 14:38 Hct 34.1 % (36.0-47.0) L 09/18/19 14:38 MCV 84 fl (80-97) 09/18/19 14:38 MCH 26.5 pg (27.0-33.4) L 09/18/19 14:38 MCHC 31.5 g/dL (32.0-36.0) L 09/18/19 14:38 RDW 18.1 % (11.5-14.0) H 09/18/19 14:38 Plt Count 236 10^3/uL (150-450) 09/18/19 14:38 Lymph % (Auto) 12.5 % (13-45) L 09/08/19 01:08 Clarke % (Auto) 7.0 % (3-13) 09/08/19 01:08 Eos % (Auto) 2.1 % (0-6) 09/08/19 01:08 Baso % (Auto) 0.9 % (0-2) 09/08/19 01:08 Absolute Neuts (auto) 3.6 10^3/uL (1.7-8.2) 09/08/19 01:08 Absolute Lymphs (auto) 0.6 10^3/uL (0.5-4.7) 09/08/19 01:08 Absolute Monos (auto) 0.3 10^3/uL (0.1-1.4) 09/08/19 01:08 Absolute Eos (auto) 0.1 10^3/uL (0.0-0.6) 09/08/19 01:08 Absolute Basos (auto) 0.0 10^3/uL (0.0-0.2) 09/08/19 01:08 Seg Neutrophils % 77.5 % (42-78) 09/08/19 01:08 PT 25.0 SEC (11.4-15.4) H 09/19/19 04:19 INR 2.22 09/19/19 04:19 APTT 31.9 SEC (23.5-35.8) 09/08/19 22:37 Sodium 138.7 mmol/L (137-145) 09/13/19 04:36 Potassium 3.6 mmol/L (3.6-5.0) 09/13/19 04:36 Chloride 107 mmol/L (98-107) 09/13/19 04:36 Carbon Dioxide 21 mmol/L (22-30) L 09/13/19 04:36 Anion Gap 11 (5-19) 09/13/19 04:36 BUN 48 mg/dL (7-20) H 09/13/19 04:36 Creatinine 2.16 mg/dL (0.52-1.25) H 09/13/19 04:36 Est GFR ( Amer) 30 (>60) L 09/13/19 04:36 Est GFR (MDRD) Non-Af 25 (>60) L 09/13/19 04:36 Glucose 78 mg/dL (75-110) 09/13/19 04:36 Hemoglobin A1c % 6.7 % (4.7-6.0) H 09/09/19 04:12 Calcium 7.5 mg/dL (8.4-10.2) L 09/13/19 04:36 Total Bilirubin 0.5 mg/dL (0.2-1.3) 09/09/19 04:12 Direct Bilirubin 0.2 mg/dL (0.0-0.4) 09/09/19 04:12 Neonat Total Bilirubin Not Reportable 09/09/19 04:12 Neonat Direct Bilirubin Not Reportable 09/09/19 04:12 Neonat Indirect Bili Not Reportable 09/09/19 04:12 AST 26 U/L (14-36) 09/09/19 04:12 ALT 12 U/L (<35) 09/09/19 04:12 Alkaline Phosphatase 116 U/L (38-126) 09/09/19 04:12 Lactate Dehydrogenase 238 U/L (120-246) 09/08/19 22:37 Creatine Kinase 305 U/L (30-135) H 09/08/19 20:13 CK-MB (CK-2) 5.31 ng/mL (<4.55) H 09/08/19 20:13 Troponin I 0.053 ng/mL 09/08/19 20:13 NT-Pro-B Natriuret Pep 53457 pg/mL (<125) H 09/08/19 01:08 Total Protein 4.9 g/dL (6.3-8.2) L 09/09/19 04:12 Albumin 2.4 g/dL (3.5-5.0) L 09/09/19 04:12 Urine Color YELLOW 09/16/19 20:50 Urine Appearance CLEAR 09/16/19 20:50 Urine pH 5.0 (5.0-9.0) 09/16/19 20:50 Ur Specific Stebbins 1.013 09/16/19 20:50 Urine Protein NEGATIVE mg/dL (NEGATIVE) 09/16/19 20:50 Urine Glucose (UA) NEGATIVE mg/dL (NEGATIVE) 09/16/19 20:50 Urine Ketones NEGATIVE mg/dL (NEGATIVE) 09/16/19 20:50 Urine Blood NEGATIVE (NEGATIVE) 09/16/19 20:50 Urine Nitrite NEGATIVE (NEGATIVE) 09/16/19 20:50 Urine Bilirubin NEGATIVE (NEGATIVE) 09/16/19 20:50 Urine Urobilinogen NEGATIVE mg/dL (<2.0) 09/16/19 20:50 Ur Leukocyte Esterase NEGATIVE (NEGATIVE) 09/16/19 20:50 Urine WBC (Auto) 0 /HPF 09/16/19 20:50 Urine RBC (Auto) 0 /HPF 09/16/19 20:50 U Hyaline Cast (Auto) 1 /LPF 09/16/19 20:50 Urine Bacteria (Auto) TRACE /HPF 09/08/19 01:14 Squamous Epi Cells Auto <1 /HPF 09/16/19 20:50 Urine Mucus (Auto) RARE /LPF 09/16/19 20:50 Urine Ascorbic Acid NEGATIVE (NEGATIVE) 09/16/19 20:50 Fluid Type PLEURAL 09/09/19 15:30 Fluid Source LUNG 09/09/19 15:30 Fluid Color STRAW 09/09/19 15:30 Fluid Appearance CLEAR 09/09/19 15:30 Fluid Viscosity LIQUID 09/09/19 15:30 Fluid WBC 11 /uL 09/09/19 15:30 Fluid RBC 477 /uL 09/09/19 15:30 Fluid Seg Neutrophils 44 % 09/09/19 15:30 Fluid Lymphocytes 14 % 09/09/19 15:30 Fluid Monocytes 42 % 09/09/19 15:30 Fluid Eosinophils 0 % 09/09/19 15:30 Fluid Basophils 0 % 09/09/19 15:30 Fluid Glucose 130 mg/dL (.) 09/09/19 15:30 Fluid LDH 47 IU/L (.) 09/09/19 15:30 Fluid Amylase 11 U/L (.) 09/09/19 15:30 09/08/19 09/08/19 09/08/19 01:08 09:55 14:57 CK-MB (CK-2) 5.41 H 6.19 H 5.64 H Troponin I 0.050 0.077 0.063 NT-Pro-B Natriuret Pep 47151 H 09/08/19 20:13 CK-MB (CK-2) 5.31 H Troponin I 0.053 NT-Pro-B Natriuret Pep Impressions: Chest X-Ray 09/08/19 00:46 IMPRESSION: Cardiomegaly. Small right pleural effusion with adjacent airspace opacity copyright 2011 [employer]- All Rights Reserved Abdomen Ultrasound 09/08/19 03:19 IMPRESSION: Thickening of the gallbladder wall. Acute cholecystitis is not excluded. Chest X-Ray 09/09/19 00:00 IMPRESSION: No pneumothorax following right-sided thoracentesis. Hepatobiliary Scan Nuclear Medicine 09/09/19 00:00 IMPRESSION: NORMAL STUDY WITHOUT CYSTIC OR COMMON DUCT OBSTRUCTION. Thoracentesis Ultrasound 09/09/19 08:00 IMPRESSION: SUCCESSFUL RIGHT THORACENTESIS USING ULTRASOUND GUIDANCE. Lumbar Spine X-Ray 09/15/19 00:00 IMPRESSION: No fracture or malalignment of the lumbar spine. Lumbar Spine CT 09/17/19 15:59 IMPRESSION: No acute lumbar findings. Stroke Is this a Stroke Patient?: No Acute Heart Failure - Is this a Heart Failure Patient?: No
[2019-09-19] MEDS: WARFARIN SODIUM 5 MG TABLET PO SCH (23:38)
[2019-09-19] MEDS: ATORVASTATIN CALCIUM 80 MG TABLET PO SCH (23:38)
[2019-09-19] MEDS: ZOLPIDEM TARTRATE 5 MG TABLET PO PRN (23:40)
[2019-09-20 05:15] LABS: INTERNATIONAL RATION (INR) 2.34; PROTHROMBIN TIME 26.1 SEC (11.4-15.4)
[2019-09-20] MEDS: PANTOPRAZOLE SODIUM 40 MG TABLET.DR PO SCH (06:50)
[2019-09-20] MEDS: FUROSEMIDE 80 MG TABLET PO SCH (06:51)
[2019-09-20] MEDS: DOCUSATE SODIUM 100 MG CAPSULE PO SCH (06:51)
[2019-09-20] MEDS: ISOSORBIDE MONONITRATE 30 MG TAB.ER.24H PO SCH (06:51)
[2019-09-20] MEDS: LUBIPROSTONE 24 MCG CAPSULE PO SCH (10:31)
[2019-09-20] MEDS: DULOXETINE HCL 30 MG CAPSULE.DR PO SCH (10:33)
[2019-09-20] MEDS: FERROUS SULFATE 325 MG TABLET PO SCH (10:34)
[2019-09-20] MEDS: GUAIFENESIN 600 MG TABLET.SA PO SCH (10:34)
[2019-09-20] MEDS: SACUBITRIL/VALSARTAN 97 MG/103 MG TABLET PO SCH (10:34)
[2019-09-20] MEDS: CALCITRIOL 0.25 MCG CAPSULE PO SCH (10:34)
[2019-09-20] MEDS: ALLOPURINOL 100 MG TABLET PO SCH (10:34)
[2019-09-20] MEDS: MEDROXYPROGESTERONE ACET 10 MG TABLET PO SCH (10:35)
[2019-09-20 13:20] VITALS: BP 96/56
== END 2019-09-20 14:06 | disposition home or self-care (01) | DRG 292 ==
LOC: ER 00:06 → INTOOBSV 06:24 → EH 06:24 → 3N 08:10 → OBSVTOIN 09-10 10:57 → 3N 09-15 20:30
PROVIDERS: ADMIT Internal Medicine; ATTEND Internal Medicine
PROC: 0W993ZZ Drainage of Right Pleural Cavity, Percutaneous Approach (ICD-10-PCS; principal; 2019-09-09)
PROC: 0DBA8ZX Excision of Jejunum, Via Natural or Artificial Opening Endoscopic, Diagnostic (ICD-10-PCS; 2019-09-11)
DX: I13.0 Hypertensive heart and chronic kidney disease with heart failure and stage 1 through stage 4 chronic kidney disease, or unspecified chronic kidney disease (principal); J90 Pleural effusion, not elsewhere classified; I50.42 Chronic combined systolic (congestive) and diastolic (congestive) heart failure; D63.1 Anemia in chronic kidney disease; Z79.01 Long term (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 of 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; N18.3 Chronic kidney disease, stage 3 (moderate); I25.10 Atherosclerotic heart disease of native coronary artery without angina pectoris; J44.9 Chronic obstructive pulmonary disease, unspecified; K21.9 Gastro-esophageal reflux disease without esophagitis; F32.9 Major depressive disorder, single episode, unspecified; E66.01 Morbid (severe) obesity due to excess calories; I25.5 Ischemic cardiomyopathy; M54.16 Radiculopathy, lumbar region; R09.02 Hypoxemia; I25.2 Old myocardial infarction; Z86.711 Personal history of pulmonary embolism; Z95.5 Presence of coronary angioplasty implant and graft; Z95.810 Presence of automatic (implantable) cardiac defibrillator; Z91.11 Patient's noncompliance with dietary regimen; Z82.49 Family history of ischemic heart disease and other diseases of the circulatory system; Z88.6 Allergy status to analgesic agent; Z88.1 Allergy status to other antibiotic agents; Z98.84 Bariatric surgery status; Z86.718 Personal history of other venous thrombosis and embolism; Z68.38 Body mass index [BMI] 38.0-38.9, adult
CPT/HCPCS: 00731; 32555; 36415; 43239; 71045; 72100; 72131; 76705; 78226; 80048; 80053; 81001; 82150; 82550; 82553; 82945; 83036; 83615; 83880; 84484; 85025; 85027; 85610; 85730; 87070; 87075; 87101; 87205; 88305; 88342; 89050; 93005; 93010; 93306; 94640; 94660; 96374; 96375; 96376; 99285; A9537; G0378; J0171; J1170; J1200; J1940; J2270; J2405; J2704; J3480; J3490; J7060; J7620; Q9969

== ENCOUNTER 2019-10-09 05:22 | Inpatient (IN) | payer MEDICARE, MEDICAID ==
[2019-10-09 06:33] LABS: ABSOLUTE BASOPHILS # (AUTO) 0.1 10^3/uL (0.0-0.2); ABSOLUTE EOSINOPHILS # (AUTO) 0.1 10^3/uL (0.0-0.6); ABSOLUTE LYMPHOCYTES (AUTO) 0.6 10^3/uL (0.5-4.7); ABSOLUTE MONOCYTES (AUTO) 0.3 10^3/uL (0.1-1.4); ABSOLUTE NEUT (AUTO) 3.1 10^3/uL (1.7-8.2); BASOPHILS % (AUTO) 1.4 % (0-2); EOSINOPHILS % (AUTO) 2.8 % (0-6); HEMATOCRIT 40.4 % (36.0-47.0); HEMOGLOBIN 12.9 g/dL (12.0-15.5); LYMPHOCYTES % (AUTO) 13.4 % (13-45); MEAN CORPUSCULAR HEMOGLOBIN 27.2 pg (27.0-33.4); MEAN CORPUSCULAR VOLUME 85 fl (80-97); MONOCYTES % (AUTO) 8.1 % (3-13); PLATELET COUNT 242 10^3/uL (150-450); RED BLOOD COUNT 4.75 10^6/uL (3.72-5.28); RED CELL DISTRIBUTION WIDTH 19.6 % (11.5-14.0); SEGMENTED NEUTROPHILS % (AUTO) 74.3 % (42-78); TOTAL CELLS COUNTED % (AUTO) 100 %; WHITE BLOOD COUNT 4.2 10^3/uL (4.0-10.5)
[2019-10-09 07:15] LABS: TROPONIN I 0.047 ng/mL
[2019-10-09 07:51] LABS: INTERNATIONAL RATION (INR) 1.12; PROTHROMBIN TIME 14.5 SEC (11.4-15.4)
[2019-10-09] MEDS ORDERED: MORPHINE SULFATE 10 MG/ML INJ IV ONE (08:08)
[2019-10-09] MEDS ORDERED: DIPHENHYDRAMINE HCL 50 MG/ML VIAL IV ONE (08:09)
--- NOTE | 2019-10-09 08:41 | RADIOLOGY REPORT (SQ) ---
EXAM DESCRIPTION: CHEST 2 VIEWS COMPLETED DATE/TIME: 10/09/2019 6:42 am REASON FOR STUDY: dyspnea COMPARISON: 09/09/2019. TECHNIQUE: Frontal and lateral radiographic views of the chest acquired. NUMBER OF VIEWS: Two view. LIMITATIONS: None. FINDINGS: LUNGS AND PLEURA: Cardiomegaly with vascular congestion. Bilateral effusions, right great er than left. No pneumothorax. MEDIASTINUM AND HILAR STRUCTURES: Grossly stable. HEART AND VASCULAR STRUCTURES: As above. BONES: No acute findings. HARDWARE: Left pacer. OTHER: No other significant finding. IMPRESSION: Findings consistent with congestive failure including cardiomegaly, vascular congestion and effusions. TECHNICAL DOCUMENTATION: JOB ID: [id number] [employer]- All Rights Reserved Reading location - IP/workstation name: [email or web address]
[2019-10-09 09:31] LABS: ALBUMIN 2.8 g/dL (3.5-5.0); ALKALINE PHOSPHATASE 125 U/L (38-126); ANION GAP 7 (5-19); ASPARTATE AMINO TRANSFERASE 27 U/L (14-36); BILIRUBIN,DIRECT 0.3 mg/dL (0.0-0.4); BILIRUBIN,TOTAL 0.8 mg/dL (0.2-1.3); BLOOD UREA NITROGEN 33 mg/dL (7-20); CALCIUM 8.2 mg/dL (8.4-10.2); CARBON DIOXIDE 21 mmol/L (22-30); CHLORIDE 110 mmol/L (98-107); GLUCOSE 167 mg/dL (75-110); POTASSIUM 3.6 mmol/L (3.6-5.0); TOTAL PROTEIN 5.5 g/dL (6.3-8.2)
[2019-10-09] MEDS ORDERED: FUROSEMIDE INJ/PF 40 MG/4 ML SDV IV ONE (10:51)
--- NOTE | 2019-10-09 10:55 | ER Document Report ---
ED General - General Chief Complaint: Shortness Of Breath Stated Complaint: SHORTNESS OF BREATH Time Seen by Provider: 10/09/19 06:03 Primary Care Provider: VU GUZMAN MD [Primary Care Provider] - Follow up as needed TRAVEL OUTSIDE OF THE [place] IN LAST 30 DAYS: No - HPI Notes: Patient presents emergency department for evaluation. There is a 44-year-old female with multiple medical issues, comes to the emergency department for evaluation of shortness of breath. She states is been ongoing for the last 3 days. Her orthopnea is worsened, she is also short of breath with exertion. She denies any fevers. She has had a minimally productive cough. She has pain that she describes as a squeezing in her head to her chest and her back. None of this pain is new. She states she has been taking her medications as prescribed. - Related Data Allergies/Adverse Reactions: hydrocodone bitartrate [From Vicodin] Allergy (Verified 07/27/18 11:36) Hives hydromorphone HCl [From Dilaudid] Allergy (Verified 05/16/19 14:28) Hives levofloxacin [From Levaquin] Allergy (Verified 07/27/18 11:36) Hives oxycodone HCl [From Percocet] Allergy (Verified 07/27/18 11:36) Hives tramadol [Tramadol] Allergy (Verified 07/27/18 11:36) Hives Home Medications: List reviewed, please see note Past Medical History - General Information source: Patient, [facility] Records - Social History Smoking Status: Never Smoker Family History: None, Reviewed & Not Pertinent, Hypertension Patient has suicidal ideation: No Patient has homicidal ideation: No - Past Medical History Cardiac Medical History: Reports: Hx Congestive Heart Failure - Chronic systolic and diastolic heart failure, Hx Coronary Artery Disease, Hx Heart Attack - STENTS/DEFIBRILLATOR/PACEMAKER, Hx Hypertension, Hx Pulmonary Embolism Pulmonary Medical History: Reports: Hx COPD, Hx Pneumonia Denies: Hx Asthma, Hx Bronchitis, Hx Tuberculosis Neurological Medical History: Denies: Hx Cerebrovascular Accident, Hx Seizures Endocrine Medical History: Reports: Hx Diabetes Mellitus Type 2 - non compliant (pt has snacks in her suitcase etc) Renal/ Medical History: Reports: Hx Renal Insufficiency. Denies: Hx Peritoneal Dialysis GI Medical History: Reports: Hx Gastroesophageal Reflux Disease Musculoskeletal Medical History: Denies Hx Arthritis Skin Medical History: Reports Hx Cellulitis - Left upper extremity cellulitis week and a half ago Psychiatric Medical History: Reports: Hx Depression Past Surgical History: Reports: Hx Cardiac Catheterization - stent x1, Hx Cardiac Surgery - pace/defib, Hx Coronary Stent, Hx Internal Defibrillator, Hx Pacemaker - AICD, Other - Left-sided biventricular [employer] defibrillator 02/26/2018, Lui Milner. Denies: Hx Hysterectomy - Immunizations Hx Diphtheria, Pertussis, Tetanus Vaccination: No Hx Pneumococcal Vaccination: 06/28/13 Review of Systems - Review of Systems Constitutional: No symptoms reported EENT: No symptoms reported Cardiovascular: See HPI Respiratory: See HPI Gastrointestinal: No symptoms reported Genitourinary: No symptoms reported Musculoskeletal: No symptoms reported Skin: No symptoms reported Neurological/Psychological: No symptoms reported Physical Exam - Vital signs Vitals: Temp Pulse Resp BP Pulse Ox 98.1 F 99 24 H 135/77 H 97 10/09/19 05:30 10/09/19 05:30 10/09/19 05:30 10/09/19 05:30 10/09/19 05:30 - Notes Notes: This is an obese 44-year-old female who appears older than her stated age in a mild amount of distress. She has tachypnea, increased work of breathing, with intermittent tripoding. Vital signs reviewed, please refer to chart. Head is normocephalic, atraumatic. Pupils equal round, reactive to light. Neck is supple without meningismus. Heart is regular rate and rhythm. Lungs reveal bibasilar rales and diminished breath sounds in the bases, right greater than left. Abdomen is soft, nontender, normoactive bowel sounds throughout. Extremities without cyanosis, clubbing. Posterior calves are nontender. Peripheral pulses are equal. Skin is warm and dry. Patient is awake, alert, neurological exam is nonfocal. Course - Re-evaluation Re-evalutation: 10/09/19 10:57 Patient presents emergency department for evaluation. 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 Laboratory investigations were obtained. She had multiple hemolyzed specimens. During the course of her stay, the patient's breathing became worse. She was placed on BiPAP. I eventually was able to evaluate her metabolic panel. She is not markedly hypokalemic. Her proBNP is elevated. Her troponin is mildly elevated, but it is still under the threshold for N STEMI. She has had multiple higher troponins in the past, likely secondary to her renal insufficiency. Her kidney function is actually better than it has been in some time. I did feel comfortable ordering some IV Lasix. 40 mg administered. Patient's chest x-ray is consistent with an exacerbation of her congestive heart failure. I spoke with Dr. Guzman, he will admit the patient for further care. - Vital Signs Vital signs: Temp Pulse Resp BP Pulse Ox 98.1 F 99 30 H 140/105 H 97 10/09/19 05:30 10/09/19 05:30 10/09/19 09:02 10/09/19 09:02 10/09/19 09:02 - Laboratory Result Diagrams: 10/09/19 06:15 10/09/19 09:00 Laboratory results interpreted by me: 10/09/19 10/09/19 10/09/19 06:15 06:15 09:00 RDW 19.6 H Chloride 110 H Carbon Dioxide 21 L BUN 33 H Creatinine 1.73 H Est GFR ( Amer) 39 L Est GFR (MDRD) Non-Af 32 L Glucose 167 H Calcium 8.2 L NT-Pro-B Natriuret Pep 54546 H Total Protein 5.5 L Albumin 2.8 L - Diagnostic Test Radiology reviewed: Image reviewed, Reports reviewed Radiology results interpreted by me: 10/09/19 10:58 Chest X-Ray 10/09/19 06:08 IMPRESSION: Findings consistent with congestive failure including cardiomegaly, vascular congestion and effusions. - EKG Interpretation by Me Additional EKG results interpreted by me: 10/09/19 10:58 Ventricular paced at 93 bpm. No change in compared to prior study of September 08, 2019. Discharge - Discharge Clinical Impression: Acute systolic heart failure, Shortness of breath Condition: Stable Disposition: ADMITTED INPATIENT Admitting Provider: Jacinta Unit Admitted: [facility] Referrals: VU GUZMAN MD [Primary Care Provider] - Follow up as needed
[2019-10-09 12:43] LABS: APPEARANCE,URINE SLIGHTLY-CLOUDY; BILIRUBIN,URINE NEGATIVE (NEGATIVE); COLOR,URINE YELLOW; GLUCOSE, URINE NEGATIVE (NEGATIVE); KETONES,URINE NEGATIVE (NEGATIVE); LEUKOCYTE ESTERASE,URINE TRACE (NEGATIVE); NITRITE,URINE NEGATIVE (NEGATIVE); PROTEIN,URINE 100 mg/dL (NEGATIVE); URINE SPECIFIC GRAVITY 1.012; UROBILINOGEN,URINE NEGATIVE mg/dL (<2.0)
[2019-10-09] MEDS ORDERED: INFLUENZA QUAD (6MOS+) 2019-20 VAC 0.5 ML SYR IM ONE (13:48)
--- NOTE | 2019-10-09 14:00 | PDOC H&P ---
History of Present Illness Admission Date/PCP: 10/09/19 11:23 VU GUZMAN MD History of Present Illness: BERONICA YEUNG is a 44 year old female, she is well-known to me, she has a history of chronic combined systolic and diastolic heart failure, pulmonary hypertension, nephrotic syndrome, she came to the emergency room for evaluation of shortness of breath, a chest x-ray was done, it demonstrated bilateral pleural effusion right more than left, the right pleural effusion is extensive involving over half of the space of the pleura space. In the emergency room she required noninvasive positive pressure ventilation, BiPAP. She was recently admitted in this hospital, she was discharged on September 19, 2019, on that admission she had a 2D echo done, the 2D echo demonstrated moderate to severely reduced left ventricular systolic function, the estimated ejection fraction was 20 to 25%. The right ventricle systolic function was also moderately reduced there was severe pulmonary hypertension. In the emergency room the BNP was 28,300. She is medically optimized she is on evidence-based beta-bear, Entresto, she has a combined pacemaker defibrillator device. She is obviously in acute CHF she will be admitted and optimized, she will be treated with Lasix infusion for symptom control and also gets thoracentesis. Past Medical History Cardiac Medical History: Reports: Congestive Heart Failure - Chronic systolic and diastolic heart failure, Coronary Artery Disease, Myocardial Infarction - STENTS/DEFIBRILLATOR/PACEMAKER, Hypertension, Pulmonary Embolism Pulmonary Medical History: Reports: Chronic Obstructive Pulmonary Disease (COPD), Pneumonia Endocrine Medical History: Reports: Diabetes Mellitus Type 2 - non compliant (pt has snacks in her suitcase etc) GI Medical History: Reports: Gastroesophageal Reflux Disease Psychiatric Medical History: Reports: Depression Hematology: Reports: Anemia Past Surgical History Past Surgical History: Reports: Cardiac Catheterization - stent x1, Coronary Stent, Internal Defibrillator, Pacemaker - AICD, Other - Left-sided biventricular Med[employer]onic defibrillator 02/26/2018, Lui Milner Social History Smoking Status: Never Smoker Frequency of Alcohol Use: None Hx Recreational Drug Use: No Drugs: None Hx Prescription Drug Abuse: No Family History Family History: None, Reviewed & Not Pertinent, Hypertension Parental Family History Reviewed: Yes Children Family History Reviewed: Yes Sibling(s) Family History Reviewed.: Yes Medication/Allergy Home Medications: Allopurinol [Zyloprim 100 mg Tablet] 100 mg PO DAILY 09/08/19 Amlodipine Besylate [Norvasc 10 mg Tablet] 10 mg PO DAILY 09/08/19 Atorvastatin Calcium [Lipitor 80 mg Tablet] 80 mg PO QHS 09/08/19 Calcitriol [Rocaltrol 0.25 mcg Capsule] 0.25 mcg PO DAILY 09/08/19 Carvedilol [Coreg 12.5 mg Tablet] 12.5 mg PO Q12 09/08/19 Docusate Sodium [Colace] 50 mg PO Q8 09/08/19 Ferrous Sulfate [Feosol 325 mg Tablet] 325 mg PO DAILY 09/08/19 Furosemide [Lasix 80 mg Tablet] 80 mg PO Q8 09/08/19 Isosorbide Mononitrate [Imdur 30 mg Tablet.er] 60 mg PO Q8 09/08/19 Lubiprostone [Amitiza 24 Mcg Capsule] 24 mcg PO Q12 09/08/19 Medroxyprogesterone Acet [Provera 10 mg Tablet] 10 mg PO DAILY 09/08/19 Ondansetron HCl [Zofran 8 mg Tablet] 8 mg PO ASDIR PRN 09/08/19 Pantoprazole Sodium [Protonix [address] Tablet] 40 mg PO Q6AM 09/08/19 Sacubitril/Valsartan [Entresto 97 mg/103 mg Tablet] 1 tab PO Q12 09/08/19 Warfarin Sodium [Coumadin 5 mg Tablet] 5 mg PO DAILY 09/08/19 Warfarin Sodium [Coumadin 7.5 mg Tablet] 7.5 mg PO TUTH@1000 09/08/19 Zolpidem Tartrate [Ambien] 10 mg PO QHS #30 09/19/19 Allergies/Adverse Reactions: hydrocodone bitartrate [From Vicodin] Allergy (Verified 07/27/18 11:36) Hives hydromorphone HCl [From Dilaudid] Allergy (Verified 05/16/19 14:28) Hives levofloxacin [From Levaquin] Allergy (Verified 07/27/18 11:36) Hives oxycodone HCl [From Percocet] Allergy (Verified 07/27/18 11:36) Hives tramadol [Tramadol] Allergy (Verified 07/27/18 11:36) Hives Review of Systems Constitutional: ABSENT: chills, fever(s), headache(s), weight gain, weight loss Eyes: ABSENT: visual disturbances Ears: ABSENT: hearing changes Cardiovascular: PRESENT: dyspnea on exertion Respiratory: ABSENT: cough, hemoptysis Gastrointestinal: PRESENT: abdominal pain. ABSENT: constipation, diarrhea, hematemesis, hematochezia, nausea, vomiting Genitourinary: ABSENT: dysuria, hematuria Musculoskeletal: ABSENT: joint swelling Integumentary: ABSENT: rash, wounds Neurological: ABSENT: abnormal gait, abnormal speech, confusion, dizziness, focal weakness, syncope Psychiatric: ABSENT: anxiety, depression, homidical ideation, suicidal ideation Endocrine: ABSENT: cold intolerance, heat intolerance, menstrual abnormalities, polydipsia, polyuria Hematologic/Lymphatic: ABSENT: easy bleeding, easy bruising, lymphadenopathy Physical Exam Vital Signs: Temp Pulse Resp BP Pulse Ox 97.5 F 98 24 H 159/85 H 98 10/09/19 13:10 10/09/19 13:10 10/09/19 13:10 10/09/19 13:10 10/09/19 13:10 Intake & Output 10/08/19 10/09/19 10/10/19 06:59 06:59 06:59 Weight 108.862 kg Head exam: PRESENT: other - Patient is alert oriented on BiPAP Eye exam: PRESENT: PERRLA Respiratory exam: PRESENT: rales Cardiovascular exam: PRESENT: +S1, +S2 GI/Abdominal exam: PRESENT: soft Extremities exam: PRESENT: pedal edema Neurological exam: PRESENT: alert, CN II-XII grossly intact Results Laboratory Results: 10/09/19 06:15 10/09/19 09:00 10/09/19 10/09/19 10/09/19 06:15 06:15 07:29 WBC 4.2 RBC 4.75 Hgb 12.9 Hct 40.4 MCV 85 MCH 27.2 MCHC 32.0 RDW 19.6 H Plt Count 242 Seg Neutrophils % 74.3 Sodium Cancelled Cancelled Potassium Cancelled Cancelled Chloride Cancelled Cancelled Carbon Dioxide Cancelled Cancelled Anion Gap Cancelled Cancelled BUN Cancelled Cancelled Creatinine Cancelled Cancelled Est GFR ( Amer) Cancelled Cancelled Est GFR (Non-Af Amer) Cancelled Cancelled Glucose Cancelled Cancelled Calcium Cancelled Cancelled Total Bilirubin Cancelled Cancelled AST Cancelled Cancelled Alkaline Phosphatase Cancelled Cancelled Total Protein Cancelled Cancelled Albumin Cancelled Cancelled Urine Color Urine Appearance Urine pH Ur Specific [place] Urine Protein Urine Glucose (UA) Urine Ketones Urine Blood Urine Nitrite Ur Leukocyte Esterase Urine WBC (Auto) Urine RBC (Auto) 10/09/19 10/09/19 10/09/19 08:20 09:00 12:11 WBC RBC Hgb Hct MCV MCH MCHC RDW Plt Count Seg Neutrophils % Sodium Cancelled 138.2 Potassium Cancelled 3.6 Chloride Cancelled 110 H Carbon Dioxide Cancelled 21 L Anion Gap Cancelled 7 BUN Cancelled 33 H Creatinine Cancelled 1.73 H Est GFR ( Amer) Cancelled 39 L Est GFR (Non-Af Amer) Cancelled Glucose Cancelled 167 H Calcium Cancelled 8.2 L Total Bilirubin Cancelled 0.8 AST Cancelled 27 Alkaline Phosphatase Cancelled 125 Total Protein Cancelled 5.5 L Albumin Cancelled 2.8 L Urine Color YELLOW Urine Appearance SLIGHTLY-CLOUDY Urine pH 5.0 Ur Specific [place] 1.012 Urine Protein 100 H Urine Glucose (UA) NEGATIVE Urine Ketones NEGATIVE Urine Blood MODERATE H Urine Nitrite NEGATIVE Ur Leukocyte Esterase TRACE H Urine WBC (Auto) 4 Urine RBC (Auto) 6 10/09/19 06:15 Troponin I 0.047 NT-Pro-B Natriuret Pep 17378 H Impressions: Chest X-Ray 10/09/19 06:08 IMPRESSION: Findings consistent with congestive failure including cardiomegaly, vascular congestion and effusions. Assessment & Plan - Diagnosis (1) Acute combined systolic (congestive) and diastolic (congestive) heart failure Is this a current diagnosis for this admission?: Yes Plan: She has underlining chronic combined systolic and diastolic heart failure now present with acute combined systolic and diastolic heart failure, there is no apparent precipitating factor at this time, cardiac enzymes to be drawn to rule out acute ischemic cardiomyopathy, she has bilateral pleural effusion more on the right than the left, presently requiring noninvasive positive pressure ventilation, BiPAP. Thoracentesis will be ordered, patient will be started on Lasix infusion for symptom control, she will continue her regular evidence-based beta-bear and Entresto, anticoagulant with Coumadin. She takes Coumadin because of DVT and pulmonary embolism. (2) CKD (chronic kidney disease) stage 3, GFR 30-59 ml/min Is this a current diagnosis for this admission?: Yes Plan: She has chronic kidney disease stage III, history of nephrotic syndrome, the furosemide infusion will probably worsen the GFR, we will continue to monitor kidney function very closely
[2019-10-09 14:34] LABS: INTERNATIONAL RATION (INR) 1.11; PROTHROMBIN TIME 14.4 SEC (11.4-15.4)
[2019-10-09 14:36] LABS: URINE PROTEIN 112.1 mg/dL (<12)
[2019-10-09 14:57] LABS: CREATINE KINASE MB 4.05 ng/mL (<4.55); TROPONIN I 0.067 ng/mL
[2019-10-09] MEDS ORDERED: CHOLECALCIFEROL 400 UNIT PO SCH (15:00)
[2019-10-09] MEDS: ISOSORBIDE DINITRATE 20 MG TABLET PO SCH ×2 (16:24→21:26)
[2019-10-09] MEDS: CALCITRIOL 0.25 MCG CAPSULE PO SCH (16:24)
[2019-10-09] MEDS: LUBIPROSTONE 24 MCG CAPSULE PO SCH ×2 (16:24→21:27)
[2019-10-09] MEDS: ALLOPURINOL 100 MG TABLET PO SCH (16:24)
[2019-10-09] MEDS: FERROUS SULFATE 325 MG TABLET PO SCH (16:24)
[2019-10-09] MEDS: SACUBITRIL/VALSARTAN 97 MG/103 MG TABLET PO SCH ×2 (16:24→21:26)
[2019-10-09] MEDS: AMLODIPINE BESYLATE 10 MG TABLET PO SCH (16:24)
[2019-10-09] MEDS: CHOLECALCIFEROL (D3) 400 UNIT TABLET PO SCH (16:24)
[2019-10-09] MEDS: NORMAL SALINE 250 ML with FUROSEMIDE 250 MG IV PRN ×2 (16:24)
--- NOTE | 2019-10-09 17:36 | EKG REPORT ---
SEVERITY:- ABNORMAL ECG - VENTRICULAR-PACED RHYTHM : Confirmed by: Megan Dozier 09-Oct-2019 17:35:43
--- NOTE | 2019-10-09 18:05 | EKG REPORT ---
SEVERITY:- ABNORMAL ECG - VENTRICULAR-PACED RHYTHM : Confirmed by: Megan Dozier 09-Oct-2019 18:04:44
[2019-10-09 20:59] LABS: HEMATOCRIT 39.6 % (36.0-47.0); HEMOGLOBIN 12.8 g/dL (12.0-15.5); MEAN CORPUSCULAR HEMOGLOBIN 27.5 pg (27.0-33.4); MEAN CORPUSCULAR HGB CONC 32.3 g/dL (32.0-36.0); MEAN CORPUSCULAR VOLUME 85 fl (80-97); PLATELET COUNT 218 10^3/uL (150-450); RED BLOOD COUNT 4.66 10^6/uL (3.72-5.28); RED CELL DISTRIBUTION WIDTH 19.5 % (11.5-14.0); WHITE BLOOD COUNT 5.1 10^3/uL (4.0-10.5)
[2019-10-09 21:03] LABS: PROTHROMBIN TIME 14.2 SEC (11.4-15.4)
[2019-10-09] MEDS: WARFARIN SODIUM 3 MG TABLET PO SCH (21:26)
[2019-10-09] MEDS: ATORVASTATIN CALCIUM 80 MG TABLET PO SCH (21:26)
[2019-10-09] MEDS: TRAMADOL HCL 50 MG TABLET PO PRN (21:27)
[2019-10-09] MEDS: ZOLPIDEM TARTRATE 5 MG TABLET PO SCH (21:27)
[2019-10-09 21:30] LABS: CREATINE KINASE MB 4.95 ng/mL (<4.55); TROPONIN I 0.054 ng/mL
[2019-10-09] MEDS ORDERED: (PENDING PHARMACY ID) (Zolpidem Tartrate [Ambien] 10 MG) PO SCH (22:00)
[2019-10-09] MEDS ORDERED: (PENDING PHARMACY ID) (Doxepin Hcl [Silenor] 6 MG) PO SCH (22:00)
[2019-10-09 22:06] LABS: APPEARANCE,URINE CLEAR; BILIRUBIN,URINE NEGATIVE (NEGATIVE); COLOR,URINE YELLOW; GLUCOSE, URINE NEGATIVE (NEGATIVE); KETONES,URINE NEGATIVE (NEGATIVE); LEUKOCYTE ESTERASE,URINE NEGATIVE (NEGATIVE); NITRITE,URINE NEGATIVE (NEGATIVE); PROTEIN,URINE 30 mg/dL (NEGATIVE); URINE SPECIFIC GRAVITY 1.009; UROBILINOGEN,URINE NEGATIVE mg/dL (<2.0)
[2019-10-09] MEDS: DIPHENHYDRAMINE HCL 50 MG/ML VIAL IV PRN (22:17)
[2019-10-10 03:12] LABS: CREATINE KINASE MB 4.15 ng/mL (<4.55); TROPONIN I 0.051 ng/mL
[2019-10-10] MEDS: ISOSORBIDE DINITRATE 20 MG TABLET PO SCH ×3 (05:30→21:12)
[2019-10-10 06:22] LABS: ABSOLUTE BASOPHILS # (AUTO) 0.1 10^3/uL (0.0-0.2); ABSOLUTE EOSINOPHILS # (AUTO) 0.2 10^3/uL (0.0-0.6); ABSOLUTE LYMPHOCYTES (AUTO) 0.5 10^3/uL (0.5-4.7); ABSOLUTE MONOCYTES (AUTO) 0.4 10^3/uL (0.1-1.4); ABSOLUTE NEUT (AUTO) 4.2 10^3/uL (1.7-8.2); BASOPHILS % (AUTO) 1.1 % (0-2); EOSINOPHILS % (AUTO) 3.4 % (0-6); HEMATOCRIT 39.8 % (36.0-47.0); HEMOGLOBIN 12.8 g/dL (12.0-15.5); LYMPHOCYTES % (AUTO) 8.8 % (13-45); MEAN CORPUSCULAR HEMOGLOBIN 27.4 pg (27.0-33.4); MEAN CORPUSCULAR HGB CONC 32.3 g/dL (32.0-36.0); MEAN CORPUSCULAR VOLUME 85 fl (80-97); MONOCYTES % (AUTO) 7.1 % (3-13); PLATELET COUNT 205 10^3/uL (150-450); RED BLOOD COUNT 4.69 10^6/uL (3.72-5.28); RED CELL DISTRIBUTION WIDTH 19.5 % (11.5-14.0); SEGMENTED NEUTROPHILS % (AUTO) 79.6 % (42-78); TOTAL CELLS COUNTED % (AUTO) 100 %; WHITE BLOOD COUNT 5.2 10^3/uL (4.0-10.5)
[2019-10-10 06:35] LABS: INTERNATIONAL RATION (INR) 1.14; PROTHROMBIN TIME 14.7 SEC (11.4-15.4)
[2019-10-10 06:43] LABS: ALBUMIN 2.4 g/dL (3.5-5.0); ALKALINE PHOSPHATASE 124 U/L (38-126); ANION GAP 8 (5-19); ASPARTATE AMINO TRANSFERASE 20 U/L (14-36); BILIRUBIN,DIRECT 0.4 mg/dL (0.0-0.4); BILIRUBIN,TOTAL 0.9 mg/dL (0.2-1.3); BLOOD UREA NITROGEN 31 mg/dL (7-20); CARBON DIOXIDE 22 mmol/L (22-30); CHLORIDE 111 mmol/L (98-107); GLUCOSE 88 mg/dL (75-110); TOTAL PROTEIN 4.9 g/dL (6.3-8.2); TRIGLYCERIDES 98 mg/dL (<150)
[2019-10-10 06:54] LABS: DIRECT LDL 91 mg/dL (<100)
[2019-10-10 06:58] LABS: FREE T4 (FREE THYROXINE) 1.35 ng/dL (0.78-2.19)
[2019-10-10 07:12] LABS: THYROID STIMULATING HORMONE 3.46 uIU/mL (0.47-4.68)
[2019-10-10] MEDS: FERROUS SULFATE 325 MG TABLET PO SCH (09:22)
[2019-10-10] MEDS: AMLODIPINE BESYLATE 10 MG TABLET PO SCH (09:22)
[2019-10-10] MEDS: CALCITRIOL 0.25 MCG CAPSULE PO SCH (09:22)
[2019-10-10] MEDS: LUBIPROSTONE 24 MCG CAPSULE PO SCH ×2 (09:23→21:09)
[2019-10-10] MEDS: SACUBITRIL/VALSARTAN 97 MG/103 MG TABLET PO SCH ×2 (09:23→21:09)
[2019-10-10] MEDS: CHOLECALCIFEROL (D3) 400 UNIT TABLET PO SCH (09:23)
[2019-10-10] MEDS: POTASSIUM CHLORIDE 10 MEQ TABLET.ER PO SCH (09:23)
[2019-10-10] MEDS: ALLOPURINOL 100 MG TABLET PO SCH (09:23)
--- NOTE | 2019-10-10 14:51 | RADIOLOGY REPORT (SQ) ---
EXAM DESCRIPTION: CHEST SINGLE VIEW COMPLETED DATE/TIME: 10/10/2019 2:41 pm REASON FOR STUDY: S/P RT THORACENTESIS COMPARISON: 10/09/2019 EXAM PARAMETERS: NUMBER OF VIEWS: One view. TECHNIQUE: Single frontal radiographic view of the chest acquired. RADIATION DOSE: NA LIMITATIONS: None. FINDINGS: LUNGS AND PLEURA: Persistent bilateral pleural effusions. The right is slightly smaller i n size following thoracentesis. No pneumothorax. MEDIASTINUM AND HILAR STRUCTURES: No masses. Contour normal. HEART AND VASCULAR STRUCTURES: Unchanged. BONES: No acute findings. HARDWARE: Unchanged. OTHER: No other significant finding. IMPRESSION: No pneumothorax immediately following right-sided thoracentesis. TECHNICAL DOCUMENTATION: JOB ID: [id number] [employer]- All Rights Reserved Reading location - IP/workstation name: [email or web address]
--- NOTE | 2019-10-10 15:24 | RADIOLOGY REPORT (SQ) ---
EXAM DESCRIPTION: U/S THORACENTESIS WITH IMAGING COMPLETED DATE/TIME: 10/10/2019 2:54 pm REASON FOR STUDY: pleuraleffusion R> L COMPARISON: 09/09/2019 RADIATION DOSE: None. LIMITATIONS: None. PROCEDURE: Procedure, risks, benefit, and alternative explained to patient who then gave written con sent. The posterior right chest wall was marked using ultrasound guidance. A time-out was called fo r correct marking verification. Chest prepped and draped using sterile technique. Local anesthesia a chieved using 10 ml of 1% lidocaine injection. A 6fr Safe-T- Centesis set was introduced into the [facility] pleural space. Fluid was aspirated. The catheter was removed and the entry site was covered wit h sterile bandage. No immediate complications noted. Images acquired during the procedure were stored on PACS. FINDINGS: ENTRY SITE: posterior right chest. FLUID VOLUME: 1050 mL FLUID ANALYSIS: Clear, straw-colored OTHER: Fluid sent to the lab for testing. IMPRESSION: SUCCESSFUL THORACENTESIS USING ULTRASOUND GUIDANCE. COMMENT: Patient medication list reviewed: Yes- Quality ID# [id number]:Eligible professional attests to doc umenting in the medical record they obtained, updated, or reviewed the patient's current medications. TECHNICAL DOCUMENTATION: JOB ID: [id number] [email or web address]- All Rights Reserved Reading location - IP/workstation name: [email or web address]
[2019-10-10 16:44] LABS: FLUID TYPE PLEURAL
[2019-10-10 16:45] LABS: FLUID APPEARANCE CLEAR; FLUID COLOR YELLOW; FLUID SOURCE LUNG; FLUID VISCOSITY LIQUID
--- NOTE | 2019-10-10 17:11 | RADIOLOGY REPORT (SQ) ---
EXAM DESCRIPTION: CHEST SINGLE VIEW COMPLETED DATE/TIME: 10/10/2019 5:00 pm REASON FOR STUDY: S/P RT THORACENTESIS COMPARISON: Earlier the same day. EXAM PARAMETERS: NUMBER OF VIEWS: One view. TECHNIQUE: Single frontal radiographic view of the chest acquired. RADIATION DOSE: NA LIMITATIONS: None. FINDINGS: LUNGS AND PLEURA: No pneumothorax several hours following right-sided thoracentesis. Pers istent bilateral pleural effusions and basilar airspace disease. MEDIASTINUM AND HILAR STRUCTURES: No masses. Contour normal. HEART AND VASCULAR STRUCTURES: Stable in appearance. BONES: No acute findings. HARDWARE: Unchanged. OTHER: No other significant finding. IMPRESSION: No pneumothorax several hours following right-sided thoracentesis. TECHNICAL DOCUMENTATION: JOB ID: [id number] [employer] All Rights Reserved Reading location - IP/workstation name: [email or web address]
[2019-10-10] MEDS: NORMAL SALINE 250 ML with FUROSEMIDE 250 MG IV PRN ×2 (17:14)
[2019-10-10] MEDS: TRAMADOL HCL 50 MG TABLET PO PRN ×2 (17:35→23:51)
[2019-10-10] MEDS: DIPHENHYDRAMINE HCL 50 MG/ML VIAL IV PRN ×2 (17:36→23:55)
[2019-10-10] MEDS ORDERED: BENZOCAINE/MENTHOL SORE THROAT LOZENGE BUCCAL PRN (19:23)
--- NOTE | 2019-10-10 19:45 | PDOC PROGRESS REPORT ---
Subjective Progress Note for:: 10/10/19 Subjective:: Patient, seen by the bedside, she was admitted for the management of decompensated chronic systolic and diastolic heart failure she underwent thoracentesis today 1000 cc of transudative fluid was collected. Reason For Visit: ACUTE COMBINED SYSTOLIC AND DIASTOLIC HEART Physical Exam Vital Signs: Temp Pulse Resp BP Pulse Ox 97.8 F 87 18 122/86 H 99 10/10/19 15:13 10/10/19 15:13 10/10/19 15:13 10/10/19 15:13 10/10/19 15:13 Intake & Output 10/09/19 10/10/19 10/11/19 06:59 06:59 06:59 Intake Total 866 737 Output Total 450 2000 Balance 416 -1263 Weight 108.862 kg 111.5 kg 111.5 kg General appearance: PRESENT: no acute distress Eye exam: PRESENT: PERRLA Respiratory exam: PRESENT: clear to auscultation abdi Cardiovascular exam: PRESENT: +S1, +S2 GI/Abdominal exam: PRESENT: soft Neurological exam: PRESENT: alert Results Laboratory Results: 10/10/19 06:09 10/10/19 06:09 10/09/19 10/09/19 10/10/19 20:45 21:40 06:09 WBC 5.1 5.2 RBC 4.66 4.69 Hgb 12.8 12.8 Hct 39.6 39.8 MCV 85 85 MCH 27.5 27.4 MCHC 32.3 32.3 RDW 19.5 H 19.5 H Plt Count 218 205 Seg Neutrophils % 79.6 H Sodium Potassium Chloride Carbon Dioxide Anion Gap BUN Creatinine Est GFR ( Amer) Glucose Calcium Total Bilirubin AST Alkaline Phosphatase Total Protein Albumin Triglycerides Cholesterol LDL Cholesterol Direct VLDL Cholesterol HDL Cholesterol TSH Free T4 Urine Color YELLOW Urine Appearance CLEAR Urine pH 5.0 Ur Specific [place] 1.009 Urine Protein 30 H Urine Glucose (UA) NEGATIVE Urine Ketones NEGATIVE Urine Blood SMALL H Urine Nitrite NEGATIVE Ur Leukocyte Esterase NEGATIVE Urine WBC (Auto) 0 Urine RBC (Auto) 3 Fluid Type Fluid Source Fluid Color Fluid Appearance Fluid Viscosity Fluid WBC Fluid RBC 10/10/19 10/10/19 10/10/19 06:09 06:09 14:15 WBC RBC Hgb Hct MCV MCH MCHC RDW Plt Count Seg Neutrophils % Sodium 141.1 Potassium 3.0 L* Chloride 111 H Carbon Dioxide 22 Anion Gap 8 BUN 31 H Creatinine 1.70 H Est GFR ( Amer) 40 L Glucose 88 Calcium 8.0 L Total Bilirubin 0.9 AST 20 Alkaline Phosphatase 124 Total Protein 4.9 L Albumin 2.4 L Triglycerides 98 Cholesterol 141.60 LDL Cholesterol Direct 91 VLDL Cholesterol 20.0 HDL Cholesterol 31 L TSH 3.46 Free T4 1.35 Urine Color Urine Appearance Urine pH Ur Specific [place] Urine Protein Urine Glucose (UA) Urine Ketones Urine Blood Urine Nitrite Ur Leukocyte Esterase Urine WBC (Auto) Urine RBC (Auto) Fluid Type PLEURAL Fluid Source LUNG Fluid Color YELLOW Fluid Appearance CLEAR Fluid Viscosity LIQUID Fluid WBC 22 Fluid RBC 12 10/09/19 10/09/19 10/09/19 06:15 14:06 14:06 Creatine Kinase 257 H CK-MB (CK-2) 4.05 Troponin I 0.047 0.067 NT-Pro-B Natriuret Pep 14405 H 10/09/19 10/09/19 10/10/19 20:45 20:45 02:29 Creatine Kinase 206 H 201 H CK-MB (CK-2) 4.95 H Troponin I 0.054 NT-Pro-B Natriuret Pep 10/10/19 02:29 Creatine Kinase CK-MB (CK-2) 4.15 Troponin I 0.051 NT-Pro-B Natriuret Pep Impressions: Thoracentesis Ultrasound 10/10/19 00:00 IMPRESSION: SUCCESSFUL THORACENTESIS USING ULTRASOUND GUIDANCE. Chest X-Ray 10/10/19 16:30 IMPRESSION: No pneumothorax several hours following right-sided thoracentesis. Assessment & Plan - Diagnosis (1) Acute combined systolic (congestive) and diastolic (congestive) heart failure Is this a current diagnosis for this admission?: Yes Plan: Continue furosemide infusion for few more days, add evidence-based beta-bear Coreg, she was supposed to be on evidence-based beta-bear but on careful review of medication, it was not listed on medication reconciliation. (2) CKD (chronic kidney disease) stage 3, GFR 30-59 ml/min Is this a current diagnosis for this admission?: Yes (3) ICD (implantable cardioverter-defibrillator) in place Is this a current diagnosis for this admission?: Yes - Time Time Spent with patient: 25-34 minutes Level of Care: [facility]
[2019-10-10] MEDS: CARVEDILOL 12.5 MG TABLET PO SCH (21:11)
[2019-10-10] MEDS: ATORVASTATIN CALCIUM 80 MG TABLET PO SCH (21:12)
[2019-10-10] MEDS: WARFARIN SODIUM 3 MG TABLET PO SCH (21:13)
[2019-10-10] MEDS: ZOLPIDEM TARTRATE 5 MG TABLET PO SCH (23:49)
[2019-10-11 04:58] LABS: ABSOLUTE EOSINOPHILS # (AUTO) 0.1 10^3/uL (0.0-0.6); ABSOLUTE LYMPHOCYTES (AUTO) 0.4 10^3/uL (0.5-4.7); ABSOLUTE MONOCYTES (AUTO) 0.3 10^3/uL (0.1-1.4); ABSOLUTE NEUT (AUTO) 3.2 10^3/uL (1.7-8.2); BASOPHILS % (AUTO) 0.7 % (0-2); EOSINOPHILS % (AUTO) 3.1 % (0-6); HEMATOCRIT 34.3 % (36.0-47.0); LYMPHOCYTES % (AUTO) 9.8 % (13-45); MEAN CORPUSCULAR HEMOGLOBIN 27.1 pg (27.0-33.4); MEAN CORPUSCULAR HGB CONC 32.1 g/dL (32.0-36.0); MEAN CORPUSCULAR VOLUME 84 fl (80-97); MONOCYTES % (AUTO) 7.6 % (3-13); PLATELET COUNT 190 10^3/uL (150-450); RED BLOOD COUNT 4.08 10^6/uL (3.72-5.28); RED CELL DISTRIBUTION WIDTH 19.9 % (11.5-14.0); SEGMENTED NEUTROPHILS % (AUTO) 78.8 % (42-78); TOTAL CELLS COUNTED % (AUTO) 100 %; WHITE BLOOD COUNT 4.1 10^3/uL (4.0-10.5)
[2019-10-11 05:05] LABS: INTERNATIONAL RATION (INR) 1.35; PROTHROMBIN TIME 16.8 SEC (11.4-15.4)
[2019-10-11] MEDS: ISOSORBIDE DINITRATE 20 MG TABLET PO SCH ×3 (05:18→23:32)
[2019-10-11] MEDS: SACUBITRIL/VALSARTAN 97 MG/103 MG TABLET PO SCH ×2 (09:56→23:31)
[2019-10-11] MEDS: POTASSIUM CHLORIDE 10 MEQ TABLET.ER PO SCH (09:56)
[2019-10-11] MEDS: CARVEDILOL 12.5 MG TABLET PO SCH ×2 (09:57→23:31)
[2019-10-11] MEDS: AMLODIPINE BESYLATE 10 MG TABLET PO SCH (09:57)
[2019-10-11] MEDS: CALCITRIOL 0.25 MCG CAPSULE PO SCH (09:57)
[2019-10-11] MEDS: LUBIPROSTONE 24 MCG CAPSULE PO SCH ×2 (09:57→23:31)
[2019-10-11] MEDS: ALLOPURINOL 100 MG TABLET PO SCH (09:57)
[2019-10-11] MEDS: FERROUS SULFATE 325 MG TABLET PO SCH (09:57)
[2019-10-11] MEDS: CHOLECALCIFEROL (D3) 400 UNIT TABLET PO SCH (09:57)
[2019-10-11] MEDS: NORMAL SALINE 250 ML with FUROSEMIDE 250 MG IV PRN ×2 (15:21)
[2019-10-11 20:40] LABS: ANION GAP 7 (5-19); BLOOD UREA NITROGEN 31 mg/dL (7-20); CALCIUM 7.6 mg/dL (8.4-10.2); CARBON DIOXIDE 22 mmol/L (22-30); CHLORIDE 109 mmol/L (98-107); GLUCOSE 104 mg/dL (75-110); POTASSIUM 3.5 mmol/L (3.6-5.0)
--- NOTE | 2019-10-11 21:21 | PDOC PROGRESS REPORT ---
Subjective Progress Note for:: 10/11/19 Subjective:: Patient seen by the bedside, she continues to diurese Reason For Visit: ACUTE COMBINED SYSTOLIC AND DIASTOLIC HEART Physical Exam Vital Signs: Temp Pulse Resp BP Pulse Ox 97.1 F 80 17 114/74 100 10/11/19 15:29 10/11/19 15:29 10/11/19 15:29 10/11/19 15:29 10/11/19 15:29 Intake & Output 10/10/19 10/11/19 10/12/19 06:59 06:59 06:59 Intake Total 866 959 582 Output Total 450 2000 Balance 416 1041 582 Weight 111.5 kg 110.3 kg General appearance: PRESENT: no acute distress Eye exam: PRESENT: PERRLA Respiratory exam: PRESENT: clear to auscultation abdi Cardiovascular exam: PRESENT: +S1, +S2 GI/Abdominal exam: PRESENT: soft Neurological exam: PRESENT: alert Results Laboratory Results: 10/11/19 04:42 10/11/19 04:42 10/11/19 10/11/19 04:42 04:42 WBC 4.1 RBC 4.08 Hgb 11.0 L Hct 34.3 L MCV 84 MCH 27.1 MCHC 32.1 RDW 19.9 H Plt Count 190 Seg Neutrophils % 78.8 H Sodium 138.3 Potassium 3.5 L Chloride 109 H Carbon Dioxide 22 Anion Gap 7 BUN 31 H Creatinine 1.73 H Est GFR ( Amer) 39 L Glucose 104 Calcium 7.6 L 10/09/19 10/09/19 10/09/19 06:15 14:06 14:06 Creatine Kinase 257 H CK-MB (CK-2) 4.05 Troponin I 0.047 0.067 NT-Pro-B Natriuret Pep 73981 H 10/09/19 10/09/19 10/10/19 20:45 20:45 02:29 Creatine Kinase 206 H 201 H CK-MB (CK-2) 4.95 H Troponin I 0.054 NT-Pro-B Natriuret Pep 10/10/19 02:29 Creatine Kinase CK-MB (CK-2) 4.15 Troponin I 0.051 NT-Pro-B Natriuret Pep Impressions: Thoracentesis Ultrasound 10/10/19 00:00 IMPRESSION: SUCCESSFUL THORACENTESIS USING ULTRASOUND GUIDANCE. Chest X-Ray 10/10/19 16:30 IMPRESSION: No pneumothorax several hours following right-sided thoracentesis. Assessment & Plan - Diagnosis (1) Acute combined systolic (congestive) and diastolic (congestive) heart failure Is this a current diagnosis for this admission?: Yes Plan: Continue treatment (2) CKD (chronic kidney disease) stage 3, GFR 30-59 ml/min Is this a current diagnosis for this admission?: Yes (3) ICD (implantable cardioverter-defibrillator) in place Is this a current diagnosis for this admission?: Yes - Time Time Spent with patient: 25-34 minutes
[2019-10-11] MEDS: WARFARIN SODIUM 3 MG TABLET PO SCH (23:30)
[2019-10-11] MEDS: DIPHENHYDRAMINE HCL 50 MG/ML VIAL IV PRN (23:30)
[2019-10-11] MEDS: TRAMADOL HCL 50 MG TABLET PO PRN (23:30)
[2019-10-11] MEDS: ATORVASTATIN CALCIUM 80 MG TABLET PO SCH (23:32)
[2019-10-11] MEDS: ZOLPIDEM TARTRATE 5 MG TABLET PO SCH (23:32)
[2019-10-12] MEDS ORDERED: FUROSEMIDE 80 MG TABLET PO ONE (02:30)
[2019-10-12 05:53] LABS: INTERNATIONAL RATION (INR) 1.44; PROTHROMBIN TIME 17.7 SEC (11.4-15.4)
[2019-10-12] MEDS: ISOSORBIDE DINITRATE 20 MG TABLET PO SCH ×3 (05:55→22:52)
[2019-10-12 06:06] LABS: ANION GAP 10 (5-19); BLOOD UREA NITROGEN 32 mg/dL (7-20); CALCIUM 7.7 mg/dL (8.4-10.2); CARBON DIOXIDE 22 mmol/L (22-30); CHLORIDE 107 mmol/L (98-107); GLUCOSE 99 mg/dL (75-110); POTASSIUM 3.9 mmol/L (3.6-5.0)
[2019-10-12] MEDS: LUBIPROSTONE 24 MCG CAPSULE PO SCH ×2 (09:50→22:51)
[2019-10-12] MEDS: SACUBITRIL/VALSARTAN 97 MG/103 MG TABLET PO SCH ×2 (09:50→22:51)
[2019-10-12] MEDS: FUROSEMIDE 80 MG TABLET PO SCH ×2 (09:50→17:26)
[2019-10-12] MEDS: FERROUS SULFATE 325 MG TABLET PO SCH (09:50)
[2019-10-12] MEDS: CALCITRIOL 0.25 MCG CAPSULE PO SCH (09:51)
[2019-10-12] MEDS: CHOLECALCIFEROL (D3) 400 UNIT TABLET PO SCH (09:51)
[2019-10-12] MEDS: ALLOPURINOL 100 MG TABLET PO SCH (09:51)
[2019-10-12] MEDS: POTASSIUM CHLORIDE 10 MEQ TABLET.ER PO SCH (09:51)
[2019-10-12] MEDS: AMLODIPINE BESYLATE 10 MG TABLET PO SCH (10:00)
[2019-10-12] MEDS: CARVEDILOL 12.5 MG TABLET PO SCH ×2 (10:00→22:52)
[2019-10-12 15:19] LABS: HEMATOCRIT 36.4 % (36.0-47.0); HEMOGLOBIN 11.7 g/dL (12.0-15.5); MEAN CORPUSCULAR HEMOGLOBIN 27.3 pg (27.0-33.4); MEAN CORPUSCULAR HGB CONC 32.2 g/dL (32.0-36.0); MEAN CORPUSCULAR VOLUME 85 fl (80-97); PLATELET COUNT 217 10^3/uL (150-450); RED CELL DISTRIBUTION WIDTH 19.8 % (11.5-14.0); WHITE BLOOD COUNT 4.4 10^3/uL (4.0-10.5)
[2019-10-12] MEDS ORDERED: DIPHENHYDRAMINE HCL 50 MG CAPSULE PO PRN (15:40)
--- NOTE | 2019-10-12 18:18 | PDOC PROGRESS REPORT ---
Subjective Progress Note for:: 10/12/19 Subjective:: Patient seen by the bedside, IV access is a challenge for this patient, She was admitted for the management of decompensated chronic systolic heart failure Reason For Visit: ACUTE COMBINED SYSTOLIC AND DIASTOLIC HEART Physical Exam Vital Signs: Temp Pulse Resp BP Pulse Ox 97.9 F 72 18 109/73 100 10/12/19 15:09 10/12/19 15:09 10/12/19 15:09 10/12/19 15:09 10/12/19 15:09 Intake & Output 10/11/19 10/12/19 10/13/19 06:59 06:59 06:59 Intake Total 959 1159 120 Output Total 2000 600 600 Balance -1041 559 -480 Weight 110.3 kg 110.9 kg General appearance: PRESENT: no acute distress Eye exam: PRESENT: PERRLA Respiratory exam: PRESENT: clear to auscultation abdi Cardiovascular exam: PRESENT: +S1, +S2, systolic murmur GI/Abdominal exam: PRESENT: soft Results Laboratory Results: 10/12/19 15:02 10/12/19 04:30 10/10/19 10/10/19 10/10/19 14:15 14:15 14:15 WBC RBC Hgb Hct MCV MCH MCHC RDW Plt Count Sodium Potassium Chloride Carbon Dioxide Anion Gap BUN Creatinine Est GFR ( Amer) Glucose Calcium Fluid Glucose 116 Fluid Total Protein Fluid LDH 46 Fluid Amylase 9 10/10/19 10/11/19 10/12/19 14:15 04:42 04:30 WBC RBC Hgb Hct MCV MCH MCHC RDW Plt Count Sodium 138.3 138.9 Potassium 3.5 L 3.9 Chloride 109 H 107 Carbon Dioxide 22 22 Anion Gap 7 10 BUN 31 H 32 H Creatinine 1.73 H 1.91 H Est GFR ( Amer) 39 L 35 L Glucose 104 99 Calcium 7.6 L 7.7 L Fluid Glucose Fluid Total Protein 0.9 Fluid LDH Fluid Amylase 10/12/19 15:02 WBC 4.4 RBC 4.30 Hgb 11.7 L Hct 36.4 MCV 85 MCH 27.3 MCHC 32.2 RDW 19.8 H Plt Count 217 Sodium Potassium Chloride Carbon Dioxide Anion Gap BUN Creatinine Est GFR ( Amer) Glucose Calcium Fluid Glucose Fluid Total Protein Fluid LDH Fluid Amylase 10/09/19 21:40 Clean Catch Midstream Urine Culture - Final Mixed Urogenital Anna 10/09/19 10/09/19 10/09/19 06:15 14:06 14:06 Creatine Kinase 257 H CK-MB (CK-2) 4.05 Troponin I 0.047 0.067 NT-Pro-B Natriuret Pep 28565 H 10/09/19 10/09/19 10/10/19 20:45 20:45 02:29 Creatine Kinase 206 H 201 H CK-MB (CK-2) 4.95 H Troponin I 0.054 NT-Pro-B Natriuret Pep 10/10/19 02:29 Creatine Kinase CK-MB (CK-2) 4.15 Troponin I 0.051 NT-Pro-B Natriuret Pep Impressions: Thoracentesis Ultrasound 10/10/19 00:00 IMPRESSION: SUCCESSFUL THORACENTESIS USING ULTRASOUND GUIDANCE. Chest X-Ray 10/10/19 16:30 IMPRESSION: No pneumothorax several hours following right-sided thoracentesis. Assessment & Plan - Diagnosis (1) Acute combined systolic (congestive) and diastolic (congestive) heart failure Is this a current diagnosis for this admission?: Yes Plan: Continue present treatment (2) Cardiomyopathy Qualifiers: Cardiomyopathy type: unspecified Qualified Code(s): I42.9 - Cardiomyopathy, unspecified Is this a current diagnosis for this admission?: Yes (3) CKD (chronic kidney disease) stage 3, GFR 30-59 ml/min Is this a current diagnosis for this admission?: Yes (4) ICD (implantable cardioverter-defibrillator) in place Is this a current diagnosis for this admission?: Yes - Time Time Spent with patient: 25-34 minutes
[2019-10-12] MEDS: ATORVASTATIN CALCIUM 80 MG TABLET PO SCH (22:51)
[2019-10-12] MEDS: TRAMADOL HCL 50 MG TABLET PO PRN (22:52)
[2019-10-12 22:53] LABS: APPEARANCE,URINE CLEAR; BILIRUBIN,URINE NEGATIVE (NEGATIVE); COLOR,URINE YELLOW; GLUCOSE, URINE NEGATIVE (NEGATIVE); KETONES,URINE NEGATIVE (NEGATIVE); LEUKOCYTE ESTERASE,URINE TRACE (NEGATIVE); NITRITE,URINE NEGATIVE (NEGATIVE); PROTEIN,URINE 30 mg/dL (NEGATIVE)
[2019-10-12] MEDS: ZOLPIDEM TARTRATE 5 MG TABLET PO SCH (22:53)
[2019-10-12] MEDS: WARFARIN SODIUM 3 MG TABLET PO SCH (22:54)
[2019-10-12] MEDS: DIPHENHYDRAMINE HCL 50 MG/ML VIAL IV PRN (23:03)
[2019-10-13] MEDS: FUROSEMIDE 80 MG TABLET PO SCH ×3 (01:52→17:16)
[2019-10-13] MEDS: ISOSORBIDE DINITRATE 20 MG TABLET PO SCH ×3 (05:09→22:23)
[2019-10-13 05:26] LABS: INTERNATIONAL RATION (INR) 1.74; PROTHROMBIN TIME 20.6 SEC (11.4-15.4)
[2019-10-13 06:03] LABS: ANION GAP 9 (5-19); BLOOD UREA NITROGEN 30 mg/dL (7-20); CALCIUM 7.5 mg/dL (8.4-10.2); CARBON DIOXIDE 22 mmol/L (22-30); CHLORIDE 107 mmol/L (98-107); GLUCOSE 90 mg/dL (75-110); POTASSIUM 3.7 mmol/L (3.6-5.0)
[2019-10-13] MEDS: CARVEDILOL 12.5 MG TABLET PO SCH ×2 (09:34→22:21)
[2019-10-13] MEDS: LUBIPROSTONE 24 MCG CAPSULE PO SCH ×2 (09:35→22:22)
[2019-10-13] MEDS: SACUBITRIL/VALSARTAN 97 MG/103 MG TABLET PO SCH ×2 (09:35→22:22)
[2019-10-13] MEDS: CHOLECALCIFEROL (D3) 400 UNIT TABLET PO SCH (09:35)
[2019-10-13] MEDS: CALCITRIOL 0.25 MCG CAPSULE PO SCH (09:35)
[2019-10-13] MEDS: FERROUS SULFATE 325 MG TABLET PO SCH (09:35)
[2019-10-13] MEDS: ALLOPURINOL 100 MG TABLET PO SCH (09:35)
[2019-10-13] MEDS: AMLODIPINE BESYLATE 10 MG TABLET PO SCH (09:36)
[2019-10-13] MEDS: POTASSIUM CHLORIDE 10 MEQ TABLET.ER PO SCH (09:36)
--- NOTE | 2019-10-13 20:30 | PDOC PROGRESS REPORT ---
Subjective Progress Note for:: 10/13/19 Subjective:: Patient seen by the bedside,she continues to improve slowly Reason For Visit: ACUTE COMBINED SYSTOLIC AND DIASTOLIC HEART Physical Exam Vital Signs: Temp Pulse Resp BP Pulse Ox 97.9 F 77 17 107/72 100 10/13/19 15:31 10/13/19 19:00 10/13/19 15:31 10/13/19 17:19 10/13/19 17:19 Intake & Output 10/12/19 10/13/19 10/14/19 06:59 06:59 06:59 Intake Total 1159 882 960 Output Total 600 600 500 Balance 559 282 460 Weight 110.9 kg 111.9 kg General appearance: PRESENT: no acute distress Respiratory exam: PRESENT: rales, rhonchi Cardiovascular exam: PRESENT: +S1, +S2 GI/Abdominal exam: PRESENT: soft Neurological exam: PRESENT: alert Results Laboratory Results: 10/12/19 15:02 10/13/19 04:58 10/12/19 10/13/19 22:08 04:58 Sodium 137.8 Potassium 3.7 Chloride 107 Carbon Dioxide 22 Anion Gap 9 BUN 30 H Creatinine 2.16 H Est GFR ( Amer) 30 L Glucose 90 Calcium 7.5 L Urine Color YELLOW Urine Appearance CLEAR Urine pH 6.0 Ur Specific [place] 1.010 Urine Protein 30 H Urine Glucose (UA) NEGATIVE Urine Ketones NEGATIVE Urine Blood LARGE H Urine Nitrite NEGATIVE Ur Leukocyte Esterase TRACE H Urine RBC (Auto) >182 10/10/19 14:15 Pleural Fluid - Not Specified Fungal Smear - Final 10/10/19 14:15 Pleural Fluid - Not Specified Fungal Smear - Final 10/09/19 10/09/19 10/09/19 06:15 14:06 14:06 Creatine Kinase 257 H CK-MB (CK-2) 4.05 Troponin I 0.047 0.067 NT-Pro-B Natriuret Pep 22955 H 10/09/19 10/09/19 10/10/19 20:45 20:45 02:29 Creatine Kinase 206 H 201 H CK-MB (CK-2) 4.95 H Troponin I 0.054 NT-Pro-B Natriuret Pep 10/10/19 02:29 Creatine Kinase CK-MB (CK-2) 4.15 Troponin I 0.051 NT-Pro-B Natriuret Pep Impressions: Thoracentesis Ultrasound 10/10/19 00:00 IMPRESSION: SUCCESSFUL THORACENTESIS USING ULTRASOUND GUIDANCE. Chest X-Ray 10/10/19 16:30 IMPRESSION: No pneumothorax several hours following right-sided thoracentesis. Assessment & Plan - Diagnosis (1) Acute combined systolic (congestive) and diastolic (congestive) heart tyrell lure Is this a current diagnosis for this admission?: Yes (2) Cardiomyopathy Qualifiers: Cardiomyopathy type: unspecified Qualified Code(s): I42.9 - Cardiomyopathy, unspecified Is this a current diagnosis for this admission?: Yes (3) CKD (chronic kidney disease) stage 3, GFR 30-59 ml/min Is this a current diagnosis for this admission?: Yes (4) ICD (implantable cardioverter-defibrillator) in place Is this a current diagnosis for this admission?: Yes (5) Bilateral lower extremity edema Is this a current diagnosis for this admission?: Yes - Time Time Spent with patient: 15-24 minutes
[2019-10-13] MEDS: WARFARIN SODIUM 3 MG TABLET PO SCH (22:22)
[2019-10-13] MEDS: DIPHENHYDRAMINE HCL 50 MG/ML VIAL IV PRN (22:22)
[2019-10-13] MEDS: TRAMADOL HCL 50 MG TABLET PO PRN (22:23)
[2019-10-13] MEDS: ATORVASTATIN CALCIUM 80 MG TABLET PO SCH (22:23)
[2019-10-13] MEDS: ZOLPIDEM TARTRATE 5 MG TABLET PO SCH (22:24)
[2019-10-14] MEDS: FUROSEMIDE 80 MG TABLET PO SCH ×3 (02:58→17:32)
[2019-10-14 06:27] LABS: INTERNATIONAL RATION (INR) 1.98; PROTHROMBIN TIME 22.8 SEC (11.4-15.4)
[2019-10-14] MEDS: TRAMADOL HCL 50 MG TABLET PO PRN ×2 (06:30→22:54)
[2019-10-14] MEDS: ISOSORBIDE DINITRATE 20 MG TABLET PO SCH ×3 (06:30→22:54)
[2019-10-14] MEDS: DIPHENHYDRAMINE HCL 50 MG/ML VIAL IV PRN ×2 (06:30→22:55)
[2019-10-14] MEDS: CARVEDILOL 12.5 MG TABLET PO SCH ×2 (10:18→22:52)
[2019-10-14] MEDS: LUBIPROSTONE 24 MCG CAPSULE PO SCH ×2 (10:18→22:50)
[2019-10-14] MEDS: FERROUS SULFATE 325 MG TABLET PO SCH (10:19)
[2019-10-14] MEDS: SACUBITRIL/VALSARTAN 97 MG/103 MG TABLET PO SCH ×2 (10:19→22:53)
[2019-10-14] MEDS: POTASSIUM CHLORIDE 10 MEQ TABLET.ER PO SCH (10:20)
[2019-10-14] MEDS: ALLOPURINOL 100 MG TABLET PO SCH (10:21)
[2019-10-14] MEDS: CHOLECALCIFEROL (D3) 400 UNIT TABLET PO SCH (10:21)
[2019-10-14] MEDS: AMLODIPINE BESYLATE 10 MG TABLET PO SCH (10:21)
[2019-10-14] MEDS: CALCITRIOL 0.25 MCG CAPSULE PO SCH (10:21)
--- NOTE | 2019-10-14 19:43 | PDOC PROGRESS REPORT ---
Subjective Progress Note for:: 10/14/19 Subjective:: Patient is seen by the bedside, she started that she is very tired, she has no energy, the last time she was admitted I suggested that she goes to a facility for physical therapy and rehabilitation but she decided against that option she prefers to be discharged home with physical therapy only for her to return back to the hospital worse off then when she was discharged. Reason For Visit: ACUTE COMBINED SYSTOLIC AND DIASTOLIC HEART Physical Exam Vital Signs: Temp Pulse Resp BP Pulse Ox 98.1 F 70 18 97/58 L 98 10/14/19 15:25 10/14/19 15:25 10/14/19 15:25 10/14/19 15:25 10/14/19 15:25 Intake & Output 10/13/19 10/14/19 10/15/19 06:59 06:59 06:59 Intake Total 882 1632 840 Output Total 600 1200 0 Balance 282 432 840 Weight 111.9 kg 115.9 kg General appearance: PRESENT: no acute distress Eye exam: PRESENT: PERRLA Respiratory exam: PRESENT: clear to auscultation abdi Cardiovascular exam: PRESENT: +S1, +S2 GI/Abdominal exam: PRESENT: soft Neurological exam: PRESENT: alert, CN II-XII grossly intact Results Laboratory Results: 10/12/19 15:02 10/13/19 04:58 10/10/19 14:15 Pleural Fluid - Not Specified Gram Stain - Final 10/10/19 14:15 Pleural Fluid - Not Specified Body Fluid Culture - Final NO AEROBIC OR ANAEROBIC ORGANISMS RECOVERED 10/09/19 10/09/19 10/09/19 06:15 14:06 14:06 Creatine Kinase 257 H CK-MB (CK-2) 4.05 Troponin I 0.047 0.067 NT-Pro-B Natriuret Pep 32346 H 10/09/19 10/09/19 10/10/19 20:45 20:45 02:29 Creatine Kinase 206 H 201 H CK-MB (CK-2) 4.95 H Troponin I 0.054 NT-Pro-B Natriuret Pep 10/10/19 02:29 Creatine Kinase CK-MB (CK-2) 4.15 Troponin I 0.051 NT-Pro-B Natriuret Pep Impressions: Thoracentesis Ultrasound 10/10/19 00:00 IMPRESSION: SUCCESSFUL THORACENTESIS USING ULTRASOUND GUIDANCE. Chest X-Ray 10/10/19 16:30 IMPRESSION: No pneumothorax several hours following right-sided thoracentesis. Assessment & Plan - Diagnosis (1) Acute combined systolic (congestive) and diastolic (congestive) heart failure Is this a current diagnosis for this admission?: Yes (2) Cardiomyopathy Qualifiers: Cardiomyopathy type: unspecified Qualified Code(s): I42.9 - Cardiomyopathy, unspecified Is this a current diagnosis for this admission?: Yes (3) CKD (chronic kidney disease) stage 3, GFR 30-59 ml/min Is this a current diagnosis for this admission?: Yes (4) ICD (implantable cardioverter-defibrillator) in place Is this a current diagnosis for this admission?: Yes (5) Bilateral lower extremity edema Is this a current diagnosis for this admission?: Yes - Time Time Spent with patient: 25-34 minutes
[2019-10-14] MEDS: ZOLPIDEM TARTRATE 5 MG TABLET PO SCH (22:50)
[2019-10-14] MEDS: WARFARIN SODIUM 3 MG TABLET PO SCH (22:52)
[2019-10-14] MEDS: ATORVASTATIN CALCIUM 80 MG TABLET PO SCH (22:54)
[2019-10-15] MEDS: FUROSEMIDE 80 MG TABLET PO SCH ×4 (02:34→21:58)
[2019-10-15 05:02] LABS: INTERNATIONAL RATION (INR) 2.32; PROTHROMBIN TIME 25.8 SEC (11.4-15.4)
[2019-10-15] MEDS: ISOSORBIDE DINITRATE 20 MG TABLET PO SCH ×3 (05:26→21:57)
[2019-10-15] MEDS: FERROUS SULFATE 325 MG TABLET PO SCH (09:39)
[2019-10-15] MEDS: CALCITRIOL 0.25 MCG CAPSULE PO SCH (09:40)
[2019-10-15] MEDS: LUBIPROSTONE 24 MCG CAPSULE PO SCH ×2 (09:40→21:57)
[2019-10-15] MEDS: ALLOPURINOL 100 MG TABLET PO SCH (09:40)
[2019-10-15] MEDS: SACUBITRIL/VALSARTAN 97 MG/103 MG TABLET PO SCH ×2 (09:40→21:58)
[2019-10-15] MEDS: AMLODIPINE BESYLATE 10 MG TABLET PO SCH (09:40)
[2019-10-15] MEDS: CARVEDILOL 12.5 MG TABLET PO SCH ×2 (09:40→21:57)
[2019-10-15] MEDS: CHOLECALCIFEROL (D3) 400 UNIT TABLET PO SCH (09:40)
[2019-10-15] MEDS: POTASSIUM CHLORIDE 10 MEQ TABLET.ER PO SCH (09:40)
[2019-10-15 15:27] LABS: HEMATOCRIT 38.1 % (36.0-47.0); HEMOGLOBIN 12.3 g/dL (12.0-15.5); MEAN CORPUSCULAR HEMOGLOBIN 27.3 pg (27.0-33.4); MEAN CORPUSCULAR HGB CONC 32.4 g/dL (32.0-36.0); MEAN CORPUSCULAR VOLUME 84 fl (80-97); PLATELET COUNT 246 10^3/uL (150-450); RED BLOOD COUNT 4.52 10^6/uL (3.72-5.28); RED CELL DISTRIBUTION WIDTH 19.6 % (11.5-14.0); WHITE BLOOD COUNT 5.3 10^3/uL (4.0-10.5)
--- NOTE | 2019-10-15 21:11 | PDOC PROGRESS REPORT ---
Subjective Progress Note for:: 10/15/19 Subjective:: Patient denied any chest pain or difficulty with breathing. Leg swelling improving. Unusually cold tonight. No fever. Appetite and po intake is improving. No nausea or vomiting. No abdominal pain. Reason For Visit: ACUTE COMBINED SYSTOLIC AND DIASTOLIC HEART Physical Exam Vital Signs: Temp Pulse Resp BP Pulse Ox 97.6 F 85 18 124/79 92 10/15/19 16:00 10/15/19 16:00 10/15/19 16:00 10/15/19 16:00 10/15/19 16:00 Intake & Output 10/14/19 10/15/19 10/16/19 06:59 06:59 06:59 Intake Total 1632 1462 270 Output Total 1200 1300 Balance 432 162 270 Weight 115.9 kg 116.6 kg General appearance: PRESENT: no acute distress, obese Eye exam: PRESENT: conjunctiva pink. ABSENT: scleral icterus Ear exam: PRESENT: normal external ear exam Mouth exam: PRESENT: moist Respiratory exam: PRESENT: clear to auscultation abdi, decreased breath sounds - at lumng bases Cardiovascular exam: PRESENT: RRR, +S1, +S2, systolic murmur. ABSENT: diastolic murmur, rubs Vascular exam: ABSENT: pallor GI/Abdominal exam: PRESENT: normal bowel sounds, soft. ABSENT: distended, guarding, mass, organolmegaly, rebound, tenderness Extremities exam: PRESENT: pedal edema Neurological exam: PRESENT: alert, awake, oriented to person, oriented to place, oriented to time, oriented to situation, CN II-XII grossly intact. ABSENT: motor sensory deficit Psychiatric exam: PRESENT: appropriate affect, normal mood. ABSENT: homicidal ideation, suicidal ideation Skin exam: PRESENT: dry, warm Results Laboratory Results: 10/15/19 14:55 10/13/19 04:58 10/15/19 14:55 WBC 5.3 RBC 4.52 Hgb 12.3 Hct 38.1 MCV 84 MCH 27.3 MCHC 32.4 RDW 19.6 H Plt Count 246 10/09/19 10/09/19 10/09/19 06:15 14:06 14:06 Creatine Kinase 257 H CK-MB (CK-2) 4.05 Troponin I 0.047 0.067 NT-Pro-B Natriuret Pep [id number] H 10/09/19 10/09/19 10/10/19 20:45 20:45 02:29 Creatine Kinase 206 H 201 H CK-MB (CK-2) 4.95 H Troponin I 0.054 NT-Pro-B Natriuret Pep 10/10/19 02:29 Creatine Kinase CK-MB (CK-2) 4.15 Troponin I 0.051 NT-Pro-B Natriuret Pep Impressions: Thoracentesis Ultrasound 10/10/19 00:00 IMPRESSION: SUCCESSFUL THORACENTESIS USING ULTRASOUND GUIDANCE. Chest X-Ray 10/10/19 16:30 IMPRESSION: No pneumothorax several hours following right-sided thoracentesis. Assessment & Plan - Diagnosis (1) Acute on chronic combined systolic and diastolic CHF, NYHA class 3 Is this a current diagnosis for this admission?: Yes Plan: Continue current medication management. Encouraged dietary and fluid restriction compliance. (2) Cardiomyopathy Qualifiers: Cardiomyopathy type: unspecified Qualified Code(s): I42.9 - Cardiomyopathy, unspecified Is this a current diagnosis for this admission?: Yes Plan: Continue current medication management and anticoagulation therapy. (3) Hypertension Qualifiers: Hypertension type: essential hypertension Qualified Code(s): I10 - Essential (primary) hypertension Is this a current diagnosis for this admission?: Yes Plan: Maintain on current medication management. (4) Type 2 diabetes mellitus Qualifiers: Diabetes mellitus long term care administrator insulin use: unspecified nursing home insulin use status Diabetes mellitus complication status: without complication Qualified Code(s): E11.9 - Type 2 diabetes mellitus without complications Is this a current diagnosis for this admission?: Yes Plan: Continue current medication management. Encouraged dietary restriction compliance. (5) CKD (chronic kidney disease) stage 3, GFR 30-59 ml/min Is this a current diagnosis for this admission?: Yes Plan: Continue current medication management. Encouraged fluid restriction compliance. - Time Time Spent with patient: 25-34 minutes Level of Care: IMCU Medications reviewed and adjusted accordingly: Yes Anticipated discharge: Home with Homehealth Within: Other - Inpatient Certification Based on my medical assessment, after consideration of the patient's comorbidities, presenting symptoms, or acuity I expect that the services needed warrant INPATIENT care.: Yes I certify that my determination is in accordance with my understanding of Medicare's requirements for reasonable and necessary INPATIENT services [42 CFR 412.3e].: Yes Medical Necessity: Significant Comorbidiites Make Outpatient Treatment Too Risky, Need Close Monitoring Due to Risk of Patient Decompensation, Need For Continuous Telemetry Monitoring, Risk of Complication if Not Cared For in Hospital, Risk of Diagnosis Which Will Require Inpatient Eval/Care/Monitoring Post Hospital Care: D/C Firer Helper Documentation - Plan Summary Plan Summary: Continue current medication management. Encouraged dietary and fluid restriction compliance. Obtain BMP, CBC with diff in am.
[2019-10-15] MEDS: TRAMADOL HCL 50 MG TABLET PO PRN (21:57)
[2019-10-15] MEDS: ATORVASTATIN CALCIUM 80 MG TABLET PO SCH (21:57)
[2019-10-15] MEDS: ZOLPIDEM TARTRATE 5 MG TABLET PO SCH (21:57)
[2019-10-15] MEDS: WARFARIN SODIUM 3 MG TABLET PO SCH (21:58)
[2019-10-15] MEDS: DIPHENHYDRAMINE HCL 50 MG/ML VIAL IV PRN (21:59)
[2019-10-16 00:46] LABS: APPEARANCE,URINE CLEAR; BILIRUBIN,URINE NEGATIVE (NEGATIVE); COLOR,URINE YELLOW; GLUCOSE, URINE NEGATIVE (NEGATIVE); KETONES,URINE NEGATIVE (NEGATIVE); LEUKOCYTE ESTERASE,URINE NEGATIVE (NEGATIVE); NITRITE,URINE NEGATIVE (NEGATIVE); PROTEIN,URINE NEGATIVE (NEGATIVE); URINE SPECIFIC GRAVITY 1.009; UROBILINOGEN,URINE NEGATIVE mg/dL (<2.0)
[2019-10-16] MEDS: ISOSORBIDE DINITRATE 20 MG TABLET PO SCH ×3 (05:41→21:25)
[2019-10-16] MEDS: FUROSEMIDE 80 MG TABLET PO SCH ×3 (05:41→21:25)
[2019-10-16 06:00] LABS: INTERNATIONAL RATION (INR) 2.55; PROTHROMBIN TIME 27.9 SEC (11.4-15.4)
[2019-10-16] MEDS: CARVEDILOL 12.5 MG TABLET PO SCH ×2 (09:04→21:25)
[2019-10-16] MEDS: LUBIPROSTONE 24 MCG CAPSULE PO SCH ×2 (09:05→21:23)
[2019-10-16] MEDS: CALCITRIOL 0.25 MCG CAPSULE PO SCH (09:05)
[2019-10-16] MEDS: POTASSIUM CHLORIDE 10 MEQ TABLET.ER PO SCH (09:05)
[2019-10-16] MEDS: CHOLECALCIFEROL (D3) 400 UNIT TABLET PO SCH (09:05)
[2019-10-16] MEDS: ALLOPURINOL 100 MG TABLET PO SCH (09:06)
[2019-10-16] MEDS: FERROUS SULFATE 325 MG TABLET PO SCH (09:06)
[2019-10-16] MEDS: SACUBITRIL/VALSARTAN 97 MG/103 MG TABLET PO SCH ×2 (09:06→21:24)
[2019-10-16] MEDS: AMLODIPINE BESYLATE 10 MG TABLET PO SCH (09:06)
[2019-10-16] MEDS: TRAMADOL HCL 50 MG TABLET PO PRN ×2 (09:08→21:24)
[2019-10-16] MEDS: DIPHENHYDRAMINE HCL 50 MG/ML VIAL IV PRN ×2 (09:09→21:25)
--- NOTE | 2019-10-16 14:20 | PDOC PROGRESS REPORT ---
Subjective Progress Note for:: 10/16/19 Subjective:: Patient denied any chest pain or difficulty with breathing. No fever or chills. Appetite and p.o intake is improving. No nausea or vomiting. No abdominal pain. Reason For Visit: ACUTE COMBINED SYSTOLIC AND DIASTOLIC HEART Physical Exam Vital Signs: Temp Pulse Resp BP Pulse Ox 97.5 F 73 17 90/64 L 100 10/16/19 11:08 10/16/19 14:00 10/16/19 11:08 10/16/19 11:08 10/16/19 11:08 Intake & Output 10/15/19 10/16/19 10/17/19 06:59 06:59 06:59 Intake Total 1462 1290 720 Output Total 1300 1700 0 Balance 162 -410 720 Weight 116.6 kg 112.2 kg Physical Exam: General appearance: PRESENT: no acute distress, obese Eye exam: PRESENT: conjunctiva pink. ABSENT: pallor, scleral icterus Ear exam: PRESENT: normal external ear exam Mouth exam: PRESENT: moist Respiratory exam: PRESENT: clear to auscultation abdi, decreased breath sounds - at lumng bases Cardiovascular exam: PRESENT: RRR, +S1, +S2, systolic murmur. ABSENT: diastolic murmur, rubs GI/Abdominal exam: PRESENT: normal bowel sounds, soft. ABSENT: distended, guarding, mass, organomegaly, rebound, tenderness Extremities exam: PRESENT: pedal edema Neurological exam: PRESENT: alert, awake, oriented to person, oriented to place, oriented to time, oriented to situation, CN II-XII grossly intact. ABSENT: motor sensory deficit Psychiatric exam: PRESENT: appropriate affect, normal mood. ABSENT: homicidal ideation, suicidal ideation Skin exam: PRESENT: dry, warm Results Laboratory Results: 10/15/19 14:55 10/13/19 04:58 10/15/19 10/15/19 14:55 22:10 WBC 5.3 RBC 4.52 Hgb 12.3 Hct 38.1 MCV 84 MCH 27.3 MCHC 32.4 RDW 19.6 H Plt Count 246 Urine Color YELLOW Urine Appearance CLEAR Urine pH 6.0 Ur Specific [place] 1.009 Urine Protein NEGATIVE Urine Glucose (UA) NEGATIVE Urine Ketones NEGATIVE Urine Blood SMALL H Urine Nitrite NEGATIVE Ur Leukocyte Esterase NEGATIVE Urine WBC (Auto) 5 Urine RBC (Auto) 4 01/09/1610/09/19 10/09/19 06:15 14:06 14:06 Creatine Kinase 257 H CK-MB (CK-2) 4.05 Troponin I 0.047 0.067 NT-Pro-B Natriuret Pep [id number] H 10/09/19 10/09/19 10/10/19 20:45 20:45 02:29 Creatine Kinase 206 H 201 H CK-MB (CK-2) 4.95 H Troponin I 0.054 NT-Pro-B Natriuret Pep 10/10/19 02:29 Creatine Kinase CK-MB (CK-2) 4.15 Troponin I 0.051 NT-Pro-B Natriuret Pep Impressions: Thoracentesis Ultrasound 10/10/19 00:00 IMPRESSION: SUCCESSFUL THORACENTESIS USING ULTRASOUND GUIDANCE. Chest X-Ray 10/10/19 16:30 IMPRESSION: No pneumothorax several hours following right-sided thoracentesis. Assessment & Plan - Diagnosis (1) Acute on chronic combined systolic and diastolic CHF, NYHA class 3 Is this a current diagnosis for this admission?: Yes (2) Cardiomyopathy Qualifiers: Cardiomyopathy type: unspecified Qualified Code(s): I42.9 - Cardiomyopathy, unspecified Is this a current diagnosis for this admission?: Yes (3) Hypertension Qualifiers: Hypertension type: essential hypertension Qualified Code(s): I10 - Essential (primary) hypertension Is this a current diagnosis for this admission?: Yes (4) Type 2 diabetes mellitus Qualifiers: Diabetes mellitus assisted insulin use: unspecified terminal worker insulin use status Diabetes mellitus complication status: without complication Qualified Code(s): E11.9 - Type 2 diabetes mellitus without complications Is this a current diagnosis for this admission?: Yes (5) CKD (chronic kidney disease) stage 3, GFR 30-59 ml/min Is this a current diagnosis for this admission?: Yes - Time Time Spent with patient: 25-34 minutes Level of Care: IMCU Medications reviewed and adjusted accordingly: Yes Anticipated discharge: Home with Homehealth Within: Other - Inpatient Certification Based on my medical assessment, after consideration of the patient's comorbidities, presenting symptoms, or acuity I expect that the services needed warrant INPATIENT care.: Yes I certify that my determination is in accordance with my understanding of Medicare's requirements for reasonable and necessary INPATIENT services [42 CFR 412.3e].: Yes Medical Necessity: Significant Comorbidiites Make Outpatient Treatment Too Risky, Need Close Monitoring Due to Risk of Patient Decompensation, Need For Continuous Telemetry Monitoring, Risk of Complication if Not Cared For in Hospital, Risk of Diagnosis Which Will Require Inpatient Eval/Care/Monitoring Post Hospital Care: D/C Mat Packer Documentation - Plan Summary Plan Summary: Continue current medication management.
[2019-10-16] MEDS: ZOLPIDEM TARTRATE 5 MG TABLET PO SCH (21:24)
[2019-10-16] MEDS: WARFARIN SODIUM 3 MG TABLET PO SCH (21:25)
[2019-10-16] MEDS: ATORVASTATIN CALCIUM 80 MG TABLET PO SCH (21:25)
[2019-10-17 05:57] LABS: INTERNATIONAL RATION (INR) 2.99; PROTHROMBIN TIME 31.7 SEC (11.4-15.4)
[2019-10-17] MEDS: ISOSORBIDE DINITRATE 20 MG TABLET PO SCH ×3 (06:48→22:33)
[2019-10-17] MEDS: FUROSEMIDE 80 MG TABLET PO SCH ×3 (06:48→22:33)
[2019-10-17] MEDS: POTASSIUM CHLORIDE 10 MEQ TABLET.ER PO SCH (10:15)
[2019-10-17] MEDS: FERROUS SULFATE 325 MG TABLET PO SCH (10:15)
[2019-10-17] MEDS: CALCITRIOL 0.25 MCG CAPSULE PO SCH (10:15)
[2019-10-17] MEDS: LUBIPROSTONE 24 MCG CAPSULE PO SCH ×2 (10:15→22:32)
[2019-10-17] MEDS: CHOLECALCIFEROL (D3) 400 UNIT TABLET PO SCH (10:15)
[2019-10-17] MEDS: ALLOPURINOL 100 MG TABLET PO SCH (10:15)
[2019-10-17] MEDS: SACUBITRIL/VALSARTAN 97 MG/103 MG TABLET PO SCH ×2 (10:16→22:32)
[2019-10-17] MEDS: AMLODIPINE BESYLATE 10 MG TABLET PO SCH (10:18)
[2019-10-17] MEDS: CARVEDILOL 12.5 MG TABLET PO SCH ×2 (10:18→22:34)
[2019-10-17] MEDS: DIPHENHYDRAMINE HCL 50 MG/ML VIAL IV PRN ×2 (10:21→22:38)
[2019-10-17] MEDS: TRAMADOL HCL 50 MG TABLET PO PRN ×2 (10:21→22:37)
--- NOTE | 2019-10-17 21:00 | PDOC PROGRESS REPORT ---
Subjective Progress Note for:: 10/17/19 Subjective:: Patient seen by the bedside,, she continues to be very fatigued asking for physical therapy Reason For Visit: ACUTE COMBINED SYSTOLIC AND DIASTOLIC HEART Physical Exam Vital Signs: Temp Pulse Resp BP Pulse Ox 97.5 F 77 17 109/66 97 10/17/19 15:48 10/17/19 19:00 10/17/19 15:48 10/17/19 15:48 10/17/19 15:48 Intake & Output 10/16/19 10/17/19 10/18/19 06:59 06:59 06:59 Intake Total 1290 1466 1080 Output Total 1700 300 0 Balance -410 1166 1080 Weight 112.2 kg 112.8 kg 112.8 kg General appearance: PRESENT: no acute distress Eye exam: PRESENT: PERRLA Respiratory exam: PRESENT: rhonchi Cardiovascular exam: PRESENT: +S1, +S2, systolic murmur GI/Abdominal exam: PRESENT: soft Extremities exam: PRESENT: pedal edema Neurological exam: PRESENT: alert, CN II-XII grossly intact Results Laboratory Results: 10/15/19 14:55 10/13/19 04:58 10/09/19 10/09/19 10/09/19 06:15 14:06 14:06 Creatine Kinase 257 H CK-MB (CK-2) 4.05 Troponin I 0.047 0.067 NT-Pro-B Natriuret Pep [id number] H 10/09/19 10/09/19 10/10/19 20:45 20:45 02:29 Creatine Kinase 206 H 201 H CK-MB (CK-2) 4.95 H Troponin I 0.054 NT-Pro-B Natriuret Pep 10/10/19 02:29 Creatine Kinase CK-MB (CK-2) 4.15 Troponin I 0.051 NT-Pro-B Natriuret Pep Impressions: Thoracentesis Ultrasound 10/10/19 00:00 IMPRESSION: SUCCESSFUL THORACENTESIS USING ULTRASOUND GUIDANCE. Chest X-Ray 10/10/19 16:30 IMPRESSION: No pneumothorax several hours following right-sided thoracentesis. Assessment & Plan - Diagnosis (1) Acute combined systolic (congestive) and diastolic (congestive) heart f ailure Is this a current diagnosis for this admission?: Yes (2) Cardiomyopathy Qualifiers: Cardiomyopathy type: unspecified Qualified Code(s): I42.9 - Cardiomyopathy, unspecified Is this a current diagnosis for this admission?: Yes (3) CKD (chronic kidney disease) stage 3, GFR 30-59 ml/min Is this a current diagnosis for this admission?: Yes (4) ICD (implantable cardioverter-defibrillator) in place Is this a current diagnosis for this admission?: Yes (5) Bilateral lower extremity edema Is this a current diagnosis for this admission?: Yes - Time Time Spent with patient: 25-34 minutes
[2019-10-17 21:39] LABS: ABSOLUTE EOSINOPHILS # (AUTO) 0.1 10^3/uL (0.0-0.6); ABSOLUTE LYMPHOCYTES (AUTO) 0.4 10^3/uL (0.5-4.7); ABSOLUTE MONOCYTES (AUTO) 0.2 10^3/uL (0.1-1.4); BASOPHILS % (AUTO) 0.7 % (0-2); EOSINOPHILS % (AUTO) 2.8 % (0-6); HEMATOCRIT 37.2 % (36.0-47.0); HEMOGLOBIN 11.7 g/dL (12.0-15.5); LYMPHOCYTES % (AUTO) 10.5 % (13-45); MEAN CORPUSCULAR HGB CONC 31.4 g/dL (32.0-36.0); MEAN CORPUSCULAR VOLUME 86 fl (80-97); MONOCYTES % (AUTO) 6.6 % (3-13); PLATELET COUNT 258 10^3/uL (150-450); RED BLOOD COUNT 4.33 10^6/uL (3.72-5.28); RED CELL DISTRIBUTION WIDTH 19.9 % (11.5-14.0); SEGMENTED NEUTROPHILS % (AUTO) 79.4 % (42-78); TOTAL CELLS COUNTED % (AUTO) 100 %; WHITE BLOOD COUNT 3.8 10^3/uL (4.0-10.5)
[2019-10-17 21:51] LABS: ALBUMIN 2.3 g/dL (3.5-5.0); ALKALINE PHOSPHATASE 152 U/L (38-126); ASPARTATE AMINO TRANSFERASE 17 U/L (14-36); BILIRUBIN,TOTAL 0.4 mg/dL (0.2-1.3); BLOOD UREA NITROGEN 33 mg/dL (7-20); CARBON DIOXIDE 27 mmol/L (22-30); CHLORIDE 108 mmol/L (98-107); GLUCOSE 172 mg/dL (75-110); POTASSIUM 4.4 mmol/L (3.6-5.0); TOTAL PROTEIN 4.6 g/dL (6.3-8.2)
[2019-10-17 21:57] LABS: ANION GAP 4 (5-19)
[2019-10-17] MEDS: ZOLPIDEM TARTRATE 5 MG TABLET PO SCH (22:32)
[2019-10-17] MEDS: ATORVASTATIN CALCIUM 80 MG TABLET PO SCH (22:33)
[2019-10-17] MEDS: WARFARIN SODIUM 3 MG TABLET PO SCH (22:33)
[2019-10-17 23:14] LABS: APPEARANCE,URINE CLEAR; BILIRUBIN,URINE NEGATIVE (NEGATIVE); COLOR,URINE YELLOW; GLUCOSE, URINE NEGATIVE (NEGATIVE); KETONES,URINE NEGATIVE (NEGATIVE); LEUKOCYTE ESTERASE,URINE NEGATIVE (NEGATIVE); NITRITE,URINE NEGATIVE (NEGATIVE); PROTEIN,URINE NEGATIVE (NEGATIVE); URINE SPECIFIC GRAVITY 1.008; UROBILINOGEN,URINE NEGATIVE mg/dL (<2.0)
[2019-10-18] MEDS: FUROSEMIDE 80 MG TABLET PO SCH ×3 (05:16→21:57)
[2019-10-18] MEDS: ISOSORBIDE DINITRATE 20 MG TABLET PO SCH ×3 (05:17→21:57)
[2019-10-18 06:47] LABS: INTERNATIONAL RATION (INR) 3.02; PROTHROMBIN TIME 31.9 SEC (11.4-15.4)
[2019-10-18] MEDS: POTASSIUM CHLORIDE 10 MEQ TABLET.ER PO SCH (09:38)
[2019-10-18] MEDS: CALCITRIOL 0.25 MCG CAPSULE PO SCH (09:38)
[2019-10-18] MEDS: CARVEDILOL 12.5 MG TABLET PO SCH ×2 (09:39→21:56)
[2019-10-18] MEDS: AMLODIPINE BESYLATE 10 MG TABLET PO SCH (09:39)
[2019-10-18] MEDS: SACUBITRIL/VALSARTAN 97 MG/103 MG TABLET PO SCH ×2 (09:39→21:56)
[2019-10-18] MEDS: CHOLECALCIFEROL (D3) 400 UNIT TABLET PO SCH (09:39)
[2019-10-18] MEDS: ALLOPURINOL 100 MG TABLET PO SCH (09:39)
[2019-10-18] MEDS: LUBIPROSTONE 24 MCG CAPSULE PO SCH ×2 (09:39→21:56)
[2019-10-18] MEDS: FERROUS SULFATE 325 MG TABLET PO SCH (09:40)
[2019-10-18] MEDS: DIPHENHYDRAMINE HCL 50 MG/ML VIAL IV PRN ×2 (09:45→21:58)
[2019-10-18] MEDS: TRAMADOL HCL 50 MG TABLET PO PRN ×2 (09:45→21:57)
[2019-10-18 15:19] LABS: HEMATOCRIT 35.1 % (36.0-47.0); HEMOGLOBIN 11.2 g/dL (12.0-15.5); MEAN CORPUSCULAR HEMOGLOBIN 27.2 pg (27.0-33.4); MEAN CORPUSCULAR HGB CONC 31.9 g/dL (32.0-36.0); MEAN CORPUSCULAR VOLUME 85 fl (80-97); PLATELET COUNT 229 10^3/uL (150-450); RED BLOOD COUNT 4.12 10^6/uL (3.72-5.28); RED CELL DISTRIBUTION WIDTH 20.3 % (11.5-14.0); WHITE BLOOD COUNT 4.6 10^3/uL (4.0-10.5)
--- NOTE | 2019-10-18 21:19 | PDOC DISCHARGE SUMMARY ---
Impression - Admit/DC Date/PCP Admission Date/Primary Care Provider: 10/09/19 11:23 VU GUZMAN MD Discharge Date: 10/18/19 - Discharge Diagnosis (1) Acute combined systolic (congestive) and diastolic (congestive) heart failure Is this a current diagnosis for this admission?: Yes (2) Cardiomyopathy Is this a current diagnosis for this admission?: Yes (3) CKD (chronic kidney disease) stage 3, GFR 30-59 ml/min Is this a current diagnosis for this admission?: Yes (4) ICD (implantable cardioverter-defibrillator) in place Is this a current diagnosis for this admission?: Yes (5) Bilateral lower extremity edema Is this a current diagnosis for this admission?: Yes - Additional Information Discharge Diet: Cardiac Discharge Activity: Activity As Tolerated, Balance Activity w/Rest, Weigh Daily Referrals: VU GUZMAN MD [Primary Care Provider] - 10/18/19 1:45 pm Prescriptions: Warfarin Sodium [Coumadin 3 mg Tablet] 3 mg PO QHS #30 tablet Carvedilol [Coreg 12.5 mg Tablet] 25 mg PO Q12 #180 tablet Home Medications: Allopurinol [Zyloprim 100 mg Tablet] 100 mg PO DAILY 09/08/19 Amlodipine Besylate [Norvasc 10 mg Tablet] 10 mg PO DAILY 09/08/19 Atorvastatin Calcium [Lipitor 80 mg Tablet] 80 mg PO QHS 09/08/19 Calcitriol [Rocaltrol 0.25 mcg Capsule] 0.25 mcg PO DAILY 09/08/19 Ferrous Sulfate [Feosol 325 mg Tablet] 325 mg PO DAILY 09/08/19 Furosemide [Lasix 80 mg Tablet] 80 mg PO Q8 09/08/19 Lubiprostone [Amitiza 24 Mcg Capsule] 24 mcg PO Q12 09/08/19 Sacubitril/Valsartan [Entresto 97 mg/103 mg Tablet] 1 tab PO Q12 09/08/19 Zolpidem Tartrate [Ambien] 10 mg PO QHS #30 09/19/19 Bumetanide [Bumex 1 mg Tablet] 3 mg PO DAILY 10/09/19 Cholecalciferol (Vitamin D3) [Vitamin D3] 400 unit PO DAILY 10/09/19 Isosorbide Dinitrate [Isordil Titradose 20 mg Tablet] 60 mg PO TID 10/09/19 Carvedilol [Coreg 12.5 mg Tablet] 25 mg PO Q12 #180 tablet 10/18/19 Furosemide [Lasix 80 mg Tablet] 80 mg PO Q8 tablet 10/18/19 Tramadol HCl [Ultram 50 mg Tablet] 50 mg PO Q6HP PRN tablet 10/18/19 Warfarin Sodium [Coumadin 3 mg Tablet] 3 mg PO QHS #30 tablet 10/18/19 Zolpidem Tartrate [Ambien 5 mg Tablet] 10 mg PO QHS tablet 10/18/19 History of Present Illiness History of Present Illness: BERONICA YEUNG is a 44 year old female, she is well-known to me, she has a history of chronic combined systolic and diastolic heart failure, pulmonary hypertension, nephrotic syndrome, she came to the emergency room for evaluation of shortness of breath, a chest x-ray was done, it demonstrated bilateral pleural effusion right more than left, the right pleural effusion is extensive involving over half of the space of the pleura space. In the emergency room she required noninvasive positive pressure ventilation, BiPAP. She was recently admitted in this hospital, she was discharged on September 19, 2019, on that admission she had a 2D echo done, the 2D echo demonstrated moderate to severely reduced left ventricular systolic function, the estimated ejection fraction was 20 to 25%. The right ventricle systolic function was also moderately reduced there was severe pulmonary hypertension. In the emergency room the BNP was 28,300. She is medically optimized she is on evidence-based beta-bear, Entresto, she has a combined pacemaker defibrillator device. She is obviously in acute CHF she will be admitted and optimized, she will be treated with Lasix infusion for symptom control and also gets thoracentesis. Hospital Course Hospital Course: Patient was admitted for the management of acute systolic diastolic heart failure, she was treated with intravenous furosemide, she had large pleural effusion she underwent thoracentesis, over a liter of fluid was removed from the lung.. Patient was physically deconditioned, she was seen by physical therapist in the hospital.She has underlining chronic combined conditions including CKD stage III,She also required noninvasive positive pressure ventilation, BiPAP. She is chronically on BiPAP at home.Patient is not very compliant with outpatient follow-up, she was advised to follow-up in the office within 7 days of discharge, the last time she was admitted she did not follow-up until this admission Physical Exam Vital Signs: Temp Pulse Resp BP Pulse Ox 97.7 F 81 16 112/67 100 10/18/19 16:38 10/18/19 16:38 10/18/19 16:38 10/18/19 16:38 10/18/19 16:38 Intake & Output 10/17/19 10/18/19 10/19/19 06:59 06:59 06:59 Intake Total 1466 1530 1025 Output Total 300 1300 Balance 0402 096 4214 Weight 112.8 kg 114.1 kg General appearance: PRESENT: no acute distress Eye exam: PRESENT: PERRLA Respiratory exam: PRESENT: clear to auscultation abdi Cardiovascular exam: PRESENT: +S1, +S2 GI/Abdominal exam: PRESENT: soft Extremities exam: PRESENT: +2 edema Neurological exam: PRESENT: alert, CN II-XII grossly intact Results Laboratory Results: WBC 4.6 10^3/uL (4.0-10.5) 10/18/19 15:07 RBC 4.12 10^6/uL (3.72-5.28) 10/18/19 15:07 Hgb 11.2 g/dL (12.0-15.5) L 10/18/19 15:07 Hct 35.1 % (36.0-47.0) L 10/18/19 15:07 MCV 85 fl (80-97) 10/18/19 15:07 MCH 27.2 pg (27.0-33.4) 10/18/19 15:07 MCHC 31.9 g/dL (32.0-36.0) L 10/18/19 15:07 RDW 20.3 % (11.5-14.0) H 10/18/19 15:07 Plt Count 229 10^3/uL (150-450) 10/18/19 15:07 Lymph % (Auto) 10.5 % (13-45) L 10/17/19 21:23 Clinch % (Auto) 6.6 % (3-13) 10/17/19 21:23 Eos % (Auto) 2.8 % (0-6) 10/17/19 21:23 Baso % (Auto) 0.7 % (0-2) 10/17/19 21:23 Absolute Neuts (auto) 3.0 10^3/uL (1.7-8.2) 10/17/19 21: Absolute Lymphs (auto) 0.4 10^3/uL (0.5-4.7) L 10/17/19 21:23 Absolute Monos (auto) 0.2 10^3/uL (0.1-1.4) 10/17/19 21: Absolute Eos (auto) 0.1 10^3/uL (0.0-0.6) 10/17/19 21: Absolute Basos (auto) 0.0 10^3/uL (0.0-0.2) 10/17/19 21: Seg Neutrophils % 79.4 % (42-78) H 10/17/19 21: PT 31.9 SEC (11.4-15.4) H 10/18/19 05:08 INR 3.02 10/18/19 05:08 APTT 30.0 SEC (23.5-35.8) 10/09/19 14:06 Sodium 138.7 mmol/L (137-145) 10/17/19 21:23 Potassium 4.4 mmol/L (3.6-5.0) 10/17/19 21: Chloride 108 mmol/L (98-107) H 10/17/19 21:23 Carbon Dioxide 27 mmol/L (22-30) 10/17/19 21:23 Anion Gap 4 (5-19) L 10/17/19 21:23 BUN 33 mg/dL (7-20) H 10/17/19 21:23 Creatinine 2.05 mg/dL (0.52-1.25) H 10/17/19 21:23 Est GFR ( Amer) 32 (>60) L 10/17/19 21:23 Est GFR (Non-Af Amer) Cancelled 10/09/19 08:20 Est GFR (MDRD) Non-Af 26 (>60) L 10/17/19 21:23 Glucose 172 mg/dL (75-110) H 10/17/19 21:23 Hemoglobin A1c % 6.4 % (4.7-6.0) H 10/10/19 06:09 Calcium 8.0 mg/dL (8.4-10.2) L 10/17/19 21:23 Magnesium 1.9 mg/dL (1.6-2.3) 10/09/19 14:06 Total Bilirubin 0.4 mg/dL (0.2-1.3) 10/17/19 21:23 Direct Bilirubin 0.0 mg/dL (0.0-0.4) 10/17/19 21:23 Neonat Total Bilirubin Not Reportable 10/17/19 21:23 Neonat Direct Bilirubin Not Reportable 10/17/19 21:23 Neonat Indirect Bili Not Reportable 10/17/19 21:23 AST 17 U/L (14-36) 10/17/19 21:23 ALT 9 U/L (<35) 10/17/19 21:23 Alkaline Phosphatase 152 U/L (38-126) H 10/17/19 21:23 Lactate Dehydrogenase 309 U/L (120-246) H 10/09/19 14:06 Creatine Kinase 201 U/L (30-135) H 10/10/19 02:29 CK-MB (CK-2) 4.15 ng/mL (<4.55) 10/10/19 02:29 Troponin I 0.051 ng/mL 10/10/19 02:29 NT-Pro-B Natriuret Pep 87255 pg/mL (<125) H 10/09/19 06:15 Total Protein 4.6 g/dL (6.3-8.2) L 10/17/19 21:23 Albumin 2.3 g/dL (3.5-5.0) L 10/17/19 21:23 Triglycerides 98 mg/dL (<150) 10/10/19 06:09 Cholesterol 141.60 mg/dL (0-200) 10/10/19 06:09 LDL Cholesterol Direct 91 mg/dL (<100) 10/10/19 06:09 VLDL Cholesterol 20.0 mg/dL (10-31) 10/10/19 06:09 HDL Cholesterol 31 mg/dL (>40) L 10/10/19 06:09 EGFR Cancelled 10/09/19 08:20 TSH 3.46 uIU/mL (0.47-4.68) 10/10/19 06:09 Free T4 1.35 ng/dL (0.78-2.19) 10/10/19 06:09 Urine Color YELLOW 10/17/19 22:43 Urine Appearance CLEAR 10/17/19 22:43 Urine pH 5.0 (5.0-9.0) 10/17/19 22:43 Ur Specific Plush 1.008 10/17/19 22:43 Urine Protein NEGATIVE mg/dL (NEGATIVE) 10/17/19 22:43 Urine Glucose (UA) NEGATIVE mg/dL (NEGATIVE) 10/17/19 22:43 Urine Ketones NEGATIVE mg/dL (NEGATIVE) 10/17/19 22:43 Urine Blood MODERATE (NEGATIVE) H 10/17/19 22:43 Urine Nitrite NEGATIVE (NEGATIVE) 10/17/19 22:43 Urine Bilirubin NEGATIVE (NEGATIVE) 10/17/19 22:43 Urine Urobilinogen NEGATIVE mg/dL (<2.0) 10/17/19 22:43 Ur Leukocyte Esterase NEGATIVE (NEGATIVE) 10/17/19 22:43 Urine WBC (Auto) 3 /HPF 10/17/19 22:43 Urine RBC (Auto) 10 /HPF 10/17/19 22:43 U Hyaline Cast (Auto) 1 /LPF 10/15/19 22:10 Urine Bacteria (Auto) TRACE /HPF 10/17/19 22:43 Squamous Epi Cells Auto 1 /HPF 10/17/19 22:43 Urine Mucus (Auto) RARE /LPF 10/17/19 22:43 Urine Creatinine 109.0 mg/dL (15-278) 10/09/19 12:11 Protein/Creatinin Ratio 1.0 mg/mg (0.0-0.2) H 10/09/19 12:11 Urine Total Protein 112.1 mg/dL (<12) H 10/09/19 12:11 Urine Ascorbic Acid NEGATIVE (NEGATIVE) 10/17/19 22:43 Fluid Type PLEURAL 10/10/19 14:15 Fluid Source LUNG 10/10/19 14:15 Fluid Color YELLOW 10/10/19 14:15 Fluid Appearance CLEAR 10/10/19 14:15 Fluid Viscosity LIQUID 10/10/19 14:15 Fluid WBC 22 /uL 10/10/19 14:15 Fluid RBC 12 /uL 10/10/19 14:15 Fluid Seg Neutrophils 14 % 10/10/19 14:15 Fluid Lymphocytes 67 % 10/10/19 14:15 Fluid Monocytes 19 % 10/10/19 14:15 Fluid Eosinophils 0 % 10/10/19 14:15 Fluid Basophils 0 % 10/10/19 14:15 Fluid Glucose 116 mg/dL (.) 10/10/19 14:15 Fluid Total Protein 0.9 g/dL (.) 10/10/19 14:15 Fluid LDH 46 IU/L (.) 10/10/19 14:15 Fluid Amylase 9 U/L (.) 10/10/19 14:15 10/09/19 10/09/19 10/09/19 06:15 14:06 20:45 CK-MB (CK-2) 4.05 4.95 H Troponin I 0.047 0.067 0.054 NT-Pro-B Natriuret Pep 38456 H 10/10/19 02:29 CK-MB (CK-2) 4.15 Troponin I 0.051 NT-Pro-B Natriuret Pep Impressions: Chest X-Ray 10/09/19 06:08 IMPRESSION: Findings consistent with congestive failure including cardiomegaly, vascular congestion and effusions. Chest X-Ray 10/10/19 00:00 IMPRESSION: No pneumothorax immediately following right-sided thoracentesis. Thoracentesis Ultrasound 10/10/19 00:00 IMPRESSION: SUCCESSFUL THORACENTESIS USING ULTRASOUND GUIDANCE. Chest X-Ray 10/10/19 16:30 IMPRESSION: No pneumothorax several hours following right-sided thoracentesis. Stroke Is this a Stroke Patient?: No Acute Heart Failure - Is this a Heart Failure Patient?: Yes Documentation of LVEF assessment?: Yes LVEF < 40%?: Yes-if yes answer questions a through e a) Discharged on ACEI?: Yes b) Discharges on ARB?: Yes c) Discharged on ARNI?: Yes d) Discharged on evidence-based Beta bear(carvedilol, sustained release metoprolol succinate, or bisoprolol)?: Yes e) For LVEF <35%, discharged on Aldosterone antagonist?: N/A (LVEF > or = 35%) 3. Anticoagulant therapy for permanect/persistent/paraoxysmal Afib or Aflutter: N/A
[2019-10-18] MEDS: ZOLPIDEM TARTRATE 5 MG TABLET PO SCH (21:57)
[2019-10-18] MEDS: ATORVASTATIN CALCIUM 80 MG TABLET PO SCH (21:57)
[2019-10-18] MEDS: WARFARIN SODIUM 3 MG TABLET PO SCH (21:58)
[2019-10-19 04:49] LABS: INTERNATIONAL RATION (INR) 2.84; PROTHROMBIN TIME 30.4 SEC (11.4-15.4)
[2019-10-19] MEDS: FUROSEMIDE 80 MG TABLET PO SCH (06:17)
[2019-10-19] MEDS: ISOSORBIDE DINITRATE 20 MG TABLET PO SCH (06:17)
[2019-10-19 08:38] VITALS: BP 124/79
[2019-10-19] MEDS: CARVEDILOL 12.5 MG TABLET PO SCH (09:11)
[2019-10-19] MEDS: CALCITRIOL 0.25 MCG CAPSULE PO SCH (09:12)
[2019-10-19] MEDS: ALLOPURINOL 100 MG TABLET PO SCH (09:12)
[2019-10-19] MEDS: LUBIPROSTONE 24 MCG CAPSULE PO SCH (09:12)
[2019-10-19] MEDS: SACUBITRIL/VALSARTAN 97 MG/103 MG TABLET PO SCH (09:12)
[2019-10-19] MEDS: AMLODIPINE BESYLATE 10 MG TABLET PO SCH (09:12)
[2019-10-19] MEDS: CHOLECALCIFEROL (D3) 400 UNIT TABLET PO SCH (09:12)
[2019-10-19] MEDS: FERROUS SULFATE 325 MG TABLET PO SCH (09:12)
[2019-10-19] MEDS: POTASSIUM CHLORIDE 10 MEQ TABLET.ER PO SCH (09:13)
[2019-10-19] MEDS: TRAMADOL HCL 50 MG TABLET PO PRN (09:17)
[2019-10-19] MEDS: DIPHENHYDRAMINE HCL 50 MG/ML VIAL IV PRN (09:17)
[2019-10-19] MEDS ORDERED: WARFARIN SODIUM 5 MG TABLET PO SCH (22:00)
== END 2019-10-19 11:50 | disposition home health service (06) | DRG 291 ==
LOC: ER 05:22 → EH 11:23 → 3W 12:56
PROVIDERS: ADMIT Internal Medicine; ATTEND Internal Medicine
PROC: 0W993ZX Drainage of Right Pleural Cavity, Percutaneous Approach, Diagnostic (ICD-10-PCS; principal; 2019-10-09)
PROC: 3E02340 Introduction of Influenza Vaccine into Muscle, Percutaneous Approach (ICD-10-PCS; 2019-10-19)
DX: I13.0 Hypertensive heart and chronic kidney disease with heart failure and stage 1 through stage 4 chronic kidney disease, or unspecified chronic kidney disease (principal); I50.43 Acute on chronic combined systolic (congestive) and diastolic (congestive) heart failure; J91.8 Pleural effusion in other conditions classified elsewhere; I42.9 Cardiomyopathy, unspecified; E11.22 Type 2 diabetes mellitus with diabetic chronic kidney disease; N18.3 Chronic kidney disease, stage 3 (moderate); I27.20 Pulmonary hypertension, unspecified; E11.21 Type 2 diabetes mellitus with diabetic nephropathy; I25.10 Atherosclerotic heart disease of native coronary artery without angina pectoris; J44.9 Chronic obstructive pulmonary disease, unspecified; I25.2 Old myocardial infarction; Z95.5 Presence of coronary angioplasty implant and graft; Z95.810 Presence of automatic (implantable) cardiac defibrillator; Z91.11 Patient's noncompliance with dietary regimen; Z79.01 Long term (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 of 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; Z79.899 Other long term (current) drug therapy; Z82.49 Family history of ischemic heart disease and other diseases of the circulatory system; Z88.1 Allergy status to other antibiotic agents; Z88.5 Allergy status to narcotic agent; Z23 Encounter for immunization
CPT/HCPCS: 32555; 36415; 71045; 71046; 80048; 80053; 80061; 80076; 81001; 82150; 82550; 82553; 82570; 82945; 83036; 83615; 83735; 83880; 84155; 84156; 84157; 84439; 84443; 84484; 85025; 85027; 85610; 85730; 87070; 87075; 87086; 87101; 87205; 87252; 89050; 90686; 93005; 93010; 94660; 96374; 96375; 99285; J1200; J1940; J2270; J3490; J7050

== ENCOUNTER 2019-10-30 02:32 | Inpatient (IN) | payer MEDICARE, MEDICAID ==
[2019-10-30] MEDS ORDERED: NITROGLYCERIN 2% OINTMENT 1 GM PACKET TP ONE (02:44)
[2019-10-30] MEDS ORDERED: FUROSEMIDE INJ/PF 20 MG/2 ML SDV IV ONE (02:47)
[2019-10-30 02:58] LABS: HEMATOCRIT 37.3 % (36.0-47.0); MEAN CORPUSCULAR HEMOGLOBIN 27.7 pg (27.0-33.4); MEAN CORPUSCULAR HGB CONC 32.2 g/dL (32.0-36.0); MEAN CORPUSCULAR VOLUME 86 fl (80-97); PLATELET COUNT 228 10^3/uL (150-450); RED BLOOD COUNT 4.34 10^6/uL (3.72-5.28); WHITE BLOOD COUNT 5.1 10^3/uL (4.0-10.5)
[2019-10-30 03:22] LABS: ABSOLUTE LYMPHOCYTES# (MANUAL) 0.6 10^3/uL (0.5-4.7); ABSOLUTE MONOCYTES # (MANUAL) 0.5 10^3/uL (0.1-1.4); BASOPHILS % (MANUAL) 0 % (0-2); EOSINOPHILS % (MANUAL) 2 % (0-6); LYMPHOCYTES % (MANUAL) 11 % (13-45); MONOCYTES % (MANUAL) 9 % (3-13); SEGMENTED NEUTROPHILS % (MAN) 77 % (42-78); TOTAL CELLS COUNTED 100
[2019-10-30 03:24] LABS: TOXIC GRANULATION SLIGHT; TOXIC VACUOLATION PRESENT
[2019-10-30 03:25] LABS: ANISOCYTOSIS 2+; BURR CELLS 2+; PLATELET COMMENT ADEQUATE; POIKILOCYTOSIS 2+; SCHISTOCYTES SLIGHT; TEAR DROP CELLS SLIGHT
[2019-10-30 03:31] LABS: APPEARANCE,URINE CLEAR; BILIRUBIN,URINE NEGATIVE (NEGATIVE); COLOR,URINE YELLOW; GLUCOSE, URINE NEGATIVE (NEGATIVE); KETONES,URINE NEGATIVE (NEGATIVE); LEUKOCYTE ESTERASE,URINE SMALL (NEGATIVE); NITRITE,URINE NEGATIVE (NEGATIVE); PROTEIN,URINE 30 mg/dL (NEGATIVE); URINE SPECIFIC GRAVITY 1.009
--- NOTE | 2019-10-30 03:37 | ER Document Report ---
Entered by ROSANNA ADLER SCRIBE 10/30/19 0243 Acting as scribe for:MARIELLA ROMERO IV, MD ED General - General Stated Complaint: TROUBLE BREATHING Primary Care Provider: VU MONTE MD [Primary Care Provider] - Follow up as needed Mode of Arrival: Medic Information source: Emergency Med Personnel Notes: This 44 year old female patient with history of CHF, CAD, and AK x1 brought in by EMS presents to the ED today with complaints of shortness of breath and dyspnea that has been ongoing since 10/19/19 per EMS. EMS reports that the patient was discharged on the after being admitted x10 days prior for similar symptoms. EMS states that the patient's symptoms have progressively worsened since onset. EMS states that the patient also complains of lower back pain and chest pain. TRAVEL OUTSIDE OF THE [place] IN LAST 30 DAYS: No - Related Data Allergies/Adverse Reactions: hydrocodone bitartrate [From Vicodin] Allergy (Verified 07/27/18 11:36) Hives hydromorphone HCl [From Dilaudid] Allergy (Verified 05/16/19 14:28) Hives levofloxacin [From Levaquin] Allergy (Verified 07/27/18 11:36) Hives oxycodone HCl [From Percocet] Allergy (Verified 07/27/18 11:36) Hives Past Medical History - General Information source: [facility] Records - Social History Smoking Status: Unknown if Ever Smoked Cigarette use (# per day): No Chew tobacco use (# tins/day): No Smoking Education Provided: No Family History: Reviewed & Not Pertinent, Hypertension - Past Medical History Cardiac Medical History: Reports: Hx Congestive Heart Failure - Chronic systolic and diastolic heart failure, Hx Coronary Artery Disease, Hx Heart Attack - STENTS/DEFIBRILLATOR/PACEMAKER, Hx Hypertension, Hx Pulmonary Embolism Pulmonary Medical History: Reports: Hx COPD, Hx Pneumonia Endocrine Medical History: Reports: Hx Diabetes Mellitus Type 2 - non compliant (pt has snacks in her suitcase etc) Renal/ Medical History: Reports: Hx Renal Insufficiency GI Medical History: Reports: Hx Gastroesophageal Reflux Disease Skin Medical History: Reports Hx Cellulitis - Left upper extremity cellulitis week and a half ago Psychiatric Medical History: Reports: Hx Depression Past Surgical History: Reports: Hx Cardiac Catheterization - stent x1, Hx Cardiac Surgery - pace/defib, Hx Coronary Stent, Hx Internal Defibrillator, Hx Pacemaker - AICD, Other - Left-sided biventricular [employer] defibrillator 02/26/2018, Lui Milner - Immunizations Hx Diphtheria, Pertussis, Tetanus Vaccination: No Hx Pneumococcal Vaccination: 06/28/13 Review of Systems - Review of Systems Constitutional: No symptoms reported EENT: No symptoms reported Cardiovascular: See HPI, Chest pain, Dyspnea Respiratory: See HPI, Short of breath Gastrointestinal: No symptoms reported Genitourinary: No symptoms reported Female Genitourinary: No symptoms reported Musculoskeletal: See HPI, Back pain Skin: No symptoms reported Hematologic/Lymphatic: No symptoms reported Neurological/Psychological: No symptoms reported -: Yes All other systems reviewed and negative Physical Exam - Vital signs Vitals: Pulse Ox 100 10/30/19 02:33 - General General appearance: Alert - AAOx3 - HEENT Head: Normocephalic, Atraumatic Eyes: Normal Pupils: PERRL - Respiratory Respiratory status: Respiratory distress - Appears to be tolerating BiPAP, Other - Increased work of breathing Chest status: Nontender Breath sounds: Rales Chest palpation: Normal - Cardiovascular Rhythm: Regular Heart sounds: Normal auscultation Murmur: No Friction rub: No Gallop: None auscultated - Abdominal Inspection: Normal Distension: No distension Bowel sounds: Normal Tenderness: Nontender Organomegaly: No organomegaly - Back Back: Normal, Nontender - Extremities General upper extremity: Normal inspection General lower extremity: Edema - +1 pitting edema to LE bilaterally - Neurological Neuro grossly intact: Yes - Psychological Associated symptoms: Normal affect, Normal mood - Skin Skin Temperature: Warm Skin Moisture: Dry Skin Color: Normal Course - Vital Signs Vital signs: Temp Pulse Resp BP Pulse Ox 30 H 141/106 H 100 10/30/19 04:21 10/30/19 04:21 10/30/19 04:21 - Laboratory Result Diagrams: 10/30/19 02:44 10/30/19 03:48 Laboratory results interpreted by me: 10/30/19 10/30/19 10/30/19 02:44 03:13 03:48 RDW 20.0 H Lymphocytes % (Manual) 11 L Potassium 3.1 L BUN 31 H Creatinine 1.65 H Est GFR ( Amer) 41 L Est GFR (MDRD) Non-Af 34 L Alkaline Phosphatase 152 H NT-Pro-B Natriuret Pep Albumin 3.1 L Urine Protein 30 H Urine Blood SMALL H Urine Urobilinogen 2.0 H Ur Leukocyte Esterase SMALL H 10/30/19 03:48 RDW Lymphocytes % (Manual) Potassium BUN Creatinine Est GFR ( Amer) Est GFR (MDRD) Non-Af Alkaline Phosphatase NT-Pro-B Natriuret Pep 52023 H Albumin Urine Protein Urine Blood Urine Urobilinogen Ur Leukocyte Esterase - Consults dr. momin Time consulted: 05:23 - accepted pt on behalf of dr monte Reason for consultation: 10/30/19 05:24 chf exacerbation Consulted provider: will see as inpatient Critical Care Note - Critical Care Note Total time excluding time spent on procedures (mins): 30 Discharge - Discharge Clinical Impression: CHF (congestive heart failure) Qualifiers: Heart failure type: unspecified Heart failure chronicity: unspecified Qualified Code(s): I50.9 - Heart failure, unspecified Condition: Good Disposition: ADMITTED INPATIENT Admitting Provider: Jacinta Unit Admitted: IMCU Referrals: VU MONTE MD [Primary Care Provider] - Follow up as needed I personally performed the services described in the documentation, reviewed and edited the documentation which was dictated to the scribe in my presence, and it accurately records my words and actions.
--- NOTE | 2019-10-30 03:48 | RADIOLOGY REPORT (SQ) ---
Chest one view on 10/30/2019 3:21 AM CLINICAL INDICATION: Shortness of breath COMPARISON: 10/10/2019 FINDINGS: Multilead left subclavian AICD device is noted in place. Cardiomegaly is noted. There is elevation of the right hemidiaphragm. There is a right pleural effusion with adjacent right basilar atelectasis and/or pneumonia. This appears to have slightly worsened in the right lung base. Vascular calcification is noted in the aorta. The left lung is clear. IMPRESSION: Worsening opacification in the right lung base likely worsening right pleural effusion and adjacent right basilar atelectasis and/or pneumonia.
[2019-10-30] MEDS ORDERED: MORPHINE SULFATE 10 MG/ML INJ IV ONE (04:02)
[2019-10-30] MEDS ORDERED: DIPHENHYDRAMINE HCL 50 MG/ML VIAL IV ONE (04:03)
[2019-10-30 04:40] LABS: ALBUMIN 3.1 g/dL (3.5-5.0); ALKALINE PHOSPHATASE 152 U/L (38-126); ANION GAP 10 (5-19); ASPARTATE AMINO TRANSFERASE 22 U/L (14-36); BILIRUBIN,DIRECT 0.4 mg/dL (0.0-0.4); BILIRUBIN,TOTAL 0.8 mg/dL (0.2-1.3); BLOOD UREA NITROGEN 31 mg/dL (7-20); CALCIUM 8.4 mg/dL (8.4-10.2); CARBON DIOXIDE 23 mmol/L (22-30); CHLORIDE 107 mmol/L (98-107); GLUCOSE 96 mg/dL (75-110); POTASSIUM 3.1 mmol/L (3.6-5.0); TOTAL PROTEIN 6.3 g/dL (6.3-8.2)
[2019-10-30] MEDS ORDERED: POTASSIUM CHLORIDE 20 MEQ PACKET PO ONE (06:53)
[2019-10-30] MEDS: FUROSEMIDE INJ/PF 40 MG/4 ML SDV IV SCH ×3 (12:00→23:08)
[2019-10-30 12:03] LABS: CREATINE KINASE MB 3.05 ng/mL (<4.55); TROPONIN I 0.046 ng/mL
--- NOTE | 2019-10-30 12:33 | PDOC H&P ---
History of Present Illness Admission Date/PCP: 10/30/19 05:52 VU GUZMAN MD Patient complains of: Shortness of the breath History of Present Illness: BERONICA YEUNG is a 44 year old female This is a 44-year-old female patient of Dr. Guzman with a history of the chronic combined systolic and diastolic heart failure with the pulmonary hypertension's nephrotic syndromes currently see the [facility] cardiology with EF is only 20% came to the emergency department for the complaint of shortness of the breath. Patient's chest x-ray suggested worsening right-sided pleural effusion which patient have recently admitted for that underwent for thoracocentesis and 1 L of the fluid was removed I did not see any blood or analysis at that point. And had a 2D echo done recently with the demonstrate the moderate to severe reduced left ventricular function some estimate EF was 20%'s. Right ventricle's systolic function was also moderately reduced and there was severe pulmonary hypertension's His BNP was highly elevated patient is required a BiPAP in the emergency departments patient also have a combined pacemaker defibrillator device patient is obviously in acute congestive heart failure's start on IV Lasix When I saw the patient's patient is feeling better but still have a short of breath denied any chest pain Past Medical History Cardiac Medical History: Reports: Congestive Heart Failure - Chronic systolic and diastolic heart failure, Coronary Artery Disease, Myocardial Infarction - STENTS/DEFIBRILLATOR/PACEMAKER, Hypertension, Pulmonary Embolism Pulmonary Medical History: Reports: Chronic Obstructive Pulmonary Disease (COPD), Pneumonia Denies: Asthma, Bronchitis, Tuberculosis Neurological Medical History: Denies: Seizures Endocrine Medical History: Reports: Diabetes Mellitus Type 2 - non compliant (pt has snacks in her suitcase etc) GI Medical History: Reports: Gastroesophageal Reflux Disease Musculoskeltal Medical History: Denies: Arthritis Psychiatric Medical History: Reports: Depression Hematology: Reports: Anemia Past Surgical History Past Surgical History: Reports: Cardiac Catheterization - stent x1, Coronary Stent, Internal Defibrillator, Pacemaker - AICD, Other - Left-sided biventricular Medtronic defibrillator 02/26/2018, Lui Milner Denies: Hysterectomy Social History Information Source: Patient Smoking Status: Never Smoker Electronic Cigarette use?: No Frequency of Alcohol Use: None Hx Recreational Drug Use: No Drugs: None Hx Prescription Drug Abuse: No - Advance Directive Resuscitation Status: Full Code Family History Family History: Reviewed & Not Pertinent, Hypertension Parental Family History Reviewed: Yes Children Family History Reviewed: Yes Sibling(s) Family History Reviewed.: Yes Medication/Allergy Allergies/Adverse Reactions: hydrocodone bitartrate [From Vicodin] Allergy (Verified 07/27/18 11:36) Hives hydromorphone HCl [From Dilaudid] Allergy (Verified 05/16/19 14:28) Hives levofloxacin [From Levaquin] Allergy (Verified 07/27/18 11:36) Hives oxycodone HCl [From Percocet] Allergy (Verified 07/27/18 11:36) Hives Review of Systems Constitutional: PRESENT: weakness. ABSENT: chills, fever(s), headache(s), weight gain, weight loss Eyes: ABSENT: visual disturbances Ears: ABSENT: hearing changes Cardiovascular: PRESENT: dyspnea on exertion, edema. ABSENT: chest pain, orthropnea, palpitations Respiratory: ABSENT: cough, hemoptysis Gastrointestinal: ABSENT: abdominal pain, constipation, diarrhea, hematemesis, hematochezia, nausea, vomiting Genitourinary: ABSENT: dysuria, hematuria Musculoskeletal: ABSENT: joint swelling Integumentary: ABSENT: rash, wounds Neurological: ABSENT: abnormal gait, abnormal speech, confusion, dizziness, focal weakness, syncope Psychiatric: ABSENT: anxiety, depression, homidical ideation, suicidal ideation Endocrine: ABSENT: cold intolerance, heat intolerance, menstrual abnormalities, polydipsia, polyuria Hematologic/Lymphatic: ABSENT: easy bleeding, easy bruising, lymphadenopathy Physical Exam Vital Signs: Temp Pulse Resp BP Pulse Ox 97.9 F 86 33 H 129/81 H 97 10/30/19 08:08 10/30/19 08:08 10/30/19 08:40 10/30/19 08:08 10/30/19 08:40 Intake & Output 10/29/19 10/30/19 10/31/19 06:59 06:59 06:59 Output Total 600 Balance -600 Weight 109.048 kg 100.5 kg General appearance: PRESENT: no acute distress, well-developed, well-nourished Head exam: PRESENT: atraumatic, normocephalic Eye exam: PRESENT: conjunctiva pink, EOMI, PERRLA. ABSENT: scleral icterus Ear exam: PRESENT: normal external ear exam Mouth exam: PRESENT: moist, tongue midline Neck exam: PRESENT: full ROM. ABSENT: carotid bruit, JVD, lymphadenopathy, thyromegaly Respiratory exam: PRESENT: decreased breath sounds Cardiovascular exam: PRESENT: RRR. ABSENT: diastolic murmur, rubs, systolic murmur Pulses: PRESENT: normal dorsalis pedis pul, +2 pedal pulses bilateral Vascular exam: PRESENT: normal capillary refill GI/Abdominal exam: PRESENT: normal bowel sounds, soft. ABSENT: distended, guarding, mass, organolmegaly, rebound, tenderness Rectal exam: PRESENT: deferred Extremities exam: PRESENT: pedal edema Neurological exam: PRESENT: alert, awake, oriented to person, oriented to place, oriented to time, oriented to situation, CN II-XII grossly intact. ABSENT: motor sensory deficit Psychiatric exam: PRESENT: appropriate affect, normal mood. ABSENT: homicidal ideation, suicidal ideation Skin exam: PRESENT: dry, intact, warm. ABSENT: cyanosis, rash Results Laboratory Results: 10/30/19 02:44 10/30/19 03:48 10/30/19 10/30/19 10/30/19 02:44 02:44 03:13 WBC 5.1 RBC 4.34 Hgb 12.0 Hct 37.3 MCV 86 MCH 27.7 MCHC 32.2 RDW 20.0 H Plt Count 228 Seg Neutrophils % Not Reportable Sodium Cancelled Potassium Cancelled Chloride Cancelled Carbon Dioxide Cancelled Anion Gap Cancelled BUN Cancelled Creatinine Cancelled Est GFR ( Amer) Cancelled Est GFR (Non-Af Amer) Cancelled Glucose Cancelled Calcium Cancelled Total Bilirubin Cancelled AST Cancelled Alkaline Phosphatase Cancelled Total Protein Cancelled Albumin Cancelled Urine Color YELLOW Urine Appearance CLEAR Urine pH 7.0 Ur Specific [place] 1.009 Urine Protein 30 H Urine Glucose (UA) NEGATIVE Urine Ketones NEGATIVE Urine Blood SMALL H Urine Nitrite NEGATIVE Ur Leukocyte Esterase SMALL H Urine WBC (Auto) 4 Urine RBC (Auto) 4 10/30/19 03:48 WBC RBC Hgb Hct MCV MCH MCHC RDW Plt Count Seg Neutrophils % Sodium 140.1 Potassium 3.1 L Chloride 107 Carbon Dioxide 23 Anion Gap 10 BUN 31 H Creatinine 1.65 H Est GFR ( Amer) 41 L Est GFR (Non-Af Amer) Glucose 96 Calcium 8.4 Total Bilirubin 0.8 AST 22 Alkaline Phosphatase 152 H Total Protein 6.3 Albumin 3.1 L Urine Color Urine Appearance Urine pH Ur Specific [place] Urine Protein Urine Glucose (UA) Urine Ketones Urine Blood Urine Nitrite Ur Leukocyte Esterase Urine WBC (Auto) Urine RBC (Auto) 10/30/19 10/30/19 10/30/19 02:44 03:48 03:48 Creatine Kinase CK-MB (CK-2) Troponin I Cancelled 0.053 NT-Pro-B Natriuret Pep 58076 H 10/30/19 10/30/19 10/30/19 03:48 03:48 11:09 Creatine Kinase 175 H 137 H CK-MB (CK-2) 2.65 Troponin I Cancelled NT-Pro-B Natriuret Pep 10/30/19 11:09 Creatine Kinase CK-MB (CK-2) 3.05 Troponin I 0.046 NT-Pro-B Natriuret Pep Impressions: Chest X-Ray 10/30/19 02:46 IMPRESSION: Worsening opacification in the right lung base likely worsening right pleural effusion and adjacent right basilar atelectasis and/or pneumonia. Assessment & Plan - Diagnosis (1) Acute combined systolic (congestive) and diastolic (congestive) heart failure Is this a current diagnosis for this admission?: Yes Plan: Start patient on IV Lasix Patient is looking for the local cardiology will consult the local cardiology for further evaluations (2) CKD (chronic kidney disease) stage 3, GFR 30-59 ml/min Is this a current diagnosis for this admission?: Yes Plan: Continues to monitor the patient's kidney functions (3) Cardiac defibrillator in situ Is this a current diagnosis for this admission?: Yes (4) Cardiorenal syndrome Qualifiers: Heart failure presence: with heart failure Is this a current diagnosis for this admission?: Yes Plan: We will continue to monitor the patient's kidney functions (5) Chronic pain syndrome Is this a current diagnosis for this admission?: Yes (6) Hypertension Qualifiers: Hypertension type: essential hypertension Is this a current diagnosis for this admission?: Yes (7) Nephrotic syndrome Is this a current diagnosis for this admission?: Yes (8) Pleural effusion Is this a current diagnosis for this admission?: Yes Plan: Recurrent pleural effusions probably patient's current thoracocentesis most likely coming from the heart failure this time will send for the pleural analysi s (9) Shortness of breath Is this a current diagnosis for this admission?: Yes Plan: The above conditions - Time Time Spent: 30 to 50 Minutes Medications reviewed and adjusted accordingly: Yes Anticipated discharge: Home Within: Other - Inpatient Certification Based on my medical assessment, after consideration of the patient's comorbidities, presenting symptoms, or acuity I expect that the services needed warrant INPATIENT care.: Yes I certify that my determination is in accordance with my understanding of Medicare's requirements for reasonable and necessary INPATIENT services [42 CFR 412.3e].: Yes Medical Necessity: Significant Comorbidiites Make Outpatient Treatment Too Risky, Need Close Monitoring Due to Risk of Patient Decompensation, Need For Continuous Telemetry Monitoring 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
[2019-10-30] MEDS: HEPARIN SOD (PORCINE) 5,000 UNIT/ML 1 ML VIAL SUBCUT SCH ×2 (14:28→23:08)
[2019-10-30] MEDS ORDERED: TRAMADOL HCL 50 MG TABLET PO PRN (18:29)
[2019-10-30] MEDS ORDERED: DIPHENHYDRAMINE HCL 25 MG CAPSULE PO PRN (18:30)
[2019-10-30 20:02] LABS: CREATINE KINASE MB 4.13 ng/mL (<4.55); TROPONIN I 0.039 ng/mL
--- NOTE | 2019-10-30 20:09 | PDOC PROGRESS REPORT ---
Subjective Progress Note for:: 10/30/19 Subjective:: Patient with severe dilated cardiomyopathy, chronic CHF and multiple other comorbid condition, who was admitted with progressive shortness of breath. Patient claims that she is being followed by clerical and office support workers at [facility]. Patient also describes significant total body discomfort and seems to be asking for pain medications. Patient however on questioning denied any chest pain. Patient looks quite a bit debilitated. Reason For Visit: HEART FAILURE Physical Exam Vital Signs: Temp Pulse Resp BP Pulse Ox 98.1 F 86 26 H 134/81 H 95 10/30/19 17:04 10/30/19 17:04 10/30/19 18:41 10/30/19 17:04 10/30/19 17:04 Intake & Output 10/29/19 10/30/19 10/31/19 06:59 06:59 06:59 Intake Total 460 Output Total 1525 Balance -1065 Weight 109.048 kg 100.5 kg Exam: GENERAL: well-nourished and in no acute distress. Alert and oriented x3, patient noted to be in some generalized discomfort. HEAD: Atraumatic, normocephalic. EYES: JACKY, sclera anicteric, conjunctiva are normal. ENT: Moist mucous membranes. No oral ulcerations or bleeding gums noted. No obvious ear, nose or throat abnormalities noted. NECK: supple without lymphadenopathy. Trachea is central. No cervical or axillary lymphadenopathy noted. Carotids are 2+, JVD 14 cm LUNGS: Bibasilar fine crackles and few wheezes rales or rhonchi noted. Right basal dullness and diminished right basilar breath sounds noted.. CHEST: Palpation of the chest wall shows no significant chest wall tenderness. 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 ABDOMEN: Soft, no significant tenderness appreciated, normoactive bowel sounds. No guarding, no rebound. No rigidity noted . No masses appreciated. EXTREMITIES: Pedal pulses are 1-2+, no calf tenderness noted. No clubbing or cyanosis. 2+ pedal edema noted NEUROLOGICAL: Focused neurological exam showed no significant neurologic def icit. Normal speech, no focal weakness appreciated. PSYCH: Normal mood, normal affect. Judgment and insight within normal limits. SKIN: No significant ecchymosis, skin is noted to be warm. MUSCULOSKELETAL EXAM: No significant acute joint swelling noted. Results Laboratory Results: 10/30/19 02:44 10/30/19 03:48 10/30/19 10/30/19 10/30/19 02:44 02:44 03:13 WBC 5.1 RBC 4.34 Hgb 12.0 Hct 37.3 MCV 86 MCH 27.7 MCHC 32.2 RDW 20.0 H Plt Count 228 Seg Neutrophils % Not Reportable Sodium Cancelled Potassium Cancelled Chloride Cancelled Carbon Dioxide Cancelled Anion Gap Cancelled BUN Cancelled Creatinine Cancelled Est GFR ( Amer) Cancelled Est GFR (Non-Af Amer) Cancelled Glucose Cancelled Calcium Cancelled Total Bilirubin Cancelled AST Cancelled Alkaline Phosphatase Cancelled Total Protein Cancelled Albumin Cancelled Urine Color YELLOW Urine Appearance CLEAR Urine pH 7.0 Ur Specific [place] 1.009 Urine Protein 30 H Urine Glucose (UA) NEGATIVE Urine Ketones NEGATIVE Urine Blood SMALL H Urine Nitrite NEGATIVE Ur Leukocyte Esterase SMALL H Urine WBC (Auto) 4 Urine RBC (Auto) 4 10/30/19 03:48 WBC RBC Hgb Hct MCV MCH MCHC RDW Plt Count Seg Neutrophils % Sodium 140.1 Potassium 3.1 L Chloride 107 Carbon Dioxide 23 Anion Gap 10 BUN 31 H Creatinine 1.65 H Est GFR ( Amer) 41 L Est GFR (Non-Af Amer) Glucose 96 Calcium 8.4 Total Bilirubin 0.8 AST 22 Alkaline Phosphatase 152 H Total Protein 6.3 Albumin 3.1 L Urine Color Urine Appearance Urine pH Ur Specific [place]ctor Urine Protein Urine Glucose (UA) Urine Ketones Urine Blood Urine Nitrite Ur Leukocyte Esterase Urine WBC (Auto) Urine RBC (Auto) 10/30/19 10/30/19 10/30/19 02:44 03:48 03:48 Creatine Kinase CK-MB (CK-2) Troponin I Cancelled 0.053 NT-Pro-B Natriuret Pep 00951 H 10/30/19 10/30/19 10/30/19 03:48 03:48 11:09 Creatine Kinase 175 H 137 H CK-MB (CK-2) 2.65 Troponin I Cancelled NT-Pro-B Natriuret Pep 10/30/19 10/30/19 11:09 19:16 Creatine Kinase 159 H CK-MB (CK-2) 3.05 Troponin I 0.046 NT-Pro-B Natriuret Pep EKG Comments: Sinus rhythm with fusion paced beats. Impressions: Chest X-Ray 10/30/19 02:46 IMPRESSION: Worsening opacification in the right lung base likely worsening right pleural effusion and adjacent right basilar atelectasis and/or pneumonia. Assessment & Plan - Diagnosis (1) CHF (congestive heart failure) Qualifiers: Heart failure type: combined systolic and diastolic Heart failure chronicity: unspecified Qualified Code(s): I50.40 - Unspecified combined systolic (congestive) and diastolic (congestive) heart failure Is this a current diagnosis for this admission?: Yes (2) Acute combined systolic (congestive) and diastolic (congestive) heart failure Is this a current diagnosis for this admission?: Yes (3) Bilateral lower extremity edema Is this a current diagnosis for this admission?: Yes (4) Cardiomyopathy Qualifiers: Cardiomyopathy type: unspecified Qualified Code(s): I42.9 - Cardiomyopathy, unspecified Is this a current diagnosis for this admission?: Yes (5) Chronic kidney disease Qualifiers: Chronic kidney disease stage: stage 3 (moderate) Qualified Code(s): N18.3 - Chronic kidney disease, stage 3 (moderate) (6) Chronic pain syndrome Is this a current diagnosis for this admission?: Yes - Notes Notes: Patient known to me from previous consultation. Patient now currently tells me that she is being followed by clerical and office support workers from [facility]. Patient has severe dilated cardiomyopathy with severely depressed LVEF as well as mitral regurgitation. Have ordered a repeat echocardiogram to evaluate mitral regurgitation. Patient would benefit from ARNI agents, carvedilol, digoxin, hydralazine nitrate combination. Recommend try to obtain heart catheterization report. Continue diuretics. Patient will also benefit from improving general physical fitness. Patient home medications reviewed. She was actually on a good regimen. This would need to be restarted. Prognosis is guarded at this point. - Time Time with patient: Greater than 35 minutes Medications reviewed and adjusted accordingly: Yes
--- NOTE | 2019-10-31 00:15 | EKG REPORT ---
SEVERITY:- ABNORMAL ECG - ATRIAL-SENSED VENTRICULAR-PACED RHYTHM : Confirmed by: Megan Dozier 31-Oct-2019 00:14:51
--- NOTE | 2019-10-31 00:16 | EKG REPORT ---
SEVERITY:- ABNORMAL ECG - AFIB/FLUT AND V-PACED COMPLEXES NONSPECIFIC IVCD WITH LAD : Confirmed by: eMgan Dozier 31-Oct-2019 00:15:09
[2019-10-31] MEDS: FUROSEMIDE INJ/PF 40 MG/4 ML SDV IV SCH ×3 (05:34→17:38)
[2019-10-31] MEDS: HEPARIN SOD (PORCINE) 5,000 UNIT/ML 1 ML VIAL SUBCUT SCH ×3 (05:35→22:14)
[2019-10-31 07:09] LABS: ABSOLUTE EOSINOPHILS # (AUTO) 0.1 10^3/uL (0.0-0.6); ABSOLUTE LYMPHOCYTES (AUTO) 0.5 10^3/uL (0.5-4.7); ABSOLUTE MONOCYTES (AUTO) 0.4 10^3/uL (0.1-1.4); BASOPHILS % (AUTO) 0.9 % (0-2); EOSINOPHILS % (AUTO) 3.4 % (0-6); HEMATOCRIT 35.9 % (36.0-47.0); HEMOGLOBIN 11.6 g/dL (12.0-15.5); LYMPHOCYTES % (AUTO) 12.5 % (13-45); MEAN CORPUSCULAR HEMOGLOBIN 27.8 pg (27.0-33.4); MEAN CORPUSCULAR HGB CONC 32.4 g/dL (32.0-36.0); MEAN CORPUSCULAR VOLUME 86 fl (80-97); MONOCYTES % (AUTO) 8.9 % (3-13); PLATELET COUNT 251 10^3/uL (150-450); RED BLOOD COUNT 4.19 10^6/uL (3.72-5.28); RED CELL DISTRIBUTION WIDTH 19.6 % (11.5-14.0); SEGMENTED NEUTROPHILS % (AUTO) 74.3 % (42-78); TOTAL CELLS COUNTED % (AUTO) 100 %; WHITE BLOOD COUNT 4.1 10^3/uL (4.0-10.5)
[2019-10-31] MEDS ORDERED: FUROSEMIDE 80 MG TABLET PO SCH (18:45)
--- NOTE | 2019-10-31 19:23 | XCELERA REPORT ---
[address] [address] Transthoracic Echocardiogram Report Name: BERONICA YEUNG Age: 44 yrs Gender: Female : 1975 Patient Status: Inpatient Patient Location: [address] [place], [place] [address] Study Date: 10/31/2019 04:03 PM Height: 68 in Weight: 221 lb BSA: 2.1 m2 Procedure: A complete two-dimensional transthoracic echocardiogram was performed (2D, M-mode, spectral and color flow Doppler). The study was technically adequate with some images being suboptimal in quality. Reason For Study: Mitral regurgitation and LVEF Ordering Physician: MEGAN GREENBERG Performed By: Yesenia Manzano Interpretation Summary LV EF is 20% Left ventricular systolic function is severely reduced. LV diastolic function could not be adequately assessed due to significant valve regurgitation and/or stenosis. There is severe global hypokinesis of the left ventricle. The left ventricle is mildly to moderately dilated. There is mild concentric left ventricular hypertrophy. The right ventricle is mild to moderately dilated. The right ventricular systolic function is mild to moderately reduced. The right atrium is mildly dilated. The left atrium is severely dilated. There is a moderate amount of mitral regurgitation No aortic regurgitation is present. There is no aortic valve stenosis There is a mild amount of tricuspid regurgitation There is moderate to severe pulmonary hypertension by echo Best estimated RVSP is approximately 60-65 mm/Hg. The aortic root is not well visualized but is probably normal size. The inferior vena cava appeared normal and decreased < 50% with respiration (RAP 10-15 mmHg) Minimal pericardial effusion. Moderate size right pleural effusion. MMode/2D Measurements & Calculations RVDd: 3.9 cm LVIDd: 6.6 cm FS: 10.5 % Ao root diam: 2.6 cm IVSd: 0.93 cm LVIDs: 5.9 cm EDV(Teich): 224.8 ml Ao root area: 5.3 cm2 LVPWd: 0.90 cm ESV(Teich): 174.6 ml EF(Teich): 22.3 % Doppler Measurements & Calculations MR max summer: 578.2 cm/sec TR max summer: 327.9 cm/sec MR max P.7 mmHg TR max P.2 mmHg Left Ventricle The left ventricle is mildly to moderately dilated. There is mild concentric left ventricular hypertrophy. Left ventricular systolic function is severely reduced. LV EF is 20%. LV diastolic function could not be adequately assessed due to significant valve regurgitation and/or stenosis. There is severe global hypokinesis of the left ventricle. Right Ventricle The right ventricle is mild to moderately dilated. There is normal right ventricular wall thickness. The right ventricular systolic function is mild to moderately reduced. Atria The right atrium is mildly dilated. The left atrium is severely dilated. Interarterial septum not well visualized and not well dopplered. Cannot comment on ASD/PFO presence. Mitral Valve The mitral valve leaflets are sclerotic, but show no functional abnormalities. There is no mitral valve stenosis. There is a moderate amount of mitral regurgitation. Aortic Valve The aortic valve is grossly normal. There is no aortic valve stenosis. No aortic regurgitation is present. Tricuspid Valve The tricuspid valve is not well visualized, but is grossly normal. There is no tricuspid stenosis. There is a mild amount of tricuspid regurgitation. There is moderate to severe pulmonary hypertension by echo. Best estimated RVSP is approximately 60-65 mm/Hg. Pulmonic Valve The pulmonic valve is not well visualized. Great Vessels The aortic root is not well visualized but is probably normal size. The inferior vena cava appeared normal and decreased < 50% with respiration (RAP 10-15 mmHg). Effusions Minimal pericardial effusion. Moderate size right pleural effusion. : MEGAN GREENBERG Shyamal
[2019-10-31] MEDS ORDERED: BUMETANIDE 1 MG TABLET PO SCH (19:30)
[2019-10-31 20:26] LABS: HEMATOCRIT 38.5 % (36.0-47.0); HEMOGLOBIN 12.2 g/dL (12.0-15.5); MEAN CORPUSCULAR HEMOGLOBIN 27.4 pg (27.0-33.4); MEAN CORPUSCULAR HGB CONC 31.7 g/dL (32.0-36.0); MEAN CORPUSCULAR VOLUME 86 fl (80-97); PLATELET COUNT 254 10^3/uL (150-450); RED BLOOD COUNT 4.46 10^6/uL (3.72-5.28); RED CELL DISTRIBUTION WIDTH 19.6 % (11.5-14.0); WHITE BLOOD COUNT 5.1 10^3/uL (4.0-10.5)
[2019-10-31 20:41] LABS: INTERNATIONAL RATION (INR) 1.17
[2019-10-31] MEDS ORDERED: (PENDING PHARMACY ID) (Zolpidem Tartrate [Ambien] 10 MG) PO SCH (22:00)
[2019-10-31] MEDS: SACUBITRIL/VALSARTAN 97 MG/103 MG TABLET PO SCH (22:12)
[2019-10-31] MEDS: PANTOPRAZOLE SODIUM 40 MG TABLET.DR PO SCH (22:12)
[2019-10-31] MEDS: CALCITRIOL 0.25 MCG CAPSULE PO SCH (22:12)
[2019-10-31] MEDS: CARVEDILOL 3.125 MG TABLET PO SCH (22:13)
[2019-10-31] MEDS: ISOSORBIDE DINITRATE 20 MG TABLET PO SCH (22:13)
[2019-10-31] MEDS: WARFARIN SODIUM 5 MG TABLET PO SCH (22:13)
[2019-10-31] MEDS: ZOLPIDEM TARTRATE 5 MG TABLET PO SCH (22:13)
[2019-10-31] MEDS: LUBIPROSTONE 24 MCG CAPSULE PO SCH (22:13)
[2019-10-31] MEDS: ATORVASTATIN CALCIUM 80 MG TABLET PO SCH (22:14)
[2019-10-31] MEDS: TRAMADOL HCL 50 MG TABLET PO PRN (22:15)
[2019-10-31] MEDS: DIPHENHYDRAMINE HCL 25 MG CAPSULE PO PRN (22:16)
--- NOTE | 2019-10-31 22:48 | PDOC PROGRESS REPORT ---
Subjective Progress Note for:: 10/31/19 Subjective:: Patient is readmitted again, history of chronic systolic congestive heart failure, She has multiple comorbid conditions Reason For Visit: HEART FAILURE Physical Exam Vital Signs: Temp Pulse Resp BP Pulse Ox 98.4 F 85 24 H 129/97 H 98 10/31/19 20:19 10/31/19 20:19 10/31/19 20:19 10/31/19 20:19 10/31/19 20:19 Intake & Output 10/30/19 10/31/19 11/01/19 06:59 06:59 06:59 Intake Total 838 480 Output Total 2210 1150 Balance -1372 -670 Weight 109.048 kg 97.9 kg General appearance: PRESENT: mild distress Eye exam: PRESENT: PERRLA Respiratory exam: PRESENT: crackles Cardiovascular exam: PRESENT: +S1, +S2 GI/Abdominal exam: PRESENT: soft Neurological exam: PRESENT: alert Results Laboratory Results: 10/31/19 20:19 10/30/19 03:48 10/31/19 10/31/19 06:32 20:19 WBC 4.1 5.1 RBC 4.19 4.46 Hgb 11.6 L 12.2 Hct 35.9 L 38.5 MCV 86 86 MCH 27.8 27.4 MCHC 32.4 31.7 L RDW 19.6 H 19.6 H Plt Count 251 254 Seg Neutrophils % 74.3 10/30/19 10/30/19 10/30/19 02:44 03:48 03:48 Creatine Kinase CK-MB (CK-2) Troponin I Cancelled 0.053 NT-Pro-B Natriuret Pep 38572 H 10/30/19 10/30/19 10/30/19 03:48 03:48 11:09 Creatine Kinase 175 H 137 H CK-MB (CK-2) 2.65 Troponin I Cancelled NT-Pro-B Natriuret Pep 10/30/19 10/30/19 10/30/19 11:09 19:16 19:16 Creatine Kinase 159 H CK-MB (CK-2) 3.05 4.13 Troponin I 0.046 0.039 NT-Pro-B Natriuret Pep Impressions: Chest X-Ray 10/30/19 02:46 IMPRESSION: Worsening opacification in the right lung base likely worsening right pleural effusion and adjacent right basilar atelectasis and/or pneumonia. Assessment & Plan - Diagnosis (1) Acute combined systolic (congestive) and diastolic (congestive) heart failure Is this a current diagnosis for this admission?: Yes Plan: Continue present treatment (2) CKD (chronic kidney disease) stage 3, GFR 30-59 ml/min Is this a current diagnosis for this admission?: Yes (3) Cardiac defibrillator in situ Is this a current diagnosis for this admission?: Yes - Time Time Spent with patient: 25-34 minutes
[2019-11-01] MEDS: FUROSEMIDE INJ/PF 40 MG/4 ML SDV IV SCH ×4 (00:54→17:44)
[2019-11-01] MEDS: HEPARIN SOD (PORCINE) 5,000 UNIT/ML 1 ML VIAL SUBCUT SCH ×3 (05:28→21:12)
[2019-11-01] MEDS: ISOSORBIDE DINITRATE 20 MG TABLET PO SCH ×3 (05:33→22:49)
[2019-11-01 06:33] LABS: ABSOLUTE EOSINOPHILS # (AUTO) 0.2 10^3/uL (0.0-0.6); ABSOLUTE LYMPHOCYTES (AUTO) 0.6 10^3/uL (0.5-4.7); ABSOLUTE MONOCYTES (AUTO) 0.3 10^3/uL (0.1-1.4); ABSOLUTE NEUT (AUTO) 2.8 10^3/uL (1.7-8.2); BASOPHILS % (AUTO) 0.8 % (0-2); EOSINOPHILS % (AUTO) 5.5 % (0-6); HEMATOCRIT 33.7 % (36.0-47.0); HEMOGLOBIN 11.1 g/dL (12.0-15.5); LYMPHOCYTES % (AUTO) 14.2 % (13-45); MEAN CORPUSCULAR VOLUME 85 fl (80-97); MONOCYTES % (AUTO) 8.4 % (3-13); PLATELET COUNT 225 10^3/uL (150-450); RED BLOOD COUNT 3.97 10^6/uL (3.72-5.28); RED CELL DISTRIBUTION WIDTH 19.5 % (11.5-14.0); SEGMENTED NEUTROPHILS % (AUTO) 71.1 % (42-78); TOTAL CELLS COUNTED % (AUTO) 100 %
[2019-11-01 06:41] LABS: PROTHROMBIN TIME 15.2 SEC (11.4-15.4)
[2019-11-01 06:59] LABS: ANION GAP 8 (5-19); BLOOD UREA NITROGEN 31 mg/dL (7-20); CALCIUM 8.3 mg/dL (8.4-10.2); CARBON DIOXIDE 23 mmol/L (22-30); CHLORIDE 109 mmol/L (98-107); GLUCOSE 84 mg/dL (75-110); POTASSIUM 3.6 mmol/L (3.6-5.0)
[2019-11-01] MEDS: CARVEDILOL 3.125 MG TABLET PO SCH (09:58)
[2019-11-01] MEDS: SPIRONOLACTONE 25 MG TABLET PO SCH (09:58)
[2019-11-01] MEDS: PANTOPRAZOLE SODIUM 40 MG TABLET.DR PO SCH (09:58)
[2019-11-01] MEDS: CHOLECALCIFEROL (D3) 400 UNIT TABLET PO SCH (09:58)
[2019-11-01] MEDS: CALCITRIOL 0.25 MCG CAPSULE PO SCH (09:58)
[2019-11-01] MEDS: SACUBITRIL/VALSARTAN 97 MG/103 MG TABLET PO SCH ×2 (09:58→22:52)
[2019-11-01] MEDS: FERROUS SULFATE 325 MG TABLET PO SCH (09:58)
[2019-11-01] MEDS: ALLOPURINOL 100 MG TABLET PO SCH (09:58)
[2019-11-01] MEDS: DIGOXIN 0.125 MG TABLET PO SCH (09:59)
--- NOTE | 2019-11-01 09:59 | PDOC PROGRESS REPORT ---
Subjective Progress Note for:: 10/31/19 Subjective:: Patient claims she is feeling better. She was sitting by the side of bed dangling her feet. 2D echo results were reviewed with the patient. Patient with severe dilated cardiomyopathy, chronic CHF and multiple other comorbid condition, who was admitted with progressive shortness of breath. Patient claims that she is being followed by director of physical security at [facility]. Patient also describes significant total body discomfort and seems to be asking for pain medications. Patient however on questioning denied any chest pain. Patient looks quite a bit debilitated. Reason For Visit: HEART FAILURE Physical Exam Vital Signs: Temp Pulse Resp BP Pulse Ox 98.2 F 85 18 126/95 H 97 10/31/19 15:59 10/31/19 15:59 10/31/19 15:59 10/31/19 15:59 10/31/19 15:59 Intake & Output 10/30/19 10/31/19 11/01/19 06:59 06:59 06:59 Intake Total 838 120 Output Total 2210 400 Balance -1372 -280 Weight 109.048 kg 97.9 kg Exam: GENERAL: well-nourished and in no acute distress. Alert and oriented x3 HEAD: Atraumatic, normocephalic. EYES: JACKY, sclera anicteric, conjunctiva are normal. ENT: Moist mucous membranes. No oral ulcerations or bleeding gums noted. No obvious ear, nose or throat abnormalities noted. NECK: supple without lymphadenopathy. Trachea is central. No cervical or axillary lymphadenopathy noted. Carotids are 2+, JVD mildly distended at around 10 cm LUNGS: Diminished breath sounds and dullness noted right base dullness noted on percussion. Left side seems clear. CHEST: Palpation of the chest wall shows no significant chest wall tenderness. 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 ABDOMEN: Soft, no significant tenderness appreciated, normoactive bowel sounds. No guarding, no rebound. No rigidity noted . No masses appreciated. EXTREMITIES: Pedal pulses are 1-2+, no calf tenderness noted. No clubbing or cyanosis. 1-2+ pedal edema noted NEUROLOGICAL: Focused neurological exam showed no significant neurologic defici t. Normal speech, no focal weakness appreciated. PSYCH: Normal mood, normal affect. Judgment and insight within normal limits. SKIN: No significant ecchymosis, skin is noted to be warm. MUSCULOSKELETAL EXAM: No significant acute joint swelling noted. Results Laboratory Results: 10/31/19 06:32 10/30/19 03:48 10/31/19 06:32 WBC 4.1 RBC 4.19 Hgb 11.6 L Hct 35.9 L MCV 86 MCH 27.8 MCHC 32.4 RDW 19.6 H Plt Count 251 Seg Neutrophils % 74.3 10/30/19 10/30/19 10/30/19 02:44 03:48 03:48 Creatine Kinase CK-MB (CK-2) Troponin I Cancelled 0.053 NT-Pro-B Natriuret Pep 66368 H 10/30/19 10/30/19 10/30/19 03:48 03:48 11:09 Creatine Kinase 175 H 137 H CK-MB (CK-2) 2.65 Troponin I Cancelled NT-Pro-B Natriuret Pep 10/30/19 10/30/19 10/30/19 11:09 19:16 19:16 Creatine Kinase 159 H CK-MB (CK-2) 3.05 4.13 Troponin I 0.046 0.039 NT-Pro-B Natriuret Pep Impressions: Chest X-Ray 10/30/19 02:46 IMPRESSION: Worsening opacification in the right lung base likely worsening right pleural effusion and adjacent right basilar atelectasis and/or pneumonia. Assessment & Plan - Diagnosis (1) CHF (congestive heart failure) Qualifiers: Heart failure type: combined systolic and diastolic Heart failure chronicity: unspecified Qualified Code(s): I50.40 - Unspecified combined systolic (congestive) and diastolic (congestive) heart failure Is this a current diagnosis for this admission?: Yes (2) Acute combined systolic (congestive) and diastolic (congestive) heart failure Is this a current diagnosis for this admission?: Yes (3) Bilateral lower extremity edema Is this a current diagnosis for this admission?: Yes (4) Cardiomyopathy Qualifiers: Cardiomyopathy type: unspecified Qualified Code(s): I42.9 - Cardiomyopathy, unspecified Is this a current diagnosis for this admission?: Yes (5) Chronic kidney disease Qualifiers: Chronic kidney disease stage: stage 3 (moderate) Qualified Code(s): N18.3 - Chronic kidney disease, stage 3 (moderate) (6) Chronic pain syndrome Is this a current diagnosis for this admission?: Yes - Notes Notes: Patient has severe dilated cardiomyopathy with severely depressed LVEF as well as mitral regurgitation. 2D echocardiogram confirmed severely depressed LVEF with moderate mitral regurgitation and pulmonary hypertension. Have optimized medical management. In this regard added hydralazine nitrate combination, digoxin and spironolactone. Patient to continue with ARNI agents Continue diuretics. Patient will also benefit from improving general physical fitness. Overall prognosis guarded. May benefit from follow-up in the CHF clinic such as at [facility], where she is already established with. Patient would benefit from aggressive DVT prophylaxis. - Time Time with patient: Greater than 35 minutes - More than 50% of the time spent coordinating care, discussing management plans with involved caregivers. Manag ement plans discussed with involved personnels. Medical decision making was of moderate to high complexity, patient's has multiple comorbidities. Medications reviewed and adjusted accordingly: Yes - Multiple medication changes performed
[2019-11-01] MEDS: LUBIPROSTONE 24 MCG CAPSULE PO SCH ×2 (10:00→22:48)
[2019-11-01] MEDS ORDERED: SIMETHICONE 80 MG TAB.CHEW PO PRN (18:45)
--- NOTE | 2019-11-01 20:19 | PDOC PROGRESS REPORT ---
Subjective Progress Note for:: 11/01/19 Subjective:: Patient claims she is feeling better. She was sitting by the side of bed dangling her feet. 2D echo results were reviewed with the patient. It showed severely depressed LVEF. Moderate mitral regurgitation was noted. Patient also noted to have pulmonary hypertension. This is mostly secondary to chronic left heart failure. Patient with severe dilated cardiomyopathy, chronic CHF and multiple other comorbid condition, who was admitted with progressive shortness of breath. Patient claims that she is being followed by [facility] at [facility]. Reason For Visit: HEART FAILURE Physical Exam Vital Signs: Temp Pulse Resp BP Pulse Ox 98.6 F 86 20 102/70 98 11/01/19 19:44 11/01/19 19:44 11/01/19 19:44 11/01/19 19:44 11/01/19 19:44 Intake & Output 10/31/19 11/01/19 11/02/19 06:59 06:59 06:59 Intake Total 838 941 460 Output Total 2210 2325 1575 Balance -1372 -1384 -1115 Weight 97.9 kg 96.6 kg Exam: GENERAL: well-nourished and in no acute distress. Alert and oriented x3 HEAD: Atraumatic, normocephalic. EYES: JACKY, sclera anicteric, conjunctiva are normal. ENT: Moist mucous membranes. No oral ulcerations or bleeding gums noted. No obvious ear, nose or throat abnormalities noted. NECK: supple without lymphadenopathy. Trachea is central. No cervical or axillary lymphadenopathy noted. Carotids are 2+, JVD WNL LUNGS: Breath sounds clear bilaterally. No wheezes rales or rhonchi noted. No significant dullness noted on percussion. CHEST: Palpation of the chest wall shows no significant chest wall tenderness. 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 ABDOMEN: Soft, no significant tenderness appreciated, normoactive bowel sounds. No guarding, no rebound. No rigidity noted . No masses appreciated. EXTREMITIES: Pedal pulses are 1-2+, no calf tenderness noted. No clubbing or cyanosis. 1+ pedal edema noted NEUROLOGICAL: Focused neurological exam showed no significant neurologic deficit. Normal speech, no focal weakness appreciated. PSYCH: Normal mood, normal affect. Judgment and insight within normal limits. SKIN: No significant ecchymosis, skin is noted to be warm. MUSCULOSKELETAL EXAM: No significant acute joint swelling noted. Results Laboratory Results: 11/01/19 06:08 11/01/19 06:08 10/31/19 11/01/19 11/01/19 20:19 06:08 06:08 WBC 5.1 4.0 RBC 4.46 3.97 Hgb 12.2 11.1 L Hct 38.5 33.7 L MCV 86 85 MCH 27.4 28.0 MCHC 31.7 L 33.0 RDW 19.6 H 19.5 H Plt Count 254 225 Seg Neutrophils % 71.1 Sodium 139.7 Potassium 3.6 Chloride 109 H Carbon Dioxide 23 Anion Gap 8 BUN 31 H Creatinine 1.52 H Est GFR ( Amer) 45 L Glucose 84 Calcium 8.3 L 10/30/19 10/30/19 10/30/19 02:44 03:48 03:48 Creatine Kinase CK-MB (CK-2) Troponin I Cancelled 0.053 NT-Pro-B Natriuret Pep 08472 H 10/30/19 10/30/19 10/30/19 03:48 03:48 11:09 Creatine Kinase 175 H 137 H CK-MB (CK-2) 2.65 Troponin I Cancelled NT-Pro-B Natriuret Pep 10/30/19 10/30/19 10/30/19 11:09 19:16 19:16 Creatine Kinase 159 H CK-MB (CK-2) 3.05 4.13 Troponin I 0.046 0.039 NT-Pro-B Natriuret Pep 11/01/19 06:08 Creatine Kinase CK-MB (CK-2) Troponin I NT-Pro-B Natriuret Pep 34040 H EKG Comments: Sinus rhythm without any sustained tachycardia or bradycardia Impressions: Chest X-Ray 10/30/19 02:46 IMPRESSION: Worsening opacification in the right lung base likely worsening right pleural effusion and adjacent right basilar atelectasis and/or pneumonia. Assessment & Plan - Diagnosis (1) CHF (congestive heart failure) Qualifiers: Heart failure type: combined systolic and diastolic Heart failure chronicity: unspecified Qualified Code(s): I50.40 - Unspecified combined sy stolic (congestive) and diastolic (congestive) heart failure Is this a current diagnosis for this admission?: Yes (2) Acute combined systolic (congestive) and diastolic (congestive) heart failure Is this a current diagnosis for this admission?: Yes (3) Bilateral lower extremity edema Is this a current diagnosis for this admission?: Yes (4) Cardiomyopathy Qualifiers: Cardiomyopathy type: unspecified Qualified Code(s): I42.9 - Cardiomyopathy, unspecified Is this a current diagnosis for this admission?: Yes (5) Chronic kidney disease Qualifiers: Chronic kidney disease stage: stage 3 (moderate) Qualified Code(s): N18.3 - Chronic kidney disease, stage 3 (moderate) (6) Chronic pain syndrome Is this a current diagnosis for this admission?: Yes - Notes Notes: Patient has severe dilated cardiomyopathy with severely depressed LVEF as well as mitral regurgitation. 2D echocardiogram confirmed severely depressed LVEF with moderate mitral regurgitation and pulmonary hypertension. Have optimized medical management. In this regard added hydralazine nitrate combination, digoxin and spironolactone. Patient to continue with ARNI agents. Will gradually increase hydralazine nitrate combination. Continue diuretics. Patient will also benefit from improving general physical fitness. Overall prognosis guarded. May benefit from follow-up in the CHF clinic such as at [facility], where she is already established with on discharge. Patient claims benefit from PAP therapy while in the hospital. It may be worthwhile then to consider a sleep study as an outpatient.. Patient would benefit from aggressive DVT prophylaxis. - Time Time with patient: Greater than 35 minutes - More than 50% of the time spent coordinating care, discussing management plans with involved caregivers. Management plans discussed with involved personnels. Medical decision making was of moderate to high complexity, patient's has multiple comorbidities. Medications reviewed and adjusted accordingly: Yes
[2019-11-01] MEDS: WARFARIN SODIUM 5 MG TABLET PO SCH (21:12)
[2019-11-01] MEDS: ATORVASTATIN CALCIUM 80 MG TABLET PO SCH (21:12)
[2019-11-01] MEDS: ZOLPIDEM TARTRATE 5 MG TABLET PO SCH (21:13)
[2019-11-01] MEDS: CARVEDILOL 6.25 MG TABLET PO SCH (21:13)
[2019-11-01] MEDS: TRAMADOL HCL 50 MG TABLET PO PRN (21:15)
[2019-11-01] MEDS: DIPHENHYDRAMINE HCL 25 MG CAPSULE PO PRN (21:16)
--- NOTE | 2019-11-01 23:13 | PDOC PROGRESS REPORT ---
Subjective Progress Note for:: 11/01/19 Subjective:: Patient seen by the bedside,She is improving Reason For Visit: HEART FAILURE Physical Exam Vital Signs: Temp Pulse Resp BP Pulse Ox 98.6 F 86 20 102/70 98 11/01/19 19:44 11/01/19 19:44 11/01/19 19:44 11/01/19 19:44 11/01/19 19:44 Intake & Output 10/31/19 11/01/19 11/02/19 06:59 06:59 06:59 Intake Total 838 941 460 Output Total 2210 2735 1575 Balance -1712 -3186 -1114 Weight 97.9 kg 96.6 kg General appearance: PRESENT: no acute distress Eye exam: PRESENT: PERRLA Respiratory exam: PRESENT: rhonchi Cardiovascular exam: PRESENT: +S1, +S2 GI/Abdominal exam: PRESENT: soft Neurological exam: PRESENT: alert Results Laboratory Results: 11/01/19 06:08 11/01/19 06:08 11/01/19 11/01/19 06:08 06:08 WBC 4.0 RBC 3.97 Hgb 11.1 L Hct 33.7 L MCV 85 MCH 28.0 MCHC 33.0 RDW 19.5 H Plt Count 225 Seg Neutrophils % 71.1 Sodium 139.7 Potassium 3.6 Chloride 109 H Carbon Dioxide 23 Anion Gap 8 BUN 31 H Creatinine 1.52 H Est GFR ( Amer) 45 L Glucose 84 Calcium 8.3 L 10/30/19 10/30/19 10/30/19 02:44 03:48 03:48 Creatine Kinase CK-MB (CK-2) Troponin I Cancelled 0.053 NT-Pro-B Natriuret Pep 01000 H 10/30/19 10/30/19 10/30/19 03:48 03:48 11:09 Creatine Kinase 175 H 137 H CK-MB (CK-2) 2.65 Troponin I Cancelled NT-Pro-B Natriuret Pep 10/30/19 10/30/19 10/30/19 11:09 19:16 19:16 Creatine Kinase 159 H CK-MB (CK-2) 3.05 4.13 Troponin I 0.046 0.039 NT-Pro-B Natriuret Pep 11/01/19 06:08 Creatine Kinase CK-MB (CK-2) Troponin I NT-Pro-B Natriuret Pep 21313 H Impressions: Chest X-Ray 10/30/19 02:46 IMPRESSION: Worsening opacification in the right lung base likely worsening right pleural effusion and adjacent right basilar atelectasis and/or pneumonia. Assessment & Plan - Diagnosis (1) Acute combined systolic (congestive) and diastolic (congestive) heart failure Is this a current diagnosis for this admission?: Yes Plan: Continue present treatment (2) CKD (chronic kidney disease) stage 3, GFR 30-59 ml/min Is this a current diagnosis for this admission?: Yes (3) Cardiac defibrillator in situ Is this a current diagnosis for this admission?: Yes - Time Time Spent with patient: 15-24 minutes
[2019-11-02] MEDS: HEPARIN SOD (PORCINE) 5,000 UNIT/ML 1 ML VIAL SUBCUT SCH ×3 (05:48→22:41)
[2019-11-02] MEDS: ISOSORBIDE DINITRATE 20 MG TABLET PO SCH ×3 (05:49→22:41)
[2019-11-02 06:36] LABS: APPEARANCE,URINE SLIGHTLY-CLOUDY; BILIRUBIN,URINE NEGATIVE (NEGATIVE); COLOR,URINE YELLOW; GLUCOSE, URINE NEGATIVE (NEGATIVE); KETONES,URINE NEGATIVE (NEGATIVE); LEUKOCYTE ESTERASE,URINE MODERATE (NEGATIVE); NITRITE,URINE NEGATIVE (NEGATIVE); PROTEIN,URINE 30 mg/dL (NEGATIVE); URINE SPECIFIC GRAVITY 1.009
[2019-11-02 07:15] LABS: INTERNATIONAL RATION (INR) 1.17
[2019-11-02] MEDS: SACUBITRIL/VALSARTAN 97 MG/103 MG TABLET PO SCH ×2 (09:59→22:33)
[2019-11-02] MEDS: CARVEDILOL 6.25 MG TABLET PO SCH ×2 (09:59→22:36)
[2019-11-02] MEDS: SPIRONOLACTONE 25 MG TABLET PO SCH (09:59)
[2019-11-02] MEDS: CHOLECALCIFEROL (D3) 400 UNIT TABLET PO SCH (09:59)
[2019-11-02] MEDS: FERROUS SULFATE 325 MG TABLET PO SCH (09:59)
[2019-11-02] MEDS: ALLOPURINOL 100 MG TABLET PO SCH (09:59)
[2019-11-02] MEDS: DIGOXIN 0.125 MG TABLET PO SCH (09:59)
[2019-11-02] MEDS: CALCITRIOL 0.25 MCG CAPSULE PO SCH (09:59)
[2019-11-02] MEDS ORDERED: TORSEMIDE 20 MG TABLET PO SCH (10:00)
[2019-11-02] MEDS: LUBIPROSTONE 24 MCG CAPSULE PO SCH ×2 (10:00→22:35)
[2019-11-02] MEDS: PANTOPRAZOLE SODIUM 40 MG TABLET.DR PO SCH (10:00)
--- NOTE | 2019-11-02 18:40 | RADIOLOGY REPORT (SQ) ---
EXAM DESCRIPTION: CHEST 2 VIEWS COMPLETED DATE/TIME: 11/02/2019 6:29 pm REASON FOR STUDY: followup CHF COMPARISON: 10/30/2019. EXAM PARAMETERS: NUMBER OF VIEWS: two views TECHNIQUE: Digital Frontal and Lateral radiographic views of the chest acquired. RADIATION DOSE: NA LIMITATIONS: none FINDINGS: LUNGS AND PLEURA: Large right pleural effusion. Hazy airspace disease. MEDIASTINUM AND HILAR STRUCTURES: No masses or contour abnormalities. HEART AND VASCULAR STRUCTURES: Cardiomegaly. Vascular prominence. BONES: No acute findings. HARDWARE: Defibrillator. OTHER: No other significant finding. IMPRESSION: LARGE RIGHT PLEURAL EFFUSION. NO CHANGE. TECHNICAL DOCUMENTATION: JOB ID: [id number] [employer]- All Rights Reserved Reading location - IP/workstation name: [email or web address]
--- NOTE | 2019-11-02 19:40 | PDOC PROGRESS REPORT ---
Subjective Progress Note for:: 11/02/19 Subjective:: Patient seen by the bedside admitted for the management of CHF Reason For Visit: HEART FAILURE Physical Exam Vital Signs: Temp Pulse Resp BP Pulse Ox 97.5 F 87 18 131/83 H 100 11/02/19 12:05 11/02/19 14:00 11/02/19 12:05 11/02/19 12:05 11/02/19 12:05 Intake & Output 11/01/19 11/02/19 11/03/19 06:59 06:59 06:59 Intake Total 941 610 720 Output Total 0025 6545 900 Balance -3435 -9600 -180 Weight 96.6 kg 95.9 kg General appearance: PRESENT: no acute distress Eye exam: PRESENT: PERRLA Respiratory exam: PRESENT: crackles Cardiovascular exam: PRESENT: +S1, +S2 GI/Abdominal exam: PRESENT: soft Results Laboratory Results: 11/01/19 06:08 11/01/19 06:08 11/02/19 05:45 Urine Color YELLOW Urine Appearance SLIGHTLY-CLOUDY Urine pH 6.0 Ur Specific [place] 1.009 Urine Protein 30 H Urine Glucose (UA) NEGATIVE Urine Ketones NEGATIVE Urine Blood SMALL H Urine Nitrite NEGATIVE Ur Leukocyte Esterase MODERATE H Urine WBC (Auto) 33 Urine RBC (Auto) 12 10/30/19 10/30/19 10/30/19 02:44 03:48 03:48 Creatine Kinase CK-MB (CK-2) Troponin I Cancelled 0.053 NT-Pro-B Natriuret Pep 20887 H 10/30/19 10/30/19 10/30/19 03:48 03:48 11:09 Creatine Kinase 175 H 137 H CK-MB (CK-2) 2.65 Troponin I Cancelled NT-Pro-B Natriuret Pep 10/30/19 10/30/19 10/30/19 11:09 19:16 19:16 Creatine Kinase 159 H CK-MB (CK-2) 3.05 4.13 Troponin I 0.046 0.039 NT-Pro-B Natriuret Pep 11/01/19 06:08 Creatine Kinase CK-MB (CK-2) Troponin I NT-Pro-B Natriuret Pep 99229 H Impressions: Chest X-Ray 11/02/19 17:33 IMPRESSION: LARGE RIGHT PLEURAL EFFUSION. NO CHANGE. Assessment & Plan - Diagnosis (1) Acute combined systolic (congestive) and diastolic (congestive) heart failure Is this a current diagnosis for this admission?: Yes Plan: Order thoracentesis (2) CKD (chronic kidney disease) stage 3, GFR 30-59 ml/min Is this a current diagnosis for this admission?: Yes (3) Cardiac defibrillator in situ Is this a current diagnosis for this admission?: Yes - Time Time Spent with patient: 15-24 minutes
[2019-11-02] MEDS: TRAMADOL HCL 50 MG TABLET PO PRN (22:31)
[2019-11-02] MEDS: DIPHENHYDRAMINE HCL 25 MG CAPSULE PO PRN (22:32)
[2019-11-02] MEDS: ATORVASTATIN CALCIUM 80 MG TABLET PO SCH (22:34)
[2019-11-02] MEDS: WARFARIN SODIUM 5 MG TABLET PO SCH (22:35)
[2019-11-02] MEDS: HYDRALAZINE HCL 10 MG TABLET PO SCH (22:36)
[2019-11-02] MEDS: ZOLPIDEM TARTRATE 5 MG TABLET PO SCH (22:36)
--- NOTE | 2019-11-02 23:50 | PDOC PROGRESS REPORT ---
Subjective Progress Note for:: 11/02/19 Subjective:: Patient claims she is feeling better. She was sitting by the side of bed dangling her feet. 2D echo results were reviewed with the patient. It showed severely depressed LVEF. Moderate mitral regurgitation was noted. Patient also noted to have pulmonary hypertension. This is mostly secondary to chronic left heart failure. Patient with severe dilated cardiomyopathy, chronic CHF and multiple other comorbid condition, who was admitted with progressive shortness of breath. Patient claims that she is being followed by machine tool designer at [facility]. Reason For Visit: HEART FAILURE Physical Exam Vital Signs: Temp Pulse Resp BP Pulse Ox 98.6 F 77 20 134/80 H 100 11/02/19 19:46 11/02/19 19:46 11/02/19 19:46 11/02/19 19:46 11/02/19 19:46 Intake & Output 11/01/19 11/02/19 11/03/19 06:59 06:59 06:59 Intake Total 941 610 720 Output Total 2325 2475 900 Balance -1384 -1865 -180 Weight 96.6 kg 95.9 kg Exam: GENERAL: well-nourished and in no acute distress. Alert and oriented x3 HEAD: Atraumatic, normocephalic. EYES: JACKY, sclera anicteric, conjunctiva are normal. ENT: Moist mucous membranes. No oral ulcerations or bleeding gums noted. No obvious ear, nose or throat abnormalities noted. NECK: supple without lymphadenopathy. Trachea is central. No cervical or axillary lymphadenopathy noted. Carotids are 2+, JVD WNL LUNGS: Right basal dullness noted on percussion. Diminished breath sounds right side noted. Left side clear. CHEST: Palpation of the chest wall shows no significant chest wall tenderness. 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 ABDOMEN: Soft, no significant tenderness appreciated, normoactive bowel sounds. No guarding, no rebound. No rigidity noted . No masses appreciated. EXTREMITIES: Pedal pulses are 1-2+, no calf tenderness noted. No clubbing or cyanosis. 1-2+ pedal edema noted NEUROLOGICAL: Focused neurological exam showed no significant neurologic deficit. Normal speech, no focal weakness appreciated. PSYCH: Normal mood, normal affect. Judgment and insight within normal limits. SKIN: No significant ecchymosis, skin is noted to be warm. MUSCULOSKELETAL EXAM: No significant acute joint swelling noted. Results Laboratory Results: 11/01/19 06:08 11/01/19 06:08 11/02/19 05:45 Urine Color YELLOW Urine Appearance SLIGHTLY-CLOUDY Urine pH 6.0 Ur Specific [place] 1.009 Urine Protein 30 H Urine Glucose (UA) NEGATIVE Urine Ketones NEGATIVE Urine Blood SMALL H Urine Nitrite NEGATIVE Ur Leukocyte Esterase MODERATE H Urine WBC (Auto) 33 Urine RBC (Auto) 12 10/30/19 10/30/19 10/30/19 02:44 03:48 03:48 Creatine Kinase CK-MB (CK-2) Troponin I Cancelled 0.053 NT-Pro-B Natriuret Pep 91724 H 10/30/19 10/30/19 10/30/19 03:48 03:48 11:09 Creatine Kinase 175 H 137 H CK-MB (CK-2) 2.65 Troponin I Cancelled NT-Pro-B Natriuret Pep 10/30/19 10/30/19 10/30/19 11:09 19:16 19:16 Creatine Kinase 159 H CK-MB (CK-2) 3.05 4.13 Troponin I 0.046 0.039 NT-Pro-B Natriuret Pep 11/01/19 06:08 Creatine Kinase CK-MB (CK-2) Troponin I NT-Pro-B Natriuret Pep [id number] H EKG Comments: Sinus rhythm without any sustained tachycardia or bradycardia. Impressions: Chest X-Ray 11/02/19 17:33 IMPRESSION: LARGE RIGHT PLEURAL EFFUSION. NO CHANGE. Assessment & Plan - Diagnosis (1) CHF (congestive heart failure) Qualifiers: Heart failure type: combined systolic and diastolic Heart failure chronicity: unspecified Qualified Code(s): I50.40 - Unspecified combined systolic (congestive) and diastolic (congestive) heart failure Is this a current diagnosis for this admission?: Yes (2) Acute combined systolic (congestive) and diastolic (congestive) heart fa ilure Is this a current diagnosis for this admission?: Yes (3) Bilateral lower extremity edema Is this a current diagnosis for this admission?: Yes (4) Cardiomyopathy Qualifiers: Cardiomyopathy type: unspecified Qualified Code(s): I42.9 - Cardiomyopathy, unspecified Is this a current diagnosis for this admission?: Yes (5) Chronic kidney disease Qualifiers: Chronic kidney disease stage: stage 3 (moderate) Qualified Code(s): N18.3 - Chronic kidney disease, stage 3 (moderate) (6) Chronic pain syndrome Is this a current diagnosis for this admission?: Yes - Notes Notes: Added hydralazine 10 mg p.o. every 8 to the regimen. Chest x-ray was ordered which showed significant right pleural effusion which is unchanged. May consider thoracentesis for diagnostic and therapeutic purposes. Have also increase Demadex to 40 mg a day. Patient may need additional IV Lasix. I will be out of town from evening onwards but available on phone. If patient deteriorates, consider involving other machine tool designer in town or transferred to tertiary care center. - Time Time with patient: Greater than 35 minutes Medications reviewed and adjusted accordingly: Yes - Medication changes performed.
[2019-11-03 06:00] LABS: INTERNATIONAL RATION (INR) 1.32; PROTHROMBIN TIME 16.5 SEC (11.4-15.4)
[2019-11-03] MEDS: HEPARIN SOD (PORCINE) 5,000 UNIT/ML 1 ML VIAL SUBCUT SCH ×3 (06:40→22:32)
[2019-11-03] MEDS: ISOSORBIDE DINITRATE 20 MG TABLET PO SCH ×3 (06:45→22:32)
[2019-11-03] MEDS: HYDRALAZINE HCL 10 MG TABLET PO SCH ×3 (06:46→22:30)
--- NOTE | 2019-11-03 10:15 | PDOC PROGRESS REPORT ---
Subjective Progress Note for:: 11/03/19 Subjective:: Patient claims she is feeling better. She was sitting by the side of bed dangling her feet. 2D echo results were reviewed with the patient. It showed severely depressed LVEF. Moderate mitral regurgitation was noted. Patient also noted to have pulmonary hypertension. This is mostly secondary to chronic left heart failure. 11/03/2019: Patient doing reasonably well but still has shortness of breath on minimal exertion. She is comfortable at rest. Still has some pedal edema. Medications are still being optimized. Patient does seem to have significant right pleural effusion. Patient with severe dilated cardiomyopathy, chronic CHF and multiple other comorbid condition, who was admitted with progressive shortness of breath. Patient claims that she is being followed by soap chipper at [facility]. Reason For Visit: HEART FAILURE Physical Exam Vital Signs: Temp Pulse Resp BP Pulse Ox 97.8 F 72 25 H 111/63 99 11/03/19 07:14 11/03/19 07:14 11/03/19 08:30 11/03/19 07:14 11/03/19 08:30 Intake & Output 11/02/19 11/03/19 11/04/19 06:59 06:59 06:59 Intake Total 610 1230 Output Total 2475 1250 Balance -1864 Weight 95.9 kg 98 kg Exam: GENERAL: well-nourished and in no acute distress. Alert and oriented x3 HEAD: Atraumatic, normocephalic. EYES: JACKY, sclera anicteric, conjunctiva are normal. ENT: Moist mucous membranes. No oral ulcerations or bleeding gums noted. No obvious ear, nose or throat abnormalities noted. NECK: supple without lymphadenopathy. Trachea is central. No cervical or axillary lymphadenopathy noted. Carotids are 2+, JVD WNL LUNGS: Diminished breath sounds right base along with dullness. Left side clear. CHEST: Palpation of the chest wall shows no significant chest wall tenderness. HEART: [place] NIGHT ASSISTANT, No PSH, 1/6 STEVEN aortic area, 1/6 suh systolic murmur mitral area, no rubs, no gallops. ABDOMEN: Soft, no significant tenderness appreciated, normoactive bowel sounds. No guarding, no rebound. No rigidity noted . No masses appreciated. EXTREMITIES: Pedal pulses are 1-2+, no calf tenderness noted. No clubbing or cyanosis. negative pedal edema noted NEUROLOGICAL: Focused neurological exam showed no significant neurologic deficit. Normal speech, no focal weakness appreciated. PSYCH: Normal mood, normal affect. Judgment and insight within normal limits. SKIN: No significant ecchymosis, skin is noted to be warm. MUSCULOSKELETAL EXAM: No significant acute joint swelling noted. Results Laboratory Results: 11/01/19 06:08 11/01/19 06:08 10/30/19 10/30/19 10/30/19 02:44 03:48 03:48 Creatine Kinase CK-MB (CK-2) Troponin I Cancelled 0.053 NT-Pro-B Natriuret Pep 43860 H 10/30/19 10/30/19 10/30/19 03:48 03:48 11:09 Creatine Kinase 175 H 137 H CK-MB (CK-2) 2.65 Troponin I Cancelled NT-Pro-B Natriuret Pep 10/30/19 10/30/19 10/30/19 11:09 19:16 19:16 Creatine Kinase 159 H CK-MB (CK-2) 3.05 4.13 Troponin I 0.046 0.039 NT-Pro-B Natriuret Pep 11/01/19 06:08 Creatine Kinase CK-MB (CK-2) Troponin I NT-Pro-B Natriuret Pep 51396 H EKG Comments: Sinus rhythm. No sustained tachyarrhythmia or bradycardia arrhythmia noted. Impressions: Chest X-Ray 11/02/19 17:33 IMPRESSION: LARGE RIGHT PLEURAL EFFUSION. NO CHANGE. Assessment & Plan - Diagnosis (1) CHF (congestive heart failure) Qualifiers: Heart failure type: combined systolic and diastolic Heart failure chronicity: unspecified Qualified Code(s): I50.40 - Unspecified combined systolic (congestive) and diastolic (congestive) heart failure Is this a current diagnosis for this admission?: Yes (2) Acute combined systolic (congestive) and diastolic (congestive) heart failure Is this a current diagnosis for this admission?: Yes (3) Bilateral lower extremity edema Is this a current diagnosis for this admission?: Yes (4) Cardiomyopathy Qualifiers: Cardiomyopathy type: unspecified Qualified Code(s): I42.9 - Cardiomyopathy, unspecified Is this a current diagnosis for this admission?: Yes (5) Chronic kidney disease Qualifiers: Chronic kidney disease stage: stage 3 (moderate) Qualified Code(s): N18.3 - Chronic kidney disease, stage 3 (moderate) (6) Chronic pain syndrome Is this a current diagnosis for this admission?: Yes - Notes Notes: Patient now on almost optimal medical management. Patient currently on carvedilol at 6.25 p.o. twice daily. Patient also on the spironolactone, nitrates, ARNI agent, diuretics dose may need to be adjusted. Patient has a biventricular defibrillator in place. Patient therefore seems to be very well managed. Patient may need optimization of diuretic therapy. I will be out of town from this evening but will be available for phone consultation. If patient deteriorates consider transfer to tertiary care. May involve other soap chipper in town if needed. - Time Time with patient: Greater than 35 minutes - More than 50% of the time spent coordinating care, discussing management plans with involved caregivers. Management plans discussed with involved personnels. Medical decision making was of moderate to high complexity, patient's has multiple comorbidities. Medications reviewed and adjusted accordingly: Yes
[2019-11-03] MEDS: DIGOXIN 0.125 MG TABLET PO SCH (10:17)
[2019-11-03] MEDS: SPIRONOLACTONE 25 MG TABLET PO SCH (10:18)
[2019-11-03] MEDS: SACUBITRIL/VALSARTAN 97 MG/103 MG TABLET PO SCH ×2 (10:18→22:32)
[2019-11-03] MEDS: PANTOPRAZOLE SODIUM 40 MG TABLET.DR PO SCH (10:18)
[2019-11-03] MEDS: ALLOPURINOL 100 MG TABLET PO SCH (10:18)
[2019-11-03] MEDS: FERROUS SULFATE 325 MG TABLET PO SCH (10:18)
[2019-11-03] MEDS: CARVEDILOL 6.25 MG TABLET PO SCH ×2 (10:18→22:31)
[2019-11-03] MEDS: CALCITRIOL 0.25 MCG CAPSULE PO SCH (10:18)
[2019-11-03] MEDS: CHOLECALCIFEROL (D3) 400 UNIT TABLET PO SCH (10:21)
[2019-11-03] MEDS: LUBIPROSTONE 24 MCG CAPSULE PO SCH ×2 (10:23→22:32)
[2019-11-03] MEDS: TORSEMIDE 20 MG TABLET PO SCH (10:24)
[2019-11-03 18:47] LABS: HEMATOCRIT 36.1 % (36.0-47.0); HEMOGLOBIN 11.6 g/dL (12.0-15.5); MEAN CORPUSCULAR HEMOGLOBIN 27.7 pg (27.0-33.4); MEAN CORPUSCULAR HGB CONC 32.2 g/dL (32.0-36.0); MEAN CORPUSCULAR VOLUME 86 fl (80-97); PLATELET COUNT 222 10^3/uL (150-450); RED BLOOD COUNT 4.19 10^6/uL (3.72-5.28); RED CELL DISTRIBUTION WIDTH 19.9 % (11.5-14.0); WHITE BLOOD COUNT 4.3 10^3/uL (4.0-10.5)
--- NOTE | 2019-11-03 22:13 | PDOC PROGRESS REPORT ---
Subjective Progress Note for:: 11/03/19 Subjective:: Patient seen by the bedside could not get the thoracentesis Reason For Visit: HEART FAILURE Physical Exam Vital Signs: Temp Pulse Resp BP Pulse Ox 97.5 F 85 18 119/67 99 11/03/19 15:20 11/03/19 15:20 11/03/19 15:20 11/03/19 15:20 11/03/19 15:20 Intake & Output 11/02/19 11/03/19 11/04/19 06:59 06:59 06:59 Intake Total 610 1230 440 Output Total 2475 1250 1725 Balance -1865 -20 -1285 Weight 95.9 kg 98 kg General appearance: PRESENT: no acute distress Eye exam: PRESENT: PERRLA Respiratory exam: PRESENT: clear to auscultation abdi Cardiovascular exam: PRESENT: +S1, +S2 GI/Abdominal exam: PRESENT: soft Neurological exam: PRESENT: alert, CN II-XII grossly intact Results Laboratory Results: 11/03/19 18:40 11/01/19 06:08 11/03/19 18:40 WBC 4.3 RBC 4.19 Hgb 11.6 L Hct 36.1 MCV 86 MCH 27.7 MCHC 32.2 RDW 19.9 H Plt Count 222 10/30/19 10/30/19 10/30/19 02:44 03:48 03:48 Creatine Kinase CK-MB (CK-2) Troponin I Cancelled 0.053 NT-Pro-B Natriuret Pep [id number] H 10/30/19 10/30/19 10/30/19 03:48 03:48 11:09 Creatine Kinase 175 H 137 H CK-MB (CK-2) 2.65 Troponin I Cancelled NT-Pro-B Natriuret Pep 10/30/19 10/30/19 10/30/19 11:09 19:16 19:16 Creatine Kinase 159 H CK-MB (CK-2) 3.05 4.13 Troponin I 0.046 0.039 NT-Pro-B Natriuret Pep 11/01/19 06:08 Creatine Kinase CK-MB (CK-2) Troponin I NT-Pro-B Natriuret Pep [id number] H Impressions: Chest X-Ray 11/02/19 17:33 IMPRESSION: LARGE RIGHT PLEURAL EFFUSION. NO CHANGE. Assessment & Plan - Diagnosis (1) Acute combined systolic (congestive) and diastolic (congestive) heart failure Is this a current diagnosis for this admission?: Yes Plan: Continue treatment (2) CKD (chronic kidney disease) stage 3, GFR 30-59 ml/min Is this a current diagnosis for this admission?: Yes (3) Cardiac defibrillator in situ Is this a current diagnosis for this admission?: Yes - Time Time Spent with patient: Less than 15 minutes
[2019-11-03] MEDS: DIPHENHYDRAMINE HCL 25 MG CAPSULE PO PRN (22:30)
[2019-11-03] MEDS: ZOLPIDEM TARTRATE 5 MG TABLET PO SCH (22:31)
[2019-11-03] MEDS: TRAMADOL HCL 50 MG TABLET PO PRN (22:31)
[2019-11-03] MEDS: ATORVASTATIN CALCIUM 80 MG TABLET PO SCH (22:32)
[2019-11-04 03:30] LABS: APPEARANCE,URINE CLOUDY; BILIRUBIN,URINE NEGATIVE (NEGATIVE); COLOR,URINE YELLOW; GLUCOSE, URINE NEGATIVE (NEGATIVE); KETONES,URINE NEGATIVE (NEGATIVE); LEUKOCYTE ESTERASE,URINE LARGE (NEGATIVE); NITRITE,URINE NEGATIVE (NEGATIVE); PROTEIN,URINE 30 mg/dL (NEGATIVE); URINE SPECIFIC GRAVITY 1.013; UROBILINOGEN,URINE NEGATIVE mg/dL (<2.0)
[2019-11-04] MEDS: HEPARIN SOD (PORCINE) 5,000 UNIT/ML 1 ML VIAL SUBCUT SCH ×3 (06:16→21:17)
[2019-11-04 06:28] LABS: INTERNATIONAL RATION (INR) 1.39; PROTHROMBIN TIME 17.2 SEC (11.4-15.4)
[2019-11-04] MEDS: HYDRALAZINE HCL 10 MG TABLET PO SCH ×3 (06:28→21:15)
[2019-11-04] MEDS: ISOSORBIDE DINITRATE 20 MG TABLET PO SCH ×3 (06:29→21:16)
--- NOTE | 2019-11-04 09:38 | RADIOLOGY REPORT (SQ) ---
EXAM DESCRIPTION: U/S THORACENTESIS WITH IMAGING COMPLETED DATE/TIME: 11/04/2019 9:26 am REASON FOR STUDY: pleural effusion COMPARISON: 11/02/2018 LIMITATIONS: None. PROCEDURE: Procedure, risks, benefit, and alternative explained to patient who then gave written con sent. The right chest wall was marked using ultrasound guidance. A time-out was called for correct marking verification. Chest prepped and draped using sterile technique. Local anesthesia achieved us ing 10 ml of 1% lidocaine injection. A 6fr Safe-T- Centesis set was introduced into the right pleura l space. Fluid was aspirated. The catheter was removed and the entry site was covered with sterile bandage. No immediate complications noted. Images acquired during the procedure were stored on PACS. FINDINGS: ENTRY SITE: posterior right chest. FLUID VOLUME: 1000 cc FLUID ANALYSIS: Straw color OTHER: Fluid sent to the lab for testing. IMPRESSION: SUCCESSFUL THORACENTESIS USING ULTRASOUND GUIDANCE. COMMENT: Patient medication list reviewed: Yes- Quality ID# [id number]:Eligible professional attests to doc umenting in the medical record they obtained, updated, or reviewed the patient's current medications. TECHNICAL DOCUMENTATION: JOB ID: [id number] [employer]- All Rights Reserved Reading location - IP/workstation name: [email or web address]
--- NOTE | 2019-11-04 09:58 | RADIOLOGY REPORT (SQ) ---
EXAM DESCRIPTION: CHEST SINGLE VIEW COMPLETED DATE/TIME: 11/04/2019 9:34 am REASON FOR STUDY: POST THORA RT PLEURAL EFFUSION COMPARISON: 11/02/2019 EXAM PARAMETERS: NUMBER OF VIEWS: One view. TECHNIQUE: Single frontal radiographic view of the chest acquired. RADIATION DOSE: NA LIMITATIONS: None. FINDINGS: LUNGS AND PLEURA: Decreased right-sided pleural effusion post thoracentesis. No pneumotho rax. Residual mild effusion and basilar atelectasis. Stable left hemithorax. MEDIASTINUM AND HILAR STRUCTURES: No masses. Contour normal. HEART AND VASCULAR STRUCTURES: Enlarged cardiac silhouette, stable. Aortic atherosclerosis. BONES: No acute findings. HARDWARE: Unchanged left-sided cardiac pacer/defibrillator with leads overlying right atrium, coronar y sinus right ventricle OTHER: No other significant finding. IMPRESSION: No pneumothorax post right thoracentesis. Decreased right pleural effusion with mild residual effusion and basilar atelectasis. TECHNICAL DOCUMENTATION: JOB ID: [id number] [employer]- All Rights Reserved Reading location - IP/workstation name: [email or web address]
[2019-11-04] MEDS: CHOLECALCIFEROL (D3) 400 UNIT TABLET PO SCH (11:41)
[2019-11-04] MEDS: PANTOPRAZOLE SODIUM 40 MG TABLET.DR PO SCH (11:41)
[2019-11-04] MEDS: ALLOPURINOL 100 MG TABLET PO SCH (11:41)
[2019-11-04] MEDS: FERROUS SULFATE 325 MG TABLET PO SCH (11:41)
[2019-11-04] MEDS: DIGOXIN 0.125 MG TABLET PO SCH (11:41)
[2019-11-04] MEDS: SACUBITRIL/VALSARTAN 97 MG/103 MG TABLET PO SCH ×2 (11:41→21:16)
[2019-11-04] MEDS: CALCITRIOL 0.25 MCG CAPSULE PO SCH (11:41)
[2019-11-04] MEDS: TORSEMIDE 20 MG TABLET PO SCH (11:42)
[2019-11-04] MEDS: SPIRONOLACTONE 25 MG TABLET PO SCH (11:43)
[2019-11-04] MEDS: CARVEDILOL 6.25 MG TABLET PO SCH ×2 (11:43→21:17)
[2019-11-04] MEDS: LUBIPROSTONE 24 MCG CAPSULE PO SCH ×2 (11:49→21:16)
--- NOTE | 2019-11-04 12:33 | RADIOLOGY REPORT (SQ) ---
EXAM DESCRIPTION: CHEST SINGLE VIEW COMPLETED DATE/TIME: 11/04/2019 11:34 am REASON FOR STUDY: 2 HOUR POST THORA RT PLEURAL EFFUSION COMPARISON: Same day radiograph EXAM PARAMETERS: NUMBER OF VIEWS: One view. TECHNIQUE: Single frontal radiographic view of the chest acquired. RADIATION DOSE: NA LIMITATIONS: None. FINDINGS: LUNGS AND PLEURA: No pneumothorax post right thoracentesis. Stable right basilar patchy o pacities. Stable small effusions. MEDIASTINUM AND HILAR STRUCTURES: Stable. HEART AND VASCULAR STRUCTURES: Enlarged, stable. BONES: No acute findings. HARDWARE: Cardiac pacer/ defibrillator, stable. OTHER: No other significant finding. IMPRESSION: No pneumothorax post right thoracentesis. TECHNICAL DOCUMENTATION: JOB ID: [id number] [employer]- All Rights Reserved Reading location - IP/workstation name: [email or web address]
[2019-11-04] MEDS: ATORVASTATIN CALCIUM 80 MG TABLET PO SCH (21:15)
--- NOTE | 2019-11-04 22:36 | PDOC PROGRESS REPORT ---
Subjective Progress Note for:: 11/04/19 Subjective:: Patient underwent thoracentesis today, 1000 cc of fluid was removed Reason For Visit: HEART FAILURE Physical Exam Vital Signs: Temp Pulse Resp BP Pulse Ox 99.0 F 77 19 110/65 100 11/04/19 19:32 11/04/19 19:32 11/04/19 19:32 11/04/19 19:32 11/04/19 19:32 Intake & Output 11/03/19 11/04/19 11/05/19 06:59 06:59 06:59 Intake Total 2051 696 2845 Output Total 1250 2100 925 Balance -20 1438 253 Weight 98 kg 99.8 kg General appearance: PRESENT: no acute distress Eye exam: PRESENT: PERRLA Respiratory exam: PRESENT: clear to auscultation abdi Cardiovascular exam: PRESENT: +S1, +S2 GI/Abdominal exam: PRESENT: soft Neurological exam: PRESENT: alert Results Laboratory Results: 11/03/19 18:40 11/01/19 06:08 11/04/19 02:55 Urine Color YELLOW Urine Appearance CLOUDY Urine pH 5.0 Ur Specific [place] 1.013 Urine Protein 30 H Urine Glucose (UA) NEGATIVE Urine Ketones NEGATIVE Urine Blood MODERATE H Urine Nitrite NEGATIVE Ur Leukocyte Esterase LARGE H Urine WBC (Auto) 173 Urine RBC (Auto) 129 10/30/19 10/30/19 10/30/19 02:44 03:48 03:48 Creatine Kinase CK-MB (CK-2) Troponin I Cancelled 0.053 NT-Pro-B Natriuret Pep 43313 H 10/30/19 10/30/19 10/30/19 03:48 03:48 11:09 Creatine Kinase 175 H 137 H CK-MB (CK-2) 2.65 Troponin I Cancelled NT-Pro-B Natriuret Pep 10/30/19 10/30/19 10/30/19 11:09 19:16 19:16 Creatine Kinase 159 H CK-MB (CK-2) 3.05 4.13 Troponin I 0.046 0.039 NT-Pro-B Natriuret Pep 11/01/19 06:08 Creatine Kinase CK-MB (CK-2) Troponin I NT-Pro-B Natriuret Pep 30010 H Impressions: Chest X-Ray 11/04/19 11:09 IMPRESSION: No pneumothorax post right thoracentesis. Thoracentesis Ultrasound 11/04/19 19:37 IMPRESSION: SUCCESSFUL THORACENTESIS USING ULTRASOUND GUIDANCE. Assessment & Plan - Diagnosis (1) Acute combined systolic (congestive) and diastolic (congestive) heart failure Is this a current diagnosis for this admission?: Yes (2) CKD (chronic kidney disease) stage 3, GFR 30-59 ml/min Is this a current diagnosis for this admission?: Yes (3) Cardiac defibrillator in situ Is this a current diagnosis for this admission?: Yes - Time Time Spent with patient: 25-34 minutes Level of Care: IMCU
[2019-11-05] MEDS: ZOLPIDEM TARTRATE 5 MG TABLET PO SCH ×2 (00:02→21:51)
[2019-11-05] MEDS: DIPHENHYDRAMINE HCL 25 MG CAPSULE PO PRN ×3 (00:02→21:52)
[2019-11-05] MEDS: TRAMADOL HCL 50 MG TABLET PO PRN ×3 (00:03→21:52)
[2019-11-05 00:16] LABS: APPEARANCE,URINE SLIGHTLY-CLOUDY; BILIRUBIN,URINE NEGATIVE (NEGATIVE); COLOR,URINE YELLOW; GLUCOSE, URINE NEGATIVE (NEGATIVE); KETONES,URINE NEGATIVE (NEGATIVE); LEUKOCYTE ESTERASE,URINE LARGE (NEGATIVE); NITRITE,URINE NEGATIVE (NEGATIVE); PROTEIN,URINE 100 mg/dL (NEGATIVE); URINE SPECIFIC GRAVITY 1.011; UROBILINOGEN,URINE NEGATIVE mg/dL (<2.0)
[2019-11-05 05:51] LABS: PROTHROMBIN TIME 16.3 SEC (11.4-15.4)
[2019-11-05] MEDS: ISOSORBIDE DINITRATE 20 MG TABLET PO SCH ×3 (06:54→21:51)
[2019-11-05] MEDS: HYDRALAZINE HCL 10 MG TABLET PO SCH ×3 (06:54→21:51)
[2019-11-05] MEDS: HEPARIN SOD (PORCINE) 5,000 UNIT/ML 1 ML VIAL SUBCUT SCH ×3 (06:55→21:52)
[2019-11-05] MEDS: CARVEDILOL 6.25 MG TABLET PO SCH ×2 (10:59→21:51)
[2019-11-05] MEDS: FERROUS SULFATE 325 MG TABLET PO SCH (11:00)
[2019-11-05] MEDS: TORSEMIDE 20 MG TABLET PO SCH (11:00)
[2019-11-05] MEDS: CALCITRIOL 0.25 MCG CAPSULE PO SCH (11:00)
[2019-11-05] MEDS: SPIRONOLACTONE 25 MG TABLET PO SCH (11:00)
[2019-11-05] MEDS: DIGOXIN 0.125 MG TABLET PO SCH (11:00)
[2019-11-05] MEDS: LUBIPROSTONE 24 MCG CAPSULE PO SCH ×2 (11:00→21:53)
[2019-11-05] MEDS: CHOLECALCIFEROL (D3) 400 UNIT TABLET PO SCH (11:00)
[2019-11-05] MEDS: PANTOPRAZOLE SODIUM 40 MG TABLET.DR PO SCH (11:02)
[2019-11-05] MEDS: SACUBITRIL/VALSARTAN 97 MG/103 MG TABLET PO SCH ×2 (11:02→21:52)
[2019-11-05] MEDS: ALLOPURINOL 100 MG TABLET PO SCH (11:02)
[2019-11-05 16:48] LABS: ABSOLUTE BASOPHILS # (AUTO) 0.1 10^3/uL (0.0-0.2); ABSOLUTE EOSINOPHILS # (AUTO) 0.2 10^3/uL (0.0-0.6); ABSOLUTE LYMPHOCYTES (AUTO) 0.5 10^3/uL (0.5-4.7); ABSOLUTE MONOCYTES (AUTO) 0.4 10^3/uL (0.1-1.4); ABSOLUTE NEUT (AUTO) 3.2 10^3/uL (1.7-8.2); BASOPHILS % (AUTO) 1.6 % (0-2); EOSINOPHILS % (AUTO) 4.3 % (0-6); HEMATOCRIT 34.1 % (36.0-47.0); HEMOGLOBIN 10.7 g/dL (12.0-15.5); LYMPHOCYTES % (AUTO) 12.1 % (13-45); MEAN CORPUSCULAR HEMOGLOBIN 27.5 pg (27.0-33.4); MEAN CORPUSCULAR HGB CONC 31.5 g/dL (32.0-36.0); MEAN CORPUSCULAR VOLUME 87 fl (80-97); PLATELET COUNT 190 10^3/uL (150-450); TOTAL CELLS COUNTED % (AUTO) 100 %; WHITE BLOOD COUNT 4.4 10^3/uL (4.0-10.5)
[2019-11-05 16:55] LABS: ALBUMIN 2.3 g/dL (3.5-5.0); ALKALINE PHOSPHATASE 128 U/L (38-126); ANION GAP 5 (5-19); ASPARTATE AMINO TRANSFERASE 17 U/L (14-36); BILIRUBIN,TOTAL 0.4 mg/dL (0.2-1.3); BLOOD UREA NITROGEN 28 mg/dL (7-20); CARBON DIOXIDE 25 mmol/L (22-30); CHLORIDE 106 mmol/L (98-107); GLUCOSE 71 mg/dL (75-110); POTASSIUM 4.5 mmol/L (3.6-5.0); TOTAL PROTEIN 4.6 g/dL (6.3-8.2)
--- NOTE | 2019-11-05 20:17 | PDOC PROGRESS REPORT ---
Subjective Progress Note for:: 11/05/19 Subjective:: Patient seen by the bedside, she has multiple comorbid conditions including chronic systolic diastolic heart failure nephrotic range proteinuria, chronic kidney disease stage III. Patient advised to get out of bed, ambulate, she is very deconditioned Reason For Visit: HEART FAILURE Physical Exam Vital Signs: Temp Pulse Resp BP Pulse Ox 98.0 F 71 20 124/87 H 100 11/05/19 12:14 11/05/19 14:00 11/05/19 12:14 11/05/19 12:14 11/05/19 12:14 Intake & Output 11/04/19 11/05/19 11/06/19 06:59 06:59 06:59 Intake Total 662 1414 938 Output Total 2100 1475 1100 Balance -1438 -61 -162 Weight 99.8 kg 95.1 kg General appearance: PRESENT: no acute distress Eye exam: PRESENT: PERRLA Respiratory exam: PRESENT: clear to auscultation abdi Cardiovascular exam: PRESENT: +S1, +S2 GI/Abdominal exam: PRESENT: soft Neurological exam: PRESENT: alert Results Laboratory Results: 11/05/19 04:50 11/05/19 04:50 11/04/19 11/04/19 11/04/19 09:06 09:06 23:45 WBC RBC Hgb Hct MCV MCH MCHC RDW Plt Count Seg Neutrophils % Sodium Potassium Chloride Carbon Dioxide Anion Gap BUN Creatinine Est GFR ( Amer) Glucose Calcium Total Bilirubin AST Alkaline Phosphatase Total Protein Albumin Urine Color Urine Appearance Urine pH Ur Specific [place] Urine Protein Urine Glucose (UA) Urine Ketones Urine Blood Urine Nitrite Ur Leukocyte Esterase Urine WBC (Auto) Urine RBC (Auto) Fluid Albumin 1.0 Fluid LDH 97 Stool Occult Blood NEGATIVE 11/04/19 11/05/19 11/05/19 23:45 04:50 04:50 WBC 4.4 RBC 3.90 Hgb 10.7 L Hct 34.1 L MCV 87 MCH 27.5 MCHC 31.5 L RDW 20.0 H Plt Count 190 Seg Neutrophils % 74.0 Sodium 136.1 L Potassium 4.5 Chloride 106 Carbon Dioxide 25 Anion Gap 5 BUN 28 H Creatinine 1.94 H Est GFR ( Amer) 34 L Glucose 71 L Calcium 8.0 L Total Bilirubin 0.4 AST 17 Alkaline Phosphatase 128 H Total Protein 4.6 L Albumin 2.3 L Urine Color YELLOW Urine Appearance SLIGHTLY-CLOUDY Urine pH 6.0 Ur Specific [place] 1.011 Urine Protein 100 H Urine Glucose (UA) NEGATIVE Urine Ketones NEGATIVE Urine Blood SMALL H Urine Nitrite NEGATIVE Ur Leukocyte Esterase LARGE H Urine WBC (Auto) >182 Urine RBC (Auto) 41 Fluid Albumin Fluid LDH Stool Occult Blood 10/30/19 10/30/19 10/30/19 02:44 03:48 03:48 Creatine Kinase CK-MB (CK-2) Troponin I Cancelled 0.053 NT-Pro-B Natriuret Pep [id number] H 10/30/19 10/30/19 10/30/19 03:48 03:48 11:09 Creatine Kinase 175 H 137 H CK-MB (CK-2) 2.65 Troponin I Cancelled NT-Pro-B Natriuret Pep 10/30/19 10/30/19 10/30/19 11:09 19:16 19:16 Creatine Kinase 159 H CK-MB (CK-2) 3.05 4.13 Troponin I 0.046 0.039 NT-Pro-B Natriuret Pep 11/01/19 06:08 Creatine Kinase CK-MB (CK-2) Troponin I NT-Pro-B Natriuret Pep [id number] H Impressions: Chest X-Ray 11/04/19 11:09 IMPRESSION: No pneumothorax post right thoracentesis. Thoracentesis Ultrasound 11/04/19 19:37 IMPRESSION: SUCCESSFUL THORACENTESIS USING ULTRASOUND GUIDANCE. Assessment & Plan - Diagnosis (1) Acute combined systolic (congestive) and diastolic (congestive) heart failure Is this a current diagnosis for this admission?: Yes Plan: Continue IV furosemide infusion (2) CKD (chronic kidney disease) stage 3, GFR 30-59 ml/min Is this a current diagnosis for this admission?: Yes (3) Cardiac defibrillator in situ Is this a current diagnosis for this admission?: Yes - Time Time Spent with patient: 35 or more minutes Level of Care: IMCU
[2019-11-05] MEDS: ATORVASTATIN CALCIUM 80 MG TABLET PO SCH (21:51)
[2019-11-06 06:25] LABS: INTERNATIONAL RATION (INR) 1.25; PROTHROMBIN TIME 15.8 SEC (11.4-15.4)
[2019-11-06 06:33] LABS: ABSOLUTE EOSINOPHILS # (AUTO) 0.2 10^3/uL (0.0-0.6); ABSOLUTE LYMPHOCYTES (AUTO) 0.5 10^3/uL (0.5-4.7); ABSOLUTE MONOCYTES (AUTO) 0.4 10^3/uL (0.1-1.4); ABSOLUTE NEUT (AUTO) 2.3 10^3/uL (1.7-8.2); BASOPHILS % (AUTO) 0.6 % (0-2); EOSINOPHILS % (AUTO) 5.9 % (0-6); HEMATOCRIT 32.8 % (36.0-47.0); HEMOGLOBIN 10.6 g/dL (12.0-15.5); LYMPHOCYTES % (AUTO) 14.8 % (13-45); MEAN CORPUSCULAR HEMOGLOBIN 27.6 pg (27.0-33.4); MEAN CORPUSCULAR HGB CONC 32.5 g/dL (32.0-36.0); MEAN CORPUSCULAR VOLUME 85 fl (80-97); MONOCYTES % (AUTO) 11.2 % (3-13); PLATELET COUNT 169 10^3/uL (150-450); RED BLOOD COUNT 3.85 10^6/uL (3.72-5.28); RED CELL DISTRIBUTION WIDTH 19.1 % (11.5-14.0); SEGMENTED NEUTROPHILS % (AUTO) 67.5 % (42-78); TOTAL CELLS COUNTED % (AUTO) 100 %; WHITE BLOOD COUNT 3.4 10^3/uL (4.0-10.5)
[2019-11-06 06:41] LABS: ALBUMIN 2.4 g/dL (3.5-5.0); ALKALINE PHOSPHATASE 127 U/L (38-126); ANION GAP 5 (5-19); ASPARTATE AMINO TRANSFERASE 17 U/L (14-36); BILIRUBIN,DIRECT 0.3 mg/dL (0.0-0.4); BILIRUBIN,TOTAL 0.7 mg/dL (0.2-1.3); BLOOD UREA NITROGEN 29 mg/dL (7-20); CALCIUM 8.3 mg/dL (8.4-10.2); CARBON DIOXIDE 27 mmol/L (22-30); CHLORIDE 104 mmol/L (98-107); GLUCOSE 80 mg/dL (75-110); POTASSIUM 4.2 mmol/L (3.6-5.0)
[2019-11-06] MEDS: HYDRALAZINE HCL 10 MG TABLET PO SCH ×3 (06:44→21:48)
[2019-11-06] MEDS: HEPARIN SOD (PORCINE) 5,000 UNIT/ML 1 ML VIAL SUBCUT SCH ×3 (06:44→21:44)
[2019-11-06] MEDS: ISOSORBIDE DINITRATE 20 MG TABLET PO SCH ×3 (06:44→21:47)
[2019-11-06] MEDS: CARVEDILOL 6.25 MG TABLET PO SCH ×2 (10:11→21:48)
[2019-11-06] MEDS: LUBIPROSTONE 24 MCG CAPSULE PO SCH ×2 (10:11→21:49)
[2019-11-06] MEDS: FERROUS SULFATE 325 MG TABLET PO SCH (10:11)
[2019-11-06] MEDS: TORSEMIDE 20 MG TABLET PO SCH (10:11)
[2019-11-06] MEDS: CALCITRIOL 0.25 MCG CAPSULE PO SCH (10:11)
[2019-11-06] MEDS: CHOLECALCIFEROL (D3) 400 UNIT TABLET PO SCH (10:11)
[2019-11-06] MEDS: PANTOPRAZOLE SODIUM 40 MG TABLET.DR PO SCH (10:12)
[2019-11-06] MEDS: DIGOXIN 0.125 MG TABLET PO SCH (10:12)
[2019-11-06] MEDS: ALLOPURINOL 100 MG TABLET PO SCH (10:12)
[2019-11-06] MEDS: SACUBITRIL/VALSARTAN 97 MG/103 MG TABLET PO SCH ×2 (10:12→21:48)
[2019-11-06] MEDS: SPIRONOLACTONE 25 MG TABLET PO SCH (10:12)
[2019-11-06 18:49] LABS: HEMATOCRIT 34.9 % (36.0-47.0); HEMOGLOBIN 11.3 g/dL (12.0-15.5); MEAN CORPUSCULAR HEMOGLOBIN 27.8 pg (27.0-33.4); MEAN CORPUSCULAR HGB CONC 32.3 g/dL (32.0-36.0); MEAN CORPUSCULAR VOLUME 86 fl (80-97); PLATELET COUNT 196 10^3/uL (150-450); RED BLOOD COUNT 4.05 10^6/uL (3.72-5.28); WHITE BLOOD COUNT 3.8 10^3/uL (4.0-10.5)
--- NOTE | 2019-11-06 19:00 | PDOC PROGRESS REPORT ---
Subjective Progress Note for:: 11/06/19 Subjective:: Patient is alert,Patient is encouraged to ambulate, we will try to get thoracentesis tomorrow Reason For Visit: HEART FAILURE Physical Exam Vital Signs: Temp Pulse Resp BP Pulse Ox 98.3 F 70 20 108/73 93 11/06/19 15:27 11/06/19 15:27 11/06/19 15:27 11/06/19 15:27 11/06/19 15:27 Intake & Output 11/05/19 11/06/19 11/07/19 06:59 06:59 06:59 Intake Total 1414 1657 1282 Output Total 1475 2500 1300 Balance -61 -843 -18 Weight 95.1 kg General appearance: PRESENT: no acute distress Eye exam: PRESENT: PERRLA Respiratory exam: PRESENT: clear to auscultation abdi Cardiovascular exam: PRESENT: +S1, +S2 Neurological exam: PRESENT: alert Results Laboratory Results: 11/06/19 18:45 11/06/19 06:10 11/04/19 11/06/19 11/06/19 09:06 06:10 06:10 WBC 3.4 L RBC 3.85 Hgb 10.6 L Hct 32.8 L MCV 85 MCH 27.6 MCHC 32.5 RDW 19.1 H Plt Count 169 Seg Neutrophils % 67.5 Sodium 136.4 L Potassium 4.2 Chloride 104 Carbon Dioxide 27 Anion Gap 5 BUN 29 H Creatinine 1.82 H Est GFR ( Amer) 37 L Glucose 80 Calcium 8.3 L Total Bilirubin 0.7 AST 17 Alkaline Phosphatase 127 H Total Protein 5.0 L Albumin 2.4 L Fluid Total Protein 1.7 11/06/19 18:45 WBC 3.8 L RBC 4.05 Hgb 11.3 L Hct 34.9 L MCV 86 MCH 27.8 MCHC 32.3 RDW 20.0 H Plt Count 196 Seg Neutrophils % Sodium Potassium Chloride Carbon Dioxide Anion Gap BUN Creatinine Est GFR ( Amer) Glucose Calcium Total Bilirubin AST Alkaline Phosphatase Total Protein Albumin Fluid Total Protein 11/04/19 02:55 Raza Catheter Urine Culture - Final Klebsiella Pneumoniae 10/30/19 10/30/19 10/30/19 02:44 03:48 03:48 Creatine Kinase CK-MB (CK-2) Troponin I Cancelled 0.053 NT-Pro-B Natriuret Pep 08254 H 10/30/19 10/30/19 10/30/19 03:48 03:48 11:09 Creatine Kinase 175 H 137 H CK-MB (CK-2) 2.65 Troponin I Cancelled NT-Pro-B Natriuret Pep 10/30/19 10/30/19 10/30/19 11:09 19:16 19:16 Creatine Kinase 159 H CK-MB (CK-2) 3.05 4.13 Troponin I 0.046 0.039 NT-Pro-B Natriuret Pep 11/01/19 06:08 Creatine Kinase CK-MB (CK-2) Troponin I NT-Pro-B Natriuret Pep [id number] H Impressions: Chest X-Ray 11/04/19 11:09 IMPRESSION: No pneumothorax post right thoracentesis. Thoracentesis Ultrasound 11/04/19 19:37 IMPRESSION: SUCCESSFUL THORACENTESIS USING ULTRASOUND GUIDANCE. Assessment & Plan - Diagnosis (1) Acute combined systolic (congestive) and diastolic (congestive) heart failure Is this a current diagnosis for this admission?: Yes (2) CKD (chronic kidney disease) stage 3, GFR 30-59 ml/min Is this a current diagnosis for this admission?: Yes (3) Cardiac defibrillator in situ Is this a current diagnosis for this admission?: Yes - Time Time Spent with patient: 15-24 minutes
[2019-11-06 20:06] LABS: INTERNATIONAL RATION (INR) 1.14; PROTHROMBIN TIME 14.7 SEC (11.4-15.4)
[2019-11-06] MEDS: ATORVASTATIN CALCIUM 80 MG TABLET PO SCH (21:48)
[2019-11-06] MEDS: ZOLPIDEM TARTRATE 5 MG TABLET PO SCH (23:15)
[2019-11-06] MEDS: DIPHENHYDRAMINE HCL 25 MG CAPSULE PO PRN (23:15)
[2019-11-06] MEDS: TRAMADOL HCL 50 MG TABLET PO PRN (23:16)
[2019-11-07] MEDS: HEPARIN SOD (PORCINE) 5,000 UNIT/ML 1 ML VIAL SUBCUT SCH ×3 (05:55→21:42)
[2019-11-07] MEDS: ISOSORBIDE DINITRATE 20 MG TABLET PO SCH ×3 (06:02→21:42)
[2019-11-07] MEDS: HYDRALAZINE HCL 10 MG TABLET PO SCH ×3 (06:02→21:41)
[2019-11-07 09:56] LABS: ABSOLUTE EOSINOPHILS # (AUTO) 0.2 10^3/uL (0.0-0.6); ABSOLUTE LYMPHOCYTES (AUTO) 0.5 10^3/uL (0.5-4.7); ABSOLUTE MONOCYTES (AUTO) 0.3 10^3/uL (0.1-1.4); ABSOLUTE NEUT (AUTO) 2.5 10^3/uL (1.7-8.2); BASOPHILS % (AUTO) 0.6 % (0-2); HEMATOCRIT 34.3 % (36.0-47.0); HEMOGLOBIN 11.2 g/dL (12.0-15.5); LYMPHOCYTES % (AUTO) 14.2 % (13-45); MEAN CORPUSCULAR HEMOGLOBIN 27.9 pg (27.0-33.4); MEAN CORPUSCULAR HGB CONC 32.6 g/dL (32.0-36.0); MEAN CORPUSCULAR VOLUME 86 fl (80-97); MONOCYTES % (AUTO) 7.8 % (3-13); PLATELET COUNT 190 10^3/uL (150-450); RED BLOOD COUNT 4.01 10^6/uL (3.72-5.28); RED CELL DISTRIBUTION WIDTH 19.1 % (11.5-14.0); SEGMENTED NEUTROPHILS % (AUTO) 71.4 % (42-78); TOTAL CELLS COUNTED % (AUTO) 100 %; WHITE BLOOD COUNT 3.6 10^3/uL (4.0-10.5)
[2019-11-07 10:19] LABS: ALBUMIN 2.6 g/dL (3.5-5.0); ALKALINE PHOSPHATASE 143 U/L (38-126); ANION GAP 10 (5-19); ASPARTATE AMINO TRANSFERASE 20 U/L (14-36); BILIRUBIN,DIRECT 0.3 mg/dL (0.0-0.4); BILIRUBIN,TOTAL 0.6 mg/dL (0.2-1.3); BLOOD UREA NITROGEN 30 mg/dL (7-20); CALCIUM 8.6 mg/dL (8.4-10.2); CARBON DIOXIDE 23 mmol/L (22-30); CHLORIDE 105 mmol/L (98-107); GLUCOSE 120 mg/dL (75-110); POTASSIUM 4.4 mmol/L (3.6-5.0); TOTAL PROTEIN 5.4 g/dL (6.3-8.2)
[2019-11-07] MEDS: FERROUS SULFATE 325 MG TABLET PO SCH (10:57)
[2019-11-07] MEDS: SACUBITRIL/VALSARTAN 97 MG/103 MG TABLET PO SCH (10:57)
[2019-11-07] MEDS: CARVEDILOL 6.25 MG TABLET PO SCH ×2 (10:57→21:40)
[2019-11-07] MEDS: CHOLECALCIFEROL (D3) 400 UNIT TABLET PO SCH (10:57)
[2019-11-07] MEDS: ALLOPURINOL 100 MG TABLET PO SCH (10:57)
[2019-11-07] MEDS: SPIRONOLACTONE 25 MG TABLET PO SCH (10:57)
[2019-11-07] MEDS: TORSEMIDE 20 MG TABLET PO SCH (10:57)
[2019-11-07] MEDS: CALCITRIOL 0.25 MCG CAPSULE PO SCH (10:57)
[2019-11-07] MEDS: PANTOPRAZOLE SODIUM 40 MG TABLET.DR PO SCH (10:57)
[2019-11-07] MEDS: DIGOXIN 0.125 MG TABLET PO SCH (10:57)
[2019-11-07] MEDS: LUBIPROSTONE 24 MCG CAPSULE PO SCH ×2 (10:57→21:32)
--- NOTE | 2019-11-07 14:00 | RADIOLOGY REPORT (SQ) ---
EXAM DESCRIPTION: CHEST SINGLE VIEW COMPLETED DATE/TIME: 11/07/2019 1:41 pm REASON FOR STUDY: S/P RT THORACENTESIS COMPARISON: AP view of the chest from 11/04/2019. EXAM PARAMETERS: NUMBER OF VIEWS: One view. TECHNIQUE: An AP view of the chest was obtained. RADIATION DOSE: NA LIMITATIONS: None. FINDINGS: LUNGS AND PLEURA: Status post a right-sided ultrasound-guided thoracentesis. There is no postprocedural pneumothorax. The diffuse ill-defined parenchymal opacities are unchanged. MEDIASTINUM AND HILAR STRUCTURES: Stable mediastinal and hilar contours. HEART AND VASCULAR STRUCTURES: Stable cardiomegaly. BONES: No acute findings. HARDWARE: Intact left subclavian vein approach ICD. OTHER: No other finding. IMPRESSION: No postprocedural pneumothorax. TECHNICAL DOCUMENTATION: JOB ID: [id number] 2010 [employer]- All Rights Reserved Reading location - IP/workstation name: [email or web address]
--- NOTE | 2019-11-07 15:11 | RADIOLOGY REPORT (SQ) ---
EXAM DESCRIPTION: U/S THORACENTESIS WITH IMAGING COMPLETED DATE/TIME: 11/07/2019 1:43 pm REASON FOR STUDY: pleural effusion COMPARISON: None. RADIATION DOSE: None. LIMITATIONS: None. PROCEDURE: The procedure, risks, benefits, and alternatives were discussed with the patient and the patient's family who then gave written consent. The right chest wall was then marked utilizing sonog raphic guidance and a time-out was performed to document correct marking verification. The area around the selected percutaneous access site was then prepped and draped with 2% chlorhexidi ne utilizing standard sterile technique. After that, the selected access site was infiltrated with 5 ml of 1% lidocaine. A 5 Fr Signal Patternsesis Catheter needle was then introduced into the pleural space and the fluid was aspirated. After the fluid was aspirated, the catheter was removed and the entry s ite was covered with a sterile bandage. No immediate complications were noted. Images acquired during the procedure were stored on PACS. The patient tolerated the procedure with local anesthesia. At the end of the procedure the patient's condition was unchanged from the preprocedural baseline. Documentation of cput-su-xifu time the proceduralist spent monitoring the patient: 15 minutes. FINDINGS: ENTRY SITE: Posterior right chest. FLUID VOLUME: 1100 mL FLUID ANALYSIS: Straw-colored. OTHER: Fluid was collected for analysis. IMPRESSION: Successful ultrasound-guided thoracentesis. COMMENT: Patient medication list reviewed: Yes- Quality ID# [id number]:Eligible professional attests to doc umenting in the medical record they obtained, updated, or reviewed the patient's current medications. TECHNICAL DOCUMENTATION: JOB ID: [id number] 2010 [employer]- All Rights Reserved Reading location - IP/workstation name: [email or web address]
--- NOTE | 2019-11-07 16:36 | RADIOLOGY REPORT (SQ) ---
EXAM DESCRIPTION: CHEST SINGLE VIEW COMPLETED DATE/TIME: 11/07/2019 3:32 pm REASON FOR STUDY: S/P RT THORACENTESIS- 2 HOUR FILM COMPARISON: AP view of the chest from 11/07/2019 1343 hours. EXAM PARAMETERS: NUMBER OF VIEWS: One view. TECHNIQUE: An AP view of the chest was obtained. RADIATION DOSE: NA LIMITATIONS: None. FINDINGS: LUNGS AND PLEURA: No postprocedural hematoma. Otherwise unchanged radiographic appearance of the lungs and pleura. MEDIASTINUM AND HILAR STRUCTURES: Stable mediastinal and hilar contours. HEART AND VASCULAR STRUCTURES: Stable cardiomegaly. BONES: No acute findings. HARDWARE: Left subclavian vein approach triple lead ICD. OTHER: No other finding. IMPRESSION: No postprocedural pneumothorax. TECHNICAL DOCUMENTATION: JOB ID: [id number] 2010 [employer]- All Rights Reserved Reading location - IP/workstation name: [email or web address]
--- NOTE | 2019-11-07 20:01 | PDOC PROGRESS REPORT ---
Subjective Progress Note for:: 11/07/19 Subjective:: Patient seen by the bedside she underwent thoracentesis, 1100cc of fluid was removed from the chest, she feels much better, the chest x-ray that was done showed near clearing of the pleural effusion, she has had a total of 2100 ml of fluid removed , Hopefully discharge home on Thursday Reason For Visit: HEART FAILURE Physical Exam Vital Signs: Temp Pulse Resp BP Pulse Ox 97.4 F 75 24 H 107/57 L 96 11/07/19 03:34 11/07/19 13:58 11/07/19 03:56 11/07/19 03:34 11/07/19 03:56 Intake & Output 11/06/19 11/07/19 11/08/19 06:59 06:59 06:59 Intake Total 1657 1752 Output Total 2500 2350 1000 Balance -843 -598 -1000 Weight 96.6 kg General appearance: PRESENT: no acute distress Eye exam: PRESENT: PERRLA Respiratory exam: PRESENT: clear to auscultation abdi Cardiovascular exam: PRESENT: +S1, +S2 GI/Abdominal exam: PRESENT: soft Neurological exam: PRESENT: alert Results Laboratory Results: 11/07/19 09:30 11/07/19 09:30 11/07/19 11/07/19 09:30 09:30 WBC 3.6 L RBC 4.01 Hgb 11.2 L Hct 34.3 L MCV 86 MCH 27.9 MCHC 32.6 RDW 19.1 H Plt Count 190 Seg Neutrophils % 71.4 Sodium 137.9 Potassium 4.4 Chloride 105 Carbon Dioxide 23 Anion Gap 10 BUN 30 H Creatinine 1.83 H Est GFR ( Amer) 36 L Glucose 120 H Calcium 8.6 Total Bilirubin 0.6 AST 20 Alkaline Phosphatase 143 H Total Protein 5.4 L Albumin 2.6 L 11/04/19 02:55 Raza Catheter Urine Culture - Final Klebsiella Pneumoniae 10/30/19 10/30/19 10/30/19 02:44 03:48 03:48 Creatine Kinase CK-MB (CK-2) Troponin I Cancelled 0.053 NT-Pro-B Natriuret Pep 12752 H 10/30/19 10/30/19 10/30/19 03:48 03:48 11:09 Creatine Kinase 175 H 137 H CK-MB (CK-2) 2.65 Troponin I Cancelled NT-Pro-B Natriuret Pep 10/30/19 10/30/19 10/30/19 11:09 19:16 19:16 Creatine Kinase 159 H CK-MB (CK-2) 3.05 4.13 Troponin I 0.046 0.039 NT-Pro-B Natriuret Pep 11/01/19 06:08 Creatine Kinase CK-MB (CK-2) Troponin I NT-Pro-B Natriuret Pep 55012 H Impressions: Thoracentesis Ultrasound 11/07/19 00:00 IMPRESSION: Successful ultrasound-guided thoracentesis. Chest X-Ray 11/07/19 15:20 IMPRESSION: No postprocedural pneumothorax. 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
[2019-11-07] MEDS: ATORVASTATIN CALCIUM 80 MG TABLET PO SCH (21:41)
[2019-11-08] MEDS: ZOLPIDEM TARTRATE 5 MG TABLET PO PRN ×2 (00:10→23:33)
[2019-11-08] MEDS: TRAMADOL HCL 50 MG TABLET PO PRN ×2 (00:10→23:34)
[2019-11-08] MEDS: SACUBITRIL/VALSARTAN 97 MG/103 MG TABLET PO SCH ×3 (02:41→22:11)
[2019-11-08] MEDS: HEPARIN SOD (PORCINE) 5,000 UNIT/ML 1 ML VIAL SUBCUT SCH ×4 (06:12→22:12)
[2019-11-08] MEDS: HYDRALAZINE HCL 10 MG TABLET PO SCH ×3 (06:12→22:12)
[2019-11-08] MEDS: ISOSORBIDE DINITRATE 20 MG TABLET PO SCH ×3 (06:12→22:11)
[2019-11-08 09:12] LABS: ABSOLUTE EOSINOPHILS # (AUTO) 0.2 10^3/uL (0.0-0.6); ABSOLUTE LYMPHOCYTES (AUTO) 0.5 10^3/uL (0.5-4.7); ABSOLUTE MONOCYTES (AUTO) 0.3 10^3/uL (0.1-1.4); ABSOLUTE NEUT (AUTO) 2.1 10^3/uL (1.7-8.2); HEMATOCRIT 32.1 % (36.0-47.0); HEMOGLOBIN 10.5 g/dL (12.0-15.5); LYMPHOCYTES % (AUTO) 14.9 % (13-45); MEAN CORPUSCULAR HGB CONC 32.7 g/dL (32.0-36.0); MEAN CORPUSCULAR VOLUME 86 fl (80-97); MONOCYTES % (AUTO) 9.8 % (3-13); PLATELET COUNT 174 10^3/uL (150-450); RED BLOOD COUNT 3.75 10^6/uL (3.72-5.28); SEGMENTED NEUTROPHILS % (AUTO) 68.3 % (42-78); TOTAL CELLS COUNTED % (AUTO) 100 %
[2019-11-08 09:33] LABS: ALBUMIN 2.2 g/dL (3.5-5.0); ALKALINE PHOSPHATASE 130 U/L (38-126); ASPARTATE AMINO TRANSFERASE 22 U/L (14-36); BILIRUBIN,TOTAL 0.5 mg/dL (0.2-1.3); BLOOD UREA NITROGEN 30 mg/dL (7-20); CALCIUM 8.1 mg/dL (8.4-10.2); CARBON DIOXIDE 27 mmol/L (22-30); CHLORIDE 106 mmol/L (98-107); POTASSIUM 4.3 mmol/L (3.6-5.0); TOTAL PROTEIN 4.6 g/dL (6.3-8.2)
[2019-11-08 09:40] LABS: ANION GAP 4 (5-19); GLUCOSE 67 mg/dL (75-110)
[2019-11-08] MEDS: LUBIPROSTONE 24 MCG CAPSULE PO SCH ×2 (09:57→22:13)
[2019-11-08] MEDS: CHOLECALCIFEROL (D3) 400 UNIT TABLET PO SCH (09:57)
[2019-11-08] MEDS: TORSEMIDE 20 MG TABLET PO SCH (09:57)
[2019-11-08] MEDS: SPIRONOLACTONE 25 MG TABLET PO SCH (09:57)
[2019-11-08] MEDS: CARVEDILOL 6.25 MG TABLET PO SCH ×2 (09:58→22:11)
[2019-11-08] MEDS: PANTOPRAZOLE SODIUM 40 MG TABLET.DR PO SCH (09:59)
[2019-11-08] MEDS: ALLOPURINOL 100 MG TABLET PO SCH (09:59)
[2019-11-08] MEDS: DIGOXIN 0.125 MG TABLET PO SCH (10:01)
[2019-11-08] MEDS: CALCITRIOL 0.25 MCG CAPSULE PO SCH (10:01)
[2019-11-08] MEDS: FERROUS SULFATE 325 MG TABLET PO SCH (10:05)
--- NOTE | 2019-11-08 21:07 | PDOC PROGRESS REPORT ---
Subjective Progress Note for:: 11/08/19 Subjective:: Patient is alert oriented, she is stable be discharged home in the morning Reason For Visit: HEART FAILURE Physical Exam Vital Signs: Temp Pulse Resp BP Pulse Ox 98.1 F 68 20 98/57 L 98 11/08/19 16:00 11/08/19 16:00 11/08/19 16:00 11/08/19 16:00 11/08/19 16:00 Intake & Output 11/07/19 11/08/19 11/09/19 06:59 06:59 06:59 Intake Total 1752 260 Output Total 2350 1700 700 Balance -598 -1440 -700 Weight 96.6 kg 96.2 kg General appearance: PRESENT: no acute distress Eye exam: PRESENT: PERRLA Respiratory exam: PRESENT: clear to auscultation abdi Cardiovascular exam: PRESENT: +S1, +S2 GI/Abdominal exam: PRESENT: soft Results Laboratory Results: 11/08/19 09:01 11/08/19 09:01 11/08/19 11/08/19 09:01 09:01 WBC 3.0 L RBC 3.75 Hgb 10.5 L Hct 32.1 L MCV 86 MCH 28.0 MCHC 32.7 RDW 19.0 H Plt Count 174 Seg Neutrophils % 68.3 Sodium 136.9 L Potassium 4.3 Chloride 106 Carbon Dioxide 27 Anion Gap 4 L BUN 30 H Creatinine 1.81 H Est GFR ( Amer) 37 L Glucose 67 L Calcium 8.1 L Total Bilirubin 0.5 AST 22 Alkaline Phosphatase 130 H Total Protein 4.6 L Albumin 2.2 L 10/30/19 10/30/19 10/30/19 02:44 03:48 03:48 Creatine Kinase CK-MB (CK-2) Troponin I Cancelled 0.053 NT-Pro-B Natriuret Pep 11402 H 10/30/19 10/30/19 10/30/19 03:48 03:48 11:09 Creatine Kinase 175 H 137 H CK-MB (CK-2) 2.65 Troponin I Cancelled NT-Pro-B Natriuret Pep 10/30/19 10/30/19 10/30/19 11:09 19:16 19:16 Creatine Kinase 159 H CK-MB (CK-2) 3.05 4.13 Troponin I 0.046 0.039 NT-Pro-B Natriuret Pep 11/01/19 06:08 Creatine Kinase CK-MB (CK-2) Troponin I NT-Pro-B Natriuret Pep 96152 H Impressions: Thoracentesis Ultrasound 11/07/19 00:00 IMPRESSION: Successful ultrasound-guided thoracentesis. Chest X-Ray 11/07/19 15:20 IMPRESSION: No postprocedural pneumothorax. 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
[2019-11-08] MEDS: ATORVASTATIN CALCIUM 80 MG TABLET PO SCH (22:11)
[2019-11-08] MEDS: WARFARIN SODIUM 5 MG TABLET PO SCH (22:12)
[2019-11-08] MEDS: DIPHENHYDRAMINE HCL 25 MG CAPSULE PO PRN ×2 (23:33)
[2019-11-09] MEDS: ISOSORBIDE DINITRATE 20 MG TABLET PO SCH ×2 (05:40→19:03)
[2019-11-09] MEDS: HYDRALAZINE HCL 10 MG TABLET PO SCH ×2 (05:40→19:03)
[2019-11-09] MEDS: HEPARIN SOD (PORCINE) 5,000 UNIT/ML 1 ML VIAL SUBCUT SCH ×2 (05:41→19:03)
[2019-11-09 05:56] LABS: INTERNATIONAL RATION (INR) 1.12; PROTHROMBIN TIME 14.5 SEC (11.4-15.4)
[2019-11-09 06:16] LABS: ABSOLUTE EOSINOPHILS # (AUTO) 0.2 10^3/uL (0.0-0.6); ABSOLUTE LYMPHOCYTES (AUTO) 0.4 10^3/uL (0.5-4.7); ABSOLUTE MONOCYTES (AUTO) 0.2 10^3/uL (0.1-1.4); BASOPHILS % (AUTO) 0.8 % (0-2); EOSINOPHILS % (AUTO) 5.6 % (0-6); HEMATOCRIT 32.3 % (36.0-47.0); HEMOGLOBIN 10.7 g/dL (12.0-15.5); LYMPHOCYTES % (AUTO) 15.8 % (13-45); MEAN CORPUSCULAR HEMOGLOBIN 28.3 pg (27.0-33.4); MEAN CORPUSCULAR VOLUME 86 fl (80-97); MONOCYTES % (AUTO) 8.2 % (3-13); PLATELET COUNT 178 10^3/uL (150-450); RED BLOOD COUNT 3.77 10^6/uL (3.72-5.28); RED CELL DISTRIBUTION WIDTH 19.3 % (11.5-14.0); SEGMENTED NEUTROPHILS % (AUTO) 69.6 % (42-78); TOTAL CELLS COUNTED % (AUTO) 100 %; WHITE BLOOD COUNT 2.8 10^3/uL (4.0-10.5)
[2019-11-09 06:21] LABS: ALBUMIN 2.6 g/dL (3.5-5.0); ALKALINE PHOSPHATASE 132 U/L (38-126); ASPARTATE AMINO TRANSFERASE 23 U/L (14-36); BILIRUBIN,DIRECT 0.1 mg/dL (0.0-0.4); BILIRUBIN,TOTAL 0.5 mg/dL (0.2-1.3); BLOOD UREA NITROGEN 32 mg/dL (7-20); CALCIUM 8.2 mg/dL (8.4-10.2); GLUCOSE 70 mg/dL (75-110); POTASSIUM 4.5 mmol/L (3.6-5.0); TOTAL PROTEIN 5.2 g/dL (6.3-8.2)
[2019-11-09 06:26] LABS: CARBON DIOXIDE 27 mmol/L (22-30); CHLORIDE 106 mmol/L (98-107)
[2019-11-09 06:29] LABS: ANION GAP 4 (5-19)
--- NOTE | 2019-11-09 08:26 | PDOC DISCHARGE SUMMARY ---
Impression - Admit/DC Date/PCP Admission Date/Primary Care Provider: 10/30/19 05:52 VU GUZMAN MD Discharge Date: 11/09/19 - Discharge Diagnosis (1) Acute combined systolic (congestive) and diastolic (congestive) heart failure Is this a current diagnosis for this admission?: Yes (2) CKD (chronic kidney disease) stage 3, GFR 30-59 ml/min Is this a current diagnosis for this admission?: Yes (3) Cardiac defibrillator in situ Is this a current diagnosis for this admission?: Yes - Additional Information Resuscitation Status: Full Code Referrals: VU GUZMAN MD [Primary Care Provider] - 11/15/19 3:45 pm Home Medications: RX: Allopurinol [Zyloprim 100 mg Tablet] 100 mg PO DAILY 10/30/19 RX: Amlodipine Besylate [Norvasc 10 mg Tablet] 10 mg PO DAILY 10/30/19 RX: Atorvastatin Calcium [Lipitor 80 mg Tablet] 80 mg PO QHS 10/30/19 RX: Bumetanide [Bumex 1 mg Tablet] 3 mg PO DAILY 10/30/19 RX: Calcitriol [Rocaltrol 0.25 mcg Capsule] 0.25 mcg PO DAILY 10/30/19 RX: Cholecalciferol (Vitamin D3) [Vitamin D3 400 Unit Tablet] 400 unit PO DAILY 10/30/19 RX: Ferrous Sulfate [Feosol 325 mg Tablet] 325 mg PO DAILY 10/30/19 RX: Furosemide [Lasix 80 mg Tablet] 80 mg PO Q8 10/30/19 RX: Isosorbide Dinitrate [Isordil Titradose 20 mg Tablet] 60 mg PO Q8 10/30/19 RX: Lubiprostone [Amitiza 24 Mcg Capsule] 24 mcg PO Q12 10/30/19 RX: Sacubitril/Valsartan [Entresto 97 mg/103 mg Tablet] 1 tab PO Q12 10/30/19 RX: Tramadol HCl [Ultram 50 mg Tablet] 50 mg PO Q8HP PRN 10/30/19 RX: Zolpidem Tartrate [Ambien] 10 mg PO QHS 10/30/19 RX: Diphenhydramine HCl [Benadryl] 50 mg PO Q8HP PRN 10/31/19 RX: Omeprazole 40 mg PO DAILY 10/31/19 RX: Warfarin Sodium [Coumadin 7.5 mg Tablet] 7.5 mg PO TUT@2200 10/31/19 History of Present Illiness History of Present Illness: BERONICA YEUNG is a 44 year old female, She presented with shortness of breath, she was found to have congestive heart failure Hospital Course Hospital Course: Patient was admitted for the management of decompensated congestive heart failure, she has a history of chronic systolic and diastolic heart failure, she underwent thoracentesis, twice, a total of 2100 ml of fluid was removed from the lung, patient felt much better.. She has very advanced cardiomyopathy, she is status post pacemaker AICD implantation, she is medically optimized with beta- bear, Entresto. She also have obstructive sleep apnea, requiring CPAP at home for sleep. She was seen in consultation by Dr. Dozier, cardiology, Physical Exam Vital Signs: Temp Pulse Resp BP Pulse Ox 97.8 F 71 20 128/73 H 100 11/09/19 03:50 11/09/19 03:50 11/09/19 03:50 11/09/19 03:50 11/09/19 03:50 Intake & Output 11/08/19 11/09/19 11/10/19 06:59 06:59 06:59 Intake Total 260 780 Output Total 1700 1100 Balance -1440 -320 Weight 96.2 kg 95.9 kg General appearance: PRESENT: no acute distress Eye exam: PRESENT: PERRLA Respiratory exam: PRESENT: clear to auscultation abdi GI/Abdominal exam: PRESENT: soft Neurological exam: PRESENT: alert, CN II-XII grossly intact Results Laboratory Results: WBC 2.8 10^3/uL (4.0-10.5) L 11/09/19 05:36 RBC 3.77 10^6/uL (3.72-5.28) 11/09/19 05:36 Hgb 10.7 g/dL (12.0-15.5) L 11/09/19 05:36 Hct 32.3 % (36.0-47.0) L 11/09/19 05:36 MCV 86 fl (80-97) 11/09/19 05:36 MCH 28.3 pg (27.0-33.4) 11/09/19 05:36 MCHC 33.0 g/dL (32.0-36.0) 11/09/19 05:36 RDW 19.3 % (11.5-14.0) H 11/09/19 05:36 Plt Count 178 10^3/uL (150-450) 11/09/19 05:36 Lymph % (Auto) 15.8 % (13-45) 11/09/19 05:36 [place] % (Auto) 8.2 % (3-13) 11/09/19 05:36 Eos % (Auto) 5.6 % (0-6) 11/09/19 05:36 Baso % (Auto) 0.8 % (0-2) 11/09/19 05:36 Absolute Neuts (auto) 2.0 10^3/uL (1.7-8.2) 11/09/19 05:36 Absolute Lymphs (auto) 0.4 10^3/uL (0.5-4.7) L 11/09/19 05:36 Absolute Monos (auto) 0.2 10^3/uL (0.1-1.4) 11/09/19 05:36 Absolute Eos (auto) 0.2 10^3/uL (0.0-0.6) 11/09/19 05:36 Absolute Basos (auto) 0.0 10^3/uL (0.0-0.2) 11/09/19 05:36 Total Counted 100 10/30/19 02:44 Seg Neutrophils % 69.6 % (42-78) 11/09/19 05:36 Seg Neuts % (Manual) 77 % (42-78) 10/30/19 02:44 Lymphocytes % (Manual) 11 % (13-45) L 10/30/19 02:44 Atypical Lymphs % 1 % (0) 10/30/19 02:44 Monocytes % (Manual) 9 % (3-13) 10/30/19 02:44 Eosinophils % (Manual) 2 % (0-6) 10/30/19 02:44 Basophils % (Manual) 0 % (0-2) 10/30/19 02:44 Abs Neuts (Manual) 3.9 10^3/uL (1.7-8.2) 10/30/19 02:44 Abs Lymphs (Manual) 0.6 10^3/uL (0.5-4.7) 10/30/19 02:44 Abs Monocytes (Manual) 0.5 10^3/uL (0.1-1.4) 10/30/19 02:44 Absolute Eos (Manual) 0.1 10^3/uL (0.0-0.6) 10/30/19 02:44 Abs Basophils (Manual) 0.0 10^3/uL (0.0-0.2) 10/30/19 02:44 Toxic Granulation SLIGHT 10/30/19 02:44 Toxic Vacuolation PRESENT 10/30/19 02:44 Platelet Comment ADEQUATE 10/30/19 02:44 Poikilocytosis 2+ 10/30/19 02:44 Anisocytosis 2+ 10/30/19 02:44 Tear Drop Cells SLIGHT 10/30/19 02:44 [place] Cells 2+ 10/30/19 02:44 Schistocytes SLIGHT 10/30/19 02:44 PT 14.5 SEC (11.4-15.4) 11/09/19 05:36 INR 1.12 11/09/19 05:36 Sodium 137.1 mmol/L (137-145) 11/09/19 05:36 Potassium 4.5 mmol/L (3.6-5.0) 11/09/19 05:36 Chloride 106 mmol/L (98-107) 11/09/19 05:36 Carbon Dioxide 27 mmol/L (22-30) 11/09/19 05:36 Anion Gap 4 (5-19) L 11/09/19 05:36 BUN 32 mg/dL (7-20) H 11/09/19 05:36 Creatinine 2.01 mg/dL (0.52-1.25) H 11/09/19 05:36 Est GFR ( Amer) 33 (>60) L 11/09/19 05:36 Est GFR (Non-Af Amer) Cancelled 10/30/19 02:44 Est GFR (MDRD) Non-Af 27 (>60) L 11/09/19 05:36 Glucose 70 mg/dL (75-110) L 11/09/19 05:36 POC Glucose 147 mg/dL (70-110) H 11/08/19 09:56 Calcium 8.2 mg/dL (8.4-10.2) L 11/09/19 05:36 Total Bilirubin 0.5 mg/dL (0.2-1.3) 11/09/19 05:36 Direct Bilirubin 0.1 mg/dL (0.0-0.4) 11/09/19 05:36 Neonat Total Bilirubin Not Reportable 11/09/19 05:36 Neonat Direct Bilirubin Not Reportable 11/09/19 05:36 Neonat Indirect Bili Not Reportable 11/09/19 05:36 AST 23 U/L (14-36) 11/09/19 05:36 ALT 12 U/L (<35) 11/09/19 05:36 Alkaline Phosphatase 132 U/L (38-126) H 11/09/19 05:36 Lactate Dehydrogenase 229 U/L (120-246) 11/06/19 19:50 Creatine Kinase 159 U/L (30-135) H 10/30/19 19:16 CK-MB (CK-2) 4.13 ng/mL (<4.55) 10/30/19 19:16 Troponin I 0.039 ng/mL 10/30/19 19:16 NT-Pro-B Natriuret Pep 46771 pg/mL (<125) H 11/01/19 06:08 Total Protein 5.2 g/dL (6.3-8.2) L 11/09/19 05:36 Albumin 2.6 g/dL (3.5-5.0) L 11/09/19 05:36 EGFR Cancelled 10/30/19 02:44 Urine Color YELLOW 11/04/19 23:45 Urine Appearance SLIGHTLY-CLOUDY 11/04/19 23:45 Urine pH 6.0 (5.0-9.0) 11/04/19 23:45 Ur Specific [place] 1.011 11/04/19 23:45 Urine Protein 100 mg/dL (NEGATIVE) H 11/04/19 23:45 Urine Glucose (UA) NEGATIVE mg/dL (NEGATIVE) 11/04/19 23:45 Urine Ketones NEGATIVE mg/dL (NEGATIVE) 11/04/19 23:45 Urine Blood SMALL (NEGATIVE) H 11/04/19 23:45 Urine Nitrite NEGATIVE (NEGATIVE) 11/04/19 23:45 Urine Bilirubin NEGATIVE (NEGATIVE) 02/07/20 23:45 Urine Urobilinogen NEGATIVE mg/dL (<2.0) 11/04/19 23:45 Ur Leukocyte Esterase LARGE (NEGATIVE) H 11/04/19 23:45 Urine WBC (Auto) >182 /HPF 11/04/19 23:45 Urine RBC (Auto) 41 /HPF 11/04/19 23:45 Urine Bacteria (Auto) 1+ /HPF 11/04/19 02:55 Urine WBC Clumps MANY /HPF 11/04/19 23:45 Squamous Epi Cells Auto 5 /HPF 11/04/19 23:45 U Non-Squamous Epis Auto 2 /HPF 11/04/19 23:45 Urine Mucus (Auto) RARE /LPF 11/04/19 23:45 Urine Ascorbic Acid 40 (NEGATIVE) H 11/04/19 23:45 Fluid Total Protein 1.7 g/dL (.) 11/04/19 09:06 Fluid Albumin 1.0 g/dL (Not Estab.) 11/04/19 09:06 Fluid LDH 97 IU/L (.) 11/04/19 09:06 Stool Occult Blood NEGATIVE (NEGATIVE) 11/04/19 23:45 10/30/19 10/30/19 10/30/19 02:44 03:48 03:48 CK-MB (CK-2) Troponin I Cancelled 0.053 NT-Pro-B Natriuret Pep [id number] H 10/30/19 10/30/19 10/30/19 03:48 11:09 19:16 CK-MB (CK-2) 2.65 3.05 4.13 Troponin I Cancelled 0.046 0.039 NT-Pro-B Natriuret Pep 11/01/19 06:08 CK-MB (CK-2) Troponin I NT-Pro-B Natriuret Pep [id number] H Impressions: Chest X-Ray 10/30/19 02:46 IMPRESSION: Worsening opacification in the right lung base likely worsening right pleural effusion and adjacent right basilar atelectasis and/or pneumonia. Chest X-Ray 11/02/19 17:33 IMPRESSION: LARGE RIGHT PLEURAL EFFUSION. NO CHANGE. Chest X-Ray 11/04/19 09:09 IMPRESSION: No pneumothorax post right thoracentesis. Decreased right pleural effusion with mild residual effusion and basilar atelectasis. Chest X-Ray 11/04/19 11:09 IMPRESSION: No pneumothorax post right thoracentesis. Thoracentesis Ultrasound 11/04/19 19:37 IMPRESSION: SUCCESSFUL THORACENTESIS USING ULTRASOUND GUIDANCE. Chest X-Ray 11/07/19 00:00 IMPRESSION: No postprocedural pneumothorax. Thoracentesis Ultrasound 11/07/19 00:00 IMPRESSION: Successful ultrasound-guided thoracentesis. Chest X-Ray 11/07/19 15:20 IMPRESSION: No postprocedural pneumothorax. Stroke Is this a Stroke Patient?: No Acute Heart Failure - Is this a Heart Failure Patient?: No
[2019-11-09 11:46] VITALS: BP 98/57
[2019-11-09] MEDS: LUBIPROSTONE 24 MCG CAPSULE PO SCH (17:09)
[2019-11-09] MEDS: SPIRONOLACTONE 25 MG TABLET PO SCH (17:09)
[2019-11-09] MEDS: CARVEDILOL 6.25 MG TABLET PO SCH (19:01)
[2019-11-09] MEDS: TORSEMIDE 20 MG TABLET PO SCH (19:01)
[2019-11-09] MEDS: CALCITRIOL 0.25 MCG CAPSULE PO SCH (19:02)
[2019-11-09] MEDS: FERROUS SULFATE 325 MG TABLET PO SCH (19:02)
[2019-11-09] MEDS: SACUBITRIL/VALSARTAN 97 MG/103 MG TABLET PO SCH (19:02)
[2019-11-09] MEDS: PANTOPRAZOLE SODIUM 40 MG TABLET.DR PO SCH (19:02)
[2019-11-09] MEDS: DIGOXIN 0.125 MG TABLET PO SCH (19:02)
[2019-11-09] MEDS: CHOLECALCIFEROL (D3) 400 UNIT TABLET PO SCH (19:03)
[2019-11-09] MEDS: ALLOPURINOL 100 MG TABLET PO SCH (19:03)
== END 2019-11-09 22:46 | disposition home health service (06) | DRG 291 ==
LOC: ER 02:32 → EH 05:52 → 3S 07:58
PROVIDERS: ADMIT Internal Medicine; ATTEND Internal Medicine
PROC: 0W993ZX Drainage of Right Pleural Cavity, Percutaneous Approach, Diagnostic (ICD-10-PCS; principal; 2019-11-04)
PROC: 0W993ZX Drainage of Right Pleural Cavity, Percutaneous Approach, Diagnostic (ICD-10-PCS; 2019-11-07)
DX: I13.0 Hypertensive heart and chronic kidney disease with heart failure and stage 1 through stage 4 chronic kidney disease, or unspecified chronic kidney disease (principal); I50.43 Acute on chronic combined systolic (congestive) and diastolic (congestive) heart failure; N18.3 Chronic kidney disease, stage 3 (moderate); E11.22 Type 2 diabetes mellitus with diabetic chronic kidney disease; E11.65 Type 2 diabetes mellitus with hyperglycemia; E11.21 Type 2 diabetes mellitus with diabetic nephropathy; G89.4 Chronic pain syndrome; I25.10 Atherosclerotic heart disease of native coronary artery without angina pectoris; K21.9 Gastro-esophageal reflux disease without esophagitis; I25.2 Old myocardial infarction; Z95.810 Presence of automatic (implantable) cardiac defibrillator; Z91.11 Patient's noncompliance with dietary regimen
CPT/HCPCS: 32555; 36415; 51702; 71045; 71046; 80048; 80053; 81001; 82042; 82272; 82550; 82553; 82962; 83615; 83880; 84157; 84484; 85025; 85027; 85610; 87086; 87088; 87186; 93005; 93010; 93306; 94660; 96374; 96375; 99291; J1200; J1644; J1940; J2270; J3490

== ENCOUNTER 2020-05-20 11:42 | Inpatient (IN) | payer MEDICARE, MEDICAID ==
[2020-05-20 12:31] LABS: VENOUS BLOOD BASE EXCESS -5.6 mmol/L; VENOUS BLOOD HCO3 17.6 mmol/L (20-32); VENOUS BLOOD PCO2 29.1 mmHg (35-63); VENOUS BLOOD PH 7.4 (7.30-7.42)
[2020-05-20 12:39] LABS: ABSOLUTE BASOPHILS # (AUTO) 0.1 10^3/uL (0.0-0.2); ABSOLUTE LYMPHOCYTES (AUTO) 0.6 10^3/uL (0.5-4.7); ABSOLUTE MONOCYTES (AUTO) 0.4 10^3/uL (0.1-1.4); ABSOLUTE NEUT (AUTO) 4.3 10^3/uL (1.7-8.2); BASOPHILS % (AUTO) 1.1 % (0-2); EOSINOPHILS % (AUTO) 0.8 % (0-6); HEMATOCRIT 47.3 % (36.0-47.0); HEMOGLOBIN 15.4 g/dL (12.0-15.5); LYMPHOCYTES % (AUTO) 11.1 % (13-45); MEAN CORPUSCULAR HEMOGLOBIN 27.5 pg (27.0-33.4); MEAN CORPUSCULAR HGB CONC 32.5 g/dL (32.0-36.0); MEAN CORPUSCULAR VOLUME 85 fl (80-97); MONOCYTES % (AUTO) 7.2 % (3-13); PLATELET COUNT 289 10^3/uL (150-450); RED BLOOD COUNT 5.58 10^6/uL (3.72-5.28); RED CELL DISTRIBUTION WIDTH 19.2 % (11.5-14.0); SEGMENTED NEUTROPHILS % (AUTO) 79.8 % (42-78); TOTAL CELLS COUNTED % (AUTO) 100 %; WHITE BLOOD COUNT 5.3 10^3/uL (4.0-10.5)
[2020-05-20 12:45] LABS: ALBUMIN 2.8 g/dL (3.5-5.0); ALKALINE PHOSPHATASE 164 U/L (38-126); ANION GAP 6 (5-19); ASPARTATE AMINO TRANSFERASE 21 U/L (14-36); BILIRUBIN,DIRECT 0.1 mg/dL (0.0-0.4); BILIRUBIN,TOTAL 0.9 mg/dL (0.2-1.3); BLOOD UREA NITROGEN 37 mg/dL (7-20); CALCIUM 8.6 mg/dL (8.4-10.2); CARBON DIOXIDE 21 mmol/L (22-30); CHLORIDE 109 mmol/L (98-107); CREATINE KINASE 245 U/L (30-135); GLUCOSE 154 mg/dL (75-110); POTASSIUM 3.8 mmol/L (3.6-5.0); TOTAL PROTEIN 5.3 g/dL (6.3-8.2)
[2020-05-20 12:57] LABS: CREATINE KINASE MB 5.41 ng/mL (<4.55)
[2020-05-20 13:05] LABS: TROPONIN I 0.078 ng/mL
--- NOTE | 2020-05-20 13:16 | RADIOLOGY REPORT (SQ) ---
EXAM DESCRIPTION: CHEST SINGLE VIEW IMAGES COMPLETED DATE/TIME: 05/20/2020 12:22 pm REASON FOR STUDY: SOB COMPARISON: Chest radiograph 11/07/2019 NUMBER OF VIEWS: One view. TECHNIQUE: Single frontal radiographic view of the chest acquired. LIMITATIONS: None. FINDINGS: LUNGS AND PLEURA: A moderate right pleural effusion is present. Patchy opacity over the r ight lung apex. There may also be a small left pleural effusion. No definite left-sided pulmonary c onsolidation. MEDIASTINUM AND HILAR STRUCTURES: No masses. Contour normal. HEART AND VASCULAR STRUCTURES: Moderate cardiomegaly. Left chest wall cardiac pacing device is uncha nged. BONES: No acute findings. OTHER: No other significant finding. IMPRESSION: Interval development of moderate size right pleural effusion and possible small left ple ural effusion. Patchy opacity over the right lung apex as well. Findings may be on the basis of con gestive heart failure, though an infectious etiology could appear similar. Moderate cardiomegaly. TECHNICAL DOCUMENTATION: JOB ID: [id number] 2010 [employer]- All Rights Reserved Reading location - IP/workstation name: [email or web address]
[2020-05-20] MEDS ORDERED: DIPHENHYDRAMINE HCL 50 MG/ML VIAL IV ONE (14:01)
[2020-05-20] MEDS ORDERED: MORPHINE SULFATE 10 MG/ML INJ IV ONE (14:01)
[2020-05-20] MEDS ORDERED: FUROSEMIDE INJ/PF 40 MG/4 ML SDV IV ONE (14:01)
[2020-05-20 14:05] LABS: PROTHROMBIN TIME 14.4 SEC (11.4-15.4)
--- NOTE | 2020-05-20 14:50 | ER Document Report ---
ED General - General Chief Complaint: Chest Pain Stated Complaint: CHEST PAIN Time Seen by Provider: 05/20/20 12:23 TRAVEL OUTSIDE OF THE [place] IN LAST 30 DAYS: No - HPI Notes: Patient is a 45-year-old female with an extensive cardiac history presents to the emergency department for evaluation of right-sided chest pain, shortness of breath, tightness. She states it has been ongoing for the last several weeks. She states it has been getting gradually worse. She is dyspneic with exertion. She states that she feels that she is "filled up with fluid." She states that she feels like she is been gaining weight, but her scale is broken. She states she always takes her Lasix and her Bumex, but admits that she takes her medications "the best she can" because she cannot afford to take all of them. She is not able to tell me all of her medications at this time. - Related Data Allergies/Adverse Reactions: hydrocodone bitartrate [From Vicodin] Allergy (Verified 05/20/20 12:17) Hives hydromorphone HCl [From Dilaudid] Allergy (Verified 05/20/20 12:17) Hives levofloxacin [From Levaquin] Allergy (Verified 05/20/20 12:17) Hives oxycodone HCl [From Percocet] Allergy (Verified 05/20/20 12:17) Hives Past Medical History - General Information source: Patient, [facility] Records - Social History Smoking Status: Never Smoker Family History: Reviewed & Not Pertinent, Hypertension Patient has homicidal ideation: No - Past Medical History Cardiac Medical History: Reports: Hx Congestive Heart Failure - Chronic systolic and diastolic heart failure, Hx Coronary Artery Disease, Hx Heart Attack - STENTS/DEFIBRILLATOR/PACEMAKER, Hx Hypertension, Hx Pulmonary Embolism Pulmonary Medical History: Reports: Hx COPD, Hx Pneumonia Denies: Hx Asthma, Hx Bronchitis, Hx Tuberculosis Neurological Medical History: Denies: Hx Cerebrovascular Accident, Hx Seizures Endocrine Medical History: Reports: Hx Diabetes Mellitus Type 2 - non compliant (pt has snacks in her suitcase etc) Renal/ Medical History: Reports: Hx Renal Insufficiency. Denies: Hx Peritoneal Dialysis GI Medical History: Reports: Hx Gastroesophageal Reflux Disease Musculoskeletal Medical History: Denies Hx Arthritis Skin Medical History: Reports Hx Cellulitis - Left upper extremity cellulitis week and a half ago Psychiatric Medical History: Reports: Hx Depression Past Surgical History: Reports: Hx Cardiac Catheterization - stent x1, Hx Cardiac Surgery - pace/defib, Hx Coronary Stent, Hx Internal Defibrillator, Hx Pacemaker - AICD, Other - Left-sided biventricular [employer] defibrillator 02/26/2018, Lui Milner. Denies: Hx Hysterectomy - Immunizations Hx Diphtheria, Pertussis, Tetanus Vaccination: No Hx Pneumococcal Vaccination: 06/28/13 Review of Systems - Review of Systems Constitutional: See HPI Cardiovascular: See HPI Respiratory: See HPI Gastrointestinal: No symptoms reported Genitourinary: No symptoms reported Musculoskeletal: No symptoms reported Skin: No symptoms reported Neurological/Psychological: No symptoms reported Physical Exam - Vital signs Vitals: Resp 40 H 05/20/20 11:44 - Notes Notes: This is a 45-year-old female who appears older than her stated age, in no acute distress. Vital signs reviewed, please refer to chart. Head is normocephalic, atraumatic. Pupils equal round, reactive to light. Neck is supple without meningismus. Heart is regular rate and rhythm. Examination of the lungs reveals markedly diminished breath sounds on the right, moderately on the left. Abdomen is soft, nontender, normoactive bowel sounds throughout. Extremities without cyanosis, clubbing. She is pitting edema to the thighs bilaterally. Posterior calves are nontender. Peripheral pulses are equal. Skin is warm and dry. Patient is awake, alert, neurological exam is nonfocal. Course - Re-evaluation Re-evalutation: 05/20/20 14:50 Patient presents to the emergency department for evaluation. She was placed on program clerk, laboratory investigations were ordered. Patient initially had heart rate in the 80s, vitals are stable. She was treated with IV Lasix. Patient was complaining of chest pain, she was treated with morphine and Benadryl, as per her request. The patient also requested a Raza catheter be placed. She states she cannot get up to use the bathroom, refuses a bedpan. She was informed of the possibility of increased risk of infection with Raza catheter placement, voiced understanding, still wishes this to be placed. Order was placed. I went back into reevaluate the patient when I noted her heart rate had increased into the 130s. Her respiratory rate is increased as well. We will place the patient on BiPAP. Orders placed for this. 05/20/20 17:43 Patient started coughing, started feeling more short of breath. She became tachycardic. Her vitals all responded after treatment with BiPAP and a small amount of IV metoprolol. Currently her blood pressures in the 130s. Her heart rate is in the 70s. She is oxygenating 97%. Her ABG shows no significant hypoxemia or hypercapnia. I spoke with Dr. Crane, on-call for Dr. Workman. He will admit the patient to [facility]. He does request a COVID-19 test be per formed. - Vital Signs Vital signs: Temp Pulse Resp BP Pulse Ox 97.5 F 86 16 127/89 H 100 05/21/20 11:23 05/21/20 11:23 05/21/20 11:23 05/21/20 11:23 05/21/20 11:23 - Laboratory Result Diagrams: 05/21/20 11:16 05/20/20 11:47 Laboratory results interpreted by me: 05/20/20 05/20/20 05/20/20 11:47 11:47 11:47 RBC 5.58 H Hct 47.3 H RDW 19.2 H Lymph % (Auto) 11.1 L Seg Neutrophils % 79.8 H Carbonic Acid ABG pCO2 ABG HCO3 ABG Total CO2 VBG pCO2 VBG HCO3 Sodium 136.2 L Chloride 109 H Carbon Dioxide 21 L BUN 37 H Creatinine 1.72 H Est GFR ( Amer) 39 L Est GFR (MDRD) Non-Af 32 L Glucose 154 H Alkaline Phosphatase 164 H Creatine Kinase 245 H CK-MB (CK-2) 5.41 H NT-Pro-B Natriuret Pep Total Protein 5.3 L Albumin 2.8 L Urine Protein Urine Blood 05/20/20 05/20/20 05/20/20 11:47 11:47 16:00 RBC Hct RDW Lymph % (Auto) Seg Neutrophils % Carbonic Acid ABG pCO2 ABG HCO3 ABG Total CO2 VBG pCO2 29.1 L VBG HCO3 17.6 L Sodium Chloride Carbon Dioxide BUN Creatinine Est GFR ( Amer) Est GFR (MDRD) Non-Af Glucose Alkaline Phosphatase Creatine Kinase CK-MB (CK-2) NT-Pro-B Natriuret Pep 25234 H Total Protein Albumin Urine Protein >=500 H Urine Blood SMALL H 05/20/20 16:35 RBC Hct RDW Lymph % (Auto) Seg Neutrophils % Carbonic Acid 0.94 L ABG pCO2 31.3 L ABG HCO3 17.0 L ABG Total CO2 18.0 L VBG pCO2 VBG HCO3 Sodium Chloride Carbon Dioxide BUN Creatinine Est GFR ( Amer) Est GFR (MDRD) Non-Af Glucose Alkaline Phosphatase Creatine Kinase CK-MB (CK-2) NT-Pro-B Natriuret Pep Total Protein Albumin Urine Protein Urine Blood - Diagnostic Test Radiology reviewed: Image reviewed, Reports reviewed Radiology results interpreted by me: 05/20/20 14:51 Chest X-Ray 05/20/20 12:08 IMPRESSION: Interval development of moderate size right pleural effusion and possible small left pleural effusion. Patchy opacity over the right lung apex as well. Findings may be on the basis of congestive heart failure, though an infectious etiology could appear similar. Moderate cardiomegaly. - EKG Interpretation by Me Additional EKG results interpreted by me: 05/20/20 14:51 Atrial sensed ventricular pacing with a rate of 99 bpm. No change from prior. Critical Care Note - Critical Care Note Total time excluding time spent on procedures (mins): 25 Discharge - Discharge Clinical Impression: Acute on chronic combined systolic and diastolic CHF, NYHA class 3, Bilateral lower extremity edema Respiratory failure Qualifiers: Chronicity: acute Respiratory failure complication: unspecified whether with hypoxia or hypercapnia Qualified Code(s): J96.00 - Acute respiratory failure, unspecified whether with hypoxia or hypercapnia Condition: Stable Disposition: ADMITTED INPATIENT Admitting Provider: Jacinta Crane covering Unit Admitted: [facility]
[2020-05-20] MEDS ORDERED: METOPROLOL TARTRATE PF/INJ 5 MG/5 ML SDV IV ONE (15:16)
[2020-05-20 16:24] LABS: APPEARANCE,URINE SLIGHTLY-CLOUDY; BILIRUBIN,URINE NEGATIVE (NEGATIVE); COLOR,URINE YELLOW; GLUCOSE, URINE NEGATIVE (NEGATIVE); KETONES,URINE NEGATIVE (NEGATIVE); LEUKOCYTE ESTERASE,URINE NEGATIVE (NEGATIVE); NITRITE,URINE NEGATIVE (NEGATIVE); PROTEIN,URINE >=500 mg/dL (NEGATIVE); URINE SPECIFIC GRAVITY 1.019; UROBILINOGEN,URINE NEGATIVE mg/dL (<2.0)
[2020-05-20 16:48] LABS: ARTERIAL BLOOD BASE EXCESS -7.2 mmol/L; ARTERIAL BLOOD H2CO3 0.94 mmol/L (1.05-1.35); ARTERIAL BLOOD O2 SATURATION 96.2 % (94-98); ARTERIAL BLOOD PCO2 31.3 mmHg (35-45); ARTERIAL BLOOD PH 7.35 (7.35-7.45); ARTERIAL BLOOD PO2 85.9 mmHg (80-100)
[2020-05-20 16:49] LABS: ARTERIAL BLOOD FIO2 30%
--- NOTE | 2020-05-20 20:22 | EKG REPORT ---
SEVERITY:- ABNORMAL ECG - ATRIAL-SENSED VENTRICULAR-PACED RHYTHM : Confirmed by: Megan Dozier 20-May-2020 20:21:40
--- NOTE | 2020-05-20 20:22 | EKG REPORT ---
SEVERITY:- ABNORMAL ECG - SINUS TACHYCARDIA WITH FUSION BEATS PROBABLE LEFT ATRIAL ABNORMALITY NONSPECIFIC INTRAVENTRICULAR CONDUCTION DELAY LOW VOLTAGE IN FRONTAL LEADS : Confirmed by: Megan Dozier 20-May-2020 20:21:32
[2020-05-20] MEDS ORDERED: ONDANSETRON HCL INJ/PF 4 MG/2 ML SDV ONE (21:26)
[2020-05-20] MEDS ORDERED: TRAMADOL HCL 50 MG TABLET PO PRN (23:03)
[2020-05-20] MEDS: DIPHENHYDRAMINE HCL 50 MG CAPSULE PO PRN (23:30)
[2020-05-21 11:55] LABS: HEMATOCRIT 42.8 % (36.0-47.0); HEMOGLOBIN 13.8 g/dL (12.0-15.5); MEAN CORPUSCULAR HEMOGLOBIN 27.4 pg (27.0-33.4); MEAN CORPUSCULAR HGB CONC 32.3 g/dL (32.0-36.0); MEAN CORPUSCULAR VOLUME 85 fl (80-97); PLATELET COUNT 240 10^3/uL (150-450); RED BLOOD COUNT 5.04 10^6/uL (3.72-5.28); RED CELL DISTRIBUTION WIDTH 19.2 % (11.5-14.0); WHITE BLOOD COUNT 4.5 10^3/uL (4.0-10.5)
[2020-05-21] MEDS ORDERED: TRAMADOL HCL 50 MG TABLET PO PRN (13:26)
[2020-05-21] MEDS ORDERED: FUROSEMIDE 80 MG TABLET PO SCH (14:00)
[2020-05-21 14:42] LABS: APPEARANCE,URINE CLOUDY; BILIRUBIN,URINE NEGATIVE (NEGATIVE); COLOR,URINE AMBER; GLUCOSE, URINE NEGATIVE (NEGATIVE); KETONES,URINE NEGATIVE (NEGATIVE); LEUKOCYTE ESTERASE,URINE TRACE (NEGATIVE); NITRITE,URINE NEGATIVE (NEGATIVE); PROTEIN,URINE >=500 mg/dL (NEGATIVE); URINE SPECIFIC GRAVITY 1.016
[2020-05-21] MEDS: CARVEDILOL 12.5 MG TABLET PO SCH ×2 (15:07→21:54)
[2020-05-21] MEDS: FERROUS SULFATE 325 MG TABLET PO SCH (15:08)
[2020-05-21] MEDS: CALCITRIOL 0.25 MCG CAPSULE PO SCH (15:08)
[2020-05-21] MEDS: LUBIPROSTONE 24 MCG CAPSULE PO SCH ×2 (15:08→21:53)
[2020-05-21] MEDS: BUMETANIDE 1 MG TABLET PO SCH (15:08)
[2020-05-21] MEDS: COLCHICINE 0.6 MG TABLET PO SCH (15:08)
[2020-05-21] MEDS: ISOSORBIDE DINITRATE 20 MG TABLET PO SCH ×2 (15:08→21:53)
[2020-05-21] MEDS: ALLOPURINOL 100 MG TABLET PO SCH (15:08)
[2020-05-21] MEDS: AMLODIPINE BESYLATE 10 MG TABLET PO SCH (15:21)
[2020-05-21] MEDS: PANTOPRAZOLE SODIUM 40 MG TABLET.DR PO SCH (15:21)
[2020-05-21] MEDS: MEDROXYPROGESTERONE ACET 10 MG TABLET PO SCH (16:59)
--- NOTE | 2020-05-21 21:30 | PDOC H&P ---
History of Present Illness Admission Date/PCP: 05/20/20 17:59 VU GUZMAN MD History of Present Illness: BERONICA YEUNG is a 45 year old female, Patient is well-known to me very unfortunate young female with multiple comorbid conditions including chronic systolic and diastolic heart failure, nephrotic syndrome, diabetes mellitus complicated with neuropathy, nephropathy, retinopathy, status post AICD pacemaker implantation, on megadoses of diuretic she presented emergency room for evaluation of progress shortness of breath despite medication adherence. She was evaluated in the emergency room, a chest x-ray was done, the chest x-ray demonstrated, moderate right pleural effusion, patchy opacity over the right lung apex also was a small left pleural effusion there was no definite left sided pulmonary consolidation no masses there was cardiomegaly. The serum B type natruretic peptide was elevated consistent with CHF Past Medical History Cardiac Medical History: Reports: Congestive Heart Failure - Chronic systolic and diastolic heart failure, Coronary Artery Disease, Myocardial Infarction - STENTS/DEFIBRILLATOR/PACEMAKER, Hypertension, Pulmonary Embolism Pulmonary Medical History: Reports: Chronic Obstructive Pulmonary Disease (COPD), Pneumonia Endocrine Medical History: Reports: Diabetes Mellitus Type 2 - non compliant (pt has snacks in her suitcase etc) Renal/ Medical History: Reports: Chronic Kidney Disease, Other - Chronic kidney disease stage III GI Medical History: Reports: Gastroesophageal Reflux Disease Psychiatric Medical History: Reports: Depression Hematology: Reports: Anemia Past Surgical History Past Surgical History: Reports: Cardiac Catheterization - stent x1, Coronary Stent, Internal Defibrillator, Pacemaker - AICD, Other - Left-sided biventricular [employer] defibrillator 02/26/2018, [place] [facility] Social History Smoking Status: Never Smoker Electronic Cigarette use?: No Frequency of Alcohol Use: None Hx Recreational Drug Use: No Drugs: None Hx Prescription Drug Abuse: No Family History Family History: Reviewed & Not Pertinent, Hypertension Parental Family History Reviewed: Yes Children Family History Reviewed: Yes Sibling(s) Family History Reviewed.: Yes Medication/Allergy Home Medications: Allopurinol [Zyloprim 100 mg Tablet] 100 mg PO DAILY 10/30/19 Amlodipine Besylate [Norvasc 10 mg Tablet] 10 mg PO DAILY 10/30/19 Atorvastatin Calcium [Lipitor 80 mg Tablet] 80 mg PO QHS 10/30/19 Bumetanide [Bumex 1 mg Tablet] 3 mg PO DAILY 10/30/19 Calcitriol [Rocaltrol 0.25 mcg Capsule] 0.25 mcg PO DAILY 10/30/19 Ferrous Sulfate [Feosol 325 mg Tablet] 325 mg PO DAILY 10/30/19 Furosemide [Lasix 80 mg Tablet] 80 mg PO Q8 10/30/19 Isosorbide Dinitrate [Isordil Titradose 20 mg Tablet] 60 mg PO Q8 10/30/19 Lubiprostone [Amitiza 24 Mcg Capsule] 24 mcg PO Q12 10/30/19 Tramadol HCl [Ultram 50 mg Tablet] 50 mg PO Q6HP PRN 10/30/19 Zolpidem Tartrate [Ambien] 10 mg PO QHS 10/30/19 Diphenhydramine HCl [Benadryl] 50 mg PO Q8HP PRN 10/31/19 Omeprazole 40 mg PO DAILY 10/31/19 Warfarin Sodium [Jantoven 7.5 mg Tablet] 7.5 mg PO DAILY 10/31/19 Carvedilol [Coreg 12.5 mg Tablet] 12.5 mg PO Q12 05/21/20 Colchicine [Colcrys 0.6 mg Tablet] 1 tab PO DAILY 05/21/20 Doxepin HCl [Silenor] 6 mg PO QHS 05/21/20 Ergocalciferol (Vitamin D2) [Vitamin D2] 50,000 unit PO DIOP@1000 05/21/20 Fluconazole [Diflucan] 150 mg PO DIOP@1000 05/21/20 Medroxyprogesterone Acetate [Provera] 10 mg PO DAILY 05/21/20 Allergies/Adverse Reactions: hydrocodone bitartrate [From Vicodin] Allergy (Verified 05/20/20 12:17) Hives hydromorphone HCl [From Dilaudid] Allergy (Verified 05/20/20 12:17) Hives levofloxacin [From Levaquin] Allergy (Verified 05/20/20 12:17) Hives oxycodone HCl [From Percocet] Allergy (Verified 05/20/20 12:17) Hives Review of Systems Constitutional: ABSENT: chills, fever(s), headache(s), weight gain, weight loss Eyes: ABSENT: visual disturbances Ears: ABSENT: hearing changes Cardiovascular: PRESENT: dyspnea on exertion, edema, palpitations Respiratory: PRESENT: dyspnea. ABSENT: cough, hemoptysis Gastrointestinal: ABSENT: abdominal pain, constipation, diarrhea, hematemesis, hematochezia, nausea, vomiting Genitourinary: ABSENT: dysuria, hematuria Musculoskeletal: ABSENT: joint swelling Integumentary: ABSENT: rash, wounds Neurological: ABSENT: abnormal gait, abnormal speech, confusion, dizziness, focal weakness, syncope Psychiatric: ABSENT: anxiety, depression, homidical ideation, suicidal ideation Endocrine: ABSENT: cold intolerance, heat intolerance, menstrual abnormalities, polydipsia, polyuria Hematologic/Lymphatic: ABSENT: easy bleeding, easy bruising, lymphadenopathy Physical Exam Vital Signs: Temp Pulse Resp BP Pulse Ox 98.3 F 89 20 102/62 99 05/21/20 16:27 05/21/20 16:27 05/21/20 16:27 05/21/20 16:27 05/21/20 16:27 Intake & Output 05/20/20 05/21/20 05/22/20 06:59 06:59 06:59 Intake Total 260 Output Total 250 250 Balance 10 -250 Weight 114.8 kg Head exam: PRESENT: atraumatic, normocephalic Eye exam: PRESENT: conjunctiva pink, EOMI, PERRLA Ear exam: PRESENT: normal external ear exam Mouth exam: PRESENT: moist, tongue midline Neck exam: PRESENT: full ROM Respiratory exam: PRESENT: decreased breath sounds Cardiovascular exam: PRESENT: RRR, +S1, +S2 Pulses: PRESENT: normal dorsalis pedis pul, +2 pedal pulses bilateral Vascular exam: PRESENT: normal capillary refill GI/Abdominal exam: PRESENT: normal bowel sounds, soft Rectal exam: PRESENT: deferred Extremities exam: PRESENT: pedal edema Neurological exam: PRESENT: alert, CN II-XII grossly intact Psychiatric exam: PRESENT: appropriate affect, normal mood Skin exam: PRESENT: dry, intact, warm Results Laboratory Results: 05/21/20 11:16 05/20/20 11:47 05/21/20 05/21/20 11:16 13:28 WBC 4.5 RBC 5.04 Hgb 13.8 Hct 42.8 MCV 85 MCH 27.4 MCHC 32.3 RDW 19.2 H Plt Count 240 Urine Color [place] Urine Appearance CLOUDY Urine pH 5.0 Ur Specific [place] 1.016 Urine Protein >=500 H Urine Glucose (UA) NEGATIVE Urine Ketones NEGATIVE Urine Blood LARGE H Urine Nitrite NEGATIVE Ur Leukocyte Esterase TRACE H Urine WBC (Auto) 3 Urine RBC (Auto) >182 05/20/20 05/20/20 05/20/20 11:47 11:47 11:47 Creatine Kinase 245 H CK-MB (CK-2) 5.41 H Troponin I 0.078 NT-Pro-B Natriuret Pep [id number] H 05/20/20 16:00 Creatine Kinase CK-MB (CK-2) Troponin I 0.098 NT-Pro-B Natriuret Pep Impressions: Chest X-Ray 05/20/20 12:08 IMPRESSION: Interval development of moderate size right pleural effusion and possible small left pleural effusion. Patchy opacity over the right lung apex as well. Findings may be on the basis of congestive heart failure, though an infectious etiology could appear similar. Moderate cardiomegaly. Assessment & Plan - Diagnosis (1) Acute combined systolic and diastolic congestive heart failure, NYHA class 1 Is this a current diagnosis for this admission?: Yes Plan: The chest x-ray demonstrated predominantly moderate right pleural effusion, despite taking megadoses of diuretic, this suggests refractory to diuretic, will be transition for now to IV furosemide infusion we also request for thoracentesis if intervention radiologist will perform the procedure she is on w arfarin, anticoagulant that may delay the procedure (2) CKD (chronic kidney disease) stage 3, GFR 30-59 ml/min Is this a current diagnosis for this admission?: Yes (3) Chronic combined systolic (congestive) and diastolic (congestive) heart tyrell lure Is this a current diagnosis for this admission?: Yes Plan: She is supposed to be on Entresto, the medication that was reconciled, Entresto was not listed, she will be started on Entresto (4) residential (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 of 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 Is this a current diagnosis for this admission?: Yes Plan: She is on Coumadin because of history of PE and DVT, 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, she will be on lifelong anticoagulation, pharmacy to dose on this admission (5) Type 2 diabetes mellitus Qualifiers: Diabetes mellitus correction insulin use: without superintendent container terminal use Diabetes mellitus complication status: with kidney complications Diabetes mellitus complication detail: with chronic kidney disease Chronic kidney disease stage: stage 3 (moderate) Qualified Code(s): E11.22 - Type 2 diabetes mellitus with diabetic chronic kidney disease; N18.3 - Chronic kidney disease, stage 3 (moderate) Is this a current diagnosis for this admission?: Yes - Time Time Spent: Greater than 70 Minutes Medications reviewed and adjusted accordingly: Yes Anticipated Discharge Disposition: Home, Self Care Anticipated Discharge Timeframe: 7 days
[2020-05-21] MEDS: ZOLPIDEM TARTRATE 5 MG TABLET PO SCH (21:53)
[2020-05-21] MEDS: ATORVASTATIN CALCIUM 80 MG TABLET PO SCH (21:53)
[2020-05-21] MEDS: DIPHENHYDRAMINE HCL 50 MG CAPSULE PO PRN (21:53)
[2020-05-21] MEDS: WARFARIN SODIUM 7.5 MG TABLET PO SCH (21:54)
[2020-05-21] MEDS: ONDANSETRON HCL INJ/PF 4 MG/2 ML SDV IV PRN (21:55)
[2020-05-21] MEDS: MORPHINE SULFATE 10 MG/ML INJ IV PRN (21:55)
[2020-05-21] MEDS: SACUBITRIL/VALSARTAN 97 MG/103 MG TABLET PO SCH (21:56)
[2020-05-21] MEDS ORDERED: (PENDING PHARMACY ID) (Zolpidem Tartrate [Ambien] 10 MG) PO SCH (22:00)
[2020-05-21] MEDS ORDERED: (PENDING PHARMACY ID) (Doxepin Hcl [Silenor] 6 MG) PO SCH (22:00)
[2020-05-21] MEDS ORDERED: DIPHENHYDRAMINE HCL 50 MG/ML VIAL ONE (22:05)
[2020-05-21 22:21] LABS: TOTAL PROTEIN 4.5 g/dL (6.3-8.2)
[2020-05-21 22:30] LABS: CREATINE KINASE MB 3.85 ng/mL (<4.55); TROPONIN I 0.076 ng/mL
[2020-05-21 22:31] LABS: URINE CREATININE 211.1 mg/dL (15-278)
[2020-05-21 22:38] LABS: UR PRO/CREAT RATIO RESULT 1.6 mg/mg (0.0-0.2); URINE PROTEIN 333.2 mg/dL (<12)
[2020-05-21] MEDS: DIPHENHYDRAMINE HCL 50 MG/ML VIAL IV PRN (23:02)
[2020-05-22] MEDS: ISOSORBIDE DINITRATE 20 MG TABLET PO SCH ×3 (05:20→21:23)
[2020-05-22] MEDS: PANTOPRAZOLE SODIUM 40 MG TABLET.DR PO SCH (05:20)
[2020-05-22] MEDS: ONDANSETRON HCL INJ/PF 4 MG/2 ML SDV IV PRN (05:55)
[2020-05-22] MEDS: MORPHINE SULFATE 10 MG/ML INJ IV PRN (05:55)
[2020-05-22] MEDS ORDERED: FUROSEMIDE INJ/PF 100 MG/10 ML SDV ONE ×2 (06:00→06:17)
[2020-05-22] MEDS ORDERED: NORMAL SALINE 250 ML with FUROSEMIDE 250 MG IV PRN ×4 (06:10→22:29)
[2020-05-22] MEDS: NORMAL SALINE 250 ML with FUROSEMIDE 250 MG IV PRN ×4 (06:15→11:49)
[2020-05-22 06:34] LABS: INTERNATIONAL RATION (INR) 1.21; PROTHROMBIN TIME 15.5 SEC (11.4-15.4)
[2020-05-22] MEDS: DIPHENHYDRAMINE HCL 50 MG/ML VIAL IV PRN (07:02)
[2020-05-22 07:08] LABS: CREATINE KINASE MB 3.26 ng/mL (<4.55); TROPONIN I 0.063 ng/mL
[2020-05-22] MEDS: CARVEDILOL 12.5 MG TABLET PO SCH ×2 (09:11→21:22)
[2020-05-22] MEDS: SACUBITRIL/VALSARTAN 97 MG/103 MG TABLET PO SCH ×2 (09:11→23:00)
[2020-05-22] MEDS: CALCITRIOL 0.25 MCG CAPSULE PO SCH (09:11)
[2020-05-22] MEDS: COLCHICINE 0.6 MG TABLET PO SCH (09:11)
[2020-05-22] MEDS: ALLOPURINOL 100 MG TABLET PO SCH (09:11)
[2020-05-22] MEDS: LUBIPROSTONE 24 MCG CAPSULE PO SCH ×2 (09:11→21:23)
[2020-05-22] MEDS: FERROUS SULFATE 325 MG TABLET PO SCH (09:11)
[2020-05-22] MEDS: AMLODIPINE BESYLATE 10 MG TABLET PO SCH (09:12)
[2020-05-22] MEDS: DIPHENHYDRAMINE HCL 25 MG CAPSULE PO PRN (09:28)
[2020-05-22] MEDS: MEDROXYPROGESTERONE ACET 10 MG TABLET PO SCH (12:21)
--- NOTE | 2020-05-22 14:40 | RADIOLOGY REPORT (SQ) ---
EXAM DESCRIPTION: CHEST SINGLE VIEW IMAGES COMPLETED DATE/TIME: 05/22/2020 2:29 pm REASON FOR STUDY: S/P RT THORACENTESIS COMPARISON: 05/20/2020. EXAM PARAMETERS: NUMBER OF VIEWS: One view. TECHNIQUE: Single frontal radiographic view of the chest acquired. RADIATION DOSE: NA LIMITATIONS: None. FINDINGS: LUNGS AND PLEURA: Decrease in the right pleural effusion. No pneumothorax. MEDIASTINUM AND HILAR STRUCTURES: No masses. Contour normal. HEART AND VASCULAR STRUCTURES: Cardiomegaly. Vascular congestion. BONES: No acute findings. HARDWARE: Defibrillator. OTHER: No other significant finding. IMPRESSION: NO PNEUMOTHORAX FOLLOWING THORACENTESIS. TECHNICAL DOCUMENTATION: JOB ID: [id number] 2010 [employer]- All Rights Reserved Reading location - IP/workstation name: [email or web address]
--- NOTE | 2020-05-22 14:43 | RADIOLOGY REPORT (SQ) ---
EXAM DESCRIPTION: U/S THORACENTESIS WITH IMAGING IMAGES COMPLETED DATE/TIME: 05/22/2020 2:31 pm REASON FOR STUDY: RT PLEURAL EFFUSION COMPARISON: 11/07/2019. LIMITATIONS: None. PROCEDURE: Procedure, risks, benefit, and alternative explained to patient who then gave written con sent. The posterior right chest wall was marked using ultrasound guidance. A time-out was called fo r correct marking verification. Chest prepped and draped using sterile technique. Local anesthesia a chieved using 10 ml of 1% lidocaine injection. A 6fr Safe-T- Centesis set was introduced into the [facility] pleural space. Fluid was aspirated. The catheter was removed and the entry site was covered wit h sterile bandage. No immediate complications noted. Images acquired during the procedure were stored on PACS. FINDINGS: ENTRY SITE: posterior right chest. FLUID VOLUME: 1050 mL. FLUID ANALYSIS: Straw-colored. OTHER: Fluid sent to the lab for testing. IMPRESSION: SUCCESSFUL THORACENTESIS USING ULTRASOUND GUIDANCE. COMMENT: Patient medication list reviewed: Yes- Quality ID# [id number]:Eligible professional attests to doc umenting in the medical record they obtained, updated, or reviewed the patient's current medications. TECHNICAL DOCUMENTATION: JOB ID: [id number] 2010 [employer]- All Rights Reserved Reading location - IP/workstation name: [email or web address]
[2020-05-22 15:48] LABS: FLUID SOURCE ABDOMEN; FLUID TYPE PERITONEAL
[2020-05-22 15:49] LABS: FLUID APPEARANCE CLEAR; FLUID COLOR STRAW; FLUID VISCOSITY LIQUID
[2020-05-22 16:17] LABS: CREATINE KINASE MB 4.51 ng/mL (<4.55); TROPONIN I 0.06 ng/mL
[2020-05-22 16:30] LABS: ALBUMIN 2.7 g/dL (3.5-5.0); ALKALINE PHOSPHATASE 141 U/L (38-126); ANION GAP 12 (5-19); ASPARTATE AMINO TRANSFERASE 32 U/L (14-36); BILIRUBIN,DIRECT 0.4 mg/dL (0.0-0.4); BILIRUBIN,TOTAL 0.9 mg/dL (0.2-1.3); BLOOD UREA NITROGEN 54 mg/dL (7-20); CARBON DIOXIDE 18 mmol/L (22-30); CHLORIDE 107 mmol/L (98-107); GLUCOSE 100 mg/dL (75-110); TOTAL PROTEIN 5.3 g/dL (6.3-8.2)
--- NOTE | 2020-05-22 17:13 | RADIOLOGY REPORT (SQ) ---
EXAM DESCRIPTION: CHEST SINGLE VIEW IMAGES COMPLETED DATE/TIME: 05/22/2020 4:49 pm REASON FOR STUDY: 2 HRS S/P RT THORACENTESIS COMPARISON: 05/22/2020 EXAM PARAMETERS: NUMBER OF VIEWS: One view. TECHNIQUE: Single frontal radiographic view of the chest acquired. RADIATION DOSE: NA LIMITATIONS: None. FINDINGS: LUNGS AND PLEURA: No pneumothorax post right thoracentesis. Stable small right pleural e ffusion and right lung base opacity. MEDIASTINUM AND HILAR STRUCTURES: No masses. Contour normal. HEART AND VASCULAR STRUCTURES: Marked generalized cardiomegaly. Pulmonary vascular redistribution. BONES: No acute findings. Hardware: Cardiac pacemaker/defibrillator. OTHER: No other significant finding. IMPRESSION: 1. Status post thoracentesis, no pneumothorax. 2. No other significant interval changes since examination performed earlier on 05/22/2020. TECHNICAL DOCUMENTATION: JOB ID: [id number] 2010 [employer]- All Rights Reserved Reading location - IP/workstation name: [email or web address]
--- NOTE | 2020-05-22 19:18 | PDOC PROGRESS REPORT ---
Subjective Progress Note for:: 05/22/20 Subjective:: Patient had thoracentesis, 1050 cc of fluid was collected,SARS-CoV-2 rule out Reason For Visit: ACUTE ON CHRONIC COMBINED SYSTOLIC HEART FAILURE Physical Exam Vital Signs: Temp Pulse Resp BP Pulse Ox 97.2 F 71 16 104/69 100 05/22/20 15:04 05/22/20 15:04 05/22/20 15:04 05/22/20 15:04 05/22/20 15:04 Intake & Output 05/21/20 05/22/20 05/23/20 06:59 06:59 06:59 Intake Total 260 111 Output Total 250 450 Balance 10 -450 111 Weight 114.8 kg 114.8 kg General appearance: PRESENT: no acute distress Eye exam: PRESENT: PERRLA Respiratory exam: PRESENT: clear to auscultation abdi Cardiovascular exam: PRESENT: +S1, +S2 GI/Abdominal exam: PRESENT: soft Neurological exam: PRESENT: alert Results Laboratory Results: 05/21/20 11:16 05/22/20 15:15 05/21/20 05/22/20 05/22/20 21:47 14:10 15:15 Sodium 136.5 L Potassium 4.0 Chloride 107 Carbon Dioxide 18 L Anion Gap 12 BUN 54 H Creatinine 2.84 H Est GFR ( Amer) 22 L Glucose 100 Calcium 8.0 L Total Bilirubin 0.9 AST 32 Alkaline Phosphatase 141 H Total Protein 4.5 L 5.3 L Albumin 2.7 L Fluid Type PERITONEAL Fluid Source ABDOMEN Fluid Color STRAW Fluid Appearance CLEAR Fluid Viscosity LIQUID Fluid WBC 21 Fluid RBC 508 05/20/20 05/20/20 05/20/20 11:47 11:47 11:47 Creatine Kinase 245 H CK-MB (CK-2) 5.41 H Troponin I 0.078 NT-Pro-B Natriuret Pep [id number] H 05/20/20 05/21/20 05/21/20 16:00 21:47 21:47 Creatine Kinase 244 H CK-MB (CK-2) 3.85 Troponin I 0.098 0.076 NT-Pro-B Natriuret Pep 05/22/20 05/22/20 05/22/20 05:44 05:44 15:00 Creatine Kinase 201 H CK-MB (CK-2) 3.26 4.51 Troponin I 0.063 0.060 NT-Pro-B Natriuret Pep 05/22/20 15:15 Creatine Kinase 315 H CK-MB (CK-2) Troponin I NT-Pro-B Natriuret Pep Impressions: Thoracentesis Ultrasound 05/22/20 00:00 IMPRESSION: SUCCESSFUL THORACENTESIS USING ULTRASOUND GUIDANCE. Chest X-Ray 05/22/20 16:20 IMPRESSION: 1. Status post thoracentesis, no pneumothorax. 2. No other significant interval changes since examination performed earlier on 05/22/2020. 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 Is this a current diagnosis for this admission?: Yes (5) Type 2 diabetes mellitus Qualifiers: Diabetes mellitus [facility] insulin use: without intermediate manager use Diabetes mellitus complication status: with kidney complications Diabetes mellitus complication detail: with chronic kidney disease Chronic kidney disease stage: stage 3 (moderate) Qualified Code(s): E11.22 - Type 2 diabetes mellitus with diabetic chronic kidney disease; N18.3 - Chronic kidney disease, stage 3 (moderate) Is this a current diagnosis for this admission?: Yes - Time Time Spent with patient: 25-34 minutes Level of Care: IMCU Medications reviewed and adjusted accordingly: Yes Anticipated discharge: Home Anticipated DC Timeframe: within 72 hours
[2020-05-22] MEDS: ATORVASTATIN CALCIUM 80 MG TABLET PO SCH (21:22)
[2020-05-22] MEDS: ZOLPIDEM TARTRATE 5 MG TABLET PO SCH (21:23)
--- NOTE | 2020-05-22 23:57 | RADIOLOGY REPORT (SQ) ---
CLINICAL INDICATION: central line. TECHNIQUE: A single portable AP view was obtained of the chest at 2324 hours. COMPARISON: None. FINDINGS: The cardiomediastinal silhouette is enlarged but stable. The lungs again demonstrate pleural and parenchymal disease, similar to prior when accounting for differences in positioning. No obvious pneumothorax on this supine image. Right IJ central venous catheter tip projects over the superior vena cava. IMPRESSION: Satisfactory placement of the right IJ central venous catheter.
[2020-05-23] MEDS ORDERED: NORMAL SALINE 1000 ML 250 ML IV ONE ×2 (00:30→01:00)
[2020-05-23] MEDS ORDERED: NORMAL SALINE 250 ML IV ONE ×2 (00:30→01:30)
[2020-05-23] MEDS ORDERED: DOPAMINE HCL 800 MG/D5W 250 ML IV PRN (01:13)
[2020-05-23] MEDS: DOPAMINE HCL 800 MG/D5W 250 ML IV PRN ×2 (01:26→13:26)
[2020-05-23] MEDS: ISOSORBIDE DINITRATE 20 MG TABLET PO SCH ×3 (06:36→21:24)
[2020-05-23] MEDS ORDERED: NORMAL SALINE INJ/PF 0.9% 10 ML SDV IV PRN (06:38)
[2020-05-23] MEDS: PANTOPRAZOLE SODIUM 40 MG TABLET.DR PO SCH (06:58)
[2020-05-23 07:21] LABS: INTERNATIONAL RATION (INR) 1.43; PROTHROMBIN TIME 17.6 SEC (11.4-15.4)
[2020-05-23] MEDS: CARVEDILOL 12.5 MG TABLET PO SCH ×2 (10:00→21:23)
[2020-05-23] MEDS: CALCITRIOL 0.25 MCG CAPSULE PO SCH (10:00)
[2020-05-23] MEDS: LUBIPROSTONE 24 MCG CAPSULE PO SCH ×2 (10:00→21:25)
[2020-05-23] MEDS: COLCHICINE 0.6 MG TABLET PO SCH (10:00)
[2020-05-23] MEDS: FERROUS SULFATE 325 MG TABLET PO SCH (10:01)
[2020-05-23] MEDS: ALLOPURINOL 100 MG TABLET PO SCH (10:01)
[2020-05-23] MEDS: AMLODIPINE BESYLATE 10 MG TABLET PO SCH (10:01)
[2020-05-23] MEDS: MORPHINE SULFATE 10 MG/ML INJ IV PRN ×2 (10:01→21:25)
[2020-05-23] MEDS: ONDANSETRON HCL INJ/PF 4 MG/2 ML SDV IV PRN ×2 (10:06→22:13)
[2020-05-23] MEDS: SACUBITRIL/VALSARTAN 97 MG/103 MG TABLET PO SCH ×2 (13:08→21:24)
[2020-05-23] MEDS: MEDROXYPROGESTERONE ACET 10 MG TABLET PO SCH (13:08)
--- NOTE | 2020-05-23 15:56 | PDOC PROGRESS REPORT ---
Subjective Progress Note for:: 05/23/20 Subjective:: Patient seen by the bedside last night she developed low blood pressure this is partly from overdiuresis and also because of a liter of fluid was removed from the pleural cavity. She was started on dopamine titrated up to 10 MCG per KG per minute, patient seen by the bedside she is alert oriented she is still requiring dopamine to maintain blood pressure, she is diuresing very well, had a central line placed last night. Reason For Visit: ACUTE ON CHRONIC COMBINED SYSTOLIC HEART FAILURE Physical Exam Vital Signs: Temp Pulse Resp BP Pulse Ox 98.3 F 97 20 94/72 L 98 05/23/20 11:42 05/23/20 14:15 05/23/20 08:26 05/23/20 14:15 05/23/20 14:00 Intake & Output 05/22/20 05/23/20 05/24/20 06:59 06:59 06:59 Intake Total 1570 230 Output Total 450 800 Balance -450 770 230 Weight 114.8 kg 114.8 kg General appearance: PRESENT: no acute distress Head exam: PRESENT: atraumatic, normocephalic Eye exam: PRESENT: PERRLA Ear exam: PRESENT: normal external ear exam Mouth exam: PRESENT: moist, tongue midline Neck exam: PRESENT: full ROM Respiratory exam: PRESENT: clear to auscultation abdi Cardiovascular exam: PRESENT: RRR, +S1, +S2 Pulses: PRESENT: normal dorsalis pedis pul, +2 pedal pulses bilateral Vascular exam: PRESENT: normal capillary refill GI/Abdominal exam: PRESENT: normal bowel sounds, soft Rectal exam: PRESENT: deferred Neurological exam: PRESENT: alert, CN II-XII grossly intact Psychiatric exam: PRESENT: appropriate affect, normal mood Skin exam: PRESENT: dry, intact, warm. ABSENT: cyanosis, rash Results Laboratory Results: 05/21/20 11:16 05/22/20 15:15 05/22/20 05/22/20 14:10 15:15 Sodium 136.5 L Potassium 4.0 Chloride 107 Carbon Dioxide 18 L Anion Gap 12 BUN 54 H Creatinine 2.84 H Est GFR ( Amer) 22 L Glucose 100 Calcium 8.0 L Total Bilirubin 0.9 AST 32 Alkaline Phosphatase 141 H Total Protein 5.3 L Albumin 2.7 L Fluid Type PERITONEAL Fluid Source ABDOMEN Fluid Color STRAW Fluid Appearance CLEAR Fluid Viscosity LIQUID Fluid WBC 21 Fluid RBC 508 05/20/20 05/20/20 05/20/20 11:47 11:47 11:47 Creatine Kinase 245 H CK-MB (CK-2) 5.41 H Troponin I 0.078 NT-Pro-B Natriuret Pep [id number] H 05/20/20 05/21/20 05/21/20 16:00 21:47 21:47 Creatine Kinase 244 H CK-MB (CK-2) 3.85 Troponin I 0.098 0.076 NT-Pro-B Natriuret Pep 05/22/20 05/22/20 05/22/20 05:44 05:44 15:00 Creatine Kinase 201 H CK-MB (CK-2) 3.26 4.51 Troponin I 0.063 0.060 NT-Pro-B Natriuret Pep 05/22/20 15:15 Creatine Kinase 315 H CK-MB (CK-2) Troponin I NT-Pro-B Natriuret Pep Impressions: Thoracentesis Ultrasound 05/22/20 00:00 IMPRESSION: SUCCESSFUL THORACENTESIS USING ULTRASOUND GUIDANCE. Chest X-Ray 05/22/20 16:20 IMPRESSION: 1. Status post thoracentesis, no pneumothorax. 2. No other significant interval changes since examination performed earlier on 05/22/2020. 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 Is this a current diagnosis for this admission?: Yes (5) Type 2 diabetes mellitus Qualifiers: Diabetes mellitus [facility] insulin use: without manager terminal use Diabetes mellitus complication status: with kidney complications Diabetes mellitus complication detail: with chronic kidney disease Chronic kidney disease stage: stage 3 (moderate) Qualified Code(s): E11.22 - Type 2 diabetes mellitus with diabetic chronic kidney disease; N18.3 - Chronic kidney disease, stage 3 (moderate) Is this a current diagnosis for this admission?: Yes (6) Hypotension Qualifiers: Hypotension type: unspecified hypotension type Qualified Code(s): I95.9 - Hypotension, unspecified Is this a current diagnosis for this admission?: Yes Plan: Patient presently on dopamine to maintain adequate blood pressure - Time Time Spent with patient: 35 or more minutes Level of Care: IMCU Anticipated discharge: Home Anticipated DC Timeframe: Other
[2020-05-23] MEDS: ATORVASTATIN CALCIUM 80 MG TABLET PO SCH (21:24)
[2020-05-23] MEDS: ZOLPIDEM TARTRATE 5 MG TABLET PO SCH (21:24)
[2020-05-23] MEDS: DIPHENHYDRAMINE HCL 50 MG/ML VIAL IV PRN (21:30)
[2020-05-24] MEDS: DOPAMINE HCL 800 MG/D5W 250 ML IV PRN ×2 (02:35→13:28)
[2020-05-24 02:46] LABS: APPEARANCE,URINE CLEAR; BILIRUBIN,URINE NEGATIVE (NEGATIVE); COLOR,URINE YELLOW; GLUCOSE, URINE NEGATIVE (NEGATIVE); KETONES,URINE NEGATIVE (NEGATIVE); LEUKOCYTE ESTERASE,URINE TRACE (NEGATIVE); NITRITE,URINE NEGATIVE (NEGATIVE); PROTEIN,URINE NEGATIVE (NEGATIVE); URINE SPECIFIC GRAVITY 1.013
[2020-05-24 03:08] LABS: ADD MANUAL MICROSCOPIC YES; BACTERIA,URINE TRACE /HPF
[2020-05-24] MEDS: ISOSORBIDE DINITRATE 20 MG TABLET PO SCH ×2 (05:39→15:01)
[2020-05-24] MEDS: PANTOPRAZOLE SODIUM 40 MG TABLET.DR PO SCH (05:39)
[2020-05-24 06:31] LABS: HEMATOCRIT 39.7 % (36.0-47.0); HEMOGLOBIN 12.7 g/dL (12.0-15.5); MEAN CORPUSCULAR HEMOGLOBIN 26.9 pg (27.0-33.4); MEAN CORPUSCULAR HGB CONC 31.9 g/dL (32.0-36.0); MEAN CORPUSCULAR VOLUME 84 fl (80-97); PLATELET COUNT 231 10^3/uL (150-450); RED BLOOD COUNT 4.71 10^6/uL (3.72-5.28); WHITE BLOOD COUNT 5.3 10^3/uL (4.0-10.5)
[2020-05-24 06:40] LABS: INTERNATIONAL RATION (INR) 1.45; PROTHROMBIN TIME 17.8 SEC (11.4-15.4)
[2020-05-24] MEDS: MEDROXYPROGESTERONE ACET 10 MG TABLET PO SCH (10:04)
[2020-05-24] MEDS: LUBIPROSTONE 24 MCG CAPSULE PO SCH ×2 (10:04→21:33)
[2020-05-24] MEDS: CARVEDILOL 12.5 MG TABLET PO SCH ×2 (10:04→21:37)
[2020-05-24] MEDS: FERROUS SULFATE 325 MG TABLET PO SCH (10:04)
[2020-05-24] MEDS: SACUBITRIL/VALSARTAN 97 MG/103 MG TABLET PO SCH (10:04)
[2020-05-24] MEDS: COLCHICINE 0.6 MG TABLET PO SCH (10:04)
[2020-05-24] MEDS: ALLOPURINOL 100 MG TABLET PO SCH (10:04)
[2020-05-24] MEDS: CALCITRIOL 0.25 MCG CAPSULE PO SCH (10:04)
[2020-05-24] MEDS: AMLODIPINE BESYLATE 10 MG TABLET PO SCH (10:07)
[2020-05-24] MEDS ORDERED: DOBUTAMINE HCL/D5W 500 MG/250 ML RTUINJ IV ONE (13:05)
[2020-05-24] MEDS: DOBUTAMINE HCL/D5W 500 MG/250 ML RTUINJ IV PRN ×2 (13:27→21:26)
--- NOTE | 2020-05-24 19:12 | PDOC PROGRESS REPORT ---
Subjective Progress Note for:: 05/24/20 Subjective:: Patient seen by the bedside, there is hemodynamic instability Reason For Visit: ACUTE ON CHRONIC COMBINED SYSTOLIC HEART FAILURE Physical Exam Vital Signs: Temp Pulse Resp BP Pulse Ox 97.2 F 78 25 H 93/53 L 100 05/24/20 16:51 05/24/20 18:30 05/24/20 16:20 05/24/20 18:30 05/24/20 18:30 Intake & Output 05/23/20 05/24/20 05/25/20 06:59 06:59 06:59 Intake Total 1570 1605 2330 Output Total 800 1095 400 Balance 101 984 3215 Weight 114.8 kg 96.3 kg General appearance: PRESENT: no acute distress Eye exam: PRESENT: PERRLA Respiratory exam: PRESENT: clear to auscultation abdi Cardiovascular exam: PRESENT: +S1, +S2 GI/Abdominal exam: PRESENT: ascites, soft Neurological exam: PRESENT: alert Results Laboratory Results: 05/24/20 06:00 05/22/20 15:15 05/23/20 05/24/20 21:30 06:00 WBC 5.3 RBC 4.71 Hgb 12.7 Hct 39.7 MCV 84 MCH 26.9 L MCHC 31.9 L RDW 19.0 H Plt Count 231 Urine Color YELLOW Urine Appearance CLEAR Urine pH 5.0 Ur Specific [place] 1.013 Urine Protein NEGATIVE Urine Glucose (UA) NEGATIVE Urine Ketones NEGATIVE Urine Blood SMALL H Urine Nitrite NEGATIVE Ur Leukocyte Esterase TRACE H Ur Squamous Epith Cells FEW 05/22/20 14:10 Pleural Fluid - Right Pleural Effusion Gram Stain - Final 05/20/20 05/20/20 05/20/20 11:47 11:47 11:47 Creatine Kinase 245 H CK-MB (CK-2) 5.41 H Troponin I 0.078 NT-Pro-B Natriuret Pep [id number] H 05/20/20 05/21/20 05/21/20 16:00 21:47 21:47 Creatine Kinase 244 H CK-MB (CK-2) 3.85 Troponin I 0.098 0.076 NT-Pro-B Natriuret Pep 05/22/20 05/22/20 05/22/20 05:44 05:44 15:00 Creatine Kinase 201 H CK-MB (CK-2) 3.26 4.51 Troponin I 0.063 0.060 NT-Pro-B Natriuret Pep 05/22/20 15:15 Creatine Kinase 315 H CK-MB (CK-2) Troponin I NT-Pro-B Natriuret Pep Impressions: Thoracentesis Ultrasound 05/22/20 00:00 IMPRESSION: SUCCESSFUL THORACENTESIS USING ULTRASOUND GUIDANCE. Chest X-Ray 05/22/20 16:20 IMPRESSION: 1. Status post thoracentesis, no pneumothorax. 2. No other significant interval changes since examination performed earlier on 05/22/2020. 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 Is this a current diagnosis for this admission?: Yes (5) Type 2 diabetes mellitus Qualifiers: Diabetes mellitus senior living insulin use: without senior living use Diabetes mellitus complication status: with kidney complications Diabetes mellitus complication detail: with chronic kidney disease Chronic kidney disease stage: stage 3 (moderate) Qualified Code(s): E11.22 - Type 2 diabetes mellitus with diabetic chronic kidney disease; N18.3 - Chronic kidney disease, stage 3 (moderate) Is this a current diagnosis for this admission?: Yes (6) Hypotension Qualifiers: Hypotension type: unspecified hypotension type Qualified Code(s): I95.9 - Hypotension, unspecified Is this a current diagnosis for this admission?: Yes Plan: Patient presently on dopamine to maintain adequate blood pressure - Time Time Spent with patient: 25-34 minutes Level of Care: IMCU Medications reviewed and adjusted accordingly: Yes Anticipated discharge: Home
[2020-05-24] MEDS: ZOLPIDEM TARTRATE 5 MG TABLET PO SCH (21:33)
[2020-05-24] MEDS: ATORVASTATIN CALCIUM 80 MG TABLET PO SCH (21:37)
[2020-05-24] MEDS: WARFARIN SODIUM 7.5 MG TABLET PO SCH (21:44)
[2020-05-24] MEDS: DIPHENHYDRAMINE HCL 50 MG/ML VIAL IV PRN (21:44)
[2020-05-25] MEDS: DOPAMINE HCL 800 MG/D5W 250 ML IV PRN ×2 (02:56→16:30)
[2020-05-25] MEDS: DOBUTAMINE HCL/D5W 500 MG/250 ML RTUINJ IV PRN ×4 (03:27→23:49)
[2020-05-25] MEDS: PANTOPRAZOLE SODIUM 40 MG TABLET.DR PO SCH (05:50)
[2020-05-25 07:19] LABS: PROTHROMBIN TIME 17.3 SEC (11.4-15.4)
[2020-05-25 08:49] LABS: ALBUMIN BODY FLUID 0.6 g/dL (Not Estab.); PH BODY FLUID 7.6 (Not Estab.); TOTAL PROTEIN BODY FLUID 1.1 g/dL (.)
[2020-05-25] MEDS: CALCITRIOL 0.25 MCG CAPSULE PO SCH (09:52)
[2020-05-25] MEDS: CARVEDILOL 12.5 MG TABLET PO SCH ×2 (09:52→22:14)
[2020-05-25] MEDS: FERROUS SULFATE 325 MG TABLET PO SCH (09:52)
[2020-05-25] MEDS: ALLOPURINOL 100 MG TABLET PO SCH (09:52)
[2020-05-25] MEDS: LUBIPROSTONE 24 MCG CAPSULE PO SCH ×2 (09:53→22:13)
[2020-05-25] MEDS: COLCHICINE 0.6 MG TABLET PO SCH (09:53)
[2020-05-25] MEDS: MEDROXYPROGESTERONE ACET 10 MG TABLET PO SCH (09:54)
[2020-05-25 11:46] LABS: APPEARANCE,URINE CLEAR; BILIRUBIN,URINE NEGATIVE (NEGATIVE); COLOR,URINE YELLOW; GLUCOSE, URINE NEGATIVE (NEGATIVE); KETONES,URINE NEGATIVE (NEGATIVE); LEUKOCYTE ESTERASE,URINE NEGATIVE (NEGATIVE); NITRITE,URINE NEGATIVE (NEGATIVE); PROTEIN,URINE NEGATIVE (NEGATIVE); URINE SPECIFIC GRAVITY 1.013; UROBILINOGEN,URINE NEGATIVE mg/dL (<2.0)
[2020-05-25] MEDS: MORPHINE SULFATE 10 MG/ML INJ IV PRN ×2 (12:51→22:36)
[2020-05-25] MEDS: DIPHENHYDRAMINE HCL 50 MG/ML VIAL IV PRN ×2 (12:51→22:36)
[2020-05-25] MEDS: ONDANSETRON HCL INJ/PF 4 MG/2 ML SDV IV PRN ×2 (12:51→22:35)
--- NOTE | 2020-05-25 18:58 | PDOC CONSULTATION ---
Consultation-Blank Consultation: CARDIOLOGY CONSULTATION by Dr. Maite Carter on 05/25/2020. Patient seen at 6 PM. 60 minutes spent with patient more than 50% of time spent in direct patient care. REASON FOR CONSULTATION: Management of heart failure patient with cardiomyopathy. CONSULT REQUESTING PHYSICIAN: Dr. Workman. HISTORY OF PRESENT ILLNESS: Past Medical History Cardiac Medical History: Reports: Congestive Heart Failure - Chronic systolic and diastolic heart failure, Coronary Artery Disease, Myocardial Infarction - STENTS/DEFIBRILLATOR/PACEMAKER, Hypertension, Pulmonary Embolism Pulmonary Medical History: Reports: Chronic Obstructive Pulmonary Disease (C OPD), Pneumonia Endocrine Medical History: Reports: Diabetes Mellitus Type 2 - non compliant (pt has snacks in her suitcase etc) Renal/ Medical History: Reports: Chronic Kidney Disease, Other - Chronic kidney disease stage III GI Medical History: Reports: Gastroesophageal Reflux Disease Psychiatric Medical History: Reports: Depression Hematology: Reports: Anemia Past Surgical History Past Surgical History: Reports: Cardiac Catheterization - stent x1, Coronary Stent, Internal Defibrillator, Pacemaker - AICD, Other - Left-sided biventricular Medtronic defibrillator 02/26/2018, Lui Milner Social History Smoking Status: Never Smoker Electronic Cigarette use?: No Frequency of Alcohol Use: None Hx Recreational Drug Use: No Drugs: None Hx Prescription Drug Abuse: No Family History Family History: Reviewed & Not Pertinent, Hypertension Parental Family History Reviewed: Yes Children Family History Reviewed: Yes Sibling(s) Family History Reviewed.: Yes Medication/Allergy Home Medications: Allopurinol [Zyloprim 100 mg Tablet] 100 mg PO DAILY 10/30/19 Amlodipine Besylate [Norvasc 10 mg Tablet] 10 mg PO DAILY 10/30/19 Atorvastatin Calcium [Lipitor 80 mg Tablet] 80 mg PO QHS 10/30/19 Bumetanide [Bumex 1 mg Tablet] 3 mg PO DAILY 10/30/19 Calcitriol [Rocaltrol 0.25 mcg Capsule] 0.25 mcg PO DAILY 10/30/19 Ferrous Sulfate [Feosol 325 mg Tablet] 325 mg PO DAILY 10/30/19 Furosemide [Lasix 80 mg Tablet] 80 mg PO Q8 10/30/19 Isosorbide Dinitrate [Isordil Titradose 20 mg Tablet] 60 mg PO Q8 10/30/19 Lubiprostone [Amitiza 24 Mcg Capsule] 24 mcg PO Q12 10/30/19 Tramadol HCl [Ultram 50 mg Tablet] 50 mg PO Q6HP PRN 10/30/19 Zolpidem Tartrate [Ambien] 10 mg PO QHS 10/30/19 Diphenhydramine HCl [Benadryl] 50 mg PO Q8HP PRN 10/31/19 Omeprazole 40 mg PO DAILY 10/31/19 Warfarin Sodium [Jantoven 7.5 mg Tablet] 7.5 mg PO DAILY 10/31/19 Carvedilol [Coreg 12.5 mg Tablet] 12.5 mg PO Q12 05/21/20 Colchicine [Colcrys 0.6 mg Tablet] 1 tab PO DAILY 05/21/20 Doxepin HCl [Silenor] 6 mg PO QHS 05/21/20 Ergocalciferol (Vitamin D2) [Vitamin D2] 50,000 unit PO DIOP@1000 05/21/20 Fluconazole [Diflucan] 150 mg PO DIOP@1000 05/21/20 Medroxyprogesterone Acetate [Provera] 10 mg PO DAILY 05/21/20 RESUSCITATION STATUS: The patient is a full code. Her son is her surrogate healthcare decision maker. Allergies/Adverse Reactions: hydrocodone bitartrate [From Vicodin] Allergy (Verified 05/20/20 12:17) Hives hydromorphone HCl [From Dilaudid] Allergy (Verified 05/20/20 12:17) Hives levofloxacin [From Levaquin] Allergy (Verified 05/20/20 12:17) Hives oxycodone HCl [From Percocet] Allergy (Verified 05/20/20 12:17) Hives Review of Systems Constitutional: ABSENT: chills, fever(s), headache(s), weight gain, weight loss Eyes: ABSENT: visual disturbances Ears: ABSENT: hearing changes Cardiovascular: PRESENT: dyspnea on exertion, edema, palpitations Respiratory: PRESENT: dyspnea. ABSENT: cough, hemoptysis Gastrointestinal: ABSENT: abdominal pain, constipation, diarrhea, hematemesis, hematochezia, nausea, vomiting Genitourinary: ABSENT: dysuria, hematuria Musculoskeletal: ABSENT: joint swelling Integumentary: ABSENT: rash, wounds Neurological: ABSENT: abnormal gait, abnormal speech, confusion, dizziness, focal weakness, syncope Psychiatric: ABSENT: anxiety, depression, homidical ideation, suicidal ideation Endocrine: ABSENT: cold intolerance, heat intolerance, menstrual abnormalities, polydipsia, polyuria Hematologic/Lymphatic: ABSENT: easy bleeding, easy bruising, lymphadenopathy Current Medications Generic Name Dose Route Start Last Admin Trade Name Freq PRN Reason Stop Dose Admin Allopurinol 100 mg 05/21/20 15:00 05/25/20 09:52 Zyloprim 100 Mg Tablet PO 06/20/20 14:59 100 mg DAILY DEBBY Administration Atorvastatin Calcium 80 mg 05/21/20 22:00 05/24/20 21:37 Lipitor 80 Mg Tablet PO 06/20/20 21:59 80 mg QHS DEBBY Administration Bumetanide 3 mg 05/21/20 15:30 05/21/20 15:08 Bumex 1 Mg Tablet PO 06/20/20 15:29 3 mg DAILY DEBBY Administration Calcitriol 0.25 mcg 05/21/20 15:00 05/25/20 09:52 Rocaltrol 0.25 Mcg Capsule PO 06/20/20 14:59 0.25 mcg DAILY DEBBY Administration Carvedilol 12.5 mg 05/21/20 15:00 05/25/20 09:52 Coreg 12.5 Mg Tablet PO 06/20/20 14:59 12.5 mg Q12 DEBBY Administration Colchicine 0.6 mg 05/21/20 15:00 05/25/20 09:53 Colcrys 0.6 Mg Tablet PO 06/20/20 14:59 0.6 mg DAILY DEBBY Administration Diphenhydramine HCl 50 mg 05/21/20 13:26 05/22/20 09:28 Benadryl 25 Mg Capsule PO 06/20/20 13:25 50 mg Q8HP PRN Administration WITH TRAMADOL Diphenhydramine HCl 50 mg 05/21/20 22:38 05/25/20 12:51 Benadryl Inj 50 Mg/1 Ml Vial IV 06/20/20 22:37 50 mg Q8HP PRN Administration ITCHING Ergocalciferol 50,000 unit 05/27/20 10:00 Drisdol 50,000 Unit (1.25mg) Capsule PO 06/26/20 09:59 DIOP@1000 [facility] Ferrous Sulfate 325 mg 05/21/20 15:00 05/25/20 09:52 Feosol 325 Mg Tablet PO 06/20/20 14:59 325 mg DAILY DEBBY Administration Fluconazole 150 mg 05/27/20 10:00 Diflucan 100 Mg Tablet PO 06/03/20 09:59 Diop@1000 DEBBY Furosemide 40 mg 05/25/20 22:00 Lasix Inj/Pf 40 Mg/4 Ml Sdv IV 06/24/20 21:59 Q8 DEBBY Heparin Sodium (Porcine) 30 unit 05/23/20 14:00 05/25/20 14:14 Heparin Flush 10 Unit/Ml 5 Ml Disp.Syrg IV 06/22/20 13:59 30 unit Q8 DEBBY Administration Heparin Sodium (Porcine) 30 unit 05/23/20 06:38 05/24/20 05:38 Heparin Flush 10 Unit/Ml 5 Ml Disp.Syrg IV 06/22/20 06:37 30 unit .AFTER EACH USE PRN Administration AFTER EACH INTERMITTENT USE Dopamine HCl/Dextrose 800 mg in 250 mls @ 5.434 mls/hr 05/25/20 08:04 05/25/20 16:30 Dopamine Rtu 800 Mg-D5w 250 Ml (Adult) Premix IV 06/24/20 08:03 3 mcg/kg/min CONTINUOUS PRN 5.43 mls/hr THIS MED IS NOT "PRN" Administration Protocol 3 MCG/KG/MIN Dobutamine HCl/Dextrose 500 mg in 250 mls @ 14.445 mls/hr 05/25/20 18:55 Dobutrex Rtu 500 Mg-D5w 250 Ml Premixed Bag IV 06/23/20 13:16 CONTINUOUS PRN THIS MED IS NOT "PRN" Protocol 5 MCG/KG/MIN Lubiprostone 24 mcg 05/21/20 15:00 05/25/20 09:53 Amitiza 24 Mcg Capsule PO 06/20/20 14:59 24 mcg Q12 DEBBY Administration Medroxyprogesterone Acetate 10 mg 05/21/20 15:30 05/25/20 09:54 Provera 10 Mg Tablet PO 06/20/20 15:29 10 mg DAILY DEBBY Administration Midodrine 5 mg 05/26/20 06:00 Proamatine 5 Mg Tablet PO 06/25/20 05:59 TID@0600,1200,1800 DEBBY Morphine Sulfate 2 mg 05/21/20 20:58 05/25/20 12:51 Morphine 10 Mg/Ml Inj IV 05/28/20 20:57 2 mg Q4HP PRN Administration FOR PAIN Nitroglycerin 0.5 gm 05/26/20 00:00 Nitrol 2% Ointment 1gm Packet TP 06/25/20 00:00 Q6 DEBBY Ondansetron HCl 4 mg 05/20/20 23:03 05/25/20 12:51 Zofran Inj/Pf 4 Mg/2 Ml Sdv IV 06/19/20 23:02 4 mg Q4HP PRN Administration NAUSEA Pantoprazole Sodium 40 mg 05/21/20 15:30 05/25/20 05:[address] Tablet PO 06/20/20 15:29 40 mg Q6AM DEBBY Administration Patient Own Medication 6 mg 05/21/20 22:00 Doxepin Hcl [Silenor] PO 06/20/20 21:59 QHS DEBBY Sacubitril/Valsartan 1 tab 05/21/20 22:00 05/24/20 10:04 Entresto 97 Mg/103 Mg Tablet PO 06/20/20 21:59 1 tab Q12 DEBBY Administration Sodium Chloride 10 ml 05/23/20 06:38 Nacl 0.9% Inj/Pf 10 Ml Sdv IV 06/22/20 06:37 .AFTER EACH USE PRN AFTER EACH INTERMITTENT USE Tramadol HCl 50 mg 05/21/20 13:26 Ultram 50 Mg Tablet PO 05/28/20 13:25 Q6HP PRN FOR PAIN Warfarin Sodium 7.5 mg 05/21/20 22:00 05/24/20 21:44 Jantoven 7.5 Mg Tablet PO 06/20/20 21:59 7.5 mg QHS DEBBY Administration Zolpidem Tartrate 10 mg 05/21/20 22:00 05/24/20 21:33 Ambien 5 Mg Tablet PO 05/28/20 21:59 10 mg QHS DEBBY Administration Discontinued Medications Generic Name Dose Route Start Last Admin Trade Name Freq PRN Reason Stop Dose Admin Amlodipine Besylate 10 mg 05/21/20 15:00 05/24/20 10:07 Norvasc 10 Mg Tablet PO 06/20/20 14:59 Not Given DAILY DEBBY Diphenhydramine HCl 50 mg 05/20/20 14:01 05/20/20 14:35 Benadryl Inj 50 Mg/1 Ml Vial IV 05/20/20 14:02 50 mg NOW ONE Administration Diphenhydramine HCl 50 mg 05/20/20 23:03 05/20/20 23:30 Benadryl 50 Mg Capsule PO 06/19/20 23:02 50 mg Q8HP PRN Administration ITCHING Diphenhydramine HCl Confirm 05/21/20 22:05 05/21/20 23:00 Benadryl Inj 50 Mg/1 Ml Vial Administered 05/21/20 22:06 Not Given Dose 50 mg .ROUTE .STK-MED ONE Furosemide 40 mg 05/20/20 14:01 05/20/20 14:35 Lasix Inj/Pf 40 Mg/4 Ml Sdv IV 05/20/20 14:02 40 mg NOW ONE Administration Furosemide 80 mg 05/21/20 14:00 05/21/20 15:08 Lasix 80 Mg Tablet PO 06/20/20 13:59 80 mg Q8 DEBBY Administration Furosemide Confirm 05/22/20 06:00 05/22/20 06:31 Lasix Inj/Pf 100 Mg/10 Ml Sdv Administered 05/22/20 06:01 Not Given Dose 100 mg .ROUTE .STK-MED ONE Furosemide Confirm 05/22/20 06:17 05/22/20 06:31 Lasix Inj/Pf 100 Mg/10 Ml Sdv Administered 05/22/20 06:18 Not Given Dose 100 mg .ROUTE .STK-MED ONE Furosemide 250 mg/ Sodium 250 mls @ 20 mls/hr 05/21/20 21:12 05/22/20 21:00 Chloride IV 06/20/20 21:11 Infused CONTINUOUS PRN Infusion THIS MED IS NOT "PRN" 20 MG/HR Furosemide 250 mg/ Sodium 250 mls @ 0 mls/hr 05/22/20 06:10 Chloride IV 06/21/20 06:09 CONTINUOUS PRN THIS MED IS NOT "PRN" Furosemide 250 mg/ Sodium 250 mls @ 5 mls/hr 05/22/20 22:29 Chloride IV 06/20/20 21:11 CONTINUOUS PRN THIS MED IS NOT "PRN" 5 MG/HR Sodium Chloride 250 mls @ 999 mls/hr 05/23/20 00:30 05/23/20 03:34 Nacl 0.9% 250 Ml Iv Soln IV 05/23/20 00:45 Infused NOW ONE Infusion Dopamine HCl/Dextrose 800 mg in 250 mls @ 10.763 mls/hr 05/23/20 01:13 Dopamine Rtu 800 Mg-D5w 250 Ml (Adult) Premix IV 06/22/20 01:12 CONTINUOUS PRN THIS MED IS NOT "PRN" Protocol 5 MCG/KG/MIN Sodium Chloride 250 mls @ 999 mls/hr 05/23/20 01:30 05/23/20 03:34 Nacl 0.9% 250 Ml Iv Soln IV 05/23/20 01:45 Infused NOW ONE Infusion Dopamine HCl/Dextrose 800 mg in 250 mls @ 6.458 mls/hr 05/23/20 01:30 05/25/20 02:56 Dopamine Rtu 800 Mg-D5w 250 Ml (Adult) Premix IV 06/22/20 01:12 8.39 mcg/kg/min CONTINUOUS PRN 18.06 mls/hr THIS MED IS NOT "PRN" Administration Protocol 3 MCG/KG/MIN Sodium Chloride 250 mls @ 999 mls/hr 05/23/20 00:30 05/23/20 00:46 Nacl 0.9% 1000 Ml Iv Soln IV 05/23/20 00:45 Infused ONCE ONE Infusion Sodium Chloride 250 mls @ 999 mls/hr 05/23/20 01:00 05/23/20 05:19 Nacl 0.9% 1000 Ml Iv Soln IV 05/23/20 01:15 Infused ONCE ONE Infusion Dobutamine HCl/Dextrose Confirm 05/24/20 13:05 05/24/20 13:26 Dobutrex Rtu 500 Mg-D5w 250 Ml Premixed Bag Administered 05/24/20 13:06 Infused Dose Infusion 500 mg in 250 mls @ ud IV .STK-MED ONE Dobutamine HCl/Dextrose 500 mg in 250 mls @ 14.445 mls/hr 05/24/20 13:17 05/25/20 18:52 Dobutrex Rtu 500 Mg-D5w 250 Ml Premixed Bag IV 06/23/20 13:16 10 mcg/kg/min CONTINUOUS PRN 28.89 mls/hr THIS MED IS NOT "PRN" Titration Protocol 5 MCG/KG/MIN Isosorbide Dinitrate 60 mg 05/21/20 14:00 05/24/20 15:01 Isordil Titradose 20 Mg Tablet PO 06/20/20 13:59 Not Given Q8 DEBBY Metoprolol Tartrate 5 mg 05/20/20 15:16 05/20/20 15:41 Lopressor Inj/Pf 5 Mg/5 Ml Sdv IV 05/20/20 15:17 5 mg NOW ONE Administration Morphine Sulfate 5 mg 05/20/20 14:01 05/20/20 14:35 Morphine 10 Mg/Ml Inj IV 05/20/20 14:02 5 mg NOW ONE Administration Ondansetron HCl Confirm 05/20/20 21:26 05/20/20 22:53 Zofran Inj/Pf 4 Mg/2 Ml Sdv Administered 05/20/20 21:27 Not Given Dose 4 mg .ROUTE .STK-MED ONE Tramadol HCl 50 mg 05/20/20 23:03 05/20/20 23:30 Ultram 50 Mg Tablet PO 05/27/20 23:02 50 mg Q8HP PRN Administration PAIN PHYSICAL EXAMINATION: The patient is moderately obese. In mild respiratory distress. She is well-groomed. Selected Entries 05/25/20 05/25/20 05/25/20 17:45 18:00 19:45 Temperature 97.7 F Temperature Oral Source Pulse Rate 83 83 Respiratory 22 H Rate Blood Pressure 118/70 106/65 Blood Pressure 86 78 Mean BP Location Right Arm O2 Sat by Pulse 97 98 Oximetry Oxygen Delivery Nasal Cannula Method ( includes room air) Fraction of 44 Inspired Oxygen (FIO2) Oxygen Flow 6 Rate Oxygen Delivery Nasal Cannula Method GENERAL: She is alert and oriented x3 HEAD: Atraumatic, normocephalic. EYES: JACKY, sclera anicteric, conjunctiva are normal. ENT: Moist mucous membranes. No oral ulcerations or bleeding gums noted. No obvious ear, nose or throat abnormalities noted. NECK: supple without lymphadenopathy. Trachea is central. No cervical or axillary lymphadenopathy noted. Carotids are 2+, JVD is mildly elevated. LUNGS: There is bilateral dullness in the bases. Is absent breath sounds in the area of dullness. There is bibasilar rales of CHF. CHEST: Palpation of the chest wall shows no significant chest wall tenderness. HEART: [place] BLOCKMASON, No PSH, 1/6 STEVEN aortic area, 1/6 suh systolic murmur mitral area, no rubs, no gallops. ABDOMEN: Soft, no significant tenderness appreciated, normoactive bowel sounds. No guarding, no rebound. No rigidity noted . No masses appreciated. EXTREMITIES: Femorals are diminished. There is no femoral bruits pedal pulses are 1+, no calf tenderness noted. No clubbing or cyanosis. 1+ pedal edema noted NEUROLOGICAL: Focused neurological exam showed no significant neurologic deficit. Normal speech, no focal weakness appreciated. PSYCH: Normal mood, normal affect. Judgment and insight within normal limits. SKIN: No significant ecchymosis, skin is noted to be warm. MUSCULOSKELETAL EXAM: No significant acute joint swelling noted. Labs- Entire Visit 05/20/20 05/20/20 05/20/20 11:47 11:47 11:47 WBC 5.3 RBC 5.58 H Hgb 15.4 Hct 47.3 H MCV 85 MCH 27.5 MCHC 32.5 RDW 19.2 H Plt Count 289 Lymph % (Auto) 11.1 L [place] % (Auto) 7.2 Eos % (Auto) 0.8 Baso % (Auto) 1.1 Absolute Neuts (auto) 4.3 Absolute Lymphs (auto) 0.6 Absolute Monos (auto) 0.4 Absolute Eos (auto) 0.0 Absolute Basos (auto) 0.1 Seg Neutrophils % 79.8 H PT INR INR (Anticoag Therapy) APTT Carbonic Acid HCO3/H2CO3 Ratio ABG pH ABG pCO2 ABG pO2 ABG HCO3 ABG Total CO2 ABG O2 Saturation ABG Base Excess VBG pH VBG pCO2 VBG HCO3 VBG Base Excess FiO2 Sodium 136.2 L Potassium 3.8 Chloride 109 H Carbon Dioxide 21 L Anion Gap 6 BUN 37 H Creatinine 1.72 H Est GFR ( Amer) 39 L Est GFR (MDRD) Non-Af 32 L Glucose 154 H POC Glucose Lactic Acid Calcium 8.6 Total Bilirubin 0.9 Direct Bilirubin 0.1 Neonat Total Bilirubin Not Reportable Neonat Direct Bilirubin Not Reportable Neonat Indirect Bili Not Reportable AST 21 ALT 12 Alkaline Phosphatase 164 H Lactate Dehydrogenase Creatine Kinase 245 H CK-MB (CK-2) 5.41 H Troponin I 0.078 NT-Pro-B Natriuret Pep Total Protein 5.3 L Albumin 2.8 L Urine Color Urine Appearance Urine pH Ur Specific [place] Urine Protein Urine Glucose (UA) Urine Ketones Urine Blood Urine Nitrite Urine Bilirubin Urine Urobilinogen Ur Leukocyte Esterase Urine WBC (Auto) Urine RBC (Auto) U Hyaline Cast (Auto) Urine Bacteria (Auto) Urine RBC Urine WBC Ur Squamous Epith Cells Squamous Epi Cells Auto Urine Bacteria Urine Mucus (Auto) Urine Creatinine Protein/Creatinin Ratio Urine Total Protein Urine Ascorbic Acid Fluid Type Fluid Source Fluid Color Fluid Appearance Fluid Viscosity Fluid pH Fluid WBC Fluid RBC Fluid Seg Neutrophils Fluid Lymphocytes Fluid Monocytes Fluid Eosinophils Fluid Basophils Fluid Glucose Fluid Total Protein Fluid Albumin Fluid LDH Fluid Amylase COVID-19 Source COVID-19 (MELINA) Slides for Path Review 05/20/20 05/20/20 05/20/20 11:47 11:47 11:47 WBC RBC Hgb Hct MCV MCH MCHC RDW Plt Count Lymph % (Auto) [place] % (Auto) Eos % (Auto) Baso % (Auto) Absolute Neuts (auto) Absolute Lymphs (auto) Absolute Monos (auto) Absolute Eos (auto) Absolute Basos (auto) Seg Neutrophils % PT INR INR (Anticoag Therapy) APTT Carbonic Acid HCO3/H2CO3 Ratio ABG pH ABG pCO2 ABG pO2 ABG HCO3 ABG Total CO2 ABG O2 Saturation ABG Base Excess VBG pH 7.40 VBG pCO2 29.1 L VBG HCO3 17.6 L VBG Base Excess -5.6 FiO2 Sodium Potassium Chloride Carbon Dioxide Anion Gap BUN Creatinine Est GFR ( Amer) Est GFR (MDRD) Non-Af Glucose POC Glucose Lactic Acid 1.3 Calcium Total Bilirubin Direct Bilirubin Neonat Total Bilirubin Neonat Direct Bilirubin Neonat Indirect Bili AST ALT Alkaline Phosphatase Lactate Dehydrogenase Creatine Kinase CK-MB (CK-2) Troponin I NT-Pro-B Natriuret Pep 11693 H Total Protein Albumin Urine Color Urine Appearance Urine pH Ur Specific [place] Urine Protein Urine Glucose (UA) Urine Ketones Urine Blood Urine Nitrite Urine Bilirubin Urine Urobilinogen Ur Leukocyte Esterase Urine WBC (Auto) Urine RBC (Auto) U Hyaline Cast (Auto) Urine Bacteria (Auto) Urine RBC Urine WBC Ur Squamous Epith Cells Squamous Epi Cells Auto Urine Bacteria Urine Mucus (Auto) Urine Creatinine Protein/Creatinin Ratio Urine Total Protein Urine Ascorbic Acid Fluid Type Fluid Source Fluid Color Fluid Appearance Fluid Viscosity Fluid pH Fluid WBC Fluid RBC Fluid Seg Neutrophils Fluid Lymphocytes Fluid Monocytes Fluid Eosinophils Fluid Basophils Fluid Glucose Fluid Total Protein Fluid Albumin Fluid LDH Fluid Amylase COVID-19 Source COVID-19 (MELINA) Slides for Path Review 05/20/20 05/20/20 05/20/20 11:47 16:00 16:00 WBC RBC Hgb Hct MCV MCH MCHC RDW Plt Count Lymph % (Auto) [place] % (Auto) Eos % (Auto) Baso % (Auto) Absolute Neuts (auto) Absolute Lymphs (auto) Absolute Monos (auto) Absolute Eos (auto) Absolute Basos (auto) Seg Neutrophils % PT 14.4 INR 1.10 INR (Anticoag Therapy) APTT Carbonic Acid HCO3/H2CO3 Ratio ABG pH ABG pCO2 ABG pO2 ABG HCO3 ABG Total CO2 ABG O2 Saturation ABG Base Excess VBG pH VBG pCO2 VBG HCO3 VBG Base Excess FiO2 Sodium Potassium Chloride Carbon Dioxide Anion Gap BUN Creatinine Est GFR ( Amer) Est GFR (MDRD) Non-Af Glucose POC Glucose Lactic Acid Calcium Total Bilirubin Direct Bilirubin Neonat Total Bilirubin Neonat Direct Bilirubin Neonat Indirect Bili AST ALT Alkaline Phosphatase Lactate Dehydrogenase Creatine Kinase CK-MB (CK-2) Troponin I 0.098 NT-Pro-B Natriuret Pep Total Protein Albumin Urine Color YELLOW Urine Appearance SLIGHTLY-CLOUDY Urine pH 5.0 Ur Specific [place] 1.019 Urine Protein >=500 H Urine Glucose (UA) NEGATIVE Urine Ketones NEGATIVE Urine Blood SMALL H Urine Nitrite NEGATIVE Urine Bilirubin NEGATIVE Urine Urobilinogen NEGATIVE Ur Leukocyte Esterase NEGATIVE Urine WBC (Auto) 1 Urine RBC (Auto) 1 U Hyaline Cast (Auto) Urine Bacteria (Auto) Urine RBC Urine WBC Ur Squamous Epith Cells Squamous Epi Cells Auto 1 Urine Bacteria Urine Mucus (Auto) RARE Urine Creatinine Protein/Creatinin Ratio Urine Total Protein Urine Ascorbic Acid NEGATIVE Fluid Type Fluid Source Fluid Color Fluid Appearance Fluid Viscosity Fluid pH Fluid WBC Fluid RBC Fluid Seg Neutrophils Fluid Lymphocytes Fluid Monocytes Fluid Eosinophils Fluid Basophils Fluid Glucose Fluid Total Protein Fluid Albumin Fluid LDH Fluid Amylase COVID-19 Source COVID-19 (MELINA) Slides for Path Review 05/20/20 05/20/20 05/20/20 16:35 17:44 22:52 WBC RBC Hgb Hct MCV MCH MCHC RDW Plt Count Lymph % (Auto) [place] % (Auto) Eos % (Auto) Baso % (Auto) Absolute Neuts (auto) Absolute Lymphs (auto) Absolute Monos (auto) Absolute Eos (auto) Absolute Basos (auto) Seg Neutrophils % PT INR INR (Anticoag Therapy) APTT Carbonic Acid 0.94 L HCO3/H2CO3 Ratio 18:1 ABG pH 7.35 ABG pCO2 31.3 L ABG pO2 85.9 ABG HCO3 17.0 L ABG Total CO2 18.0 L ABG O2 Saturation 96.2 ABG Base Excess -7.2 VBG pH VBG pCO2 VBG HCO3 VBG Base Excess FiO2 30% Sodium Potassium Chloride Carbon Dioxide Anion Gap BUN Creatinine Est GFR ( Amer) Est GFR (MDRD) Non-Af Glucose POC Glucose 161 H Lactic Acid Calcium Total Bilirubin Direct Bilirubin Neonat Total Bilirubin Neonat Direct Bilirubin Neonat Indirect Bili AST ALT Alkaline Phosphatase Lactate Dehydrogenase Creatine Kinase CK-MB (CK-2) Troponin I NT-Pro-B Natriuret Pep Total Protein Albumin Urine Color Urine Appearance Urine pH Ur Specific [place] Urine Protein Urine Glucose (UA) Urine Ketones Urine Blood Urine Nitrite Urine Bilirubin Urine Urobilinogen Ur Leukocyte Esterase Urine WBC (Auto) Urine RBC (Auto) U Hyaline Cast (Auto) Urine Bacteria (Auto) Urine RBC Urine WBC Ur Squamous Epith Cells Squamous Epi Cells Auto Urine Bacteria Urine Mucus (Auto) Urine Creatinine Protein/Creatinin Ratio Urine Total Protein Urine Ascorbic Acid Fluid Type Fluid Source Fluid Color Fluid Appearance Fluid Viscosity Fluid pH Fluid WBC Fluid RBC Fluid Seg Neutrophils Fluid Lymphocytes Fluid Monocytes Fluid Eosinophils Fluid Basophils Fluid Glucose Fluid Total Protein Fluid Albumin Fluid LDH Fluid Amylase COVID-19 Source NASOPHARYNGEAL COVID-19 (MELINA) NOT DETECTED Slides for Path Review 05/21/20 05/21/20 05/21/20 08:36 11:16 11:17 WBC 4.5 RBC 5.04 Hgb 13.8 Hct 42.8 MCV 85 MCH 27.4 MCHC 32.3 RDW 19.2 H Plt Count 240 Lymph % (Auto) [place] % (Auto) Eos % (Auto) Baso % (Auto) Absolute Neuts (auto) Absolute Lymphs (auto) Absolute Monos (auto) Absolute Eos (auto) Absolute Basos (auto) Seg Neutrophils % PT INR INR (Anticoag Therapy) APTT Carbonic Acid HCO3/H2CO3 Ratio ABG pH ABG pCO2 ABG pO2 ABG HCO3 ABG Total CO2 ABG O2 Saturation ABG Base Excess VBG pH VBG pCO2 VBG HCO3 VBG Base Excess FiO2 Sodium Potassium Chloride Carbon Dioxide Anion Gap BUN Creatinine Est GFR ( Amer) Est GFR (MDRD) Non-Af Glucose POC Glucose 93 122 H Lactic Acid Calcium Total Bilirubin Direct Bilirubin Neonat Total Bilirubin Neonat Direct Bilirubin Neonat Indirect Bili AST ALT Alkaline Phosphatase Lactate Dehydrogenase Creatine Kinase CK-MB (CK-2) Troponin I NT-Pro-B Natriuret Pep Total Protein Albumin Urine Color Urine Appearance Urine pH Ur Specific [place] Urine Protein Urine Glucose (UA) Urine Ketones Urine Blood Urine Nitrite Urine Bilirubin Urine Urobilinogen Ur Leukocyte Esterase Urine WBC (Auto) Urine RBC (Auto) U Hyaline Cast (Auto) Urine Bacteria (Auto) Urine RBC Urine WBC Ur Squamous Epith Cells Squamous Epi Cells Auto Urine Bacteria Urine Mucus (Auto) Urine Creatinine Protein/Creatinin Ratio Urine Total Protein Urine Ascorbic Acid Fluid Type Fluid Source Fluid Color Fluid Appearance Fluid Viscosity Fluid pH Fluid WBC Fluid RBC Fluid Seg Neutrophils Fluid Lymphocytes Fluid Monocytes Fluid Eosinophils Fluid Basophils Fluid Glucose Fluid Total Protein Fluid Albumin Fluid LDH Fluid Amylase COVID-19 Source COVID-19 (MELINA) Slides for Path Review 05/21/20 05/21/20 05/21/20 13:28 13:28 16:28 WBC RBC Hgb Hct MCV MCH MCHC RDW Plt Count Lymph % (Auto) [place] % (Auto) Eos % (Auto) Baso % (Auto) Absolute Neuts (auto) Absolute Lymphs (auto) Absolute Monos (auto) Absolute Eos (auto) Absolute Basos (auto) Seg Neutrophils % PT INR INR (Anticoag Therapy) APTT Carbonic Acid HCO3/H2CO3 Ratio ABG pH ABG pCO2 ABG pO2 ABG HCO3 ABG Total CO2 ABG O2 Saturation ABG Base Excess VBG pH VBG pCO2 VBG HCO3 VBG Base Excess FiO2 Sodium Potassium Chloride Carbon Dioxide Anion Gap BUN Creatinine Est GFR ( Amer) Est GFR (MDRD) Non-Af Glucose POC Glucose 122 H Lactic Acid Calcium Total Bilirubin Direct Bilirubin Neonat Total Bilirubin Neonat Direct Bilirubin Neonat Indirect Bili AST ALT Alkaline Phosphatase Lactate Dehydrogenase Creatine Kinase CK-MB (CK-2) Troponin I NT-Pro-B Natriuret Pep Total Protein Albumin Urine Color [place] Urine Appearance CLOUDY Urine pH 5.0 Ur Specific [place] 1.016 Urine Protein >=500 H Urine Glucose (UA) NEGATIVE Urine Ketones NEGATIVE Urine Blood LARGE H Urine Nitrite NEGATIVE Urine Bilirubin NEGATIVE Urine Urobilinogen 2.0 H Ur Leukocyte Esterase TRACE H Urine WBC (Auto) 3 Urine RBC (Auto) >182 U Hyaline Cast (Auto) 26 Urine Bacteria (Auto) TRACE Urine RBC Urine WBC Ur Squamous Epith Cells Squamous Epi Cells Auto 1 Urine Bacteria Urine Mucus (Auto) OCC Urine Creatinine 211.1 Protein/Creatinin Ratio 1.6 H Urine Total Protein 333.2 H Urine Ascorbic Acid NEGATIVE Fluid Type Fluid Source Fluid Color Fluid Appearance Fluid Viscosity Fluid pH Fluid WBC Fluid RBC Fluid Seg Neutrophils Fluid Lymphocytes Fluid Monocytes Fluid Eosinophils Fluid Basophils Fluid Glucose Fluid Total Protein Fluid Albumin Fluid LDH Fluid Amylase COVID-19 Source COVID-19 (MELINA) Slides for Path Review 05/21/20 05/21/20 05/21/20 21:47 21:47 21:47 WBC RBC Hgb Hct MCV MCH MCHC RDW Plt Count Lymph % (Auto) [place] % (Auto) Eos % (Auto) Baso % (Auto) Absolute Neuts (auto) Absolute Lymphs (auto) Absolute Monos (auto) Absolute Eos (auto) Absolute Basos (auto) Seg Neutrophils % PT INR INR (Anticoag Therapy) APTT 31.8 Carbonic Acid HCO3/H2CO3 Ratio ABG pH ABG pCO2 ABG pO2 ABG HCO3 ABG Total CO2 ABG O2 Saturation ABG Base Excess VBG pH VBG pCO2 VBG HCO3 VBG Base Excess FiO2 Sodium Potassium Chloride Carbon Dioxide Anion Gap BUN Creatinine Est GFR ( Amer) Est GFR (MDRD) Non-Af Glucose POC Glucose Lactic Acid Calcium Total Bilirubin Direct Bilirubin Neonat Total Bilirubin Neonat Direct Bilirubin Neonat Indirect Bili AST ALT Alkaline Phosphatase Lactate Dehydrogenase 318 H Creatine Kinase 244 H CK-MB (CK-2) 3.85 Troponin I 0.076 NT-Pro-B Natriuret Pep Total Protein 4.5 L Albumin Urine Color Urine Appearance Urine pH Ur Specific [place] Urine Protein Urine Glucose (UA) Urine Ketones Urine Blood Urine Nitrite Urine Bilirubin Urine Urobilinogen Ur Leukocyte Esterase Urine WBC (Auto) Urine RBC (Auto) U Hyaline Cast (Auto) Urine Bacteria (Auto) Urine RBC Urine WBC Ur Squamous Epith Cells Squamous Epi Cells Auto Urine Bacteria Urine Mucus (Auto) Urine Creatinine Protein/Creatinin Ratio Urine Total Protein Urine Ascorbic Acid Fluid Type Fluid Source Fluid Color Fluid Appearance Fluid Viscosity Fluid pH Fluid WBC Fluid RBC Fluid Seg Neutrophils Fluid Lymphocytes Fluid Monocytes Fluid Eosinophils Fluid Basophils Fluid Glucose Fluid Total Protein Fluid Albumin Fluid LDH Fluid Amylase COVID-19 Source COVID-19 (MELINA) Slides for Path Review 05/21/20 05/22/20 05/22/20 21:57 05:44 05:44 WBC RBC Hgb Hct MCV MCH MCHC RDW Plt Count Lymph % (Auto) [place] % (Auto) Eos % (Auto) Baso % (Auto) Absolute Neuts (auto) Absolute Lymphs (auto) Absolute Monos (auto) Absolute Eos (auto) Absolute Basos (auto) Seg Neutrophils % PT INR INR (Anticoag Therapy) APTT Carbonic Acid HCO3/H2CO3 Ratio ABG pH ABG pCO2 ABG pO2 ABG HCO3 ABG Total CO2 ABG O2 Saturation ABG Base Excess VBG pH VBG pCO2 VBG HCO3 VBG Base Excess FiO2 Sodium Potassium Chloride Carbon Dioxide Anion Gap BUN Creatinine Est GFR ( Amer) Est GFR (MDRD) Non-Af Glucose POC Glucose 109 Lactic Acid Calcium Total Bilirubin Direct Bilirubin Neonat Total Bilirubin Neonat Direct Bilirubin Neonat Indirect Bili AST ALT Alkaline Phosphatase Lactate Dehydrogenase Creatine Kinase 201 H CK-MB (CK-2) 3.26 Troponin I 0.063 NT-Pro-B Natriuret Pep Total Protein Albumin Urine Color Urine Appearance Urine pH Ur Specific [place] Urine Protein Urine Glucose (UA) Urine Ketones Urine Blood Urine Nitrite Urine Bilirubin Urine Urobilinogen Ur Leukocyte Esterase Urine WBC (Auto) Urine RBC (Auto) U Hyaline Cast (Auto) Urine Bacteria (Auto) Urine RBC Urine WBC Ur Squamous Epith Cells Squamous Epi Cells Auto Urine Bacteria Urine Mucus (Auto) Urine Creatinine Protein/Creatinin Ratio Urine Total Protein Urine Ascorbic Acid Fluid Type Fluid Source Fluid Color Fluid Appearance Fluid Viscosity Fluid pH Fluid WBC Fluid RBC Fluid Seg Neutrophils Fluid Lymphocytes Fluid Monocytes Fluid Eosinophils Fluid Basophils Fluid Glucose Fluid Total Protein Fluid Albumin Fluid LDH Fluid Amylase COVID-19 Source COVID-19 (MELINA) Slides for Path Review 05/22/20 05/22/20 05/22/20 05:44 08:26 11:41 WBC RBC Hgb Hct MCV MCH MCHC RDW Plt Count Lymph % (Auto) [place] % (Auto) Eos % (Auto) Baso % (Auto) Absolute Neuts (auto) Absolute Lymphs (auto) Absolute Monos (auto) Absolute Eos (auto) Absolute Basos (auto) Seg Neutrophils % PT 15.5 H INR 1.21 INR (Anticoag Therapy) APTT Carbonic Acid HCO3/H2CO3 Ratio ABG pH ABG pCO2 ABG pO2 ABG HCO3 ABG Total CO2 ABG O2 Saturation ABG Base Excess VBG pH VBG pCO2 VBG HCO3 VBG Base Excess FiO2 Sodium Potassium Chloride Carbon Dioxide Anion Gap BUN Creatinine Est GFR ( Amer) Est GFR (MDRD) Non-Af Glucose POC Glucose 110 140 H Lactic Acid Calcium Total Bilirubin Direct Bilirubin Neonat Total Bilirubin Neonat Direct Bilirubin Neonat Indirect Bili AST ALT Alkaline Phosphatase Lactate Dehydrogenase Creatine Kinase CK-MB (CK-2) Troponin I NT-Pro-B Natriuret Pep Total Protein Albumin Urine Color Urine Appearance Urine pH Ur Specific [place] Urine Protein Urine Glucose (UA) Urine Ketones Urine Blood Urine Nitrite Urine Bilirubin Urine Urobilinogen Ur Leukocyte Esterase Urine WBC (Auto) Urine RBC (Auto) U Hyaline Cast (Auto) Urine Bacteria (Auto) Urine RBC Urine WBC Ur Squamous Epith Cells Squamous Epi Cells Auto Urine Bacteria Urine Mucus (Auto) Urine Creatinine Protein/Creatinin Ratio Urine Total Protein Urine Ascorbic Acid Fluid Type Fluid Source Fluid Color Fluid Appearance Fluid Viscosity Fluid pH Fluid WBC Fluid RBC Fluid Seg Neutrophils Fluid Lymphocytes Fluid Monocytes Fluid Eosinophils Fluid Basophils Fluid Glucose Fluid Total Protein Fluid Albumin Fluid LDH Fluid Amylase COVID-19 Source COVID-19 (MELINA) Slides for Path Review 05/22/20 05/22/20 05/22/20 14:10 14:10 14:10 WBC RBC Hgb Hct MCV MCH MCHC RDW Plt Count Lymph % (Auto) [place] % (Auto) Eos % (Auto) Baso % (Auto) Absolute Neuts (auto) Absolute Lymphs (auto) Absolute Monos (auto) Absolute Eos (auto) Absolute Basos (auto) Seg Neutrophils % PT INR INR (Anticoag Therapy) APTT Carbonic Acid HCO3/H2CO3 Ratio ABG pH ABG pCO2 ABG pO2 ABG HCO3 ABG Total CO2 ABG O2 Saturation ABG Base Excess VBG pH VBG pCO2 VBG HCO3 VBG Base Excess FiO2 Sodium Potassium Chloride Carbon Dioxide Anion Gap BUN Creatinine Est GFR ( Amer) Est GFR (MDRD) Non-Af Glucose POC Glucose Lactic Acid Calcium Total Bilirubin Direct Bilirubin Neonat Total Bilirubin Neonat Direct Bilirubin Neonat Indirect Bili AST ALT Alkaline Phosphatase Lactate Dehydrogenase Creatine Kinase CK-MB (CK-2) Troponin I NT-Pro-B Natriuret Pep Total Protein Albumin Urine Color Urine Appearance Urine pH Ur Specific [place] Urine Protein Urine Glucose (UA) Urine Ketones Urine Blood Urine Nitrite Urine Bilirubin Urine Urobilinogen Ur Leukocyte Esterase Urine WBC (Auto) Urine RBC (Auto) U Hyaline Cast (Auto) Urine Bacteria (Auto) Urine RBC Urine WBC Ur Squamous Epith Cells Squamous Epi Cells Auto Urine Bacteria Urine Mucus (Auto) Urine Creatinine Protein/Creatinin Ratio Urine Total Protein Urine Ascorbic Acid Fluid Type PERITONEAL Fluid Source ABDOMEN Fluid Color STRAW Fluid Appearance CLEAR Fluid Viscosity LIQUID Fluid pH 7.6 Fluid WBC 21 Fluid RBC 508 Fluid Seg Neutrophils 36 Fluid Lymphocytes 30 Fluid Monocytes 34 Fluid Eosinophils 0 Fluid Basophils 0 Fluid Glucose 134 Fluid Total Protein 1.1 Fluid Albumin 0.6 Fluid LDH 77 Fluid Amylase 10 COVID-19 Source COVID-19 (MELINA) Slides for Path Review SEE COMMENT 05/22/20 05/22/20 05/22/20 15:00 15:15 15:15 WBC RBC Hgb Hct MCV MCH MCHC RDW Plt Count Lymph % (Auto) [place] % (Auto) Eos % (Auto) Baso % (Auto) Absolute Neuts (auto) Absolute Lymphs (auto) Absolute Monos (auto) Absolute Eos (auto) Absolute Basos (auto) Seg Neutrophils % PT INR INR (Anticoag Therapy) APTT Carbonic Acid HCO3/H2CO3 Ratio ABG pH ABG pCO2 ABG pO2 ABG HCO3 ABG Total CO2 ABG O2 Saturation ABG Base Excess VBG pH VBG pCO2 VBG HCO3 VBG Base Excess FiO2 Sodium 136.5 L Potassium 4.0 Chloride 107 Carbon Dioxide 18 L Anion Gap 12 BUN 54 H Creatinine 2.84 H Est GFR ( Amer) 22 L Est GFR (MDRD) Non-Af 18 L Glucose 100 POC Glucose Lactic Acid Calcium 8.0 L Total Bilirubin 0.9 Direct Bilirubin 0.4 Neonat Total Bilirubin Not Reportable Neonat Direct Bilirubin Not Reportable Neonat Indirect Bili Not Reportable AST 32 ALT 11 Alkaline Phosphatase 141 H Lactate Dehydrogenase Creatine Kinase 315 H CK-MB (CK-2) 4.51 Troponin I 0.060 NT-Pro-B Natriuret Pep Total Protein 5.3 L Albumin 2.7 L Urine Color Urine Appearance Urine pH Ur Specific [place] Urine Protein Urine Glucose (UA) Urine Ketones Urine Blood Urine Nitrite Urine Bilirubin Urine Urobilinogen Ur Leukocyte Esterase Urine WBC (Auto) Urine RBC (Auto) U Hyaline Cast (Auto) Urine Bacteria (Auto) Urine RBC Urine WBC Ur Squamous Epith Cells Squamous Epi Cells Auto Urine Bacteria Urine Mucus (Auto) Urine Creatinine Protein/Creatinin Ratio Urine Total Protein Urine Ascorbic Acid Fluid Type Fluid Source Fluid Color Fluid Appearance Fluid Viscosity Fluid pH Fluid WBC Fluid RBC Fluid Seg Neutrophils Fluid Lymphocytes Fluid Monocytes Fluid Eosinophils Fluid Basophils Fluid Glucose Fluid Total Protein Fluid Albumin Fluid LDH Fluid Amylase COVID-19 Source COVID-19 (MELINA) Slides for Path Review 05/22/20 05/22/20 05/22/20 16:23 21:13 22:13 WBC RBC Hgb Hct MCV MCH MCHC RDW Plt Count Lymph % (Auto) [place] % (Auto) Eos % (Auto) Baso % (Auto) Absolute Neuts (auto) Absolute Lymphs (auto) Absolute Monos (auto) Absolute Eos (auto) Absolute Basos (auto) Seg Neutrophils % PT INR INR (Anticoag Therapy) APTT Carbonic Acid HCO3/H2CO3 Ratio ABG pH ABG pCO2 ABG pO2 ABG HCO3 ABG Total CO2 ABG O2 Saturation ABG Base Excess VBG pH VBG pCO2 VBG HCO3 VBG Base Excess FiO2 Sodium Potassium Chloride Carbon Dioxide Anion Gap BUN Creatinine Est GFR ( Amer) Est GFR (MDRD) Non-Af Glucose POC Glucose 99 119 H 186 H Lactic Acid Calcium Total Bilirubin Direct Bilirubin Neonat Total Bilirubin Neonat Direct Bilirubin Neonat Indirect Bili AST ALT Alkaline Phosphatase Lactate Dehydrogenase Creatine Kinase CK-MB (CK-2) Troponin I NT-Pro-B Natriuret Pep Total Protein Albumin Urine Color Urine Appearance Urine pH Ur Specific [place] Urine Protein Urine Glucose (UA) Urine Ketones Urine Blood Urine Nitrite Urine Bilirubin Urine Urobilinogen Ur Leukocyte Esterase Urine WBC (Auto) Urine RBC (Auto) U Hyaline Cast (Auto) Urine Bacteria (Auto) Urine RBC Urine WBC Ur Squamous Epith Cells Squamous Epi Cells Auto Urine Bacteria Urine Mucus (Auto) Urine Creatinine Protein/Creatinin Ratio Urine Total Protein Urine Ascorbic Acid Fluid Type Fluid Source Fluid Color Fluid Appearance Fluid Viscosity Fluid pH Fluid WBC Fluid RBC Fluid Seg Neutrophils Fluid Lymphocytes Fluid Monocytes Fluid Eosinophils Fluid Basophils Fluid Glucose Fluid Total Protein Fluid Albumin Fluid LDH Fluid Amylase COVID-19 Source COVID-19 (MELINA) Slides for Path Review 05/23/20 05/23/20 05/23/20 06:45 07:30 11:43 WBC RBC Hgb Hct MCV MCH MCHC RDW Plt Count Lymph % (Auto) [place] % (Auto) Eos % (Auto) Baso % (Auto) Absolute Neuts (auto) Absolute Lymphs (auto) Absolute Monos (auto) Absolute Eos (auto) Absolute Basos (auto) Seg Neutrophils % PT 17.6 H INR 1.43 INR (Anticoag Therapy) APTT Carbonic Acid HCO3/H2CO3 Ratio ABG pH ABG pCO2 ABG pO2 ABG HCO3 ABG Total CO2 ABG O2 Saturation ABG Base Excess VBG pH VBG pCO2 VBG HCO3 VBG Base Excess FiO2 Sodium Potassium Chloride Carbon Dioxide Anion Gap BUN Creatinine Est GFR ( Amer) Est GFR (MDRD) Non-Af Glucose POC Glucose 149 H 198 H Lactic Acid Calcium Total Bilirubin Direct Bilirubin Neonat Total Bilirubin Neonat Direct Bilirubin Neonat Indirect Bili AST ALT Alkaline Phosphatase Lactate Dehydrogenase Creatine Kinase CK-MB (CK-2) Troponin I NT-Pro-B Natriuret Pep Total Protein Albumin Urine Color Urine Appearance Urine pH Ur Specific [place] Urine Protein Urine Glucose (UA) Urine Ketones Urine Blood Urine Nitrite Urine Bilirubin Urine Urobilinogen Ur Leukocyte Esterase Urine WBC (Auto) Urine RBC (Auto) U Hyaline Cast (Auto) Urine Bacteria (Auto) Urine RBC Urine WBC Ur Squamous Epith Cells Squamous Epi Cells Auto Urine Bacteria Urine Mucus (Auto) Urine Creatinine Protein/Creatinin Ratio Urine Total Protein Urine Ascorbic Acid Fluid Type Fluid Source Fluid Color Fluid Appearance Fluid Viscosity Fluid pH Fluid WBC Fluid RBC Fluid Seg Neutrophils Fluid Lymphocytes Fluid Monocytes Fluid Eosinophils Fluid Basophils Fluid Glucose Fluid Total Protein Fluid Albumin Fluid LDH Fluid Amylase COVID-19 Source COVID-19 (MELINA) Slides for Path Review 05/23/20 05/23/20 05/23/20 16:24 20:19 21:30 WBC RBC Hgb Hct MCV MCH MCHC RDW Plt Count Lymph % (Auto) [place] % (Auto) Eos % (Auto) Baso % (Auto) Absolute Neuts (auto) Absolute Lymphs (auto) Absolute Monos (auto) Absolute Eos (auto) Absolute Basos (auto) Seg Neutrophils % PT INR INR (Anticoag Therapy) APTT Carbonic Acid HCO3/H2CO3 Ratio ABG pH ABG pCO2 ABG pO2 ABG HCO3 ABG Total CO2 ABG O2 Saturation ABG Base Excess VBG pH VBG pCO2 VBG HCO3 VBG Base Excess FiO2 Sodium Potassium Chloride Carbon Dioxide Anion Gap BUN Creatinine Est GFR ( Amer) Est GFR (MDRD) Non-Af Glucose POC Glucose 208 H 206 H Lactic Acid Calcium Total Bilirubin Direct Bilirubin Neonat Total Bilirubin Neonat Direct Bilirubin Neonat Indirect Bili AST ALT Alkaline Phosphatase Lactate Dehydrogenase Creatine Kinase CK-MB (CK-2) Troponin I NT-Pro-B Natriuret Pep Total Protein Albumin Urine Color YELLOW Urine Appearance CLEAR Urine pH 5.0 Ur Specific [place] 1.013 Urine Protein NEGATIVE Urine Glucose (UA) NEGATIVE Urine Ketones NEGATIVE Urine Blood SMALL H Urine Nitrite NEGATIVE Urine Bilirubin NEGATIVE Urine Urobilinogen 2.0 H Ur Leukocyte Esterase TRACE H Urine WBC (Auto) Urine RBC (Auto) U Hyaline Cast (Auto) Urine Bacteria (Auto) Urine RBC 1-5 Urine WBC 1-5 Ur Squamous Epith Cells FEW Squamous Epi Cells Auto Urine Bacteria TRACE Urine Mucus (Auto) Urine Creatinine Protein/Creatinin Ratio Urine Total Protein Urine Ascorbic Acid NEGATIVE Fluid Type Fluid Source Fluid Color Fluid Appearance Fluid Viscosity Fluid pH Fluid WBC Fluid RBC Fluid Seg Neutrophils Fluid Lymphocytes Fluid Monocytes Fluid Eosinophils Fluid Basophils Fluid Glucose Fluid Total Protein Fluid Albumin Fluid LDH Fluid Amylase COVID-19 Source COVID-19 (MELINA) Slides for Path Review 05/24/20 05/24/20 05/24/20 06:00 06:00 07:45 WBC 5.3 RBC 4.71 Hgb 12.7 Hct 39.7 MCV 84 MCH 26.9 L MCHC 31.9 L RDW 19.0 H Plt Count 231 Lymph % (Auto) [place] % (Auto) Eos % (Auto) Baso % (Auto) Absolute Neuts (auto) Absolute Lymphs (auto) Absolute Monos (auto) Absolute Eos (auto) Absolute Basos (auto) Seg Neutrophils % PT 17.8 H INR 1.45 INR (Anticoag Therapy) APTT Carbonic Acid HCO3/H2CO3 Ratio ABG pH ABG pCO2 ABG pO2 ABG HCO3 ABG Total CO2 ABG O2 Saturation ABG Base Excess VBG pH VBG pCO2 VBG HCO3 VBG Base Excess FiO2 Sodium Potassium Chloride Carbon Dioxide Anion Gap BUN Creatinine Est GFR ( Amer) Est GFR (MDRD) Non-Af Glucose POC Glucose 141 H Lactic Acid Calcium Total Bilirubin Direct Bilirubin Neonat Total Bilirubin Neonat Direct Bilirubin Neonat Indirect Bili AST ALT Alkaline Phosphatase Lactate Dehydrogenase Creatine Kinase CK-MB (CK-2) Troponin I NT-Pro-B Natriuret Pep Total Protein Albumin Urine Color Urine Appearance Urine pH Ur Specific [place] Urine Protein Urine Glucose (UA) Urine Ketones Urine Blood Urine Nitrite Urine Bilirubin Urine Urobilinogen Ur Leukocyte Esterase Urine WBC (Auto) Urine RBC (Auto) U Hyaline Cast (Auto) Urine Bacteria (Auto) Urine RBC Urine WBC Ur Squamous Epith Cells Squamous Epi Cells Auto Urine Bacteria Urine Mucus (Auto) Urine Creatinine Protein/Creatinin Ratio Urine Total Protein Urine Ascorbic Acid Fluid Type Fluid Source Fluid Color Fluid Appearance Fluid Viscosity Fluid pH Fluid WBC Fluid RBC Fluid Seg Neutrophils Fluid Lymphocytes Fluid Monocytes Fluid Eosinophils Fluid Basophils Fluid Glucose Fluid Total Protein Fluid Albumin Fluid LDH Fluid Amylase COVID-19 Source COVID-19 (MELINA) Slides for Path Review 05/24/20 05/24/20 05/24/20 10:55 16:50 21:09 WBC RBC Hgb Hct MCV MCH MCHC RDW Plt Count Lymph % (Auto) [place] % (Auto) Eos % (Auto) Baso % (Auto) Absolute Neuts (auto) Absolute Lymphs (auto) Absolute Monos (auto) Absolute Eos (auto) Absolute Basos (auto) Seg Neutrophils % PT INR INR (Anticoag Therapy) APTT Carbonic Acid HCO3/H2CO3 Ratio ABG pH ABG pCO2 ABG pO2 ABG HCO3 ABG Total CO2 ABG O2 Saturation ABG Base Excess VBG pH VBG pCO2 VBG HCO3 VBG Base Excess FiO2 Sodium Potassium Chloride Carbon Dioxide Anion Gap BUN Creatinine Est GFR ( Amer) Est GFR (MDRD) Non-Af Glucose POC Glucose 219 H 160 H 149 H Lactic Acid Calcium Total Bilirubin Direct Bilirubin Neonat Total Bilirubin Neonat Direct Bilirubin Neonat Indirect Bili AST ALT Alkaline Phosphatase Lactate Dehydrogenase Creatine Kinase CK-MB (CK-2) Troponin I NT-Pro-B Natriuret Pep Total Protein Albumin Urine Color Urine Appearance Urine pH Ur Specific [place] Urine Protein Urine Glucose (UA) Urine Ketones Urine Blood Urine Nitrite Urine Bilirubin Urine Urobilinogen Ur Leukocyte Esterase Urine WBC (Auto) Urine RBC (Auto) U Hyaline Cast (Auto) Urine Bacteria (Auto) Urine RBC Urine WBC Ur Squamous Epith Cells Squamous Epi Cells Auto Urine Bacteria Urine Mucus (Auto) Urine Creatinine Protein/Creatinin Ratio Urine Total Protein Urine Ascorbic Acid Fluid Type Fluid Source Fluid Color Fluid Appearance Fluid Viscosity Fluid pH Fluid WBC Fluid RBC Fluid Seg Neutrophils Fluid Lymphocytes Fluid Monocytes Fluid Eosinophils Fluid Basophils Fluid Glucose Fluid Total Protein Fluid Albumin Fluid LDH Fluid Amylase COVID-19 Source COVID-19 (MELINA) Slides for Path Review 05/25/20 05/25/20 05/25/20 06:10 07:00 07:48 WBC RBC Hgb Hct MCV MCH MCHC RDW Plt Count Lymph % (Auto) [place] % (Auto) Eos % (Auto) Baso % (Auto) Absolute Neuts (auto) Absolute Lymphs (auto) Absolute Monos (auto) Absolute Eos (auto) Absolute Basos (auto) Seg Neutrophils % PT Cancelled 17.3 H INR Cancelled 1.40 INR (Anticoag Therapy) Cancelled APTT Carbonic Acid HCO3/H2CO3 Ratio ABG pH ABG pCO2 ABG pO2 ABG HCO3 ABG Total CO2 ABG O2 Saturation ABG Base Excess VBG pH VBG pCO2 VBG HCO3 VBG Base Excess FiO2 Sodium Potassium Chloride Carbon Dioxide Anion Gap BUN Creatinine Est GFR ( Amer) Est GFR (MDRD) Non-Af Glucose POC Glucose 102 Lactic Acid Calcium Total Bilirubin Direct Bilirubin Neonat Total Bilirubin Neonat Direct Bilirubin Neonat Indirect Bili AST ALT Alkaline Phosphatase Lactate Dehydrogenase Creatine Kinase CK-MB (CK-2) Troponin I NT-Pro-B Natriuret Pep Total Protein Albumin Urine Color Urine Appearance Urine pH Ur Specific [place] Urine Protein Urine Glucose (UA) Urine Ketones Urine Blood Urine Nitrite Urine Bilirubin Urine Urobilinogen Ur Leukocyte Esterase Urine WBC (Auto) Urine RBC (Auto) U Hyaline Cast (Auto) Urine Bacteria (Auto) Urine RBC Urine WBC Ur Squamous Epith Cells Squamous Epi Cells Auto Urine Bacteria Urine Mucus (Auto) Urine Creatinine Protein/Creatinin Ratio Urine Total Protein Urine Ascorbic Acid Fluid Type Fluid Source Fluid Color Fluid Appearance Fluid Viscosity Fluid pH Fluid WBC Fluid RBC Fluid Seg Neutrophils Fluid Lymphocytes Fluid Monocytes Fluid Eosinophils Fluid Basophils Fluid Glucose Fluid Total Protein Fluid Albumin Fluid LDH Fluid Amylase COVID-19 Source COVID-19 (MELINA) Slides for Path Review 05/25/20 05/25/20 05/25/20 11:30 11:38 16:54 WBC RBC Hgb Hct MCV MCH MCHC RDW Plt Count Lymph % (Auto) [place] % (Auto) Eos % (Auto) Baso % (Auto) Absolute Neuts (auto) Absolute Lymphs (auto) Absolute Monos (auto) Absolute Eos (auto) Absolute Basos (auto) Seg Neutrophils % PT INR INR (Anticoag Therapy) APTT Carbonic Acid HCO3/H2CO3 Ratio ABG pH ABG pCO2 ABG pO2 ABG HCO3 ABG Total CO2 ABG O2 Saturation ABG Base Excess VBG pH VBG pCO2 VBG HCO3 VBG Base Excess FiO2 Sodium Potassium Chloride Carbon Dioxide Anion Gap BUN Creatinine Est GFR ( Amer) Est GFR (MDRD) Non-Af Glucose POC Glucose 130 H 101 Lactic Acid Calcium Total Bilirubin Direct Bilirubin Neonat Total Bilirubin Neonat Direct Bilirubin Neonat Indirect Bili AST ALT Alkaline Phosphatase Lactate Dehydrogenase Creatine Kinase CK-MB (CK-2) Troponin I NT-Pro-B Natriuret Pep Total Protein Albumin Urine Color YELLOW Urine Appearance CLEAR Urine pH 5.0 Ur Specific [place] 1.013 Urine Protein NEGATIVE Urine Glucose (UA) NEGATIVE Urine Ketones NEGATIVE Urine Blood SMALL H Urine Nitrite NEGATIVE Urine Bilirubin NEGATIVE Urine Urobilinogen NEGATIVE Ur Leukocyte Esterase NEGATIVE Urine WBC (Auto) 0 Urine RBC (Auto) 1 U Hyaline Cast (Auto) Urine Bacteria (Auto) TRACE Urine RBC Urine WBC Ur Squamous Epith Cells Squamous Epi Cells Auto <1 Urine Bacteria Urine Mucus (Auto) RARE Urine Creatinine Protein/Creatinin Ratio Urine Total Protein Urine Ascorbic Acid NEGATIVE Fluid Type Fluid Source Fluid Color Fluid Appearance Fluid Viscosity Fluid pH Fluid WBC Fluid RBC Fluid Seg Neutrophils Fluid Lymphocytes Fluid Monocytes Fluid Eosinophils Fluid Basophils Fluid Glucose Fluid Total Protein Fluid Albumin Fluid LDH Fluid Amylase COVID-19 Source COVID-19 (MELINA) Slides for Path Review Chest X-Ray 05/20/20 12:08 IMPRESSION: Interval development of moderate size right pleural effusion and possible small left pleural effusion. Patchy opacity over the right lung apex as well. Findings may be on the basis of congestive heart failure, though an infectious etiology could appear similar. Moderate cardiomegaly. Chest X-Ray 05/22/20 00:00 IMPRESSION: Satisfactory placement of the right IJ central venous catheter. Thoracentesis Ultrasound 05/22/20 00:00 IMPRESSION: SUCCESSFUL THORACENTESIS USING ULTRASOUND GUIDANCE. Chest X-Ray 05/22/20 14:20 IMPRESSION: NO PNEUMOTHORAX FOLLOWING THORACENTESIS. Chest X-Ray 05/22/20 16:20 IMPRESSION: 1. Status post thoracentesis, no pneumothorax. 2. No other significant interval changes since examination performed earlier on 05/22/2020. The patient is to EKG shows atrial sensed with ventricular paced rhythm. RECOMMENDATION/IMPRESSION: 1. Acute on chronic systolic heart failure.: Continue IV Lasix. Continue dobutamine and dopamine. Continue the patient's beta-bear and continue the patient's Entresto.. Continue topical nitrates for preload reduction. 2. Dilated cardiomyopathy and ischemic cardiomyopathy with severely reduced LV ejection fraction: The patient already on beta-bear and Entresto. Continue the same. 3. Coronary artery disease. History of a myocardial infarction in the past at present no anginal symptoms. The patient has a history of stent in unknown vessel. 4. History of hypertension: Blood pressure is better on Midrin 5. Chronic kidney disease stage III: Anticipate this would improve with the patient's heart failure treatment. 6. 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 7. History of sleep apnea. Continue CPAP at night. 8. History of AICD placement: Recent interrogation of the AICD shows that it is functioning normally. No firing of AICD. 9. History of vaginal bleed patient for possible hysterectomy in the immediate future. Medications reviewed. Medical regimen and management plan discussed with the attending provider on the case. Medical decision making is of high complexity. 60 minutes spent on this patient more than 50% time spent in direct patient care. Will follow
--- NOTE | 2020-05-25 20:53 | PDOC PROGRESS REPORT ---
Subjective Progress Note for:: 05/25/20 Subjective:: Patient seen by the bedside, she complain of pain in the ankle, Patient still requires dopamine and dobutamine to maintain normal blood pressure Reason For Visit: ACUTE ON CHRONIC COMBINED SYSTOLIC HEART FAILURE Physical Exam Vital Signs: Temp Pulse Resp BP Pulse Ox 98.1 F 81 22 H 135/83 H 98 05/25/20 19:24 05/25/20 20:30 05/25/20 17:45 05/25/20 20:30 05/25/20 19:45 Intake & Output 05/24/20 05/25/20 05/26/20 06:59 06:59 06:59 Intake Total 1605 3570 1293 Output Total 1095 1400 480 Balance 510 2170 813 Weight 96.3 kg 96.6 kg General appearance: PRESENT: mild distress Eye exam: PRESENT: PERRLA Respiratory exam: PRESENT: clear to auscultation abdi Cardiovascular exam: PRESENT: +S1, +S2 GI/Abdominal exam: PRESENT: ascites Extremities exam: PRESENT: tenderness Neurological exam: PRESENT: alert Results Laboratory Results: 05/24/20 06:00 05/22/20 15:15 05/22/20 05/22/20 05/25/20 14:10 14:10 11:30 Urine Color YELLOW Urine Appearance CLEAR Urine pH 5.0 Ur Specific [place] 1.013 Urine Protein NEGATIVE Urine Glucose (UA) NEGATIVE Urine Ketones NEGATIVE Urine Blood SMALL H Urine Nitrite NEGATIVE Ur Leukocyte Esterase NEGATIVE Urine WBC (Auto) 0 Urine RBC (Auto) 1 Fluid pH 7.6 Fluid Glucose 134 Fluid Total Protein 1.1 Fluid Albumin 0.6 Fluid LDH 77 Fluid Amylase 10 05/20/20 12:05 Blood Blood Culture - Final NO GROWTH IN 5 DAYS 05/20/20 11:47 Blood Blood Culture - Final NO GROWTH IN 5 DAYS 05/22/20 14:10 Pleural Fluid - Right Pleural Effusion Gram Stain - Final 05/20/20 05/20/20 05/20/20 11:47 11:47 11:47 Creatine Kinase 245 H CK-MB (CK-2) 5.41 H Troponin I 0.078 NT-Pro-B Natriuret Pep 54763 H 05/20/20 05/21/20 05/21/20 16:00 21:47 21:47 Creatine Kinase 244 H CK-MB (CK-2) 3.85 Troponin I 0.098 0.076 NT-Pro-B Natriuret Pep 05/22/20 05/22/20 05/22/20 05:44 05:44 15:00 Creatine Kinase 201 H CK-MB (CK-2) 3.26 4.51 Troponin I 0.063 0.060 NT-Pro-B Natriuret Pep 05/22/20 15:15 Creatine Kinase 315 H CK-MB (CK-2) Troponin I NT-Pro-B Natriuret Pep Impressions: Thoracentesis Ultrasound 05/22/20 00:00 IMPRESSION: SUCCESSFUL THORACENTESIS USING ULTRASOUND GUIDANCE. Chest X-Ray 05/22/20 16:20 IMPRESSION: 1. Status post thoracentesis, no pneumothorax. 2. No other significant interval changes since examination performed earlier on 05/22/2020. Assessment & Plan - Diagnosis (1) Acute combined systolic and diastolic congestive heart failure, NYHA class 1 Is this a current diagnosis for this admission?: Yes Plan: continue Dopamine and dobutamine (2) CKD (chronic kidney disease) stage 3, GFR 30-59 ml/min Is this a current diagnosis for this admission?: Yes (3) Chronic combined systolic (congestive) and diastolic (congestive) heart failure Is this a current diagnosis for this admission?: Yes (4) [facility] (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 of 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 Is this a current diagnosis for this admission?: Yes (5) Type 2 diabetes mellitus Qualifiers: Diabetes mellitus intermediate insulin use: without termination clerk use Diabetes mellitus complication status: with kidney complications Diabetes mellitus complication detail: with chronic kidney disease Chronic kidney disease stage: stage 3 (moderate) Qualified Code(s): E11.22 - Type 2 diabetes mellitus with diabetic chronic kidney disease; N18.3 - Chronic kidney disease, stage 3 (moderate) Is this a current diagnosis for this admission?: Yes (6) Hypotension Qualifiers: Hypotension type: unspecified hypotension type Qualified Code(s): I95.9 - Hypotension, unspecified Is this a current diagnosis for this admission?: Yes Plan: Continue dual pressors, dopamine and dobutamine - Time Time Spent with patient: 35 or more minutes Level of Care: IMCU Medications reviewed and adjusted accordingly: Yes Anticipated discharge: Home Anticipated DC Timeframe: Other - Inpatient Certification Based on my medical assessment, after consideration of the patient's comorbidities, presenting symptoms, or acuity I expect that the services needed warrant INPATIENT care.: Yes I certify that my determination is in accordance with my understanding of Medicare's requirements for reasonable and necessary INPATIENT services [42 CFR 412.3e].: Yes
[2020-05-25] MEDS: ZOLPIDEM TARTRATE 5 MG TABLET PO SCH (22:13)
[2020-05-25] MEDS: FUROSEMIDE INJ/PF 40 MG/4 ML SDV IV SCH (22:13)
[2020-05-25] MEDS: ATORVASTATIN CALCIUM 80 MG TABLET PO SCH (22:14)
[2020-05-25] MEDS: WARFARIN SODIUM 7.5 MG TABLET PO SCH (22:14)
[2020-05-25] MEDS: NITROGLYCERIN 2% OINTMENT 1 GM PACKET TP SCH (23:47)
[2020-05-26] MEDS: NITROGLYCERIN 2% OINTMENT 1 GM PACKET TP SCH ×5 (00:20→23:26)
--- NOTE | 2020-05-26 03:56 | Operative Report ---
Bedside Procedure - History of Present Illness History of Present Illness: BERONICA YEUNG is a 45 year old female, Patient is well-known to me very unfortunate young female with multiple comorbid conditions including chronic systolic and diastolic heart failure, nephrotic syndrome, diabetes mellitus complicated with neuropathy, nephropathy, retinopathy, status post AICD pacemaker implantation, on megadoses of diuretic she presented emergency room for evaluation of progress shortness of breath despite medication adherence. She was evaluated in the emergency room, a chest x-ray was done, the chest x-ray demonstrated, moderate right pleural effusion, patchy opacity over the right lung apex also was a small left pleural effusion there was no definite left sided pulmonary consolidation no masses there was cardiomegaly. The serum B type natruretic peptide was elevated consistent with CHF Indication for Procedure: Venous access Date: 05/22/20 Provider: CHIDI GARCÍA - Central Line Right Internal jugular Time completed: 23:56 Consent obtained: Yes Central line pre-insertion: Sterile PPE donned, Betadine prep applied Anesthetic type: 1% Lidocaine Ultrasound guided: Yes Line secured with sutures: Yes Central line post-insertion: Blood return from lumens, Biopatch applied, Sutured, Position confirmed w/ CXR Complications: No
[2020-05-26] MEDS: FUROSEMIDE INJ/PF 40 MG/4 ML SDV IV SCH ×3 (05:51→23:32)
[2020-05-26] MEDS: PANTOPRAZOLE SODIUM 40 MG TABLET.DR PO SCH (05:52)
[2020-05-26] MEDS: MIDODRINE HCL 5 MG TABLET PO SCH ×3 (05:52→18:00)
[2020-05-26] MEDS: DOPAMINE HCL 800 MG/D5W 250 ML IV PRN ×2 (06:04→23:26)
[2020-05-26 07:06] LABS: INTERNATIONAL RATION (INR) 1.63; PROTHROMBIN TIME 19.5 SEC (11.4-15.4)
--- NOTE | 2020-05-26 08:31 | RADIOLOGY REPORT (SQ) ---
EXAM DESCRIPTION: CHEST SINGLE VIEW IMAGES COMPLETED DATE/TIME: 05/26/2020 7:28 am REASON FOR STUDY: CHF COMPARISON: Chest films 05/20/2020, 05/22/2020 EXAM PARAMETERS: NUMBER OF VIEWS: One view. TECHNIQUE: Single frontal radiographic view of the chest acquired. RADIATION DOSE: NA LIMITATIONS: Portable film, lordotic positioning, obese patient FINDINGS: LUNGS AND PLEURA: Partial clearing of the airspace disease at the right lung base compared to 05/20/2020. Trace pleural fluid present bilaterally. No pneumothorax MEDIASTINUM AND HILAR STRUCTURES: No masses. Contour normal. HEART AND VASCULAR STRUCTURES: Stable marked cardiomegaly BONES: No acute findings. HARDWARE: Left-sided pacemaker/defibrillator. Right subclavian triple lumen catheter tip superior ve na cava OTHER: No other significant finding. IMPRESSION: Partial clearing of right basilar airspace disease compared 05/20/2020 Trace residual bilateral pleural effusions TECHNICAL DOCUMENTATION: JOB ID: [id number] 2010 [employer]- All Rights Reserved Reading location - IP/workstation name: [email or web address]
[2020-05-26] MEDS: DOBUTAMINE HCL/D5W 500 MG/250 ML RTUINJ IV PRN ×2 (08:39→17:57)
[2020-05-26] MEDS: FERROUS SULFATE 325 MG TABLET PO SCH (09:53)
[2020-05-26] MEDS: COLCHICINE 0.6 MG TABLET PO SCH (09:53)
[2020-05-26] MEDS: LUBIPROSTONE 24 MCG CAPSULE PO SCH ×2 (09:54→23:28)
[2020-05-26] MEDS: ALLOPURINOL 100 MG TABLET PO SCH (09:54)
[2020-05-26] MEDS: MEDROXYPROGESTERONE ACET 10 MG TABLET PO SCH (09:54)
[2020-05-26] MEDS: CARVEDILOL 12.5 MG TABLET PO SCH ×2 (09:55→23:28)
[2020-05-26] MEDS: CALCITRIOL 0.25 MCG CAPSULE PO SCH (09:55)
--- NOTE | 2020-05-26 12:41 | PDOC PROGRESS REPORT ---
Subjective Progress Note for:: 05/26/20 Subjective:: Patient seen by the bedside, she is alert she is oriented, she is diuresing, I had a long discussion with her, she has vaginal bleed, she is on Provera, she needs to have total hysterectomy but because of her severe cardiomyopathy and other comorbid conditions, the local RUMPER refused to proceed with the procedure, she was referred to [facility] but for the COVID this could not be done at this time. 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 Reason For Visit: ACUTE ON CHRONIC COMBINED SYSTOLIC HEART FAILURE Physical Exam Vital Signs: Temp Pulse Resp BP Pulse Ox 98.0 F 93 17 129/86 H 98 05/26/20 07:58 05/26/20 10:00 05/26/20 08:15 05/26/20 10:00 05/26/20 08:15 Intake & Output 05/25/20 05/26/20 05/27/20 06:59 06:59 06:59 Intake Total 3570 1627 250 Output Total 1400 3105 Balance 2170 -1478 250 Weight 96.6 kg 97.6 kg General appearance: PRESENT: no acute distress Eye exam: PRESENT: PERRLA Respiratory exam: PRESENT: clear to auscultation abdi Cardiovascular exam: PRESENT: +S1, +S2 GI/Abdominal exam: PRESENT: soft Neurological exam: PRESENT: alert, CN II-XII grossly intact Results Laboratory Results: 05/24/20 06:00 05/22/20 15:15 05/22/20 14:10 Pleural Fluid - Right Pleural Effusion Gram Stain - Final 05/22/20 14:10 Pleural Fluid - Right Pleural Effusion Body Fluid Culture - Final NO AEROBIC OR ANAEROBIC ORGANISMS RECOVERED 05/20/20 12:05 Blood Blood Culture - Final NO GROWTH IN 5 DAYS 05/20/20 11:47 Blood Blood Culture - Final NO GROWTH IN 5 DAYS 05/20/20 05/20/20 05/20/20 11:47 11:47 11:47 Creatine Kinase 245 H CK-MB (CK-2) 5.41 H Troponin I 0.078 NT-Pro-B Natriuret Pep 47341 H 05/20/20 05/21/20 05/21/20 16:00 21:47 21:47 Creatine Kinase 244 H CK-MB (CK-2) 3.85 Troponin I 0.098 0.076 NT-Pro-B Natriuret Pep 05/22/20 05/22/20 05/22/20 05:44 05:44 15:00 Creatine Kinase 201 H CK-MB (CK-2) 3.26 4.51 Troponin I 0.063 0.060 NT-Pro-B Natriuret Pep 05/22/20 15:15 Creatine Kinase 315 H CK-MB (CK-2) Troponin I NT-Pro-B Natriuret Pep Impressions: Thoracentesis Ultrasound 05/22/20 00:00 IMPRESSION: SUCCESSFUL THORACENTESIS USING ULTRASOUND GUIDANCE. Chest X-Ray 05/26/20 06:00 IMPRESSION: Partial clearing of right basilar airspace disease compared 05/20/2020 Trace residual bilateral pleural effusions Assessment & Plan - Diagnosis (1) Acute combined systolic and diastolic congestive heart failure, NYHA class 1 Is this a current diagnosis for this admission?: Yes Plan: continue Dopamine and dobutamine (2) CKD (chronic kidney disease) stage 3, GFR 30-59 ml/min Is this a current diagnosis for this admission?: Yes (3) Chronic combined systolic (congestive) and diastolic (congestive) heart failure Is this a current diagnosis for this admission?: Yes (4) [facility] (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 of 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 Is this a current diagnosis for this admission?: Yes (5) Type 2 diabetes mellitus Qualifiers: Diabetes mellitus intermediate accountant insulin use: without nursing home use Diabetes mellitus complication status: with kidney complications Diabetes mellitus complication detail: with chronic kidney disease Chronic kidney disease stage: stage 3 (moderate) Qualified Code(s): E11.22 - Type 2 diabetes mellitus with diabetic chronic kidney disease; N18.3 - Chronic kidney disease, stage 3 (moderate) Is this a current diagnosis for this admission?: Yes (6) Hypotension Qualifiers: Hypotension type: unspecified hypotension type Qualified Code(s): I95.9 - Hypotension, unspecified Is this a current diagnosis for this admission?: Yes Plan: Continue dual pressors, dopamine and dobutamine - Time Time Spent with patient: 35 or more minutes Level of Care: IMCU Smoking Cessation Education: over 10 minutes Medications reviewed and adjusted accordingly: Yes Anticipated discharge: Home Anticipated DC Timeframe: Other
--- NOTE | 2020-05-26 12:55 | Progress Note ---
Provider Note Provider Note: CARDIOLOGY PROGRESS NOTE by Dr. Maite Carter on 05/26/2020. SUBJECTIVE: The patient is breathing is better. She is less short of breath. She does have orthopnea but no PND. Her leg edema is better. She is diuresing. There is no chest pain discomfort. There is no cough or wheezing. Of note she has a history of vaginal bleed and is on Provera for that. She has been as per Dr. Workman recommended to have hysterectomy, but because of the cardiomyopathy she is supposed to have a 10 [facility]. This is been postponed due to the patient's current COVID environment. She has a past history of DVT and pulmonary embolism and is on Coumadin for that. She does have some asymptomatic nonsustained few beats of ventricular tachycardia. This is not causing any hemodynamic compromise. But will check the patient's potassium and magnesium. At present she is off the BiPAP and is on nasal cannula. PHYSICAL EXAMINATION: The patient is moderately obese. In no acute distress. She is well-groomed Selected Entries 05/26/20 05/26/20 08:15 13:00 Pulse Rate 76 Blood Pressure 110/74 O2 Sat by Pulse 98 Oximetry Oxygen Delivery Bi-pap Method ( includes room air) Fraction of 35 Inspired Oxygen Later patient on nasal cannula 6 L/min oxygen saturation is 97% (FIO2) GENERAL: She is alert and oriented x3 HEAD: Atraumatic, normocephalic. EYES: JACKY, sclera anicteric, conjunctiva are normal. ENT: Moist mucous membranes. No oral ulcerations or bleeding gums noted. No obvious ear, nose or throat abnormalities noted. NECK: supple without lymphadenopathy. Trachea is central. No cervical or axillary lymphadenopathy noted. Carotids are 2+, JVD is mildly elevated. LUNGS: There is better air entry in the bases. There is no rhonchi or wheezing. There is bibasilar rales of CHF. CHEST: Palpation of the chest wall shows no significant chest wall tenderness. 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 ABDOMEN: Soft, no significant tenderness appreciated, normoactive bowel sounds. No guarding, no rebound. No rigidity noted . No masses appreciated. EXTREMITIES: Femorals are diminished. There is no femoral bruits pedal pulses are 1+, no calf tenderness noted. No clubbing or cyanosis. Mild pedal edema noted NEUROLOGICAL: Focused neurological exam showed no significant neurologic deficit. Normal speech, no focal weakness appreciated. PSYCH: Normal mood, normal affect. Judgment and insight within normal limits. SKIN: No significant ecchymosis, skin is noted to be warm. MUSCULOSKELETAL EXAM: No significant acute joint swelling noted. The patient's 24-hour intake is 1627 mL. Output is 3105 mL. Chest X-Ray 05/20/20 12:08 IMPRESSION: Interval development of moderate size right pleural effusion and possible small left pleural effusion. Patchy opacity over the right lung apex as well. Findings may be on the basis of congestive heart failure, though an infectious etiology could appear similar. Moderate cardiomegaly. Chest X-Ray 05/22/20 00:00 IMPRESSION: Satisfactory placement of the right IJ central venous catheter. Thoracentesis Ultrasound 05/22/20 00:00 IMPRESSION: SUCCESSFUL THORACENTESIS USING ULTRASOUND GUIDANCE. Chest X-Ray 05/22/20 14:20 IMPRESSION: NO PNEUMOTHORAX FOLLOWING THORACENTESIS. Chest X-Ray 05/22/20 16:20 IMPRESSION: 1. Status post thoracentesis, no pneumothorax. 2. No other significant interval changes since examination performed earlier on 05/22/2020. Chest X-Ray 05/26/20 06:00 IMPRESSION: Partial clearing of right basilar airspace disease compared 05/20/2020 Trace residual bilateral pleural effusions Labs- All tests 24 hr 05/25/20 05/26/20 05/26/20 21:13 06:30 07:46 PT 19.5 H INR 1.63 POC Glucose 101 110 05/26/20 05/26/20 11:18 16:06 PT INR POC Glucose 172 H 154 H RECOMMENDATION/IMPRESSION: 1. Acute on chronic systolic heart failure.: Continue IV Lasix. Continue dobutamine and dopamine. Continue the patient's beta-bear and continue the patient's Entresto.. Continue topical nitrates for preload reduction. 2. Dilated cardiomyopathy and ischemic cardiomyopathy with severely reduced LV ejection fraction: The patient already on beta-bear and Entresto. Continue the same. 3. Coronary artery disease. History of a myocardial infarction in the past at present no anginal symptoms. The patient has a history of stent in unknown vessel. 4. History of hypertension: Blood pressure is better on Midrin 5. Chronic kidney disease stage III: Anticipate this would improve with the patient's heart failure treatment. 6. 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 7. History of sleep apnea. Continue CPAP at night. 8. History of AICD placement: Recent interrogation of the AICD shows that it is functioning normally. No firing of AICD. 9. History of vaginal bleed patient for possible hysterectomy in the immediate future. Medications reviewed. Medical regimen and management plan discussed with the attending provider on the case. Medical decision making is of high complexity. 40 minutes spent on this patient more than 50% time spent in direct patient care. Will follow
[2020-05-26 20:15] LABS: POTASSIUM 3.8 mmol/L (3.6-5.0)
[2020-05-26] MEDS: ATORVASTATIN CALCIUM 80 MG TABLET PO SCH (23:26)
[2020-05-26] MEDS: WARFARIN SODIUM 7.5 MG TABLET PO SCH (23:27)
[2020-05-26] MEDS: ZOLPIDEM TARTRATE 5 MG TABLET PO SCH (23:27)
[2020-05-27] MEDS: ONDANSETRON HCL INJ/PF 4 MG/2 ML SDV IV PRN (01:01)
[2020-05-27] MEDS: DIPHENHYDRAMINE HCL 50 MG/ML VIAL IV PRN ×2 (01:01→16:27)
[2020-05-27] MEDS: MORPHINE SULFATE 10 MG/ML INJ IV PRN ×3 (01:01→22:56)
[2020-05-27] MEDS: DOBUTAMINE HCL/D5W 500 MG/250 ML RTUINJ IV PRN ×2 (03:12→14:10)
[2020-05-27] MEDS: SACUBITRIL/VALSARTAN 97 MG/103 MG TABLET PO SCH ×3 (03:33→22:55)
[2020-05-27] MEDS: FUROSEMIDE INJ/PF 40 MG/4 ML SDV IV SCH ×3 (05:59→22:54)
[2020-05-27] MEDS: MIDODRINE HCL 5 MG TABLET PO SCH ×3 (06:07→18:12)
[2020-05-27] MEDS: NITROGLYCERIN 2% OINTMENT 1 GM PACKET TP SCH ×3 (06:08→18:10)
[2020-05-27] MEDS: PANTOPRAZOLE SODIUM 40 MG TABLET.DR PO SCH (06:08)
[2020-05-27 07:02] LABS: HEMATOCRIT 39.3 % (36.0-47.0); HEMOGLOBIN 12.9 g/dL (12.0-15.5); MEAN CORPUSCULAR HEMOGLOBIN 27.3 pg (27.0-33.4); MEAN CORPUSCULAR HGB CONC 32.7 g/dL (32.0-36.0); MEAN CORPUSCULAR VOLUME 83 fl (80-97); PLATELET COUNT 182 10^3/uL (150-450); RED BLOOD COUNT 4.71 10^6/uL (3.72-5.28); RED CELL DISTRIBUTION WIDTH 18.3 % (11.5-14.0); WHITE BLOOD COUNT 4.4 10^3/uL (4.0-10.5)
[2020-05-27 07:26] LABS: INTERNATIONAL RATION (INR) 1.78; PROTHROMBIN TIME 20.8 SEC (11.4-15.4)
[2020-05-27] MEDS ORDERED: ERGOCALCIFEROL (VITAMIN D2) 50000 UNIT (1.25 MG) CAPSULE PO SCH (10:00)
[2020-05-27] MEDS ORDERED: FLUCONAZOLE 100 MG TABLET PO SCH (10:00)
[2020-05-27] MEDS ORDERED: (PENDING PHARMACY ID) (Fluconazole [Diflucan] 150 MG) PO SCH (10:00)
--- NOTE | 2020-05-27 10:16 | Progress Note ---
Provider Note Provider Note: CARDIOLOGY PROGRESS NOTE by Dr. Maite Carter on 05/27/2020. SUBJECTIVE: The patient continues to slowly improve. She is less short of breath. She is now on nasal cannula 2 L/min. There is no anginal symptoms. She still has some degree of orthopnea. There is no PND. She has trace to mild pedal edema. She has good urine output. Await SMA-7 from today. She has no palpitations. There is no further nonsustained ventricular tachycardia on the monitor. There is no atrial ventricular arrhythmias seen. She has no anginal symptoms. There is still some vaginal bleed at present, but the hemoglobin is stable at 12.9. There is no symptoms suggestive of recurrence of PE or DVT. The central line is leaking and will be checked by the surgicalist. PHYSICAL EXAMINATION: The patient is moderately obese. At present no acute distress. Selected Entries 05/27/20 05/27/20 05/27/20 07:00 07:31 08:00 Temperature 97.9 F Pulse Rate 74 84 Respiratory 23 H Rate Blood Pressure 125/99 H Blood Pressure 107 Mean BP Location Right Arm BP Position Supine O2 Sat by Pulse Oximetry Oxygen Delivery Method ( includes room air) Oxygen Flow Rate Oxygen Delivery Bipap Method 05/27/20 10:35 Temperature Pulse Rate Respiratory Rate Blood Pressure Blood Pressure Mean BP Location BP Position O2 Sat by Pulse 94 Oximetry Oxygen Delivery Nasal Cannula Method ( includes room air) Oxygen Flow 2 Rate Oxygen Delivery Method GENERAL: She is alert and oriented x3 HEAD: Atraumatic, normocephalic. EYES: JACKY, sclera anicteric, conjunctiva are normal. ENT: Moist mucous membranes. No oral ulcerations or bleeding gums noted. No obvious ear, nose or throat abnormalities noted. NECK: supple without lymphadenopathy. Trachea is central. No cervical or axillary lymphadenopathy noted. Carotids are 2+, JVD is mildly elevated. LUNGS: There is better air entry in the bases. There is no rhonchi or wheezing. There is bibasilar rales of CHF. CHEST: Palpation of the chest wall shows no significant chest wall tenderness. 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 ABDOMEN: Soft, no significant tenderness appreciated, normoactive bowel sounds. No guarding, no rebound. No rigidity noted . No masses appreciated. EXTREMITIES: Femorals are diminished. There is no femoral bruits pedal pulses are 1+, no calf tenderness noted. No clubbing or cyanosis. Mild pedal edema noted NEUROLOGICAL: Focused neurological exam showed no significant neurologic deficit. Normal speech, no focal weakness appreciated. PSYCH: Normal mood, normal affect. Judgment and insight within normal limits. SKIN: No significant ecchymosis, skin is noted to be warm. MUSCULOSKELETAL EXAM: No significant acute joint swelling noted. The patient's 24-hour intake is 100 mL. Output is 4575 mL. Labs- All tests 24 hr 05/26/20 05/26/20 05/26/20 11:18 16:06 19:20 WBC RBC Hgb Hct MCV MCH MCHC RDW Plt Count PT INR Potassium 3.8 POC Glucose 172 H 154 H Magnesium 1.8 05/26/20 05/27/20 05/27/20 21:14 06:20 06:20 WBC 4.4 RBC 4.71 Hgb 12.9 Hct 39.3 MCV 83 MCH 27.3 MCHC 32.7 RDW 18.3 H Plt Count 182 PT 20.8 H INR 1.78 Potassium POC Glucose 87 Magnesium 05/27/20 05/27/20 07:29 11:04 WBC RBC Hgb Hct MCV MCH MCHC RDW Plt Count PT INR Potassium POC Glucose 114 H 156 H Magnesium Chest X-Ray 05/20/20 12:08 IMPRESSION: Interval development of moderate size right pleural effusion and possible small left pleural effusion. Patchy opacity over the right lung apex as well. Findings may be on the basis of congestive heart failure, though an infectious etiology could appear similar. Moderate cardiomegaly. Chest X-Ray 05/22/20 00:00 IMPRESSION: Satisfactory placement of the right IJ central venous catheter. Thoracentesis Ultrasound 05/22/20 00:00 IMPRESSION: SUCCESSFUL THORACENTESIS USING ULTRASOUND GUIDANCE. Chest X-Ray 05/22/20 14:20 IMPRESSION: NO PNEUMOTHORAX FOLLOWING THORACENTESIS. Chest X-Ray 05/22/20 16:20 IMPRESSION: 1. Status post thoracentesis, no pneumothorax. 2. No other significant interval changes since examination performed earlier on 05/22/2020. Chest X-Ray 05/26/20 06:00 IMPRESSION: Partial clearing of right basilar airspace disease compared 05/20/2020 Trace residual bilateral pleural effusions RECOMMENDATION/IMPRESSION: 1. Acute on chronic systolic heart failure.: Continue IV Lasix. Continue dobutamine and dopamine. The dobutamine and dopamine has been decreased.. Continue the patient's beta-bear and continue the patient's Entresto.. Continue topical nitrates for preload reduction. 2. Dilated cardiomyopathy and ischemic cardiomyopathy with severely reduced LV ejection fraction: The patient already on beta-bear and Entresto. Continue the same. 3. Coronary artery disease. History of a myocardial infarction in the past at present no anginal symptoms. The patient has a history of stent in unknown vessel. 4. History of hypertension: Blood pressure is better on Midrin 5. Chronic kidney disease stage III: Anticipate this would improve with the patient's heart failure treatment. 6. 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 7. History of sleep apnea. Continue CPAP at night. 8. History of AICD placement: Recent interrogation of the AICD shows that it is functioning normally. No firing of AICD. 9. History of vaginal bleed patient for possible hysterectomy in the immediate future. Still having vaginal bleed. Hemoglobin is stable. Medications reviewed. Medications adjusted medical regimen and management plan discussed with the attending provider on the case. Medical decision making is of high complexity. 40 minutes spent on this patient more than 50% time spent in direct patient care. Will follow
[2020-05-27] MEDS ORDERED: LORAZEPAM INJ 2 MG/1 ML VIAL IV PRN (10:40)
[2020-05-27] MEDS: CALCITRIOL 0.25 MCG CAPSULE PO SCH (11:04)
[2020-05-27] MEDS: LUBIPROSTONE 24 MCG CAPSULE PO SCH ×3 (11:04→23:03)
[2020-05-27] MEDS: FERROUS SULFATE 325 MG TABLET PO SCH (11:04)
[2020-05-27] MEDS: COLCHICINE 0.6 MG TABLET PO SCH (11:05)
[2020-05-27] MEDS: MEDROXYPROGESTERONE ACET 10 MG TABLET PO SCH (11:05)
[2020-05-27] MEDS: ALLOPURINOL 100 MG TABLET PO SCH (11:05)
[2020-05-27] MEDS: CARVEDILOL 12.5 MG TABLET PO SCH ×2 (11:08→22:55)
[2020-05-27 12:09] LABS: ANION GAP 5 (5-19); BLOOD UREA NITROGEN 42 mg/dL (7-20); CALCIUM 7.8 mg/dL (8.4-10.2); GLUCOSE 139 mg/dL (75-110); POTASSIUM 4.2 mmol/L (3.6-5.0)
[2020-05-27 12:14] LABS: CARBON DIOXIDE 25 mmol/L (22-30); CHLORIDE 104 mmol/L (98-107)
--- NOTE | 2020-05-27 13:19 | Operative Report ---
Operative Report DATE OF SURGERY: 05/27/20 PREOPERATIVE DIAGNOSIS: 1. Leaking right internal jugular vein central venous access catheter. 2. CHF. 3. Obesity POSTOPERATIVE DIAGNOSIS: Same OPERATION: 1. Focused ultrasound of the right neck. 2. Changing of existing c entral line to new central line over wire SURGEON: CRISTEL ALEXANDRA ANESTHESIA: Local TISSUE REMOVED OR ALTERED: None ESTIMATED BLOOD LOSS: Scant INTRAOPERATIVE FINDINGS: See below PROCEDURE: Dr. Alexandra was called earlier this morning for leaking central venous access catheter. The catheter was assessed at bedside this morning at 9:00 AM. Patient was found to have an indwelling triple-lumen central venous access catheter inserted 48 hours ago by the hospital service. Chest x-ray showed the tip of the catheter in the superior vena cava, however it was uncertain the location of the proximal lumen opening, potentially explaining why there was leakage of infusate around the catheter at the skin site. I felt the replacement of the catheter over a wire would be appropriate given the recent insertion of the catheter, and absence of infection at the insertion site Surgical plan and surgical timeout were conducted. Focused ultrasound of the right neck after removing existing dressing demonstrated patent internal jugular vein. The existing catheter exit site was now prepped and draped with alcohol and chlorhexidine. Skin at the insertion site was anesthetized 1% plain lidocaine. The catheter was amputated at the skin level, and a new 0.030 inch guidewire was threaded through the catheter remnant. The catheter remnant was removed, and a brand-new triple-lumen central venous access catheter started over the wire. The wire was removed. The catheter was advanced into the patient to approximately 24 cm tip to close to the hub. All 3 lm were aspirated and flushed with heparinized saline without difficulty. Catheter secured to the skin 2 sites with 2-0 silk suture, Biopatch and sterile dressing applied. Removed catheter was released from the patient skin after removing 2 sutures. The catheter was disposed of. Patient taught procedure well. Because this was a spinning frame changer wire, without additional venipuncture, and an uneventful exchange, no follow-up x-ray was obtained.
[2020-05-27] MEDS: DOPAMINE HCL/DEXTROSE 5%-WATER 800 MG/250 ML RTUINJ IV PRN (15:22)
--- NOTE | 2020-05-27 15:22 | PDOC PROGRESS REPORT ---
Subjective Progress Note for:: 05/27/20 Subjective:: Patient seen by the bedside presently hemodynamically stable Reason For Visit: ACUTE ON CHRONIC COMBINED SYSTOLIC HEART FAILURE Physical Exam Vital Signs: Temp Pulse Resp BP Pulse Ox 98.2 F 98 23 H 108/64 96 05/27/20 11:06 05/27/20 13:00 05/27/20 11:06 05/27/20 13:00 05/27/20 11:06 Intake & Output 05/26/20 05/27/20 05/28/20 06:59 06:59 06:59 Intake Total 1627 1000 500 Output Total 3105 9325 Balance -3423 -7348 500 Weight 97.6 kg 95.4 kg General appearance: PRESENT: no acute distress Eye exam: PRESENT: PERRLA Respiratory exam: PRESENT: clear to auscultation abdi Cardiovascular exam: PRESENT: +S1, +S2 Neurological exam: PRESENT: alert Results Laboratory Results: 05/27/20 06:20 05/27/20 11:25 05/26/20 05/27/20 05/27/20 19:20 06:20 11:25 WBC 4.4 RBC 4.71 Hgb 12.9 Hct 39.3 MCV 83 MCH 27.3 MCHC 32.7 RDW 18.3 H Plt Count 182 Sodium 134.3 L Potassium 3.8 4.2 Chloride 104 Carbon Dioxide 25 Anion Gap 5 BUN 42 H Creatinine 2.03 H Est GFR ( Amer) 32 L Glucose 139 H Calcium 7.8 L Magnesium 1.8 05/20/20 05/20/20 05/20/20 11:47 11:47 11:47 Creatine Kinase 245 H CK-MB (CK-2) 5.41 H Troponin I 0.078 NT-Pro-B Natriuret Pep 03815 H 05/20/20 05/21/20 05/21/20 16:00 21:47 21:47 Creatine Kinase 244 H CK-MB (CK-2) 3.85 Troponin I 0.098 0.076 NT-Pro-B Natriuret Pep 05/22/20 05/22/20 05/22/20 05:44 05:44 15:00 Creatine Kinase 201 H CK-MB (CK-2) 3.26 4.51 Troponin I 0.063 0.060 NT-Pro-B Natriuret Pep 05/22/20 15:15 Creatine Kinase 315 H CK-MB (CK-2) Troponin I NT-Pro-B Natriuret Pep Impressions: Thoracentesis Ultrasound 05/22/20 00:00 IMPRESSION: SUCCESSFUL THORACENTESIS USING ULTRASOUND GUIDANCE. Chest X-Ray 05/26/20 06:00 IMPRESSION: Partial clearing of right basilar airspace disease compared 05/20/2020 Trace residual bilateral pleural effusions Assessment & Plan - Diagnosis (1) Acute combined systolic and diastolic congestive heart failure, NYHA class 1 Is this a current diagnosis for this admission?: Yes Plan: continue Dopamine and dobutamine (2) CKD (chronic kidney disease) stage 3, GFR 30-59 ml/min Is this a current diagnosis for this admission?: Yes (3) Chronic combined systolic (congestive) and diastolic (congestive) heart failure Is this a current diagnosis for this admission?: Yes (4) 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 Is this a current diagnosis for this admission?: Yes (5) Type 2 diabetes mellitus Qualifiers: Diabetes mellitus longterm insulin use: without [place] terminal supervisor use Diabetes mellitus complication status: with kidney complications Diabetes mellitus complication detail: with chronic kidney disease Chronic kidney disease stage: stage 3 (moderate) Qualified Code(s): E11.22 - Type 2 diabetes mellitus with diabetic chronic kidney disease; N18.3 - Chronic kidney disease, stage 3 (moderate) Is this a current diagnosis for this admission?: Yes (6) Hypotension Qualifiers: Hypotension type: unspecified hypotension type Qualified Code(s): I95.9 - Hypotension, unspecified Is this a current diagnosis for this admission?: Yes Plan: Continue dual pressors, dopamine and dobutamine - Time Time Spent with patient: 25-34 minutes Level of Care: IMCU Anticipated discharge: Home Anticipated DC Timeframe: within 72 hours
[2020-05-27] MEDS: WARFARIN SODIUM 7.5 MG TABLET PO SCH (22:56)
[2020-05-27] MEDS: ATORVASTATIN CALCIUM 80 MG TABLET PO SCH (22:56)
[2020-05-27] MEDS: ZOLPIDEM TARTRATE 5 MG TABLET PO SCH (22:56)
[2020-05-28] MEDS: NITROGLYCERIN 2% OINTMENT 1 GM PACKET TP SCH ×4 (00:14→22:22)
[2020-05-28] MEDS: FUROSEMIDE INJ/PF 40 MG/4 ML SDV IV SCH ×3 (06:19→22:23)
[2020-05-28] MEDS: MIDODRINE HCL 5 MG TABLET PO SCH ×3 (06:19→17:14)
[2020-05-28] MEDS: PANTOPRAZOLE SODIUM 40 MG TABLET.DR PO SCH (06:19)
[2020-05-28 07:20] LABS: APPEARANCE,URINE CLEAR; BILIRUBIN,URINE NEGATIVE (NEGATIVE); COLOR,URINE STRAW; GLUCOSE, URINE NEGATIVE (NEGATIVE); KETONES,URINE NEGATIVE (NEGATIVE); LEUKOCYTE ESTERASE,URINE NEGATIVE (NEGATIVE); NITRITE,URINE NEGATIVE (NEGATIVE); PROTEIN,URINE NEGATIVE (NEGATIVE); URINE SPECIFIC GRAVITY 1.006; UROBILINOGEN,URINE NEGATIVE mg/dL (<2.0)
[2020-05-28 07:22] LABS: INTERNATIONAL RATION (INR) 2.06; PROTHROMBIN TIME 23.3 SEC (11.4-15.4)
[2020-05-28] MEDS: DOPAMINE HCL/DEXTROSE 5%-WATER 800 MG/250 ML RTUINJ IV PRN (08:21)
[2020-05-28] MEDS: COLCHICINE 0.6 MG TABLET PO SCH (10:43)
[2020-05-28] MEDS: FERROUS SULFATE 325 MG TABLET PO SCH (10:43)
[2020-05-28] MEDS: CARVEDILOL 12.5 MG TABLET PO SCH ×2 (10:43→22:23)
[2020-05-28] MEDS: ALLOPURINOL 100 MG TABLET PO SCH (10:43)
[2020-05-28] MEDS: LUBIPROSTONE 24 MCG CAPSULE PO SCH ×2 (10:43→22:25)
[2020-05-28] MEDS: CALCITRIOL 0.25 MCG CAPSULE PO SCH (10:43)
[2020-05-28] MEDS: MEDROXYPROGESTERONE ACET 10 MG TABLET PO SCH (10:43)
[2020-05-28] MEDS: BUMETANIDE 1 MG TABLET PO SCH (10:44)
[2020-05-28] MEDS: SACUBITRIL/VALSARTAN 97 MG/103 MG TABLET PO SCH ×2 (10:44→22:22)
[2020-05-28] MEDS: DOBUTAMINE HCL/D5W 500 MG/250 ML RTUINJ IV PRN (13:01)
--- NOTE | 2020-05-28 16:10 | Progress Note ---
Provider Note Provider Note: Cardiology PROGRESS NOTE by Dr. Maite Carter on 05/28/2020. SUBJECTIVE: The patient's shortness of breath is improved. She still has some shortness of breath at rest and also some orthopnea. She has only trace leg edema. She denies any chest pain discomfort. She has no PND. There is no ventricle arrhythmia seen. There is no firing of her AICD. Vaginal bleeding is much less. Her hemoglobin remained stable. Renal function slightly improved yesterday. PHYSICAL EXAMINATION: The patient is moderately obese. In no acute distress. Selected Entries 05/28/20 05/28/20 05/28/20 09:03 11:32 13:00 Pulse Rate 79 Respiratory 20 Rate Blood Pressure Blood Pressure Mean O2 Sat by Pulse 99 Oximetry Oxygen Delivery Nasal Cannula Method ( includes room air) Oxygen Flow 4 4.00 Rate Oxygen Delivery Nasal Cannula Method 05/28/20 05/28/20 14:00 14:34 Pulse Rate Respiratory Rate Blood Pressure 111/68 111/68 Blood Pressure 82 Mean O2 Sat by Pulse Oximetry Oxygen Delivery Method ( includes room air) Oxygen Flow Rate Oxygen Delivery Method GENERAL: She is alert and oriented x3 HEAD: Atraumatic, normocephalic. EYES: JACKY, sclera anicteric, conjunctiva are normal. ENT: Moist mucous membranes. No oral ulcerations or bleeding gums noted. No obvious ear, nose or throat abnormalities noted. NECK: supple without lymphadenopathy. Trachea is central. No cervical or axillary lymphadenopathy noted. Carotids are 2+, JVD is mildly elevated. LUNGS: There is better air entry in the bases. There is no rhonchi or wheezing. There is bibasilar rales of CHF. CHEST: Palpation of the chest wall shows no significant chest wall tenderness. 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 ABDOMEN: Soft, no significant tenderness appreciated, normoactive bowel sounds. No guarding, no rebound. No rigidity noted . No masses appreciated. EXTREMITIES: Femorals are diminished. There is no femoral bruits pedal pulses are 1+, no calf tenderness noted. No clubbing or cyanosis. Mild pedal edema noted NEUROLOGICAL: Focused neurological exam showed no significant neurologic deficit. Normal speech, no focal weakness appreciated. PSYCH: Normal mood, normal affect. Judgment and insight within normal limits. SKIN: No significant ecchymosis, skin is noted to be warm. MUSCULOSKELETAL EXAM: No significant acute joint swelling noted. The patient's 24-hour intake is 1424 mL. Output is 5025 mL. Labs- All tests 24 hr 05/28/20 05/28/20 05/28/20 06:30 06:40 07:17 PT 23.3 H INR 2.06 POC Glucose 112 H Urine Color STRAW Urine Appearance CLEAR Urine pH 7.0 Ur Specific [place] 1.006 Urine Protein NEGATIVE Urine Glucose (UA) NEGATIVE Urine Ketones NEGATIVE Urine Blood SMALL H Urine Nitrite NEGATIVE Urine Bilirubin NEGATIVE Urine Urobilinogen NEGATIVE Ur Leukocyte Esterase NEGATIVE Urine WBC (Auto) 0 Urine RBC (Auto) 1 Urine Bacteria (Auto) TRACE Urine Ascorbic Acid NEGATIVE 05/28/20 05/28/20 11:34 16:07 PT INR POC Glucose 160 H 140 H Urine Color Urine Appearance Urine pH Ur Specific [place] Urine Protein Urine Glucose (UA) Urine Ketones Urine Blood Urine Nitrite Urine Bilirubin Urine Urobilinogen Ur Leukocyte Esterase Urine WBC (Auto) Urine RBC (Auto) Urine Bacteria (Auto) Urine Ascorbic Acid Chest X-Ray 05/20/20 12:08 IMPRESSION: Interval development of moderate size right pleural effusion and possible small left pleural effusion. Patchy opacity over the right lung apex as well. Findings may be on the basis of congestive heart failure, though an infectious etiology could appear similar. Moderate cardiomegaly. Chest X-Ray 05/22/20 00:00 IMPRESSION: Satisfactory placement of the right IJ central venous catheter. Thoracentesis Ultrasound 05/22/20 00:00 IMPRESSION: SUCCESSFUL THORACENTESIS USING ULTRASOUND GUIDANCE. Chest X-Ray 05/22/20 14:20 IMPRESSION: NO PNEUMOTHORAX FOLLOWING THORACENTESIS. Chest X-Ray 05/22/20 16:20 IMPRESSION: 1. Status post thoracentesis, no pneumothorax. 2. No other significant interval changes since examination performed earlier on 05/22/2020. Chest X-Ray 05/26/20 06:00 IMPRESSION: Partial clearing of right basilar airspace disease compared 05/20/2020 Trace residual bilateral pleural effusions RECOMMENDATION/IMPRESSION: 1. Acute on chronic systolic heart failure.: Continue IV Lasix. Continue dobutamine and dopamine. The dobutamine and dopamine has been decreased.. [Dobutamine is 2.5 mcg/kg/min and dopamine is being decreased to 5 mcg/kg/min]. The patient's IV Lasix is been discussed increased to 40 mg IV every 12 hours. We will stop the patient's p.o. Bumex for now. Continue the patient's beta- bear and continue the patient's Entresto.. Continue topical nitrates for preload reduction, but will decrease the dose to every 8 hours.. 2. Dilated cardiomyopathy and ischemic cardiomyopathy with severely reduced LV ejection fraction: The patient already on beta-bear and Entresto. Continue the same. 3. Coronary artery disease. History of a myocardial infarction in the past at present no anginal symptoms. The patient has a history of stent in unknown vessel. 4. History of hypertension: Blood pressure is better on [place] 5. Chronic kidney disease stage III: Anticipate this would improve with the patient's heart failure treatment. 6. 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 7. History of sleep apnea. Continue CPAP at night. 8. History of AICD placement: Recent interrogation of the AICD shows that it is functioning normally. No firing of AICD. 9. History of vaginal bleed patient for possible hysterectomy in the immediate future. Still having vaginal bleed. Hemoglobin is stable. Medications reviewed. Medications adjusted medical regimen and management plan discussed with the attending provider on the case. Medical decision making is of high complexity. 40 minutes spent on this patient more than 50% time spent in direct patient care. Will follow
[2020-05-28] MEDS: MORPHINE SULFATE 10 MG/ML INJ IV PRN (18:41)
[2020-05-28] MEDS: DIPHENHYDRAMINE HCL 50 MG/ML VIAL IV PRN (18:42)
--- NOTE | 2020-05-28 19:55 | PDOC PROGRESS REPORT ---
Subjective Progress Note for:: 05/28/20 Subjective:: Patient seen by the bedside, she still requiring dopamine, dobutamine Reason For Visit: ACUTE ON CHRONIC COMBINED SYSTOLIC HEART FAILURE Physical Exam Vital Signs: Temp Pulse Resp BP Pulse Ox 98.2 F 111 H 20 95/74 L 97 05/28/20 15:18 05/28/20 18:00 05/28/20 15:18 05/28/20 18:00 05/28/20 15:18 Intake & Output 05/27/20 05/28/20 05/29/20 06:59 06:59 06:59 Intake Total 1000 1424 813 Output Total 4575 5025 1775 Balance -1639 -3962 -672 Weight 95.4 kg 94.1 kg General appearance: PRESENT: no acute distress Eye exam: PRESENT: PERRLA Respiratory exam: PRESENT: clear to auscultation abdi Cardiovascular exam: PRESENT: +S1, +S2 GI/Abdominal exam: PRESENT: soft Neurological exam: PRESENT: alert Results Laboratory Results: 05/27/20 06:20 05/27/20 11:25 05/28/20 06:30 Urine Color STRAW Urine Appearance CLEAR Urine pH 7.0 Ur Specific [place] 1.006 Urine Protein NEGATIVE Urine Glucose (UA) NEGATIVE Urine Ketones NEGATIVE Urine Blood SMALL H Urine Nitrite NEGATIVE Ur Leukocyte Esterase NEGATIVE Urine WBC (Auto) 0 Urine RBC (Auto) 1 05/22/20 14:10 Pleural Fluid - Right Pleural Effusion Fungal Smear - Final 05/22/20 14:10 Pleural Fluid - Right Pleural Effusion Fungal Smear - Final 05/20/20 05/20/20 05/20/20 11:47 11:47 11:47 Creatine Kinase 245 H CK-MB (CK-2) 5.41 H Troponin I 0.078 NT-Pro-B Natriuret Pep 75296 H 05/20/20 05/21/20 05/21/20 16:00 21:47 21:47 Creatine Kinase 244 H CK-MB (CK-2) 3.85 Troponin I 0.098 0.076 NT-Pro-B Natriuret Pep 05/22/20 05/22/20 05/22/20 05:44 05:44 15:00 Creatine Kinase 201 H CK-MB (CK-2) 3.26 4.51 Troponin I 0.063 0.060 NT-Pro-B Natriuret Pep 05/22/20 15:15 Creatine Kinase 315 H CK-MB (CK-2) Troponin I NT-Pro-B Natriuret Pep Impressions: Thoracentesis Ultrasound 05/22/20 00:00 IMPRESSION: SUCCESSFUL THORACENTESIS USING ULTRASOUND GUIDANCE. Chest X-Ray 05/26/20 06:00 IMPRESSION: Partial clearing of right basilar airspace disease compared 05/20/2020 Trace residual bilateral pleural effusions Assessment & Plan - Diagnosis (1) Acute combined systolic and diastolic congestive heart failure, NYHA class 1 Is this a current diagnosis for this admission?: Yes Plan: continue Dopamine and dobutamine (2) CKD (chronic kidney disease) stage 3, GFR 30-59 ml/min Is this a current diagnosis for this admission?: Yes (3) Chronic combined systolic (congestive) and diastolic (congestive) heart failure Is this a current diagnosis for this admission?: Yes (4) nursing home (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 of 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 Is this a current diagnosis for this admission?: Yes (5) Type 2 diabetes mellitus Qualifiers: Diabetes mellitus fdc insulin use: without fdc use Diabetes mellitus complication status: with kidney complications Diabetes mellitus complication detail: with chronic kidney disease Chronic kidney disease stage: stage 3 (moderate) Qualified Code(s): E11.22 - Type 2 diabetes mellitus with diabetic chronic kidney disease; N18.3 - Chronic kidney disease, stage 3 (moderate) Is this a current diagnosis for this admission?: Yes (6) Hypotension Qualifiers: Hypotension type: unspecified hypotension type Qualified Code(s): I95.9 - Hypotension, unspecified Is this a current diagnosis for this admission?: Yes Plan: Continue dual pressors, dopamine and dobutamine,improved - Time Time Spent with patient: 25-34 minutes Anticipated discharge: Home Anticipated DC Timeframe: within 72 hours
[2020-05-28] MEDS: ATORVASTATIN CALCIUM 80 MG TABLET PO SCH (22:22)
[2020-05-28] MEDS: WARFARIN SODIUM 7.5 MG TABLET PO SCH (22:23)
[2020-05-28] MEDS: ONDANSETRON HCL INJ/PF 4 MG/2 ML SDV IV PRN (22:24)
[2020-05-29] MEDS ORDERED: TRAMADOL HCL 50 MG TABLET PO PRN (00:08)
[2020-05-29] MEDS ORDERED: ZOLPIDEM TARTRATE 5 MG TABLET ONE (00:25)
[2020-05-29] MEDS: MORPHINE SULFATE 10 MG/ML INJ IV PRN ×3 (00:27→22:30)
[2020-05-29] MEDS: DIPHENHYDRAMINE HCL 25 MG CAPSULE PO PRN (00:43)
[2020-05-29] MEDS: MIDODRINE HCL 5 MG TABLET PO SCH ×3 (07:49→17:35)
[2020-05-29] MEDS: PANTOPRAZOLE SODIUM 40 MG TABLET.DR PO SCH (07:56)
[2020-05-29] MEDS: DOPAMINE HCL/DEXTROSE 5%-WATER 800 MG/250 ML RTUINJ IV PRN (07:59)
[2020-05-29] MEDS: NITROGLYCERIN 2% OINTMENT 1 GM PACKET TP SCH ×3 (08:03→22:29)
[2020-05-29] MEDS: COLCHICINE 0.6 MG TABLET PO SCH (09:21)
[2020-05-29] MEDS: CALCITRIOL 0.25 MCG CAPSULE PO SCH (09:21)
[2020-05-29] MEDS: FERROUS SULFATE 325 MG TABLET PO SCH (09:21)
[2020-05-29] MEDS: LUBIPROSTONE 24 MCG CAPSULE PO SCH ×2 (09:21→21:23)
[2020-05-29] MEDS: CARVEDILOL 12.5 MG TABLET PO SCH ×2 (09:21→22:29)
[2020-05-29] MEDS: ALLOPURINOL 100 MG TABLET PO SCH (09:21)
[2020-05-29] MEDS: FUROSEMIDE INJ/PF 40 MG/4 ML SDV IV SCH ×2 (09:22→22:28)
[2020-05-29] MEDS: MEDROXYPROGESTERONE ACET 10 MG TABLET PO SCH (09:22)
[2020-05-29] MEDS: SACUBITRIL/VALSARTAN 97 MG/103 MG TABLET PO SCH ×2 (09:22→22:29)
[2020-05-29 09:48] LABS: INTERNATIONAL RATION (INR) 2.68; PROTHROMBIN TIME 28.4 SEC (11.4-15.4)
[2020-05-29] MEDS: DIPHENHYDRAMINE HCL 50 MG/ML VIAL IV PRN ×2 (17:34→22:30)
--- NOTE | 2020-05-29 18:33 | Progress Note ---
Provider Note Provider Note: CARDIOLOGY PROGRESS NOTE by Dr. Maite Carter on 05/29/2020. Subjective: The patient feels much better. There is no shortness of breath at rest. She still has not ambulated. She still has some degree of orthopnea. There is no PND and her leg edema is only trace there is no arrhythmias seen on the monitor. There is no anginal symptoms. There is no firing of her AICD. There is no symptoms of recurrence of PE or DVT. PHYSICAL EXAMINATION: The patient is moderately obese. At present in no acute distress. Selected Entries 05/29/20 05/29/20 05/29/20 15:00 18:02 19:59 Pulse Rate 79 Respiratory 16 Rate Blood Pressure 101/65 Blood Pressure 77 Mean O2 Sat by Pulse 100 Oximetry Fraction of 35 Inspired Oxygen (FIO2) Oxygen Flow 4 4.00 Rate Oxygen Delivery Nasal Cannula Method GENERAL: She is alert and oriented x3 HEAD: Atraumatic, normocephalic. EYES: JACKY, sclera anicteric, conjunctiva are normal. ENT: Moist mucous membranes. No oral ulcerations or bleeding gums noted. No obvious ear, nose or throat abnormalities noted. NECK: supple without lymphadenopathy. Trachea is central. No cervical or axillary lymphadenopathy noted. Carotids are 2+, JVD is mildly elevated. LUNGS: There is better air entry in the bases. There is no rhonchi or wheezing. There is bibasilar rales of CHF. CHEST: Palpation of the chest wall shows no significant chest wall tenderness. 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 ABDOMEN: Soft, no significant tenderness appreciated, normoactive bowel sounds. No guarding, no rebound. No rigidity noted . No masses appreciated. EXTREMITIES: Femorals are diminished. There is no femoral bruits pedal pulses are 1+, no calf tenderness noted. No clubbing or cyanosis. Mild pedal edema noted NEUROLOGICAL: Focused neurological exam showed no significant neurologic deficit. Normal speech, no focal weakness appreciated. PSYCH: Normal mood, normal affect. Judgment and insight within normal limits. SKIN: No significant ecchymosis, skin is noted to be warm. MUSCULOSKELETAL EXAM: No significant acute joint swelling noted. The patient's 24-hour intake is 813 mL. Output is 3975 mL. Labs- All tests 24 hr 05/29/20 05/29/20 05/29/20 07:44 09:16 12:11 PT 28.4 H INR 2.68 POC Glucose 87 141 H 05/29/20 05/29/20 17:00 21:14 PT INR POC Glucose 116 H 145 H Chest X-Ray 05/20/20 12:08 IMPRESSION: Interval development of moderate size right pleural effusion and possible small left pleural effusion. Patchy opacity over the right lung apex as well. Findings may be on the basis of congestive heart failure, though an infectious etiology could appear similar. Moderate cardiomegaly. Chest X-Ray 05/22/20 00:00 IMPRESSION: Satisfactory placement of the right IJ central venous catheter. Thoracentesis Ultrasound 05/22/20 00:00 IMPRESSION: SUCCESSFUL THORACENTESIS USING ULTRASOUND GUIDANCE. Chest X-Ray 05/22/20 14:20 IMPRESSION: NO PNEUMOTHORAX FOLLOWING THORACENTESIS. Chest X-Ray 05/22/20 16:20 IMPRESSION: 1. Status post thoracentesis, no pneumothorax. 2. No other significant interval changes since examination performed earlier on 05/22/2020. Chest X-Ray 05/26/20 06:00 IMPRESSION: Partial clearing of right basilar airspace disease compared 05/20/2020 Trace residual bilateral pleural effusions RECOMMENDATION/IMPRESSION: 1. Acute on chronic systolic heart failure.: Continue IV Lasix. We will stop the dobutamine and decrease the dopamine to 2.5 mcg/kg/min. Supplement subsequently will stop dopamine. The dobutamine and dopamine has been decrea sed.. [Dobutamine is 2.5 mcg/kg/min and dopamine is being decreased to 5 mcg/kg/min]. The patient's IV Lasix is been discussed increased to 40 mg IV every 12 hours. We will stop the patient's p.o. Bumex for now. Continue the patient's beta-bear and continue the patient's Entresto.. Continue topical nitrates for preload reduction, but will decrease the dose to every 8 hours.. 2. Dilated cardiomyopathy and ischemic cardiomyopathy with severely reduced LV ejection fraction: The patient already on beta-bear and Entresto. Continue the same. 3. Coronary artery disease. History of a myocardial infarction in the past at present no anginal symptoms. The patient has a history of stent in unknown vessel. 4. History of hypertension: Blood pressure is better on [place] 5. Chronic kidney disease stage III: Anticipate this would improve with the patient's heart failure treatment. Will check labs in the a.m. 6. 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 7. History of sleep apnea. Continue CPAP at night. 8. History of AICD placement: Recent interrogation of the AICD shows that it is functioning normally. No firing of AICD. 9. History of vaginal bleed patient for possible hysterectomy in the immediate future. Still having vaginal bleed. Hemoglobin is stable. Medications reviewed. Medications adjusted medical regimen and management plan discussed with the attending provider on the case. Medical decision making is of high complexity. 40 minutes spent on this patient more than 50% time spent in direct patient care. Will follow
--- NOTE | 2020-05-29 20:22 | PDOC PROGRESS REPORT ---
Subjective Progress Note for:: 05/29/20 Subjective:: Patient seen by the bedside she complains of pain, she still requiring dobutamine and dopamine Reason For Visit: ACUTE ON CHRONIC COMBINED SYSTOLIC HEART FAILURE Physical Exam Vital Signs: Temp Pulse Resp BP Pulse Ox 98.0 F 88 15 117/89 H 96 05/29/20 16:57 05/29/20 18:00 05/29/20 04:11 05/29/20 18:00 05/29/20 09:37 Intake & Output 05/28/20 05/29/20 05/30/20 06:59 06:59 06:59 Intake Total 1424 813 896 Output Total 5025 3975 900 Balance -3601 -3162 -4 Weight 94.1 kg 99.5 kg 99.5 kg General appearance: PRESENT: no acute distress Eye exam: PRESENT: PERRLA Respiratory exam: PRESENT: clear to auscultation abdi Cardiovascular exam: PRESENT: +S1, +S2 GI/Abdominal exam: PRESENT: soft Results Laboratory Results: 05/27/20 06:20 05/27/20 11:25 05/20/20 05/20/20 05/20/20 11:47 11:47 11:47 Creatine Kinase 245 H CK-MB (CK-2) 5.41 H Troponin I 0.078 NT-Pro-B Natriuret Pep 69625 H 05/20/20 05/21/20 05/21/20 16:00 21:47 21:47 Creatine Kinase 244 H CK-MB (CK-2) 3.85 Troponin I 0.098 0.076 NT-Pro-B Natriuret Pep 05/22/20 05/22/20 05/22/20 05:44 05:44 15:00 Creatine Kinase 201 H CK-MB (CK-2) 3.26 4.51 Troponin I 0.063 0.060 NT-Pro-B Natriuret Pep 05/22/20 15:15 Creatine Kinase 315 H CK-MB (CK-2) Troponin I NT-Pro-B Natriuret Pep Impressions: Thoracentesis Ultrasound 05/22/20 00:00 IMPRESSION: SUCCESSFUL THORACENTESIS USING ULTRASOUND GUIDANCE. Chest X-Ray 05/26/20 06:00 IMPRESSION: Partial clearing of right basilar airspace disease compared 05/20/2020 Trace residual bilateral pleural effusions Assessment & Plan - Diagnosis (1) Acute combined systolic and diastolic congestive heart failure, NYHA class 1 Is this a current diagnosis for this admission?: Yes Plan: Patient to continue dobutamine and dopamine (2) CKD (chronic kidney disease) stage 3, GFR 30-59 ml/min Is this a current diagnosis for this admission?: Yes (3) Chronic combined systolic (congestive) and diastolic (congestive) heart failure Is this a current diagnosis for this admission?: Yes (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 Is this a current diagnosis for this admission?: Yes (5) Type 2 diabetes mellitus Qualifiers: Diabetes mellitus custodial insulin use: without custodial use Diabetes mellitus complication status: with kidney complications Diabetes mellitus complication detail: with chronic kidney disease Chronic kidney disease stage: stage 3 (moderate) Qualified Code(s): E11.22 - Type 2 diabetes mellitus with diabetic chronic kidney disease; N18.3 - Chronic kidney disease, stage 3 (moderate) Is this a current diagnosis for this admission?: Yes (6) Hypotension Qualifiers: Hypotension type: unspecified hypotension type Qualified Code(s): I95.9 - Hypotension, unspecified Is this a current diagnosis for this admission?: Yes - Time Time Spent with patient: 25-34 minutes Level of Care: IMCU Anticipated discharge: Home Anticipated DC Timeframe: within 72 hours
[2020-05-29] MEDS: ATORVASTATIN CALCIUM 80 MG TABLET PO SCH (22:28)
[2020-05-29] MEDS: WARFARIN SODIUM 7.5 MG TABLET PO SCH (22:29)
[2020-05-29] MEDS: ZOLPIDEM TARTRATE 5 MG TABLET PO SCH (22:29)
[2020-05-30] MEDS: NITROGLYCERIN 2% OINTMENT 1 GM PACKET TP SCH (05:46)
[2020-05-30] MEDS: MIDODRINE HCL 5 MG TABLET PO SCH ×2 (05:46→17:13)
[2020-05-30] MEDS: PANTOPRAZOLE SODIUM 40 MG TABLET.DR PO SCH (05:46)
[2020-05-30 06:14] LABS: HEMATOCRIT 35.8 % (36.0-47.0); HEMOGLOBIN 11.7 g/dL (12.0-15.5); MEAN CORPUSCULAR HEMOGLOBIN 27.4 pg (27.0-33.4); MEAN CORPUSCULAR HGB CONC 32.6 g/dL (32.0-36.0); MEAN CORPUSCULAR VOLUME 84 fl (80-97); PLATELET COUNT 189 10^3/uL (150-450); RED BLOOD COUNT 4.26 10^6/uL (3.72-5.28); RED CELL DISTRIBUTION WIDTH 18.9 % (11.5-14.0); WHITE BLOOD COUNT 3.8 10^3/uL (4.0-10.5)
[2020-05-30 06:19] LABS: INTERNATIONAL RATION (INR) 2.84; PROTHROMBIN TIME 29.7 SEC (11.4-15.4)
[2020-05-30 06:43] LABS: ALBUMIN 2.2 g/dL (3.5-5.0); ALKALINE PHOSPHATASE 138 U/L (38-126); ANION GAP 5 (5-19); ASPARTATE AMINO TRANSFERASE 22 U/L (14-36); BILIRUBIN,DIRECT 0.4 mg/dL (0.0-0.4); BILIRUBIN,TOTAL 0.5 mg/dL (0.2-1.3); BLOOD UREA NITROGEN 41 mg/dL (7-20); CALCIUM 7.7 mg/dL (8.4-10.2); CARBON DIOXIDE 28 mmol/L (22-30); CHLORIDE 107 mmol/L (98-107); GLUCOSE 82 mg/dL (75-110); POTASSIUM 3.8 mmol/L (3.6-5.0); TOTAL PROTEIN 4.6 g/dL (6.3-8.2)
[2020-05-30] MEDS ORDERED: MIDODRINE HCL 5 MG TABLET PO ONE ×2 (10:00→12:00)
[2020-05-30] MEDS: ALLOPURINOL 100 MG TABLET PO SCH (10:10)
[2020-05-30] MEDS: COLCHICINE 0.6 MG TABLET PO SCH (10:10)
[2020-05-30] MEDS: LUBIPROSTONE 24 MCG CAPSULE PO SCH ×3 (10:10→21:46)
[2020-05-30] MEDS: SACUBITRIL/VALSARTAN 97 MG/103 MG TABLET PO SCH ×2 (10:11→21:47)
[2020-05-30] MEDS: FERROUS SULFATE 325 MG TABLET PO SCH ×2 (10:11→10:49)
[2020-05-30] MEDS: CALCITRIOL 0.25 MCG CAPSULE PO SCH (10:11)
[2020-05-30] MEDS: MEDROXYPROGESTERONE ACET 10 MG TABLET PO SCH (10:11)
[2020-05-30] MEDS: CARVEDILOL 12.5 MG TABLET PO SCH ×2 (10:49→21:46)
[2020-05-30] MEDS: FUROSEMIDE INJ/PF 40 MG/4 ML SDV IV SCH (10:49)
[2020-05-30 13:08] LABS: APPEARANCE,URINE SLIGHTLY-CLOUDY; BILIRUBIN,URINE NEGATIVE (NEGATIVE); COLOR,URINE YELLOW; GLUCOSE, URINE NEGATIVE (NEGATIVE); KETONES,URINE NEGATIVE (NEGATIVE); LEUKOCYTE ESTERASE,URINE MODERATE (NEGATIVE); NITRITE,URINE NEGATIVE (NEGATIVE); PROTEIN,URINE NEGATIVE (NEGATIVE); URINE SPECIFIC GRAVITY 1.016
[2020-05-30 13:26] LABS: ADD MANUAL MICROSCOPIC YES; BACTERIA,URINE 1+ /HPF
--- NOTE | 2020-05-30 16:10 | PDOC PROGRESS REPORT ---
Subjective Progress Note for:: 05/30/20 Subjective:: Patient seen by the bedside, blood pressure on the low side Reason For Visit: ACUTE ON CHRONIC COMBINED SYSTOLIC HEART FAILURE Physical Exam Vital Signs: Temp Pulse Resp BP Pulse Ox 97.5 F 82 16 97/62 L 97 05/30/20 10:00 05/30/20 14:00 05/30/20 08:36 05/30/20 11:00 05/30/20 08:36 Intake & Output 05/29/20 05/30/20 05/31/20 06:59 06:59 06:59 Intake Total 813 1346 120 Output Total 3975 2865 Balance -3630 -479 120 Weight 99.5 kg 88.6 kg General appearance: PRESENT: no acute distress Eye exam: PRESENT: PERRLA Respiratory exam: PRESENT: clear to auscultation abdi Cardiovascular exam: PRESENT: +S1, +S2 GI/Abdominal exam: PRESENT: soft Neurological exam: PRESENT: alert Results Laboratory Results: 05/30/20 06:00 05/30/20 06:00 05/30/20 05/30/20 05/30/20 06:00 06:00 12:38 WBC 3.8 L RBC 4.26 Hgb 11.7 L Hct 35.8 L MCV 84 MCH 27.4 MCHC 32.6 RDW 18.9 H Plt Count 189 Sodium 140.4 Potassium 3.8 Chloride 107 Carbon Dioxide 28 Anion Gap 5 BUN 41 H Creatinine 2.10 H Est GFR ( Amer) 31 L Glucose 82 Calcium 7.7 L Total Bilirubin 0.5 AST 22 Alkaline Phosphatase 138 H Total Protein 4.6 L Albumin 2.2 L Urine Color YELLOW Urine Appearance SLIGHTLY-CLOUDY Urine pH 5.0 Ur Specific [place] 1.016 Urine Protein NEGATIVE Urine Glucose (UA) NEGATIVE Urine Ketones NEGATIVE Urine Blood SMALL H Urine Nitrite NEGATIVE Ur Leukocyte Esterase MODERATE H Ur Squamous Epith Cells MODERATE 05/20/20 05/20/20 05/20/20 11:47 11:47 11:47 Creatine Kinase 245 H CK-MB (CK-2) 5.41 H Troponin I 0.078 NT-Pro-B Natriuret Pep 59638 H 05/20/20 05/21/20 05/21/20 16:00 21:47 21:47 Creatine Kinase 244 H CK-MB (CK-2) 3.85 Troponin I 0.098 0.076 NT-Pro-B Natriuret Pep 05/22/20 05/22/20 05/22/20 05:44 05:44 15:00 Creatine Kinase 201 H CK-MB (CK-2) 3.26 4.51 Troponin I 0.063 0.060 NT-Pro-B Natriuret Pep 05/22/20 15:15 Creatine Kinase 315 H CK-MB (CK-2) Troponin I NT-Pro-B Natriuret Pep Impressions: Thoracentesis Ultrasound 05/22/20 00:00 IMPRESSION: SUCCESSFUL THORACENTESIS USING ULTRASOUND GUIDANCE. Chest X-Ray 05/26/20 06:00 IMPRESSION: Partial clearing of right basilar airspace disease compared 05/20/2020 Trace residual bilateral pleural effusions Assessment & Plan - Diagnosis (1) Acute combined systolic and diastolic congestive heart failure, NYHA class 1 Is this a current diagnosis for this admission?: Yes Plan: Patient to continue dobutamine and dopamine (2) CKD (chronic kidney disease) stage 3, GFR 30-59 ml/min Is this a current diagnosis for this admission?: Yes (3) Chronic combined systolic (congestive) and diastolic (congestive) heart failure Is this a current diagnosis for this admission?: Yes (4) 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 care (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 of 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 Is this a current diagnosis for this admission?: Yes (5) Type 2 diabetes mellitus Qualifiers: Diabetes mellitus machine long goods helper insulin use: without prison use Diabetes mellitus complication status: with kidney complications Diabetes mellitus complication detail: with chronic kidney disease Chronic kidney disease stage: stage 3 (moderate) Qualified Code(s): E11.22 - Type 2 diabetes mellitus with diabetic chronic kidney disease; N18.3 - Chronic kidney disease, stage 3 (moderate) Is this a current diagnosis for this admission?: Yes (6) Hypotension Qualifiers: Hypotension type: unspecified hypotension type Qualified Code(s): I95.9 - Hypotension, unspecified Is this a current diagnosis for this admission?: Yes - Time Time Spent with patient: 25-34 minutes Level of Care: IMCU Medications reviewed and adjusted accordingly: Yes Anticipated discharge: Home Anticipated DC Timeframe: within 72 hours
[2020-05-30] MEDS: FUROSEMIDE 80 MG TABLET PO SCH (17:13)
[2020-05-30] MEDS: ZOLPIDEM TARTRATE 5 MG TABLET PO SCH (21:43)
[2020-05-30] MEDS: ATORVASTATIN CALCIUM 80 MG TABLET PO SCH (21:45)
[2020-05-30] MEDS: WARFARIN SODIUM 7.5 MG TABLET PO SCH (21:47)
[2020-05-30] MEDS: MORPHINE SULFATE 10 MG/ML INJ IV PRN (21:48)
--- NOTE | 2020-05-30 22:00 | Progress Note ---
Provider Note Provider Note: CARDIOLOGY PROGRESS NOTE by Dr. Toño Lake on 05/30/2020. SUBJECTIVE: The patient shortness of breath is much improved. She has no shortness of breath at rest. Her appetite is improved. There is no firing of AICD. She denies any chest pain or discomfort. She does still have some orthopnea but no PND. Her leg edema is only trace at present. There no excessive vaginal bleeding. There is no recurrence of DVT or PE. PHYSICAL EXAMINATION: The patient is mild to moderately obese. In no acute distress. Selected Entries 05/30/20 05/30/20 05/30/20 08:00 11:00 14:00 Temperature Pulse Rate 71 82 Respiratory Rate Blood Pressure 97/62 L Blood Pressure 73 Mean BP Location BP Position O2 Sat by Pulse Oximetry Fraction of Inspired Oxygen (FIO2) Oxygen Flow 4 Rate Oxygen Delivery Method 05/30/20 05/30/20 05/30/20 15:38 16:00 19:53 Temperature 98.4 F Pulse Rate 70 Respiratory 16 Rate Blood Pressure 108/73 Blood Pressure 84 Mean BP Location Right Arm BP Position Sitting O2 Sat by Pulse 99 Oximetry Fraction of 36 Inspired Oxygen (FIO2) Oxygen Flow 4.00 Rate Oxygen Delivery Nasal Cannula Method GENERAL: She is alert and oriented x3 HEAD: Atraumatic, normocephalic. EYES: JACKY, sclera anicteric, conjunctiva are normal. ENT: Moist mucous membranes. No oral ulcerations or bleeding gums noted. No obvious ear, nose or throat abnormalities noted. NECK: supple without lymphadenopathy. Trachea is central. No cervical or axillary lymphadenopathy noted. Carotids are 2+, and there is no carotid bruits. JVD is is normal.. LUNGS: There is better air entry in the bases. There is no rhonchi or wheezing. There is bibasilar rales of CHF. CHEST: Palpation of the chest wall shows no significant chest wall tenderness. 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 ABDOMEN: Soft, no significant tenderness appreciated, normoactive bowel sounds. No guarding, no rebound. No rigidity noted . No masses appreciated. EXTREMITIES: Femorals are diminished. There is no femoral bruits pedal pulses are 1+, no calf tenderness noted. No clubbing or cyanosis. Bilateral trace pedal edema noted NEUROLOGICAL: Focused neurological exam showed no significant neurologic deficit. Normal speech, no focal weakness appreciated. PSYCH: Normal mood, normal affect. Judgment and insight within normal limits. SKIN: No significant ecchymosis, skin is noted to be warm. MUSCULOSKELETAL EXAM: No significant acute joint swelling noted. The patient's 24-hour intake is 1346 mL. Output is 1875 mL. Labs- All tests 24 hr 05/30/20 05/30/20 05/30/20 06:00 06:00 06:00 WBC 3.8 L RBC 4.26 Hgb 11.7 L Hct 35.8 L MCV 84 MCH 27.4 MCHC 32.6 RDW 18.9 H Plt Count 189 PT 29.7 H INR 2.84 Sodium 140.4 Potassium 3.8 Chloride 107 Carbon Dioxide 28 Anion Gap 5 BUN 41 H Creatinine 2.10 H Est GFR ( Amer) 31 L Est GFR (MDRD) Non-Af 25 L Glucose 82 POC Glucose Calcium 7.7 L Total Bilirubin 0.5 Direct Bilirubin 0.4 Neonat Total Bilirubin Not Reportable Neonat Direct Bilirubin Not Reportable Neonat Indirect Bili Not Reportable AST 22 ALT 10 Alkaline Phosphatase 138 H Total Protein 4.6 L Albumin 2.2 L Urine Color Urine Appearance Urine pH Ur Specific [place] Urine Protein Urine Glucose (UA) Urine Ketones Urine Blood Urine Nitrite Urine Bilirubin Urine Urobilinogen Ur Leukocyte Esterase Urine RBC Urine WBC Ur Squamous Epith Cells Urine Bacteria Urine Mucus Urine Ascorbic Acid 05/30/20 05/30/20 05/30/20 07:35 11:10 12:38 WBC RBC Hgb Hct MCV MCH MCHC RDW Plt Count PT INR Sodium Potassium Chloride Carbon Dioxide Anion Gap BUN Creatinine Est GFR ( Amer) Est GFR (MDRD) Non-Af Glucose POC Glucose 88 98 Calcium Total Bilirubin Direct Bilirubin Neonat Total Bilirubin Neonat Direct Bilirubin Neonat Indirect Bili AST ALT Alkaline Phosphatase Total Protein Albumin Urine Color YELLOW Urine Appearance SLIGHTLY-CLOUDY Urine pH 5.0 Ur Specific [place] 1.016 Urine Protein NEGATIVE Urine Glucose (UA) NEGATIVE Urine Ketones NEGATIVE Urine Blood SMALL H Urine Nitrite NEGATIVE Urine Bilirubin NEGATIVE Urine Urobilinogen 2.0 H Ur Leukocyte Esterase MODERATE H Urine RBC 1-5 Urine WBC 5-10 Ur Squamous Epith Cells MODERATE Urine Bacteria 1+ Urine Mucus TRACE Urine Ascorbic Acid NEGATIVE 05/30/20 05/30/20 15:36 21:08 WBC RBC Hgb Hct MCV MCH MCHC RDW Plt Count PT INR Sodium Potassium Chloride Carbon Dioxide Anion Gap BUN Creatinine Est GFR ( Amer) Est GFR (MDRD) Non-Af Glucose POC Glucose 103 105 Calcium Total Bilirubin Direct Bilirubin Neonat Total Bilirubin Neonat Direct Bilirubin Neonat Indirect Bili AST ALT Alkaline Phosphatase Total Protein Albumin Urine Color Urine Appearance Urine pH Ur Specific [place] Urine Protein Urine Glucose (UA) Urine Ketones Urine Blood Urine Nitrite Urine Bilirubin Urine Urobilinogen Ur Leukocyte Esterase Urine RBC Urine WBC Ur Squamous Epith Cells Urine Bacteria Urine Mucus Urine Ascorbic Acid Chest X-Ray 05/20/20 12:08 IMPRESSION: Interval development of moderate size right pleural effusion and possible small left pleural effusion. Patchy opacity over the right lung apex as well. Findings may be on the basis of congestive heart failure, though an infectious etiology could appear similar. Moderate cardiomegaly. Chest X-Ray 05/22/20 00:00 IMPRESSION: Satisfactory placement of the right IJ central venous catheter. Thoracentesis Ultrasound 05/22/20 00:00 IMPRESSION: SUCCESSFUL THORACENTESIS USING ULTRASOUND GUIDANCE. Chest X-Ray 05/22/20 14:20 IMPRESSION: NO PNEUMOTHORAX FOLLOWING THORACENTESIS. Chest X-Ray 05/22/20 16:20 IMPRESSION: 1. Status post thoracentesis, no pneumothorax. 2. No other significant interval changes since examination performed earlier on 05/22/2020. Chest X-Ray 05/26/20 06:00 IMPRESSION: Partial clearing of right basilar airspace disease compared 05/20/2020 Trace residual bilateral pleural effusions RECOMMENDATION/IMPRESSION: 1. Acute on chronic systolic heart failure.: The patient's dobutamine is already been stopped. We will stop the patient's dopamine. Will increase the patient's may midodrine. We will stop the patient's IV Lasix and convert to p.o. Lasix. We will discontinue the patient's topical nitrates. We will watch the patient blood pressure. Will repeat chest x-ray in the a.m. 2. Dilated cardiomyopathy and ischemic cardiomyopathy with severely reduced LV ejection fraction: The patient already on beta-bear and Entresto. Continue the same. 3. Coronary artery disease. History of a myocardial infarction in the past at present no anginal symptoms. The patient has a history of stent in unknown vessel. 4. History of hypertension: Patient blood pressure on the lower side. Blood pressure is better on Midorine 5. Chronic kidney disease stage III: Anticipate this would improve with the patient's heart failure treatment. Will check labs in the a.m. 6. 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 7. History of sleep apnea. Continue CPAP at night. 8. History of AICD placement: Recent interrogation of the AICD shows that it is functioning normally. No firing of AICD. 9. History of vaginal bleed patient for possible hysterectomy in the immediate future. Still having vaginal bleed. Hemoglobin is stable. Medications reviewed. Medications adjusted medical regimen and management plan discussed with the attending provider on the case. Medical decision making is of high complexity due to multiple medication changes.. 40 minutes spent on this patient more than 50% time spent in direct patient care. Will follow
[2020-05-31] MEDS: MIDODRINE HCL 5 MG TABLET PO SCH ×3 (05:57→17:29)
[2020-05-31] MEDS: PANTOPRAZOLE SODIUM 40 MG TABLET.DR PO SCH (05:57)
[2020-05-31 06:50] LABS: INTERNATIONAL RATION (INR) 2.92; PROTHROMBIN TIME 30.4 SEC (11.4-15.4)
[2020-05-31] MEDS: MEDROXYPROGESTERONE ACET 10 MG TABLET PO SCH (09:03)
[2020-05-31] MEDS: ALLOPURINOL 100 MG TABLET PO SCH (09:03)
[2020-05-31] MEDS: CALCITRIOL 0.25 MCG CAPSULE PO SCH (09:03)
[2020-05-31] MEDS: LUBIPROSTONE 24 MCG CAPSULE PO SCH ×2 (09:03→21:55)
[2020-05-31] MEDS: FUROSEMIDE 80 MG TABLET PO SCH ×2 (09:03→17:29)
[2020-05-31] MEDS: COLCHICINE 0.6 MG TABLET PO SCH (09:03)
[2020-05-31] MEDS: SACUBITRIL/VALSARTAN 97 MG/103 MG TABLET PO SCH ×2 (09:03→21:54)
[2020-05-31] MEDS: CARVEDILOL 12.5 MG TABLET PO SCH ×2 (09:03→21:55)
[2020-05-31] MEDS: FERROUS SULFATE 325 MG TABLET PO SCH (09:04)
--- NOTE | 2020-05-31 10:05 | RADIOLOGY REPORT (SQ) ---
EXAM DESCRIPTION: CHEST SINGLE VIEW IMAGES COMPLETED DATE/TIME: 05/31/2020 9:13 am REASON FOR STUDY: CHF COMPARISON: 05/26/2020 NUMBER OF VIEWS: One view. TECHNIQUE: Single frontal radiographic image of the chest acquired. LIMITATIONS: None. FINDINGS: LUNGS AND PLEURA: Improved aeration with residual bilateral effusions. MEDIASTINUM AND HEART: Stable heart size and mediastinal structures. SUPPORT DEVICES: Appropriate location without change. BONY STRUCTURES: No acute findings. HARDWARE: None. OTHER: No other significant finding. IMPRESSION: Improving CHF. Reading location - IP/workstation name: [email or web address]
--- NOTE | 2020-05-31 16:34 | Progress Note ---
Provider Note Provider Note: CARDIOLOGY PROGRESS NOTE by Dr. Maite Carter on 06/27/2020. OBJECTIVE: The patient denies any chest pain or discomfort. There is no shortness of breath. She has chronic orthopnea but this is improved. There is no PND. There is no leg edema. There is no arrhythmias seen on the monitor. There is no firing of her AICD. Her blood pressure is much improved on midodrine. PHYSICAL EXAMINATION: The patient is moderately obese. At present in no acute distress Selected Entries 05/31/20 05/31/20 16:00 20:42 Temperature 97.6 F Temperature Oral Source Pulse Rate 67 Respiratory 18 Rate Blood Pressure 109/68 [Upper Arm] Blood Pressure 81 Mean [Upper Arm ] Blood Pressure Sitting Position [Upper Arm] O2 Sat by Pulse 100 Oximetry Oxygen Delivery Nasal Cannula Method ( includes room air) Oxygen Flow 4 Rate GENERAL: She is alert and oriented x3 HEAD: Atraumatic, normocephalic. EYES: JACKY, sclera anicteric, conjunctiva are normal. ENT: Moist mucous membranes. No oral ulcerations or bleeding gums noted. No obvious ear, nose or throat abnormalities noted. NECK: supple without lymphadenopathy. Trachea is central. No cervical or axillary lymphadenopathy noted. Carotids are 2+, and there is no carotid bruits. JVD is is normal.. LUNGS: There is better air entry in the bases. There is no rhonchi or wheezing. There is bibasilar rales of CHF. CHEST: Palpation of the chest wall shows no significant chest wall tenderness. 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 ABDOMEN: Soft, no significant tenderness appreciated, normoactive bowel sounds. No guarding, no rebound. No rigidity noted . No masses appreciated. EXTREMITIES: Femorals are diminished. There is no femoral bruits pedal pulses are 1+, no calf tenderness noted. No clubbing or cyanosis. Bilateral trace pedal edema noted NEUROLOGICAL: Focused neurological exam showed no significant neurologic deficit. Normal speech, no focal weakness appreciated. PSYCH: Normal mood, normal affect. Judgment and insight within normal limits. SKIN: No significant ecchymosis, skin is noted to be warm. MUSCULOSKELETAL EXAM: No significant acute joint swelling noted. The patient's 24-hour intake is 1161 mL. Output is 600 mL. RECOMMENDATION/IMPRESSION: 1. Acute on chronic systolic heart failure.: The patient's dopamine and dobutamine have been stopped. Her major pain is now 10 mg p.o. 3 times daily. Her IV Lasix has been stopped and the patient is on p.o. Lasix. We will stop the patient's IV Lasix and convert to p.o. Lasix. We will discontinue the patient's topical nitrates. We will watch the patient blood pressure. Will repeat chest x-ray in the a.m. 2. Dilated cardiomyopathy and ischemic cardiomyopathy with severely reduced LV ejection fraction: The patient already on beta-bear and Entresto. Continue the same. 3. Coronary artery disease. History of a myocardial infarction in the past at present no anginal symptoms. The patient has a history of stent in unknown ves kahlil. 4. History of hypertension: Patient blood pressure on the lower side. Blood pressure is better on Midorine 5. Chronic kidney disease stage III: Anticipate this would improve with the patient's heart failure treatment. Will check labs in the a.m. 6. 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 7. History of sleep apnea. Continue CPAP at night. 8. History of AICD placement: Recent interrogation of the AICD shows that it is functioning normally. No firing of AICD. 9. History of vaginal bleed patient for possible hysterectomy in the immediate future. Still having vaginal bleed. Hemoglobin is stable. Medications reviewed. Medications adjusted medical regimen and management plan discussed with the attending provider on the case. Medical decision making is of moderate complexity due to multiple medication changes.. 40 minutes spent on this patient more than 50% time spent in direct patient care. Will follow
--- NOTE | 2020-05-31 19:20 | PDOC PROGRESS REPORT ---
Subjective Progress Note for:: 05/31/20 Subjective:: Patient seen by the bedside improved on midodrine Reason For Visit: ACUTE ON CHRONIC COMBINED SYSTOLIC HEART FAILURE Physical Exam Vital Signs: Temp Pulse Resp BP Pulse Ox 97.6 F 67 18 109/68 100 05/31/20 16:00 05/31/20 16:00 05/31/20 16:00 05/31/20 16:00 05/31/20 16:00 Intake & Output 05/30/20 05/31/20 06/01/20 06:59 06:59 06:59 Intake Total 1346 1161 Output Total 1875 600 300 Balance -529 561 -300 Weight 88.6 kg 90.1 kg General appearance: PRESENT: no acute distress Eye exam: PRESENT: PERRLA Respiratory exam: PRESENT: clear to auscultation abdi Cardiovascular exam: PRESENT: +S1, +S2 GI/Abdominal exam: PRESENT: soft Neurological exam: PRESENT: alert Results Laboratory Results: 05/30/20 06:00 05/30/20 06:00 05/20/20 05/20/20 05/20/20 11:47 11:47 11:47 Creatine Kinase 245 H CK-MB (CK-2) 5.41 H Troponin I 0.078 NT-Pro-B Natriuret Pep 91975 H 05/20/20 05/21/20 05/21/20 16:00 21:47 21:47 Creatine Kinase 244 H CK-MB (CK-2) 3.85 Troponin I 0.098 0.076 NT-Pro-B Natriuret Pep 05/22/20 05/22/20 05/22/20 05:44 05:44 15:00 Creatine Kinase 201 H CK-MB (CK-2) 3.26 4.51 Troponin I 0.063 0.060 NT-Pro-B Natriuret Pep 05/22/20 15:15 Creatine Kinase 315 H CK-MB (CK-2) Troponin I NT-Pro-B Natriuret Pep Impressions: Thoracentesis Ultrasound 05/22/20 00:00 IMPRESSION: SUCCESSFUL THORACENTESIS USING ULTRASOUND GUIDANCE. Chest X-Ray 05/31/20 06:00 IMPRESSION: Improving CHF. 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 Is this a current diagnosis for this admission?: Yes (5) Type 2 diabetes mellitus Qualifiers: Diabetes mellitus custodial insulin use: without custodial use Diabetes mellitus complication status: with kidney complications Diabetes mellitus com plication detail: with chronic kidney disease Chronic kidney disease stage: stage 3 (moderate) Qualified Code(s): E11.22 - Type 2 diabetes mellitus with diabetic chronic kidney disease; N18.3 - Chronic kidney disease, stage 3 (moderate) Is this a current diagnosis for this admission?: Yes (6) Hypotension Qualifiers: Hypotension type: unspecified hypotension type Qualified Code(s): I95.9 - Hypotension, unspecified Is this a current diagnosis for this admission?: Yes - Time Time Spent with patient: 15-24 minutes Level of Care: IMCU Anticipated discharge: Home Anticipated DC Timeframe: within 24 hours
[2020-05-31] MEDS: WARFARIN SODIUM 7.5 MG TABLET PO SCH (21:55)
[2020-05-31] MEDS: ZOLPIDEM TARTRATE 5 MG TABLET PO SCH (21:55)
[2020-05-31] MEDS: ATORVASTATIN CALCIUM 80 MG TABLET PO SCH (21:55)
[2020-05-31] MEDS: ONDANSETRON HCL INJ/PF 4 MG/2 ML SDV IV PRN (21:59)
[2020-05-31] MEDS: DIPHENHYDRAMINE HCL 50 MG/ML VIAL IV PRN (21:59)
[2020-05-31] MEDS: MORPHINE SULFATE 10 MG/ML INJ IV PRN (21:59)
[2020-06-01] MEDS: MIDODRINE HCL 5 MG TABLET PO SCH ×3 (06:35→17:14)
[2020-06-01] MEDS: PANTOPRAZOLE SODIUM 40 MG TABLET.DR PO SCH (06:35)
[2020-06-01 07:05] LABS: INTERNATIONAL RATION (INR) 3.35; PROTHROMBIN TIME 33.7 SEC (11.4-15.4)
[2020-06-01] MEDS: FUROSEMIDE 80 MG TABLET PO SCH ×2 (10:53→17:13)
[2020-06-01] MEDS: MEDROXYPROGESTERONE ACET 10 MG TABLET PO SCH (10:53)
[2020-06-01] MEDS: ALLOPURINOL 100 MG TABLET PO SCH (10:53)
[2020-06-01] MEDS: SACUBITRIL/VALSARTAN 97 MG/103 MG TABLET PO SCH (10:53)
[2020-06-01] MEDS: FERROUS SULFATE 325 MG TABLET PO SCH (10:53)
[2020-06-01] MEDS: CALCITRIOL 0.25 MCG CAPSULE PO SCH (10:53)
[2020-06-01] MEDS: COLCHICINE 0.6 MG TABLET PO SCH (10:54)
[2020-06-01] MEDS: CARVEDILOL 12.5 MG TABLET PO SCH (10:54)
[2020-06-01] MEDS: LUBIPROSTONE 24 MCG CAPSULE PO SCH (10:55)
--- NOTE | 2020-06-01 13:13 | Progress Note ---
Provider Note Provider Note: CARDIOLOGY PROGRESS NOTE by Dr. Maite Carter on 06/01/2020. OBJECTIVE: The patient denies any chest pain or discomfort. There is no shortness of breath. There is no PND orthopnea or leg edema. There is only trace leg edema present. She has no palpitations. There is no arrhythmias seen on the monitor. There is no firing of the AICD. The patient appears to be fairly well compensated and is able to ambulate inside the room. The patient's INR is 3.35. PHYSICAL EXAMINATION: The patient is moderate to severely obese. In no acute distress. Selected Entries 06/01/20 06/01/20 07:12 07:59 Temperature 97.7 F Temperature Oral Source Pulse Rate 70 Respiratory 20 Rate Blood Pressure 116/74 [Right Upper Arm] Blood Pressure 88 Mean [Right Upper Arm] Blood Pressure Supine Position [Right Upper Arm] O2 Sat by Pulse 100 Oximetry Oxygen Delivery Nasal Cannula Method ( includes room air) Fraction of 36 Inspired Oxygen (FIO2) Oxygen Flow 4 Rate GENERAL: She is alert and oriented x3 HEAD: Atraumatic, normocephalic. EYES: JACKY, sclera anicteric, conjunctiva are normal. ENT: Moist mucous membranes. No oral ulcerations or bleeding gums noted. No obvious ear, nose or throat abnormalities noted. NECK: supple without lymphadenopathy. Trachea is central. No cervical or axillary lymphadenopathy noted. Carotids are 2+, and there is no carotid bruits. JVD is is normal.. LUNGS: There is better air entry in the bases. There is no rhonchi or wheezing. There is bibasilar rales of CHF. CHEST: Palpation of the chest wall shows no significant chest wall tenderness. 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 ABDOMEN: Soft, no significant tenderness appreciated, normoactive bowel sounds. No guarding, no rebound. No rigidity noted . No masses appreciated. EXTREMITIES: Femorals are diminished. There is no femoral bruits pedal pulses are 1+, no calf tenderness noted. No clubbing or cyanosis. Bilateral trace pedal edema noted NEUROLOGICAL: Focused neurological exam showed no significant neurologic deficit. Normal speech, no focal weakness appreciated. PSYCH: Normal mood, normal affect. Judgment and insight within normal limits. SKIN: No significant ecchymosis, skin is noted to be warm. MUSCULOSKELETAL EXAM: No significant acute joint swelling noted. The patient's 24-hour intake is 221 mL. Output is 700 mL. Chest X-Ray 05/20/20 12:08 IMPRESSION: Interval development of moderate size right pleural effusion and possible small left pleural effusion. Patchy opacity over the right lung apex as well. Findings may be on the basis of congestive heart failure, though an infectious etiology could appear similar. Moderate cardiomegaly. Chest X-Ray 05/22/20 00:00 IMPRESSION: Satisfactory placement of the right IJ central venous catheter. Thoracentesis Ultrasound 05/22/20 00:00 IMPRESSION: SUCCESSFUL THORACENTESIS USING ULTRASOUND GUIDANCE. Chest X-Ray 05/22/20 14:20 IMPRESSION: NO PNEUMOTHORAX FOLLOWING THORACENTESIS. Chest X-Ray 05/22/20 16:20 IMPRESSION: 1. Status post thoracentesis, no pneumothorax. 2. No other significant interval changes since examination performed earlier on 05/22/2020. Chest X-Ray 05/26/20 06:00 IMPRESSION: Partial clearing of right basilar airspace disease compared 05/20/2020 Trace residual bilateral pleural effusions Chest X-Ray 05/31/20 06:00 IMPRESSION: Improving CHF. Labs- All tests 24 hr 05/31/20 06/01/20 06/01/20 21:04 06:40 07:53 PT 33.7 H INR 3.35 POC Glucose 138 H 88 06/01/20 06/01/20 11:06 16:10 PT INR POC Glucose 105 129 H RECOMMENDATION/IMPRESSION: 1. Acute on chronic systolic heart failure.: Patient back to her baseline. At present CHF is compensated. Continue beta-bear Entresto and diuretics. Continue Midrodrine. 2. Dilated cardiomyopathy and ischemic cardiomyopathy with severely reduced LV ejection fraction: The patient already on beta-bear and Entresto. Continue the same. 3. Coronary artery disease. History of a myocardial infarction in the past at present no anginal symptoms. The patient has a history of stent in unknown vessel. 4. History of hypertension: Patient blood pressure on the lower side. Blood pressure is better on Midorine 5. Chronic kidney disease stage III: Anticipate this would improve with the patient's heart failure treatment. Will check labs in the a.m. 6. 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 7. History of sleep apnea. Continue CPAP at night. 8. History of AICD placement: Recent interrogation of the AICD shows that it is functioning normally. No firing of AICD. 9. History of vaginal bleed patient for possible hysterectomy in the immediate future. Still having vaginal bleed. Hemoglobin is stable. Medications reviewed. Medications adjusted medical regimen and management plan discussed with the attending provider on the case. Medical decision making is of moderate complexity due to multiple medication changes.. 40 minutes spent on this patient more than 50% time spent in direct patient care. Cardiac status is stable. We will sign off and follow the patient in the office.
[2020-06-01] MEDS: MORPHINE SULFATE 10 MG/ML INJ IV PRN (14:54)
[2020-06-01] MEDS: ONDANSETRON HCL INJ/PF 4 MG/2 ML SDV IV PRN (14:55)
[2020-06-01] MEDS: DIPHENHYDRAMINE HCL 50 MG/ML VIAL IV PRN (14:59)
[2020-06-01 18:05] VITALS: BP 109/68
--- NOTE | 2020-06-01 20:58 | PDOC DISCHARGE SUMMARY ---
Impression - Admit/DC Date/PCP Admission Date/Primary Care Provider: 05/20/20 17:59 VU GUZMAN MD Discharge Date: 06/01/20 - Discharge Diagnosis (1) Acute combined systolic and diastolic congestive heart failure, NYHA class 1 Is this a current diagnosis for this admission?: Yes (2) CKD (chronic kidney disease) stage 3, GFR 30-59 ml/min Is this a current diagnosis for this admission?: Yes (3) Chronic combined systolic (congestive) and diastolic (congestive) heart failure Is this a current diagnosis for this admission?: Yes (4) [facility] (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 of 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 Is this a current diagnosis for this admission?: Yes (5) Type 2 diabetes mellitus Is this a current diagnosis for this admission?: Yes (6) Hypotension Is this a current diagnosis for this admission?: Yes - Additional Information Discharge Diet: Cardiac, Diabetic Discharge Activity: Activity As Tolerated, Balance Activity w/Rest, Weigh Daily Referrals: VU GUZMAN MD [Primary Care Provider] - 06/11/20 11:30 am Prescriptions: Carvedilol [Coreg 12.5 mg Tablet] 12.5 mg PO Q12 #180 Sacubitril/Valsartan [Entresto 97 mg/103 mg Tablet] 1 tab PO Q12 #60 tablet Midodrine HCl [Proamatine 5 mg Tablet] 10 mg PO TID@0600,1200,1800 #90 tablet Home Medications: Allopurinol [Zyloprim 100 mg Tablet] 100 mg PO DAILY 10/30/19 Amlodipine Besylate [Norvasc 10 mg Tablet] 10 mg PO DAILY 10/30/19 Atorvastatin Calcium [Lipitor 80 mg Tablet] 80 mg PO QHS 10/30/19 Bumetanide [Bumex 1 mg Tablet] 3 mg PO DAILY 10/30/19 Calcitriol [Rocaltrol 0.25 mcg Capsule] 0.25 mcg PO DAILY 10/30/19 Ferrous Sulfate [Feosol 325 mg Tablet] 325 mg PO DAILY 10/30/19 Furosemide [Lasix 80 mg Tablet] 80 mg PO Q8 10/30/19 Isosorbide Dinitrate [Isordil Titradose 20 mg Tablet] 60 mg PO Q8 10/30/19 Lubiprostone [Amitiza 24 Mcg Capsule] 24 mcg PO Q12 10/30/19 Tramadol HCl [Ultram 50 mg Tablet] 50 mg PO Q6HP PRN 10/30/19 Zolpidem Tartrate [Ambien] 10 mg PO QHS 10/30/19 Diphenhydramine HCl [Benadryl] 50 mg PO Q8HP PRN 10/31/19 Omeprazole 40 mg PO DAILY 10/31/19 Warfarin Sodium [Jantoven 7.5 mg Tablet] 7.5 mg PO DAILY 10/31/19 Colchicine [Colcrys 0.6 mg Tablet] 1 tab PO DAILY 05/21/20 Doxepin HCl [Silenor] 6 mg PO QHS 05/21/20 Ergocalciferol (Vitamin D2) [Vitamin D2] 50,000 unit PO DIOP@1000 05/21/20 Fluconazole [Diflucan] 150 mg PO DIOP@1000 05/21/20 Medroxyprogesterone Acetate [Provera] 10 mg PO DAILY 05/21/20 Carvedilol [Coreg 12.5 mg Tablet] 12.5 mg PO Q12 #180 06/01/20 Midodrine HCl [Proamatine 5 mg Tablet] 10 mg PO TID@0600,1200,1800 #90 tablet 06/01/20 Sacubitril/Valsartan [Entresto 97 mg/103 mg Tablet] 1 tab PO Q12 #60 tablet 06/01/20 History of Present Illiness History of Present Illness: BERONICA YEUNG is a 45 year old female, Patient is well-known to me very unfortunate young female with multiple comorbid conditions including chronic systolic and diastolic heart failure, nephrotic syndrome, diabetes mellitus complicated with neuropathy, nephropathy, retinopathy, status post AICD pacemaker implantation, on megadoses of diuretic she presented emergency room for evaluation of progress shortness of breath despite medication adherence. She was evaluated in the emergency room, a chest x-ray was done, the chest x-ray demonstrated, moderate right pleural effusion, patchy opacity over the right lung apex also was a small left pleural effusion there was no definite left sided pulmonary consolidation no masses there was cardiomegaly. The serum B type natruretic peptide was elevated consistent with CHF Hospital Course Hospital Course: Patient was admitted for the management of acute systolic heart failure associated with low blood pressure, she was treated with furosemide infusion, dobutamine, dopamine. She has large right pleural effusion, she underwent tho racentesis over a liter of fluid was collected from the right lung. She was seen in consultation by Dr. Pal cardiology. She has chronic combined systolic and diastolic heart failure status post AICD pacemaker placement Physical Exam Vital Signs: Temp Pulse Resp BP Pulse Ox 97.7 F 70 20 109/68 100 06/01/20 18:02 06/01/20 18:02 06/01/20 18:02 06/01/20 18:02 06/01/20 18:02 Intake & Output 05/31/20 06/01/20 06/02/20 06:59 06:59 06:59 Intake Total 1161 221 930 Output Total 600 700 600 Balance 561 -479 330 Weight 90.1 kg 97.2 kg General appearance: PRESENT: no acute distress Eye exam: PRESENT: PERRLA Respiratory exam: PRESENT: clear to auscultation abdi Cardiovascular exam: PRESENT: +S1, +S2 GI/Abdominal exam: PRESENT: soft Neurological exam: PRESENT: alert, CN II-XII grossly intact Results Laboratory Results: WBC 3.8 10^3/uL (4.0-10.5) L 05/30/20 06:00 RBC 4.26 10^6/uL (3.72-5.28) 05/30/20 06:00 Hgb 11.7 g/dL (12.0-15.5) L 05/30/20 06:00 Hct 35.8 % (36.0-47.0) L 05/30/20 06:00 MCV 84 fl (80-97) 05/30/20 06:00 MCH 27.4 pg (27.0-33.4) 05/30/20 06:00 MCHC 32.6 g/dL (32.0-36.0) 05/30/20 06:00 RDW 18.9 % (11.5-14.0) H 05/30/20 06:00 Plt Count 189 10^3/uL (150-450) 05/30/20 06:00 Lymph % (Auto) 11.1 % (13-45) L 05/20/20 11:47 [place] % (Auto) 7.2 % (3-13) 05/20/20 11:47 Eos % (Auto) 0.8 % (0-6) 05/20/20 11:47 Baso % (Auto) 1.1 % (0-2) 05/20/20 11:47 Absolute Neuts (auto) 4.3 10^3/uL (1.7-8.2) 05/20/20 11:47 Absolute Lymphs (auto) 0.6 10^3/uL (0.5-4.7) 05/20/20 11:47 Absolute Monos (auto) 0.4 10^3/uL (0.1-1.4) 05/20/20 11:47 Absolute Eos (auto) 0.0 10^3/uL (0.0-0.6) 05/20/20 11:47 Absolute Basos (auto) 0.1 10^3/uL (0.0-0.2) 05/20/20 11:47 Seg Neutrophils % 79.8 % (42-78) H 05/20/20 11:47 PT 33.7 SEC (11.4-15.4) H 06/01/20 06:40 INR 3.35 06/01/20 06:40 INR (Anticoag Therapy) Cancelled 05/25/20 06:10 APTT 31.8 SEC (23.5-35.8) 05/21/20 21:47 Carbonic Acid 0.94 mmol/L (1.05-1.35) L 05/20/20 16:35 HCO3/H2CO3 Ratio 18:1 05/20/20 16:35 ABG pH 7.35 (7.35-7.45) 05/20/20 16:35 ABG pCO2 31.3 mmHg (35-45) L 05/20/20 16:35 ABG pO2 85.9 mmHg (80-100) 05/20/20 16:35 ABG HCO3 17.0 mmol/L (20-24) L 05/20/20 16:35 ABG Total CO2 18.0 mmol/L (21-25) L 05/20/20 16:35 ABG O2 Saturation 96.2 % (94-98) 05/20/20 16:35 ABG Base Excess -7.2 mmol/L 05/20/20 16:35 VBG pH 7.40 (7.30-7.42) 05/20/20 11:47 VBG pCO2 29.1 mmHg (35-63) L 05/20/20 11:47 VBG HCO3 17.6 mmol/L (20-32) L 05/20/20 11:47 VBG Base Excess -5.6 mmol/L 05/20/20 11:47 FiO2 30% 05/20/20 16:35 Sodium 140.4 mmol/L (137-145) 05/30/20 06:00 Potassium 3.8 mmol/L (3.6-5.0) 05/30/20 06:00 Chloride 107 mmol/L (98-107) 05/30/20 06:00 Carbon Dioxide 28 mmol/L (22-30) 05/30/20 06:00 Anion Gap 5 (5-19) 05/30/20 06:00 BUN 41 mg/dL (7-20) H 05/30/20 06:00 Creatinine 2.10 mg/dL (0.52-1.25) H 05/30/20 06:00 Est GFR ( Amer) 31 (>60) L 05/30/20 06:00 Est GFR (MDRD) Non-Af 25 (>60) L 05/30/20 06:00 Glucose 82 mg/dL (75-110) 05/30/20 06:00 POC Glucose 129 mg/dL (70-110) H 06/01/20 16:10 Lactic Acid 1.3 mmol/L (0.7-2.1) 05/20/20 11:47 Calcium 7.7 mg/dL (8.4-10.2) L 05/30/20 06:00 Magnesium 1.8 mg/dL (1.6-2.3) 05/26/20 19:20 Total Bilirubin 0.5 mg/dL (0.2-1.3) 05/30/20 06:00 Direct Bilirubin 0.4 mg/dL (0.0-0.4) 05/30/20 06:00 Neonat Total Bilirubin Not Reportable 05/30/20 06:00 Neonat Direct Bilirubin Not Reportable 05/30/20 06:00 Neonat Indirect Bili Not Reportable 05/30/20 06:00 AST 22 U/L (14-36) 05/30/20 06:00 ALT 10 U/L (<35) 05/30/20 06:00 Alkaline Phosphatase 138 U/L (38-126) H 05/30/20 06:00 Lactate Dehydrogenase 318 U/L (120-246) H 05/21/20 21:47 Creatine Kinase 315 U/L (30-135) H 05/22/20 15:15 CK-MB (CK-2) 4.51 ng/mL (<4.55) 05/22/20 15:00 Troponin I 0.060 ng/mL 05/22/20 15:00 NT-Pro-B Natriuret Pep 89742 pg/mL (<125) H 05/20/20 11:47 Total Protein 4.6 g/dL (6.3-8.2) L 05/30/20 06:00 Albumin 2.2 g/dL (3.5-5.0) L 05/30/20 06:00 Urine Color YELLOW 05/30/20 12:38 Urine Appearance SLIGHTLY-CLOUDY 05/30/20 12:38 Urine pH 5.0 (5.0-9.0) 05/30/20 12:38 Ur Specific [place] 1.016 05/30/20 12:38 Urine Protein NEGATIVE mg/dL (NEGATIVE) 05/30/20 12:38 Urine Glucose (UA) NEGATIVE mg/dL (NEGATIVE) 05/30/20 12:38 Urine Ketones NEGATIVE mg/dL (NEGATIVE) 05/30/20 12:38 Urine Blood SMALL (NEGATIVE) H 05/30/20 12:38 Urine Nitrite NEGATIVE (NEGATIVE) 05/30/20 12:38 Urine Bilirubin NEGATIVE (NEGATIVE) 05/30/20 12:38 Urine Urobilinogen 2.0 mg/dL (<2.0) H 05/30/20 12:38 Ur Leukocyte Esterase MODERATE (NEGATIVE) H 05/30/20 12:38 Urine WBC (Auto) 0 /HPF 05/28/20 06:30 Urine RBC (Auto) 1 /HPF 05/28/20 06:30 U Hyaline Cast (Auto) 26 /LPF 05/21/20 13:28 Urine Bacteria (Auto) TRACE /HPF 05/28/20 06:30 Urine RBC 1-5 /HPF 05/30/20 12:38 Urine WBC 5-10 /HPF 05/30/20 12:38 Ur Squamous Epith Cells MODERATE /HPF 05/30/20 12:38 Squamous Epi Cells Auto <1 /HPF 05/25/20 11:30 Urine Bacteria 1+ /HPF 05/30/20 12:38 Urine Mucus TRACE 05/30/20 12:38 Urine Mucus (Auto) RARE /LPF 05/25/20 11:30 Urine Creatinine 211.1 mg/dL (15-278) 05/21/20 13:28 Protein/Creatinin Ratio 1.6 mg/mg (0.0-0.2) H 05/21/20 13:28 Urine Total Protein 333.2 mg/dL (<12) H 05/21/20 13:28 Urine Ascorbic Acid NEGATIVE (NEGATIVE) 05/30/20 12:38 Fluid Type PERITONEAL 05/22/20 14:10 Fluid Source ABDOMEN 05/22/20 14:10 Fluid Color STRAW 05/22/20 14:10 Fluid Appearance CLEAR 05/22/20 14:10 Fluid Viscosity LIQUID 05/22/20 14:10 Fluid pH 7.6 (Not Estab.) 05/22/20 14:10 Fluid WBC 21 /uL 05/22/20 14:10 Fluid RBC 508 /uL 05/22/20 14:10 Fluid Seg Neutrophils 36 % 05/22/20 14:10 Fluid Lymphocytes 30 % 05/22/20 14:10 Fluid Monocytes 34 % 05/22/20 14:10 Fluid Eosinophils 0 % 05/22/20 14:10 Fluid Basophils 0 % 05/22/20 14:10 Fluid Glucose 134 mg/dL (.) 05/22/20 14:10 Fluid Total Protein 1.1 g/dL (.) 05/22/20 14:10 Fluid Albumin 0.6 g/dL (Not Estab.) 05/22/20 14:10 Fluid LDH 77 IU/L (.) 05/22/20 14:10 Fluid Amylase 10 U/L (.) 05/22/20 14:10 COVID-19 Source NASOPHARYNGEAL 05/20/20 17:44 COVID-19 (MELINA) NOT DETECTED 05/20/20 17:44 Slides for Path Review SEE COMMENT 05/22/20 14:10 05/20/20 05/20/20 05/20/20 11:47 11:47 16:00 CK-MB (CK-2) 5.41 H Troponin I 0.078 0.098 NT-Pro-B Natriuret Pep 35298 H 0805/22/20 05/22/20 21:47 05:44 15:00 CK-MB (CK-2) 3.85 3.26 4.51 Troponin I 0.076 0.063 0.060 NT-Pro-B Natriuret Pep Impressions: Chest X-Ray 05/20/20 12:08 IMPRESSION: Interval development of moderate size right pleural effusion and possible small left pleural effusion. Patchy opacity over the right lung apex as well. Findings may be on the basis of congestive heart failure, though an infectious etiology could appear similar. Moderate cardiomegaly. Chest X-Ray 05/22/20 00:00 IMPRESSION: Satisfactory placement of the right IJ central venous catheter. Thoracentesis Ultrasound 05/22/20 00:00 IMPRESSION: SUCCESSFUL THORACENTESIS USING ULTRASOUND GUIDANCE. Chest X-Ray 05/22/20 14:20 IMPRESSION: NO PNEUMOTHORAX FOLLOWING THORACENTESIS. Chest X-Ray 05/22/20 16:20 IMPRESSION: 1. Status post thoracentesis, no pneumothorax. 2. No other significant interval changes since examination performed earlier on 05/22/2020. Chest X-Ray 05/26/20 06:00 IMPRESSION: Partial clearing of right basilar airspace disease compared 05/20/2020 Trace residual bilateral pleural effusions Chest X-Ray 05/31/20 06:00 IMPRESSION: Improving CHF. Stroke Is this a Stroke Patient?: No Acute Heart Failure - Is this a Heart Failure Patient?: Yes Documentation of LVEF assessment?: Yes LVEF: LVEF Less Than or Equal to 35% Anticoagulant Therapy: Yes Discharged on Evidence-Based Beta Blockers: Yes Discharged on ARNI?: Yes Discharged on ARB?: N/A-Discharged on ARNI Discharged on ACEI?: N/A Discharged on ARNI For LVEF <35%, discharged on Aldosterone Antagonist?: N/A (LVEF > or = 35%) Follow-up Appointment scheduled within 7 days?: Yes
[2020-06-01] MEDS ORDERED: WARFARIN SODIUM 2 MG TABLET PO SCH (22:00)
[2020-06-01] MEDS ORDERED: WARFARIN SODIUM 5 MG TABLET PO SCH (22:00)
== END 2020-06-01 19:10 | disposition home or self-care (01) | DRG 291 ==
LOC: ER 11:42 → EH 17:59 → 3W 21:00 → 3S 05-31 12:47
PROVIDERS: ADMIT Internal Medicine; ATTEND Internal Medicine
PROC: 02PYX3Z Removal of Infusion Device from Great Vessel, External Approach (ICD-10-PCS; 2020-05-20)
PROC: 5A09557 Assistance with Respiratory Ventilation, Greater than 96 Consecutive Hours, Continuous Positive Airway Pressure (ICD-10-PCS; 2020-05-20)
PROC: 0W993ZX Drainage of Right Pleural Cavity, Percutaneous Approach, Diagnostic (ICD-10-PCS; principal; 2020-05-22)
PROC: 02HV33Z Insertion of Infusion Device into Superior Vena Cava, Percutaneous Approach (ICD-10-PCS; 2020-05-22)
PROC: 02HV33Z Insertion of Infusion Device into Superior Vena Cava, Percutaneous Approach (ICD-10-PCS; 2020-05-28)
PROC: B548ZZA Ultrasonography of Superior Vena Cava, Guidance (ICD-10-PCS; 2020-05-28)
DX: I13.0 Hypertensive heart and chronic kidney disease with heart failure and stage 1 through stage 4 chronic kidney disease, or unspecified chronic kidney disease (principal); I50.43 Acute on chronic combined systolic (congestive) and diastolic (congestive) heart failure; J91.8 Pleural effusion in other conditions classified elsewhere; T82.534A Leakage of infusion catheter, initial encounter; E11.22 Type 2 diabetes mellitus with diabetic chronic kidney disease; J44.9 Chronic obstructive pulmonary disease, unspecified; I25.10 Atherosclerotic heart disease of native coronary artery without angina pectoris; K21.9 Gastro-esophageal reflux disease without esophagitis; F32.9 Major depressive disorder, single episode, unspecified; N18.3 Chronic kidney disease, stage 3 (moderate); I95.9 Hypotension, unspecified; E11.21 Type 2 diabetes mellitus with diabetic nephropathy; E11.40 Type 2 diabetes mellitus with diabetic neuropathy, unspecified; Z86.718 Personal history of other venous thrombosis and embolism; E11.319 Type 2 diabetes mellitus with unspecified diabetic retinopathy without macular edema; Z20.828 Contact with and (suspected) exposure to other viral communicable diseases; T50.1X5A Adverse effect of loop [high-ceiling] diuretics, initial encounter; I42.0 Dilated cardiomyopathy; I25.5 Ischemic cardiomyopathy; G47.30 Sleep apnea, unspecified; N93.8 Other specified abnormal uterine and vaginal bleeding; E66.9 Obesity, unspecified; Y83.8 Other surgical procedures as the cause of abnormal reaction of the patient, or of later complication, without mention of misadventure at the time of the procedure; Z88.1 Allergy status to other antibiotic agents; Z88.5 Allergy status to narcotic agent; I25.2 Old myocardial infarction; Z95.810 Presence of automatic (implantable) cardiac defibrillator; Z95.1 Presence of aortocoronary bypass graft; Z86.711 Personal history of pulmonary embolism; Z79.01 Long term (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 of 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; Z82.49 Family history of ischemic heart disease and other diseases of the circulatory system
CPT/HCPCS: 32555; 36415; 36600; 71045; 80048; 80053; 81001; 82042; 82150; 82550; 82553; 82570; 82803; 82945; 82962; 83605; 83615; 83735; 83880; 83986; 84132; 84155; 84156; 84157; 84484; 85025; 85027; 85610; 85730; 87040; 87070; 87075; 87101; 87205; 87635; 89050; 93005; 93010; 94660; 96374; 96375; 99285; C9803; J1200; J1250; J1265; J1642; J1940; J2270; J2405; J3490; J7030; J7050

== ENCOUNTER → 2020-10-10 | Outpatient (CLI) | payer MEDICARE, MEDICAID ==
--- NOTE | 2020-10-10 16:10 | RADIOLOGY REPORT (SQ) ---
EXAM DESCRIPTION: CT CHEST WITHOUT IMAGES COMPLETED DATE/TIME: 10/10/2020 3:15 pm REASON FOR STUDY: (J44.9)CHRONIC OBSTRUCTIVE PULMONARY DISEASE, UNSPECIFIED I50.9 HEART FAILURE, UN SPECIFIED I50.20 UNSPECIFIED SYSTOLIC (CONGESTIVE) HEART FAILURE J44.9 CHRONIC OBSTRUCTIVE PULMONAR Y DISEASE, UNSPECIFIED COMPARISON: 05/05/2017 TECHNIQUE: CT scan performed of the chest without intravenous contrast. Images reviewed with lung, soft tissue and bone windows. Reconstructed coronal and sagittal MPR images reviewed. All images st ored on PACS. All CT scanners at this facility use dose modulation, iterative reconstruction, and/or weight based d osing when appropriate to reduce radiation dose to as low as reasonably achievable (ALARA). [facility]: Dose Right [facility]: CareDose [facility]: Dose Right [facility]: Teradose 4D [facility]: [employer] RADIATION DOSE: CT Rad equipment meets quality standard of care and radiation dose reduction techniq ues were employed. CTDIvol: 18.6 mGy. DLP: 752 mGy-cm. mGy. LIMITATIONS: No technical limitations. FINDINGS: LUNGS AND PLEURA: Chronic moderate right pleural effusion slightly increased. Chronic ass ociated airspace disease in the right lower lobe and middle lobe. Left lung is relatively clear. No obvious empyema. HILAR AND MEDIASTINAL STRUCTURES: No identified masses or abnormal nodes. No obvious aneurysm. HEART AND VASCULAR STRUCTURES: No aneurysm. No pericardial effusion. UPPER ABDOMEN: No significant findings. Limited exam. THYROID AND OTHER SOFT TISSUES: No masses. No adenopathy. BONES: No significant finding. HARDWARE: Unchanged position of defibrillator. OTHER: Body wall edema. IMPRESSION: Cardiomegaly. Slight increase in moderate right pleural effusion. No obvious empyema. TECHNICAL DOCUMENTATION: JOB ID: [id number] Quality ID # [id number]: Final reports with documentation of one or more dose reduction techniques (e.g., Au tomated exposure control, adjustment of the mA and/or kV according to patient size, use of iterative reconstruction technique) 2010 [employer]- All Rights Reserved Reading location - IP/workstation name: [email or web address]
== END ==
LOC: RAD 14:48
PROVIDERS: ATTEND Internal Medicine Critical Care Medicine
DX: I50.20 Unspecified systolic (congestive) heart failure (principal); J44.9 Chronic obstructive pulmonary disease, unspecified
CPT/HCPCS: 71250